=== PATIENT | male | born 1950 | race Hispanic/Latino ===

== ENCOUNTER 2016-12-08 19:17 | Inpatient (IN) | payer OTHER ==
[2016-12-08 20:24] LABS: BASO # 0.03 K/mm3 (0.0-2.0); BASO % 0.4 % (0.0-3.0); EOS # 0.1 (0.0-0.7); EOS % 1.3 % (1.5-5.0); GRAN # 5.33 (1.4-6.5); GRAN % 70.7 % (50.0-68.0); HEMATOCRIT 44.7 % (42.0-52.0); LYMPH # 1.5 (1.2-3.4); LYMPH % 19.7 % (22.0-35.0); MEAN CELL VOLUME 86.6 fl (80.0-105.0); MEAN CORPUSCULAR HGB CONC 35.8 g/dl (31.0-37.0); MEAN PLATELET VOLUME 11.1 fl (7.0-11.0); MONO # 0.6 (0.1-0.6); MONO % 7.9 % (1.0-6.0); RED CELL DISTRIBUTION WIDTH 13.5 % (11.5-14.5); WHITE BLOOD COUNT 7.6 10^3/ul (4.5-11.0)
--- NOTE | 2016-12-08 20:32 | ED PDOC ---
Arrival/HPI - General Chief Complaint: Weakness/Neurological Deficit Time Seen by Provider: 12/08/16 19:29 Historian: Patient EM Caveat: Other (Poor historian ) - History of Present Illness Narrative History of Present Illness (Text): 12/08/16 20:37 A 66 year old male, whose past medical history includes DVT of lower extremity, atrial fibrillation, dyspnea, surgical history includes open heart surgery 6 years ago, presents to the emergency department for generalized weakness. The patient also complains of cramps bilaterally in hands and not eating for 3 days. He denies any headaches, fever, chest pain, abdominal pain, or any other complaints at this time. HPI limited due to poor historian. Time/Duration: < week (x2 days) Symptom Onset: Other Symptom Course: Unchanged Activities at Onset: Light Context: Home Past Medical History - Provider Review Nursing Documentation Reviewed: Yes - Tetanus Immunization Tetanus Immunization: Unknown - Cardiac Hx Cardiac Disorders: Yes Hx Cardiac Arrhythmia: Yes (Atrial fibrillation) Hx Congestive Heart Failure: Yes Hx Hypertension: Yes Hx Peripheral Edema: Yes Hx Peripheral Vascular Disease: Yes - Pulmonary Hx Respiratory Disorders: Yes (Pneumonitis) - Neurological Hx Neurological Disorder: Yes Hx Transient Ischemic Attacks (TIA): Yes - HEENT Hx HEENT Disorder: No - Renal Hx Renal Disorder: No - Endocrine/Metabolic Hx Diabetes Mellitus Type 2: Yes - Hematological/Oncological Hx Hepatitis C: Yes - Integumentary Hx Dermatological Disorder: No - Musculoskeletal/Rheumatological Hx Falls: Yes Hx Unsteady Gait: Yes - Gastrointestinal Hx Gastrointestinal Disorders: No - Genitourinary/Gynecological Hx Genitourinary Disorders: No - Psychiatric Hx Anxiety: Yes Hx Depression: Yes Hx Substance Use: Yes (MARIJUANA USE) - Surgical History Hx Cardiac Catheterization: Yes Hx Open Heart Surgery: Yes (CABG) - Suicidal Assessment Feels Threatened In Home Enviroment: No Family/Social History - Physician Review Nursing Documentation Reviewed: Yes Family/Social History: Unknown Family HX Smoking Status: Former Smoker Hx Alcohol Use: No Hx Substance Use: Yes (MARIJUANA USE) Substance used: MARIJUANA Hx Substance Use Treatment: No Allergies/Home Meds Allergies/Adverse Reactions: Allergies acetaminophen [From Percocet] Allergy (Verified 12/08/16 19:46) RASH oxycodone [From Percocet] Allergy (Verified 12/08/16 19:46) RASH warfarin [From Coumadin] Allergy (Verified 12/09/16 12:24) RASH Home Medications: Home Meds Medication Instructions Recorded Confirmed Unobtainable 12/08/16 12/08/16 Review of Systems - Physician Review All systems were reviewed & negative as marked: Yes - Review of Systems Systems not reviewed;Unavailable: Acuity of Condition Constitutional: absent: Fevers Cardiovascular: absent: Chest Pain Gastrointestinal: absent: Abdominal Pain Neurological: absent: Headache Physical Exam Vital Signs Temp Pulse Resp BP Pulse Ox 12/09/16 01:17 68 18 156/72 H 99 12/08/16 23:17 72 20 166/82 H 100 12/08/16 21:17 75 16 169/67 H 99 12/08/16 19:30 97.9 F 101 H 18 171/91 H 98 Temperature: Afebrile Blood Pressure: Hypertensive Pulse: Regular Respiratory Rate: Normal Appearance: Positive for: Well-Appearing, Non-Toxic, Comfortable Pain Distress: None Mental Status: Positive for: Alert and Oriented X 3 - Systems Exam Head: Present: Atraumatic, Normocephalic Pupils: Present: PERRL Extroacular Muscles: Present: EOMI Conjunctiva: Present: Normal Mouth: Present: Moist Mucous Membranes Neck: Present: Normal Range of Motion Respiratory/Chest: Present: Clear to Auscultation, Good Air Exchange. No: Respiratory Distress, Accessory Muscle Use Cardiovascular: Present: Regular Rate and Rhythm, Normal S1, S2. No: Murmurs Abdomen: Present: Normal Bowel Sounds. No: Tenderness, Distention, Peritoneal Signs Back: Present: Normal Inspection Upper Extremity: Present: Normal Inspection. No: Cyanosis, Edema Lower Extremity: Present: Normal Inspection. No: Edema Neurological: Present: GCS=15, CN II-XII Intact, Speech Normal Skin: Present: Warm, Dry, Normal Color. No: Rashes Psychiatric: Present: Alert, Oriented x 3, Normal Insight, Normal Concentration Medical Decision Making ED Course and Treatment: 12/08/16 20:38 Impression: A 66 year old male with generalized weakness. Plan: -- EKG -- Head CT -- Labs -- Chest X-ray -- Urinalysis -- Reassess and disposition Prior Visits: Notes and results from previous visits were reviewed. The patient was last seen in the emergency department on 02/01/14 for chest pain. The patient was hospitalized. Progress Notes: Reviewed EKG, atrial flutter at 98 bpm[address] Non-specific ST/T wave changes. 12/08/16 21:27 Reviewed radiology, Chest X-ray shows no acute processes. CT Head shows: Brain: [id number] atrophy. No intracranial hemorrhage. No mass. Mild encephalomalacia within LEFT frontal region. Few scattered foci of decreased attenuation within periventricular/subcortical white matter. No definite edema. Ventricles: No hydrocephalus. Bones/joints: No acute fracture. Soft tissues: Unremarkable. Vasculature: Atherosclerotic disease of intracranial arteries. Sinuses: No acute sinusitis. Mastoid air cells: No mastoid effusion. Orbits: Unremarkable as visualized. IMPRESSION: 1. Nonspecific white matter changes. Acute infarction may be CT occult within first 24 hours. If a focal deficit persists, consider followup CT or MRI for further evaluation. 2. Incidental/non-acute findings are described above 12/08/16 22:[address] Gardner, covering for Dr. Herring, who is aware and agrees with plan. president celebrity acquistion notified. Pt will go to remote telemetry observation for hyperglycemia under Dr. Herring's service. - Lab Interpretations Microbiology Results: Microbiology Results 12/08/16 20:40 Blood-Venous Blood Culture - Preliminary NO GROWTH AFTER 48 HOURS 12/08/16 17:32 Blood-Venous Blood Culture - Preliminary NO GROWTH AFTER 48 HOURS 12/09/16 13:00 Nose MRSA Culture (Admit) - Final MRSA NOT DETECTED Lab Results: 12/09/16 10:00 12/09/16 10:00 Lab Results 12/09/16 12:53: Ammonia < 9 L 12/09/16 10:00: Sodium 139, Potassium 3.4 L, Chloride 99, Carbon Dioxide 18 L, Anion Gap 25 H, BUN 11, Creatinine 1.0, Est GFR ( Amer) > 60, Est GFR ( Non-Af Amer) > 60, Random Glucose 460 H*, Calcium 9.2, Total Bilirubin 1.0, AST 29, ALT 15, Alkaline Phosphatase 111, Total Protein 6.5, Albumin 3.8, Globulin 2.7, Albumin/Globulin Ratio 1.4 12/09/16 10:00: WBC 9.0, RBC 4.90, Hgb 15.2, Hct 43.5, MCV 88.8, MCH 31.0, MCHC 34.9, RDW 13.9, Plt Count 191, MPV 11.9 H, Gran % 82.3 H, Lymph % (Auto) 11.2 L , Merrick % (Auto) 5.6, Eos % (Auto) 0.7 L, Baso % (Auto) 0.2, Gran # 7.43 H, Lymph # 1.0 L, Merrick # 0.5, Eos # 0.1, Baso # 0.02 12/09/16 09:02: POC Glucose (mg/dL) 483 H* 12/09/16 08:10: PT 11.4, INR 1.06, APTT 22.3 L, D-Dimer, Quantitative 1.30 H 12/09/16 08:10: Free T4 2.06, TSH 3rd Generation 2.61 12/09/16 07:20: POC Glucose (mg/dL) 495 H* 12/09/16 07:10: Total Creatine Kinase 49, Troponin I 0.04, Triglycerides 219 H, Cholesterol 161, LDL Cholesterol Direct 104, HDL Cholesterol 30, Prolactin 19.3 H 12/09/16 07:05: Hemoglobin A1c 12.7 H 12/09/16 05:17: POC Glucose (mg/dL) 380 H 12/09/16 03:30: Urine Opiates Screen Negative, Urine Methadone Screen Negative, Ur Barbiturates Screen Negative, Ur Phencyclidine Scrn Negative, Ur Amphetamines Screen Negative, U Benzodiazepines Scrn Positive H, U Oth Cocaine Metabols Negative, U Cannabinoids Screen Positive H 12/09/16 03:30: Urine Color Yellow, Urine Appearance Clear, Urine pH 6.5, Ur Specific [place] 1.010, Urine Protein 30 H, Urine Glucose (UA) >=1000, Urine Ketones Negative, Urine Blood Trace-lysed H, Urine Nitrate Negative, Urine Bilirubin Negative, Urine Urobilinogen 1.0 H, Ur Leukocyte Esterase Negative, Urine RBC 0 - 2, Urine WBC 0 - 2, Ur Epithelial Cells 0 - 2 12/09/16 00:50: Troponin I 0.04 D 12/09/16 00:44: POC Glucose (mg/dL) 398 H 12/08/16 17:32: Salicylates < 1 L 12/08/16 17:32: TSH 3rd Generation 3.23, Alcohol, Quantitative < 10 12/08/16 17:32: Sodium 136, Potassium 3.4 L, Chloride 96 L, Carbon Dioxide 26, Anion Gap 17, BUN 10, Creatinine 1.0, Est GFR ( Amer) > 60, Est GFR (Non- Af Amer) > 60, Random Glucose 495 H* D, Calcium 9.6, Phosphorus 2.9, Magnesium 1.8, Total Bilirubin 1.2, AST 25, ALT 25, Alkaline Phosphatase 133, Lactate Dehydrogenase 480, Total Creatine Kinase 50, Troponin I 0.03 D, Total Protein 7.0, Albumin 4.1, Globulin 2.9, Albumin/Globulin Ratio 1.4 12/08/16 17:32: PT 11.2, INR 1.04, APTT 22.4 L 12/08/16 17:32: WBC 7.6 D, RBC 5.16, Hgb 16.0, Hct 44.7, MCV 86.6, MCH 31.0, MCHC 35.8, RDW 13.5, Plt Count 189, MPV 11.1 H, Gran % 70.7 H, Lymph % (Auto) 19.7 L, Merrick % (Auto) 7.9 H, Eos % (Auto) 1.3 L, Baso % (Auto) 0.4, Gran # 5.33 , Lymph # 1.5, Merrick # 0.6, Eos # 0.1, Baso # 0.03 I have reviewed the lab results: Yes - RAD Interpretation Radiology Orders: 12/08/16 19:46 HEAD W/O CONTRAST [CT] Stat 12/08/16 19:47 CHEST PORTABLE [RAD] Stat 12/09/16 05:33 HEAD W/O (CODE STROKE) [CT] Stat 12/09/16 07:25 DUPLEX LOWER EXTRM VEIN BILAT [US] Urgent 12/09/16 13:31 ABDOMEN COMPLETE [US] Stat 12/10/16 05:00 BRAIN WITHOUT CONTRAST [MRI] Stat 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 Hand: ED Physician, Radiologist - EKG Interpretation Interpreted by ED Physician: Yes Type: 12 lead EKG - Medication Orders Current Medication Orders: Aspirin (Aspirin Chewable) 81 mg PO DAILY [facility] Last Admin: 12/10/16 09:42 Dose: 81 mg Atorvastatin Calcium (Lipitor) 40 mg PO DIN CM Last Admin: 12/10/16 17:08 Dose: 40 mg Gabapentin (Neurontin) 300 mg PO TID CM PRN Reason: Protocol Last Admin: 12/10/16 17:09 Dose: 300 mg Re-Assess: Reassess Psych Meds Document 12/10/16 18:09 [id number] (Rec: 12/10/16 18:21 [id number] [facility] [id number] Reassess Psych Med Effective Levetiracetam (Keppra 500mg Ivpb) 500 mg in 100 mls @ 460 mls/hr IV Q12 [facility] Last Admin: 12/10/16 21:35 Dose: 460 mls/hr Insulin Detemir (Levemir) 20 unit SC Q12 CM Last Admin: 12/10/16 22:30 Dose: 20 unit Insulin Human Regular (Humulin R High) 0 units SC ACHS CM PRN Reason: Protocol Last Admin: 12/10/16 22:30 Dose: Not Given Non-Admin Reason: Blood Sugar Parameter Levetiracetam (Keppra) 500 mg PO BID [facility] Last Admin: 12/09/16 11:37 Dose: Not Given Non-Admin Reason: NPO Comments: residents made aware of failed swallow screen. awaiting new orders Lorazepam (Ativan) 2 mg IVP Q2 PRN; Protocol PRN Reason: Seizure activity Last Admin: 12/10/16 21:00 Dose: 2 mg Re-Assess: Reassess Psych Meds Document 12/10/16 21:30 PD (Rec: 12/10/16 23:29 PD [id number]) Reassess Psych Med Effective Metoprolol Tartrate (Lopressor) 5 mg IVP Q6H PRN PRN Reason: Systolic Blood Pressure Last Admin: 12/09/16 16:57 Dose: 5 mg Metoprolol Tartrate (Lopressor) 25 mg PO BID [facility] Last Admin: 12/10/16 17:08 Dose: 25 mg Pantoprazole Sodium (Protonix Ec Tab) 40 mg PO 0600 [facility] Last Admin: 12/11/16 05:23 Dose: 40 mg Rivaroxaban (Xarelto) 15 mg PO DAILY [facility] PRN Reason: Protocol Last Admin: 12/09/16 11:37 Dose: Not Given Non-Admin Reason: NPO Thiamine HCl (Vitamin B1 Inj) 100 mg IM DAILY [facility] Last Admin: 12/10/16 09:43 Dose: 100 mg Discontinued Medications Enoxaparin Sodium (Lovenox) 100 mg SC Q12H [facility] PRN Reason: Protocol Last Admin: 12/11/16 05:32 Dose: 100 mg Levetiracetam 1,000 mg/ Sodium (Chloride) 110 mls @ 440 mls/hr IV ONCE ONE Stop: 12/09/16 08:10 Last Admin: 12/09/16 08:16 Dose: 440 mls/hr Insulin Human Regular 100 (units/ Sodium Chloride) 100 mls @ 1 mls/hr IV .Q24H PRN; Protocol; 1 UNITS/HR PRN Reason: TITRATE PER MD ORDER Stop: 12/10/16 10:00 Last Titration: 12/10/16 07:16 Dose: 1.5 units/hr, 1.5 mls/hr Potassium Chloride (Potassium Chloride 20 Meq/100 Ml) 20 meq in 100 mls @ 50 mls/hr IVPB Q2H CM Stop: 12/09/16 14:29 Last Admin: 12/09/16 15:21 Dose: 50 mls/hr Sodium Chloride (Sodium Chloride 0.9%) 2,000 mls @ 999 mls/hr IV .Q2H1M STA Stop: 12/09/16 12:29 Last Admin: 12/09/16 10:39 Dose: 999 mls/hr Potassium Chloride (Potassium Chloride 20 Meq/100 Ml) 20 meq in 100 mls @ 50 mls/hr IVPB Q2H CM Stop: 12/10/16 09:14 Last Admin: 12/10/16 08:28 Dose: 50 mls/hr Insulin Human Regular (Humulin R) 6 units SC STAT STA Stop: 12/08/16 22:01 Last Admin: 12/08/16 22:10 Dose: 6 units Labetalol HCl (Trandate) 10 mg IV Q6 [facility] Last Admin: 12/10/16 00:00 Dose: Not Given Non-Admin Reason: BP Parameters Not Met Labetalol HCl (Trandate) 10 mg IV ONCE ONE Stop: 12/09/16 18:24 Last Admin: 12/09/16 18:36 Dose: 10 mg Lorazepam (Ativan) Confirm Administered Dose 2 mg .ROUTE .STK-MED ONE Stop: 12/09/16 05:30 Last Admin: 12/09/16 07:00 Dose: Lorazepam (Ativan) 2 mg IVP ONCE ONE PRN Reason: Protocol Stop: 12/09/16 05:34 Last Admin: 12/09/16 06:59 Dose: 2 mg Lorazepam (Ativan) 2 mg IVP Q6H PRN; Protocol PRN Reason: Seizure activity Last Admin: 12/09/16 08:06 Dose: 2 mg Re-Assess: Reassess Psych Meds Document 12/09/16 10:00 JF (Rec: 12/09/16 15:55 [facility] [id number]) Reassess Psych Med Effective Lorazepam (Ativan) Confirm Administered Dose 2 mg .ROUTE .STK-MED ONE Stop: 12/09/16 07:15 Metoprolol Tartrate (Lopressor) 25 mg PO BID CM Last Admin: 12/09/16 17:07 Dose: Not Given Non-Admin Reason: NPO Pantoprazole Sodium (Protonix Inj) 40 mg IVP DAILY [facility] Last Admin: 12/10/16 09:43 Dose: 40 mg Potassium Chloride (K-Dur 20 Meq Er Tab) 40 meq PO STAT STA Stop: 12/08/16 23:26 Last Admin: 12/08/16 23:31 Dose: 40 meq - Scribe Statement The provider has reviewed the documentation as recorded by the Abdi Montez Provider Scribe Attestation: All medical record entries made by the Peteribvalentino were at my direction and personally dictated by me. I have reviewed the chart and agree that the record accurately reflects my personal performance of the history, physical exam, medical decision making, and the department course for this patient. I have also personally directed, reviewed, and agree with the discharge instructions and disposition. Disposition/Present on Arrival - Present on Arrival Any Indicators Present on Arrival: No History of DVT/PE: Yes History of Uncontrolled Diabetes: No Urinary Catheter: No History of Decub. Ulcer: No History Surgical Site Infection Following: None - Disposition Have Diagnosis and Disposition been Completed?: Yes Diagnosis: Dehydration, Hyperglycemia Disposition: HOSPITALIZED Disposition Time: 23:00 Condition: FAIR
[2016-12-08 20:37] LABS: ALB/GLOB RATIO 1.4 (1.1-1.8); ALKALINE PHOSPHATASE 133 U/L (38-133); ALT/SGPT 25 U/L (7-56); AST/SGOT 25 U/L (15-59); BILIRUBIN,TOTAL 1.2 mg/dL (0.2-1.3); BLOOD UREA NITROGEN 10 mg/dL (7-21); CALCIUM 9.6 mg/dL (8.4-10.5); CARBON DIOXIDE 26 mmol/L (21-33); CHLORIDE 96 mmol/L (98-107); GFR AFRICAN-AMERICAN > 60; MAGNESIUM 1.8 mg/dL (1.7-2.2); PHOSPHOROUS 2.9 mg/dL (2.5-4.5); POTASSIUM 3.4 mmol/L (3.6-5.0); SODIUM 136 mmol/L (132-148)
[2016-12-08 20:43] LABS: INR 1.04 (0.93-1.08); PARTIAL THROMBOPLASTIN TIME 22.4 Seconds (23.7-30.8)
[2016-12-08 20:47] LABS: TROPONIN I 0.03 ng/mL
[2016-12-08 20:49] LABS: ALCOHOL SERUM < 10 mg/dL (0-10)
[2016-12-08 20:50] LABS: GLUCOSE,RANDOM 495 mg/dL (70-110)
[2016-12-08 21:07] LABS: THYROID STIMULATING HORMONE 3.23 mIU/mL (0.46-4.68)
--- NOTE | 2016-12-08 21:26 | CT ---
EXAM: CT Head Without Intravenous Contrast CLINICAL HISTORY: 66 years old, male; Signs and symptoms; Altered mental status/memory loss; Additional info: AMS TECHNIQUE: Axial computed tomography images of the head/brain without intravenous contrast. All CT scans at this facility use one or more dose reduction techniques, viz.: automated exposure control; ma/kV adjustment per patient size (including targeted exams where dose is matched to indication; i.e. head); or iterative reconstruction technique. COMPARISON: No relevant prior studies available. FINDINGS: Brain: [id number] atrophy. No intracranial hemorrhage. No mass. Mild encephalomalacia within LEFT frontal region. Few scattered foci of decreased attenuation within periventricular/subcortical white matter. No definite edema. Ventricles: No hydrocephalus. Bones/joints: No acute fracture. Soft tissues: Unremarkable. Vasculature: Atherosclerotic disease of intracranial arteries. Sinuses: No acute sinusitis. Mastoid air cells: No mastoid effusion. Orbits: Unremarkable as visualized. IMPRESSION: 1. Nonspecific white matter changes. Acute infarction may be CT occult within first 24 hours. If a focal deficit persists, consider followup CT or MRI for further evaluation. 2. Incidental/non-acute findings are described above.
[2016-12-08] MEDS ORDERED: Insulin Regular 1 UNITS/0.01 ML ML SC STA (22:00)
[2016-12-08] MEDS ORDERED: Potassium Chloride 20 mEq ER Tab PO STA (23:25)
--- NOTE | 2016-12-09 02:03 | CP.PCM.HP ---
History of Present Illness - History of Present Illness History of Present Illness: CC: Weakness HPI: Patient is a 66 year old male with pmh sig for CAD, CABG in 2010, Afib, right illofemoral vein DVT, CHF, and DM2 who complains of weakness and bilateral upper extremity hand cramping, tremor and numbness sensations. Patient is noted to be poor historian and with sporadic recall of past medical history and current condition. Patient reports for the past three days he has not felt himself. He reports feeling fatigued and with generalized weakness. He reports minimal nutritional intake and limited clear fluids. He does report drinking mostly 2 Liter bottles of Coca-Cola as his primary mode of hydration. Patient reports he has episodes of cramping, twitching that last 1-3 minutes and periodically happen through out the day without pattern. 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 Associated symptoms for patient include shortness of breath with walking. Patient reports for past few months he experiences shortness of breath after walking half a block. He denies headache, fever, chills, chest pain, abdominal pain or change in bowel habits. PMH: Afib, CHF, hx of DVT PSH: CABG in 2010 FMH: Non-contributory SH: Tobacco: former smoker, ETOH: Denies, ID: THC, denies IVDA ALL: Acetaminophen and oxycodone Meds: See JUN PMD: [facility] Present on Admission - Present on Admission Any Indicators Present on Admission: Yes History of DVT/PE: Yes History of Uncontrolled Diabetes: No Urinary Catheter: No Decubitus Ulcer Present: No Review of Systems - Constitutional Constitutional: Headache. absent: Chills, Fever - EENT Eyes: absent: Blurred Vision, Change in Vision, Diplopia Ears: absent: Decreased Hearing, Ear Pain Nose/Mouth/Throat: absent: Epistaxis, Nasal Discharge, Sore Throat - Cardiovascular Cardiovascular: Dyspnea on Exertion (with walking up to 1/2 block). absent: Chest Pain, Chest Pain at Rest, Leg Edema, Orthopnea, Paroxysmal Nocturnal Dyspnea, Rapid Heart Rate - Respiratory Respiratory: absent: Cough, Dyspnea, Wheezing - Gastrointestinal Gastrointestinal: absent: Abdominal Pain, Bloating, Change in Bowel Habits - Genitourinary Genitourinary: absent: Difficulty Urinating, Dysuria, Hematuria - Integumentary Integumentary: absent: Pruritus, Rash, Swelling - Neurological Neurological: Weakness (generalized). absent: Abnormal Gait, Convulsions, Dizziness, Frequent Falls, Sensory Deficit Additional comments: periodic cramping/twitching with hands bilateral as well as facial muscles - Psychiatric Psychiatric: absent: Anxiety, Depression, Suicidal Ideation - Hematologic/Lymphatic Hematologic: Easy Bruising (secondary to blood thinners) Past Patient History - Tetanus Immunizations Tetanus Immunization: Unknown - Past Medical History & Family History Past Medical History?: Yes - Past Social History Smoking Status: Former Smoker Alcohol: None Drugs: Cannabis (hx of) - CARDIAC Hx Cardiac Disorders: Yes Hx Cardia Arrhythmia: Yes (Atrial fibrillation) Hx Congestive Heart Failure: Yes Hx Hypertension: Yes Hx Peripheral Edema: Yes Hx Peripheral Vascular Disease: Yes - PULMONARY Hx Respiratory Disorders: Yes (Pneumonitis) - NEUROLOGICAL Hx Neurological Disorder: Yes Hx Transient Ischemic Attacks (TIA): Yes - HEENT Hx HEENT Problems: No - RENAL Hx Chronic Kidney Disease: No - ENDOCRINE/METABOLIC Hx Diabetes Mellitus Type 2: Yes - HEMATOLOGICAL/ONCOLOGICAL Hx Hepatitis C: Yes - INTEGUMENTARY Hx Dermatological Problems: No - MUSCULOSKELETAL/RHEUMATOLOGICAL Hx Falls: Yes Hx Unsteady Gait: Yes - GASTROINTESTINAL Hx Gastrointestinal Disorders: No - GENITOURINARY/GYNECOLOGICAL Hx Genitourinary Disorders: No - PSYCHIATRIC Hx Anxiety: Yes Hx Depression: Yes Hx Substance Use: Yes (MARIJUANA USE) - SURGICAL HISTORY Hx Cardiac Catheterization: Yes Hx Open Heart Surgery: Yes (CABG) Meds Allergies/Adverse Reactions: Allergies Allergy/AdvReac Type Severity Reaction Status Date / Time acetaminophen [From Percocet] Allergy RASH Verified 12/08/16 19:46 oxycodone [From Percocet] Allergy RASH Verified 12/08/16 19:46 Physical Exam - Constitutional Appears: Well - Head Exam Head Exam: ATRAUMATIC, NORMAL INSPECTION, NORMOCEPHALIC - Eye Exam Eye Exam: EOMI, PERRL Pupil Exam: NORMAL ACCOMODATION, PERRL - ENT Exam ENT Exam: Mucous Membranes Dry, Normal Exam - Neck Exam Neck exam: Positive for: Full Rom. Negative for: Tenderness - Respiratory Exam Respiratory Exam: Clear to Auscultation Bilateral, NORMAL BREATHING PATTERN - Cardiovascular Exam Cardiovascular Exam: Irregular Rhythm, +S1, +S2 - GI/Abdominal Exam GI & Abdominal Exam: Distended, Normal Bowel Sounds, Soft - Extremities Exam Extremities exam: Positive for: normal inspection, pedal pulses present. Negative for: calf tenderness - Back Exam Back exam: NORMAL INSPECTION, paraspinal tenderness - Neurological Exam Neurological exam: Alert, CN II-XII Intact, Normal Gait, Oriented x3, Reflexes Normal - Psychiatric Exam Psychiatric exam: Normal Affect, Normal Mood - Skin Skin Exam: Dry, Intact Additional comments: statis dermatitis anterior shins bilateral, surgical scar noted left anterior benitez of lower extremity Results - Vital Signs Recent Vital Signs: Last Vital Signs Temp 97.9 F 12/08/16 19:30 Pulse 101 H 12/08/16 19:30 Resp 18 12/08/16 19:30 BP 171/91 H 12/08/16 19:30 Pulse Ox 98 12/08/16 19:30 - Labs Result Diagrams: 12/08/16 17:32 12/08/16 17:32 Labs: Laboratory Results - last 24 hr 12/09/16 12/09/16 00:44 00:50 POC Glucose (mg/dL) 398 H Troponin I 0.04 D Assessment & Plan - Assessment and Plan (Free Text) Assessment: 66 year old male with pmh sig for CAD, CABG in 2010, Afib, hx of DVT, and DM who presents to ED complaining of 3 day history of weakness and bilateral hand and face tremor/twitching episodes. Patient is noted to be euvolemic with minimal hypokalemia and elevated bg of 400 plus. Patient is admitted for observation. Plan: 1. Generalized weakness - Generalized weakness for past 3 days, afebrile on admission - K 3.4, bg 441, other electrolytes normal, replace potassium, continue to monitor - TSH normal - Urine drug screen - Sputum clx, blood clx, UA, clx - Neurovascularly intact, Head CT showing nonspecific white matter changes, acute infarction may be CT occult within first 24 hours. If a focal deficit persists consider follow up CT or MRI for further evaluation - Neuro checks Q4H 2. hx of Atrial fibrillation - EKG in ED showing Atrial Flutter at 98 bpm, non-specific ST/T wave changes - rate control with Lopressor - Heparin and ASA - Continue to monitor 3. hx of CAD - Lipid panel - Trending troponins - Statin - heart healthy diet 4. DM2 - HgA1c - ACHS - ISS-high 5. GI/DVT ppx - Protonix - Heparin SC - Date & Time Date: 12/09/16 Time: 02:28
[2016-12-09 03:57] LABS: PH,URINE 6.5 (4.7-8.0); URINE BILIRUBIN NEGATIVE (NEGATIVE); URINE BLOOD TRACE-LYSED (NEGATIVE); URINE GLUCOSE (UA) >=1000 mg/dL (NEGATIVE); URINE KETONE NEGATIVE (NEGATIVE); URINE LEUKOCYTE ESTERASE NEGATIVE Leu/uL (NEGATIVE); URINE PROTEIN 30 mg/dL (<30 mg/dL)
[2016-12-09 04:03] LABS: URINE APPEARANCE CLEAR (CLEAR); URINE COLOR YELLOW (YELLOW)
[2016-12-09 04:12] LABS: URINE EPITHELIAL CELLS 0 - 2 /hpf (0-5); URINE RBC 0 - 2 /hpf (0-2); URINE WBC 0 - 2 /hpf (0-6)
[2016-12-09] MEDS: Metoprolol 1 mg/ml Inj IVP PRN ×2 (05:30→16:57)
--- NOTE | 2016-12-09 05:50 | CP.PCM.PN ---
Subjective - Date & Time of Evaluation Date of Evaluation: 12/09/16 Time of Evaluation: 05:44 - Subjective Subjective: Rapid Response Note FLAT HAMMERER called for seizure like activity witnessed by nurse at 5:15am. FLAT HAMMERER responded immediately. As per nurse, patient was having generalized convulsions. Patients vitals noted to be BP 208/130, P: 92, R: 22, 02: 99 Gluc : 160. He was noted to be in a.flutter, rate controlled which he was on admission. At 5:30am, patient was noted to be holding up his L upper extremity with L eye slightly closed with both eyes blinking witnessed by FLAT HAMMERER team. Patient was talking coherently throughout activity. No tongue biting was noted. 2mg of Ativan was given. Objective - Vital Signs/Intake and Output Vital Signs (last 24 hours): Temp Pulse Resp BP Pulse Ox 97.9 F 68 18 156/72 H 99 12/08/16 19:30 12/09/16 01:17 12/09/16 01:17 12/09/16 01:17 12/09/16 01:17 - Medications Medications: Current Medications Aspirin (Aspirin Chewable) 81 mg PO DAILY [facility] Atorvastatin Calcium (Lipitor) 40 mg PO DIN [facility] Heparin Sodium (Porcine) (Heparin) 5,000 units SC Q12 [facility] PRN Reason: Protocol Insulin Human Regular (Humulin R High) 0 units SC ACHS [facility] PRN Reason: Protocol Lorazepam (Ativan) 2 mg IVP ONCE ONE PRN Reason: Protocol Stop: 12/09/16 05:34 Metoprolol Tartrate (Lopressor) 5 mg IVP Q6H PRN PRN Reason: Systolic Blood Pressure Pantoprazole Sodium (Protonix Inj) 40 mg IVP DAILY [facility] - Labs Labs: PT 11.2 Seconds (9.9-11.8) 12/08/16 17:32 INR 1.04 (0.93-1.08) 12/08/16 17:32 APTT 22.4 Seconds (23.7-30.8) L 12/08/16 17:32 - Constitutional Appears: No Acute Distress - Head Exam Head Exam: ATRAUMATIC, NORMAL INSPECTION, NORMOCEPHALIC - Eye Exam Eye Exam: Normal appearance, PERRL Pupil Exam: NORMAL ACCOMODATION, PERRL - ENT Exam ENT Exam: Mucous Membranes Moist - Neck Exam Neck Exam: Full ROM - Respiratory Exam Respiratory Exam: Clear to Ausculation Bilateral, NORMAL BREATHING PATTERN. absent: Rales, Rhonchi, Wheezes - Cardiovascular Exam Cardiovascular Exam: Irregular Rhythm, +S1, +S2. absent: Gallop, Rubs, Murmur - GI/Abdominal Exam GI & Abdominal Exam: Soft, Normal Bowel Sounds. absent: Rigid, Tenderness, Mass , Rebound - Extremities Exam Extremities Exam: Normal Inspection. absent: Calf Tenderness, Pedal Edema - Neurological Exam Neurological Exam: Alert, Awake, CN II-XII Intact, Oriented x3 Neuro motor strength exam: Left Upper Extremity: 4, Right Upper Extremity: 5, Left Lower Extremity: 5, Right Lower Extremity: 5 - Psychiatric Exam Psychiatric exam: Normal Affect, Normal Mood - Skin Skin Exam: Dry, Intact, Normal Color, Warm Assessment and Plan - Assessment and Plan (Free Text) Assessment: This is a 66Y M with PMH HTN, a.fib, CAD, DM admitted for L arm pain x 3 days. FLAT HAMMERER called for seizure like activity. Of note, head CT in ED was negative for acute findings. Utox positive for benzo and marijuana. Plan: - Repeat head CT - Consult Neuro - EKG showed atrial flutter with HR@95 - Lopressor given - CK ordered - seizure precaution/aspiration precaution
--- NOTE | 2016-12-09 07:46 | RAD ---
HISTORY: Altered mental status COMPARISON: 02/01/2014. FINDINGS: LUNGS: There is mild pulmonary venous congestion. No lobar consolidation. PLEURA: No significant pleural effusion identified, no pneumothorax apparent. CARDIOVASCULAR: The heart is normal in size. Status post CABG. OSSEOUS STRUCTURES: No significant abnormalities. VISUALIZED UPPER ABDOMEN: Normal. OTHER FINDINGS: None. IMPRESSION: No active pulmonary disease.
[2016-12-09] MEDS ORDERED: levETIRAcetam 1,000 MG in Sodium Chloride 0.9% 100 ML IV ONE (07:56)
[2016-12-09 08:04] LABS: TROPONIN I 0.04 ng/mL
--- NOTE | 2016-12-09 08:08 | CT ---
PROCEDURE: CT HEAD WITHOUT CONTRAST. HISTORY: seizure COMPARISON: 12/08/2016. TECHNIQUE: Axial computed tomography images were obtained through the head/brain without intravenous contrast. Radiation dose: Total exam DLP = 802.95 mGy-cm. This CT exam was performed using one or more of the following dose reduction techniques: Automated exposure control, adjustment of the mA and/or kV according to patient size, and/or use of iterative reconstruction technique. FINDINGS: HEMORRHAGE: No intracranial hemorrhage. BRAIN: There is focal cystic encephalomalacia in the left frontal lobe. There is no mass, mass effect or abnormal extra-axial fluid collection. There are mild chronic microangiopathic changes. VENTRICLES: There is moderate age-related global parenchymal volume loss and proportionate enlargement of the ventricles and cortical sulci. CALVARIUM: The skull base and calvarium are normal. PARANASAL SINUSES: Predominantly clear. MASTOID AIR CELLS: Predominantly clear. OTHER FINDINGS: None. IMPRESSION: 1. No acute intracranial abnormality. If there is a persistent focal neurologic deficit and an ongoing clinical concern for acute infarction, an MRI of the brain without intravenous contrast would be a more sensitive modality for evaluation of hyperacute/acute ischemic infarction. 2. Cystic encephalomalacia in the left frontal lobe, sequela of remote MCA territory infarction. 3. Mild chronic microangiopathic changes and moderate age-related global parenchymal volume loss. Important findings were discussed with Dr. Cox on 12/09/2016 at 8:05 a.m.
[2016-12-09] MEDS: Insulin Reg-HIGH-Coverage SC SCH ×3 (08:19→17:07)
[2016-12-09 08:26] LABS: INR 1.06 (0.93-1.08); PARTIAL THROMBOPLASTIN TIME 22.3 Seconds (23.7-30.8)
[2016-12-09 08:28] LABS: D DIMER 1.3 mg/L FEU (0-0.50)
--- NOTE | 2016-12-09 08:30 | CP.PCM.PN ---
Subjective - Date & Time of Evaluation Date of Evaluation: 12/09/16 Time of Evaluation: 07:34 - Subjective Subjective: RAPID RESPONSE NOTE/CODE STROKE Rapid response was called at 7:34am for seizure like activity witnessed by artificial insemination technician, PHOTOGRAPH RETOUCHER responded immediately. Patient was found laying flat on CT table. Per CT staff, patient had a generalized seizure that lasted 3 minutes. This was followed by a 1 minute seizure. Patient vitals noted to be BP: 149/104, HR 147- > 118 RR: 20 Sp02: 97%. Patient appears drowsy but answers questions appropriately. Patient had received total of 6mg of Ativan since admission. No tongue biting was noted. STAT EKG was ordered. Patient was noted to have left sided weakness. CODE STROKE was called at 7:50am. PCP was notified. Objective - Vital Signs/Intake and Output Vital Signs (last 24 hours): Temp Pulse Resp BP Pulse Ox 97.9 F 169 H 18 204/130 H 99 12/08/16 19:30 12/09/16 05:30 12/09/16 01:17 12/09/16 05:30 12/09/16 01:17 Intake and Output: 12/09/16 12/09/16 06:59 18:59 Intake Total 360 Output Total 0 Balance 360 - Medications Medications: Current Medications Aspirin (Aspirin Chewable) 81 mg PO DAILY [facility] Atorvastatin Calcium (Lipitor) 40 mg PO DIN [facility] Gabapentin (Neurontin) 300 mg PO TID [facility] PRN Reason: Protocol Heparin Sodium (Porcine) (Heparin) 5,000 units SC Q12 [facility] PRN Reason: Protocol Insulin Human Regular (Humulin R High) 0 units SC ACHS [facility] PRN Reason: Protocol Last Admin: 12/09/16 08:19 Dose: 15 units Levetiracetam (Keppra) 500 mg PO BID [facility] Lorazepam (Ativan) 2 mg IVP Q6H PRN; Protocol PRN Reason: Seizure activity Metoprolol Tartrate (Lopressor) 5 mg IVP Q6H PRN PRN Reason: Systolic Blood Pressure Last Admin: 12/09/16 05:30 Dose: 5 mg Metoprolol Tartrate (Lopressor) 25 mg PO BID [facility] Pantoprazole Sodium (Protonix Inj) 40 mg IVP DAILY [facility] Rivaroxaban (Xarelto) 15 mg PO DAILY [facility] PRN Reason: Protocol Thiamine HCl (Vitamin B1 Inj) 100 mg IM DAILY [facility] - Labs Labs: PT 11.2 Seconds (9.9-11.8) 12/08/16 17:32 INR 1.04 (0.93-1.08) 12/08/16 17:32 APTT 22.4 Seconds (23.7-30.8) L 12/08/16 17:32 - Constitutional Appears: No Acute Distress - Head Exam Head Exam: ATRAUMATIC, NORMAL INSPECTION - Eye Exam Eye Exam: EOMI, Normal appearance Pupil Exam: NORMAL ACCOMODATION - ENT Exam ENT Exam: Mucous Membranes Moist - Neck Exam Neck Exam: Full ROM - Respiratory Exam Respiratory Exam: Clear to Ausculation Bilateral. absent: Rales, Rhonchi, Wheezes - Cardiovascular Exam Cardiovascular Exam: Tachycardia, +S1, +S2 - GI/Abdominal Exam GI & Abdominal Exam: Soft, Normal Bowel Sounds. absent: Guarding, Rigid, Tenderness, Rebound - Extremities Exam Extremities Exam: absent: Calf Tenderness, Full ROM, Pedal Edema - Back Exam Back Exam: NORMAL INSPECTION - Neurological Exam Neurological Exam: Awake (Drowsy, easily arousable) Neuro motor strength exam: Left Upper Extremity: 0, Right Upper Extremity: 4, Left Lower Extremity: 0, Right Lower Extremity: 4 - Skin Skin Exam: Dry, Normal Color, Warm Assessment and Plan - Assessment and Plan (Free Text) Assessment: 66 yo male with past medical history of CAD, CABG in 2010, Afib, hx of DVT, and DM who presents to ED complaining of 3 day history of weakness and bilateral hand and face tremor/twitching episodes. Patient is noted to be euvolemic with minimal hypokalemia and elevated bg of 400 plus. Rapid response called for seizure activity at CAT scan. 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 STAT Labs ordered: CBC, CMP, Prolactin, TSH, Lipid panel, CPK 2. MRI brain ordered, was not done immediately as MRI checklist could not be verified, Neurology aware 3. Case discussed with Dr Love, recommends giving loading dose of Keppra 1000mg STAT, followed by 500mg BID 4. Neuro checks Q2H, aspiration precautions, seizure precautions, fall precautions, HOB elevated 45 degrees, swallow eval 5. ICU consulted and evaluated the patient, will be transferred to Critical care unit for closer monitoring and more frequent neuro checks 6. Plan discussed with attending Yaneli Negro DO, PGY-1 NIHSS Scale ([place]) Time Performed: 07:40 - How Severe is the Stoke Baseline Level of Consciousness: 1=Drowsy LOC to Questions: 1=One correct LOC to commands: 1=Obeys one correctly Best Gaze: 1=Partial gaze palsy Visual: 0=No visual loss Facial: 1=Minor asymmetry Motor Arm - Left: 4=No movement Motor Arm - Right: 0=No drift Motor Leg - Left: 4=No movement Motor Leg - Right: 0=No drift Limb Ataxia: 0=Absent Sensory: 0=Normal Best Language: 0=No aphasia Dysarthia: 1=Mild to moderate slurring Extinction & Inattention (Neglect): 0=Normal, no object Score: 14 Risk Level: Mod Stroke Risk
[2016-12-09 08:52] LABS: FREE T4 2.06 ng/dL (0.78-2.19)
[2016-12-09 09:05] LABS: THYROID STIMULATING HORMONE 2.61 mIU/mL (0.46-4.68)
[2016-12-09] MEDS ORDERED: levETIRAcetam 500 mg/5ml UD cups PO SCH (10:00)
[2016-12-09 10:10] LABS: BASO # 0.02 K/mm3 (0.0-2.0); BASO % 0.2 % (0.0-3.0); EOS # 0.1 (0.0-0.7); EOS % 0.7 % (1.5-5.0); GRAN # 7.43 (1.4-6.5); GRAN % 82.3 % (50.0-68.0); HEMATOCRIT 43.5 % (42.0-52.0); LYMPH % 11.2 % (22.0-35.0); MEAN CELL VOLUME 88.8 fl (80.0-105.0); MEAN CORPUSCULAR HGB CONC 34.9 g/dl (31.0-37.0); MEAN PLATELET VOLUME 11.9 fl (7.0-11.0); MONO # 0.5 (0.1-0.6); MONO % 5.6 % (1.0-6.0); RED CELL DISTRIBUTION WIDTH 13.9 % (11.5-14.5)
--- NOTE | 2016-12-09 10:11 | CARD ---
APPROVED REPORT EKG Measurement Heart [id number] <Conclusion> Atrial flutter with variable AV block ST & T wave abnormality, consider inferior ischemia ST & T wave abnormality, consider anterolateral ischemia Abnormal ECG
[2016-12-09 10:12] LABS: ALB/GLOB RATIO 1.4 (1.1-1.8); ALKALINE PHOSPHATASE 111 U/L (38-133); ALT/SGPT 15 U/L (7-56); AST/SGOT 29 U/L (15-59); BLOOD UREA NITROGEN 11 mg/dL (7-21); CALCIUM 9.2 mg/dL (8.4-10.5); CARBON DIOXIDE 18 mmol/L (21-33); CHLORIDE 99 mmol/L (98-107); GFR AFRICAN-AMERICAN > 60; POTASSIUM 3.4 mmol/L (3.6-5.0); SODIUM 139 mmol/L (132-148); TOTAL PROTEIN 6.5 g/dL (5.8-8.3)
[2016-12-09 10:14] LABS: GLUCOSE,RANDOM 460 mg/dL (70-110)
[2016-12-09] MEDS ORDERED: Insulin Regular 100 UNITS in Sodium Chloride 0.9% 99 ML IV PRN (10:29)
[2016-12-09] MEDS ORDERED: Sodium Chloride 0.9% 2,000 ML IV STA (10:29)
[2016-12-09 10:47] VITALS: BMI 25.8
--- NOTE | 2016-12-09 11:04 | CP.PCM.CON ---
History of Present Illness - History of Present Illness History of Present Illness: Patient is 66yo male with PMhx of CAD, s/p CABG, Afib, DVT on Xarelto, CHF, DM, ?compliance with meds, who was admitted for weakness and b/l upper extremity tremor, numbness associated with weakness, fatigue. Reported minimal PO intake. This morning, patient had rapid response called while in CAT scan, for witnessed tonic clonic activity, which ceased on its own after 1-2 minutes. Post event patient was confused, with urinary incontinence. Pt had CT head which did not demonstrate acute intracranial pathology. Pt currently awake, alert, speaking in full sentences, denies any major complaints. PMH: Afib, CHF, hx of DVT PSH: CABG in 2010 FMH: Non-contributory SH: Tobacco: former smoker, ETOH: Denies, ID: [id number], denies IVDA ALL: Acetaminophen and oxycodone Meds: See EMR Review of Systems - Review of Systems Review of Systems: as per hpi Past Patient History - Tetanus Immunizations Tetanus Immunization: Unknown - Past Medical History & Family History Past Medical History?: Yes - Past Social History Smoking Status: Former Smoker Alcohol: None Drugs: Cannabis (hx of) - CARDIAC Hx Cardiac Disorders: Yes Hx Cardia Arrhythmia: Yes (Atrial fibrillation) Hx Congestive Heart Failure: Yes Hx Hypertension: Yes Hx Peripheral Edema: Yes Hx Peripheral Vascular Disease: Yes - PULMONARY Hx Respiratory Disorders: Yes (Pneumonitis) - NEUROLOGICAL Hx Neurological Disorder: Yes Hx Transient Ischemic Attacks (TIA): Yes - HEENT Hx HEENT Problems: No - RENAL Hx Chronic Kidney Disease: No - ENDOCRINE/METABOLIC Hx Diabetes Mellitus Type 2: Yes - HEMATOLOGICAL/ONCOLOGICAL Hx Hepatitis C: Yes - INTEGUMENTARY Hx Dermatological Problems: No - MUSCULOSKELETAL/RHEUMATOLOGICAL Hx Falls: Yes Hx Unsteady Gait: Yes - GASTROINTESTINAL Hx Gastrointestinal Disorders: No - GENITOURINARY/GYNECOLOGICAL Hx Genitourinary Disorders: No - PSYCHIATRIC Hx Anxiety: Yes Hx Depression: Yes Hx Substance Use: Yes (MARIJUANA USE) - SURGICAL HISTORY Hx Cardiac Catheterization: Yes Hx Open Heart Surgery: Yes (CABG) Meds Allergies/Adverse Reactions: Allergies Allergy/AdvReac Type Severity Reaction Status Date / Time acetaminophen [From Percocet] Allergy RASH Verified 12/08/16 19:46 oxycodone [From Percocet] Allergy RASH Verified 12/08/16 19:46 - Medications Medications: Current Medications Aspirin (Aspirin Chewable) 81 mg PO DAILY [facility] Atorvastatin Calcium (Lipitor) 40 mg PO DIN CM Gabapentin (Neurontin) 300 mg PO TID CM PRN Reason: Protocol Insulin Human Regular 100 (units/ Sodium Chloride) 100 mls @ 1 mls/hr IV .Q24H PRN; Protocol; 1 UNITS/HR PRN Reason: TITRATE PER MD ORDER Potassium Chloride (Potassium Chloride 20 Meq/100 Ml) 20 meq in 100 mls @ 50 mls/hr IVPB Q2H CM Stop: 12/09/16 14:29 Sodium Chloride (Sodium Chloride 0.9%) 2,000 mls @ 999 mls/hr IV .Q2H1M STA Stop: 12/09/16 12:29 Insulin Human Regular (Humulin R High) 0 units SC ACHS [facility] PRN Reason: Protocol Last Admin: 12/09/16 08:19 Dose: 15 units Levetiracetam (Keppra) 500 mg PO BID [facility] Lorazepam (Ativan) 2 mg IVP Q6H PRN; Protocol PRN Reason: Seizure activity Last Admin: 12/09/16 08:06 Dose: 2 mg Metoprolol Tartrate (Lopressor) 5 mg IVP Q6H PRN PRN Reason: Systolic Blood Pressure Last Admin: 12/09/16 05:30 Dose: 5 mg Metoprolol Tartrate (Lopressor) 25 mg PO BID [facility] Pantoprazole Sodium (Protonix Inj) 40 mg IVP DAILY [facility] Rivaroxaban (Xarelto) 15 mg PO DAILY [facility] PRN Reason: Protocol Thiamine HCl (Vitamin B1 Inj) 100 mg IM DAILY [facility] Physical Exam - Constitutional Appears: Well, Non-toxic, No Acute Distress - Head Exam Head Exam: ATRAUMATIC, NORMAL INSPECTION - Eye Exam Eye Exam: EOMI, PERRL - ENT Exam ENT Exam: Mucous Membranes Dry - Neck Exam Neck exam: Positive for: Full Rom - Respiratory Exam Respiratory Exam: Clear to Auscultation Bilateral, NORMAL BREATHING PATTERN - Cardiovascular Exam Cardiovascular Exam: REGULAR RHYTHM, +S1, +S2 - GI/Abdominal Exam GI & Abdominal Exam: Normal Bowel Sounds, Soft - Extremities Exam Extremities exam: Positive for: normal inspection - Neurological Exam Additional comments: AAOx2, NAD, RUE 5/5, RLE 5/5, LUE 2/5, LLE 3/5 Results - Vital Signs Recent Vital Signs: Last Vital Signs Temp 97.8 F 12/09/16 04:15 Pulse 75 12/09/16 10:15 Resp 22 12/09/16 10:15 BP 136/85 12/09/16 10:15 Pulse Ox 99 12/09/16 10:15 - Labs Result Diagrams: 12/09/16 10:00 12/09/16 10:00 Labs: Laboratory Results - last 24 hr 12/09/16 12/09/16 12/09/16 00:44 00:50 03:30 WBC RBC Hgb Hct MCV MCH MCHC RDW Plt Count MPV Gran % Lymph % (Auto) [place] % (Auto) Eos % (Auto) Baso % (Auto) Gran # Lymph # [place] # Eos # Baso # PT INR APTT D-Dimer, Quantitative Sodium Potassium Chloride Carbon Dioxide Anion Gap BUN Creatinine Est GFR ( Amer) Est GFR (Non-Af Amer) POC Glucose (mg/dL) 398 H Random Glucose Calcium Total Bilirubin AST ALT Alkaline Phosphatase Total Creatine Kinase Troponin I 0.04 D Total Protein Albumin Globulin Albumin/Globulin Ratio Triglycerides Cholesterol LDL Cholesterol Direct HDL Cholesterol Free T4 TSH 3rd Generation Urine Color Yellow Urine Appearance Clear Urine pH 6.5 Ur Specific [place] 1.010 Urine Protein 30 H Urine Glucose (UA) >=1000 Urine Ketones Negative Urine Blood Trace-lysed H Urine Nitrate Negative Urine Bilirubin Negative Urine Urobilinogen 1.0 H Ur Leukocyte Esterase Negative Urine RBC 0 - 2 Urine WBC 0 - 2 Ur Epithelial Cells 0 - 2 Urine Opiates Screen Urine Methadone Screen Ur Barbiturates Screen Ur Phencyclidine Scrn Ur Amphetamines Screen U Benzodiazepines Scrn U Oth Cocaine Metabols U Cannabinoids Screen 12/09/16 12/09/16 12/09/16 03:30 05:17 07:10 WBC RBC Hgb Hct MCV MCH MCHC RDW Plt Count MPV Gran % Lymph % (Auto) [place] % (Auto) Eos % (Auto) Baso % (Auto) Gran # Lymph # [place] # Eos # Baso # PT INR APTT D-Dimer, Quantitative Sodium Potassium Chloride Carbon Dioxide Anion Gap BUN Creatinine Est GFR ( Amer) Est GFR (Non-Af Amer) POC Glucose (mg/dL) 380 H Random Glucose Calcium Total Bilirubin AST ALT Alkaline Phosphatase Total Creatine Kinase 49 Troponin I 0.04 Total Protein Albumin Globulin Albumin/Globulin Ratio Triglycerides 219 H Cholesterol 161 LDL Cholesterol Direct 104 HDL Cholesterol 30 Free T4 TSH 3rd Generation Urine Color Urine Appearance Urine pH Ur Specific [place] Urine Protein Urine Glucose (UA) Urine Ketones Urine Blood Urine Nitrate Urine Bilirubin Urine Urobilinogen Ur Leukocyte Esterase Urine RBC Urine WBC Ur Epithelial Cells Urine Opiates Screen Negative Urine Methadone Screen Negative Ur Barbiturates Screen Negative Ur Phencyclidine Scrn Negative Ur Amphetamines Screen Negative U Benzodiazepines Scrn Positive H U Oth Cocaine Metabols Negative U Cannabinoids Screen Positive H 12/09/16 12/09/16 12/09/16 07:20 08:10 08:10 WBC RBC Hgb Hct MCV MCH MCHC RDW Plt Count MPV Gran % Lymph % (Auto) [place] % (Auto) Eos % (Auto) Baso % (Auto) Gran # Lymph # [place] # Eos # Baso # PT 11.4 INR 1.06 APTT 22.3 L D-Dimer, Quantitative 1.30 H Sodium Potassium Chloride Carbon Dioxide Anion Gap BUN Creatinine Est GFR ( Amer) Est GFR (Non-Af Amer) POC Glucose (mg/dL) 495 H* Random Glucose Calcium Total Bilirubin AST ALT Alkaline Phosphatase Total Creatine Kinase Troponin I Total Protein Albumin Globulin Albumin/Globulin Ratio Triglycerides Cholesterol LDL Cholesterol Direct HDL Cholesterol Free T4 2.06 TSH 3rd Generation 2.61 Urine Color Urine Appearance Urine pH Ur Specific [place] Urine Protein Urine Glucose (UA) Urine Ketones Urine Blood Urine Nitrate Urine Bilirubin Urine Urobilinogen Ur Leukocyte Esterase Urine RBC Urine WBC Ur Epithelial Cells Urine Opiates Screen Urine Methadone Screen Ur Barbiturates Screen Ur Phencyclidine Scrn Ur Amphetamines Screen U Benzodiazepines Scrn U Oth Cocaine Metabols U Cannabinoids Screen 12/09/16 12/09/16 12/09/16 09:02 10:00 10:00 WBC 9.0 RBC 4.90 Hgb 15.2 Hct 43.5 MCV 88.8 MCH 31.0 MCHC 34.9 RDW 13.9 Plt Count 191 MPV 11.9 H Gran % 82.3 H Lymph % (Auto) 11.2 L [place] % (Auto) 5.6 Eos % (Auto) 0.7 L Baso % (Auto) 0.2 Gran # 7.43 H Lymph # 1.0 L [place] # 0.5 Eos # 0.1 Baso # 0.02 PT INR APTT D-Dimer, Quantitative Sodium 139 Potassium 3.4 L Chloride 99 Carbon Dioxide 18 L Anion Gap 25 H BUN 11 Creatinine 1.0 Est GFR ( Amer) > 60 Est GFR (Non-Af Amer) > 60 POC Glucose (mg/dL) 483 H* Random Glucose 460 H* Calcium 9.2 Total Bilirubin 1.0 AST 29 ALT 15 Alkaline Phosphatase 111 Total Creatine Kinase Troponin I Total Protein 6.5 Albumin 3.8 Globulin 2.7 Albumin/Globulin Ratio 1.4 Triglycerides Cholesterol LDL Cholesterol Direct HDL Cholesterol Free T4 TSH 3rd Generation Urine Color Urine Appearance Urine pH Ur Specific [place] Urine Protein Urine Glucose (UA) Urine Ketones Urine Blood Urine Nitrate Urine Bilirubin Urine Urobilinogen Ur Leukocyte Esterase Urine RBC Urine WBC Ur Epithelial Cells Urine Opiates Screen Urine Methadone Screen Ur Barbiturates Screen Ur Phencyclidine Scrn Ur Amphetamines Screen U Benzodiazepines Scrn U Oth Cocaine Metabols U Cannabinoids Screen - Imaging and Cardiology CT scan - head Status: Image reviewed by me, Report reviewed by me Assessment & Plan - Assessment and Plan (Free Text) Assessment: 66yo male a/w seizure like activity ?Seizure r/o CVA DM HTN CAD Afib DVT - currently afebrile, HD stable, comfortable, protecting airway, AAOx2 - CT head reviewed, not acute intra-cranial pathology - Labs with worsening AG acidosis, unclear, ?2/2 lactic acidosis (from seizure) , dehydration, hyperglycemia, although UA ketones neg Recommend: - IVF bolus 2 L - Insulin drip, monirot FS q1hr - Obtain VEEG - Neurology consult - MRI/MRA - monitor electrolytes, keep K>4, Mg>2 - cont with BB, ASA - Xarelto - repeat BMP in afternoon - panculture - CXR - GI ppx critical care time 40minutes
--- NOTE | 2016-12-09 12:40 | CP.PCM.CON ---
<Brock Wade - Last Filed: 12/09/16 12:41> History of Present Illness - History of Present Illness History of Present Illness: Neurology Consult Note for Dr. Love Reason for Consult: Seizures 66 y/o M with PMH of CAD, CABG in 2010, Afib, right illofemoral vein DVT, CHF, and DM2 presents with b/l upper extremity numbness sensations. Patient was very drowsy after being sedated several times for seizures. Information provided is from prior medical records and staff. Patient presented to the hospital and after feeling poorly with new onset of systems over the past 3 days. Patient had been drinking a lot of soda as his only form of hydration over the last several days. Pt had episodes lasting 1-2 minutes of cramping and twitching in his hands. Patient had 2 rapid responses called for seizure like activity. It was noted patient was able to speak coherently throughout episodes. ROS unobtainable due to patient being sedated after seizure activity. PMH: Afib, CHF, hx of DVT PSH: CABG in 2010 FMH: Non-contributory SH: Former tobacco use, denies alcohol or illicit drug use ALL: Acetaminophen, oxycodone, warfarin Meds: Review, as per MAR Review of Systems - Review of Systems Review of Systems: Unobtainable due to being sedated Past Patient History - Tetanus Immunizations Tetanus Immunization: Unknown - Past Medical History & Family History Past Medical History?: Yes - Past Social History Smoking Status: Former Smoker Alcohol: None Drugs: Cannabis (hx of) - CARDIAC Hx Cardiac Disorders: Yes Hx Cardia Arrhythmia: Yes (Atrial fibrillation) Hx Congestive Heart Failure: Yes Hx Hypertension: Yes Hx Peripheral Edema: Yes Hx Peripheral Vascular Disease: Yes - PULMONARY Hx Respiratory Disorders: Yes (Pneumonitis) - NEUROLOGICAL Hx Neurological Disorder: Yes Hx Transient Ischemic Attacks (TIA): Yes - HEENT Hx HEENT Problems: No - RENAL Hx Chronic Kidney Disease: No - ENDOCRINE/METABOLIC Hx Diabetes Mellitus Type 2: Yes - HEMATOLOGICAL/ONCOLOGICAL Hx Hepatitis C: Yes - INTEGUMENTARY Hx Dermatological Problems: No - MUSCULOSKELETAL/RHEUMATOLOGICAL Hx Falls: Yes Hx Unsteady Gait: Yes - GASTROINTESTINAL Hx Gastrointestinal Disorders: No - GENITOURINARY/GYNECOLOGICAL Hx Genitourinary Disorders: No - PSYCHIATRIC Hx Anxiety: Yes Hx Depression: Yes Hx Substance Use: Yes (MARIJUANA USE) - SURGICAL HISTORY Hx Cardiac Catheterization: Yes Hx Open Heart Surgery: Yes (CABG) Meds Allergies/Adverse Reactions: Allergies Allergy/AdvReac Type Severity Reaction Status Date / Time acetaminophen [From Percocet] Allergy RASH Verified 12/08/16 19:46 oxycodone [From Percocet] Allergy RASH Verified 12/08/16 19:46 warfarin [From Coumadin] Allergy RASH Verified 12/09/16 12:24 - Medications Medications: Current Medications Aspirin (Aspirin Chewable) 81 mg PO DAILY [facility] Last Admin: 12/09/16 11:00 Dose: Not Given Atorvastatin Calcium (Lipitor) 40 mg PO DIN [facility] Gabapentin (Neurontin) 300 mg PO TID [facility] PRN Reason: Protocol Insulin Human Regular 100 (units/ Sodium Chloride) 100 mls @ 1 mls/hr IV .Q24H PRN; Protocol; 1 UNITS/HR PRN Reason: TITRATE PER MD ORDER Last Titration: 12/09/16 11:25 Dose: 4 units/hr, 4 mls/hr Potassium Chloride (Potassium Chloride 20 Meq/100 Ml) 20 meq in 100 mls @ 50 mls/hr IVPB Q2H [facility] Stop: 12/09/16 14:29 Last Admin: 12/09/16 11:40 Dose: 50 mls/hr Insulin Human Regular (Humulin R High) 0 units SC ACHS CM PRN Reason: Protocol Last Admin: 12/09/16 08:19 Dose: 15 units Levetiracetam (Keppra) 500 mg PO BID [facility] Last Admin: 12/09/16 11:37 Dose: Not Given Lorazepam (Ativan) 2 mg IVP Q6H PRN; Protocol PRN Reason: Seizure activity Last Admin: 12/09/16 08:06 Dose: 2 mg Metoprolol Tartrate (Lopressor) 5 mg IVP Q6H PRN PRN Reason: Systolic Blood Pressure Last Admin: 12/09/16 05:30 Dose: 5 mg Metoprolol Tartrate (Lopressor) 25 mg PO BID [facility] Pantoprazole Sodium (Protonix Inj) 40 mg IVP DAILY [facility] Last Admin: 12/09/16 11:40 Dose: 40 mg Rivaroxaban (Xarelto) 15 mg PO DAILY [facility] PRN Reason: Protocol Thiamine HCl (Vitamin B1 Inj) 100 mg IM DAILY [facility] Physical Exam - Constitutional Appears: No Acute Distress Additional comments: Drowsy - Head Exam Head Exam: ATRAUMATIC, NORMAL INSPECTION, NORMOCEPHALIC - Eye Exam Eye Exam: Normal appearance - ENT Exam ENT Exam: Mucous Membranes Moist - Neck Exam Neck exam: Positive for: Normal Inspection. Negative for: Lymphadenopathy - Respiratory Exam Respiratory Exam: Clear to Auscultation Bilateral, NORMAL BREATHING PATTERN. absent: Rales, Rhonchi, Wheezes - Cardiovascular Exam Cardiovascular Exam: RRR, +S1, +S2 - GI/Abdominal Exam GI & Abdominal Exam: Normal Bowel Sounds, Soft. absent: Tenderness - Extremities Exam Extremities exam: Positive for: normal inspection. Negative for: calf tenderness, pedal edema - Neurological Exam Neurological exam: CN II-XII Intact Additional comments: Drowsy, follow simple commands No facial asymmetry Motor and sensation intact Normal tone - Psychiatric Exam Psychiatric exam: Normal Affect, Normal Mood - Skin Skin Exam: Intact, Normal Color, Warm Results - Vital Signs Recent Vital Signs: Last Vital Signs Temp 98 F 12/09/16 12:00 Pulse 75 12/09/16 12:10 Resp 7 L 12/09/16 12:10 BP 153/83 H 12/09/16 12:00 Pulse Ox 99 12/09/16 12:10 - Labs Result Diagrams: 12/09/16 10:00 12/09/16 10:00 Labs: Laboratory Results - last 24 hr 12/09/16 12/09/16 12/09/16 00:44 00:50 03:30 WBC RBC Hgb Hct MCV MCH MCHC RDW Plt Count MPV Gran % Lymph % (Auto) [place] % (Auto) Eos % (Auto) Baso % (Auto) Gran # Lymph # [place] # Eos # Baso # PT INR APTT D-Dimer, Quantitative Sodium Potassium Chloride Carbon Dioxide Anion Gap BUN Creatinine Est GFR ( Amer) Est GFR (Non-Af Amer) POC Glucose (mg/dL) 398 H Random Glucose Hemoglobin A1c Calcium Total Bilirubin AST ALT Alkaline Phosphatase Total Creatine Kinase Troponin I 0.04 D Total Protein Albumin Globulin Albumin/Globulin Ratio Triglycerides Cholesterol LDL Cholesterol Direct HDL Cholesterol Free T4 TSH 3rd Generation Prolactin Urine Color Yellow Urine Appearance Clear Urine pH 6.5 Ur Specific [place] 1.010 Urine Protein 30 H Urine Glucose (UA) >=1000 Urine Ketones Negative Urine Blood Trace-lysed H Urine Nitrate Negative Urine Bilirubin Negative Urine Urobilinogen 1.0 H Ur Leukocyte Esterase Negative Urine RBC 0 - 2 Urine WBC 0 - 2 Ur Epithelial Cells 0 - 2 Urine Opiates Screen Urine Methadone Screen Ur Barbiturates Screen Ur Phencyclidine Scrn Ur Amphetamines Screen U Benzodiazepines Scrn U Oth Cocaine Metabols U Cannabinoids Screen 12/09/16 12/09/16 12/09/16 03:30 05:17 07:05 WBC RBC Hgb Hct MCV MCH MCHC RDW Plt Count MPV Gran % Lymph % (Auto) [place] % (Auto) Eos % (Auto) Baso % (Auto) Gran # Lymph # [place] # Eos # Baso # PT INR APTT D-Dimer, Quantitative Sodium Potassium Chloride Carbon Dioxide Anion Gap BUN Creatinine Est GFR ( Amer) Est GFR (Non-Af Amer) POC Glucose (mg/dL) 380 H Random Glucose Hemoglobin A1c 12.7 H Calcium Total Bilirubin AST ALT Alkaline Phosphatase Total Creatine Kinase Troponin I Total Protein Albumin Globulin Albumin/Globulin Ratio Triglycerides Cholesterol LDL Cholesterol Direct HDL Cholesterol Free T4 TSH 3rd Generation Prolactin Urine Color Urine Appearance Urine pH Ur Specific [place] Urine Protein Urine Glucose (UA) Urine Ketones Urine Blood Urine Nitrate Urine Bilirubin Urine Urobilinogen Ur Leukocyte Esterase Urine RBC Urine WBC Ur Epithelial Cells Urine Opiates Screen Negative Urine Methadone Screen Negative Ur Barbiturates Screen Negative Ur Phencyclidine Scrn Negative Ur Amphetamines Screen Negative U Benzodiazepines Scrn Positive H U Oth Cocaine Metabols Negative U Cannabinoids Screen Positive H 12/09/16 12/09/16 12/09/16 07:10 07:20 08:10 WBC RBC Hgb Hct MCV MCH MCHC RDW Plt Count MPV Gran % Lymph % (Auto) [place] % (Auto) Eos % (Auto) Baso % (Auto) Gran # Lymph # [place] # Eos # Baso # PT INR APTT D-Dimer, Quantitative Sodium Potassium Chloride Carbon Dioxide Anion Gap BUN Creatinine Est GFR ( Amer) Est GFR (Non-Af Amer) POC Glucose (mg/dL) 495 H* Random Glucose Hemoglobin A1c Calcium Total Bilirubin AST ALT Alkaline Phosphatase Total Creatine Kinase 49 Troponin I 0.04 Total Protein Albumin Globulin Albumin/Globulin Ratio Triglycerides 219 H Cholesterol 161 LDL Cholesterol Direct 104 HDL Cholesterol 30 Free T4 2.06 TSH 3rd Generation 2.61 Prolactin 19.3 H Urine Color Urine Appearance Urine pH Ur Specific [place] Urine Protein Urine Glucose (UA) Urine Ketones Urine Blood Urine Nitrate Urine Bilirubin Urine Urobilinogen Ur Leukocyte Esterase Urine RBC Urine WBC Ur Epithelial Cells Urine Opiates Screen Urine Methadone Screen Ur Barbiturates Screen Ur Phencyclidine Scrn Ur Amphetamines Screen U Benzodiazepines Scrn U Oth Cocaine Metabols U Cannabinoids Screen 12/09/16 12/09/16 12/09/16 08:10 09:02 10:00 WBC 9.0 RBC 4.90 Hgb 15.2 Hct 43.5 MCV 88.8 MCH 31.0 MCHC 34.9 RDW 13.9 Plt Count 191 MPV 11.9 H Gran % 82.3 H Lymph % (Auto) 11.2 L [place] % (Auto) 5.6 Eos % (Auto) 0.7 L Baso % (Auto) 0.2 Gran # 7.43 H Lymph # 1.0 L [place] # 0.5 Eos # 0.1 Baso # 0.02 PT 11.4 INR 1.06 APTT 22.3 L D-Dimer, Quantitative 1.30 H Sodium Potassium Chloride Carbon Dioxide Anion Gap BUN Creatinine Est GFR ( Amer) Est GFR (Non-Af Amer) POC Glucose (mg/dL) 483 H* Random Glucose Hemoglobin A1c Calcium Total Bilirubin AST ALT Alkaline Phosphatase Total Creatine Kinase Troponin I Total Protein Albumin Globulin Albumin/Globulin Ratio Triglycerides Cholesterol LDL Cholesterol Direct HDL Cholesterol Free T4 TSH 3rd Generation Prolactin Urine Color Urine Appearance Urine pH Ur Specific [place] Urine Protein Urine Glucose (UA) Urine Ketones Urine Blood Urine Nitrate Urine Bilirubin Urine Urobilinogen Ur Leukocyte Esterase Urine RBC Urine WBC Ur Epithelial Cells Urine Opiates Screen Urine Methadone Screen Ur Barbiturates Screen Ur Phencyclidine Scrn Ur Amphetamines Screen U Benzodiazepines Scrn U Oth Cocaine Metabols U Cannabinoids Screen 12/09/16 10:00 WBC RBC Hgb Hct MCV MCH MCHC RDW Plt Count MPV Gran % Lymph % (Auto) [place] % (Auto) Eos % (Auto) Baso % (Auto) Gran # Lymph # [place] # Eos # Baso # PT INR APTT D-Dimer, Quantitative Sodium 139 Potassium 3.4 L Chloride 99 Carbon Dioxide 18 L Anion Gap 25 H BUN 11 Creatinine 1.0 Est GFR ( Amer) > 60 Est GFR (Non-Af Amer) > 60 POC Glucose (mg/dL) Random Glucose 460 H* Hemoglobin A1c Calcium 9.2 Total Bilirubin 1.0 AST 29 ALT 15 Alkaline Phosphatase 111 Total Creatine Kinase Troponin I Total Protein 6.5 Albumin 3.8 Globulin 2.7 Albumin/Globulin Ratio 1.4 Triglycerides Cholesterol LDL Cholesterol Direct HDL Cholesterol Free T4 TSH 3rd Generation Prolactin Urine Color Urine Appearance Urine pH Ur Specific [place] Urine Protein Urine Glucose (UA) Urine Ketones Urine Blood Urine Nitrate Urine Bilirubin Urine Urobilinogen Ur Leukocyte Esterase Urine RBC Urine WBC Ur Epithelial Cells Urine Opiates Screen Urine Methadone Screen Ur Barbiturates Screen Ur Phencyclidine Scrn Ur Amphetamines Screen U Benzodiazepines Scrn U Oth Cocaine Metabols U Cannabinoids Screen Assessment & Plan - Assessment and Plan (Free Text) Plan: 66 y/o M with PMH of CAD, CABG in 2010, Afib, right illofemoral vein DVT, CHF, and DM2 presents with possible seizure after rapid response called on patient. Head CT showed frontal encephalomalacia which can contribute to seizures. Patient will have Brain MRI and EEG performed. Will also recommend an echocardiogram at this time. Will continue to monitor patient. Plan: Brain MRI EEG Keppra 500 mg BID SBP 130-140 Avoid sedative medications Sheri, PGY-2 <Chapin Love - Last Filed: 12/09/16 13:04> Meds - Medications Medications: Current Medications Aspirin (Aspirin Chewable) 81 mg PO DAILY [facility] Last Admin: 12/09/16 11:00 Dose: Not Given Atorvastatin Calcium (Lipitor) 40 mg PO DIN [facility] Gabapentin (Neurontin) 300 mg PO TID [facility] PRN Reason: Protocol Insulin Human Regular 100 (units/ Sodium Chloride) 100 mls @ 1 mls/hr IV .Q24H PRN; Protocol; 1 UNITS/HR PRN Reason: TITRATE PER MD ORDER Last Titration: 12/09/16 11:25 Dose: 4 units/hr, 4 mls/hr Potassium Chloride (Potassium Chloride 20 Meq/100 Ml) 20 meq in 100 mls @ 50 mls/hr IVPB Q2H [facility] Stop: 12/09/16 14:29 Last Admin: 12/09/16 11:40 Dose: 50 mls/hr Insulin Human Regular (Humulin R High) 0 units SC ACHS [facility] PRN Reason: Protocol Last Admin: 12/09/16 08:19 Dose: 15 units Levetiracetam (Keppra) 500 mg PO BID [facility] Last Admin: 12/09/16 11:37 Dose: Not Given Lorazepam (Ativan) 2 mg IVP Q6H PRN; Protocol PRN Reason: Seizure activity Last Admin: 12/09/16 08:06 Dose: 2 mg Metoprolol Tartrate (Lopressor) 5 mg IVP Q6H PRN PRN Reason: Systolic Blood Pressure Last Admin: 12/09/16 05:30 Dose: 5 mg Metoprolol Tartrate (Lopressor) 25 mg PO BID [facility] Pantoprazole Sodium (Protonix Inj) 40 mg IVP DAILY [facility] Last Admin: 12/09/16 11:40 Dose: 40 mg Rivaroxaban (Xarelto) 15 mg PO DAILY [facility] PRN Reason: Protocol Thiamine HCl (Vitamin B1 Inj) 100 mg IM DAILY [facility] Results - Vital Signs Recent Vital Signs: Last Vital Signs Temp 98 F 12/09/16 12:00 Pulse 75 12/09/16 12:10 Resp 7 L 12/09/16 12:10 BP 153/83 H 12/09/16 12:00 Pulse Ox 99 12/09/16 12:10 - Labs Result Diagrams: 12/09/16 10:00 12/09/16 10:00 Labs: Laboratory Results - last 24 hr 12/09/16 12/09/16 12/09/16 00:44 00:50 03:30 WBC RBC Hgb Hct MCV MCH MCHC RDW Plt Count MPV Gran % Lymph % (Auto) [place] % (Auto) Eos % (Auto) Baso % (Auto) Gran # Lymph # [place] # Eos # Baso # PT INR APTT D-Dimer, Quantitative Sodium Potassium Chloride Carbon Dioxide Anion Gap BUN Creatinine Est GFR ( Amer) Est GFR (Non-Af Amer) POC Glucose (mg/dL) 398 H Random Glucose Hemoglobin A1c Calcium Total Bilirubin AST ALT Alkaline Phosphatase Total Creatine Kinase Troponin I 0.04 D Total Protein Albumin Globulin Albumin/Globulin Ratio Triglycerides Cholesterol LDL Cholesterol Direct HDL Cholesterol Free T4 TSH 3rd Generation Prolactin Urine Color Yellow Urine Appearance Clear Urine pH 6.5 Ur Specific [place] 1.010 Urine Protein 30 H Urine Glucose (UA) >=1000 Urine Ketones Negative Urine Blood Trace-lysed H Urine Nitrate Negative Urine Bilirubin Negative Urine Urobilinogen 1.0 H Ur Leukocyte Esterase Negative Urine RBC 0 - 2 Urine WBC 0 - 2 Ur Epithelial Cells 0 - 2 Urine Opiates Screen Urine Methadone Screen Ur Barbiturates Screen Ur Phencyclidine Scrn Ur Amphetamines Screen U Benzodiazepines Scrn U Oth Cocaine Metabols U Cannabinoids Screen 12/09/16 12/09/16 12/09/16 03:30 05:17 07:05 WBC RBC Hgb Hct MCV MCH MCHC RDW Plt Count MPV Gran % Lymph % (Auto) [place] % (Auto) Eos % (Auto) Baso % (Auto) Gran # Lymph # [place] # Eos # Baso # PT INR APTT D-Dimer, Quantitative Sodium Potassium Chloride Carbon Dioxide Anion Gap BUN Creatinine Est GFR ( Amer) Est GFR (Non-Af Amer) POC Glucose (mg/dL) 380 H Random Glucose Hemoglobin A1c 12.7 H Calcium Total Bilirubin AST ALT Alkaline Phosphatase Total Creatine Kinase Troponin I Total Protein Albumin Globulin Albumin/Globulin Ratio Triglycerides Cholesterol LDL Cholesterol Direct HDL Cholesterol Free T4 TSH 3rd Generation Prolactin Urine Color Urine Appearance Urine pH Ur Specific [place] Urine Protein Urine Glucose (UA) Urine Ketones Urine Blood Urine Nitrate Urine Bilirubin Urine Urobilinogen Ur Leukocyte Esterase Urine RBC Urine WBC Ur Epithelial Cells Urine Opiates Screen Negative Urine Methadone Screen Negative Ur Barbiturates Screen Negative Ur Phencyclidine Scrn Negative Ur Amphetamines Screen Negative U Benzodiazepines Scrn Positive H U Oth Cocaine Metabols Negative U Cannabinoids Screen Positive H 12/09/16 12/09/16 12/09/16 07:10 07:20 08:10 WBC RBC Hgb Hct MCV MCH MCHC RDW Plt Count MPV Gran % Lymph % (Auto) [place] % (Auto) Eos % (Auto) Baso % (Auto) Gran # Lymph # [place] # Eos # Baso # PT INR APTT D-Dimer, Quantitative Sodium Potassium Chloride Carbon Dioxide Anion Gap BUN Creatinine Est GFR ( Amer) Est GFR (Non-Af Amer) POC Glucose (mg/dL) 495 H* Random Glucose Hemoglobin A1c Calcium Total Bilirubin AST ALT Alkaline Phosphatase Total Creatine Kinase 49 Troponin I 0.04 Total Protein Albumin Globulin Albumin/Globulin Ratio Triglycerides 219 H Cholesterol 161 LDL Cholesterol Direct 104 HDL Cholesterol 30 Free T4 2.06 TSH 3rd Generation 2.61 Prolactin 19.3 H Urine Color Urine Appearance Urine pH Ur Specific [place] Urine Protein Urine Glucose (UA) Urine Ketones Urine Blood Urine Nitrate Urine Bilirubin Urine Urobilinogen Ur Leukocyte Esterase Urine RBC Urine WBC Ur Epithelial Cells Urine Opiates Screen Urine Methadone Screen Ur Barbiturates Screen Ur Phencyclidine Scrn Ur Amphetamines Screen U Benzodiazepines Scrn U Oth Cocaine Metabols U Cannabinoids Screen 12/09/16 12/09/16 12/09/16 08:10 09:02 10:00 WBC 9.0 RBC 4.90 Hgb 15.2 Hct 43.5 MCV 88.8 MCH 31.0 MCHC 34.9 RDW 13.9 Plt Count 191 MPV 11.9 H Gran % 82.3 H Lymph % (Auto) 11.2 L [place] % (Auto) 5.6 Eos % (Auto) 0.7 L Baso % (Auto) 0.2 Gran # 7.43 H Lymph # 1.0 L [place] # 0.5 Eos # 0.1 Baso # 0.02 PT 11.4 INR 1.06 APTT 22.3 L D-Dimer, Quantitative 1.30 H Sodium Potassium Chloride Carbon Dioxide Anion Gap BUN Creatinine Est GFR ( Amer) Est GFR (Non-Af Amer) POC Glucose (mg/dL) 483 H* Random Glucose Hemoglobin A1c Calcium Total Bilirubin AST ALT Alkaline Phosphatase Total Creatine Kinase Troponin I Total Protein Albumin Globulin Albumin/Globulin Ratio Triglycerides Cholesterol LDL Cholesterol Direct HDL Cholesterol Free T4 TSH 3rd Generation Prolactin Urine Color Urine Appearance Urine pH Ur Specific [place] Urine Protein Urine Glucose (UA) Urine Ketones Urine Blood Urine Nitrate Urine Bilirubin Urine Urobilinogen Ur Leukocyte Esterase Urine RBC Urine WBC Ur Epithelial Cells Urine Opiates Screen Urine Methadone Screen Ur Barbiturates Screen Ur Phencyclidine Scrn Ur Amphetamines Screen U Benzodiazepines Scrn U Oth Cocaine Metabols U Cannabinoids Screen 12/09/16 10:00 WBC RBC Hgb Hct MCV MCH MCHC RDW Plt Count MPV Gran % Lymph % (Auto) [place] % (Auto) Eos % (Auto) Baso % (Auto) Gran # Lymph # [place] # Eos # Baso # PT INR APTT D-Dimer, Quantitative Sodium 139 Potassium 3.4 L Chloride 99 Carbon Dioxide 18 L Anion Gap 25 H BUN 11 Creatinine 1.0 Est GFR ( Amer) > 60 Est GFR (Non-Af Amer) > 60 POC Glucose (mg/dL) Random Glucose 460 H* Hemoglobin A1c Calcium 9.2 Total Bilirubin 1.0 AST 29 ALT 15 Alkaline Phosphatase 111 Total Creatine Kinase Troponin I Total Protein 6.5 Albumin 3.8 Globulin 2.7 Albumin/Globulin Ratio 1.4 Triglycerides Cholesterol LDL Cholesterol Direct HDL Cholesterol Free T4 TSH 3rd Generation Prolactin Urine Color Urine Appearance Urine pH Ur Specific [place] Urine Protein Urine Glucose (UA) Urine Ketones Urine Blood Urine Nitrate Urine Bilirubin Urine Urobilinogen Ur Leukocyte Esterase Urine RBC Urine WBC Ur Epithelial Cells Urine Opiates Screen Urine Methadone Screen Ur Barbiturates Screen Ur Phencyclidine Scrn Ur Amphetamines Screen U Benzodiazepines Scrn U Oth Cocaine Metabols U Cannabinoids Screen Assessment & Plan - Assessment and Plan (Free Text) Plan: SEIZURE LIKE ACTIVITY SECONDARY FROM UNDERLYING LEFT FRONTAL CYSTIC ENCEPHALOMALCIA PROVOKED BY HYPERGYCLEMIA LOWERING THE SEIZURE THRESHOLD. -RECOMMEND: KEPPRA 500MG PO BID FOR SZ PROPHYLAXIS, KEEP BLOOD SUGARS BTW 140- 180 AND AVOID HYPERGLYCEMIC ACCELERATIONS. -MRI BRAIN TO ASSESS FOR ANY ACUTE INTRACRANIAL PATHOLOGY. EEG TO ASSES BRAIN WAVE ACTIVITY, THANK YOU. ED [facility]ATTS. NEUROLOGY.
[2016-12-09] MEDS: levETIRAcetam 500mg IVPB 500 MG/100 ML BAG IV SCH ×2 (15:00→21:44)
--- NOTE | 2016-12-09 15:11 | CARD ---
APPROVED REPORT EXAM: Two-dimensional and M-mode echocardiogram with Doppler and color Doppler. INDICATION Atrial Fibrillation 2D DIMENSIONS Left Atrium (2D)4.9 (1.6-4.0cm)IVSd1.2 (0.7-1.1cm) LVDd5.6 (3.9-5.9cm)PWd1.1 (0.7-1.1cm) LVDs4.7 (2.5-4.0cm)FS (%) 15.1 % LVEF (%)31.6 (>50%) M-Mode DIMENSIONS Aortic Root3.70 (2.2-3.7cm)Aortic Cusp Exc.1.80 (1.5-2.0cm) Aortic Valve AoV Peak Lflzwcsx002.0cm/Donovan Peak GR.11mmHg Mitral Valve E/A ratio0.0 TDI E/Lateral E'0.0E/Medial E'0.0 Pulmonary Valve PV Peak Yrsuongm54.1cm/sPV Peak Grad.2mmHg Tricuspid Valve TR Peak [id number] [id number] Peak Gr.34mmHg [id number] LEFT VENTRICLE The left ventricle is normal size. There is borderline concentric left ventricular hypertrophy. The systolic function is severely impaired. Paradoxic septum No left ventricle thrombus noted on this study. RIGHT VENTRICLE The right ventricle is normal size. There is normal right ventricular wall thickness. Systolic function is moderately reduced. ATRIA The left atrium is moderately dilated. The right atrium is moderately dilated. AORTIC VALVE The aortic valve is severely sclerotic. MITRAL VALVE The mitral valve is mildly thickened. Mitral regurgitation is moderate. TRICUSPID VALVE There is mild pulmonary hypertension. GREAT VESSELS The aortic root displays moderate sclerocalcific changes of the aortic root. The IVC was not visualized. PERICARDIAL EFFUSION There is a trace circumferential pericardial effusion. <Conclusion> The left ventricle is normal size. There is borderline concentric left ventricular hypertrophy. The systolic function is severely impaired. Paradoxic septum No left ventricle thrombus noted on this study. Mitral regurgitation is moderate. There is mild pulmonary hypertension.
--- NOTE | 2016-12-09 15:36 | CARD ---
APPROVED REPORT EKG Measurement Heart [id number] [id number] <Conclusion> Atrial flutter with 2:[address] & T wave abnormality, consider inferolateral ischemia Abnormal ECG
[2016-12-09] MEDS: Thiamine 100 mg/ml Inj IM SCH (15:40)
--- NOTE | 2016-12-09 18:01 | US ---
HISTORY: Hx of Hepatitis COMPARISON: None available. TECHNIQUE: Sonographic evaluation of the abdomen. FINDINGS: Examination markedly limited due to patient motion. LIVER: Measures 14.9 x 12.5 x 16.1 cm. Echogenic liver may be seen in setting of hepatic parenchymal disease or fatty infiltration. No focal hepatic mass identified. The main portal vein appears patent with normal directional flow. No intrahepatic bile duct dilatation. GALLBLADDER: No gallstones. No gallbladder wall thickening. Negative sonographic Ramirez's sign as assessed by the milling operator. COMMON BILE DUCT: Measures 3 mm. PANCREAS: Not well visualized. RIGHT KIDNEY: Measures 11.8 x 6.0 x 6.2cm. No obstructing calculus or hydronephrosis identified. 2.3 x 2.3 x 2.2 cm upper pole renal cyst. 2.2 x 2.3 x 2.1 cm midpole renal cyst. LEFT KIDNEY: Measures 13.0 x 7.3 x 5.4 cm. No obstructing calculus or hydronephrosis identified. 3.5 x 3.0 x 3.4 cm mid to lower pole left renal cyst. SPLEEN: Measures approximately 13.0 cm. AORTA: Limited views appear unremarkable. IVC: Not visualized. OTHER FINDINGS: None. IMPRESSION: Examination limited by patient motion. Echogenic liver may be seen in setting of hepatic parenchymal disease or fatty infiltration. Bilateral renal cysts. Borderline splenomegaly.
[2016-12-09] MEDS ORDERED: Labetalol 5 mg/ml Inj 20ML IV ONE (18:23)
[2016-12-09] MEDS: Enoxaparin 100 mg Syringe SC SCH (18:24)
[2016-12-09 19:09] LABS: BLOOD UREA NITROGEN 14 mg/dL (7-21); CALCIUM 9.1 mg/dL (8.4-10.5); CARBON DIOXIDE 23 mmol/L (21-33); CHLORIDE 107 mmol/L (95-110); GFR AFRICAN-AMERICAN > 60; GLUCOSE,RANDOM 250 mg/dL (70-110); POTASSIUM 3.7 mmol/L (3.6-5.0); SODIUM 142 mmol/L (132-148)
--- NOTE | 2016-12-09 20:48 | US ---
HISTORY: Leg pain and swelling. Evaluate for DVT PHYSICIAN(S): Ruddy Webb MD. TECHNIQUE: Duplex sonography and color-flow Doppler with graded compression were used to evaluate the deep venous systems of both lower extremities. FINDINGS: The visualized deep venous systems of both lower extremities are sonographically normal and compressible. Normal wave forms and augmentation are seen. There is no sonographic evidence for deep venous thrombosis in the visualized segments of both lower extremities. IMPRESSION: No sonographic evidence for deep venous thrombosis in the visualized segments of both lower extremities.
[2016-12-09 22:49] LABS: BLOOD UREA NITROGEN 14 mg/dL (7-21); CARBON DIOXIDE 24 mmol/L (21-33); GFR AFRICAN-AMERICAN > 60; GLUCOSE,RANDOM 201 mg/dL (70-110)
[2016-12-09 22:50] LABS: CHLORIDE 106 mmol/L (98-107); POTASSIUM 3.8 mmol/L (3.6-5.0); SODIUM 142 mmol/L (132-148)
[2016-12-10] MEDS ORDERED: Labetalol 5 mg/ml Inj 20ML IV SCH
--- NOTE | 2016-12-10 00:06 | CON ---
DATE: 12/09/2016 CARDIOLOGY CONSULTATION HISTORY: The patient is a 66-year-old male who presents with weakness. He was found to have multiple seizures including the last one during diagnostic testing in radiology. The patient's past medical history is documented to have atrial fibrillation in the past. He had marked bleeding on Coumadin and has been unable to take any anticoagulants. In addition, the patient suffers from diabetes which has been out of control. In addition, the patient has had reported a history of cardiac surgery in the past, likely coronary bypass surgery. His catheterization done in 2013, reveals a dilated cardiomyopathy in the past. Currently, the patient is lethargic, either been postictal versus benzodiazepine therapy for his seizures. PHYSICAL EXAMINATION: GENERAL: The patient is lethargic, unable to give a good history. VITAL SIGNS: Blood pressure is 153/83, heart rate in the 70s, atrial fibrillation. NECK: Negative JVD. LUNGS: Without rales. HEART: S1, S2. EXTREMITIES: Without edema. EKG shows atrial fibrillation with nonspecific ST-T changes. LABORATORY: The hemoglobin is 15.2. Chemistries: Glucose is 460 with a troponin of 0.04. IMPRESSION: 1. Seizures. 2. Dilated cardiomyopathy. 3. Chronic atrial fibrillation. 4. Coronary artery disease. 5. Diabetes mellitus. 6. Questionable history of cerebrovascular accident. 7. History of coronary bypass surgery. PLAN: Given these findings, the patient is currently on anti seizure medications. We will obtain an echocardiogram to evaluate his LV function. Ruddy Escoto MD
[2016-12-10 02:21] LABS: BLOOD UREA NITROGEN 14 mg/dL (7-21); CALCIUM 9.2 mg/dL (8.4-10.5); CARBON DIOXIDE 25 mmol/L (21-33); CHLORIDE 108 mmol/L (98-107); GFR AFRICAN-AMERICAN > 60; GLUCOSE,RANDOM 161 mg/dL (70-110); POTASSIUM 3.3 mmol/L (3.6-5.0); SODIUM 143 mmol/L (132-148)
[2016-12-10 06:40] LABS: ALB/GLOB RATIO 1.2 (1.1-1.8); ALKALINE PHOSPHATASE 108 U/L (38-133); ALT/SGPT 21 U/L (7-56); AST/SGOT 30 U/L (15-59); BILIRUBIN,TOTAL 0.9 mg/dL (0.2-1.3); BLOOD UREA NITROGEN 14 mg/dL (7-21); CALCIUM 9.2 mg/dL (8.4-10.5); CARBON DIOXIDE 25 mmol/L (21-33); CHLORIDE 108 mmol/L (95-110); GFR AFRICAN-AMERICAN > 60; GLUCOSE,RANDOM 157 mg/dL (70-110); MAGNESIUM 2.1 mg/dL (1.7-2.2); PHOSPHOROUS 3.5 mg/dL (2.5-4.5); POTASSIUM 3.1 mmol/L (3.6-5.0); SODIUM 143 mmol/L (132-148); TOTAL PROTEIN 6.4 g/dL (5.8-8.3)
[2016-12-10 06:48] LABS: INR 1.03 (0.93-1.08)
[2016-12-10 06:50] LABS: BASO # 0.01 K/mm3 (0.0-2.0); BASO % 0.1 % (0.0-3.0); EOS # 0.2 (0.0-0.7); EOS % 2.2 % (1.5-5.0); GRAN # 5.54 (1.4-6.5); GRAN % 71.9 % (50.0-68.0); LYMPH # 1.4 (1.2-3.4); LYMPH % 18.1 % (22.0-35.0); MEAN CELL VOLUME 88.5 fl (80.0-105.0); MEAN CORPUSCULAR HEMOGLOBIN 30.7 pg (25.0-35.0); MEAN CORPUSCULAR HGB CONC 34.7 g/dl (31.0-37.0); MEAN PLATELET VOLUME 11.1 fl (7.0-11.0); MONO # 0.6 (0.1-0.6); MONO % 7.7 % (1.0-6.0); RED CELL DISTRIBUTION WIDTH 14.1 % (11.5-14.5); WHITE BLOOD COUNT 7.7 10^3/ul (4.5-11.0)
[2016-12-10] MEDS: Insulin Reg-HIGH-Coverage SC SCH ×4 (07:37→22:30)
[2016-12-10] MEDS: levETIRAcetam 500mg IVPB 500 MG/100 ML BAG IV SCH ×2 (09:42→21:35)
[2016-12-10] MEDS: Thiamine 100 mg/ml Inj IM SCH (09:43)
[2016-12-10] MEDS: Insulin Detemir 100 units/ml Vial (Levemir) SC SCH ×2 (09:55→22:30)
--- NOTE | 2016-12-10 14:03 | PN ---
DATE: 12/10/2016 ADDENDUM The echocardiogram reveals an ejection fraction of 31% with mild pulmonary hypertension. Given the echo findings, history of coronary disease and atrial fibrillation, the patient should be anticoagulated once his seizure activity is understood and well-controlled. Ruddy Escoto MD
--- NOTE | 2016-12-10 15:41 | EEG ---
DATE: 12/10/2016 CONDITION OF THE RECORDING: Drowsy EEG. DIAGNOSIS: Evaluation for seizures. MEDICATIONS: Reviewed by nurse per reconciliation sheet. INTERPRETATION: This is a 16-channel international recording. The background activity was composed of 6 to 7 cycles per second. There was a small amount of beta activity 16 to 20 cycles per second seen in this recording. There was increased amount of theta activity 5 to 7 cycles per second seen in this tracing. There was sweat artifact and EMG artifact through the recording. Drowsiness was characterized by mixed beta and theta activities and sleep was characterized by vertex transient, sleep spindle, bilateral slowing. Photic stimulation showed no change in the tracing. No paroxysmal activity and no evidence of recording. CONCLUSION: This is an abnormal EEG due to presence of mild diffuse slowing consistent with mild bilateral cerebral dysfunction. No evidence of any epileptiform activity. Please clinically correlate. Chapin Love MD
--- NOTE | 2016-12-10 16:00 | CP.PCM.PN ---
<TJ FOSTER - Last Filed: 12/10/16 15:56> Subjective - Date & Time of Evaluation Date of Evaluation: 12/10/16 Time of Evaluation: 07:30 - Subjective Subjective: Tj Foster DO PGY1 - ICU Progress Note Patient seen and examined at bedside. Nurse reports one seizure, lasting 3 seconds, last night at 8PM. Patient was - this AM - still on an insulin drip with Q1 accuchecks for hyperglycemia. He is awake, alert, and oriented x3, he denies confusion, CASTRO, dizziness, CP, SOB, cough, wheeze, abdominal pain, fever, chills, N/V/D/C. Objective - Vital Signs/Intake and Output Vital Signs (last 24 hours): Temp Pulse Resp BP Pulse Ox 98.2 F 76 17 147/90 100 12/10/16 12:00 12/10/16 13:00 12/10/16 13:00 12/10/16 13:00 12/10/16 13:00 Intake and Output: 12/10/16 12/10/16 06:59 18:59 Intake Total 140 10 Output Total 200 Balance -60 10 - Medications Medications: Current Medications Aspirin (Aspirin Chewable) 81 mg PO DAILY [facility] Last Admin: 12/10/16 09:42 Dose: 81 mg Atorvastatin Calcium (Lipitor) 40 mg PO DIN [facility] Last Admin: 12/09/16 17:07 Dose: Not Given Enoxaparin Sodium (Lovenox) 100 mg SC Q12H [facility] PRN Reason: Protocol Last Admin: 12/09/16 18:24 Dose: 100 mg Gabapentin (Neurontin) 300 mg PO TID CM PRN Reason: Protocol Last Admin: 12/10/16 13:40 Dose: Not Given Levetiracetam (Keppra 500mg Ivpb) 500 mg in 100 mls @ 460 mls/hr IV Q12 [facility] Last Admin: 12/10/16 09:42 Dose: 460 mls/hr Insulin Detemir (Levemir) 20 unit SC Q12 [facility] Last Admin: 12/10/16 09:55 Dose: 20 unit Insulin Human Regular (Humulin R High) 0 units SC ACHS CM PRN Reason: Protocol Last Admin: 12/10/16 11:36 Dose: Not Given Levetiracetam (Keppra) 500 mg PO BID [facility] Last Admin: 12/09/16 11:37 Dose: Not Given Lorazepam (Ativan) 2 mg IVP Q2 PRN; Protocol PRN Reason: Seizure activity Metoprolol Tartrate (Lopressor) 5 mg IVP Q6H PRN PRN Reason: Systolic Blood Pressure Last Admin: 12/09/16 16:57 Dose: 5 mg Metoprolol Tartrate (Lopressor) 25 mg PO BID [facility] Last Admin: 12/10/16 09:42 Dose: 25 mg Pantoprazole Sodium (Protonix Ec Tab) 40 mg PO 0600 [facility] Rivaroxaban (Xarelto) 15 mg PO DAILY [facility] PRN Reason: Protocol Last Admin: 12/09/16 11:37 Dose: Not Given Thiamine HCl (Vitamin B1 Inj) 100 mg IM DAILY [facility] Last Admin: 12/10/16 09:43 Dose: 100 mg - Labs Labs: 12/10/16 06:00 12/10/16 06:00 PT 11.1 Seconds (9.9-11.8) 12/10/16 06:00 INR 1.03 (0.93-1.08) 12/10/16 06:00 APTT 22.3 Seconds (23.7-30.8) L 12/09/16 08:10 - Constitutional Appears: Non-toxic, No Acute Distress - Head Exam Head Exam: ATRAUMATIC, NORMOCEPHALIC - Eye Exam Eye Exam: EOMI Additional comments: History of blindness in left eye - ENT Exam ENT Exam: Mucous Membranes Moist - Neck Exam Neck Exam: Normal Inspection. absent: Lymphadenopathy, Thyromegaly - Respiratory Exam Respiratory Exam: Clear to Ausculation Bilateral. absent: Rales, Rhonchi - Cardiovascular Exam Cardiovascular Exam: RRR, +S1, +S2 - GI/Abdominal Exam GI & Abdominal Exam: Soft. 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 - Psychiatric Exam Psychiatric exam: Normal Affect, Normal Mood - Skin Skin Exam: Dry, Intact Assessment and Plan - Assessment and Plan (Free Text) Assessment: 66yo M with seizure-like activity 2/2 history of left front cystic encephalomalacia in the setting of hyperglycemia and uncontrolled HTN. No seizures overnight, will likely transfer if no seizure activity throughout the day. Plan: Neuro: - Several witnessed seizures, lasting 3 seconds to 2 minutes, breaking spontaneously, last seizure was yesterday night at 8 PM - On keppra 500mg BID, has had multiple breakthrough seizures - PRN ativan for breakthrough seizures - Head CT shows no acute changes - EEG completed yesterday, read as significant for diffuse slowing, with no epileptiform activity - Neuro (Kate) consulted, all recs appreciated - Maintain blood sugar 140-180 and SBP 130-150 - MRI brain ordered, but questionable shrapnel in leg, will obtain XR of leg prior to MRI CV: - Hemodynamically stable, RRR, no tachy or bradycardia - H/o CAD s/p CABG, Afib, DVT, HTN - On ASA, Lipitor, Lovenox - On Lopressor BID and PRN to keep SBP 130-150 Pulm: - Lungs CTA B/L - Maintain O2 sat>90% GI: - Passed swallow eval last night, tolerating PO - Start heart healthy, carb consistent diet - Pepcid for Ppx Endo: - History of DM, with dehydration and AG acidosis in the setting of hyperglycemia, though no ketonuria - Anion gap is closed today, and glucose has remained <250 overnight. Will stop insulin drip and start basal insulin with SSI coverage, accucheck ACHS. - Acidosis may be lactic acidosis from seizures - Maintain euglycemia Renal: - Monitor and replete lytes as needed - Maintain euvolemia Hem/Onc: - H/H stable - Continue to monitor ID: - Afebrile, no leukocytosis - BCx show no growth after 24 hrs - Continue to monitor Ppx: Pepcid for GI and Lovenox for DVT Patient seen, discussed, and reviewed with attending <Pat Cyr MD H - Last Filed: 12/10/16 17:17> Objective - Vital Signs/Intake and Output Vital Signs (last 24 hours): Temp Pulse Resp BP Pulse Ox 98.2 F 77 22 160/110 H 94 L 12/10/16 12:00 12/10/16 17:08 12/10/16 16:00 12/10/16 17:08 12/10/16 16:00 Intake and Output: 12/10/16 12/10/16 06:59 18:59 Intake Total 140 10 Output Total 200 Balance -60 10 - Medications Medications: Current Medications Aspirin (Aspirin Chewable) 81 mg PO DAILY [facility] Last Admin: 12/10/16 09:42 Dose: 81 mg Atorvastatin Calcium (Lipitor) 40 mg PO DIN [facility] Last Admin: 12/10/16 17:08 Dose: 40 mg Enoxaparin Sodium (Lovenox) 100 mg SC Q12H [facility] PRN Reason: Protocol Last Admin: 12/10/16 17:08 Dose: 100 mg Gabapentin (Neurontin) 300 mg PO TID [facility] PRN Reason: Protocol Last Admin: 12/10/16 17:09 Dose: 300 mg Levetiracetam (Keppra 500mg Ivpb) 500 mg in 100 mls @ 460 mls/hr IV Q12 [facility] Last Admin: 12/10/16 09:42 Dose: 460 mls/hr Insulin Detemir (Levemir) 20 unit SC Q12 [facility] Last Admin: 12/10/16 09:55 Dose: 20 unit Insulin Human Regular (Humulin R High) 0 units SC ACHS [facility] PRN Reason: Protocol Last Admin: 12/10/16 17:08 Dose: 4 units Levetiracetam (Keppra) 500 mg PO BID [facility] Last Admin: 12/09/16 11:37 Dose: Not Given Lorazepam (Ativan) 2 mg IVP Q2 PRN; Protocol PRN Reason: Seizure activity Metoprolol Tartrate (Lopressor) 5 mg IVP Q6H PRN PRN Reason: Systolic Blood Pressure Last Admin: 12/09/16 16:57 Dose: 5 mg Metoprolol Tartrate (Lopressor) 25 mg PO BID [facility] Last Admin: 12/10/16 17:08 Dose: 25 mg Pantoprazole Sodium (Protonix Ec Tab) 40 mg PO 0600 [facility] Rivaroxaban (Xarelto) 15 mg PO DAILY [facility] PRN Reason: Protocol Last Admin: 12/09/16 11:37 Dose: Not Given Thiamine HCl (Vitamin B1 Inj) 100 mg IM DAILY [facility] Last Admin: 12/10/16 09:43 Dose: 100 mg - Labs Labs: 12/10/16 06:00 12/10/16 06:00 PT 11.1 Seconds (9.9-11.8) 12/10/16 06:00 INR 1.03 (0.93-1.08) 12/10/16 06:00 APTT 22.3 Seconds (23.7-30.8) L 12/09/16 08:10 Attending/Attestation - Attestation I have personally seen and examined this patient.: Yes I have fully participated in the care of the patient.: Yes I have reviewed all pertinent clinical information, including history, physical exam and plan: Yes Notes (Text): 12/10/16 17:15 66 y/o M w/ multiple generalized seizures. 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 Loaded and continued on Keppra and MRi pending. EEg shows slowing. No signs of Status. Neurology following. No signs of infection or other causes. dvt P cc time 45 min
[2016-12-10] MEDS: Enoxaparin 100 mg Syringe SC SCH (17:08)
--- NOTE | 2016-12-10 19:35 | CARD ---
APPROVED REPORT EKG Measurement Heart [id number] IL P226 [id number] <Conclusion> Atrial flutter with variable AV block Marked ST abnormality, possible inferior subendocardial injury Abnormal ECG
--- NOTE | 2016-12-10 21:38 | CP.PCM.PN ---
Subjective - Date & Time of Evaluation Date of Evaluation: 12/10/16 Time of Evaluation: 07:20 - Subjective Subjective: Pt s/e bedside. Patient is laying comfortably in bed, he is more alert and oriented than yesterday. Patient is not slurring speech. He remembers the events from yesterday and is able to give a better history. Patient states that he has never seized before and denies any history of alcohol abuse. He does state that he has had stress at home due to his daughter and son giving him trouble. Patient further states that he has not taken his xanax for 3 - 4 days. Pt denies any palpitations, chest pain, sob. He further denies f/ch/n/v/d. He denies muscle aches or any urinary complaints. No further complaints at this time. Objective - Vital Signs/Intake and Output Vital Signs (last 24 hours): Temp Pulse Resp BP Pulse Ox 98.2 F 84 20 163/106 H 99 12/10/16 18:00 12/10/16 18:00 12/10/16 18:00 12/10/16 18:00 12/10/16 18:00 Intake and Output: 12/10/16 12/11/16 18:59 06:59 Intake Total 1038 Output Total 400 Balance 638 - Medications Medications: Current Medications Aspirin (Aspirin Chewable) 81 mg PO DAILY [facility] Last Admin: 12/10/16 09:42 Dose: 81 mg Atorvastatin Calcium (Lipitor) 40 mg PO DIN [facility] Last Admin: 12/10/16 17:08 Dose: 40 mg Enoxaparin Sodium (Lovenox) 100 mg SC Q12H [facility] PRN Reason: Protocol Last Admin: 12/10/16 17:08 Dose: 100 mg Gabapentin (Neurontin) 300 mg PO TID [facility] PRN Reason: Protocol Last Admin: 12/10/16 17:09 Dose: 300 mg Levetiracetam (Keppra 500mg Ivpb) 500 mg in 100 mls @ 460 mls/hr IV Q12 [facility] Last Admin: 12/10/16 09:42 Dose: 460 mls/hr Insulin Detemir (Levemir) 20 unit SC Q12 [facility] Last Admin: 12/10/16 09:55 Dose: 20 unit Insulin Human Regular (Humulin R High) 0 units SC ACHS CM PRN Reason: Protocol Last Admin: 12/10/16 17:08 Dose: 4 units Levetiracetam (Keppra) 500 mg PO BID [facility] Last Admin: 12/09/16 11:37 Dose: Not Given Lorazepam (Ativan) 2 mg IVP Q2 PRN; Protocol PRN Reason: Seizure activity Last Admin: 12/10/16 21:00 Dose: 2 mg Metoprolol Tartrate (Lopressor) 5 mg IVP Q6H PRN PRN Reason: Systolic Blood Pressure Last Admin: 12/09/16 16:57 Dose: 5 mg Metoprolol Tartrate (Lopressor) 25 mg PO BID [facility] Last Admin: 12/10/16 17:08 Dose: 25 mg Pantoprazole Sodium (Protonix Ec Tab) 40 mg PO 0600 [facility] Rivaroxaban (Xarelto) 15 mg PO DAILY [facility] PRN Reason: Protocol Last Admin: 12/09/16 11:37 Dose: Not Given Thiamine HCl (Vitamin B1 Inj) 100 mg IM DAILY [facility] Last Admin: 12/10/16 09:43 Dose: 100 mg - Labs Labs: 12/10/16 06:00 12/10/16 06:00 PT 11.1 Seconds (9.9-11.8) 12/10/16 06:00 INR 1.03 (0.93-1.08) 12/10/16 06:00 APTT 22.3 Seconds (23.7-30.8) L 12/09/16 08:10 - Additional Findings Additional findings: VS as below Constitutional: a&o x 4, nad Head and Neck: neck supple, no jvd, trachea midline, carotid midline, no cervical/head mass Eyes: rosenda, nonicteric sclera, eom intact ENT: auditory acuity grossly intact, throat not congested, no nasal deformity Cardio: Arrhythmia; regular rate, no m/r/g, no carotid bruit, nml s1, s2 Pulm: no accessory muscle use, equal nml breath sounds bilaterally, ctab Abd: s/nt/nd, nbs x 4 q, no palpable masses Derm: no rashes, no ulcers, no lesions Extr: no edema, no cyanosis, no calf tenderness, no lesions, no varicosities Neuro: cn II-XII grossly intact, ue and le 5/5 muscle strength bilaterally, no los ue, le bilaterally and core Assessment and Plan - Assessment and Plan (Free Text) Assessment: 66 year old male with pmh sig for CAD, CABG in 2010, Afib, hx of DVT, and DM who presents to ED complaining of 3 day history of weakness and bilateral hand and face tremor/twitching episodes. Patient is noted to be euvolemic with minimal hypokalemia and elevated bg of 400 plus. When patient brought up to the floor, a rapid response was called on him 2/2 seizure activity. Patient was stabilized and is currently in the ICU. Plan: 1. Seizure activity - Patient had at least 3 witnessed seizures - Neuro c/s: neuroencephalomalacia in addition to hyperglycemia could contribute to seizure activity. - Patient also had benzos on his UDS, which he abruptly stopped taking - this could contribute to seizure activity - Ativan 2 q4 - Patient in ICU 2. Generalized weakness - Generalized weakness for past 3 days, afebrile on admission - K 3.4, bg 441, other electrolytes normal, replace potassium, continue to monitor - TSH normal - Urine drug screen: positive for benzos - Sputum clx, blood clx, UA, clx - Neurovascularly intact, Head CT showing nonspecific white matter changes, acute infarction may be CT occult within first 24 hours. If a focal deficit persists consider follow up CT or MRI for further evaluation - Neuro checks Q4H 3. Hx of Atrial fibrillation - EKG in ED showing Atrial Flutter at 98 bpm, non-specific ST/T wave changes - rate control with Lopressor - Heparin and ASA - Continue to monitor 4. Hx of CAD - Lipid panel - Trending troponins - Statin - heart healthy diet 5. DM2 - HgA1c - ACHS - ISS-high 6. GI/DVT ppx - Protonix - Heparin SC
--- NOTE | 2016-12-10 21:45 | RAD ---
EXAM: XR Left Femur, 2 Views CLINICAL HISTORY: The patient age is 66 years old and is male; Screening exam; R/O shrapnel; Additional info: R/O [facility] exam id and description: Rad [id number] femur 1 view bilat TECHNIQUE: Frontal and lateral views of the left femur. COMPARISON: No relevant prior studies available. FINDINGS: Bones/joints: There is no acute fracture or dislocation of the left femur. Calcification is visualized within the lateral compartment of the knee, consistent with chondrocalcinosis. Osteopenia. There is narrowing of the medial compartment of the knee, consistent with degenerative change/arthropathy. Soft tissues: No radiopaqueforeign body is identified. A few kim are identified medial to the left knee. Vasculature: Atherosclerotic calcification is visualized. IMPRESSION: 1. There is no acute fracture or dislocation of the left femur. 2. No radiopaque foreign body is identified. 3. Calcification is visualized within the lateral compartment of the knee, consistent with chondrocalcinosis. 4. There is narrowing of the medial compartment of the knee, consistent with degenerative change/arthropathy. EXAM: XR Right Femur, 2 Views EXAM DATE/TIME: 12/10/2016 3:24 PM CLINICAL HISTORY: The patient age is 66 years old and is male; Screening exam; R/O shrapnel; Additional info: R/O [facility] exam id and description: Rad [id number] femur 1 view bilat TECHNIQUE: Frontal and lateral views of the right femur. COMPARISON: No relevant prior studies available. FINDINGS: Bones/joints: There is no acute fracture or dislocation of the right femur. Calcification is visualized within the medial and lateral compartments of the knee, consistent with chondrocalcinosis. Osteopenia. Soft tissues: No radiopaqueforeign body is identified. Vasculature: Atherosclerotic calcification is visualized. IMPRESSION: 1. There is no acute fracture or dislocation of the right femur. 2. No radiopaque foreign body is identified. 3. Calcification is visualized within the medial and lateral compartments of the knee, consistent with chondrocalcinosis.
--- NOTE | 2016-12-10 21:50 | PN ---
DATE: 12/10/2016 SUBJECTIVE: There have been no seizure activities since last night. PHYSICAL EXAMINATION: VITAL SIGNS: Blood pressure is 170/100, heart rate is 100. NECK: Negative JVD. LUNGS: Without rales. HEART: S1, S2. EXTREMITIES: Without edema. LABORATORY DATA: The glucose is 157. IMPRESSION: 1. Seizure disorder. 2. Dilated cardiomyopathy. 3. Chronic atrial fibrillation. 4. Diabetes mellitus. 5. History of coronary bypass surgery. PLAN: Given these findings, still awaiting echocardiogram, which should be done today. Ruddy Escoto MD
--- NOTE | 2016-12-10 21:53 | RAD ---
EXAM: XR Left Tibia and Fibula, 2 Views CLINICAL HISTORY: The patient age is 66 years old and is male; Screening exam; R/O shrapnel; Additional info: R/O [facility] exam id and description: Rad tibfib tibia fibula bi TECHNIQUE: Frontal and lateral views of the left tibia and fibula. COMPARISON: No relevant prior studies available. FINDINGS: Bones/joints: There is limited evaluation of the medial and lateral malleoli. Otherwise, there is no acute fracture or dislocation of the left tibia or fibula. Osteopenia. A calcaneal spur is identified. Chondrocalcinosis of the knee is visualized. Soft tissues: Multiple kim are identified within the soft tissues of the medial left lower extremity. Otherwise, no radiopaque foreign body is visualized. Vasculature: Atherosclerotic calcification is visualized. IMPRESSION: 1. Multiple kim are identified within the soft tissues of the medial left lower extremity. Otherwise, no radiopaque foreign body is visualized. 2. There is limited evaluation of the medial and lateral malleoli. Otherwise, there is no acute fracture or dislocation of the left tibia or fibula. 3. Additional findings described above. EXAM: XR Right Tibia and Fibula, 2 Views EXAM DATE/TIME: 12/10/2016 3:24 PM CLINICAL HISTORY: The patient age is 66 years old and is male; Screening exam; R/O shrapnel; Additional info: R/O [facility] exam id and description: Rad tibfib tibia fibula bi TECHNIQUE: Frontal and lateral views of the right tibia and fibula. COMPARISON: No relevant prior studies available. FINDINGS: Bones/joints: Degenerative spurring is identified within the lateral compartment of the knee. Chondrocalcinosis is seen bilaterally. There is no acute fracture or dislocation of the right tibia or fibula. Osteopenia. A calcaneal spur is identified. Soft tissues: No radiopaque foreign body. Other findings: There is calcification in the region of the heel pad. IMPRESSION: 1. Degenerative spurring is identified within the lateral compartment of the knee. Chondrocalcinosis is seen bilaterally. 2. There is no acute fracture or dislocation of the right tibia or fibula. 3. No radiopaque foreign body.
--- NOTE | 2016-12-11 00:05 | MRI ---
EXAM: MR Head Without Intravenous Contrast EXAM DATE/TIME: 12/10/2016 5:00 AM CLINICAL HISTORY: The patient age is 66 years old and is male; Signs and symptoms; Other: Seizure; Additional info: Code stroke Facility exam id and description: Mri br s brain without contrast TECHNIQUE: Magnetic resonance images of the head/brain without intravenous contrast in multiple planes. COMPARISON: CT - HEAD W/O (CODE STROKE) 12/09/2016 7:47:51 AM FINDINGS: Brain: There are a few bands of restricted diffusion within the right posterior frontal lobe, with an additional small focus of restricted diffusion in the left posterior frontal white matter. These findings are consistent with acute infarcts. There is magnetic susceptibility in the region of the right frontal lobe infarct, consistent with a component of hemorrhage. T2 hyperintense encephalomalacia with a surrounding zone of FLAIR hyperintense gliosis is visualized within the left frontal lobe, consistent with an old infarct. A small area of gliosis is also seen within the right parietal cortex. There are scattered additional foci of high FLAIR signal intensity within the cerebral white matter and carlos. There is no mass effect or restricted diffusion associated with these foci. In a patient this age, this likely represents chronic small vessel ischemic disease. There is prominence of the ventricles and sulci, compatible with atrophy. Ventricles: See above. Bones/joints: No acute abnormality. Sinuses: Unremarkable as visualized. No acute sinusitis. Mastoid air cells: Mild mucosal thickening is visualized within the left mastoid air cells. Orbits: No acute abnormality, as visualized. Other findings: The left hippocampus is slightly smaller than the right side. The hippocampi are normal in signal intensity, without definitive mesial temporal sclerosis. IMPRESSION: 1. There are a few bands of restricted diffusion within the right posterior frontal lobe, with an additional small focus of restricted diffusion in the left posterior frontal white matter. These findings are consistent with acute infarcts. 2. There is magnetic susceptibility in the region of the right frontal lobe infarct, consistent with a component of hemorrhage. A repeat head CT is recommended. 3. Encephalomalacia with a surrounding zone of gliosis is visualized within the left frontal lobe, consistent with an old infarct. A small area of gliosis is also seen within the right parietal cortex. 4. There are scattered additional foci of high FLAIR signal intensity within the cerebral white matter and carlos. In a patient this age, this likely represents chronic small vessel ischemic disease. 5. Atrophy. 6. Incidental/non-acute findings are described above.
[2016-12-11] MEDS: Pantoprazole 40 mg EC Tab PO SCH (05:23)
[2016-12-11] MEDS: Enoxaparin 100 mg Syringe SC SCH (05:32)
[2016-12-11 06:28] LABS: INR 1.03 (0.93-1.08)
[2016-12-11 06:41] LABS: ALB/GLOB RATIO 1.3 (1.1-1.8); ALKALINE PHOSPHATASE 109 U/L (38-133); ALT/SGPT 26 U/L (7-56); AST/SGOT 21 U/L (15-59); BILIRUBIN,TOTAL 1.2 mg/dL (0.2-1.3); BLOOD UREA NITROGEN 16 mg/dL (7-21); CARBON DIOXIDE 24 mmol/L (21-33); CHLORIDE 105 mmol/L (98-107); GFR AFRICAN-AMERICAN > 60; GLUCOSE,RANDOM 187 mg/dL (70-110); POTASSIUM 3.7 mmol/L (3.6-5.0); SODIUM 140 mmol/L (132-148); TOTAL PROTEIN 6.3 g/dL (5.8-8.3)
[2016-12-11 06:44] LABS: BASO # 0.01 K/mm3 (0.0-2.0); BASO % 0.2 % (0.0-3.0); EOS # 0.2 (0.0-0.7); EOS % 2.6 % (1.5-5.0); GRAN # 4.65 (1.4-6.5); GRAN % 69.9 % (50.0-68.0); HEMATOCRIT 44.7 % (42.0-52.0); LYMPH # 1.3 (1.2-3.4); LYMPH % 19.9 % (22.0-35.0); MEAN CELL VOLUME 88.9 fl (80.0-105.0); MEAN CORPUSCULAR HEMOGLOBIN 30.4 pg (25.0-35.0); MEAN CORPUSCULAR HGB CONC 34.2 g/dl (31.0-37.0); MEAN PLATELET VOLUME 11.4 fl (7.0-11.0); MONO # 0.5 (0.1-0.6); MONO % 7.4 % (1.0-6.0); RED CELL DISTRIBUTION WIDTH 14.4 % (11.5-14.5); WHITE BLOOD COUNT 6.6 10^3/ul (4.5-11.0)
[2016-12-11] MEDS: Insulin Reg-HIGH-Coverage SC SCH ×4 (09:45→21:55)
[2016-12-11] MEDS: levETIRAcetam 500mg IVPB 500 MG/100 ML BAG IV SCH ×2 (09:46→21:56)
[2016-12-11] MEDS: Insulin Detemir 100 units/ml Vial (Levemir) SC SCH ×2 (09:47→21:57)
[2016-12-11] MEDS: Thiamine 100 mg/ml Inj IM SCH (09:51)
[2016-12-11] MEDS ORDERED: Enoxaparin 100 mg Syringe SC SCH (10:15)
--- NOTE | 2016-12-11 10:25 | CP.PCM.PN ---
<Brock Wade - Last Filed: 12/11/16 10:26> Subjective - Date & Time of Evaluation Date of Evaluation: 12/11/16 Time of Evaluation: 10:23 - Subjective Subjective: Neurology Progress Note for Dr. Love Pt seen and examined at bedside. Pt doing well overnight with no acute findings. Pt with no complaints at this time. Denies CP, SOB, syncope, lightheadedness. Objective - Vital Signs/Intake and Output Vital Signs (last 24 hours): Temp Pulse Resp BP Pulse Ox 98.3 F 78 17 163/77 H 100 12/11/16 04:00 12/11/16 09:47 12/11/16 08:00 12/11/16 09:47 12/11/16 08:00 Intake and Output: 12/11/16 12/11/16 06:59 18:59 Intake Total 580 240 Output Total 0 600 Balance 580 -360 - Medications Medications: Current Medications Aspirin (Aspirin Chewable) 81 mg PO DAILY [facility] Last Admin: 12/11/16 09:45 Dose: Not Given Atorvastatin Calcium (Lipitor) 40 mg PO DIN [facility] Last Admin: 12/10/16 17:08 Dose: 40 mg Enoxaparin Sodium (Lovenox) 100 mg SC Q12H CM PRN Reason: Protocol Gabapentin (Neurontin) 300 mg PO TID CM PRN Reason: Protocol Last Admin: 12/11/16 09:50 Dose: 300 mg Levetiracetam (Keppra 500mg Ivpb) 500 mg in 100 mls @ 460 mls/hr IV Q12 [facility] Last Admin: 12/11/16 09:46 Dose: 460 mls/hr Insulin Detemir (Levemir) 20 unit SC Q12 CM Last Admin: 12/11/16 09:47 Dose: 20 unit Insulin Human Regular (Humulin R High) 0 units SC ACHS CM PRN Reason: Protocol Last Admin: 12/11/16 09:45 Dose: 1 units Levetiracetam (Keppra) 500 mg PO BID [facility] Last Admin: 12/09/16 11:37 Dose: Not Given Lorazepam (Ativan) 2 mg IVP Q2 PRN; Protocol PRN Reason: Seizure activity Last Admin: 12/10/16 21:00 Dose: 2 mg Metoprolol Tartrate (Lopressor) 5 mg IVP Q6H PRN PRN Reason: Systolic Blood Pressure Last Admin: 12/09/16 16:57 Dose: 5 mg Metoprolol Tartrate (Lopressor) 25 mg PO BID [facility] Last Admin: 12/11/16 09:47 Dose: 25 mg Pantoprazole Sodium (Protonix Ec Tab) 40 mg PO 0600 [facility] Last Admin: 12/11/16 05:23 Dose: 40 mg Rivaroxaban (Xarelto) 15 mg PO DAILY [facility] PRN Reason: Protocol Last Admin: 12/09/16 11:37 Dose: Not Given Thiamine HCl (Vitamin B1 Inj) 100 mg IM DAILY [facility] Last Admin: 12/11/16 09:51 Dose: 100 mg - Labs Labs: 12/11/16 05:30 12/11/16 06:00 PT 11.1 Seconds (9.9-11.8) 12/11/16 05:00 INR 1.03 (0.93-1.08) 12/11/16 05:00 APTT 22.3 Seconds (23.7-30.8) L 12/09/16 08:10 - Constitutional Appears: Non-toxic, No Acute Distress - Head Exam Head Exam: NORMAL INSPECTION, NORMOCEPHALIC - Eye Exam Eye Exam: EOMI - ENT Exam ENT Exam: Mucous Membranes Moist - Respiratory Exam Respiratory Exam: Clear to Ausculation Bilateral, NORMAL BREATHING PATTERN. absent: Rales, Rhonchi, Wheezes - Cardiovascular Exam Cardiovascular Exam: RRR, +S1, +S2 - GI/Abdominal Exam GI & Abdominal Exam: Soft, Normal Bowel Sounds. absent: Tenderness - Extremities Exam Extremities Exam: Normal Inspection. absent: Calf Tenderness, Pedal Edema - Neurological Exam Neurological Exam: Alert, Awake, Oriented x3 Neuro motor strength exam: Left Upper Extremity: 5, Right Upper Extremity: 5, Left Lower Extremity: 5, Right Lower Extremity: 5 Additional comments: No pronator drift No motor or sensory deficits - Psychiatric Exam Psychiatric exam: Normal Affect, Normal Mood - Skin Skin Exam: Intact, Normal Color, Warm Assessment and Plan - Assessment and Plan (Free Text) Plan: 66 y/o M with PMH of CAD, CABG in 2010, Afib, right illofemoral vein DVT, CHF, and DM2 presents with seizure like activity from underlying left frontal cystic encephalomalacia provoked by hyperglycemia and possible emboli secondary to atherosclerotic disease and uncontrolled diabetes. Patient had Brain MRI which showed left posterior frontal white matter acute infarcts, along with right frontal lobe infarct, consistent with hemorrhage. After discussing with radiologist, it was determined that hemorrhage was previous hemosiderin deposit and was not acute in nature. Patient may be continued on Lovenox and ASA at this time. Will reorder Head CT in 2 days. EEG showed b/l cerebral dysfunction with no epileptic activity. Pt is neurologically stable, will continue to monitor. Plan: Continue ASA and Lovenox MRA Neck Reorder Head CT in 2 days Continue Keppra 500 mg BID SBP 130-140 Avoid sedative medications Sheri, PGY-2 <Chapin Love - Last Filed: 12/11/16 11:28> Objective - Vital Signs/Intake and Output Vital Signs (last 24 hours): Temp Pulse Resp BP Pulse Ox 98.3 F 78 17 163/77 H 100 12/11/16 04:00 12/11/16 09:47 12/11/16 08:00 12/11/16 09:47 12/11/16 08:00 Intake and Output: 12/11/16 12/11/16 06:59 18:59 Intake Total 580 240 Output Total 0 600 Balance 580 -360 - Medications Medications: Current Medications Aspirin (Aspirin Chewable) 81 mg PO DAILY [facility] Last Admin: 12/11/16 09:45 Dose: Not Given Atorvastatin Calcium (Lipitor) 40 mg PO DIN [facility] Last Admin: 12/10/16 17:08 Dose: 40 mg Enoxaparin Sodium (Lovenox) 100 mg SC Q12H CM PRN Reason: Protocol Last Admin: 12/11/16 10:51 Dose: 100 mg Gabapentin (Neurontin) 300 mg PO TID CM PRN Reason: Protocol Last Admin: 12/11/16 09:50 Dose: 300 mg Levetiracetam (Keppra 500mg Ivpb) 500 mg in 100 mls @ 460 mls/hr IV Q12 [facility] Last Admin: 12/11/16 09:46 Dose: 460 mls/hr Insulin Detemir (Levemir) 20 unit SC Q12 [facility] Last Admin: 12/11/16 09:47 Dose: 20 unit Insulin Human Regular (Humulin R High) 0 units SC ACHS CM PRN Reason: Protocol Last Admin: 12/11/16 09:45 Dose: 1 units Levetiracetam (Keppra) 500 mg PO BID [facility] Last Admin: 12/09/16 11:37 Dose: Not Given Lorazepam (Ativan) 2 mg IVP Q2 PRN; Protocol PRN Reason: Seizure activity Last Admin: 12/10/16 21:00 Dose: 2 mg Metoprolol Tartrate (Lopressor) 5 mg IVP Q6H PRN PRN Reason: Systolic Blood Pressure Last Admin: 12/09/16 16:57 Dose: 5 mg Metoprolol Tartrate (Lopressor) 25 mg PO BID [facility] Last Admin: 12/11/16 09:47 Dose: 25 mg Pantoprazole Sodium (Protonix Ec Tab) 40 mg PO 0600 [facility] Last Admin: 12/11/16 05:23 Dose: 40 mg Rivaroxaban (Xarelto) 15 mg PO DAILY CM PRN Reason: Protocol Last Admin: 12/09/16 11:37 Dose: Not Given Thiamine HCl (Vitamin B1 Inj) 100 mg IM DAILY [facility] Last Admin: 12/11/16 09:51 Dose: 100 mg - Labs Labs: 12/11/16 05:30 12/11/16 06:00 PT 11.1 Seconds (9.9-11.8) 12/11/16 05:00 INR 1.03 (0.93-1.08) 12/11/16 05:00 APTT 22.3 Seconds (23.7-30.8) L 12/09/16 08:10 Attending/Attestation - Attestation I have personally seen and examined this patient.: Yes I have fully participated in the care of the patient.: Yes I have reviewed all pertinent clinical information, including history, physical exam and plan: Yes
--- NOTE | 2016-12-11 12:33 | CT ---
PROCEDURE: CT HEAD WITHOUT CONTRAST. HISTORY: MRI findings of right frontal lobe infarct COMPARISON: 12/09/2016 TECHNIQUE: Axial computed tomography images were obtained through the head/brain without intravenous contrast. Radiation dose: Total exam DLP = 758 mGy-cm. This CT exam was performed using one or more of the following dose reduction techniques: Automated exposure control, adjustment of the mA and/or kV according to patient size, and/or use of iterative reconstruction technique. FINDINGS: HEMORRHAGE: No intracranial hemorrhage. BRAIN: No mass effect or edema. There is encephalomalacia in the anterior left frontal lobe. This is unchanged. No acute findings. VENTRICLES: Unremarkable. No hydrocephalus. CALVARIUM: Unremarkable. PARANASAL SINUSES: Unremarkable as visualized. No significant inflammatory changes. MASTOID AIR CELLS: Unremarkable as visualized. No inflammatory changes. OTHER FINDINGS: None. IMPRESSION: No acute findings. No change
[2016-12-11] MEDS ORDERED: Gadodiamide 287 MG/ML VIAL (20ML) IV ONE (12:58)
--- NOTE | 2016-12-11 13:30 | CP.PCM.PN ---
Subjective - Date & Time of Evaluation Date of Evaluation: 12/11/16 Time of Evaluation: 07:00 - Subjective Subjective: Pt s/e bedside. Patient's mentation continues to improve, and last seizure activity was at 8 PM on the . Patient states that he feels better and that he does not feel any muscle aches from the seizures. He further states that he remembers most of what occurred the past two days. He feels stronger than he did before, as he came in for generalized weakness. Denies f/ch/n/v/d/cp/sob. No further complaints. Objective - Vital Signs/Intake and Output Vital Signs (last 24 hours): Temp Pulse Resp BP Pulse Ox 98.3 F 78 17 163/77 H 100 12/11/16 04:00 12/11/16 09:47 12/11/16 08:00 12/11/16 09:47 12/11/16 08:00 Intake and Output: 12/11/16 12/11/16 06:59 18:59 Intake Total 580 240 Output Total 0 600 Balance 580 -360 - Medications Medications: Current Medications Aspirin (Aspirin Chewable) 81 mg PO DAILY [facility] Last Admin: 12/11/16 09:45 Dose: Not Given Atorvastatin Calcium (Lipitor) 40 mg PO DIN [facility] Last Admin: 12/10/16 17:08 Dose: 40 mg Enoxaparin Sodium (Lovenox) 100 mg SC Q12H CM PRN Reason: Protocol Last Admin: 12/11/16 10:51 Dose: 100 mg Gabapentin (Neurontin) 300 mg PO TID CM PRN Reason: Protocol Last Admin: 12/11/16 09:50 Dose: 300 mg Levetiracetam (Keppra 500mg Ivpb) 500 mg in 100 mls @ 460 mls/hr IV Q12 [facility] Last Admin: 12/11/16 09:46 Dose: 460 mls/hr Insulin Detemir (Levemir) 20 unit SC Q12 [facility] Last Admin: 12/11/16 09:47 Dose: 20 unit Insulin Human Regular (Humulin R High) 0 units SC ACHS CM PRN Reason: Protocol Last Admin: 12/11/16 11:43 Dose: 4 units Levetiracetam (Keppra) 500 mg PO BID [facility] Last Admin: 12/09/16 11:37 Dose: Not Given Lorazepam (Ativan) 2 mg IVP Q2 PRN; Protocol PRN Reason: Seizure activity Last Admin: 12/10/16 21:00 Dose: 2 mg Metoprolol Tartrate (Lopressor) 5 mg IVP Q6H PRN PRN Reason: Systolic Blood Pressure Last Admin: 12/09/16 16:57 Dose: 5 mg Metoprolol Tartrate (Lopressor) 25 mg PO BID [facility] Last Admin: 12/11/16 09:47 Dose: 25 mg Pantoprazole Sodium (Protonix Ec Tab) 40 mg PO 0600 [facility] Last Admin: 12/11/16 05:23 Dose: 40 mg Rivaroxaban (Xarelto) 15 mg PO DAILY CM PRN Reason: Protocol Last Admin: 12/09/16 11:37 Dose: Not Given Thiamine HCl (Vitamin B1 Inj) 100 mg IM DAILY [facility] Last Admin: 12/11/16 09:51 Dose: 100 mg - Labs Labs: 12/11/16 05:30 12/11/16 06:00 PT 11.1 Seconds (9.9-11.8) 12/11/16 05:00 INR 1.03 (0.93-1.08) 12/11/16 05:00 APTT 22.3 Seconds (23.7-30.8) L 12/09/16 08:10 - Additional Findings Additional findings: VS as below Constitutional: a&o x 4, nad Head and Neck: neck supple, no jvd, trachea midline, carotid midline, no cervical/head mass Eyes: rosenda, nonicteric sclera, eom intact ENT: auditory acuity grossly intact, throat not congested, no nasal deformity Cardio: Arrhythmia; regular rate, no m/r/g, no carotid bruit, nml s1, s2 Pulm: no accessory muscle use, equal nml breath sounds bilaterally, ctab Abd: s/nt/nd, nbs x 4 q, no palpable masses Derm: no rashes, no ulcers, no lesions Extr: no edema, no cyanosis, no calf tenderness, no lesions, no varicosities Neuro: cn II-XII grossly intact, ue and le 5/5 muscle strength bilaterally, no los ue, le bilaterally and core Assessment and Plan - Assessment and Plan (Free Text) Assessment: 66 year old male with pmh sig for CAD, CABG in 2010, Afib, hx of DVT, and DM who presents to ED complaining of 3 day history of weakness and bilateral hand and face tremor/twitching episodes. Patient is noted to be euvolemic with minimal hypokalemia and elevated bg of 400 plus. When patient brought up to the floor, a rapid response was called on him 2/2 seizure activity. Patient was stabilized and transferred to ICU. Now patient in telemetry. Plan: 1. Seizure activity - Patient had at least 3 witnessed seizures - Neuro c/s: neuroencephalomalacia in addition to hyperglycemia could contribute to seizure activity. Continue ASA and Lovenox MRA Neck Reorder Head CT in 2 days Continue Keppra 500 mg BID SBP 130-140 Avoid sedative medications - MRI showed possible acute infarct. No focal neurologic deficits appreciated - Patient also had benzos on his UDS, which he abruptly stopped taking - this could contribute to seizure activity - Ativan 2 q4 - Patient in ICU 2. Generalized weakness - Generalized weakness for past 3 days, afebrile on admission - K 3.4, bg 441, other electrolytes normal, replace potassium, continue to monitor - TSH normal - Urine drug screen: positive for benzos - Sputum clx, blood clx, UA, clx - Neurovascularly intact, Head CT showing nonspecific white matter changes, acute infarction may be CT occult within first 24 hours. If a focal deficit persists consider follow up CT or MRI for further evaluation - Neuro checks Q4H 3. Hx of Atrial fibrillation - EKG in ED showing Atrial Flutter at 98 bpm, non-specific ST/T wave changes - rate control with Lopressor - Heparin and ASA - Continue to monitor 4. Hx of CAD - Lipid panel - Trending troponins - Statin - heart healthy diet 5. DM2 - HgA1c - ACHS - ISS-high 6. GI/DVT ppx - Protonix - Heparin SC
--- NOTE | 2016-12-11 14:58 | MRI ---
PROCEDURE: MR Angiography of the neck with and without contrast HISTORY: Possible stroke COMPARISON: None available. TECHNIQUE: Contrast enhanced and [id number] angiography of the neck was performed. Rotating 3D maximum intensity projection images of the cervical carotid and vertebral arteries were generated. 20 cc of Omniscan FINDINGS: RIGHT CAROTID ARTERIES: Common Carotid Artery: Normal. Carotid Bifurcation: Normal. Internal Carotid Artery:Normal. External Carotid Artery (proximal branches): Normal. LEFT CAROTID ARTERIES: Common Carotid Artery: Normal. Carotid Bifurcation: Normal. Internal Carotid Artery:Normal. External Carotid Artery (proximal branches): Normal. VERTEBRAL ARTERIES: Right Vertebral Artery: Normal. Left Vertebral Artery: Normal. OTHER FINDINGS: None. IMPRESSION: No significant stenosis
[2016-12-12] MEDS: Pantoprazole 40 mg EC Tab PO SCH (05:51)
[2016-12-12] MEDS: Enoxaparin 100 mg Syringe SC SCH ×2 (05:54→17:20)
[2016-12-12 06:06] LABS: BASO # 0.01 K/mm3 (0.0-2.0); BASO % 0.2 % (0.0-3.0); EOS # 0.1 (0.0-0.7); EOS % 2.1 % (1.5-5.0); GRAN # 4.12 (1.4-6.5); GRAN % 67.4 % (50.0-68.0); LYMPH # 1.3 (1.2-3.4); LYMPH % 21.1 % (22.0-35.0); MEAN CELL VOLUME 88.2 fl (80.0-105.0); MEAN CORPUSCULAR HEMOGLOBIN 30.3 pg (25.0-35.0); MEAN CORPUSCULAR HGB CONC 34.3 g/dl (31.0-37.0); MEAN PLATELET VOLUME 10.8 fl (7.0-11.0); MONO # 0.6 (0.1-0.6); MONO % 9.2 % (1.0-6.0); WHITE BLOOD COUNT 6.1 10^3/ul (4.5-11.0)
[2016-12-12 06:17] LABS: INR 1.04 (0.93-1.08)
[2016-12-12 06:35] LABS: ALB/GLOB RATIO 1.2 (1.1-1.8); ALKALINE PHOSPHATASE 96 U/L (38-133); ALT/SGPT 24 U/L (7-56); AST/SGOT 18 U/L (15-59); BILIRUBIN,TOTAL 1.2 mg/dL (0.2-1.3); BLOOD UREA NITROGEN 16 mg/dL (7-21); CARBON DIOXIDE 28 mmol/L (21-33); CHLORIDE 101 mmol/L (98-107); GFR AFRICAN-AMERICAN > 60; GLUCOSE,RANDOM 184 mg/dL (70-110); MAGNESIUM 1.8 mg/dL (1.7-2.2); PHOSPHOROUS 3.2 mg/dL (2.5-4.5); POTASSIUM 3.5 mmol/L (3.6-5.0); SODIUM 138 mmol/L (132-148); TOTAL PROTEIN 6.1 g/dL (5.8-8.3)
[2016-12-12] MEDS: Thiamine 100 mg/ml Inj IM SCH (09:54)
[2016-12-12] MEDS: Insulin Reg-HIGH-Coverage SC SCH ×5 (09:55→21:15)
[2016-12-12] MEDS: Insulin Detemir 100 units/ml Vial (Levemir) SC SCH ×2 (09:55→21:21)
[2016-12-12] MEDS: Potassium Chloride 20 mEq ER Tab PO SCH ×2 (10:53→17:20)
[2016-12-12] MEDS: levETIRAcetam 500 mg/5ml UD cups PO SCH ×2 (10:53→17:20)
--- NOTE | 2016-12-12 13:05 | CP.PCM.PN ---
<Brock Wade - Last Filed: 12/12/16 13:05> Subjective - Date & Time of Evaluation Date of Evaluation: 12/12/16 Time of Evaluation: 13:02 - Subjective Subjective: Progress Note for Dr. Love Pt seen and examined at bedside. No acute events overnight. Pt did admit to occasional dizziness overnight. Patient states he is improving slowly. Denies CP , SOB, N/V/D, syncope, weakness. Objective - Vital Signs/Intake and Output Vital Signs (last 24 hours): Temp Pulse Resp BP Pulse Ox 98 F 99 H 20 139/103 H 98 12/12/16 08:13 12/12/16 08:13 12/12/16 08:13 12/12/16 09:46 12/12/16 08:13 Intake and Output: 12/12/16 12/12/16 06:59 18:59 Intake Total 1020 Output Total 1150 Balance -130 - Medications Medications: Current Medications Aspirin (Aspirin Chewable) 81 mg PO DAILY [facility] Last Admin: 12/12/16 09:46 Dose: 81 mg Atorvastatin Calcium (Lipitor) 40 mg PO DIN [facility] Last Admin: 12/11/16 17:29 Dose: 40 mg Enoxaparin Sodium (Lovenox) 100 mg SC 0600,1800 [facility] PRN Reason: Protocol Last Admin: 12/12/16 05:54 Dose: 100 mg Gabapentin (Neurontin) 300 mg PO TID CM PRN Reason: Protocol Last Admin: 12/12/16 09:46 Dose: 300 mg Insulin Detemir (Levemir) 20 unit SC Q12 [facility] Last Admin: 12/12/16 09:55 Dose: 20 unit Insulin Human Regular (Humulin R High) 0 units SC ACHS [facility] PRN Reason: Protocol Last Admin: 12/12/16 09:55 Dose: 2 units Levetiracetam (Keppra) 500 mg PO BID [facility] Last Admin: 12/12/16 10:53 Dose: 500 mg Lorazepam (Ativan) 2 mg IVP Q2 PRN; Protocol PRN Reason: Seizure activity Last Admin: 12/10/16 21:00 Dose: 2 mg Metoprolol Tartrate (Lopressor) 5 mg IVP Q6H PRN PRN Reason: Systolic Blood Pressure Last Admin: 12/09/16 16:57 Dose: 5 mg Metoprolol Tartrate (Lopressor) 25 mg PO BID [facility] Last Admin: 12/12/16 09:46 Dose: 25 mg Pantoprazole Sodium (Protonix Ec Tab) 40 mg PO 0600 [facility] Last Admin: 12/12/16 05:51 Dose: 40 mg Potassium Chloride (K-Dur 20 Meq Er Tab) 20 meq PO BID [facility] Last Admin: 12/12/16 10:53 Dose: 20 meq Rivaroxaban (Xarelto) 15 mg PO DAILY [facility] PRN Reason: Protocol Last Admin: 12/09/16 11:37 Dose: Not Given Thiamine HCl (Vitamin B1 Inj) 100 mg IM DAILY [facility] Last Admin: 12/12/16 09:54 Dose: 100 mg - Labs Labs: 12/12/16 05:20 12/12/16 05:20 PT 11.2 Seconds (9.9-11.8) 12/12/16 05:20 INR 1.04 (0.93-1.08) 12/12/16 05:20 APTT 22.3 Seconds (23.7-30.8) L 12/09/16 08:10 - Constitutional Appears: Non-toxic, No Acute Distress - Head Exam Head Exam: ATRAUMATIC, NORMAL INSPECTION, NORMOCEPHALIC - Respiratory Exam Respiratory Exam: Clear to Ausculation Bilateral, NORMAL BREATHING PATTERN. absent: Rales, Rhonchi, Wheezes - Cardiovascular Exam Cardiovascular Exam: RRR, +S1, +S2 - GI/Abdominal Exam GI & Abdominal Exam: Soft, Normal Bowel Sounds. absent: Tenderness - Extremities Exam Extremities Exam: Normal Inspection. absent: Calf Tenderness, Pedal Edema - Neurological Exam Neurological Exam: Alert, Awake, CN II-XII Intact, Oriented x3 Neuro motor strength exam: Left Upper Extremity: 5, Right Upper Extremity: 5, Left Lower Extremity: 5, Right Lower Extremity: 5 - Psychiatric Exam Psychiatric exam: Normal Affect, Normal Mood - Skin Skin Exam: Intact, Normal Color, Warm Assessment and Plan - Assessment and Plan (Free Text) Plan: 66 y/o M with PMH of CAD, CABG in 2010, Afib, right illofemoral vein DVT, CHF, and DM2 presents with seizure from underlying left frontal cystic encephalomalacia provoked by hyperglycemia and possible emboli secondary to atherosclerotic disease and uncontrolled diabetes. Brain MRI not consistent with hemorrhage after discussion with radiologist. Patient may be continued on Lovenox and ASA at this time. EEG negative for seizure activitiy. Head CT tomorrow, if negative will sign off. Pt is neurologically stable, will continue to monitor. Plan: Continue ASA and Lovenox Head CT tomorrow Maintain euglycemia Continue Keppra 500 mg BID SBP 130-140 Avoid sedative medications Sheri, PGY-2 <Chaipn Love - Last Filed: 12/12/16 14:09> Objective - Vital Signs/Intake and Output Vital Signs (last 24 hours): Temp Pulse Resp BP Pulse Ox 98 F 99 H 20 139/103 H 98 12/12/16 08:13 12/12/16 08:13 12/12/16 08:13 12/12/16 09:46 12/12/16 08:13 Intake and Output: 12/12/16 12/12/16 06:59 18:59 Intake Total 1020 Output Total 1150 Balance -130 - Medications Medications: Current Medications Aspirin (Aspirin Chewable) 81 mg PO DAILY [facility] Last Admin: 12/12/16 09:46 Dose: 81 mg Atorvastatin Calcium (Lipitor) 40 mg PO DIN [facility] Last Admin: 12/11/16 17:29 Dose: 40 mg Enoxaparin Sodium (Lovenox) 100 mg SC 0600,1800 [facility] PRN Reason: Protocol Last Admin: 12/12/16 05:54 Dose: 100 mg Gabapentin (Neurontin) 300 mg PO TID CM PRN Reason: Protocol Last Admin: 12/12/16 13:49 Dose: 300 mg Insulin Detemir (Levemir) 20 unit SC Q12 [facility] Last Admin: 12/12/16 09:55 Dose: 20 unit Insulin Human Regular (Humulin R High) 0 units SC ACHS CM PRN Reason: Protocol Last Admin: 12/12/16 12:09 Dose: 4 units Levetiracetam (Keppra) 500 mg PO BID [facility] Last Admin: 12/12/16 10:53 Dose: 500 mg Lorazepam (Ativan) 2 mg IVP Q2 PRN; Protocol PRN Reason: Seizure activity Last Admin: 12/10/16 21:00 Dose: 2 mg Metoprolol Tartrate (Lopressor) 5 mg IVP Q6H PRN PRN Reason: Systolic Blood Pressure Last Admin: 12/09/16 16:57 Dose: 5 mg Metoprolol Tartrate (Lopressor) 25 mg PO BID [facility] Last Admin: 12/12/16 09:46 Dose: 25 mg Pantoprazole Sodium (Protonix Ec Tab) 40 mg PO 0600 [facility] Last Admin: 12/12/16 05:51 Dose: 40 mg Potassium Chloride (K-Dur 20 Meq Er Tab) 20 meq PO BID [facility] Last Admin: 12/12/16 10:53 Dose: 20 meq Rivaroxaban (Xarelto) 15 mg PO DAILY [facility] PRN Reason: Protocol Last Admin: 12/09/16 11:37 Dose: Not Given Thiamine HCl (Vitamin B1 Inj) 100 mg IM DAILY [facility] Last Admin: 12/12/16 09:54 Dose: 100 mg - Labs Labs: 12/12/16 05:20 12/12/16 05:20 PT 11.2 Seconds (9.9-11.8) 12/12/16 05:20 INR 1.04 (0.93-1.08) 12/12/16 05:20 APTT 22.3 Seconds (23.7-30.8) L 12/09/16 08:10 Attending/Attestation - Attestation I have personally seen and examined this patient.: Yes I have fully participated in the care of the patient.: Yes I have reviewed all pertinent clinical information, including history, physical exam and plan: Yes
[2016-12-12] MEDS ORDERED: Labetalol 5 mg/ml Inj 20ML IVP ONE (20:08)
[2016-12-12 20:30] LABS: BASO # 0.01 K/mm3 (0.0-2.0); BASO % 0.1 % (0.0-3.0); EOS # 0.1 (0.0-0.7); EOS % 1.5 % (1.5-5.0); GRAN # 4.95 (1.4-6.5); GRAN % 68.6 % (50.0-68.0); HEMATOCRIT 42.3 % (42.0-52.0); LYMPH # 1.6 (1.2-3.4); LYMPH % 21.4 % (22.0-35.0); MEAN CELL VOLUME 87.8 fl (80.0-105.0); MEAN CORPUSCULAR HEMOGLOBIN 30.3 pg (25.0-35.0); MEAN CORPUSCULAR HGB CONC 34.5 g/dl (31.0-37.0); MEAN PLATELET VOLUME 11.3 fl (7.0-11.0); MONO # 0.6 (0.1-0.6); MONO % 8.4 % (1.0-6.0); RED CELL DISTRIBUTION WIDTH 13.8 % (11.5-14.5); WHITE BLOOD COUNT 7.2 10^3/ul (4.5-11.0)
--- NOTE | 2016-12-12 20:33 | PCM.RRTMUL ---
<Ankur Owens - Last Filed: 12/13/16 04:54> BATCH FREEZER Nurse Assessment - Situation Date: 12/12/16 BATCH FREEZER Responder Arrival Time:: 20:50 Location:: 3rd Floor Room Number:: [id number] BATCH FREEZER Called By: RN - IV IV Inserted during BATCH FREEZER?: No - Respiratory Oxygen Delivery Method:: Nasal Cannula Received Nebulizer Treatments:: No Was the Patient Ventilated with Bag/Mask 100% O2?: No Was the Patient Intubated?: No Was the Patient Placed on a Ventilator?: No - Ventilator Settings FIO2 (% Oxygen):: 97 - Diagnostic Test Ordered EKG:: Yes (Aflutter, LAD, T wave inversions in lateral leads V4-V6) Chest X-Ray:: No - Stat Labs Ordered BATCH FREEZER Stat Labs Ordered:: CBC, TROPONIN BATCH FREEZER Other Labs Ordered:: Procalcitonin, Mg, Phos, CMP - Vital Signs Temperature: 98.2 F Pulse Rate: 56 Respiratory Rate: 18 Blood Pressure: 190/120 - Finger Stick Blood Glucose Finger Stick Blood Glucose: 321 - Margi Coma Scale Coma Scale Eye Opening:: Spontaneous Coma Scale Motor:: Obeys Commands Movement Coma Scale Verbal:: Oriented Coma Scale Total:: 15 I.Reason for BATCH FREEZER - A) Acute Change in Patient: Subjective: Rapid Response called by nurse on 3rd floor who witnessed patient having seizure activity while laying in bed. Report from eye witness indicates patient had a partial seziure with tetany and flexion lasting one minute. Arrived at bedside immediately following patient seizure. Patient noted to not have post- ictal state, alert & oriented x3. Able to follow commands. Patient BP was elevated with systolic BP +190 and diastolic BP +100 with HR in 60s. Patient was given 2 mg of Ativan and hydralazine IVP. Patient bg was noted to be elevated at 321. Following labs were ordered: CBC, CMP, Procal, Mg, Phos, Troponin. An EKG was done showing Aflutter with minimal T wave inversions in lateral leads. Dr. Chowdhury and Dr. Christie were present and at bedside. Neurology was contacted with no response at time of documentation. - A) Initial Vital Signs: Temperature: 98.2 F Pulse Rate: 56 Respiratory Rate: 18 Oxygen Saturation: 99 (RA) Finger Stick Blood Glucose: 321 - B) Neurological Status (Select all that apply): Alert, Responsive, Oriented, Verbal, Follows Commands - C) Respiratory Oxygen Delivery Method: Room Air - Constitutional Appears: Well, No Acute Distress - Head Head Exam: ATRAUMATIC, NORMAL INSPECTION, NORMOCEPHALIC - Eyes Eye Exam: EOMI, PERRL - Respiratory Exam Respiratory Exam: Decreased Breath Sounds, Clear to Ausculation Bilateral, NORMAL BREATHING PATTERN - Cardiovascular Exam Cardiovascular Exam: Bradycardia, +S1, +S2 - GI/Abdominal Exam GI & Abdominal Exam: Soft, Normal Bowel Sounds. absent: Tenderness - Neurological Exam Neurological Exam: Alert, Awake, CN II-XII Intact, Oriented x3 - Extremities Exam Extremities Exam: Full ROM, Normal Capillary Refill, Normal Inspection Plan - A. End of BATCH FREEZER Vital Signs: Blood Pressure: 150/95 Pulse Rate: 56 Respiratory Rate: 18 Temperature: 98.5 F O2 Sat by Pulse Oximetry: 98 (2L NC) - B. Assessment of Findings&Treatment Plan - EKG - Labs - Monitor VS - Consult neurology <ChristieMiguel [email or web address] - Last Filed: 12/13/16 05:46> Attending/Attestation - Attestation I have personally seen and examined this patient.: Yes I have fully participated in the care of the patient.: Yes I have reviewed all pertinent clinical information, including history, physical exam and plan: Yes Notes (Text): 12/13/16 05:38 Agree with medical records manager. EKG --->Atrial flutter with variable rate, ST T changes present, inferior lateral ischemia present.
[2016-12-12 20:46] LABS: ALB/GLOB RATIO 1.3 (1.1-1.8); ALKALINE PHOSPHATASE 104 U/L (38-133); ALT/SGPT 23 U/L (7-56); AST/SGOT 23 U/L (15-59); BLOOD UREA NITROGEN 19 mg/dL (7-21); CALCIUM 9.3 mg/dL (8.4-10.5); CARBON DIOXIDE 22 mmol/L (21-33); CHLORIDE 100 mmol/L (98-107); GFR AFRICAN-AMERICAN > 60; MAGNESIUM 1.8 mg/dL (1.7-2.2); PHOSPHOROUS 3.1 mg/dL (2.5-4.5); POTASSIUM 4.5 mmol/L (3.6-5.0); SODIUM 135 mmol/L (132-148); TOTAL PROTEIN 6.6 g/dL (5.8-8.3)
[2016-12-12 20:55] LABS: GLUCOSE,RANDOM 314 mg/dL (70-110)
[2016-12-12 20:56] LABS: TROPONIN I 0.02 ng/mL
--- NOTE | 2016-12-12 22:01 | CP.PCM.PN ---
Subjective - Date & Time of Evaluation Date of Evaluation: 12/12/16 Time of Evaluation: 09:00 - Subjective Subjective: Pt s/e bedside. Patient's mentation continues to improve, and last seizure activity was at 8 PM on the . Patient states that he feels better and that he does not feel any muscle aches from the seizures. He further states that he remembers most of what occurred the past three days. He feels stronger than he did before, as he came in for generalized weakness. Spoke to Rodo Karyn from his [place] hospital to determine where to place the patient for rehab. She states that he should be covered by both Medicare and [place] benefits. Denies f/ch/n/v/d/ cp/sob. No further complaints. Objective - Vital Signs/Intake and Output Vital Signs (last 24 hours): Temp Pulse Resp BP Pulse Ox 98.4 F 54 L 18 170/117 H 99 12/12/16 16:01 12/12/16 20:24 12/12/16 16:01 12/12/16 20:24 12/12/16 16:01 - Medications Medications: Current Medications Aspirin (Aspirin Chewable) 81 mg PO DAILY [facility] Last Admin: 12/12/16 09:46 Dose: 81 mg Atorvastatin Calcium (Lipitor) 40 mg PO DIN [facility] Last Admin: 12/12/16 17:20 Dose: 40 mg Enoxaparin Sodium (Lovenox) 100 mg SC 0600,1800 [facility] PRN Reason: Protocol Last Admin: 12/12/16 17:20 Dose: 100 mg Gabapentin (Neurontin) 300 mg PO TID CM PRN Reason: Protocol Last Admin: 12/12/16 17:20 Dose: 300 mg Insulin Detemir (Levemir) 20 unit SC Q12 [facility] Last Admin: 12/12/16 21:21 Dose: 20 unit Insulin Human Regular (Humulin R High) 0 units SC ACHS CM PRN Reason: Protocol Last Admin: 12/12/16 21:15 Dose: 10 units Levetiracetam (Keppra) 500 mg PO BID [facility] Last Admin: 12/12/16 17:20 Dose: 500 mg Lorazepam (Ativan) 2 mg IVP Q2 PRN; Protocol PRN Reason: Seizure activity Last Admin: 12/12/16 20:21 Dose: 2 mg Metoprolol Tartrate (Lopressor) 5 mg IVP Q6H PRN PRN Reason: Systolic Blood Pressure Last Admin: 12/09/16 16:57 Dose: 5 mg Metoprolol Tartrate (Lopressor) 25 mg PO BID [facility] Last Admin: 12/12/16 17:20 Dose: 25 mg Pantoprazole Sodium (Protonix Ec Tab) 40 mg PO 0600 [facility] Last Admin: 12/12/16 05:51 Dose: 40 mg Potassium Chloride (K-Dur 20 Meq Er Tab) 20 meq PO BID [facility] Last Admin: 12/12/16 17:20 Dose: 20 meq Rivaroxaban (Xarelto) 15 mg PO DAILY [facility] PRN Reason: Protocol Last Admin: 12/09/16 11:37 Dose: Not Given Thiamine HCl (Vitamin B1 Inj) 100 mg IM DAILY [facility] Last Admin: 12/12/16 09:54 Dose: 100 mg - Labs Labs: 12/12/16 20:22 12/12/16 20:22 PT 11.2 Seconds (9.9-11.8) 12/12/16 05:20 INR 1.04 (0.93-1.08) 12/12/16 05:20 APTT 22.3 Seconds (23.7-30.8) L 12/09/16 08:10 - Additional Findings Additional findings: VS as below Constitutional: a&o x 4, nad Head and Neck: neck supple, no jvd, trachea midline, carotid midline, no cervical/head mass Eyes: rosenda, nonicteric sclera, eom intact ENT: auditory acuity grossly intact, throat not congested, no nasal deformity Cardio: Arrhythmia; regular rate, no m/r/g, no carotid bruit, nml s1, s2 Pulm: no accessory muscle use, equal nml breath sounds bilaterally, ctab Abd: s/nt/nd, nbs x 4 q, no palpable masses Derm: no rashes, no ulcers, no lesions Extr: no edema, no cyanosis, no calf tenderness, no lesions, no varicosities Neuro: cn II-XII grossly intact, ue and le 5/5 muscle strength bilaterally, no los ue, le bilaterally and core Assessment and Plan - Assessment and Plan (Free Text) Assessment: 66 year old male with pmh sig for CAD, CABG in 2010, Afib, hx of DVT, and DM who presents to ED complaining of 3 day history of weakness and bilateral hand and face tremor/twitching episodes. Patient is noted to be euvolemic with minimal hypokalemia and elevated bg of 400 plus. When patient brought up to the floor, a rapid response was called on him 2/2 seizure activity. Patient was stabilized and transferred to ICU. Now patient in telemetry. Plan: 1. Seizure activity - Patient had at least 3 witnessed seizures - Neuro c/s: neuroencephalomalacia in addition to hyperglycemia could contribute to seizure activity. Brain MRI: not consistent with hemorrhage after discussion with radiologist. MRA Neck: no significant disease EEG: No seizure activity 12/12/[address] tomorrow, 12/13/16 Continue ASA and Lovenox Continue Keppra 500 mg BID Maintain Euglycemia SBP 130-140 Avoid sedative medications If CT Head negative tomorrow, neurology will sign off - MRI 12/10 showed possible acute infarct. No focal neurologic deficits appreciated - Patient also had benzos on his UDS, which he abruptly stopped taking - this could contribute to seizure activity - Ativan 2 q4 - Patient no longer in ICU 2. Generalized weakness - Resolved - Generalized weakness for past 3 days, afebrile on admission - K 3.4, bg 441, other electrolytes normal, replace potassium, continue to monitor - TSH normal - Urine drug screen: positive for benzos - Sputum clx, blood clx, UA, clx: All negative 3. Hx of Atrial fibrillation - EKG in ED showing Atrial Flutter at 98 bpm, non-specific ST/T wave changes - Rate control with Lopressor - Heparin and ASA - Continue to monitor 4. Hx of CAD - Lipid panel - Trending troponins: negative - Statin - Heart healthy diet 5. DM2 - HgA1c - ACHS - ISS-high 6. GI/DVT ppx - Protonix - Heparin SC Dispo: Spoke with nurse from [facility] today. PT/OT Eval pending. Will speak with social work tomorrow, 12/13/[address] patient in [facility] Case dw attending, Dr. Herring
[2016-12-13] MEDS: Pantoprazole 40 mg EC Tab PO SCH (05:28)
[2016-12-13] MEDS: Enoxaparin 100 mg Syringe SC SCH ×2 (05:29→17:30)
[2016-12-13 06:03] LABS: BASO # 0.01 K/mm3 (0.0-2.0); BASO % 0.1 % (0.0-3.0); EOS # 0.1 (0.0-0.7); EOS % 1.5 % (1.5-5.0); GRAN # 4.87 (1.4-6.5); GRAN % 70.6 % (50.0-68.0); LYMPH # 1.2 (1.2-3.4); LYMPH % 17.9 % (22.0-35.0); MEAN CELL VOLUME 88.2 fl (80.0-105.0); MEAN CORPUSCULAR HEMOGLOBIN 30.4 pg (25.0-35.0); MEAN CORPUSCULAR HGB CONC 34.4 g/dl (31.0-37.0); MONO # 0.7 (0.1-0.6); MONO % 9.9 % (1.0-6.0); WHITE BLOOD COUNT 6.9 10^3/ul (4.5-11.0)
[2016-12-13 06:13] LABS: ALB/GLOB RATIO 1.2 (1.1-1.8); ALKALINE PHOSPHATASE 101 U/L (38-133); ALT/SGPT 24 U/L (7-56); AST/SGOT 27 U/L (15-59); BILIRUBIN,TOTAL 1.3 mg/dL (0.2-1.3); BLOOD UREA NITROGEN 16 mg/dL (7-21); CALCIUM 9.6 mg/dL (8.4-10.5); CARBON DIOXIDE 31 mmol/L (21-33); CHLORIDE 101 mmol/L (95-110); GFR AFRICAN-AMERICAN > 60; GLUCOSE,RANDOM 89 mg/dL (70-110); SODIUM 141 mmol/L (132-148)
[2016-12-13] MEDS: Insulin Reg-HIGH-Coverage SC SCH ×4 (08:15→21:30)
[2016-12-13] MEDS: levETIRAcetam 500 mg/5ml UD cups PO SCH ×2 (10:12→17:30)
[2016-12-13] MEDS: Thiamine 100 mg/ml Inj IM SCH (10:12)
[2016-12-13] MEDS: Insulin Detemir 100 units/ml Vial (Levemir) SC SCH ×2 (10:13→21:30)
--- NOTE | 2016-12-13 12:38 | CP.PCM.PN ---
<Brock Wade - Last Filed: 12/13/16 12:35> Subjective - Date & Time of Evaluation Date of Evaluation: 12/13/16 Time of Evaluation: 12:35 - Subjective Subjective: Neurology Progress Note Pt seen and examined at bedside. 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 Patient had elevated BP at 190/100 and glucose of 321. Today, patient feels well but does complain of weakness and fatigue. Denies CP, SOB, N/V/D, syncope, numbness, and tingling. Objective - Vital Signs/Intake and Output Vital Signs (last 24 hours): Temp Pulse Resp BP Pulse Ox 98.7 F 83 21 140/85 98 12/13/16 07:45 12/13/16 07:45 12/13/16 07:45 12/13/16 07:45 12/13/16 07:45 Intake and Output: 12/13/16 12/13/16 06:59 18:59 Intake Total 540 360 Output Total 750 Balance -210 360 - Medications Medications: Current Medications Alprazolam (Xanax) 0.5 mg PO DAILY CM PRN Reason: Protocol Alprazolam (Xanax) 0.5 mg PO HS PRN; Protocol PRN Reason: Anxiety Aspirin (Aspirin Chewable) 81 mg PO DAILY [facility] Last Admin: 12/13/16 10:11 Dose: 81 mg Atorvastatin Calcium (Lipitor) 40 mg PO DIN [facility] Last Admin: 12/12/16 17:20 Dose: 40 mg Enoxaparin Sodium (Lovenox) 100 mg SC 0600,1800 CM PRN Reason: Protocol Last Admin: 12/13/16 05:29 Dose: 100 mg Gabapentin (Neurontin) 300 mg PO TID CM PRN Reason: Protocol Last Admin: 12/13/16 10:12 Dose: 300 mg Insulin Detemir (Levemir) 20 unit SC Q12 [facility] Last Admin: 12/13/16 10:13 Dose: 20 unit Insulin Human Regular (Humulin R High) 0 units SC ACHS CM PRN Reason: Protocol Last Admin: 12/13/16 08:15 Dose: Not Given Levetiracetam (Keppra) 500 mg PO BID [facility] Last Admin: 12/13/16 10:12 Dose: 500 mg Lorazepam (Ativan) 2 mg IVP Q2 PRN; Protocol PRN Reason: Seizure activity Last Admin: 12/12/16 20:21 Dose: 2 mg Metoprolol Tartrate (Lopressor) 5 mg IVP Q6H PRN PRN Reason: Systolic Blood Pressure Last Admin: 12/09/16 16:57 Dose: 5 mg Metoprolol Tartrate (Lopressor) 25 mg PO BID [facility] Last Admin: 12/13/16 10:11 Dose: 25 mg Pantoprazole Sodium (Protonix Ec Tab) 40 mg PO 0600 [facility] Last Admin: 12/13/16 05:28 Dose: 40 mg Rivaroxaban (Xarelto) 15 mg PO DAILY [facility] PRN Reason: Protocol Last Admin: 12/09/16 11:37 Dose: Not Given Thiamine HCl (Vitamin B1 Inj) 100 mg IM DAILY [facility] Last Admin: 12/13/16 10:12 Dose: 100 mg - Labs Labs: 12/13/16 05:30 12/13/16 05:30 PT 11.2 Seconds (9.9-11.8) 12/12/16 05:20 INR 1.04 (0.93-1.08) 12/12/16 05:20 APTT 22.3 Seconds (23.7-30.8) L 12/09/16 08:10 - Constitutional Appears: Non-toxic, No Acute Distress - Head Exam Head Exam: ATRAUMATIC, NORMAL INSPECTION, NORMOCEPHALIC - Eye Exam Eye Exam: EOMI - Respiratory Exam Respiratory Exam: Clear to Ausculation Bilateral, NORMAL BREATHING PATTERN - Cardiovascular Exam Cardiovascular Exam: RRR, +S1, +S2 - GI/Abdominal Exam GI & Abdominal Exam: Soft, Normal Bowel Sounds. absent: Tenderness - Extremities Exam Extremities Exam: Normal Inspection - Neurological Exam Neurological Exam: Alert, Awake, CN II-XII Intact, Oriented x3 Neuro motor strength exam: Left Upper Extremity: 5, Right Upper Extremity: 5, Left Lower Extremity: 5, Right Lower Extremity: 5 Additional comments: No motor or sensory deficit No pronator drift No dysmetria Toes downgoing - Psychiatric Exam Psychiatric exam: Normal Affect, Normal Mood - Skin Skin Exam: Intact, Normal Color, Warm Assessment and Plan - Assessment and Plan (Free Text) Plan: 66 y/o M with PMH of CAD, CABG in 2010, Afib, right illofemoral vein DVT, CHF, and DM2 presents with seizure from underlying left frontal cystic encephalomalacia provoked by hyperglycemia and possible emboli secondary to atherosclerotic disease and uncontrolled diabetes. Seizure yesterday likely contributed from significantly elevated BP and glucose levels. Repeat Head CT today. Pt is neurologically stable, will continue to monitor. Plan: Continue ASA and Lovenox Head CT Maintain euglycemia Continue Keppra 500 mg BID SBP 130-140 Avoid sedative medications Bhsusanin, PGY-2 <Chapin Love - Last Filed: 12/17/16 11:05> Objective - Vital Signs/Intake and Output Vital Signs (last 24 hours): Temp Pulse Resp BP Pulse Ox 98.7 F 50 L 20 150/99 H 98 12/17/16 08:10 12/17/16 09:56 12/17/16 08:10 12/17/16 09:56 12/17/16 08:10 Intake and Output: 12/17/16 12/17/16 06:59 18:59 Intake Total 120 Output Total 550 Balance -430 - Medications Medications: Current Medications Acetaminophen (Tylenol 325mg Tab) 650 mg PO Q4 PRN PRN Reason: Pain, moderate (4-7) Alprazolam (Xanax) 0.5 mg PO DAILY CM PRN Reason: Protocol Last Admin: 12/17/16 09:55 Dose: 0.5 mg Alprazolam (Xanax) 0.5 mg PO HS PRN; Protocol PRN Reason: Anxiety Last Admin: 12/16/16 22:12 Dose: 0.5 mg Aspirin (Aspirin Chewable) 81 mg PO DAILY [facility] Last Admin: 12/17/16 09:55 Dose: 81 mg Atorvastatin Calcium (Lipitor) 40 mg PO DIN [facility] Last Admin: 12/16/16 17:43 Dose: 40 mg Enoxaparin Sodium (Lovenox) 100 mg SC 0600,1800 CM PRN Reason: Protocol Last Admin: 12/17/16 05:35 Dose: 100 mg Gabapentin (Neurontin) 300 mg PO TID CM PRN Reason: Protocol Last Admin: 12/17/16 09:55 Dose: 300 mg Insulin Detemir (Levemir) 20 unit SC Q12 [facility] Last Admin: 12/16/16 22:13 Dose: 20 unit Insulin Human Regular (Humulin R High) 0 units SC ACHS [facility] PRN Reason: Protocol Last Admin: 12/16/16 23:32 Dose: Not Given Levetiracetam (Keppra) 500 mg PO BID [facility] Last Admin: 12/17/16 09:55 Dose: 500 mg Lorazepam (Ativan) 2 mg IVP Q2 PRN; Protocol PRN Reason: Seizure activity Last Admin: 12/12/16 20:21 Dose: 2 mg Metoprolol Tartrate (Lopressor) 5 mg IVP Q6H PRN PRN Reason: Systolic Blood Pressure Last Admin: 12/09/16 16:57 Dose: 5 mg Metoprolol Tartrate (Lopressor) 25 mg PO BID [facility] Last Admin: 12/17/16 09:56 Dose: 25 mg Pantoprazole Sodium (Protonix Ec Tab) 40 mg PO 0600 [facility] Last Admin: 12/17/16 05:36 Dose: 40 mg Rivaroxaban (Xarelto) 15 mg PO DAILY CM PRN Reason: Protocol Last Admin: 12/09/16 11:37 Dose: Not Given Thiamine HCl (Vitamin B1 Inj) 100 mg IM DAILY [facility] Last Admin: 12/17/16 09:55 Dose: 100 mg - Labs Labs: 12/17/16 07:00 12/17/16 07:00 PT 11.2 Seconds (9.9-11.8) 12/12/16 05:20 INR 1.04 (0.93-1.08) 12/12/16 05:20 APTT 22.3 Seconds (23.7-30.8) L 12/09/16 08:10 Attending/Attestation - Attestation I have personally seen and examined this patient.: Yes I have fully participated in the care of the patient.: Yes I have reviewed all pertinent clinical information, including history, physical exam and plan: Yes
[2016-12-13 14:34] LABS: PH,URINE 6.5 (4.7-8.0); URINE BILIRUBIN NEGATIVE (NEGATIVE); URINE BLOOD NEGATIVE (NEGATIVE); URINE GLUCOSE (UA) NEGATIVE (NEGATIVE); URINE KETONE NEGATIVE (NEGATIVE); URINE LEUKOCYTE ESTERASE NEGATIVE Leu/uL (NEGATIVE); URINE PROTEIN 30 mg/dL (<30 mg/dL)
[2016-12-13 14:35] LABS: URINE APPEARANCE SL CLOUDY (CLEAR); URINE COLOR YELLOW (YELLOW)
[2016-12-13 14:36] LABS: URINE RBC NEGATIVE /hpf (0-2); URINE WBC 0 - 2 /hpf (0-6)
--- NOTE | 2016-12-13 15:40 | CARD ---
APPROVED REPORT EKG Measurement Heart [id number] IN P215 [id number] <Conclusion> Atrial flutter with variable AV block ST & T wave abnormality, consider inferolateral ischemia Abnormal ECG
--- NOTE | 2016-12-13 21:56 | CP.PCM.PN ---
Subjective - Date & Time of Evaluation Date of Evaluation: 12/13/16 Time of Evaluation: 07:55 - Subjective Subjective: Pt s/e bedside. Rapid response was called yesterday at 8P for another seizure. Patient had elevated BP at 190/100 and glucose of 321. Today, he states he is having body aches from the seizure yesterday and is terrified of having another one. He states he has not gotten his xanax since at the hospital. He denies f/ch/n/v/d/sob/cp. Denies any further complaints. Objective - Vital Signs/Intake and Output Vital Signs (last 24 hours): Temp Pulse Resp BP Pulse Ox 98.2 F 72 18 111/78 98 12/13/16 16:16 12/13/16 18:00 12/13/16 16:16 12/13/16 17:29 12/13/16 16:16 Intake and Output: 12/13/16 12/14/16 18:59 06:59 Intake Total 360 780 Output Total 650 Balance 360 130 - Medications Medications: Current Medications Alprazolam (Xanax) 0.5 mg PO DAILY CM PRN Reason: Protocol Last Admin: 12/13/16 14:18 Dose: 0.5 mg Alprazolam (Xanax) 0.5 mg PO HS PRN; Protocol PRN Reason: Anxiety Last Admin: 12/13/16 21:29 Dose: 0.5 mg Aspirin (Aspirin Chewable) 81 mg PO DAILY [facility] Last Admin: 12/13/16 10:11 Dose: 81 mg Atorvastatin Calcium (Lipitor) 40 mg PO DIN [facility] Last Admin: 12/13/16 17:30 Dose: 40 mg Enoxaparin Sodium (Lovenox) 100 mg SC 0600,1800 CM PRN Reason: Protocol Last Admin: 12/13/16 17:30 Dose: 100 mg Gabapentin (Neurontin) 300 mg PO TID CM PRN Reason: Protocol Last Admin: 12/13/16 18:57 Dose: 300 mg Insulin Detemir (Levemir) 20 unit SC Q12 CM Last Admin: 12/13/16 21:30 Dose: 20 unit Insulin Human Regular (Humulin R High) 0 units SC ACHS CM PRN Reason: Protocol Last Admin: 12/13/16 21:30 Dose: 2 units Levetiracetam (Keppra) 500 mg PO BID [facility] Last Admin: 12/13/16 17:30 Dose: 500 mg Lorazepam (Ativan) 2 mg IVP Q2 PRN; Protocol PRN Reason: Seizure activity Last Admin: 12/12/16 20:21 Dose: 2 mg Metoprolol Tartrate (Lopressor) 5 mg IVP Q6H PRN PRN Reason: Systolic Blood Pressure Last Admin: 12/09/16 16:57 Dose: 5 mg Metoprolol Tartrate (Lopressor) 25 mg PO BID [facility] Last Admin: 12/13/16 17:29 Dose: 25 mg Pantoprazole Sodium (Protonix Ec Tab) 40 mg PO 0600 [facility] Last Admin: 12/13/16 05:28 Dose: 40 mg Rivaroxaban (Xarelto) 15 mg PO DAILY [facility] PRN Reason: Protocol Last Admin: 12/09/16 11:37 Dose: Not Given Thiamine HCl (Vitamin B1 Inj) 100 mg IM DAILY [facility] Last Admin: 12/13/16 10:12 Dose: 100 mg - Labs Labs: 12/13/16 05:30 12/13/16 05:30 PT 11.2 Seconds (9.9-11.8) 12/12/16 05:20 INR 1.04 (0.93-1.08) 12/12/16 05:20 APTT 22.3 Seconds (23.7-30.8) L 12/09/16 08:10 - Additional Findings Additional findings: VS as below Constitutional: a&o x 4, nad Head and Neck: neck supple, no jvd, trachea midline, carotid midline, no cervical/head mass Eyes: rosenda, nonicteric sclera, eom intact ENT: auditory acuity grossly intact, throat not congested, no nasal deformity Cardio: Arrhythmia; regular rate, no m/r/g, no carotid bruit, nml s1, s2 Pulm: no accessory muscle use, equal nml breath sounds bilaterally, ctab Abd: s/nt/nd, nbs x 4 q, no palpable masses Derm: no rashes, no ulcers, no lesions Extr: no edema, no cyanosis, no calf tenderness, no lesions, no varicosities Neuro: cn II-XII grossly intact, ue and le 5/5 muscle strength bilaterally, no los ue, le bilaterally and core Assessment and Plan - Assessment and Plan (Free Text) Assessment: 66 year old male with pmh sig for CAD, CABG in 2010, Afib, hx of DVT, and DM who presents to ED complaining of 3 day history of weakness and bilateral hand and face tremor/twitching episodes. Patient is noted to be euvolemic with minimal hypokalemia and elevated bg of 400 plus. When patient brought up to the floor, a rapid response was called on him 2/2 seizure activity. Patient was stabilized and transferred to ICU. Now patient in telemetry. Plan: 1. Seizure activity - Patient had at least 3 witnessed seizures - Neuro c/s: neuroencephalomalacia in addition to hyperglycemia could contribute to seizure activity. Brain MRI: not consistent with hemorrhage after discussion with radiologist. MRA Neck: no significant disease EEG: No seizure activity 12/12/[address] tomorrow, 12/13/16 Continue ASA and Lovenox Continue Keppra 500 mg BID Maintain Euglycemia SBP 130-140 Avoid sedative medications If CT Head negative, neurology will sign off Avoid sedative medications - MRI 12/10 showed possible acute infarct. No focal neurologic deficits appreciated - Patient also had benzos on his UDS, which he abruptly stopped taking - this could contribute to seizure activity Patient did not receive any benzos inpatient since Friday, and seized again last night. Restarted his home Xanax, this should prevent future seizures Advised patient on the importance of not abruptly stopping his home benzos - Ativan 2 q4 - Patient no longer in ICU 2. Generalized weakness - Resolved - Generalized weakness for past 3 days, afebrile on admission - K 3.4, bg 441, other electrolytes normal, replace potassium, continue to monitor - TSH normal - Urine drug screen: positive for benzos - Sputum clx, blood clx, UA, clx: All negative 3. Hx of Atrial fibrillation - EKG in ED showing Atrial Flutter at 98 bpm, non-specific ST/T wave changes - Rate control with Lopressor - Heparin and ASA - Continue to monitor 4. Hx of CAD - Lipid panel - Trending troponins: negative - Statin - Heart healthy diet 5. DM2 - HgA1c - ACHS - ISS-high 6. GI/DVT ppx - Protonix - Heparin SC Dispo: Spoke with nurse from [facility] today. PT/OT Eval pending. Will speak with social work tomorrow, 12/13/[address] patient in [facility] Case dw attending, Dr. Herring
[2016-12-14] MEDS: Enoxaparin 100 mg Syringe SC SCH ×2 (06:14→17:28)
[2016-12-14] MEDS: Pantoprazole 40 mg EC Tab PO SCH (06:14)
[2016-12-14 08:17] LABS: BASO # 0.03 K/mm3 (0.0-2.0); BASO % 0.5 % (0.0-3.0); EOS # 0.2 (0.0-0.7); EOS % 3.3 % (1.5-5.0); GRAN # 4.28 (1.4-6.5); GRAN % 66.4 % (50.0-68.0); HEMATOCRIT 43.6 % (42.0-52.0); LYMPH # 1.3 (1.2-3.4); LYMPH % 19.6 % (22.0-35.0); MEAN CELL VOLUME 88.6 fl (80.0-105.0); MEAN CORPUSCULAR HEMOGLOBIN 30.5 pg (25.0-35.0); MEAN CORPUSCULAR HGB CONC 34.4 g/dl (31.0-37.0); MEAN PLATELET VOLUME 11.5 fl (7.0-11.0); MONO # 0.7 (0.1-0.6); MONO % 10.2 % (1.0-6.0); RED CELL DISTRIBUTION WIDTH 13.9 % (11.5-14.5); WHITE BLOOD COUNT 6.4 10^3/ul (4.5-11.0)
[2016-12-14] MEDS: Insulin Reg-HIGH-Coverage SC SCH ×4 (08:25→22:00)
[2016-12-14 08:31] LABS: ALB/GLOB RATIO 1.3 (1.1-1.8); ALKALINE PHOSPHATASE 102 U/L (38-133); ALT/SGPT 37 U/L (7-56); AST/SGOT 40 U/L (15-59); BILIRUBIN,TOTAL 1.2 mg/dL (0.2-1.3); BLOOD UREA NITROGEN 22 mg/dL (7-21); CALCIUM 9.3 mg/dL (8.4-10.5); CARBON DIOXIDE 26 mmol/L (21-33); CHLORIDE 101 mmol/L (98-107); GFR AFRICAN-AMERICAN > 60; GLUCOSE,RANDOM 163 mg/dL (70-110); POTASSIUM 3.8 mmol/L (3.6-5.0); SODIUM 137 mmol/L (132-148); TOTAL PROTEIN 6.3 g/dL (5.8-8.3)
[2016-12-14] MEDS: Insulin Detemir 100 units/ml Vial (Levemir) SC SCH ×2 (09:30→22:03)
[2016-12-14] MEDS: Thiamine 100 mg/ml Inj IM SCH (09:31)
[2016-12-14] MEDS: levETIRAcetam 500 mg/5ml UD cups PO SCH ×2 (09:38→17:29)
--- NOTE | 2016-12-14 17:07 | CP.PCM.PN ---
Subjective - Date & Time of Evaluation Date of Evaluation: 12/14/16 Time of Evaluation: 07:35 - Subjective Subjective: Pt s/e bedside. His pain has subsided, but is still present. Per nursing, he has not been up and out of bed since his last seizure on . Pt advised to stay on his xanax without interruption. Pt denies f/ch/n/v/d/sob/cp Objective - Vital Signs/Intake and Output Vital Signs (last 24 hours): Temp Pulse Resp BP Pulse Ox 98 F 82 20 148/104 H 96 12/14/16 08:40 12/14/16 09:30 12/14/16 08:40 12/14/16 09:30 12/14/16 08:40 Intake and Output: 12/14/16 12/14/16 06:59 18:59 Intake Total 780 360 Output Total 650 Balance 130 360 - Medications Medications: Current Medications Alprazolam (Xanax) 0.5 mg PO DAILY CM PRN Reason: Protocol Last Admin: 12/14/16 09:38 Dose: 0.5 mg Alprazolam (Xanax) 0.5 mg PO HS PRN; Protocol PRN Reason: Anxiety Last Admin: 12/13/16 21:29 Dose: 0.5 mg Aspirin (Aspirin Chewable) 81 mg PO DAILY [facility] Last Admin: 12/14/16 09:28 Dose: 81 mg Atorvastatin Calcium (Lipitor) 40 mg PO DIN [facility] Last Admin: 12/13/16 17:30 Dose: 40 mg Enoxaparin Sodium (Lovenox) 100 mg SC 0600,1800 CM PRN Reason: Protocol Last Admin: 12/14/16 06:14 Dose: 100 mg Gabapentin (Neurontin) 300 mg PO TID CM PRN Reason: Protocol Last Admin: 12/14/16 13:01 Dose: 300 mg Insulin Detemir (Levemir) 20 unit SC Q12 [facility] Last Admin: 12/14/16 09:30 Dose: 20 unit Insulin Human Regular (Humulin R High) 0 units SC ACHS CM PRN Reason: Protocol Last Admin: 12/14/16 12:57 Dose: 6 units Levetiracetam (Keppra) 500 mg PO BID [facility] Last Admin: 12/14/16 09:38 Dose: 500 mg Lorazepam (Ativan) 2 mg IVP Q2 PRN; Protocol PRN Reason: Seizure activity Last Admin: 12/12/16 20:21 Dose: 2 mg Metoprolol Tartrate (Lopressor) 5 mg IVP Q6H PRN PRN Reason: Systolic Blood Pressure Last Admin: 12/09/16 16:57 Dose: 5 mg Metoprolol Tartrate (Lopressor) 25 mg PO BID [facility] Last Admin: 12/14/16 09:30 Dose: 25 mg Pantoprazole Sodium (Protonix Ec Tab) 40 mg PO 0600 [facility] Last Admin: 12/14/16 06:14 Dose: 40 mg Rivaroxaban (Xarelto) 15 mg PO DAILY [facility] PRN Reason: Protocol Last Admin: 12/09/16 11:37 Dose: Not Given Thiamine HCl (Vitamin B1 Inj) 100 mg IM DAILY [facility] Last Admin: 12/14/16 09:31 Dose: 100 mg - Labs Labs: 12/14/16 08:00 12/14/16 08:00 PT 11.2 Seconds (9.9-11.8) 12/12/16 05:20 INR 1.04 (0.93-1.08) 12/12/16 05:20 APTT 22.3 Seconds (23.7-30.8) L 12/09/16 08:10 - Additional Findings Additional findings: VS as below Constitutional: a&o x 4, nad Head and Neck: neck supple, no jvd, trachea midline, carotid midline, no cervical/head mass Eyes: rosenda, nonicteric sclera, eom intact ENT: auditory acuity grossly intact, throat not congested, no nasal deformity Cardio: Arrhythmia; regular rate, no m/r/g, no carotid bruit, nml s1, s2 Pulm: no accessory muscle use, equal nml breath sounds bilaterally, ctab Abd: s/nt/nd, nbs x 4 q, no palpable masses Derm: no rashes, no ulcers, no lesions Extr: no edema, no cyanosis, no calf tenderness, no lesions, no varicosities Neuro: cn II-XII grossly intact, ue and le 5/5 muscle strength bilaterally, no los ue, le bilaterally and core Assessment and Plan - Assessment and Plan (Free Text) Assessment: 66 year old male with pmh sig for CAD, CABG in 2010, Afib, hx of DVT, and DM who presents to ED complaining of 3 day history of weakness and bilateral hand and face tremor/twitching episodes. Patient is noted to be euvolemic with minimal hypokalemia and elevated bg of 400 plus. When patient brought up to the floor, a rapid response was called on him 2/2 seizure activity. Patient was stabilized and transferred to ICU. Now patient in telemetry. Plan: 1. Seizure activity - Patient had at least 3 witnessed seizures - Neuro c/s: neuroencephalomalacia in addition to hyperglycemia could contribute to seizure activity. Brain MRI: not consistent with hemorrhage after discussion with radiologist. MRA Neck: no significant disease EEG: No seizure activity 12/12/[address] Head: Negative Continue ASA and Lovenox Continue Keppra 500 mg BID Maintain Euglycemia SBP 130-140 Avoid sedative medications Avoid sedative medications - MRI 12/10 showed possible acute infarct. No focal neurologic deficits appreciated - Patient also had benzos on his UDS, which he abruptly stopped taking - this could contribute to seizure activity Patient did not receive any benzos inpatient since Friday, and seized again last night. Restarted his home Xanax, this should prevent future seizures Advised patient on the importance of not abruptly stopping his home benzos - Ativan 2 q4 - Patient no longer in ICU 2. Generalized weakness - Resolved - Generalized weakness for past 3 days, afebrile on admission - K 3.4, bg 441, other electrolytes normal, replace potassium, continue to monitor - TSH normal - Urine drug screen: positive for benzos - Sputum clx, blood clx, UA, clx: All negative 3. Hx of Atrial fibrillation - EKG in ED showing Atrial Flutter at 98 bpm, non-specific ST/T wave changes - Rate control with Lopressor - Heparin and ASA - Continue to monitor 4. Hx of CAD - Lipid panel - Trending troponins: negative - Statin - Heart healthy diet 5. DM2 - HgA1c - ACHS - ISS-high 6. GI/DVT ppx - Protonix - Heparin SC Dispo: Spoke with nurse from [facility] 12/14/16 PT/OT Eval pending. TCU eval pending Case dw attending, Dr. Herring
[2016-12-15] MEDS: Enoxaparin 100 mg Syringe SC SCH (05:34)
[2016-12-15] MEDS: Pantoprazole 40 mg EC Tab PO SCH (05:34)
[2016-12-15] MEDS: Insulin Reg-HIGH-Coverage SC SCH ×4 (09:51→22:00)
[2016-12-15] MEDS: levETIRAcetam 500 mg/5ml UD cups PO SCH ×2 (10:35→17:34)
[2016-12-15] MEDS: Thiamine 100 mg/ml Inj IM SCH (10:36)
[2016-12-15] MEDS: Insulin Detemir 100 units/ml Vial (Levemir) SC SCH ×2 (10:36→21:54)
[2016-12-15 11:13] LABS: ALB/GLOB RATIO 1.3 (1.1-1.8); ALKALINE PHOSPHATASE 105 U/L (38-133); ALT/SGPT 35 U/L (7-56); AST/SGOT 51 U/L (15-59); BILIRUBIN,TOTAL 1.1 mg/dL (0.2-1.3); BLOOD UREA NITROGEN 22 mg/dL (7-21); CALCIUM 9.3 mg/dL (8.4-10.5); CARBON DIOXIDE 28 mmol/L (21-33); CHLORIDE 98 mmol/L (98-107); GFR AFRICAN-AMERICAN > 60; GLUCOSE,RANDOM 286 mg/dL (70-110); MAGNESIUM 1.9 mg/dL (1.7-2.2); POTASSIUM 4.7 mmol/L (3.6-5.0); SODIUM 135 mmol/L (132-148); TOTAL PROTEIN 6.3 g/dL (5.8-8.3)
[2016-12-15 11:41] LABS: BASO # 0.02 K/mm3 (0.0-2.0); BASO % 0.3 % (0.0-3.0); EOS # 0.2 (0.0-0.7); EOS % 2.8 % (1.5-5.0); GRAN # 4.3 (1.4-6.5); HEMATOCRIT 42.4 % (42.0-52.0); LYMPH # 1.3 (1.2-3.4); LYMPH % 20.1 % (22.0-35.0); MEAN CELL VOLUME 89.6 fl (80.0-105.0); MEAN CORPUSCULAR HEMOGLOBIN 30.4 pg (25.0-35.0); MEAN PLATELET VOLUME 11.7 fl (7.0-11.0); MONO # 0.6 (0.1-0.6); MONO % 9.8 % (1.0-6.0); RED CELL DISTRIBUTION WIDTH 13.9 % (11.5-14.5); WHITE BLOOD COUNT 6.4 10^3/ul (4.5-11.0)
--- NOTE | 2016-12-15 14:37 | CP.PCM.PN ---
Subjective - Date & Time of Evaluation Date of Evaluation: 12/15/16 Time of Evaluation: 07:20 - Subjective Subjective: Pt s/e/b. Pt denies any seizure activity since 12/12. Pt states that he is feeling better and is not having any muscle aches. Pt denies f/ch/n/v/d/sob/ cp. No further complaints Objective - Vital Signs/Intake and Output Vital Signs (last 24 hours): Temp Pulse Resp BP Pulse Ox 97.7 F 70 18 130/72 96 12/15/16 07:24 12/15/16 10:35 12/15/16 07:24 12/15/16 10:35 12/15/16 07:24 Intake and Output: 12/15/16 12/15/16 06:59 18:59 Intake Total 875 Balance 875 - Medications Medications: Current Medications Alprazolam (Xanax) 0.5 mg PO DAILY CM PRN Reason: Protocol Last Admin: 12/15/16 10:35 Dose: 0.5 mg Alprazolam (Xanax) 0.5 mg PO HS PRN; Protocol PRN Reason: Anxiety Last Admin: 12/14/16 22:03 Dose: 0.5 mg Aspirin (Aspirin Chewable) 81 mg PO DAILY [facility] Last Admin: 12/15/16 10:34 Dose: 81 mg Atorvastatin Calcium (Lipitor) 40 mg PO DIN [facility] Last Admin: 12/14/16 17:28 Dose: 40 mg Enoxaparin Sodium (Lovenox) 100 mg SC 0600,1800 CM PRN Reason: Protocol Last Admin: 12/15/16 05:34 Dose: 100 mg Gabapentin (Neurontin) 300 mg PO TID CM PRN Reason: Protocol Last Admin: 12/15/16 10:34 Dose: 300 mg Insulin Detemir (Levemir) 20 unit SC Q12 [facility] Last Admin: 12/15/16 10:36 Dose: 20 unit Insulin Human Regular (Humulin R High) 0 units SC ACHS CM PRN Reason: Protocol Last Admin: 12/15/16 12:11 Dose: 7 units Levetiracetam (Keppra) 500 mg PO BID [facility] Last Admin: 12/15/16 10:35 Dose: 500 mg Lorazepam (Ativan) 2 mg IVP Q2 PRN; Protocol PRN Reason: Seizure activity Last Admin: 12/12/16 20:21 Dose: 2 mg Metoprolol Tartrate (Lopressor) 5 mg IVP Q6H PRN PRN Reason: Systolic Blood Pressure Last Admin: 12/09/16 16:57 Dose: 5 mg Metoprolol Tartrate (Lopressor) 25 mg PO BID [facility] Last Admin: 12/15/16 10:35 Dose: 25 mg Pantoprazole Sodium (Protonix Ec Tab) 40 mg PO 0600 [facility] Last Admin: 12/15/16 05:34 Dose: 40 mg Rivaroxaban (Xarelto) 15 mg PO DAILY [facility] PRN Reason: Protocol Last Admin: 12/09/16 11:37 Dose: Not Given Thiamine HCl (Vitamin B1 Inj) 100 mg IM DAILY [facility] Last Admin: 12/15/16 10:36 Dose: 100 mg - Labs Labs: 12/15/16 11:20 12/15/16 10:45 PT 11.2 Seconds (9.9-11.8) 12/12/16 05:20 INR 1.04 (0.93-1.08) 12/12/16 05:20 APTT 22.3 Seconds (23.7-30.8) L 12/09/16 08:10 - Additional Findings Additional findings: VS as below Constitutional: a&o x 4, nad Head and Neck: neck supple, no jvd, trachea midline, carotid midline, no cervical/head mass Eyes: rosenda, nonicteric sclera, eom intact ENT: auditory acuity grossly intact, throat not congested, no nasal deformity Cardio: Arrhythmia; regular rate, no m/r/g, no carotid bruit, nml s1, s2 Pulm: no accessory muscle use, equal nml breath sounds bilaterally, ctab Abd: s/nt/nd, nbs x 4 q, no palpable masses Derm: no rashes, no ulcers, no lesions Extr: no edema, no cyanosis, no calf tenderness, no lesions, no varicosities Neuro: cn II-XII grossly intact, ue and le 5/5 muscle strength bilaterally, no los ue, le bilaterally and core Assessment and Plan - Assessment and Plan (Free Text) Assessment: 66 year old male with pmh sig for CAD, CABG in 2010, Afib, hx of DVT, and DM who presents to ED complaining of 3 day history of weakness and bilateral hand and face tremor/twitching episodes. Patient is noted to be euvolemic with minimal hypokalemia and elevated bg of 400 plus. When patient brought up to the floor, a rapid response was called on him 2/2 seizure activity. Patient was stabilized and transferred to ICU. Now patient in telemetry. Plan: 1. Seizure activity - Patient had at least 3 witnessed seizures - Neuro c/s: neuroencephalomalacia in addition to hyperglycemia could contribute to seizure activity. Brain MRI: not consistent with hemorrhage after discussion with radiologist. MRA Neck: no significant disease EEG: No seizure activity 12/12/[address] Head: Negative Continue ASA and Lovenox Continue Keppra 500 mg BID Maintain Euglycemia SBP 130-140 Avoid sedative medications Avoid sedative medications - MRI 12/10 showed possible acute infarct. No focal neurologic deficits appreciated - Patient also had benzos on his UDS, which he abruptly stopped taking - this could contribute to seizure activity Patient did not receive any benzos inpatient since Friday, and seized again last night. Restarted his home Xanax, this should prevent future seizures Advised patient on the importance of not abruptly stopping his home benzos - Ativan 2 q4 - Patient no longer in ICU 2. Generalized weakness - Resolved - Generalized weakness for past 3 days, afebrile on admission - K 3.4, bg 441, other electrolytes normal, replace potassium, continue to monitor - TSH normal - Urine drug screen: positive for benzos - Sputum clx, blood clx, UA, clx: All negative 3. Hx of Atrial fibrillation - EKG in ED showing Atrial Flutter at 98 bpm, non-specific ST/T wave changes - Rate control with Lopressor - Heparin and ASA - Continue to monitor 4. Hx of CAD - Lipid panel - Trending troponins: negative - Statin - Heart healthy diet 5. DM2 - HgA1c - ACHS - ISS-high 6. GI/DVT ppx - Protonix - Heparin SC Dispo: Spoke with nurse from [facility] 12/14/16 PT/OT Eval pending. TCU eval pending. If accepted into TCU, august d/c to TCU Tomorrow. Case dw attending, Dr. Dailey
[2016-12-16] MEDS: Enoxaparin 100 mg Syringe SC SCH ×2 (05:14→17:44)
[2016-12-16] MEDS: Pantoprazole 40 mg EC Tab PO SCH (05:14)
[2016-12-16 06:14] LABS: BASO # 0.01 K/mm3 (0.0-2.0); BASO % 0.2 % (0.0-3.0); EOS # 0.1 (0.0-0.7); GRAN # 4.51 (1.4-6.5); GRAN % 69.2 % (50.0-68.0); LYMPH # 1.2 (1.2-3.4); LYMPH % 18.9 % (22.0-35.0); MEAN CELL VOLUME 88.1 fl (80.0-105.0); MEAN CORPUSCULAR HEMOGLOBIN 30.5 pg (25.0-35.0); MEAN CORPUSCULAR HGB CONC 34.7 g/dl (31.0-37.0); MEAN PLATELET VOLUME 11.4 fl (7.0-11.0); MONO # 0.6 (0.1-0.6); MONO % 9.7 % (1.0-6.0); RED CELL DISTRIBUTION WIDTH 13.8 % (11.5-14.5); WHITE BLOOD COUNT 6.5 10^3/ul (4.5-11.0)
[2016-12-16 06:47] LABS: ALB/GLOB RATIO 1.1 (1.1-1.8); ALKALINE PHOSPHATASE 108 U/L (38-133); ALT/SGPT 35 U/L (7-56); AST/SGOT 40 U/L (15-59); BILIRUBIN,TOTAL 1.2 mg/dL (0.2-1.3); BLOOD UREA NITROGEN 21 mg/dL (7-21); CALCIUM 9.6 mg/dL (8.4-10.5); CARBON DIOXIDE 27 mmol/L (21-33); CHLORIDE 100 mmol/L (95-110); GFR AFRICAN-AMERICAN > 60; GLUCOSE,RANDOM 190 mg/dL (70-110); POTASSIUM 4.3 mmol/L (3.6-5.0); SODIUM 137 mmol/L (132-148); TOTAL PROTEIN 6.7 g/dL (5.8-8.3)
[2016-12-16] MEDS: Insulin Reg-HIGH-Coverage SC SCH ×4 (08:07→23:32)
[2016-12-16] MEDS: levETIRAcetam 500 mg/5ml UD cups PO SCH ×2 (09:54→17:43)
[2016-12-16] MEDS: Thiamine 100 mg/ml Inj IM SCH (09:54)
[2016-12-16] MEDS: Insulin Detemir 100 units/ml Vial (Levemir) SC SCH ×2 (09:56→22:13)
--- NOTE | 2016-12-16 10:39 | CP.PCM.PN ---
Subjective - Date & Time of Evaluation Date of Evaluation: 12/16/16 Time of Evaluation: 09:30 - Subjective Subjective: Patient seen and examined at bedside. No acute overnight events. Patient denies any seizure like activity. C/o chronic gait dysfunction. Denies f/c/cp/sob/ abdominal pain/n/v/diarrhea/constipation. Objective - Vital Signs/Intake and Output Vital Signs (last 24 hours): Temp Pulse Resp BP Pulse Ox 98.6 F 70 20 136/90 97 12/16/16 07:53 12/16/16 09:55 12/16/16 07:53 12/16/16 09:55 12/16/16 07:53 Intake and Output: 12/16/16 12/16/16 06:59 18:59 Intake Total 480 Output Total 550 Balance -550 480 - Medications Medications: Current Medications Alprazolam (Xanax) 0.5 mg PO DAILY [facility] PRN Reason: Protocol Last Admin: 12/16/16 09:54 Dose: 0.5 mg Alprazolam (Xanax) 0.5 mg PO HS PRN; Protocol PRN Reason: Anxiety Last Admin: 12/15/16 21:55 Dose: 0.5 mg Aspirin (Aspirin Chewable) 81 mg PO DAILY [facility] Last Admin: 12/16/16 09:55 Dose: 81 mg Atorvastatin Calcium (Lipitor) 40 mg PO DIN [facility] Last Admin: 12/15/16 17:34 Dose: 40 mg Enoxaparin Sodium (Lovenox) 100 mg SC 0600,1800 CM PRN Reason: Protocol Last Admin: 12/16/16 05:14 Dose: 100 mg Gabapentin (Neurontin) 300 mg PO TID CM PRN Reason: Protocol Last Admin: 12/16/16 09:54 Dose: 300 mg Insulin Detemir (Levemir) 20 unit SC Q12 [facility] Last Admin: 12/16/16 09:56 Dose: 20 unit Insulin Human Regular (Humulin R High) 0 units SC ACHS CM PRN Reason: Protocol Last Admin: 12/16/16 08:07 Dose: 2 units Levetiracetam (Keppra) 500 mg PO BID [facility] Last Admin: 12/16/16 09:54 Dose: 500 mg Lorazepam (Ativan) 2 mg IVP Q2 PRN; Protocol PRN Reason: Seizure activity Last Admin: 12/12/16 20:21 Dose: 2 mg Metoprolol Tartrate (Lopressor) 5 mg IVP Q6H PRN PRN Reason: Systolic Blood Pressure Last Admin: 12/09/16 16:57 Dose: 5 mg Metoprolol Tartrate (Lopressor) 25 mg PO BID [facility] Last Admin: 12/16/16 09:55 Dose: 25 mg Pantoprazole Sodium (Protonix Ec Tab) 40 mg PO 0600 [facility] Last Admin: 12/16/16 05:14 Dose: 40 mg Rivaroxaban (Xarelto) 15 mg PO DAILY [facility] PRN Reason: Protocol Last Admin: 12/09/16 11:37 Dose: Not Given Thiamine HCl (Vitamin B1 Inj) 100 mg IM DAILY [facility] Last Admin: 12/16/16 09:54 Dose: 100 mg - Labs Labs: 12/16/16 05:20 12/16/16 05:20 PT 11.2 Seconds (9.9-11.8) 12/12/16 05:20 INR 1.04 (0.93-1.08) 12/12/16 05:20 APTT 22.3 Seconds (23.7-30.8) L 12/09/16 08:10 - Additional Findings Additional findings: Constitutional: a&o x 4, nad Head and Neck: neck supple, no jvd, trachea midline, carotid midline, no cervical/head mass Eyes: rosenda, nonicteric sclera, eom intact ENT: auditory acuity grossly intact, throat not congested, no nasal deformity Cardio: Arrhythmia; regular rate, no m/r/g, no carotid bruit, nml s1, s2 Pulm: no accessory muscle use, equal nml breath sounds bilaterally, ctab Abd: s/nt/nd, nbs x 4 q, no palpable masses Derm: venous dermatitis right lower extermity, scar noted on left LE 2/2 from graft surgery, no ulcers, no lesions Extr: no edema, no cyanosis, no calf tenderness, no lesions, no varicosities Neuro: cn II-XII grossly intact, ue and le 5/5 muscle strength bilaterally, no los ue, le bilaterally and core Assessment and Plan - Assessment and Plan (Free Text) Assessment: 66 year old male with pmh sig for CAD, CABG in 2010, Afib, hx of DVT on xarelto , and DM who was admitted to the hospital for evaluation and treatment of weakness and bilateral hand and face tremor/twitching episodes. A rapid response was called on him 2/2 seizure activity. Patient was stabilized and transferred to ICU. Now patient in telemetry. Plan: Stroke - Neuro c/s: neuroencephalomalacia in addition to hyperglycemia could contribute to seizure activity. - Brain MRI: not consistent with hemorrhage after discussion with radiologist ; MRI 12/10 showed possible acute infarct right frontal lobe No focal neurologic deficits appreciated - PT and OT, OOB encouraged - Patient on aspirin and lipitor - Patient is on pureed diet for dysphagia as per swallow evaluation Seizure - Patient had at least 3 witnessed seizures - MRA Neck: no significant disease - EEG: No seizure activity 12/12/16 - Repeated CT Head: Negative - Continue ASA and Lovenox therapeutic dose - Continue Keppra 500 mg BID - Maintain Euglycemia - SBP 130-140 - Avoid sedative medications - Patient also had benzos on his UDS, which he abruptly stopped taking - this could contribute to seizure activity - Advised patient on the importance of not abruptly stopping his home benzos - Ativan 2 q4 prn Gait dysfunction; History of frequent falls; Deconditioned - PT evaluation and treatment - assess the need for wheelchair Reported History of Symptoms of LE Claudication - will perform ANNIE Hx of Atrial fibrillation - Rate control with Lopressor - Therapeutic Lovenox and ASA Hx of CAD - Statin - Heart healthy diet DM2, details- uncontrolled HgBA1c 12.7 - ACHS - ISS-high - diabetic education GI/DVT ppx - Protonix - lovenox Hx of Anxiety - Xanax prn Discharge Planning - follow up social science teacher - TCU eval pending. If accepted into TCU, august d/c to TCU Tomorrow - d/c varum - continue xanax
[2016-12-17] MEDS: Enoxaparin 100 mg Syringe SC SCH ×2 (05:35→18:23)
[2016-12-17] MEDS: Pantoprazole 40 mg EC Tab PO SCH (05:36)
[2016-12-17 07:35] VITALS: RESP 20
[2016-12-17 07:41] LABS: BASO # 0.02 K/mm3 (0.0-2.0); BASO % 0.3 % (0.0-3.0); EOS # 0.2 (0.0-0.7); EOS % 2.3 % (1.5-5.0); GRAN # 4.89 (1.4-6.5); GRAN % 65.1 % (50.0-68.0); LYMPH # 1.7 (1.2-3.4); LYMPH % 22.2 % (22.0-35.0); MEAN CELL VOLUME 89.1 fl (80.0-105.0); MEAN CORPUSCULAR HEMOGLOBIN 30.4 pg (25.0-35.0); MEAN CORPUSCULAR HGB CONC 34.1 g/dl (31.0-37.0); MEAN PLATELET VOLUME 11.5 fl (7.0-11.0); MONO # 0.8 (0.1-0.6); MONO % 10.1 % (1.0-6.0); RED CELL DISTRIBUTION WIDTH 13.8 % (11.5-14.5); WHITE BLOOD COUNT 7.5 10^3/ul (4.5-11.0)
[2016-12-17 07:53] LABS: ALB/GLOB RATIO 1.1 (1.1-1.8); ALKALINE PHOSPHATASE 112 U/L (38-133); ALT/SGPT 35 U/L (7-56); AST/SGOT 42 U/L (15-59); BLOOD UREA NITROGEN 22 mg/dL (7-21); CALCIUM 9.5 mg/dL (8.4-10.5); CARBON DIOXIDE 31 mmol/L (21-33); CHLORIDE 98 mmol/L (95-110); GFR AFRICAN-AMERICAN > 60; GLUCOSE,RANDOM 130 mg/dL (70-110); POTASSIUM 4.3 mmol/L (3.6-5.0); SODIUM 139 mmol/L (132-148); TOTAL PROTEIN 6.8 g/dL (5.8-8.3)
[2016-12-17] MEDS: Insulin Reg-HIGH-Coverage SC SCH ×4 (08:04→22:00)
[2016-12-17] MEDS: Thiamine 100 mg/ml Inj IM SCH (09:55)
[2016-12-17] MEDS: levETIRAcetam 500 mg/5ml UD cups PO SCH ×2 (09:55→18:24)
[2016-12-17] MEDS: Insulin Detemir 100 units/ml Vial (Levemir) SC SCH ×2 (09:55→21:59)
--- NOTE | 2016-12-17 10:59 | CP.PCM.PN ---
Subjective - Date & Time of Evaluation Date of Evaluation: 12/17/16 Time of Evaluation: 07:15 - Subjective Subjective: Patient seen and examined at bedside. No acute overnight events. Patient denies any seizure like activity. States that he is experiencing mild intermittent right lower extremity discomfort which is chronic in nature associated with his chronic gait dysfunction. Denies f/c/cp/sob/abdominal pain/n/v/diarrhea/ constipation. Objective - Vital Signs/Intake and Output Vital Signs (last 24 hours): Temp Pulse Resp BP Pulse Ox 98.7 F 50 L 20 150/99 H 98 12/17/16 08:10 12/17/16 09:56 12/17/16 08:10 12/17/16 09:56 12/17/16 08:10 Intake and Output: 12/17/16 12/17/16 06:59 18:59 Intake Total 120 Output Total 550 Balance -430 - Medications Medications: Current Medications Alprazolam (Xanax) 0.5 mg PO DAILY CM PRN Reason: Protocol Last Admin: 12/17/16 09:55 Dose: 0.5 mg Alprazolam (Xanax) 0.5 mg PO HS PRN; Protocol PRN Reason: Anxiety Last Admin: 12/16/16 22:12 Dose: 0.5 mg Aspirin (Aspirin Chewable) 81 mg PO DAILY [facility] Last Admin: 12/17/16 09:55 Dose: 81 mg Atorvastatin Calcium (Lipitor) 40 mg PO DIN [facility] Last Admin: 12/16/16 17:43 Dose: 40 mg Enoxaparin Sodium (Lovenox) 100 mg SC 0600,1800 CM PRN Reason: Protocol Last Admin: 12/17/16 05:35 Dose: 100 mg Gabapentin (Neurontin) 300 mg PO TID CM PRN Reason: Protocol Last Admin: 12/17/16 09:55 Dose: 300 mg Insulin Detemir (Levemir) 20 unit SC Q12 [facility] Last Admin: 12/16/16 22:13 Dose: 20 unit Insulin Human Regular (Humulin R High) 0 units SC ACHS CM PRN Reason: Protocol Last Admin: 12/16/16 23:32 Dose: Not Given Levetiracetam (Keppra) 500 mg PO BID [facility] Last Admin: 12/17/16 09:55 Dose: 500 mg Lorazepam (Ativan) 2 mg IVP Q2 PRN; Protocol PRN Reason: Seizure activity Last Admin: 12/12/16 20:21 Dose: 2 mg Metoprolol Tartrate (Lopressor) 5 mg IVP Q6H PRN PRN Reason: Systolic Blood Pressure Last Admin: 12/09/16 16:57 Dose: 5 mg Metoprolol Tartrate (Lopressor) 25 mg PO BID [facility] Last Admin: 12/17/16 09:56 Dose: 25 mg Pantoprazole Sodium (Protonix Ec Tab) 40 mg PO 0600 [facility] Last Admin: 12/17/16 05:36 Dose: 40 mg Rivaroxaban (Xarelto) 15 mg PO DAILY [facility] PRN Reason: Protocol Last Admin: 12/09/16 11:37 Dose: Not Given Thiamine HCl (Vitamin B1 Inj) 100 mg IM DAILY [facility] Last Admin: 12/17/16 09:55 Dose: 100 mg - Labs Labs: 12/17/16 07:00 12/17/16 07:00 PT 11.2 Seconds (9.9-11.8) 12/12/16 05:20 INR 1.04 (0.93-1.08) 12/12/16 05:20 APTT 22.3 Seconds (23.7-30.8) L 12/09/16 08:10 - Additional Findings Additional findings: Constitutional: a&o x 4, nad Head and Neck: neck supple, no jvd, trachea midline, carotid midline, no cervical/head mass Eyes: rosenda, nonicteric sclera, eom intact ENT: auditory acuity grossly intact, throat not congested, no nasal deformity Cardio: Arrhythmia; regular rate, no m/r/g, no carotid bruit, nml s1, s2 Pulm: no accessory muscle use, equal nml breath sounds bilaterally, ctab Abd: s/nt/nd, nbs x 4 q, no palpable masses Derm: venous dermatitis right lower extermity, scar noted on left LE 2/2 from graft surgery, no ulcers, no lesions Extr: no edema, no cyanosis, no calf tenderness, no lesions, no varicosities Neuro: cn II-XII grossly intact, ue and le 5/5 muscle strength bilaterally, no los ue, le bilaterally and core Assessment and Plan - Assessment and Plan (Free Text) Assessment: 66 year old male with pmh sig for CAD, CABG in 2010, Afib, hx of DVT on xarelto , and DM who was admitted to the hospital for evaluation and treatment of weakness and bilateral hand and face tremor/twitching episodes. A rapid response was called on him 2/2 seizure activity. Patient was stabilized and transferred to ICU. Now patient in telemetry. Stroke - Neuro c/s: neuroencephalomalacia in addition to hyperglycemia could contribute to seizure activity. - Brain MRI: not consistent with hemorrhage after discussion with radiologist ; MRI 12/10 showed possible acute infarct right frontal lobe No focal neurologic deficits appreciated - PT and OT, OOB encouraged - Patient on aspirin and lipitor - Patient is on pureed diet for dysphagia as per swallow evaluation Seizure - Patient had at least 3 witnessed seizures - MRA Neck: no significant disease - EEG: No seizure activity 12/12/16 - Repeated CT Head: Negative - Continue ASA and Lovenox therapeutic dose - Continue Keppra 500 mg BID - Maintain Euglycemia - SBP 130-140 - Avoid sedative medications - Patient also had benzos on his UDS, which he abruptly stopped taking - this could contribute to seizure activity - Advised patient on the importance of not abruptly stopping his home benzos - Ativan 2 q4 prn Gait dysfunction; History of frequent falls; Deconditioned - PT evaluation and treatment pending - assess the need for wheelchair Reported History of Symptoms of LE Claudication - will perform ANNIE - Tylenol PRN Hx of Atrial fibrillation - Rate control with Lopressor - Therapeutic Lovenox and ASA Hx of CAD - Statin - Heart healthy diet DM2, details- uncontrolled HgBA1c 12.7 - ACHS - ISS-high - diabetic education GI/DVT ppx - Protonix - lovenox Hx of Anxiety - Xanax prn Discharge Planning - follow up socially responsible investment adviser regarding placement into outpatient rehab center - Patient may be accepted into TCU - continue xanax patient case seen, discussed with, and approved by Dr. Herring.
[2016-12-18] MEDS: Enoxaparin 100 mg Syringe SC SCH ×2 (05:33→17:42)
[2016-12-18] MEDS: Pantoprazole 40 mg EC Tab PO SCH (05:34)
[2016-12-18 06:52] LABS: BASO # 0.01 K/mm3 (0.0-2.0); BASO % 0.1 % (0.0-3.0); EOS # 0.2 (0.0-0.7); EOS % 2.2 % (1.5-5.0); GRAN # 4.57 (1.4-6.5); GRAN % 68.2 % (50.0-68.0); HEMATOCRIT 41.8 % (42.0-52.0); LYMPH # 1.4 (1.2-3.4); LYMPH % 20.9 % (22.0-35.0); MEAN CELL VOLUME 88.7 fl (80.0-105.0); MEAN CORPUSCULAR HEMOGLOBIN 30.4 pg (25.0-35.0); MEAN CORPUSCULAR HGB CONC 34.2 g/dl (31.0-37.0); MEAN PLATELET VOLUME 11.5 fl (7.0-11.0); MONO # 0.6 (0.1-0.6); MONO % 8.6 % (1.0-6.0); RED CELL DISTRIBUTION WIDTH 13.8 % (11.5-14.5); WHITE BLOOD COUNT 6.7 10^3/ul (4.5-11.0)
[2016-12-18 07:30] LABS: ALB/GLOB RATIO 1.3 (1.1-1.8); ALKALINE PHOSPHATASE 107 U/L (38-133); ALT/SGPT 41 U/L (7-56); AST/SGOT 31 U/L (15-59); BILIRUBIN,TOTAL 0.9 mg/dL (0.2-1.3); BLOOD UREA NITROGEN 24 mg/dL (7-21); CARBON DIOXIDE 27 mmol/L (21-33); CHLORIDE 102 mmol/L (98-107); GFR AFRICAN-AMERICAN > 60; GLUCOSE,RANDOM 177 mg/dL (70-110); POTASSIUM 4.3 mmol/L (3.6-5.0); SODIUM 137 mmol/L (132-148); TOTAL PROTEIN 6.3 g/dL (5.8-8.3)
[2016-12-18] MEDS: Insulin Reg-HIGH-Coverage SC SCH ×3 (08:44→17:39)
[2016-12-18] MEDS: levETIRAcetam 500 mg/5ml UD cups PO SCH ×2 (09:14→17:41)
[2016-12-18] MEDS: Thiamine 100 mg/ml Inj IM SCH (09:15)
[2016-12-18] MEDS: Insulin Detemir 100 units/ml Vial (Levemir) SC SCH (09:15)
--- NOTE | 2016-12-18 09:19 | CP.PCM.PN ---
Subjective - Date & Time of Evaluation Date of Evaluation: 12/18/16 - Subjective Subjective: Patient seen and examined at bedside. No acute overnight events. Patient denies any seizure like activity. States that he is experiencing mild intermittent right lower extremity discomfort which is chronic in nature associated with his chronic gait dysfunction. Denies f/c/cp/sob/abdominal pain/n/v/diarrhea/ constipation. Objective - Vital Signs/Intake and Output Vital Signs (last 24 hours): Temp Pulse Resp BP Pulse Ox 98.3 F 55 L 20 127/87 98 12/18/16 06:00 12/18/16 06:00 12/18/16 06:00 12/18/16 06:00 12/18/16 06:00 Intake and Output: 12/18/16 12/18/16 06:59 18:59 Intake Total 300 Output Total 950 Balance -650 - Medications Medications: Current Medications Acetaminophen (Tylenol 325mg Tab) 650 mg PO Q4 PRN PRN Reason: Pain, moderate (4-7) Last Admin: 12/17/16 11:25 Dose: 650 mg Alprazolam (Xanax) 0.5 mg PO DAILY CM PRN Reason: Protocol Last Admin: 12/17/16 09:55 Dose: 0.5 mg Alprazolam (Xanax) 0.5 mg PO HS PRN; Protocol PRN Reason: Anxiety Last Admin: 12/17/16 22:03 Dose: 0.5 mg Aspirin (Aspirin Chewable) 81 mg PO DAILY [facility] Last Admin: 12/17/16 09:55 Dose: 81 mg Atorvastatin Calcium (Lipitor) 40 mg PO DIN [facility] Last Admin: 12/17/16 18:25 Dose: 40 mg Enoxaparin Sodium (Lovenox) 100 mg SC 0600,1800 CM PRN Reason: Protocol Last Admin: 12/18/16 05:33 Dose: 100 mg Gabapentin (Neurontin) 300 mg PO TID CM PRN Reason: Protocol Last Admin: 12/17/16 18:25 Dose: 300 mg Insulin Detemir (Levemir) 20 unit SC Q12 [facility] Last Admin: 12/17/16 21:59 Dose: 20 unit Insulin Human Regular (Humulin R High) 0 units SC ACHS CM PRN Reason: Protocol Last Admin: 12/18/16 08:44 Dose: 2 units Levetiracetam (Keppra) 500 mg PO BID [facility] Last Admin: 12/17/16 18:24 Dose: 500 mg Lorazepam (Ativan) 2 mg IVP Q2 PRN; Protocol PRN Reason: Seizure activity Last Admin: 12/12/16 20:21 Dose: 2 mg Metoprolol Tartrate (Lopressor) 5 mg IVP Q6H PRN PRN Reason: Systolic Blood Pressure Last Admin: 12/09/16 16:57 Dose: 5 mg Metoprolol Tartrate (Lopressor) 25 mg PO BID [facility] Last Admin: 12/17/16 18:25 Dose: 25 mg Pantoprazole Sodium (Protonix Ec Tab) 40 mg PO 0600 [facility] Last Admin: 12/18/16 05:34 Dose: 40 mg Rivaroxaban (Xarelto) 15 mg PO DAILY [facility] PRN Reason: Protocol Last Admin: 12/09/16 11:37 Dose: Not Given Thiamine HCl (Vitamin B1 Inj) 100 mg IM DAILY [facility] Last Admin: 12/17/16 09:55 Dose: 100 mg - Labs Labs: 12/18/16 06:00 12/18/16 06:00 PT 11.2 Seconds (9.9-11.8) 12/12/16 05:20 INR 1.04 (0.93-1.08) 12/12/16 05:20 APTT 22.3 Seconds (23.7-30.8) L 12/09/16 08:10 - Additional Findings Additional findings: Constitutional: a&o x 4, nad Head and Neck: neck supple, no jvd, trachea midline, carotid midline, no cervical/head mass Eyes: rosenda, nonicteric sclera, eom intact ENT: auditory acuity grossly intact, throat not congested, no nasal deformity Cardio: Arrhythmia; regular rate, no m/r/g, no carotid bruit, nml s1, s2 Pulm: no accessory muscle use, equal nml breath sounds bilaterally, ctab Abd: s/nt/nd, nbs x 4 q, no palpable masses Derm: venous dermatitis right lower extermity, scar noted on left LE 2/2 from graft surgery, no ulcers, no lesions Extr: no edema, no cyanosis, no calf tenderness, no lesions, no varicosities Neuro: cn II-XII grossly intact, ue and le 5/5 muscle strength bilaterally, no los ue, le bilaterally and core Assessment and Plan - Assessment and Plan (Free Text) Assessment: 6 year old male with pmh sig for CAD, CABG in 2010, Afib, hx of DVT on xarelto, and DM who was admitted to the hospital for evaluation and treatment of weakness and bilateral hand and face tremor/twitching episodes. A rapid response was called on him 2/2 seizure activity. Patient was stabilized and transferred to ICU. Now patient in telemetry. Stroke - Neuro c/s: neuroencephalomalacia in addition to hyperglycemia could contribute to seizure activity. - Brain MRI: not consistent with hemorrhage after discussion with radiologist ; MRI 12/10 showed possible acute infarct right frontal lobe No focal neurologic deficits appreciated - PT and OT, OOB encouraged - Patient on aspirin and lipitor - Patient is on pureed diet for dysphagia as per swallow evaluation Seizure - Patient had at least 3 witnessed seizures - MRA Neck: no significant disease - EEG: No seizure activity 12/12/16 - Repeated CT Head: Negative - Continue ASA and Lovenox therapeutic dose - Continue Keppra 500 mg BID - Maintain Euglycemia - SBP 130-140 - Avoid sedative medications - Patient also had benzos on his UDS, which he abruptly stopped taking - this could contribute to seizure activity - Advised patient on the importance of not abruptly stopping his home benzos - Ativan 2 q4 prn Gait dysfunction; History of frequent falls; Deconditioned - PT evaluation and treatment pending - assess the need for wheelchair Reported History of Symptoms of LE Claudication - will perform ANNIE - Tylenol PRN Hx of Atrial fibrillation - Rate control with Lopressor - Therapeutic Lovenox and ASA Hx of CAD - Statin - Heart healthy diet DM2, details- uncontrolled HgBA1c 12.7 - ACHS - ISS-high - diabetic education GI/DVT ppx - Protonix - lovenox Hx of Anxiety - Xanax prn Discharge Planning - follow up social services technician regarding placement into outpatient rehab center - Patient may be accepted into TCU - continue xanax patient case discussed with and approved by Dr. Dailey.
--- NOTE | 2016-12-18 14:54 | CP.PCM.DIS ---
Provider - Provider Date of Admission: 12/09/16 15:39 Attending physician: Francesco Herring MD Primary care physician: NO PRIMARY CARE PROVIDER Time Spent in preparation of Discharge (in minutes): 30 Hospital Course - Lab Results Lab Results: Most Recent Lab Values WBC 6.7 10^3/ul (4.5-11.0) 12/18/16 06:00 RBC 4.71 10^6/uL (3.5-6.1) 12/18/16 06:00 Hgb 14.3 g/dL (14.0-18.0) 12/18/16 06:00 Hct 41.8 % (42.0-52.0) L 12/18/16 06:00 MCV 88.7 fl (80.0-105.0) 12/18/16 06:00 MCH 30.4 pg (25.0-35.0) 12/18/16 06:00 MCHC 34.2 g/dl (31.0-37.0) 12/18/16 06:00 RDW 13.8 % (11.5-14.5) 12/18/16 06:00 Plt Count 160 10^3/uL (120.0-450.0) 12/18/16 06:00 MPV 11.5 fl (7.0-11.0) H 12/18/16 06:00 Gran % 68.2 % (50.0-68.0) H 12/18/16 06:00 Lymph % (Auto) 20.9 % (22.0-35.0) L 12/18/16 06:00 Hartley % (Auto) 8.6 % (1.0-6.0) H 12/18/16 06:00 Eos % (Auto) 2.2 % (1.5-5.0) 12/18/16 06:00 Baso % (Auto) 0.1 % (0.0-3.0) 12/18/16 06:00 Gran # 4.57 (1.4-6.5) 12/18/16 06:00 Lymph # 1.4 (1.2-3.4) 12/18/16 06:00 Hartley # 0.6 (0.1-0.6) 12/18/16 06:00 Eos # 0.2 (0.0-0.7) 12/18/16 06:00 Baso # 0.01 K/mm3 (0.0-2.0) 12/18/16 06:00 Corrected WBC (Man) Cancelled 12/10/16 06:00 Neutrophils % (Manual) Cancelled 12/10/16 06:00 Band Neutrophils % Cancelled 12/10/16 06:00 Lymphocytes % (Manual) Cancelled 12/10/16 06:00 Atypical Lymphs % Cancelled 12/10/16 06:00 Monocytes % (Manual) Cancelled 12/10/16 06:00 Eosinophils % (Manual) Cancelled 12/10/16 06:00 Basophils % (Manual) Cancelled 12/10/16 06:00 Metamyelocytes % Cancelled 12/10/16 06:00 Myelocytes % Cancelled 12/10/16 06:00 Promyelocytes % Cancelled 12/10/16 06:00 Nucleated RBC % Cancelled 12/10/16 06:00 Hypersegmented Polys Cancelled 12/10/16 06:00 Immature Lymphocytes Cancelled 12/10/16 06:00 Blast Cells Cancelled 12/10/16 06:00 Smudge Cells Cancelled 12/10/16 06:00 Toxic Granulation Cancelled 12/10/16 06:00 Dohle Bodies Cancelled 12/10/16 06:00 Jorge Rods Cancelled 12/10/16 06:00 Platelet Evaluation Cancelled 12/10/16 06:00 Plt Clumps, EDTA Cancelled 12/10/16 06:00 Large Platelets Cancelled 12/10/16 06:00 Giant Platelets Cancelled 12/10/16 06:00 Polychromasia Cancelled 12/10/16 06:00 Hypochromasia Cancelled 12/10/16 06:00 Hyperchromasia Cancelled 12/10/16 06:00 Poikilocytosis (manual Cancelled 12/10/16 06:00 Basophilic Stippling Cancelled 12/10/16 06:00 Anisocytosis (manual) Cancelled 12/10/16 06:00 Microcytosis (manual) Cancelled 12/10/16 06:00 Macrocytosis (manual) Cancelled 12/10/16 06:00 Spherocytes Cancelled 12/10/16 06:00 Sickle Cells Cancelled 12/10/16 06:00 Target Cells Cancelled 12/10/16 06:00 Tear Drop Cells Cancelled 12/10/16 06:00 Ovalocytes Cancelled 12/10/16 06:00 Stomatocytes Cancelled 12/10/16 06:00 Helmet Cells Cancelled 12/10/16 06:00 Cotati Rings Cancelled 12/10/16 06:00 [place] Cells Cancelled 12/10/16 06:00 Acanthocytes (Spur) Cancelled 12/10/16 06:00 Rouleaux Cancelled 12/10/16 06:00 Schistocytes Cancelled 12/10/16 06:00 PT 11.2 Seconds (9.9-11.8) 12/12/16 05:20 INR 1.04 (0.93-1.08) 12/12/16 05:20 APTT 22.3 Seconds (23.7-30.8) L 12/09/16 08:10 D-Dimer, Quantitative 1.30 mg/L FEU (0-0.50) H 12/09/16 08:10 Sodium 137 mmol/L (132-148) 12/18/16 06:00 Potassium 4.3 mmol/L (3.6-5.0) 12/18/16 06:00 Chloride 102 mmol/L (98-107) 12/18/16 06:00 Carbon Dioxide 27 mmol/L (21-33) 12/18/16 06:00 Anion Gap 12 (10-20) 12/18/16 06:00 BUN 24 mg/dL (7-21) H 12/18/16 06:00 Creatinine 1.2 mg/dL (0.5-1.4) 12/18/16 06:00 Est GFR ( Amer) > 60 12/18/16 06:00 Est GFR (Non-Af Amer) > 60 12/18/16 06:00 POC Glucose (mg/dL) 314 mg/dL (65-110) H 12/18/16 11:09 Random Glucose 177 mg/dL (70-110) H 12/18/16 06:00 Hemoglobin A1c 12.7 % (4.2-6.5) H 12/09/16 07:05 Calcium 9.0 mg/dL (8.4-10.5) 12/18/16 06:00 Phosphorus 4.0 mg/dL (2.5-4.5) 12/15/16 10:45 Magnesium 1.9 mg/dL (1.7-2.2) 12/15/16 10:45 Total Bilirubin 0.9 mg/dL (0.2-1.3) 12/18/16 06:00 AST 31 U/L (15-59) 12/18/16 06:00 ALT 41 U/L (7-56) 12/18/16 06:00 Alkaline Phosphatase 107 U/L (38-133) 12/18/16 06:00 Ammonia < 9 umol/L (9-33) L 12/09/16 12:53 Lactate Dehydrogenase 480 U/L (333-699) 12/08/16 17:32 Total Creatine Kinase 37 U/L (35-230) 12/13/16 05:30 Troponin I 0.02 ng/mL D 12/12/16 20:22 Total Protein 6.3 g/dL (5.8-8.3) 12/18/16 06:00 Albumin 3.5 g/dL (3.0-4.8) 12/18/16 06:00 Globulin 2.8 gm/dL 12/18/16 06:00 Albumin/Globulin Ratio 1.3 (1.1-1.8) 12/18/16 06:00 Triglycerides 219 mg/dL (35-160) H 12/09/16 07:10 Cholesterol 161 mg/dL (130-200) 12/09/16 07:10 LDL Cholesterol Direct 104 mg/dL (0-129) 12/09/16 07:10 HDL Cholesterol 30 mg/dL (29-60) 12/09/16 07:10 Free T4 2.06 ng/dL (0.78-2.19) 12/09/16 08:10 TSH 3rd Generation 2.61 mIU/mL (0.46-4.68) 12/09/16 08:10 Prolactin 14.6 ng/mL (3.7-17.9) 12/12/16 20:22 Urine Color Yellow (YELLOW) 12/13/16 14:20 Urine Appearance Sl cloudy (CLEAR) 12/13/16 14:20 Urine pH 6.5 (4.7-8.0) 12/13/16 14:20 Ur Specific [place] 1.010 (1.005-1.035) 12/13/16 14:20 Urine Protein 30 mg/dL (<30 mg/dL) H 12/13/16 14:20 Urine Glucose (UA) Negative mg/dL (NEGATIVE) 12/13/16 14:20 Urine Ketones Negative mg/dL (NEGATIVE) 12/13/16 14:20 Urine Blood Negative (NEGATIVE) 12/13/16 14:20 Urine Nitrate Negative (NEGATIVE) 12/13/16 14:20 Urine Bilirubin Negative (NEGATIVE) 12/13/16 14:20 Urine Urobilinogen 1.0 E.U./dL (<1 E.U./dL) H 12/13/16 14:20 Ur Leukocyte Esterase Negative Wanda/uL (NEGATIVE) 12/13/16 14:20 Urine RBC Negative /hpf (0-2) 12/13/16 14:20 Urine WBC 0 - 2 /hpf (0-6) 12/13/16 14:20 Ur Epithelial Cells 0 - 2 /hpf (0-5) 12/09/16 03:30 Salicylates < 1 mg/dL (2.0-20.0) L 12/08/16 17:32 Urine Opiates Screen Negative (NEGATIVE) 12/09/16 03:30 Urine Methadone Screen Negative (NEGATIVE) 12/09/16 03:30 Ur Barbiturates Screen Negative (NEGATIVE) 12/09/16 03:30 Ur Phencyclidine Scrn Negative (NEGATIVE) 12/09/16 03:30 Ur Amphetamines Screen Negative (NEGATIVE) 12/09/16 03:30 U Benzodiazepines Scrn Positive (NEGATIVE) H 12/09/16 03:30 U Oth Cocaine Metabols Negative (NEGATIVE) 12/09/16 03:30 U Cannabinoids Screen Positive (NEGATIVE) H 12/09/16 03:30 Alcohol, Quantitative < 10 mg/dL (0-10) 12/08/16 17:32 - Hospital Course Hospital Course: Patient is a 66 year old male with pmh sig for CAD, CABG in 2010, Afib, hx of DVT on xarelto, and DM who was admitted to the hospital on 12/09/16 for evaluation and treatment of weakness and bilateral hand and face tremor/ twitching episodes. A rapid response was called on him 2/2 seizure activity. Patient was stabilized and transferred to ICU. Patient was treated in the ICU and was deemed stable to return to telemetry. With the use of physical examinations, lab work, imaging, and consulting specialty physicians including Dr. Escoto cardiology, Dr. Antoine critical care, and Dr. Love the patient was diagnosed and treated for stroke, seizures, atrial fibrillation, LE claudication, atrial fibrillation, DM2, and CAD. Patient is stable to discharge to home. Patient instructed to take medications as prescribed and follow up in PMD, Dr. Escoto, and Dr. Love outpatient. Patient advised to return to ED for evaluation of fever, chills, dizziness, headache, chest pain, SOB, abdominal pain, N/V, diarrhea, constipation, and urinary symptoms. Patient understands and agrees with discharge plan. Assessment and Plan Stroke - stable at this time - Neuro c/s: neuroencephalomalacia in addition to hyperglycemia could contribute to seizure activity. - Brain MRI: not consistent with hemorrhage after discussion with radiologist ; MRI 12/10 showed possible acute infarct right frontal lobe No focal neurologic deficits appreciated - c/w aspirin and lipitor - c/w pureed diet for dysphagia as per swallow evaluation Seizure - advised not to drive - stable at this time - Patient had at least 3 witnessed seizures - MRA Neck: no significant disease - EEG: No seizure activity 12/12/16 - Repeated CT Head: Negative - Continue ASA and xarelto - Continue Keppra 500 mg BID - Advised patient on the importance of not abruptly stopping his home benzos Gait dysfunction; History of frequent falls; Deconditioned - use 4 point walker to ambulation - rx placed in patient chart Reported History of Symptoms of LE Claudication - use 4 point walker to ambulation - rx placed in patient chart - patient states [facility] Hx of Atrial fibrillation - Rate control with Lopressor - continue anticoagulation Hx of CAD - Statin - Heart healthy diet DM2, details- uncontrolled HgBA1c 12.7 - c/w levemir bid and metformin Hx of Anxiety - c/w Xanax patient case discussed with and approved by Dr. Dailey. Discharge Exam - Head Exam Head Exam: ATRAUMATIC, NORMAL INSPECTION, NORMOCEPHALIC - Additional Findings Additional findings: Constitutional: a&o x 4, nad Head and Neck: neck supple, no jvd, trachea midline, carotid midline, no cervical/head mass Eyes: rosenda, nonicteric sclera, eom intact ENT: auditory acuity grossly intact, throat not congested, no nasal deformity Cardio: Arrhythmia; regular rate, no m/r/g, no carotid bruit, nml s1, s2 Pulm: no accessory muscle use, equal nml breath sounds bilaterally, ctab Abd: s/nt/nd, nbs x 4 q, no palpable masses Derm: venous dermatitis right lower extermity, scar noted on left LE 2/2 from graft surgery, no ulcers, no lesions Extr: no edema, no cyanosis, no calf tenderness, no lesions, no varicosities Neuro: cn II-XII grossly intact, ue and le 5/5 muscle strength bilaterally, no los ue, le bilaterally and core Discharge Plan - Discharge Medications Prescriptions: Alprazolam [Xanax] 0.5 mg PO DAILY #30 tab Aspirin [Aspirin Chewable] 81 mg PO DAILY #30 Atorvastatin [Lipitor] 40 mg PO DIN #30 tab Gabapentin [Neurontin] 300 mg PO TID #90 cap Insulin Detemir [Levemir] 20 unit SC Q12 #1200 unit levETIRAcetam [Keppra] 500 mg PO BID #60 syr metFORMIN [glucOPHAGE] 500 mg PO BID #60 tab Metoprolol Tartrate [Lopressor] 25 mg PO BID #60 tab Pantoprazole [Protonix EC Tab] 40 mg PO 0600 #30 ect Rivaroxaban [Xarelto] 15 mg PO DAILY #30 tab Thiamine [Vitamin B1 Tab] 100 mg PO DAILY #30 tab - Follow Up Plan Condition: [facility] Disposition: HOME/ ROUTINE Additional Instructions: Discharge instructions Follow up with primary care doctor in [facility] within this week Follow up with Dr. Escoto, supervisor education, in 1-2 weeks Follow up with Dr. Love, neurologist, in 1-2 weeks exercise fall precaution and education re: diabetes and insulin administration Do not skip medicine, it can cause seizure to relapse Patient does not drive and denies having personal driver license New Meds -------- Discontinue valium xarelto xANAX, Aspirin, lipitor Thiamine, metformin gabapentin Levemir 20u bid with needle and syringe metformin 500 bid keppra 500 bid lopressor protonix thiamine Prescription given for needles/syringe for insulin, 4 point cane Diagnosis Stroke Seizure Gait dysfunction; History of frequent falls; Deconditioning LE Claudication Hx of Atrial fibrillation Hx of CAD DM2, A1c 12.7 Hx of Anxiety [facility] Gareth Mendosa [Other] PCP,NO [Primary Care Provider] -
[2016-12-18 16:29] VITALS: BP 139/91; PULSE 67; TEMP 97.6; O2SAT 95
== END 2016-12-18 18:44 | disposition home or self-care (01) | DRG 65 ==
LOC: ED 19:17 → INTOOBSV 23:32 → OBSVTOIN 23:32 → ERH 23:32 → 2RNO 12-09 03:57 → CCU 12-09 09:43 → OBSVTOIN 12-09 15:39 → CCU 12-09 17:20 → 3RNO 12-11 10:08
PROVIDERS: ADMIT Internal Medicine; ATTEND Internal Medicine
DX: I63.9 Cerebral infarction, unspecified (principal); I42.0 Dilated cardiomyopathy; I50.9 Heart failure, unspecified; I11.0 Hypertensive heart disease with heart failure; I48.2 Chronic atrial fibrillation; I27.2 Other secondary pulmonary hypertension; G93.89 Other specified disorders of brain; E11.65 Type 2 diabetes mellitus with hyperglycemia; R29.714 NIHSS score 14; G40.909 Epilepsy, unspecified, not intractable, without status epilepticus; I25.10 Atherosclerotic heart disease of native coronary artery without angina pectoris; R25.3 Fasciculation; F41.9 Anxiety disorder, unspecified; I73.9 Peripheral vascular disease, unspecified; R25.1 Tremor, unspecified; R29.6 Repeated falls; Z91.81 History of falling; Z79.01 Long term (current) use of anticoagulants; Z86.718 Personal history of other venous thrombosis and embolism; Z95.1 Presence of aortocoronary bypass graft; Z87.891 Personal history of nicotine dependence

== ENCOUNTER 2016-12-29 08:18 | Observation (INO) | payer OTHER, SELFPAY ==
[2016-12-29 09:16] LABS: BASO # 0.02 K/mm3 (0.0-2.0); BASO % 0.2 % (0.0-3.0); EOS # 0.3 (0.0-0.7); EOS % 3.9 % (1.5-5.0); GRAN # 6.07 (1.4-6.5); GRAN % 71.6 % (50.0-68.0); HEMATOCRIT 41.5 % (42.0-52.0); LYMPH # 1.4 (1.2-3.4); LYMPH % 16.6 % (22.0-35.0); MEAN CELL VOLUME 90.8 fl (80.0-105.0); MEAN CORPUSCULAR HEMOGLOBIN 30.9 pg (25.0-35.0); MEAN PLATELET VOLUME 10.9 fl (7.0-11.0); MONO # 0.7 (0.1-0.6); MONO % 7.7 % (1.0-6.0); RED CELL DISTRIBUTION WIDTH 13.9 % (11.5-14.5); WHITE BLOOD COUNT 8.5 10^3/ul (4.5-11.0)
--- NOTE | 2016-12-29 09:21 | CT ---
PROCEDURE: CT HEAD WITHOUT CONTRAST. HISTORY: Code Stroke COMPARISON: None available. TECHNIQUE: Axial computed tomography images were obtained through the head/brain without intravenous contrast. Radiation dose: Total exam DLP = 774 mGy-cm. This CT exam was performed using one or more of the following dose reduction techniques: Automated exposure control, adjustment of the mA and/or kV according to patient size, and/or use of iterative reconstruction technique. FINDINGS: HEMORRHAGE: No intracranial hemorrhage. BRAIN: No mass effect or edema. There is an area of chronic encephalomalacia in the left frontal white matter. There are no acute findings. Dr. Serrato was called at 9:17 a.m. VENTRICLES: Unremarkable. No hydrocephalus. CALVARIUM: Unremarkable. PARANASAL SINUSES: Unremarkable as visualized. No significant inflammatory changes. MASTOID AIR CELLS: Unremarkable as visualized. No inflammatory changes. OTHER FINDINGS: None. IMPRESSION: No acute findings
[2016-12-29 09:26] LABS: ALB/GLOB RATIO 1.3 (1.1-1.8); ALKALINE PHOSPHATASE 112 U/L (38-126); ALT/SGPT 27 U/L (7-56); AST/SGOT 20 U/L (17-59); BILIRUBIN,TOTAL 0.7 mg/dL (0.2-1.3); BLOOD UREA NITROGEN 19 mg/dL (7-21); CALCIUM 9.4 mg/dL (8.4-10.5); CARBON DIOXIDE 28 mmol/L (21-33); CHLORIDE 102 mmol/L (98-107); CHOLESTEROL 140 mg/dL (130-200); GFR AFRICAN-AMERICAN > 60; GLUCOSE,RANDOM 212 mg/dL (70-110); MAGNESIUM 1.9 mg/dL (1.7-2.2); POTASSIUM 3.6 mmol/L (3.6-5.0); SODIUM 142 mmol/L (132-148); TOTAL PROTEIN 7.2 g/dL (5.8-8.3)
[2016-12-29 09:36] LABS: TROPONIN I 0.04 ng/mL
--- NOTE | 2016-12-29 10:23 | RAD ---
HISTORY: weakness COMPARISON: No prior. FINDINGS: LUNGS: No active pulmonary disease. PLEURA: No significant pleural effusion identified, no pneumothorax apparent. CARDIOVASCULAR: Mild vascular congestion OSSEOUS STRUCTURES: Sternal wires VISUALIZED UPPER ABDOMEN: Normal. OTHER FINDINGS: None. IMPRESSION: No active disease.
--- NOTE | 2016-12-29 10:36 | ED PDOC ---
Arrival/HPI - General Historian: Patient EM Caveat: Acuity of Condition - History of Present Illness Time/Duration: Prior to Arrival Symptom Onset: Gradual Symptom Course: Worsening Activities at Onset: Rest Context: Home <Cong Serrato - Last Filed: 12/29/16 18:03> <Livan Engle - Last Filed: 12/29/16 19:09> - General Chief Complaint: Weakness/Neurological Deficit Time Seen by Provider: 12/29/16 08:19 - History of Present Illness Narrative History of Present Illness (Text): Patient is a 66 year old male past medical history significant for CAD, CABG 2010, Afib on xarelto, hx of DVT , DM II who presents with complaints of right handed weakness which started last night around midnight. Patient states this is very similar to the feeling he has before he has seizures. 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 He states that he also has dizziness which has been present since he last was admitted to [facility] [place]. Patient has a baseline weakness in his lower extremities for which uses a cane to help ambulate. To note, patient states since his last hospital admission he has not needed to use the cane and feels stronger; but has fallen two times in the past two weeks. Patient denies urinary incontinence, hallucinations, vision changes, focal weakness, speech changes, chest pain, shortness of breath, n/v/d. PMD: [facility], has a new PMD has not had appt yet PSH: CABG FMH: Alzheimer's disease Allergies: acetaminophen, oxycodone 12/29/16 10:50 (Cong Serrato) Past Medical History - Provider Review Nursing Documentation Reviewed: Yes - Cardiac Hx Cardiac Disorders: Yes Hx Hypertension: Yes - Pulmonary Hx Respiratory Disorders: No - Neurological Hx Neurological Disorder: Yes Hx Seizures: Yes - HEENT Hx HEENT Disorder: No - Renal Hx Renal Disorder: No - Endocrine/Metabolic Hx Endocrine Disorders: Yes Hx Diabetes Mellitus Type 2: Yes - Hematological/Oncological Hx Blood Disorders: No - Integumentary Hx Dermatological Disorder: No - Musculoskeletal/Rheumatological Hx Musculoskeletal Disorders: No - Gastrointestinal Hx Gastrointestinal Disorders: No - Genitourinary/Gynecological Hx Genitourinary Disorders: No - Psychiatric Hx Psychophysiologic Disorder: No Hx Substance Use: No - Surgical History Hx Open Heart Surgery: Yes <Serrato,Cong - Last Filed: 12/29/16 18:03> Family/Social History - Physician Review Nursing Documentation Reviewed: Yes Family/Social History: Other (Alzheimer's Disease- Mother) Smoking Status: Never Smoked Hx Alcohol Use: No Hx Substance Use: No <RojelioCong - Last Filed: 12/29/16 18:03> - Physician Review Nursing Documentation Reviewed: Yes <Livan Engle - Last Filed: 12/29/16 19:09> Allergies/Home Meds <SerratoCong - Last Filed: 12/29/16 18:03> <Livan Engle - Last Filed: 12/29/16 19:09> Allergies/Adverse Reactions: Allergies acetaminophen [From Percocet] Allergy (Verified 12/29/16 08:29) .hallucinations oxycodone [From Percocet] Allergy (Verified 12/29/16 08:29) .hallucinations Home Medications: Home Meds Medication Instructions Recorded Confirmed Alprazolam [Xanax Xr] 0.5 mg DAILY 12/29/16 12/29/16 Aspirin [Aspirin Chewable] 1 tab DAILY 12/29/16 12/29/16 Atorvastatin [Lipitor] 40 mg DAILY 12/29/16 12/29/16 Gabapentin [Neurontin] 300 mg TID 12/29/16 12/29/16 Insulin Detemir [Levemir] 20 units Q12 12/29/16 12/29/16 Levetiracetam [Keppra] 500 mg PO Q12 12/29/16 12/29/16 Metoprolol Tartrate [Lopressor] 1 tab DAILY 12/29/16 12/29/16 Pantoprazole Sodium [Protonix] 1 tab DAILY 12/29/16 12/29/16 Rivaroxaban [Xarelto] 1 tab DAILY 12/29/16 12/29/16 Thiamine [Vitamin B1 Tab] 1 tab DAILY 12/29/16 12/29/16 metFORMIN [glucOPHAGE] 1 tab BID 12/29/16 12/29/16 Review of Systems - Physician Review All systems were reviewed & negative as marked: Yes - Review of Systems Systems not reviewed;Unavailable: Acuity of Condition Constitutional: absent: Fatigue, Fevers Respiratory: absent: SOB, Cough Cardiovascular: absent: Chest Pain, Palpitations Gastrointestinal: absent: Abdominal Pain, Nausea, Vomiting Skin: absent: Rash, Pruritis Neurological: Dizziness (dizziness since last admission), Focal Weakness ( baseline weakness in B/L calves). absent: Headache, Gait Changes (states that he normally has issues ambulating but as of late has improved; however has fallen twice since he was last discharged) Psychiatric: Normal <Cong Serrato - Last Filed: 12/29/16 18:03> Physical Exam - Physical Exam Physical Exam Limitations: Altered Mental Status Vital Signs Reviewed: Yes Temperature: Afebrile Blood Pressure: Normal Pulse: Regular Respiratory Rate: Normal Appearance: Positive for: Comfortable Pain Distress: None Mental Status: Positive for: Alert and Oriented X 3. 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 No: Respiratory Distress Cardiovascular: Present: Regular Rate and Rhythm, Murmurs, Normal S1, S2 Abdomen: No: Tenderness, Distention, Normal Bowel Sounds Upper Extremity: Present: Other (Right hand- weakness and ulnar deviation; possibly due to arthritic changes) Lower Extremity: Present: Other (right LE- venous stasis, left LE- scar from GRAFT) Neurological: Present: CN II-XII Intact (finger to nose exam positive, maybe partially due to partial vision loss in right eye which complicates this exam), Speech Normal Skin: Present: Warm Psychiatric: Present: Alert, Oriented x 3. No: Agitated, Delusional <Cong Serrato - Last Filed: 12/29/16 18:03> Medical Decision Making Re-evaluation Time: 11:00 (Patient was re-evaluated constantly while in ED, each time patient began gaining more strength in right hand. Patient was able to hold a bottle which he was not capable of upon being admitted to the ED.) - Lab Interpretations I have reviewed the lab results: Yes - EKG Interpretation Interpreted by ED Physician: Yes Type: 12 lead EKG <Cong Serrato - Last Filed: 12/29/16 18:03> - Lab Interpretations I have reviewed the lab results: Yes - EKG Interpretation Interpreted by ED Physician: Yes Type: 12 lead EKG <Livan Engle - Last Filed: 12/29/16 19:09> ED Course and Treatment: Assessment 66 year old male presenting with weakness in right hand Neurological deficit vs. CVA vs. Seizure Plan - CT head reveals old left frontal lobe infarct - CXR shows no active disease - EKG, CBC, CMP - HgA1C - UA - Discussed with Dr. Dailey regarding admit to service for further evaluation and monitoring - Dr. Love consulted regarding case as he is familiar with the patient 12/29/16 11:10 (Cong Serrato) 12/29/16 13:44 66 year old male present complaining of right handed weakness which began last night. In agreement with resident note which contains more details about the patient. Patient was seen and evaluated with resident. Came up with plan and treatment together. Case discussed with Dr. Dailey who will admit to his service. Case discussed with Dr. Love who agrees with Seizures vs CVA. Agreed no aspirin due to already being on Xarelto and h/o GI bleed with aspirin. (Livan Engle) - Lab Interpretations Lab Results: 12/29/16 09:00 12/29/16 09:00 Lab Results 12/29/16 09:00: Sodium 142, Potassium 3.6, Chloride 102, Carbon Dioxide 28, Anion Gap 16, BUN 19, Creatinine 1.1, Est GFR ( Amer) > 60, Est GFR (Non- Af Amer) > 60, Random Glucose 212 H, Calcium 9.4, Phosphorus 4.0, Magnesium 1.9 , Total Bilirubin 0.7, AST 20, ALT 27, Alkaline Phosphatase 112, Troponin I 0.04 , Total Protein 7.2, Albumin 4.1, Globulin 3.1, Albumin/Globulin Ratio 1.3, Triglycerides 144, Cholesterol 140, LDL Cholesterol Direct 75, HDL Cholesterol 36 12/29/16 09:00: APTT 26.6 12/29/16 09:00: WBC 8.5, RBC 4.57, Hgb 14.1, Hct 41.5 L, MCV 90.8, MCH 30.9, MCHC 34.0, RDW 13.9, Plt Count 230, MPV 10.9, Gran % 71.6 H, Lymph % (Auto) 16.6 L, [place] % (Auto) 7.7 H, Eos % (Auto) 3.9, Baso % (Auto) 0.2, Gran # 6.07, Lymph # 1.4, [place] # 0.7 H, Eos # 0.3, Baso # 0.02 - RAD Interpretation Radiology Orders: 12/29/16 08:58 HEAD W/O (CODE STROKE) [CT] Stat CHEST PORTABLE [RAD] Stat - Medication Orders Current Medication Orders: Alprazolam (Xanax) 0.5 mg PO BID PRN; Protocol PRN Reason: Anxiety Aspirin (Aspirin Chewable) 81 mg PO DAILY [facility] Last Admin: 12/29/16 15:06 Dose: 81 mg Atorvastatin Calcium (Lipitor) 40 mg PO DAILY [facility] Last Admin: 12/29/16 15:06 Dose: 40 mg Gabapentin (Neurontin) 300 mg PO TID CM PRN Reason: Protocol Last Admin: 12/29/16 18:08 Dose: 300 mg Re-Assess: Reassess Psych Meds Document 12/29/16 19:07 DEL (Rec: 12/29/16 19:07 DEL [id number]) Reassess Psych Med Effective Insulin Detemir (Levemir) 20 unit SC Q12 [facility] Insulin Human Regular (Humulin R Low) 0 units SC ACHS [facility] PRN Reason: Protocol Last Admin: 12/29/16 18:09 Dose: 3 units Levetiracetam (Keppra) 500 mg PO Q12 CM Lorazepam (Ativan) 1 mg IVP Q6H PRN; Protocol PRN Reason: Anxiety Metoprolol Tartrate (Lopressor) 25 mg PO BID [facility] Last Admin: 12/29/16 18:09 Dose: 25 mg Pantoprazole Sodium (Protonix Ec Tab) 40 mg PO ACB CM Rivaroxaban (Xarelto) 15 mg PO DIN [facility] PRN Reason: Protocol Last Admin: 12/29/16 18:04 Dose: Thiamine HCl (Vitamin B1 Tab) 100 mg PO DAILY [facility] Discontinued Medications Levetiracetam 1,000 mg/ Sodium (Chloride) 110 mls @ 440 mls/hr IV ONCE ONE Stop: 12/29/16 11:40 Last Admin: 12/29/16 12:03 Dose: 440 mls/hr Rivaroxaban (Xarelto) 15 mg PO DIN CM PRN Reason: Protocol Rivaroxaban (Xarelto) 15 mg PO DAILY CM PRN Reason: Protocol Last Admin: 12/29/16 19:07 Dose: rTPA Inclusion/Exclusion - Refusal of Treatment Patient Refused Treatment: No - Inclusion Criteria for Altepase Patient is 18 years or Older: Yes The Clinical Diagnosis of Ischemic Stroke That is Causing a Potentially Disabling Neurological Deficit: No Time of Onset is Well Established to be Less Than 270 Minute Before Treatment Would Begin: No Risk/Benefit Discussed With Patient/Family Member Present: No <Cong Serrato - Last Filed: 12/29/16 18:03> - Refusal of Treatment Patient Refused Treatment: No - Inclusion Criteria for Altepase Patient is 18 years or Older: Yes The Clinical Diagnosis of Ischemic Stroke That is Causing a Potentially Disabling Neurological Deficit: No Time of Onset is Well Established to be Less Than 270 Minute Before Treatment Would Begin: No Risk/Benefit Discussed With Patient/Family Member Present: No <Livan Engle - Last Filed: 12/29/16 19:09> NIHSS Scale (Gray) Time Performed: 08:20 - How Severe is the Stoke Post tPA Level of Consciousness: 0=Alert LOC to Questions: 0=Both comments correct LOC to commands: 0=Obeys both correctly Visual: 0=No visual loss Facial: 0=Normal Motor Arm - Left: 0=No drift Motor Arm - Right: 0=No drift Motor Leg - Left: 0=No drift Motor Leg - Right: 0=No drift Limb Ataxia: 1=Present Upper or Lower Sensory: 0=Normal Best Language: 0=No aphasia Dysarthia: 0=Normal articulation Extinction & Inattention (Neglect): 0=Normal, no object <Cong Serrato - Last Filed: 12/29/16 18:03> - How Severe is the Stoke Post tPA Level of Consciousness: 0=Alert LOC to Questions: 0=Both comments correct LOC to commands: 0=Obeys both correctly Visual: 0=No visual loss Facial: 0=Normal Motor Arm - Left: 0=No drift Motor Arm - Right: 0=No drift Motor Leg - Left: 0=No drift Motor Leg - Right: 0=No drift Limb Ataxia: 1=Present Upper or Lower Sensory: 0=Normal Best Language: 0=No aphasia Dysarthia: 0=Normal articulation Extinction & Inattention (Neglect): 0=Normal, no object <Livan Engle - Last Filed: 12/29/16 19:09> <Cong Serrato - Last Filed: 12/29/16 18:03> - Scribe Statement The provider has reviewed the documentation as recorded by the Scribe <Livan Engle - Last Filed: 12/29/16 19:09> - Scribe Statement Ilya Motley All medical record entries made by the Scribe were at my direction and personally dictated by me. I have reviewed the chart and agree that the record accurately reflects my personal performance of the history, physical exam, medical decision making, and the department course for this patient. I have also personally directed, reviewed, and agree with the discharge instructions and disposition. (Livan Engle) Disposition/Present on Arrival - Present on Arrival Any Indicators Present on Arrival: No History of DVT/PE: Yes History of Uncontrolled Diabetes: No Urinary Catheter: No History of Decub. Ulcer: No History Surgical Site Infection Following: None - Disposition Have Diagnosis and Disposition been Completed?: No Disposition Time: 12:45 Patient Plan: Admission, Telemetry <Cong Serrato - Last Filed: 12/29/16 18:03> <Livan Engle - Last Filed: 12/29/16 19:09> - Disposition Diagnosis: Seizure, CVA (cerebral vascular accident) Disposition: HOSPITALIZED Patient Problems: Current Active Problems Problem Status Onset CVA (cerebral vascular accident) Acute Seizure Acute Condition: SERIOUS
[2016-12-29] MEDS ORDERED: levETIRAcetam 1,000 MG in Sodium Chloride 0.9% 100 ML IV ONE (11:26)
--- NOTE | 2016-12-29 14:42 | CP.PCM.HP ---
History of Present Illness - History of Present Illness History of Present Illness: Please note that patient has two different charts, with former MR# [id number] CC:bilateral upper extremities weakness, I think I had seizures last night. Patient is a 66 y/o male with PMH significant for CAD s/p CABG, visual problems ( hemianopsia?), atrial fibrillation ( on xarelto), h/o DVTs, IDDM2, peripheral neuropathy, gait instability ( uses a cane), recent echo with Lvef of 31%, recently discharged from [facility] ( 12/18/16), when he presented with bilateral upper extremities weakness and tremors and was diagnosed with frontal lobe infarct and seizures. Patient at the time was found to have atrial fibrillation, and uncontrolled diabetes. Patient was evaluated by cardiology, and neurology. Patient was discharged home to follow up with both specialists, and was started on insulin for his diabetes, and told to continue with xarelto and take keppra. Patient states since discharge he has not followed up with specialist yet, [facility]. Furthermore, since discharge he fell twice, not sure if it was his seizures, but states he didn't have his cane with him at the time. Patient states he has been complaints with his medications. Up until last night, when felt left upper extremities weakness, might have had a seizures, but doesn't remember the specifics, then few minutes later he noticed his right hand was weak and with the wrist deviating inward, to the point that when he tried to crab a cup it fell. Patient states since then his right hand has been feeling weaker and is deviated. Patient didn't take any aspirin at home today. Patient has not taking his dose of xarelto today either. Patient reports he has chronic visual deficit, but denies acute changes, denies headache, admits to dizziness when he stands up from a sitting position. Patient denies palpitations, chest pain, shortness of breath. Denies fever or chills, denies abdominal pain, n/v/d. Denies dysurea or hematuria. States he does have histories of bladder incontinent post ictaly, but denies any currently. PMH: CAD s/p CABG, visual problems ( hemianopsia?), atrial fibrillation ( on xarelto), h/o DVTs, IDDM2, peripheral neuropathy PSH: CABG in 2010 FMH: CAD and htn in the family. SH: former smoker tobacco, quit over 2 decades ago, denies etoh and illicit drug use. Lives alone, walks with a cane, gets his [facility]. ALL: Acetaminophen and oxycodone Meds: See EMAR for complete list. Present on Admission - Present on Admission Any Indicators Present on Admission: No History of DVT/PE: Yes History of Uncontrolled Diabetes: Yes Urinary Catheter: No Decubitus Ulcer Present: No Review of Systems - Review of Systems All systems: reviewed and no additional remarkable complaints except Review of Systems: As per HPI. Past Patient History - Infectious Disease Hx of Infectious Diseases: None - Tetanus Immunizations Tetanus Immunization: Unknown - Past Medical History & Family History Past Medical History?: Yes Past Family History: Reviewed and not pertinent - Past Social History Smoking Status: Former Smoker Alcohol: None Drugs: Denies Home Situation {Lives}: Alone - CARDIAC Hx Cardiac Disorders: Yes Hx Hypertension: Yes - PULMONARY Hx Respiratory Disorders: No - NEUROLOGICAL Hx Neurological Disorder: Yes Hx Seizures: Yes - HEENT Hx HEENT Problems: No - RENAL Hx Chronic Kidney Disease: No - ENDOCRINE/METABOLIC Hx Endocrine Disorders: Yes Hx Diabetes Mellitus Type 2: Yes - HEMATOLOGICAL/ONCOLOGICAL Hx Blood Disorders: No - INTEGUMENTARY Hx Dermatological Problems: No - MUSCULOSKELETAL/RHEUMATOLOGICAL Hx Musculoskeletal Disorders: No - GASTROINTESTINAL Hx Gastrointestinal Disorders: No - GENITOURINARY/GYNECOLOGICAL Hx Genitourinary Disorders: No - PSYCHIATRIC Hx Psychophysiologic Disorder: No Hx Substance Use: No - SURGICAL HISTORY Hx Open Heart Surgery: Yes Meds Allergies/Adverse Reactions: Allergies Allergy/AdvReac Type Severity Reaction Status Date / Time acetaminophen [From Percocet] Allergy .hallucinat Verified 12/29/16 08:29 ions oxycodone [From Percocet] Allergy .hallucinat Verified 12/29/16 08:29 ions Physical Exam - Constitutional Appears: Older Than Stated Age, Chronically Ill - Head Exam Head Exam: ATRAUMATIC, NORMAL INSPECTION, NORMOCEPHALIC - Eye Exam Eye Exam: EOMI, Normal appearance, PERRL. absent: Conjunctival injection, Nystagmus, Scleral icterus Pupil Exam: NORMAL ACCOMODATION, PERRL - ENT Exam ENT Exam: Mucous Membranes Moist, Normal Exam - Neck Exam Neck exam: Positive for: Full Rom, Normal Inspection. Negative for: Lymphadenopathy, Meningismus, Tenderness, Thyromegaly - Respiratory Exam Respiratory Exam: Clear to Auscultation Bilateral, NORMAL BREATHING PATTERN. absent: Decreased Breath Sounds, Rales, Rhonchi, Wheezes, Respiratory Distress, Stridor - Cardiovascular Exam Cardiovascular Exam: Irregular Rhythm, +S1, +S2. absent: Bradycardia, Tachycardia, Gallop, JVD, Rubs, Systolic Murmur - GI/Abdominal Exam GI & Abdominal Exam: Normal Bowel Sounds, Soft. absent: Distended, Firm, Guarding, Rigid, Tenderness - Extremities Exam Extremities exam: Positive for: normal inspection. Negative for: pedal edema, tenderness - Back Exam Back exam: NORMAL INSPECTION. absent: paraspinal tenderness - Neurological Exam Neurological exam: Alert, CN II-XII Intact, Oriented x3, Reflexes Normal Additional comments: Mild muscle rigidity on bilateral upper extremities with extension. No resting or intention tremors. Sensation intact in b/l upper and lower extremities. +2 reflexes throughout Negative babinski Speech is normal, no tongue fasciculation, no tongue bite, no tongue atrophy. no facial asymmetry. + pronator drift on the right, 4/5 motor strength with flexion and extension on the right. 5/5 motor strength on the left with flexion and extension. + ulnar deviation on the right. + Dysmetria on the right. - Psychiatric Exam Psychiatric exam: Normal Affect, Normal Mood - Skin Skin Exam: Abrasion (on the lower extremities. ), Dry, Intact, Normal Color, Warm Results - Vital Signs Recent Vital Signs: Last Vital Signs Temp 97.5 F L 12/29/16 08:33 Pulse 84 12/29/16 12:00 Resp 18 12/29/16 12:00 BP 140/89 12/29/16 12:00 Pulse Ox 98 12/29/16 12:00 - Labs Result Diagrams: 12/29/16 09:00 12/29/16 09:00 - EKG Data EKG Interpreted by: Myself (afib) Assessment & Plan - Assessment and Plan (Free Text) Assessment: Patient is a 66 y/o male with PMH significant for CAD s/p CABG, visual problems ( hemianopsia?), atrial fibrillation ( on xarelto), h/o DVTs, IDDM2, peripheral neuropathy, recently discharged from [facility] ( 12/18/16), presented with right upper extremities weakness and right ulnar deviation. 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 - versus trauma likely due to recent seizures - Will consider hand x-ray if the ulnar deviation persists - CT head with chronic frontal encephalomalacia - Neurology consulted for possible cva recurrence. - Will give aspirin. - spoke to Dr Love, will resume xarelto - Reviewed old MRI report from 12/10, patient had acute frontal infarct, encephalomalacia and left frontal atrophy. - Will obtain repeat brain MRI to evaluate for stroke recurrence. 2) Dizziness- vertigo versus ataxia from cva versus autonomic versus cardiac versus post ictal from seizures. - negative jonathan hallpike - will obtain orthostatic vital signs - Patient is not anemic - seizure treatment as below. - cardiac work up as stated below 3) Seizure disorders - s/p keppra load in the ED - will continue with keprra 500 mg bid - will obtain keppra level - will start ativan 1 mg q6 prn for seizure breakthrough. - Seizure and fall precaution - Neurology consulted 4) Indeterminate troponin - No chest pain - will continue to trend - will continue asa. - compared recent ekg with prior 12/12/16, no significant changes, no ST wave elevated, + non specific st/t wave changes. - will repeat ekg in the morning - Patient had recent echo with LVEF of 31%. - will consult cardiology 5) CAD s/p CABG - will continue with Lopressor, and Lipitor. 6) Atrial fibrillation - rate is currently controlled - will continue Lopressor and xarelto 7) DVTs -stable, continue xarelto. 8) IDDM2 - will continue with basal insulin - levemir 20 mg sc bid, ISS, moderate carb controlled diet, and fingerstick achs. - will hold metformin 9) Peripheral neuropathy - Will continue with gabapentin 10) Anxiety- will continue xanax 0.5 mg bid prn 11) DVT prophylaxis- on xarelto. 12) GI prophylaxis - on protonix 13) Gait instability- PT eval Patient seen, examined, and will discuss the case with Dr Dailey. - Date & Time Date: 12/29/16 Time: 04:45
--- NOTE | 2016-12-29 18:03 | CARD ---
APPROVED REPORT EKG Measurement Heart [id number] <Conclusion> Atrial fibrillation Cannot rule out Anterior infarct, age undetermined ST & T wave abnormality, consider lateral ischemia or digitalis effect Abnormal ECG
[2016-12-29 18:08] VITALS: RESP 20
[2016-12-29] MEDS: Insulin Reg-LOW-Coverage SC SCH ×2 (18:09→22:30)
[2016-12-29 18:55] LABS: TROPONIN I 0.03 ng/mL
[2016-12-29] MEDS ORDERED: Alum-Mag Hydrox-Simethicone Susp (30 mL) PO ONE (20:38)
[2016-12-29] MEDS: Insulin Detemir 100 units/ml Vial (Levemir) SC SCH (22:10)
[2016-12-30 01:42] LABS: TROPONIN I 0.03 ng/mL
--- NOTE | 2016-12-30 02:32 | CON ---
DATE: HISTORY OF PRESENT ILLNESS: This is a 66-year-old male with the past medical history of CABG, coronary artery disease, visual problem, atrial fibrillation, on Xarelto; insulin-dependent diabetes mellitus, peripheral neuropathy and gait instability, came to the hospital with right upper extremity weakness. He was recently had a frontal lobe infarct and seizure and was found to have atrial fibrillation and uncontrolled diabetes. The patient was started on Keppra and Xarelto and now complaining of right hand weakness. PAST MEDICAL HISTORY: Coronary artery disease, CABG, visual problem and atrial fibrillation. PAST SURGICAL HISTORY: CABG. SOCIAL HISTORY: Ex-smoker and lives alone. ALLERGIES: TO OXYCODONE AND ACETAMINOPHEN. REVIEW OF SYSTEMS: A 10-point review of systems was negative except right hand weakness weak hand ambulatory services representative. PHYSICAL EXAMINATION: VITAL SIGNS: Blood pressure 140/89. HEENT: Normocephalic, atraumatic. NECK: Supple. NEUROLOGIC: Alert, awake and oriented x3. No aphasia. Cranial nerve II to XII were tested. Pupils reactive. EOM intact. Visual field full. No facial asymmetry. Tongue midline. Motor examination: Weakness of the right hand ambulatory services representative, spontaneous movement of all the other extremities noted. Deep tendon reflexes is 1+. Both plantars are downgoing. Sensory appears intact. Cerebellar and gait, deferred. LABORATORY DATA: WBC 8.5, hemoglobin 14.1, hematocrit 41.5 and platelet 230. Sodium 142, potassium 3.6, chloride 102, CO2 is 28, glucose 212, BUN 19 and creatinine 1.1. IMPRESSION: History of seizure, dizziness, possibly right radial nerve palsy, peripheral neuropathy secondary to diabetes. Workup in progress. We will follow up. Darren Love MD
[2016-12-30 06:33] VITALS: O2SAT 97
[2016-12-30 06:56] LABS: BASO # 0.02 K/mm3 (0.0-2.0); BASO % 0.3 % (0.0-3.0); EOS # 0.3 (0.0-0.7); EOS % 4.2 % (1.5-5.0); GRAN # 5.18 (1.4-6.5); GRAN % 68.8 % (50.0-68.0); HEMATOCRIT 37.9 % (42.0-52.0); LYMPH # 1.4 (1.2-3.4); LYMPH % 18.7 % (22.0-35.0); MEAN CELL VOLUME 89.2 fl (80.0-105.0); MEAN CORPUSCULAR HEMOGLOBIN 30.1 pg (25.0-35.0); MEAN CORPUSCULAR HGB CONC 33.8 g/dl (31.0-37.0); MEAN PLATELET VOLUME 10.5 fl (7.0-11.0); MONO # 0.6 (0.1-0.6); RED CELL DISTRIBUTION WIDTH 13.8 % (11.5-14.5); WHITE BLOOD COUNT 7.5 10^3/ul (4.5-11.0)
[2016-12-30 07:24] LABS: BLOOD UREA NITROGEN 17 mg/dL (7-21); CALCIUM 8.8 mg/dL (8.4-10.5); CARBON DIOXIDE 27 mmol/L (21-33); CHLORIDE 104 mmol/L (98-107); GFR AFRICAN-AMERICAN > 60; GLUCOSE,RANDOM 114 mg/dL (70-110); POTASSIUM 3.3 mmol/L (3.6-5.0); SODIUM 139 mmol/L (132-148)
[2016-12-30] MEDS ORDERED: Pantoprazole 40 mg EC Tab PO SCH (07:30)
[2016-12-30] MEDS ORDERED: Potassium Chloride 20 mEq ER Tab PO ONE (07:40)
[2016-12-30] MEDS: Insulin Reg-LOW-Coverage SC SCH ×2 (07:53→12:41)
--- NOTE | 2016-12-30 09:28 | MRI ---
PROCEDURE: Magnetic Resonance Angiography Brain HISTORY: cva COMPARISON: None available. TECHNIQUE: 3D time of flight MR angiography of the intracranial arteries was performed. Rotating maximum intensity projection images were generated. FINDINGS: INTERNAL CEREBRAL ARTERIES: Unremarkable. The skull base, petrous, cavernous and supraclinoid segments are bilaterally widely patient. ANTERIOR CEREBRAL ARTERIES: Unremarkable. A1 and A2 segments are widely patent. Smaller distal branches unremarkable, as visualized. MIDDLE CEREBRAL ARTERIES: Unremarkable. M1 and M2 segments are widely patent. Perisylvian branches grossly symmetric. POSTERIOR CIRCULATION: Basilar Artery: Unremarkable. Distal Vertebral Arteries: Unremarkable. Posterior Cerebral Arteries: Unremarkable. Posterior Inferior Cerebellar Arteries: Unremarkable. ANEURYSM/ VASCULAR MALFORMATIONS: None. OTHER FINDINGS: The report concurs with the preliminary [facility] report IMPRESSION: Unremarkable MR angiography of the brain.
--- NOTE | 2016-12-30 09:35 | MRI ---
PROCEDURE: MRI BRAIN WITHOUT CONTRAST HISTORY: CVA COMPARISON: None. TECHNIQUE: Multiplanar, multisequence MR images of the brain were obtained without intravenous contrast enhancement. FINDINGS: HEMORRHAGE: None DWI: No evidence of an acute or early subacute infarction. BRAIN PARENCHYMA: No mass effect or edema. There is an old hemorrhagic cortical infarct in the right frontal lobe. There is cystic and non cystic encephalomalacia in the left frontal lobe. No acute infarct VENTRICLES: Unremarkable. No hydrocephalus. CRANIUM: Unremarkable. ORBITS: Grossly unremarkable. PARANASAL SINUSES/MASTOIDS: Clear VASCULAR SYSTEM: Skull base flow voids intact. OTHER FINDINGS: The report concurs with the preliminary [facility] report IMPRESSION: No acute intracranial findings.
[2016-12-30] MEDS ORDERED: ALPRAZOLAM 0.5 MG PO SCH (10:00)
--- NOTE | 2016-12-30 11:16 | CARD ---
APPROVED REPORT EKG Measurement Heart [id number] <Conclusion> Atrial fibrillation T wave abnormality, consider anterolateral ischemia or digitalis effect Abnormal ECG
[2016-12-30 11:49] VITALS: BP 171/87; PULSE 54; TEMP 97.9
[2016-12-30] MEDS: Insulin Detemir 100 units/ml Vial (Levemir) SC SCH (12:41)
--- NOTE | 2016-12-30 13:17 | CP.PCM.DIS ---
Provider - Provider Date of Admission: 12/29/16 10:31 Attending physician: Francesco Herring MD Primary care physician: NO PRIMARY CARE PROVIDER Consults: Neurology- Dr. Love Time Spent in preparation of Discharge (in minutes): 30 Diagnosis - Discharge Diagnosis (1) CVA (cerebral vascular accident) Status: Acute Priority: Medium (2) Seizure Status: Acute Priority: Medium Hospital Course - Lab Results Lab Results: Most Recent Lab Values WBC 7.5 10^3/ul (4.5-11.0) 12/30/16 06:30 RBC 4.25 10^6/uL (3.5-6.1) 12/30/16 06:30 Hgb 12.8 g/dL (14.0-18.0) L 12/30/16 06:30 Hct 37.9 % (42.0-52.0) L 12/30/16 06:30 MCV 89.2 fl (80.0-105.0) 12/30/16 06:30 MCH 30.1 pg (25.0-35.0) 12/30/16 06:30 MCHC 33.8 g/dl (31.0-37.0) 12/30/16 06:30 RDW 13.8 % (11.5-14.5) 12/30/16 06:30 Plt Count 195 10^3/uL (120.0-450.0) 12/30/16 06:30 MPV 10.5 fl (7.0-11.0) 12/30/16 06:30 Gran % 68.8 % (50.0-68.0) H 12/30/16 06:30 Lymph % (Auto) 18.7 % (22.0-35.0) L 12/30/16 06:30 [place] % (Auto) 8.0 % (1.0-6.0) H 12/30/16 06:30 Eos % (Auto) 4.2 % (1.5-5.0) 12/30/16 06:30 Baso % (Auto) 0.3 % (0.0-3.0) 12/30/16 06:30 Gran # 5.18 (1.4-6.5) 12/30/16 06:30 Lymph # 1.4 (1.2-3.4) 12/30/16 06:30 [place] # 0.6 (0.1-0.6) 12/30/16 06:30 Eos # 0.3 (0.0-0.7) 12/30/16 06:30 Baso # 0.02 K/mm3 (0.0-2.0) 12/30/16 06:30 APTT 26.6 Seconds (23.7-30.8) 12/29/16 09:00 Sodium 139 mmol/L (132-148) 12/30/16 06:30 Potassium 3.3 mmol/L (3.6-5.0) L 12/30/16 06:30 Chloride 104 mmol/L (98-107) 12/30/16 06:30 Carbon Dioxide 27 mmol/L (21-33) 12/30/16 06:30 Anion Gap 11 (10-20) 12/30/16 06:30 BUN 17 mg/dL (7-21) 12/30/16 06:30 Creatinine 0.9 mg/dL (0.5-1.4) 12/30/16 06:30 Est GFR ( Amer) > 60 12/30/16 06:30 Est GFR (Non-Af Amer) > 60 12/30/16 06:30 POC Glucose (mg/dL) 305 mg/dL (65-110) H 12/30/16 11:52 Random Glucose 114 mg/dL (70-110) H 12/30/16 06:30 Hemoglobin A1c 11.4 % (4.2-6.5) H 12/29/16 09:00 Calcium 8.8 mg/dL (8.4-10.5) 12/30/16 06:30 Phosphorus 4.0 mg/dL (2.5-4.5) 12/29/16 09:00 Magnesium 1.9 mg/dL (1.7-2.2) 12/29/16 09:00 Total Bilirubin 0.7 mg/dL (0.2-1.3) 12/29/16 09:00 AST 20 U/L (17-59) 12/29/16 09:00 ALT 27 U/L (7-56) 12/29/16 09:00 Alkaline Phosphatase 112 U/L (38-126) 12/29/16 09:00 Lactate Dehydrogenase 438 U/L (333-699) 12/30/16 01:05 Total Creatine Kinase 34 U/L (35-230) L 12/30/16 01:05 Troponin I 0.03 ng/mL 12/30/16 01:05 Total Protein 7.2 g/dL (5.8-8.3) 12/29/16 09:00 Albumin 4.1 g/dL (3.0-4.8) 12/29/16 09:00 Globulin 3.1 gm/dL 12/29/16 09:00 Albumin/Globulin Ratio 1.3 (1.1-1.8) 12/29/16 09:00 Triglycerides 144 mg/dL (35-160) 12/29/16 09:00 Cholesterol 140 mg/dL (130-200) 12/29/16 09:00 LDL Cholesterol Direct 75 mg/dL (0-129) 12/29/16 09:00 HDL Cholesterol 36 mg/dL (29-60) 12/29/16 09:00 TSH 3rd Generation 1.21 mIU/mL (0.46-4.68) 12/29/16 18:00 - Hospital Course Hospital Course: Patient is a 66 y/o male with PMH significant for CAD s/p CABG, visual problems, atrial fibrillation, h/o DVTs, IDDM2, peripheral neuropathy, recently discharged from [facility] ( 12/18/16), who was admitted for evaluatio and treatment of right upper extremity weakness and right ulnar deviation. With the use of physical examinations, lab work, and imaging the patient was deemed not to have an acute stroke. Neurology was consulted and the patient is clear for discharge from their perspective. During the hospital stay the patient underwent an MRI of the brain which showed no acute intracranial findings and MRA of the head with no acute findings. Patient understands and appreciate discharge plan. Patient instructed to follow up with PMD and neurologist in 1 week. Patient told to take medications as prescribed. Patient informed to come back to ED for evaluation of fever, chills, dizziness, chest pain, SOB, abdominal pain, nausea, vomiting, diarrhea, constipation, and urinary symptoms. Discharge Exam - Head Exam Head Exam: ATRAUMATIC, NORMAL INSPECTION, NORMOCEPHALIC - Additional Findings Additional findings: - Constitutional Appears: NAD - Head Exam Head Exam: ATRAUMATIC, NORMAL INSPECTION, NORMOCEPHALIC - Eye Exam Eye Exam: EOMI, Normal appearance, PERRL. absent: Conjunctival injection, Nystagmus, Scleral icterus Pupil Exam: NORMAL ACCOMODATION, PERRL - ENT Exam ENT Exam: Mucous Membranes Moist, Normal Exam - Neck Exam Neck exam: Positive for: Full Rom, Normal Inspection. Negative for: Lymphadenopathy, Meningismus, Tenderness, Thyromegaly - Respiratory Exam Respiratory Exam: Clear to Auscultation Bilateral, NORMAL BREATHING PATTERN. absent: Decreased Breath Sounds, Rales, Rhonchi, Wheezes, Respiratory Distress, Stridor - Cardiovascular Exam Cardiovascular Exam: Irregular Rhythm, +S1, +S2. absent: Bradycardia, Tachycardia, Gallop, JVD, Rubs, Systolic Murmur - GI/Abdominal Exam GI & Abdominal Exam: Normal Bowel Sounds, Soft. absent: Distended, Firm, Guarding, Rigid, Tenderness - Extremities Exam Extremities exam: Positive for: normal inspection. Negative for: pedal edema, tenderness - Back Exam Back exam: NORMAL INSPECTION. absent: paraspinal tenderness - Neurological Exam Neurological exam: Alert, CN II-XII Intact, Oriented x3, Reflexes Normal Additional comments: CN II- XII intact bilaterally Sensation intact in b/l upper and lower extremities. +2 reflexes throughout Negative babinski Speech is normal, no tongue fasciculation, no tongue bite, no tongue atrophy. no facial asymmetry. 4/5 motor strength with flexion and extension on the right. 5/5 motor strength on the left with flexion and extension. - Psychiatric Exam Psychiatric exam: Normal Affect, Normal Mood - Skin Skin Exam: venous dermatitis lower extremities, Dry, Intact, Warm Discharge Plan - Follow Up Plan Condition: SERIOUS Disposition: HOME/ ROUTINE Additional Instructions: Please establish yourself with a Neurologist and follow up as an outpatient to obtain EMG/NCV testing for your R hand weakness/paresthesia. Continue your home Xarelto for anticoagulation and your home Keppra for seizure prophylaxis. Referrals: PCP,NO [Primary Care Provider] - Follow up with primary
[2016-12-30 13:47] LABS: BLOOD UREA NITROGEN 20 mg/dL (7-21); CALCIUM 9.1 mg/dL (8.4-10.5); CARBON DIOXIDE 28 mmol/L (21-33); CHLORIDE 102 mmol/L (98-107); GFR AFRICAN-AMERICAN > 60; GLUCOSE,RANDOM 272 mg/dL (70-110); POTASSIUM 4.5 mmol/L (3.6-5.0); SODIUM 137 mmol/L (132-148)
--- NOTE | 2016-12-30 21:39 | CP.PCM.PN ---
<Phillip Ledesma - Last Filed: 12/30/16 21:36> Subjective - Date & Time of Evaluation Date of Evaluation: 12/30/16 Time of Evaluation: 10:00 - Subjective Subjective: Neurology Progress Note for Dr. Love Service Patient seen and examined at bedside. No acute events reported overnight. Patient mildly anxious regarding general medical condition and concerns that he had more seizures prior to presentation. Acutely worried that symptoms in hand that caused inability to hold his soda bottle will recur; seems acutely worried that similar symptoms will debilitate him and prevent him from doing ADLs/ IADLs. Denies shortness of breath, chest pain, new paresthesias, focal weakness , fevers/chills, nausea/emesis, diarrhea/constipation, or dysuria/hematuria. Reports some persistence of R-hand paresthesia that was present on admission, but reports improvement of this symptom, and resolution of the ulnar deviation co-presenting with it on admission. Objective - Vital Signs/Intake and Output Vital Signs (last 24 hours): Temp Pulse Resp BP Pulse Ox 97.9 F 54 L 20 171/87 H 97 12/30/16 11:48 12/30/16 14:00 12/30/16 11:48 12/30/16 11:48 12/30/16 06:00 - Labs Labs: 12/30/16 06:30 12/30/16 13:34 APTT 26.6 Seconds (23.7-30.8) 12/29/16 09:00 - Constitutional Appears: Non-toxic, No Acute Distress, Agitated (agiated/anvious regarding general medical condition), Chronically Ill - Head Exam Head Exam: ATRAUMATIC, NORMAL INSPECTION, NORMOCEPHALIC - Eye Exam Eye Exam: EOMI, Normal appearance. absent: Conjunctival injection - ENT Exam ENT Exam: Mucous Membranes Moist. absent: Mucous Membranes Dry - Neck Exam Neck Exam: Full ROM, Normal Inspection - Respiratory Exam Respiratory Exam: Decreased Breath Sounds (mildly decreased breath sounds in all condon), Clear to Ausculation Bilateral, NORMAL BREATHING PATTERN. absent: Accessory Muscle Use, Chest Wall Tenderness, Prolonged Expiratory Phase, Rales, Rhonchi, Wheezes, Respiratory Distress - Cardiovascular Exam Cardiovascular Exam: Irregular Rhythm, +S1, +S2. absent: Bradycardia, Tachycardia, REGULAR RHYTHM, JVD, RRR, +S4 - GI/Abdominal Exam GI & Abdominal Exam: Soft, Normal Bowel Sounds. absent: Distended, Firm, Guarding, Rigid, Tenderness, Diminished Bowel Sounds, Hyperactive Bowel Sounds, Hypoactive Bowel Sounds - Extremities Exam Extremities Exam: Calf Tenderness (mild bilateral calf tenderness, immediately adjacent to ankles, no swelling or erythema at tender sites bilaterally), Normal Capillary Refill. absent: Joint Swelling, Pedal Edema, Tenderness - Back Exam Back Exam: absent: CVA tenderness (L), CVA tenderness (R) - Neurological Exam Additional comments: Awake and alert, moving all extremities spontaneously, following all commands appropriately R hand ulnar deviation resolved, full ROM and gross sensation intact Gross motor and sensation intact and equal bilaterally Bilateral UE 3+/5 motor strength, bilateral LE 4/5 motor strength, bilateral veterinary attendant strength 4/5 - Skin Skin Exam: Dry, Intact, Normal Color, Warm Assessment and Plan - Assessment and Plan (Free Text) Assessment: This is a 66 yo M with PMH of CAD s/p CABG, Afib, h/o DVT, 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 Not acutely seizing currently, and his bilateral UE weakness and RUE parestheia have largely resolved. His weakness and parethesias are likely 2/2 diabetic neuropathy in the setting of poorly controlled diabetes (A1c on 12/29/16 was 11.4 ), and possible component of deconditioning. In reviewing most recent MRI and MRA, no acute bleeding identified, so patient is cleared to be restarted on his home Xarelto (given hx of Afib and prior stroke), and will be continued on his home Keppra 500mg PO BID for seizure ppx. He will need to follow up with a neurologist as an outpatient to obtain EMG/NCV studies to further assess his RUE ulnar deviation and paresthesias. Plan: 1) Restart home Xarelto 2) Continue Keppra 500mg PO BID for seizure ppx 3) PT/OT 4) Follow up with outpatient neurology for EMG/NCV Patient reviewed and discussed with attending, Dr. Love. <Chapin Love - Last Filed: 12/31/16 00:27> Objective - Vital Signs/Intake and Output Vital Signs (last 24 hours): Temp Pulse Resp BP Pulse Ox 97.9 F 54 L 20 171/87 H 97 12/30/16 11:48 12/30/16 14:00 12/30/16 11:48 12/30/16 11:48 12/30/16 06:00 - Labs Labs: 12/30/16 06:30 12/30/16 13:34 APTT 26.6 Seconds (23.7-30.8) 12/29/16 09:00 Attending/Attestation - Attestation I have personally seen and examined this patient.: Yes I have fully participated in the care of the patient.: Yes I have reviewed all pertinent clinical information, including history, physical exam and plan: Yes
--- NOTE | 2016-12-31 03:06 | CON ---
DATE OF CONSULTATION: 12/30/2016 HISTORY OF PRESENT ILLNESS: The patient presented with questionable weakness or seizure in the right upper extremity. PAST MEDICAL HISTORY: The patient's past medical history is notable for seizures in the past. In addition, he suffers from hypertension, hyperlipidemia, as well as diabetes mellitus. The patient has documented an ischemic dilated cardiomyopathy with a history of coronary artery bypass in the past. SOCIAL HISTORY: Negative. Denies smoking. REVIEW OF SYSTEMS: A 14-point review of systems was reviewed in detail. No angina. No shortness of breath. No edema in lower extremities. No cardiac symptomatology. PHYSICAL EXAMINATION: VITAL SIGNS: Blood pressure 130/80, the heart rates in the 50s, in atrial fibrillation. NECK: Negative JVD. LUNGS: Without rales. HEART: S1 and S2. EXTREMITIES: Without edema. EKG shows atrial fibrillation with nonspecific ST-T changes. LABORATORY DATA: Hemoglobin is 12.8. Chemistries; troponin is negative x1, glucose is 272. IMPRESSION 1. Stable angina. 2. Coronary artery disease. 3. History of coronary artery bypass surgery. 4. Ischemic dilated cardiomyopathy. 5. Diabetes mellitus. 6. Hypertension. 7. Hypercholesterolemia. 8. History of atrial fibrillation. 9. History of seizures. Given these findings, the patient's cardiac status is stable at this time. His heart rhythm is well-controlled. Ruddy Escoto MD
== END 2016-12-30 16:43 | disposition home or self-care (01) ==
LOC: ED 08:18 → ERH 10:31 → MERGE 10:31 → INTOOBSV 10:31 → ERH 11:15 → 2RSO 12:53
PROVIDERS: ADMIT Internal Medicine; ATTEND Internal Medicine
DX: R53.1 Weakness (principal); R42 Dizziness and giddiness; Z86.73 Personal history of transient ischemic attack (TIA), and cerebral infarction without residual deficits; I25.118 Atherosclerotic heart disease of native coronary artery with other forms of angina pectoris; I48.91 Unspecified atrial fibrillation; E11.42 Type 2 diabetes mellitus with diabetic polyneuropathy; R56.9 Unspecified convulsions; I25.5 Ischemic cardiomyopathy; I42.0 Dilated cardiomyopathy; R26.9 Unspecified abnormalities of gait and mobility; R25.1 Tremor, unspecified; E11.65 Type 2 diabetes mellitus with hyperglycemia; F41.9 Anxiety disorder, unspecified; I10 Essential (primary) hypertension; E78.5 Hyperlipidemia, unspecified; E78.00 Pure hypercholesterolemia, unspecified; Z79.4 Long term (current) use of insulin; Z79.01 Long term (current) use of anticoagulants; Z95.1 Presence of aortocoronary bypass graft; Z86.718 Personal history of other venous thrombosis and embolism; Z79.82 Long term (current) use of aspirin; Z87.891 Personal history of nicotine dependence; Z82.49 Family history of ischemic heart disease and other diseases of the circulatory system
CPT/HCPCS: 36415; 70450; 70544; 70551; 71010; 80048; 80053; 80061; 80299; 82550; 82948; 83036; 83615; 83735; 84100; 84443; 84484; 85025; 85730; 93005; 97116; 97162; 99285; G0378; G8978; G8979; G8980; J1953

== ENCOUNTER 2017-03-22 14:56 | Emergency (ER) | payer OTHER ==
[2017-03-22 14:57] VITALS: BMI 25.8
[2017-03-22 15:36] VITALS: TEMP 98.1; O2SAT 99
[2017-03-22 16:14] LABS: BASO # 0.02 K/mm3 (0.0-2.0); BASO % 0.2 % (0.0-3.0); EOS # 0.1 (0.0-0.7); EOS % 0.6 % (1.5-5.0); GRAN # 8.51 (1.4-6.5); GRAN % 80.8 % (50.0-68.0); HEMATOCRIT 45.5 % (42.0-52.0); LYMPH # 1.3 (1.2-3.4); LYMPH % 12.4 % (22.0-35.0); MEAN CORPUSCULAR HEMOGLOBIN 28.8 pg (25.0-35.0); MEAN CORPUSCULAR HGB CONC 32.3 g/dl (31.0-37.0); MEAN PLATELET VOLUME 11.6 fl (7.0-11.0); MONO # 0.6 (0.1-0.6); RED CELL DISTRIBUTION WIDTH 13.5 % (11.5-14.5); WHITE BLOOD COUNT 10.5 10^3/ul (4.5-11.0)
[2017-03-22 16:18] LABS: ALB/GLOB RATIO 1.3 (1.1-1.8); ALKALINE PHOSPHATASE 125 U/L (38-126); ALT/SGPT 27 U/L (7-56); AST/SGOT 26 U/L (17-59); BILIRUBIN,TOTAL 1.6 mg/dL (0.2-1.3); BLOOD UREA NITROGEN 21 mg/dL (7-21); CALCIUM 10.3 mg/dL (8.4-10.5); CARBON DIOXIDE 26 mmol/L (21-33); CHLORIDE 99 mmol/L (98-107); GFR AFRICAN-AMERICAN > 60; GLUCOSE,RANDOM 172 mg/dL (70-110); LIPASE 79 U/L (23-300); MAGNESIUM 1.9 mg/dL (1.7-2.2); POTASSIUM 4.2 mmol/L (3.6-5.0); SODIUM 141 mmol/L (132-148)
[2017-03-22 16:28] LABS: INR 1.3 (0.93-1.08); PARTIAL THROMBOPLASTIN TIME 32.6 Seconds (25.1-36.5)
--- NOTE | 2017-03-22 16:32 | RAD ---
HISTORY: chest pain COMPARISON: Chest x-ray performed 12/29/16 TECHNIQUE: Chest, one view. FINDINGS: LUNGS: Biapical pleural thickening No focal consolidation. Please note that chest x-ray has limited sensitivity for the detection of pulmonary masses. PLEURA: No significant pleural effusion identified. No definite pneumothorax . CARDIOVASCULAR: Median sternotomy wires. Cardiomegaly. Marked aortic ectasia. OSSEOUS STRUCTURES: No acute osseous abnormality identified. VISUALIZED UPPER ABDOMEN: Unremarkable. OTHER FINDINGS: None. IMPRESSION: Biapical pleural thickening. No focal consolidation, significant pleural effusion, or definite pneumothorax identified. Median sternotomy wires. Cardiomegaly. Marked aortic ectasia.
--- NOTE | 2017-03-22 16:33 | ED PDOC ---
Arrival/HPI - General Historian: Patient <Jose Guadalupe Wiseman A - Last Filed: 03/23/17 01:32> <Lesley Farley - Last Filed: 03/25/17 11:38> - General Chief Complaint: Shortness Of Breath Time Seen by Provider: 03/22/17 15:18 - History of Present Illness Narrative History of Present Illness (Text): 03/22/17 16:25 66yo male with PMhx of Afib, seizure, DVT, Diabetes who present with complaint of SOB since this morning. He is also complaining of burning epigastric pain, which is typical of his GERD. Notes that he takes Protonix at home, but didn't take it today. He reports mild left sternal chest pain. Denies nausea, vomiting , diarrhea, abdominal pain, LE edema, calf pain, recent travel, diaphoresis, dizziness, focal weakness. Notes that [facility] ( Jose Guadalupe Wiseman A) Past Medical History - Provider Review Nursing Documentation Reviewed: Yes - Infectious Disease Hx of Infectious Diseases: None - Tetanus Immunization Tetanus Immunization: Unknown - Cardiac Other/Comment: triple bypass 2 yrs ago, vein stripping right leg 40 yrs ago - Pulmonary Hx Respiratory Disorders: Yes (Pneumonitis) - Neurological Hx Neurological Disorder: Yes Hx Seizures: Yes - HEENT Hx HEENT Disorder: No - Renal Hx Renal Disorder: No - Endocrine/Metabolic Hx Diabetes Mellitus Type 2: Yes - Hematological/Oncological Hx Blood Disorders: Yes - Integumentary Hx Dermatological Disorder: No - Musculoskeletal/Rheumatological Hx Musculoskeletal Disorders: Yes - Gastrointestinal Hx Gastrointestinal Disorders: No - Genitourinary/Gynecological Hx Genitourinary Disorders: No - Psychiatric Hx Psychophysiologic Disorder: Yes Hx Substance Use: Yes (MARIJUANA USE) - Surgical History Hx Open Heart Surgery: Yes (CABG) - Suicidal Assessment Feels Threatened In Home Enviroment: No <Jose Guadalupe Wiseman A - Last Filed: 03/23/17 01:32> Family/Social History - Physician Review Nursing Documentation Reviewed: Yes Family/Social History: Unknown Family HX Smoking Status: Former Smoker Hx Alcohol Use: No Hx Substance Use: Yes (MARIJUANA USE) Substance used: MARIJUANA Hx Substance Use Treatment: No <Jose Guadalupe Wiseman A - Last Filed: 03/23/17 01:32> Allergies/Home Meds <Jose Guadalupe Wiseman A - Last Filed: 03/23/17 01:32> <Lesley Farley - Last Filed: 03/25/17 11:38> Allergies/Adverse Reactions: Allergies acetaminophen [From Percocet] Allergy (Verified 03/22/17 15:18) .hallucinations oxycodone [From Percocet] Allergy (Verified 03/22/17 15:18) RASH warfarin [From Coumadin] Allergy (Verified 03/22/17 15:18) RASH Home Medications: Home Meds Medication Instructions Recorded Confirmed Levetiracetam [Keppra] 500 mg PO Q12 12/29/16 03/22/17 Review of Systems - Physician Review All systems were reviewed & negative as marked: Yes - Review of Systems Constitutional: Normal Eyes: Normal ENT: Normal Respiratory: SOB. absent: Cough Cardiovascular: absent: Chest Pain Gastrointestinal: Normal Genitourinary Male: Normal Musculoskeletal: Normal Skin: Normal Neurological: Normal Endocrine: Normal Hemo/Lymphatic: Normal Psychiatric: Normal <DiruJose Guadalupe A - Last Filed: 03/23/17 01:32> Physical Exam Vital Signs Reviewed: Yes Temperature: Afebrile Blood Pressure: Hypertensive Pulse: Tachycardic Respiratory Rate: Normal Appearance: Positive for: Well-Appearing, Non-Toxic, Comfortable Pain Distress: None Mental Status: Positive for: Alert and Oriented X 3 - Systems Exam Head: Present: Atraumatic, Normocephalic Pupils: Present: PERRL Extroacular Muscles: Present: EOMI Conjunctiva: Present: Normal Mouth: Present: Moist Mucous Membranes Neck: Present: Normal Range of Motion Respiratory/Chest: Present: Clear to Auscultation, Good Air Exchange. No: Respiratory Distress, Accessory Muscle Use Cardiovascular: Present: Regular Rate and Rhythm, Normal S1, S2. No: Murmurs Abdomen: Present: Normal Bowel Sounds. No: Tenderness, Distention, Peritoneal Signs Back: Present: Normal Inspection Upper Extremity: Present: Normal Inspection. No: Cyanosis, Edema Lower Extremity: Present: Normal Inspection. No: Edema Neurological: Present: GCS=15, CN II-XII Intact, Speech Normal Skin: Present: Warm, Dry, Normal Color. No: Rashes Psychiatric: Present: Alert, Oriented x 3, Normal Insight, Normal Concentration <DiruJose Guadalupe A - Last Filed: 03/23/17 01:32> Vital Signs Temp Pulse Resp BP Pulse Ox 03/22/17 21:23 85 16 145/76 99 03/22/17 20:00 16 03/22/17 18:43 100 H 160/84 H 03/22/17 15:35 98.1 F 108 H 18 177/104 H 99 Medical Decision Making <Jose Guadalupe Wiseman - Last Filed: 03/23/17 01:32> <Lesley Farley - Last Filed: 03/25/17 11:38> ED Course and Treatment: 03/23/17 01:32 PT presented for stated history. He was tachy on presentation, but improved significantly while in ED. Lab was nonspecific EKG Afib with RVR @116bpm. Pt have established history of Afib. He is on loppressor at home. His HR improved in ED and stable. D dimer was elevated and Chest CT was ordered CT angio was negative for PE. On re evaluation pt notes that he feels fine. He as ambulatory and talking in full sentence without distress. His Lung was CTA b/l. All result was DW the pt. He sees a Doctor and channeler outsole at [place] and was advised to f/u with his Doctors. Advised TRT ED for any new or worsening symptoms. (Jose Guadalupe Wiseman A) - Lab Interpretations Lab Results: 03/22/17 15:45 03/22/17 15:45 Lab Results 03/22/17 18:35: Urine Opiates Screen Negative, Urine Methadone Screen Negative, Ur Barbiturates Screen Negative, Ur Phencyclidine Scrn Negative, Ur Amphetamines Screen Negative, U Benzodiazepines Scrn Negative, U Oth Cocaine Metabols Negative, U Cannabinoids Screen Positive H 03/22/17 18:35: Urine Color Yellow, Urine Appearance Clear, Urine pH 6.0, Ur Specific [place] >= 1.030, Urine Protein >=300 H, Urine Glucose (UA) Negative, Urine Ketones Negative, Urine Blood Trace-intact H, Urine Nitrate Negative, Urine Bilirubin Negative, Urine Urobilinogen 1.0 H, Ur Leukocyte Esterase Negative, Urine RBC 0 - 2, Urine WBC 1 - 3, Ur Epithelial Cells 0 - 2, Amorphous Sediment Few, Urine Bacteria Mod, Hyaline Casts 0 - 2, Fine Granular Casts 0 - 2 03/22/17 15:45: Digoxin < 0.4 L 03/22/17 15:45: PT 14.2 H, INR 1.30 H, APTT 32.6, D-Dimer, Quantitative 329 H 03/22/17 15:45: Sodium 141, Potassium 4.2, Chloride 99, Carbon Dioxide 26, Anion Gap 20, BUN 21, Creatinine 1.1, Est GFR ( Amer) > 60, Est GFR (Non- Af Amer) > 60, Random Glucose 172 H, Calcium 10.3, Magnesium 1.9, Total Bilirubin 1.6 H, AST 26, ALT 27, Alkaline Phosphatase 125, Lactate Dehydrogenase 433, Total Creatine Kinase 53, Troponin I 0.03, NT-Pro-B Natriuret Pep 3790 H, Total Protein 8.0, Albumin 4.5, Globulin 3.5, Albumin/ Globulin Ratio 1.3, Lipase 79 03/22/17 15:45: WBC 10.5 D, RBC 5.11, Hgb 14.7, Hct 45.5, MCV 89.0, MCH 28.8, MCHC 32.3, RDW 13.5, Plt Count 235, MPV 11.6 H, Gran % 80.8 H, Lymph % (Auto) 12.4 L, [place] % (Auto) 6.0, Eos % (Auto) 0.6 L, Baso % (Auto) 0.2, Gran # 8.51 H , Lymph # 1.3, [place] # 0.6, Eos # 0.1, Baso # 0.02 - RAD Interpretation Radiology Orders: 03/22/17 15:30 CHEST PORTABLE [RAD] Stat 03/22/17 16:35 ANGIO CHEST PE PROTOCOL [CT] Stat - Medication Orders Current Medication Orders: Discontinued Medications Ondansetron HCl (Zofran Inj) 4 mg IVP STAT STA Stop: 03/22/17 16:33 Last Admin: 03/22/17 18:37 Dose: Pantoprazole Sodium (Protonix Inj) 40 mg IVP STAT STA Stop: 03/22/17 15:34 Last Admin: 03/22/17 15:54 Dose: 40 mg IVP Administration Document 03/22/17 15:54 GMI (Rec: 03/22/17 15:55 GMI [id number]) Charges for Administration # of IVP Administrations 1 - PA / ADMINISTRATIVE SERVICES MANAGER / Resident Statement MD/ has reviewed & agrees with the documentation as recorded. <Lesley Farley - Last Filed: 03/25/17 11:38> Disposition/Present on Arrival - Present on Arrival Any Indicators Present on Arrival: No History of DVT/PE: Yes History of Uncontrolled Diabetes: No Urinary Catheter: No History of Decub. Ulcer: No History Surgical Site Infection Following: None - Disposition Have Diagnosis and Disposition been Completed?: Yes Disposition Time: 20:55 Patient Plan: Discharge <Jose Guadalupe Wiseman - Last Filed: 03/23/17 01:32> <Lesley Farley - Last Filed: 03/25/17 11:38> - Disposition Diagnosis: Dyspnea, Atrial fibrillation with rapid ventricular response Disposition: HOME/ ROUTINE Condition: STABLE Discharge Instructions (ExitCare): Dyspnea (ED) Additional Instructions: Follow up with your doctor Return to Ed for any new or worsening symptoms Referrals: PCP,NO [Primary Care Provider] - Follow up with primary Forms: [employer] ([place])
[2017-03-22 16:36] LABS: TROPONIN I 0.03 ng/mL
[2017-03-22 19:03] LABS: URINE BILIRUBIN NEGATIVE (NEGATIVE); URINE BLOOD TRACE-INTACT (NEGATIVE); URINE GLUCOSE (UA) NEGATIVE (NEGATIVE); URINE KETONE NEGATIVE (NEGATIVE); URINE LEUKOCYTE ESTERASE NEGATIVE Leu/uL (NEGATIVE); URINE PROTEIN >=300 mg/dL (<30 mg/dL)
[2017-03-22 19:08] LABS: URINE APPEARANCE CLEAR (CLEAR); URINE COLOR YELLOW (YELLOW)
[2017-03-22 19:20] LABS: URINE EPITHELIAL CELLS 0 - 2 /hpf (0-5)
[2017-03-22 19:22] LABS: URINE AMORPHOUS SEDIMENT FEW; URINE BACTERIA MOD (NEG); URINE RBC 0 - 2 /hpf (0-2)
--- NOTE | 2017-03-22 20:35 | CT ---
EXAM: CT Angiography Chest With Intravenous Contrast CLINICAL HISTORY: 66 years old, male; Signs and symptoms; Shortness of breath; Additional info: SOB TECHNIQUE: Axial computed tomographic angiography images of the chest with intravenous contrast using pulmonary embolism protocol. All CT scans at this facility use one or more dose reduction techniques, viz.: automated exposure control; ma/kV adjustment per patient size (including targeted exams where dose is matched to indication; i.e. head); or iterative reconstruction technique. MIP reconstructed images were created and reviewed. Coronal and sagittal reformatted images were created and reviewed. CONTRAST: 120 mL of [id number] administered intravenously. COMPARISON: No relevant prior studies available. FINDINGS: Pulmonary arteries: No pulmonary embolism. Aorta: No thoracic aortic aneurysm. No dissection Lungs: No mass. No consolidation. Centrilobular emphysema. An 8mm nodule is identified within the right lower lobe (series 4, image 93). A 9 mm nodule is also present within the right lower lobe (series 4, image 106). Pleural spaces: No significant effusion. No pneumothorax. Heart: No cardiomegaly. No significant pericardial effusion. No evidence of right heart dysfunction. Bones: No acute fracture. Sternal wires are present. Lymph nodes: No pathologically enlarged lymph nodes. IMPRESSION: No pulmonary embolism. Centrilobular emphysema. An 8 and 9 mm nodule are present within the right lower lobe. ACR White Paper guidelines (Antoniohon, et al. Radiology 2017; 284(1):228-43) suggest the following. For low-risk patients recommend follow-up chest CT at 3-6 months. If unchanged consider an additional follow-up CT at 18-24 months. For high-risk patients initial follow-up chest CT at 3-6 months and if unchanged, 18-24 months.
[2017-03-22 21:24] VITALS: BP 145/76; PULSE 85; RESP 16
--- NOTE | 2017-03-23 16:11 | CARD ---
APPROVED REPORT EKG Measurement Heart [id number] <Conclusion> Atrial fibrillation with rapid ventricular response with premature ventricular or aberrantly conducted complexes ST & T wave abnormality, consider lateral ischemia or digitalis effect Abnormal ECG
== END 2017-03-22 21:24 | disposition home or self-care (01) ==
LOC: ED 14:56
DX: I49.01 Ventricular fibrillation (principal); E11.9 Type 2 diabetes mellitus without complications; Z95.1 Presence of aortocoronary bypass graft; Z86.718 Personal history of other venous thrombosis and embolism; Z87.891 Personal history of nicotine dependence
CPT/HCPCS: 71010; 71275; 80053; 80162; 80324; 80345; 80346; 80349; 80353; 80358; 80361; 81001; 82550; 83615; 83690; 83735; 83880; 83992; 84484; 85025; 85378; 85610; 85730; 93005; 96374; 99284; C9113; J2405; Q9967

== ENCOUNTER 2017-08-04 09:47 | Inpatient (IN) | payer OTHER ==
[2017-08-04 09:53] VITALS: BMI 27.0
--- NOTE | 2017-08-04 10:01 | ED PDOC ---
Arrival/HPI - General Time Seen by Provider: 08/04/17 09:59 Historian: Patient - History of Present Illness Narrative History of Present Illness (Text): 08/04/17 10:00 67 yo male with PMhx of Afib, Hep C, seizure, DVT, Diabetes who present with complaint of twin-umbilical abdominal pain for a month. Patient stated pain is intermittent, however, pain has been progressively worsen. Patient denies nausea, vomiting, shortness of breath chest pain, urinary symptoms, dizziness, CASTRO, diplopia, dysarthria, or abnormal gait. Patient noted generalized weakness. Time/Duration: Other (see hpi) Context: Home Past Medical History - Provider Review Nursing Documentation Reviewed: Yes - Infectious Disease Hx of Infectious Diseases: None - Tetanus Immunization Tetanus Immunization: Unknown - Cardiac Other/Comment: triple bypass 2 yrs ago, vein stripping right leg 40 yrs ago - Pulmonary Hx Respiratory Disorders: Yes (Pneumonitis) - Neurological Hx Neurological Disorder: Yes Hx Seizures: Yes - HEENT Hx HEENT Disorder: No - Renal Hx Renal Disorder: No - Endocrine/Metabolic Hx Diabetes Mellitus Type 2: Yes - Hematological/Oncological Hx Blood Disorders: Yes - Integumentary Hx Dermatological Disorder: No - Musculoskeletal/Rheumatological Hx Musculoskeletal Disorders: Yes - Gastrointestinal Hx Gastrointestinal Disorders: No - Genitourinary/Gynecological Hx Genitourinary Disorders: No - Psychiatric Hx Psychophysiologic Disorder: Yes Hx Substance Use: Yes (MARIJUANA USE) - Surgical History Hx Open Heart Surgery: Yes (CABG) - Suicidal Assessment Feels Threatened In Home Enviroment: No Family/Social History - Physician Review Nursing Documentation Reviewed: Yes Family/Social History: Other (noncontributory) Smoking Status: Former Smoker Hx Alcohol Use: No Hx Substance Use: Yes (MARIJUANA USE) Substance used: MARIJUANA Hx Substance Use Treatment: No Allergies/Home Meds Allergies/Adverse Reactions: Allergies acetaminophen [From Percocet] Allergy (Verified 03/22/17 15:18) .hallucinations oxycodone [From Percocet] Allergy (Verified 03/22/17 15:18) RASH warfarin [From Coumadin] Allergy (Verified 03/22/17 15:18) RASH Home Medications: Home Meds Medication Instructions Recorded Confirmed Levetiracetam [Keppra] 500 mg PO Q12 12/29/16 03/22/17 Review of Systems - Review of Systems Constitutional: Normal. absent: Fatigue, Weight Change, Fevers Eyes: Normal ENT: Normal Respiratory: Normal. absent: SOB, Cough Cardiovascular: Normal. absent: Chest Pain, Palpitations Gastrointestinal: Abdominal Pain. absent: Nausea, Vomiting Genitourinary Male: Normal Musculoskeletal: Normal Skin: Normal. absent: Rash Neurological: Normal. absent: Headache, Dizziness Endocrine: Normal Hemo/Lymphatic: Normal Psychiatric: Normal Physical Exam Vital Signs Temp Pulse Resp BP Pulse Ox 08/04/17 11:52 89 17 134/88 98 08/04/17 10:03 97.9 F 107 H 18 147/96 H 96 Temperature: Afebrile Blood Pressure: Normal Pulse: Regular Respiratory Rate: Normal Appearance: Positive for: Well-Appearing, Non-Toxic, Comfortable Pain Distress: None Mental Status: Positive for: Alert and Oriented X 3 - Systems Exam Head: Present: Atraumatic, Normocephalic Pupils: Present: PERRL Extroacular Muscles: Present: EOMI Conjunctiva: Present: Normal Mouth: Present: Moist Mucous Membranes Pharnyx: Present: Normal Neck: Present: Normal Range of Motion Respiratory/Chest: Present: Clear to Auscultation, Good Air Exchange, Other ( mid sternum scar). No: Respiratory Distress, Accessory Muscle Use, Wheezes, Decreased Breath Sounds, Retracting Cardiovascular: Present: Regular Rate and Rhythm, Normal S1, S2. No: Murmurs Abdomen: Present: Hernias ((+) tiwn-umbilical hernia, non tender). No: Tenderness, Distention, Peritoneal Signs, Rebound, Guarding Back: Present: Normal Inspection. No: CVA Tenderness Upper Extremity: Present: Normal Inspection, Normal ROM. No: Cyanosis, Edema Lower Extremity: Present: Normal Inspection, Normal ROM. No: Edema Neurological: Present: GCS=15, CN II-XII Intact, Speech Normal Skin: Present: Warm, Dry, Normal Color. No: Rashes Psychiatric: Present: Alert, Oriented x 3, Normal Insight, Normal Concentration Medical Decision Making ED Course and Treatment: 08/04/17 13:[address] Avalos Regarding patient symptoms, and ct findings. He recommended to have patient admitted under hospitalist. 08/04/17 14:[address] Tim Hospitalist regarding patient complaining of abdominal pain, and reviewed labs and CT scan result. Patient conitines with abdominal pain. I recommended observation Re-evaluation Time: 13:20 Reassessment Condition: Re-examined, Improving,but remains with symptoms - Lab Interpretations Lab Results: 08/04/17 10:10 08/04/17 10:10 Lab Results 08/04/17 12:40: Urine Color Yellow, Urine Appearance Sl cloudy, Urine pH 6.0, Ur Specific [place] 1.025, Urine Protein 30 H, Urine Glucose (UA) Negative, Urine Ketones Negative, Urine Blood Negative, Urine Nitrate Negative, Urine Bilirubin Negative, Urine Urobilinogen 0.2, Ur Leukocyte Esterase Negative, Urine RBC Negative, Urine WBC Negative, Urine Other Mucus 08/04/17 10:50: pO2 27 L, VBG pH 7.36, VBG pCO2 54.0, VBG HCO3 30.5 H, VBG Total CO2 32.2 H, VBG O2 Sat (Calc) 53.6, VBG Base Excess 3.7 H, VBG Potassium 3.1 L, Glucose 165 H, Lactate 1.2, FiO2 21.0, Sodium 140.0, Chloride 105.0, Venous Blood Potassium 3.1 L 08/04/17 10:10: Sodium 142, Potassium 3.6, Chloride 103, Carbon Dioxide 27, Anion Gap 16, BUN 16, Creatinine 0.9, Est GFR ( Amer) > 60, Est GFR (Non- Af Amer) > 60, Random Glucose 173 H, Calcium 9.0, Total Bilirubin 0.4, AST 18, ALT 17, Alkaline Phosphatase 140 H, Lactate Dehydrogenase 410, Total Creatine Kinase 23 L, Troponin I 0.04 D, Total Protein 6.4, Albumin 3.4, Globulin 3.0, Albumin/Globulin Ratio 1.1, Amylase 57, Lipase 75 08/04/17 10:10: PT 15.3 H, INR 1.32 H, APTT 34.8 08/04/17 10:10: WBC 8.0 D, RBC 4.30, Hgb 12.0 L D, Hct 37.4 L, MCV 87.0, MCH 27.9, MCHC 32.1, RDW 14.0, Plt Count 232, MPV 10.0, Gran % 84.1 H, Lymph % (Auto ) 9.0 L, [place]th[place]omew % (Auto) 5.7, Eos % (Auto) 1.0 L, Baso % (Auto) 0.2, Gran # 6.75 H , Lymph # (Auto) 0.7 L, Bartholomew # (Auto) 0.5, Eos # (Auto) 0.1, Baso # (Auto) 0.02 I have reviewed the lab results: Yes Interpretation: Abnormal lab values - RAD Interpretation Narrative RAD Interpretations (Text): 08/04/17 12:51 PROCEDURE: CT Abdomen and Pelvis with contrast HISTORY: Periumbilical pain. COMPARISON: 03/22/2017 CT thorax. TECHNIQUE: Contrast dose: 100 cc Omnipaque 350 Radiation dose: Total exam DLP = 937.66 mGy-cm. This CT exam was performed using one or more of the following dose reduction techniques: Automated exposure control, adjustment of the mA and/or kV according to patient size, and/or use of iterative reconstruction technique. FINDINGS: LOWER THORAX: Subcentimeter pulmonary nodule lateral segment right lower lobe. This was seen on the prior study and is without interval change Minimal dependent atelectasis. LIVER: Hepatic metastatic disease. Bulky tumor identified in the left lobe extending to the katelyn hepatis region. Additional smaller pulmonary masses identified in the right hepatic lobe. GALLBLADDER AND BILE DUCTS: Unremarkable. PANCREAS: Necrotic pancreatic head mass invading the hepatic artery, sparing the splenic artery. The mass is necrotic and infiltrative measuring approximately 3.9 x 4.4 cm. Regional lymphadenopathy identified and there is tumor extending to the katelyn hepatis region displacing the main portal vein. SPLEEN: Unremarkable. ADRENALS: Unremarkable. No mass. KIDNEYS AND URETERS: Unremarkable. No hydronephrosis. No solid mass. Incidental finding(s): Simple cyst upper pole right kidney 2.4 cm. VASCULATURE: Unremarkable. No aortic aneurysm. BOWEL: Unremarkable. No obstruction. No gross mural thickening. APPENDIX: Normal appendix. PERITONEUM: Large volume abdominal and pelvic ascites identified. LYMPH NODES: Retroperitoneal -peripancreatic lymphadenopathy identified. Lymphadenopathy is inseparable from the pancreatic mass and there is tumor burden in the katelyn hepatis region. Smaller periaortic lymph nodes are identified preponderance of which however are less than 1 cm. BLADDER: Unremarkable. REPRODUCTIVE: Unremarkable. BONES: No acute fracture. OTHER FINDINGS: None. IMPRESSION: 1. Necrotic mass in the head of the pancreas with a diffuse and infiltrative component to adjacent lymph node chains extending to the katelyn hepatis. 2. Hepatic metastatic disease. 3. Intra-abdominal and pelvic ascites presumed to be malignant. Communication of results: I discussed findings directly with the physician web marketing assistant involved in the care and management the patient at 12:41. 08/04/17 13:20 CXR: NAD Radiology Orders: 08/04/17 10:20 CHEST PORTABLE [RAD] Stat 08/04/17 10:21 ABD & PELVIS IV CONTRAST ONLY [CT] Stat - EKG Interpretation Interpreted by ED Physician: Yes (A-Fib @ [address] changes) Type: 12 lead EKG Comparison: No previous EKG avail. - Medication Orders Current Medication Orders: Discontinued Medications Famotidine (Pepcid) 20 mg IVP STAT STA Stop: 08/04/17 10:21 Last Admin: 08/04/17 10:41 Dose: 20 mg IVP Administration Document 08/04/17 10:41 [facility] (Rec: 08/04/17 10:41 [facility] [id number]) Charges for Administration # of IVP Administrations 1 Morphine Sulfate (Morphine) 4 mg IVP STAT STA Stop: 08/04/17 12:58 Last Admin: 08/04/17 13:16 Dose: 4 mg MAR Pain Assessment Document 08/04/17 13:16 [facility] (Rec: 08/04/17 13:17 [facility] [id number]) Pain Reassessment Is this a pain reassessment? Yes Sleep Is patient sleeping during reassessment? No Presence of Pain Presence of Pain Yes Pain Scale Used Pain Scale Used Numeric Location Pain Location Body Site Abdomen Description Intensity of Pain at present 8 IVP Administration Document 08/04/17 13:16 [facility] (Rec: 08/04/17 13:17 [facility] [id number]) Charges for Administration # of IVP Administrations 1 Ondansetron HCl (Zofran Inj) 4 mg IVP STAT STA Stop: 08/04/17 12:58 Last Admin: 08/04/17 13:16 Dose: 4 mg IVP Administration Document 08/04/17 13:16 [facility] (Rec: 08/04/17 13:16 [facility] [id number]) Charges for Administration # of IVP Administrations 1 Disposition/Present on Arrival - Present on Arrival Any Indicators Present on Arrival: No History of DVT/PE: Yes History of Uncontrolled Diabetes: No Urinary Catheter: No History Surgical Site Infection Following: None - Disposition Have Diagnosis and Disposition been Completed?: Yes Diagnosis: Intractable abdominal pain, Metastases to the liver, Pancreatic mass, Ascites Disposition: HOSPITALIZED Disposition Time: 13:22 Patient Plan: Admission Patient Problems: Current Active Problems Problem Status Onset Intractable abdominal pain Acute Metastases to the liver Acute Pancreatic mass Acute Ascites Acute Condition: STABLE
[2017-08-04 10:41] LABS: BASO # 0.02 K/mm3 (0.0-2.0); BASO % 0.2 % (0.0-3.0); EOS # 0.1 (0.0-0.7); GRAN # 6.75 (1.4-6.5); GRAN % 84.1 % (50.0-68.0); LYMPH # 0.7 (1.2-3.4); MEAN CORPUSCULAR HEMOGLOBIN 27.9 pg (25.0-35.0); MEAN CORPUSCULAR HGB CONC 32.1 g/dl (31.0-37.0); MONO # 0.5 (0.1-0.6); MONO % 5.7 % (1.0-6.0); RBC 4.3 10^6/uL (3.5-6.1)
[2017-08-04 10:51] LABS: ALB/GLOB RATIO 1.1 (1.1-1.8); ALBUMIN 3.4 g/dL (3.0-4.8); ALT/SGPT 17 U/L (7-56); AMYLASE 57 U/L (35-125); AST/SGOT 18 U/L (17-59); BLOOD UREA NITROGEN 16 mg/dL (7-21); GFR AFRICAN-AMERICAN > 60; GFR NON-AFRICAN AMERICAN > 60; LIPASE 75 U/L (23-300)
[2017-08-04 11:01] LABS: VENOUS BLOOD GAS BASE EXCESS 3.7 mmol/L (0.0-2.0); VENOUS BLOOD GAS PO2 27 mm/Hg (30-55); VENOUS BLOOD PH 7.36 (7.32-7.43)
[2017-08-04 11:02] LABS: INR 1.32 (0.93-1.08); PARTIAL THROMBOPLASTIN TIME 34.8 Seconds (25.1-36.5); PROTHROMBIN TIME 15.3 SECONDS (9.4-12.5); TROPONIN I 0.04 ng/mL
[2017-08-04] MEDS ORDERED: Iohexol 350 MG/100 ML VIAL ONE (11:07)
--- NOTE | 2017-08-04 11:08 | RAD ---
HISTORY: Abdominal pain COMPARISON: 03/22/2017. FINDINGS: LUNGS: The lungs are well inflated and clear. PLEURA: No significant pleural effusion identified, no pneumothorax apparent. CARDIOVASCULAR: The heart is normal in size. Status post CABG. OSSEOUS STRUCTURES: No significant abnormalities. VISUALIZED UPPER ABDOMEN: Normal. OTHER FINDINGS: None. IMPRESSION: No active pulmonary disease.
--- NOTE | 2017-08-04 12:50 | CT ---
PROCEDURE: CT Abdomen and Pelvis with contrast HISTORY: Periumbilical pain. COMPARISON: 03/22/2017 CT thorax. TECHNIQUE: Contrast dose: 100 cc Omnipaque 350 Radiation dose: Total exam DLP = 937.66 mGy-cm. This CT exam was performed using one or more of the following dose reduction techniques: Automated exposure control, adjustment of the mA and/or kV according to patient size, and/or use of iterative reconstruction technique. FINDINGS: LOWER THORAX: Subcentimeter pulmonary nodule lateral segment right lower lobe. This was seen on the prior study and is without interval change Minimal dependent atelectasis. LIVER: Hepatic metastatic disease. Bulky tumor identified in the left lobe extending to the katelyn hepatis region. Additional smaller pulmonary masses identified in the right hepatic lobe. GALLBLADDER AND BILE DUCTS: Unremarkable. PANCREAS: Necrotic pancreatic head mass invading the hepatic artery, sparing the splenic artery. The mass is necrotic and infiltrative measuring approximately 3.9 x 4.4 cm. Regional lymphadenopathy identified and there is tumor extending to the katelyn hepatis region displacing the main portal vein. SPLEEN: Unremarkable. ADRENALS: Unremarkable. No mass. KIDNEYS AND URETERS: Unremarkable. No hydronephrosis. No solid mass. Incidental finding(s): Simple cyst upper pole right kidney 2.4 cm. VASCULATURE: Unremarkable. No aortic aneurysm. BOWEL: Unremarkable. No obstruction. No gross mural thickening. APPENDIX: Normal appendix. PERITONEUM: Large volume abdominal and pelvic ascites identified. LYMPH NODES: Retroperitoneal -peripancreatic lymphadenopathy identified. Lymphadenopathy is inseparable from the pancreatic mass and there is tumor burden in the katelyn hepatis region. Smaller periaortic lymph nodes are identified preponderance of which however are less than 1 cm. BLADDER: Unremarkable. REPRODUCTIVE: Unremarkable. BONES: No acute fracture. OTHER FINDINGS: None. IMPRESSION: 1. Necrotic mass in the head of the pancreas with a diffuse and infiltrative component to adjacent lymph node chains extending to the katelyn hepatis. 2. Hepatic metastatic disease. 3. Intra-abdominal and pelvic ascites presumed to be malignant. Communication of results: I discussed findings directly with the physician general office assistant involved in the care and management the patient at 12:41.
[2017-08-04 12:56] LABS: URINE BILIRUBIN NEGATIVE (NEGATIVE); URINE BLOOD NEGATIVE (NEGATIVE); URINE GLUCOSE (UA) NEGATIVE (NEGATIVE); URINE LEUKOCYTE ESTERASE NEGATIVE Leu/uL (NEGATIVE); URINE PROTEIN 30 mg/dL (<30 mg/dL); URINE UROBILINOGEN 0.2 E.U./dL (<1 E.U./dL)
[2017-08-04] MEDS ORDERED: Morphine 4 mg/ml ISec IVP STA (12:57)
[2017-08-04 12:58] LABS: URINE APPEARANCE SL CLOUDY (CLEAR); URINE COLOR YELLOW (YELLOW)
[2017-08-04 13:03] LABS: URINE RBC NEGATIVE /hpf (0-2); URINE WBC NEGATIVE /hpf (0-6)
--- NOTE | 2017-08-04 14:20 | CP.PCM.HP ---
<Phong Simon - Last Filed: 08/04/17 15:02> History of Present Illness - History of Present Illness History of Present Illness: Subjective: CC: Abdominal Pain HPI: Patient is a 67 year old male with PMhx of Afib, Hep C, seizure, DVT, Diabetes who presents to the ED for evaluation and treatment of twin-umbilical abdominal pain which began several months ago without a specific provoking event. Patient stated pain remains localized near the periumbilical region, is burning/ intermittent in nature, and has been progressively worsened since onset. Associated with N/V, the last episode occurring 1 week ago which was nonbilious and nonbloody in nature. Denies exacerbating and remitting factors. Denies fever , chills, chest pain, SOB at rest, diarrhea, constipation, and urinary symptoms. PMH: CAD s/p CABG, visual problems, atrial fibrillation ( on xarelto), h/o DVTs , IDDM2, peripheral neuropathy PSH: CABG in 2010 FMH: CAD and htn in the family. SH: former smoker tobacco, quit over 2 decades ago, denies etoh, occasional marijuana use, Lives alone, walks with a cane, gets his medical care at the [facility]. ALL: Acetaminophen and oxycodone Meds: See EMAR for complete list Primary care physician: [facility] Physical Examination: - Constitutional Appears: NAD - Head Exam Head Exam: ATRAUMATIC, NORMAL INSPECTION, NORMOCEPHALIC - Eye Exam Eye Exam: EOMI, Normal appearance, PERRL - ENT Exam ENT Exam: Mucous Membranes Moist, Normal Exam - Neck Exam Neck exam: Positive for: Normal Inspection - Respiratory Exam Respiratory Exam: NORMAL BREATHING PATTERN, CTA bilaterally - Cardiovascular Exam Cardiovascular Exam: REGULAR RHYTHM - GI/Abdominal Exam GI & Abdominal Exam: Normal Bowel Sounds, Soft, Mildy tender to touch, fluid wave noted - Extremities Exam Extremities exam: Positive for: normal inspection - Back Exam Back exam: NORMAL INSPECTION - Neurological Exam Neurological exam: Alert, CN II-XII Intact, Normal Gait, Oriented x3, Reflexes Normal - Psychiatric Exam Psychiatric exam: Normal Affect, Normal Mood Assessment and Plan: Patient is a 67 year old male with PMHx of Afib, Hep C, seizure, DVT, Diabetes who was admitted for evaluation and treatment for ED for evaluation and treatment of twin-umbilical abdominal pain. Abdominal Pain - CT of abdomen/pelvis: 1. Necrotic mass in the head of the pancreas with a diffuse and infiltrative component to adjacent lymph node chains extending to the katelyn hepatis. 2. Hepatic metastatic disease. 3. Intra-abdominal and pelvic ascites presumed to be malignant. - Hematology/oncology consulted- appreciate recommendations - GI consulted- appreciate recommendations - IV consulted for biopsy- appreciate recommendations Hx of Seizure disorders - will continue with keppra 500 mg bid - will obtain keppra level - Seizure and fall precaution Hx of CAD s/p CABG - continue with Lopressor - continue with Lipitor Hx of Atrial fibrillation - EKG- atrial fibrillation with RVR- rate control with lopessor - continue Lopressor and xarelto - PT-INR trend Hx of IDDM2 - ACHS - hold home insulin - moderate carb controlled diet - will hold metformin Hx of Peripheral neuropathy -continue with gabapentin Hx of Anxiety - continue xanax 0.5 mg bid prn Gait instability - PT eval- appreciate input Prophylaxis - DVT prophylaxis- hold xarelto, SCDS in patient - GI prophylaxis - on protonix Patient case discussed with, and plan approved by attending physician, Dr. Tim. Present on Admission - Present on Admission Any Indicators Present on Admission: No Past Patient History - Infectious Disease Hx of Infectious Diseases: None - Tetanus Immunizations Tetanus Immunization: Unknown - Past Medical History & Family History Past Medical History?: Yes - Past Social History Smoking Status: Former Smoker - CARDIAC Other/Comment: triple bypass 2 yrs ago, vein stripping right leg 40 yrs ago - PULMONARY Hx Respiratory Disorders: Yes (Pneumonitis) - NEUROLOGICAL Hx Neurological Disorder: Yes Hx Seizures: Yes - HEENT Hx HEENT Problems: No - RENAL Hx Chronic Kidney Disease: No - ENDOCRINE/METABOLIC Hx Diabetes Mellitus Type 2: Yes - HEMATOLOGICAL/ONCOLOGICAL Hx Blood Disorders: Yes - INTEGUMENTARY Hx Dermatological Problems: No - MUSCULOSKELETAL/RHEUMATOLOGICAL Hx Musculoskeletal Disorders: Yes - GASTROINTESTINAL Hx Gastrointestinal Disorders: No - GENITOURINARY/GYNECOLOGICAL Hx Genitourinary Disorders: No - PSYCHIATRIC Hx Psychophysiologic Disorder: Yes Hx Substance Use: Yes (MARIJUANA USE) - SURGICAL HISTORY Hx Open Heart Surgery: Yes (CABG) - ANESTHESIA Hx Anesthesia: Yes Hx Anesthesia Reactions: No Hx Malignant Hyperthermia: No Meds Allergies/Adverse Reactions: Allergies Allergy/AdvReac Type Severity Reaction Status Date / Time acetaminophen [From Percocet] Allergy .hallucinat Verified 03/22/17 15:18 ions oxycodone [From Percocet] Allergy RASH Verified 03/22/17 15:18 warfarin [From Coumadin] Allergy RASH Verified 03/22/17 15:18 Results - Vital Signs Recent Vital Signs: Last Vital Signs Temp 97.9 F 08/04/17 10:03 Pulse 89 08/04/17 11:52 Resp 17 08/04/17 11:52 BP 134/88 08/04/17 11:52 Pulse Ox 98 08/04/17 11:52 - Labs Result Diagrams: 08/04/17 10:10 08/04/17 10:10 Labs: Laboratory Results - last 24 hr 08/04/17 08/04/17 08/04/17 10:10 10:10 10:10 WBC 8.0 D RBC 4.30 Hgb 12.0 L D Hct 37.4 L MCV 87.0 MCH 27.9 MCHC 32.1 RDW 14.0 Plt Count 232 MPV 10.0 Gran % 84.1 H Lymph % (Auto) 9.0 L Ray % (Auto) 5.7 Eos % (Auto) 1.0 L Baso % (Auto) 0.2 Gran # 6.75 H Lymph # (Auto) 0.7 L Ray # (Auto) 0.5 Eos # (Auto) 0.1 Baso # (Auto) 0.02 PT 15.3 H INR 1.32 H APTT 34.8 pO2 VBG pH VBG pCO2 VBG HCO3 VBG Total CO2 VBG O2 Sat (Calc) VBG Base Excess VBG Potassium Glucose Lactate FiO2 Sodium 142 Potassium 3.6 Chloride 103 Carbon Dioxide 27 Anion Gap 16 BUN 16 Creatinine 0.9 Est GFR ( Amer) > 60 Est GFR (Non-Af Amer) > 60 Random Glucose 173 H Calcium 9.0 Total Bilirubin 0.4 AST 18 ALT 17 Alkaline Phosphatase 140 H Lactate Dehydrogenase 410 Total Creatine Kinase 23 L Troponin I 0.04 D Total Protein 6.4 Albumin 3.4 Globulin 3.0 Albumin/Globulin Ratio 1.1 Amylase 57 Lipase 75 Venous Blood Potassium Urine Color Urine Appearance Urine pH Ur Specific [place] Urine Protein Urine Glucose (UA) Urine Ketones Urine Blood Urine Nitrate Urine Bilirubin Urine Urobilinogen Ur Leukocyte Esterase Urine RBC Urine WBC Urine Other 08/04/17 08/04/17 10:50 12:40 WBC RBC Hgb Hct MCV MCH MCHC RDW Plt Count MPV Gran % Lymph % (Auto) Ray % (Auto) Eos % (Auto) Baso % (Auto) Gran # Lymph # (Auto) Ray # (Auto) Eos # (Auto) Baso # (Auto) PT INR APTT pO2 27 L VBG pH 7.36 VBG pCO2 54.0 VBG HCO3 30.5 H VBG Total CO2 32.2 H VBG O2 Sat (Calc) 53.6 VBG Base Excess 3.7 H VBG Potassium 3.1 L Glucose 165 H Lactate 1.2 FiO2 21.0 Sodium 140.0 Potassium Chloride 105.0 Carbon Dioxide Anion Gap BUN Creatinine Est GFR ( Amer) Est GFR (Non-Af Amer) Random Glucose Calcium Total Bilirubin AST ALT Alkaline Phosphatase Lactate Dehydrogenase Total Creatine Kinase Troponin I Total Protein Albumin Globulin Albumin/Globulin Ratio Amylase Lipase Venous Blood Potassium 3.1 L Urine Color Yellow Urine Appearance Sl cloudy Urine pH 6.0 Ur Specific [place] 1.025 Urine Protein 30 H Urine Glucose (UA) Negative Urine Ketones Negative Urine Blood Negative Urine Nitrate Negative Urine Bilirubin Negative Urine Urobilinogen 0.2 Ur Leukocyte Esterase Negative Urine RBC Negative Urine WBC Negative Urine Other Mucus <Germain Tim - Last Filed: 08/05/17 14:45> Results - Vital Signs Recent Vital Signs: Last Vital Signs Temp 98.1 F 08/05/17 08:14 Pulse 65 08/05/17 08:14 Resp 20 08/05/17 08:14 BP 141/94 H 08/05/17 08:14 Pulse Ox 96 08/05/17 08:14 - Labs Result Diagrams: 08/05/17 05:30 08/05/17 05:30 Labs: Laboratory Results - last 24 hr 08/04/17 08/04/17 08/04/17 16:31 16:31 21:16 WBC RBC Hgb Hct MCV MCH MCHC RDW Plt Count MPV Gran % Lymph % (Auto) Ray % (Auto) Eos % (Auto) Baso % (Auto) Gran # Lymph # (Auto) Ray # (Auto) Eos # (Auto) Baso # (Auto) PT INR Sodium Potassium Chloride Carbon Dioxide Anion Gap BUN Creatinine Est GFR ( Amer) Est GFR (Non-Af Amer) POC Glucose (mg/dL) 179 H Random Glucose Hemoglobin A1c 8.5 H D Calcium Magnesium Total Bilirubin AST ALT Alkaline Phosphatase Total Protein Albumin Globulin Albumin/Globulin Ratio Hepatitis A IgM Ab Negative Hep Bs Antigen Negative Hep B Core IgM Ab Negative Hepatitis C Antibody Reactive 08/05/17 08/05/17 08/05/17 05:30 05:30 05:30 WBC 6.9 RBC 3.91 Hgb 10.6 L Hct 34.0 L MCV 87.0 MCH 27.1 MCHC 31.2 RDW 14.3 Plt Count 220 MPV 10.1 Gran % 80.4 H Lymph % (Auto) 9.2 L Ray % (Auto) 9.1 H Eos % (Auto) 1.0 L Baso % (Auto) 0.3 Gran # 5.51 Lymph # (Auto) 0.6 L Ray # (Auto) 0.6 Eos # (Auto) 0.1 Baso # (Auto) 0.02 PT 14.1 H INR 1.22 H Sodium 137 Potassium 3.5 L Chloride 102 Carbon Dioxide 27 Anion Gap 12 BUN 15 Creatinine 0.9 Est GFR ( Amer) > 60 Est GFR (Non-Af Amer) > 60 POC Glucose (mg/dL) Random Glucose 182 H Hemoglobin A1c Calcium 8.5 Magnesium Total Bilirubin 0.5 AST 17 ALT 20 Alkaline Phosphatase 123 Total Protein 5.5 L Albumin 2.8 L Globulin 2.7 Albumin/Globulin Ratio 1.0 L Hepatitis A IgM Ab Hep Bs Antigen Hep B Core IgM Ab Hepatitis C Antibody 08/05/17 08/05/17 08/05/17 05:30 07:07 11:10 WBC RBC Hgb Hct MCV MCH MCHC RDW Plt Count MPV Gran % Lymph % (Auto) Ray % (Auto) Eos % (Auto) Baso % (Auto) Gran # Lymph # (Auto) Ray # (Auto) Eos # (Auto) Baso # (Auto) PT INR Sodium Potassium Chloride Carbon Dioxide Anion Gap BUN Creatinine Est GFR ( Amer) Est GFR (Non-Af Amer) POC Glucose (mg/dL) 177 H 171 H Random Glucose Hemoglobin A1c Calcium Magnesium 1.9 Total Bilirubin AST ALT Alkaline Phosphatase Total Protein Albumin Globulin Albumin/Globulin Ratio Hepatitis A IgM Ab Hep Bs Antigen Hep B Core IgM Ab Hepatitis C Antibody Attending/Attestation - Attestation I have personally seen and examined this patient.: Yes I have fully participated in the care of the patient.: Yes I have reviewed all pertinent clinical information: Yes Notes (Text): 08/05/17 14:42 attending note; Patient seen and examined with resident. Patient is a 67 year old male with PMhx of Afib, Hep C, seizure, Diabetes who presents to the ED for evaluation and treatment of twin-umbilical abdominal pain which began several months ago without a specific provoking event. CT abdomen and pelvic showed necrotic pancreatic mass and liver metastases and ascites. Abdominal pain; started on IV morphine. GI evaluation requested. Case discussed with IR for possible biopsy tomorrow. A. fib; rate controlled. Continue metoprolol. Xarelto on hold. possible diagnosis of malignancy discussed with patient in detail. Patient follows up with [facility] clinic. We will get old records. upon discharge the [facility] [place].
[2017-08-04] MEDS ORDERED: Metoprolol 1 mg/ml Inj IVP PRN (15:07)
[2017-08-04] MEDS: Insulin Lispro (humaLOG) MEDIUM Coverage SC SCH ×2 (17:56→21:21)
--- NOTE | 2017-08-04 20:27 | CARD ---
APPROVED REPORT EKG Measurement Heart [id number] <Conclusion> Atrial fibrillation with rapid ventricular response Possible Anterior infarct, age undetermined ST & T wave abnormality, consider lateral ischemia or digitalis effect Abnormal ECG
[2017-08-04 20:42] LABS: HEPATITIS B SURFACE AG Negative (NEGATIVE)
[2017-08-04 20:47] LABS: HEPATITIS A IGM NEGATIVE (NEGATIVE)
[2017-08-04 20:48] LABS: HEPATITIS B CORE AB NEGATIVE (NEGATIVE)
[2017-08-04 22:22] LABS: HEPATITIS C ANTIBODY REACTIVE (NEGATIVE)
[2017-08-04] MEDS: Morphine 4 mg/ml ISec IVP PRN (22:24)
[2017-08-05] MEDS: Pantoprazole 40 mg EC Tab PO SCH (06:07)
[2017-08-05 06:31] LABS: BASO # 0.02 K/mm3 (0.0-2.0); BASO % 0.3 % (0.0-3.0); EOS # 0.1 (0.0-0.7); GRAN # 5.51 (1.4-6.5); GRAN % 80.4 % (50.0-68.0); HEMOGLOBIN 10.6 g/dL (14.0-18.0); LYMPH # 0.6 (1.2-3.4); LYMPH % 9.2 % (22.0-35.0); MEAN CORPUSCULAR HEMOGLOBIN 27.1 pg (25.0-35.0); MEAN CORPUSCULAR HGB CONC 31.2 g/dl (31.0-37.0); MEAN PLATELET VOLUME 10.1 fl (7.0-11.0); MONO # 0.6 (0.1-0.6); MONO % 9.1 % (1.0-6.0); RBC 3.91 10^6/uL (3.5-6.1); RED CELL DISTRIBUTION WIDTH 14.3 % (11.5-14.5); WHITE BLOOD COUNT 6.9 10^3/ul (4.5-11.0)
[2017-08-05 06:41] LABS: ALBUMIN 2.8 g/dL (3.0-4.8); ALT/SGPT 20 U/L (7-56); AST/SGOT 17 U/L (17-59); BLOOD UREA NITROGEN 15 mg/dL (7-21); CALCIUM 8.5 mg/dL (8.4-10.5); GFR AFRICAN-AMERICAN > 60; GFR NON-AFRICAN AMERICAN > 60
[2017-08-05 06:49] LABS: INR 1.22 (0.93-1.08); PROTHROMBIN TIME 14.1 SECONDS (9.4-12.5)
[2017-08-05] MEDS ORDERED: Potassium Chloride 40 mEq/30 ml LIQ UD PO ONE (07:24)
[2017-08-05] MEDS: Insulin Lispro (humaLOG) MEDIUM Coverage SC SCH ×4 (08:09→21:38)
--- NOTE | 2017-08-05 09:18 | CP.PCM.PN ---
<Phong Simon - Last Filed: 08/05/17 10:07> Subjective - Date & Time of Evaluation Date of Evaluation: 08/05/17 Time of Evaluation: 07:20 - Subjective Subjective: Subjective: Patient seen and examined. No acute events no overnight. Spoke with patient's healthcare corporate account director with patients permission. Thoroughly addressed all questions. Offers no new complaints at this time. Denies fever, chills, chest pain, shortness of breath, abdominal pain, nausea, vomiting, diarrhea, constipation, and urinary symptoms. Physical Examination: - Constitutional Appears: NAD - Head Exam Head Exam: ATRAUMATIC, NORMAL INSPECTION, NORMOCEPHALIC - Eye Exam Eye Exam: EOMI, Normal appearance, PERRL - ENT Exam ENT Exam: Mucous Membranes Moist, Normal Exam - Neck Exam Neck exam: Positive for: Normal Inspection - Respiratory Exam Respiratory Exam: NORMAL BREATHING PATTERN, CTA bilaterally - Cardiovascular Exam Cardiovascular Exam: REGULAR RHYTHM - GI/Abdominal Exam GI & Abdominal Exam: Normal Bowel Sounds, Soft, Mildy tender to touch, fluid wave noted - Extremities Exam Extremities exam: Positive for: normal inspection - Back Exam Back exam: NORMAL INSPECTION - Neurological Exam Neurological exam: Alert, CN II-XII Intact, Normal Gait, Oriented x3, Reflexes Normal - Psychiatric Exam Psychiatric exam: Normal Affect, Normal Moo Assessment and Plan: Patient is a 67 year old male with PMHx of Afib, Hep C, seizure, DVT, Diabetes who was admitted for evaluation and treatment for ED for evaluation and treatment of twin-umbilical abdominal pain. Abdominal Pain - CT of abdomen/pelvis: 1. Necrotic mass in the head of the pancreas with a diffuse and infiltrative component to adjacent lymph node chains extending to the katelyn hepatis. 2. Hepatic metastatic disease. 3. Intra-abdominal and pelvic ascites presumed to be malignant. - Hematology/oncology consulted- appreciate recommendations - GI consulted- appreciate recommendations - IR consulted for biopsy- appreciate recommendations-- scheduled for biopsy on 08/05/17 Hx of Seizure disorders - will continue with keppra 500 mg bid - will obtain keppra level- pending - Seizure and fall precaution Hx of CAD s/p CABG - continue with Lopressor - continue with Lipitor Hx of Atrial fibrillation - EKG- atrial fibrillation with RVR- rate control with lopessor - continue Lopressor - hold xarelto and aspirin due to procedure today - PT-INR trend Hx of IDDM2 - ACHS - hold home insulin - moderate carb controlled diet - will hold metformin Hx of Peripheral neuropathy -continue with gabapentin Hx of Anxiety - continue xanax 0.5 mg bid prn Gait instability - PT eval- appreciate input Prophylaxis - DVT prophylaxis- hold xarelto, SCDs in patient - GI prophylaxis - on protonix Patient case discussed with, and plan approved by attending physician, Dr. Tim. Objective - Vital Signs/Intake and Output Vital Signs (last 24 hours): Temp Pulse Resp BP Pulse Ox 98.1 F 65 20 141/94 H 96 08/05/17 08:14 08/05/17 08:14 08/05/17 08:14 08/05/17 08:14 08/05/17 08:14 Intake and Output: 08/05/17 08/05/17 06:59 18:59 Intake Total 480 Output Total 400 Balance 80 - Medications Medications: Current Medications Alprazolam (Xanax) 0.5 mg PO DAILY [facility] PRN Reason: Protocol Atorvastatin Calcium (Lipitor) 40 mg PO DIN [facility] Last Admin: 08/04/17 17:56 Dose: 40 mg Gabapentin (Neurontin) 300 mg PO TID CM PRN Reason: Protocol Last Admin: 08/04/17 17:56 Dose: 300 mg Insulin Human Lispro (Humalog Med) 0 units SC ACHS [facility] PRN Reason: Protocol Last Admin: 08/05/17 08:09 Dose: Not Given Levetiracetam (Keppra) 500 mg PO Q12 [facility] Last Admin: 08/04/17 22:24 Dose: 500 mg Metoprolol Tartrate (Lopressor) 5 mg IVP ONCE PRN PRN Reason: heart rate > 115 bpm Metoprolol Tartrate (Lopressor) 25 mg PO BID [facility] Last Admin: 08/04/17 17:23 Dose: 25 mg Morphine Sulfate (Morphine) 4 mg IVP Q4H PRN PRN Reason: Pain, severe (8-10) Last Admin: 08/04/17 22:24 Dose: 4 mg Pantoprazole Sodium (Protonix Ec Tab) 40 mg PO 0600 [facility] Last Admin: 08/05/17 06:07 Dose: Not Given Potassium Chloride (K-Dur 20 Meq Er Tab) 40 meq PO ONCE ONE Stop: 08/05/17 10:01 Thiamine HCl (Vitamin B1 Tab) 100 mg PO DAILY [facility] - Labs Labs: 08/05/17 05:30 08/05/17 05:30 PT 14.1 SECONDS (9.4-12.5) H 08/05/17 05:30 INR 1.22 (0.93-1.08) H 08/05/17 05:30 APTT 34.8 Seconds (25.1-36.5) 08/04/17 10:10 <Germain Tim - Last Filed: 08/05/17 14:48> Objective - Vital Signs/Intake and Output Vital Signs (last 24 hours): Temp Pulse Resp BP Pulse Ox 98.1 F 65 20 141/94 H 96 08/05/17 08:14 08/05/17 08:14 08/05/17 08:14 08/05/17 08:14 08/05/17 08:14 Intake and Output: 08/05/17 08/05/17 06:59 18:59 Intake Total 480 480 Output Total 400 325 Balance 80 155 - Medications Medications: Current Medications Alprazolam (Xanax) 0.5 mg PO DAILY [facility] PRN Reason: Protocol Last Admin: 08/05/17 09:28 Dose: 0.5 mg Atorvastatin Calcium (Lipitor) 40 mg PO DIN [facility] Last Admin: 08/04/17 17:56 Dose: 40 mg Gabapentin (Neurontin) 300 mg PO TID [facility] PRN Reason: Protocol Last Admin: 08/05/17 13:34 Dose: 300 mg Insulin Human Lispro (Humalog Med) 0 units SC ACHS [facility] PRN Reason: Protocol Last Admin: 08/05/17 12:00 Dose: Not Given Levetiracetam (Keppra) 500 mg PO Q12 [facility] Last Admin: 08/05/17 09:25 Dose: 500 mg Metoprolol Tartrate (Lopressor) 5 mg IVP ONCE PRN PRN Reason: heart rate > 115 bpm Metoprolol Tartrate (Lopressor) 25 mg PO BID [facility] Last Admin: 08/05/17 09:28 Dose: 25 mg Morphine Sulfate (Morphine) 4 mg IVP Q4H PRN PRN Reason: Pain, severe (8-10) Last Admin: 08/04/17 22:24 Dose: 4 mg Pantoprazole Sodium (Protonix Ec Tab) 40 mg PO 0600 [facility] Last Admin: 08/05/17 06:07 Dose: Not Given Thiamine HCl (Vitamin B1 Tab) 100 mg PO DAILY [facility] Last Admin: 08/05/17 09:28 Dose: 100 mg - Labs Labs: 08/05/17 05:30 08/05/17 05:30 PT 14.1 SECONDS (9.4-12.5) H 08/05/17 05:30 INR 1.22 (0.93-1.08) H 08/05/17 05:30 APTT 34.8 Seconds (25.1-36.5) 08/04/17 10:10 Attending/Attestation - Attestation I have personally seen and examined this patient.: Yes I have fully participated in the care of the patient.: Yes I have reviewed all pertinent clinical information, including history, physical exam and plan: Yes Notes (Text): 08/05/17 14:46 attending note; Patient seen and examined with resident. Patient is a 67 year old male with PMhx of Afib, Hep C, diabetes, seizure, Diabetes who presents to the ED for evaluation and treatment of twin-umbilical abdominal pain. CT abdomen and pelvic showed necrotic pancreatic mass and liver metastases and ascites. Abdominal pain; started on IV morphine. GI evaluation appreciated. Case discussed with IR for possible biopsy today. A. fib; rate controlled. Continue metoprolol. Xarelto on hold. diabetes; continue regular insulin sliding scale. Case discussed with [facility] investigator at [facility]. We will get old records. upon discharge the patient will follow-up with [facility] clinic at [place].
[2017-08-05] MEDS ORDERED: Potassium Chloride 20 mEq ER Tab PO ONE (10:00)
--- NOTE | 2017-08-05 10:28 | CP.PCM.CON ---
<Jennifer Simon - Last Filed: 08/05/17 12:22> History of Present Illness - History of Present Illness History of Present Illness: PGY4 GI Initial Consult Hector Camacho is a 67 year old male with PMhx of Afib, Hep C, seizure, DVT, Diabetes who presents to the ED for evaluation and treatment of twin-umbilical abdominal pain. He states that his pain began several months ago without a specific provoking event. He described it has as intermittent and chronic. He also had intermittent nausea and vomiting. His last episode occurred 1 week ago which was nonobvious and nobody in nature. Denies exacerbating and remitting factors. He states that he has lost 70lbs in the last 6-7 months. he denies any previous episode of jaundice or scleral icterus. He does have a hx of smoking, but denies any previous colonoscopy or endoscopy. A CT and revealed a necrotic pancreatic head mass with liver mets and nodes in [place]. Pt admits have chronic constipation. He has a BM every 2-3 days. denies ant BRBPR, melena, hematemsis or coffee-ground emesis PMH: CAD s/p CABG, visual problems, atrial fibrillation ( on xarelto), h/o DVTs , IDDM2, peripheral neuropathy PSH: CABG in 2010 FMH: Reviewed; Denies any hx of GI related malignancy; + CAD and htn in the family. SH: former smoker tobacco, quit over 2 decades ago, denies etoh, occasional marijuana use, Lives alone, walks with a cane, [facility] Endo hx: Denies any previous EGD and colonoscopy ROS: 12 point ROS conducted, neg other than above Past Patient History - Infectious Disease Hx of Infectious Diseases: None - Tetanus Immunizations Tetanus Immunization: Unknown - Past Medical History & Family History Past Medical History?: Yes - Past Social History Smoking Status: Current Some Days Smoker - CARDIAC Hx Cardiac Disorders: Yes (rhinoplasty) Hx Angina: No Hx Cardia Arrhythmia: Yes (afib) Hx Circulatory Problems: Yes (DVT right leg) Hx Congestive Heart Failure: Yes Hx Heart Murmur: No Hx Heart Transplant: No Hx Hypercholesterolemia: Yes Hx Hypertension: Yes Hx Internal Defibrillator: No Hx Mitral Valve Prolapse: No Hx Pacemaker: No Hx Peripheral Edema: No Hx Peripheral Vascular Disease: Yes Other/Comment: triple bypass 2 yrs ago, vein stripping right leg 40 yrs ago - PULMONARY Hx Respiratory Disorders: Yes (Pneumonitis) Hx Asthma: No Hx Bronchitis: No Hx Chronic Obstructive Pulmonary Disease (COPD): No Hx Emphysema: No Hx Pneumonia: No Hx Respiratory Aspiration: No Hx Respiratory Tract Infection: No Hx Sleep Apnea: No Hx Tuberculosis: No - NEUROLOGICAL Hx Neurological Disorder: Yes Hx Alzheimer's Disease: No HX Cerebrovascular Accident: No Hx Dementia: No Hx Dizziness: No Hx Meningitis: No Hx Migraine: No Hx Parkinson's Disease: No Hx Seizures: Yes (2017) Hx Transient Ischemic Attacks (TIA): No - HEENT Hx HEENT Problems: Yes Hx Blind: Yes (left eye legally blind) Hx Cataracts: No Hx Deafness: No Hx Difficulty Chewing: Yes (needs dentures. no upper teeth) Hx Epistaxis: No Hx Glaucoma: No Hx Macular Degeneration: No - RENAL Hx Chronic Kidney Disease: No Hx Dialysis: No Hx Kidney Stones: No Hx Neurogenic Bladder: No Hx Pyelonephritis: No Hx Renal (Kidney) Cancer: No Hx Renal Failure: No - ENDOCRINE/METABOLIC Hx Endocrine Disorders: Yes Hx Adrenal Cancer: No Hx Diabetes Insipidus: No Hx Diabetes Mellitus Type 1: No Hx Diabetes Mellitus Type 2: Yes Hx Hyperthyroidism: No Hx Hypothyroidism: No Hx Systemic Lupus Erythematosus: No - HEMATOLOGICAL/ONCOLOGICAL Hx Blood Disorders: Yes Hx AIDS: No Hx Anemia: No Hx Cancer: No Hx Chemotherapy: No Hx Cirrhosis: No Hx Hemophilia: No Hx Hepatitis A: No Hx Hepatitis B: No Hx Hepatitis C: Yes Hx Human Immunodeficiency Virus (HIV): No Hx Metastesis: No Hx Shingles: No Hx Sickle Cell Disease: No Hx Unexplained Bleeding: No - INTEGUMENTARY Hx Dermatological Problems: No Hx Basil Cell: No Hx Eczema: No Hx Melanoma: No Hx Psoriasis: No Hx Squamous Cell: No - MUSCULOSKELETAL/RHEUMATOLOGICAL Hx Falls: Yes - GASTROINTESTINAL Hx Gastrointestinal Disorders: Yes (hiatal hernia) Hx Colostomy: No Hx Crohn's Disease: No Hx Diverticulitis: No Hx Gall Bladder Disease: No Hx Gastroesophageal Reflux: Yes Hx Ileostomy: No Hx Liver Failure: No Hx Pancreatitis: No HX Swallowing Problems: No Hx Ulcer: No - GENITOURINARY/GYNECOLOGICAL Hx Genitourinary Disorders: No Hx Hematuria: No Hx Incontinence: No Hx Prostate Problems: No Hx Sexually Transmitted Disorders: No Hx Urinary Tract Infection: No - PSYCHIATRIC Hx Substance Use: Yes (marijuana) - SURGICAL HISTORY Hx Surgeries: Yes (kayode stripping right leg) Hx Amputation: No Hx Appendectomy: No Hx Cardiac Catheterization: Yes Hx Cholecystectomy: No Hx Coronary Stent: Yes Hx Gastric Bypass Surgery: No Hx Hysterectomy: No Hx Joint Replacement: No Hx Kidney Transplant: No Hx Liver Transplant: No Hx Mastectomy: No Hx Musculoskeletal Surgery: (rhinoplasty) Hx Open Heart Surgery: Yes (CABG) Hx Orthopedic Surgery: No Hx Splenectomy: No Hx Valve Replacement: No - ANESTHESIA Hx Anesthesia: Yes Hx Anesthesia Reactions: No Hx Malignant Hyperthermia: No Meds Allergies/Adverse Reactions: Allergies Allergy/AdvReac Type Severity Reaction Status Date / Time acetaminophen [From Percocet] Allergy .hallucinat Verified 03/22/17 15:18 ions oxycodone [From Percocet] Allergy RASH Verified 03/22/17 15:18 warfarin [From Coumadin] Allergy RASH Verified 03/22/17 15:18 - Medications Medications: Current Medications Alprazolam (Xanax) 0.5 mg PO DAILY [facility] PRN Reason: Protocol Last Admin: 08/05/17 09:28 Dose: 0.5 mg Atorvastatin Calcium (Lipitor) 40 mg PO DIN [facility] Last Admin: 08/04/17 17:56 Dose: 40 mg Gabapentin (Neurontin) 300 mg PO TID [facility] PRN Reason: Protocol Last Admin: 08/05/17 09:28 Dose: 300 mg Insulin Human Lispro (Humalog Med) 0 units SC ACHS [facility] PRN Reason: Protocol Last Admin: 08/05/17 08:09 Dose: Not Given Levetiracetam (Keppra) 500 mg PO Q12 [facility] Last Admin: 08/05/17 09:25 Dose: 500 mg Metoprolol Tartrate (Lopressor) 5 mg IVP ONCE PRN PRN Reason: heart rate > 115 bpm Metoprolol Tartrate (Lopressor) 25 mg PO BID [facility] Last Admin: 08/05/17 09:28 Dose: 25 mg Morphine Sulfate (Morphine) 4 mg IVP Q4H PRN PRN Reason: Pain, severe (8-10) Last Admin: 08/04/17 22:24 Dose: 4 mg Pantoprazole Sodium (Protonix Ec Tab) 40 mg PO 0600 [facility] Last Admin: 08/05/17 06:07 Dose: Not Given Thiamine HCl (Vitamin B1 Tab) 100 mg PO DAILY [facility] Last Admin: 08/05/17 09:28 Dose: 100 mg Physical Exam - Constitutional Appears: Well, No Acute Distress - Head Exam Head Exam: ATRAUMATIC, NORMOCEPHALIC - Eye Exam Eye Exam: EOMI, Normal appearance, PERRL. absent: Nystagmus, Scleral icterus - ENT Exam ENT Exam: Mucous Membranes Moist, Normal Exam - Neck Exam Neck exam: Positive for: Normal Inspection - Respiratory Exam Respiratory Exam: Clear to Auscultation Bilateral, NORMAL BREATHING PATTERN. absent: Prolonged Expiratory Phase, Rales, Rhonchi, Wheezes, Respiratory Distress - Cardiovascular Exam Cardiovascular Exam: REGULAR RHYTHM, +S1, +S2 - GI/Abdominal Exam GI & Abdominal Exam: Normal Bowel Sounds, Soft. absent: Diminished Bowel Sounds , Distended, Firm, Guarding, Organomegaly, Pulsatile Mass, Rebound, Rigid - Extremities Exam Extremities exam: Negative for: joint swelling, pedal edema - Neurological Exam Neurological exam: Alert, Oriented x3 - Psychiatric Exam Psychiatric exam: Normal Affect, Normal Mood - Skin Skin Exam: Normal Color, Warm Results - Vital Signs Recent Vital Signs: Last Vital Signs Temp 98.1 F 08/05/17 08:14 Pulse 65 08/05/17 08:14 Resp 20 08/05/17 08:14 BP 141/94 H 08/05/17 08:14 Pulse Ox 96 08/05/17 08:14 - Labs Result Diagrams: 08/05/17 05:30 08/05/17 05:30 Labs: Laboratory Results - last 24 hr 08/04/17 08/04/17 08/04/17 16:31 16:31 21:16 WBC RBC Hgb Hct MCV MCH MCHC RDW Plt Count MPV Gran % Lymph % (Auto) Toole % (Auto) Eos % (Auto) Baso % (Auto) Gran # Lymph # (Auto) Toole # (Auto) Eos # (Auto) Baso # (Auto) PT INR Sodium Potassium Chloride Carbon Dioxide Anion Gap BUN Creatinine Est GFR ( Amer) Est GFR (Non-Af Amer) POC Glucose (mg/dL) 179 H Random Glucose Hemoglobin A1c 8.5 H D Calcium Magnesium Total Bilirubin AST ALT Alkaline Phosphatase Total Protein Albumin Globulin Albumin/Globulin Ratio Hepatitis A IgM Ab Negative Hep Bs Antigen Negative Hep B Core IgM Ab Negative Hepatitis C Antibody Reactive 08/05/17 08/05/17 08/05/17 05:30 05:30 05:30 WBC 6.9 RBC 3.91 Hgb 10.6 L Hct 34.0 L MCV 87.0 MCH 27.1 MCHC 31.2 RDW 14.3 Plt Count 220 MPV 10.1 Gran % 80.4 H Lymph % (Auto) 9.2 L Toole % (Auto) 9.1 H Eos % (Auto) 1.0 L Baso % (Auto) 0.3 Gran # 5.51 Lymph # (Auto) 0.6 L Toole # (Auto) 0.6 Eos # (Auto) 0.1 Baso # (Auto) 0.02 PT 14.1 H INR 1.22 H Sodium 137 Potassium 3.5 L Chloride 102 Carbon Dioxide 27 Anion Gap 12 BUN 15 Creatinine 0.9 Est GFR ( Amer) > 60 Est GFR (Non-Af Amer) > 60 POC Glucose (mg/dL) Random Glucose 182 H Hemoglobin A1c Calcium 8.5 Magnesium Total Bilirubin 0.5 AST 17 ALT 20 Alkaline Phosphatase 123 Total Protein 5.5 L Albumin 2.8 L Globulin 2.7 Albumin/Globulin Ratio 1.0 L Hepatitis A IgM Ab Hep Bs Antigen Hep B Core IgM Ab Hepatitis C Antibody 08/05/17 08/05/17 05:30 07:07 WBC RBC Hgb Hct MCV MCH MCHC RDW Plt Count MPV Gran % Lymph % (Auto) Toole % (Auto) Eos % (Auto) Baso % (Auto) Gran # Lymph # (Auto) Toole # (Auto) Eos # (Auto) Baso # (Auto) PT INR Sodium Potassium Chloride Carbon Dioxide Anion Gap BUN Creatinine Est GFR ( Amer) Est GFR (Non-Af Amer) POC Glucose (mg/dL) 177 H Random Glucose Hemoglobin A1c Calcium Magnesium 1.9 Total Bilirubin AST ALT Alkaline Phosphatase Total Protein Albumin Globulin Albumin/Globulin Ratio Hepatitis A IgM Ab Hep Bs Antigen Hep B Core IgM Ab Hepatitis C Antibody Assessment & Plan - Assessment and Plan (Free Text) Assessment: Hector Camacho is a 67 year old male with PMHx of Afib, Hep C, seizure, DVT, Diabetes who was admitted for evaluation and treatment for ED for evaluation and treatment of twin-umbilical abdominal pain. Pt found to have a necrotic pancreatic head mall will liver lesions Pancreatic mass, likely malignant Liver lesions, Likely mets Lymphenopathy Weightloss Plan: -agree with Ir guided biospy of liver mets -with invasion into hepatic artery, likely T4 -hem/onc consulted -prognosis and further tx based on biospy results -no GI intervention planned at this time -if pt is proceeding with possible treatment in the future will eventually need outp colonoscopy and EGD -diet as tolerated D/W Dr. Beck <Jose Luis Beck - Last Filed: 08/05/17 12:30> Meds - Medications Medications: Current Medications Alprazolam (Xanax) 0.5 mg PO DAILY [facility] PRN Reason: Protocol Last Admin: 08/05/17 09:28 Dose: 0.5 mg Atorvastatin Calcium (Lipitor) 40 mg PO DIN [facility] Last Admin: 08/04/17 17:56 Dose: 40 mg Gabapentin (Neurontin) 300 mg PO TID [facility] PRN Reason: Protocol Last Admin: 08/05/17 09:28 Dose: 300 mg Insulin Human Lispro (Humalog Med) 0 units SC ACHS [facility] PRN Reason: Protocol Last Admin: 08/05/17 08:09 Dose: Not Given Levetiracetam (Keppra) 500 mg PO Q12 [facility] Last Admin: 08/05/17 09:25 Dose: 500 mg Metoprolol Tartrate (Lopressor) 5 mg IVP ONCE PRN PRN Reason: heart rate > 115 bpm Metoprolol Tartrate (Lopressor) 25 mg PO BID [facility] Last Admin: 08/05/17 09:28 Dose: 25 mg Morphine Sulfate (Morphine) 4 mg IVP Q4H PRN PRN Reason: Pain, severe (8-10) Last Admin: 08/04/17 22:24 Dose: 4 mg Pantoprazole Sodium (Protonix Ec Tab) 40 mg PO 0600 [facility] Last Admin: 08/05/17 06:07 Dose: Not Given Thiamine HCl (Vitamin B1 Tab) 100 mg PO DAILY [facility] Last Admin: 08/05/17 09:28 Dose: 100 mg Results - Vital Signs Recent Vital Signs: Last Vital Signs Temp 98.1 F 08/05/17 08:14 Pulse 65 08/05/17 08:14 Resp 20 08/05/17 08:14 BP 141/94 H 08/05/17 08:14 Pulse Ox 96 08/05/17 08:14 - Labs Result Diagrams: 08/05/17 05:30 08/05/17 05:30 Labs: Laboratory Results - last 24 hr 08/04/17 08/04/17 08/04/17 16:31 16:31 21:16 WBC RBC Hgb Hct MCV MCH MCHC RDW Plt Count MPV Gran % Lymph % (Auto) Toole % (Auto) Eos % (Auto) Baso % (Auto) Gran # Lymph # (Auto) Toole # (Auto) Eos # (Auto) Baso # (Auto) PT INR Sodium Potassium Chloride Carbon Dioxide Anion Gap BUN Creatinine Est GFR ( Amer) Est GFR (Non-Af Amer) POC Glucose (mg/dL) 179 H Random Glucose Hemoglobin A1c 8.5 H D Calcium Magnesium Total Bilirubin AST ALT Alkaline Phosphatase Total Protein Albumin Globulin Albumin/Globulin Ratio Hepatitis A IgM Ab Negative Hep Bs Antigen Negative Hep B Core IgM Ab Negative Hepatitis C Antibody Reactive 08/05/17 08/05/17 08/05/17 05:30 05:30 05:30 WBC 6.9 RBC 3.91 Hgb 10.6 L Hct 34.0 L MCV 87.0 MCH 27.1 MCHC 31.2 RDW 14.3 Plt Count 220 MPV 10.1 Gran % 80.4 H Lymph % (Auto) 9.2 L Toole % (Auto) 9.1 H Eos % (Auto) 1.0 L Baso % (Auto) 0.3 Gran # 5.51 Lymph # (Auto) 0.6 L Toole # (Auto) 0.6 Eos # (Auto) 0.1 Baso # (Auto) 0.02 PT 14.1 H INR 1.22 H Sodium 137 Potassium 3.5 L Chloride 102 Carbon Dioxide 27 Anion Gap 12 BUN 15 Creatinine 0.9 Est GFR ( Amer) > 60 Est GFR (Non-Af Amer) > 60 POC Glucose (mg/dL) Random Glucose 182 H Hemoglobin A1c Calcium 8.5 Magnesium Total Bilirubin 0.5 AST 17 ALT 20 Alkaline Phosphatase 123 Total Protein 5.5 L Albumin 2.8 L Globulin 2.7 Albumin/Globulin Ratio 1.0 L Hepatitis A IgM Ab Hep Bs Antigen Hep B Core IgM Ab Hepatitis C Antibody 08/05/17 08/05/17 08/05/17 05:30 07:07 11:10 WBC RBC Hgb Hct MCV MCH MCHC RDW Plt Count MPV Gran % Lymph % (Auto) Toole % (Auto) Eos % (Auto) Baso % (Auto) Gran # Lymph # (Auto) Toole # (Auto) Eos # (Auto) Baso # (Auto) PT INR Sodium Potassium Chloride Carbon Dioxide Anion Gap BUN Creatinine Est GFR ( Amer) Est GFR (Non-Af Amer) POC Glucose (mg/dL) 177 H 171 H Random Glucose Hemoglobin A1c Calcium Magnesium 1.9 Total Bilirubin AST ALT Alkaline Phosphatase Total Protein Albumin Globulin Albumin/Globulin Ratio Hepatitis A IgM Ab Hep Bs Antigen Hep B Core IgM Ab Hepatitis C Antibody Attending/Attestation - Attestation I have personally seen and examined this patient.: Yes I have fully participated in the care of the patient.: Yes I have reviewed all pertinent clinical information: Yes Notes (Text): 08/05/17 12:28 67 year old male with h/o Afib on xarelto, Hep C, presents with abdominal pain, found to have pancreatic head mass invading the hepatic artery, liver mass, pulmonary nodules, and ascites. Clinically, this appears to be advanced pancreatic cancer. Hepatic artery invasion would indicate T4 disease, liver and pulmonary lesions would be suggestive of metastases as well. Would recommend IR guided biospy of liver lesion. Would recommend paracentesis. Recommend oncology consult. Supportive care.
[2017-08-05] MEDS: Morphine 4 mg/ml ISec IVP PRN (18:47)
[2017-08-06] MEDS: Morphine 4 mg/ml ISec IVP PRN ×3 (00:52→16:40)
[2017-08-06] MEDS: Pantoprazole 40 mg EC Tab PO SCH (06:04)
[2017-08-06 07:03] LABS: BASO # 0.01 K/mm3 (0.0-2.0); BASO % 0.1 % (0.0-3.0); EOS # 0.1 (0.0-0.7); EOS % 0.7 % (1.5-5.0); GRAN # 6.97 (1.4-6.5); GRAN % 82.4 % (50.0-68.0); LYMPH # 0.9 (1.2-3.4); MEAN CELL VOLUME 86.3 fl (80.0-105.0); MEAN CORPUSCULAR HEMOGLOBIN 26.9 pg (25.0-35.0); MEAN CORPUSCULAR HGB CONC 31.2 g/dl (31.0-37.0); MEAN PLATELET VOLUME 9.8 fl (7.0-11.0); MONO # 0.6 (0.1-0.6); MONO % 6.8 % (1.0-6.0); RBC 4.09 10^6/uL (3.5-6.1); RED CELL DISTRIBUTION WIDTH 14.1 % (11.5-14.5); WHITE BLOOD COUNT 8.5 10^3/ul (4.5-11.0)
[2017-08-06 07:20] LABS: ALB/GLOB RATIO 1.1 (1.1-1.8); ALBUMIN 2.9 g/dL (3.0-4.8); ALT/SGPT 22 U/L (7-56); AST/SGOT 15 U/L (17-59); BLOOD UREA NITROGEN 18 mg/dL (7-21); CALCIUM 8.6 mg/dL (8.4-10.5); GFR AFRICAN-AMERICAN > 60; GFR NON-AFRICAN AMERICAN > 60
--- NOTE | 2017-08-06 09:05 | CP.PCM.PN ---
<Phong Simon - Last Filed: 08/06/17 12:05> Subjective - Date & Time of Evaluation Date of Evaluation: 08/06/17 Time of Evaluation: 08:00 - Subjective Subjective: Subjective: Patient seen and examined. No acute events no overnight. Admits to constipation and nausea without emesis. Denies fever, chills, chest pain, shortness of breath, abdominal pain, vomiting, diarrhea, constipation, and urinary symptoms. Physical Examination: - Constitutional Appears: NAD - Head Exam Head Exam: ATRAUMATIC, NORMAL INSPECTION, NORMOCEPHALIC - Eye Exam Eye Exam: EOMI, Normal appearance, PERRL - ENT Exam ENT Exam: Mucous Membranes Moist, Normal Exam - Neck Exam Neck exam: Positive for: Normal Inspection - Respiratory Exam Respiratory Exam: NORMAL BREATHING PATTERN, CTA bilaterally - Cardiovascular Exam Cardiovascular Exam: REGULAR RHYTHM - GI/Abdominal Exam GI & Abdominal Exam: Normal Bowel Sounds, Soft, Mildy tender to touch, fluid wave noted - Extremities Exam Extremities exam: Positive for: normal inspection - Back Exam Back exam: NORMAL INSPECTION - Neurological Exam Neurological exam: Alert, CN II-XII Intact, Normal Gait, Oriented x3, Reflexes Normal - Psychiatric Exam Psychiatric exam: Normal Affect, Normal Moo Assessment and Plan: Patient is a 67 year old male with PMHx of Afib, Hep C, seizure, DVT, Diabetes who was admitted for evaluation and treatment for ED for evaluation and treatment of twin-umbilical abdominal pain. Abdominal Pain - CT of abdomen/pelvis: 1. Necrotic mass in the head of the pancreas with a diffuse and infiltrative component to adjacent lymph node chains extending to the katelyn hepatis. 2. Hepatic metastatic disease. 3. Intra-abdominal and pelvic ascites presumed to be malignant. - Hematology/oncology consulted- appreciate recommendations - GI consulted- appreciate recommendations- agree with Ir guided biospy of liver mets, if pt is proceeding with possible treatment in the future will eventually need outp colonoscopy and EGD - IR consulted for biopsy- appreciate recommendations-- scheduled for biopsy on 08/06/17 Constipation - miralax and docusate Nausea - zofran 4mg IV q6 prn, QTc 449 Hx of Seizure disorders - will continue with keppra 500 mg bid - will obtain keppra level- pending - Seizure and fall precaution Hx of CAD s/p CABG - continue with Lopressor - continue with Lipitor Hx of Atrial fibrillation - EKG- atrial fibrillation with RVR- rate control with lopessor - continue Lopressor - hold xarelto and aspirin due to procedure today - PT-INR trend Hx of IDDM2 - ACHS - hold home insulin - moderate carb controlled diet - will hold metformin Hx of Peripheral neuropathy -continue with gabapentin Hx of Anxiety - continue xanax 0.5 mg bid prn Gait instability - PT eval- appreciate input Prophylaxis - DVT prophylaxis- hold xarelto, SCDs in patient - GI prophylaxis - on protonix Patient case discussed with, and plan approved by attending physician, Dr. Tim. Objective - Vital Signs/Intake and Output Vital Signs (last 24 hours): Temp Pulse Resp BP Pulse Ox 98 F 55 L 19 126/67 94 L 08/06/17 07:57 08/06/17 07:57 08/06/17 07:57 08/06/17 07:57 08/06/17 07:57 Intake and Output: 08/06/17 08/06/17 06:59 18:59 Intake Total 780 Output Total 450 Balance 330 - Medications Medications: Current Medications Alprazolam (Xanax) 0.5 mg PO DAILY [facility] PRN Reason: Protocol Last Admin: 08/05/17 09:28 Dose: 0.5 mg Atorvastatin Calcium (Lipitor) 40 mg PO DIN [facility] Last Admin: 08/05/17 18:44 Dose: 40 mg Gabapentin (Neurontin) 300 mg PO TID [facility] PRN Reason: Protocol Last Admin: 08/05/17 18:44 Dose: 300 mg Insulin Human Lispro (Humalog Med) 0 units SC ACHS [facility] PRN Reason: Protocol Last Admin: 08/05/17 21:38 Dose: Not Given Levetiracetam (Keppra) 500 mg PO Q12 [facility] Last Admin: 08/05/17 21:38 Dose: 500 mg Metoprolol Tartrate (Lopressor) 5 mg IVP ONCE PRN PRN Reason: heart rate > 115 bpm Metoprolol Tartrate (Lopressor) 25 mg PO BID [facility] Last Admin: 08/05/17 18:44 Dose: 25 mg Morphine Sulfate (Morphine) 4 mg IVP Q4H PRN PRN Reason: Pain, severe (8-10) Last Admin: 08/06/17 00:52 Dose: 4 mg Pantoprazole Sodium (Protonix Ec Tab) 40 mg PO 0600 [facility] Last Admin: 08/06/17 06:04 Dose: 40 mg Thiamine HCl (Vitamin B1 Tab) 100 mg PO DAILY [facility] Last Admin: 08/05/17 09:28 Dose: 100 mg - Labs Labs: 08/06/17 06:40 08/06/17 06:40 PT 14.1 SECONDS (9.4-12.5) H 08/05/17 05:30 INR 1.22 (0.93-1.08) H 08/05/17 05:30 APTT 34.8 Seconds (25.1-36.5) 08/04/17 10:10 <Germain Tim - Last Filed: 08/06/17 16:04> Objective - Vital Signs/Intake and Output Vital Signs (last 24 hours): Temp Pulse Resp BP Pulse Ox 98 F 55 L 19 126/67 94 L 08/06/17 07:57 08/06/17 09:09 08/06/17 07:57 08/06/17 07:57 08/06/17 07:57 Intake and Output: 08/06/17 08/06/17 06:59 18:59 Intake Total 240 Output Total 150 Balance 90 - Medications Medications: Current Medications Alprazolam (Xanax) 0.5 mg PO DAILY [facility] PRN Reason: Protocol Last Admin: 08/06/17 09:10 Dose: 0.5 mg Atorvastatin Calcium (Lipitor) 40 mg PO DIN [facility] Last Admin: 08/05/17 18:44 Dose: 40 mg Docusate Sodium (Colace Liquid) 100 mg PO TID PRN PRN Reason: Constipation Gabapentin (Neurontin) 300 mg PO TID [facility] PRN Reason: Protocol Last Admin: 08/06/17 14:40 Dose: 300 mg Insulin Human Lispro (Humalog High) 0 units SC ACHS [facility] PRN Reason: Protocol Levetiracetam (Keppra) 500 mg PO Q12 [facility] Last Admin: 08/06/17 09:09 Dose: 500 mg Metoprolol Tartrate (Lopressor) 5 mg IVP ONCE PRN PRN Reason: heart rate > 115 bpm Metoprolol Tartrate (Lopressor) 25 mg PO BID [facility] Last Admin: 08/06/17 09:09 Dose: Not Given Morphine Sulfate (Morphine) 4 mg IVP Q4H PRN PRN Reason: Pain, severe (8-10) Last Admin: 08/06/17 09:38 Dose: 4 mg Ondansetron HCl (Zofran Inj) 4 mg IVP Q6H PRN PRN Reason: Nausea/Vomiting Pantoprazole Sodium (Protonix Ec Tab) 40 mg PO 0600 [facility] Last Admin: 08/06/17 06:04 Dose: 40 mg Polyethylene Glycol (Miralax) 17 gm PO BID PRN PRN Reason: Constipation Thiamine HCl (Vitamin B1 Tab) 100 mg PO DAILY [facility] Last Admin: 08/06/17 09:10 Dose: 100 mg - Labs Labs: PT 14.1 SECONDS (9.4-12.5) H 08/05/17 05:30 INR 1.22 (0.93-1.08) H 08/05/17 05:30 APTT 34.8 Seconds (25.1-36.5) 08/04/17 10:10 Attending/Attestation - Attestation I have personally seen and examined this patient.: Yes I have fully participated in the care of the patient.: Yes I have reviewed all pertinent clinical information, including history, physical exam and plan: Yes Notes (Text): 08/06/17 16:02 attending note; Patient seen and examined with resident. Patient is a 67 year old male with PMhx of Afib, Hep C, diabetes, seizure, Diabetes who presents to the ED for evaluation and treatment of twin-umbilical abdominal pain. CT abdomen and pelvic showed necrotic pancreatic mass and liver metastases and ascites. Abdominal pain; started on IV morphine. GI evaluation appreciated. Case discussed with IR for possible biopsy today. GI and oncology evaluation appreciated. A. fib; rate controlled. Continue metoprolol. Xarelto on hold. restart in am. diabetes; continue regular insulin sliding scale. PT evaluation requested. Case discussed with transplant case manager for discharge planning. Possible discharge tomorrow if clinically stable. upon discharge the patient will follow-up with [facility] at [place].
[2017-08-06] MEDS: Insulin Lispro (humaLOG) MEDIUM Coverage SC SCH ×2 (09:07→13:12)
--- NOTE | 2017-08-06 11:13 | CP.PCM.CON ---
History of Present Illness - History of Present Illness History of Present Illness: patient seen ...will dictate note Past Patient History - Infectious Disease Hx of Infectious Diseases: None - Tetanus Immunizations Tetanus Immunization: Unknown - Past Medical History & Family History Past Medical History?: Yes - Past Social History Smoking Status: Current Some Days Smoker - CARDIAC Hx Cardiac Disorders: Yes (rhinoplasty) Hx Congestive Heart Failure: Yes Hx Hypercholesterolemia: Yes Hx Hypertension: Yes - PULMONARY Hx Chronic Obstructive Pulmonary Disease (COPD): No - NEUROLOGICAL HX Cerebrovascular Accident: No - HEENT Hx HEENT Problems: Yes Hx Blind: Yes (left eye legally blind) Hx Cataracts: No Hx Deafness: No Hx Difficulty Chewing: Yes (needs dentures. no upper teeth) Hx Epistaxis: No Hx Glaucoma: No Hx Macular Degeneration: No - RENAL Hx Renal Failure: No - ENDOCRINE/METABOLIC Hx Diabetes Mellitus Type 1: No Hx Diabetes Mellitus Type 2: Yes Hx Hypothyroidism: No - HEMATOLOGICAL/ONCOLOGICAL Hx Blood Disorders: Yes Hx AIDS: No Hx Anemia: No Hx Cancer: No Hx Chemotherapy: No Hx Cirrhosis: No Hx Hemophilia: No Hx Hepatitis A: No Hx Hepatitis B: No Hx Hepatitis C: Yes Hx Human Immunodeficiency Virus (HIV): No Hx Metastesis: No Hx Shingles: No Hx Sickle Cell Disease: No Hx Unexplained Bleeding: No - INTEGUMENTARY Hx Dermatological Problems: No Hx Basil Cell: No Hx Eczema: No Hx Melanoma: No Hx Psoriasis: No Hx Squamous Cell: No - MUSCULOSKELETAL/RHEUMATOLOGICAL Hx Falls: Yes - GASTROINTESTINAL Hx Gastrointestinal Disorders: Yes (hiatal hernia) Hx Colostomy: No Hx Crohn's Disease: No Hx Diverticulitis: No Hx Gall Bladder Disease: No Hx Gastroesophageal Reflux: Yes Hx Ileostomy: No Hx Liver Failure: No Hx Pancreatitis: No HX Swallowing Problems: No Hx Ulcer: No - GENITOURINARY/GYNECOLOGICAL Hx Genitourinary Disorders: No Hx Hematuria: No Hx Incontinence: No Hx Prostate Problems: No Hx Sexually Transmitted Disorders: No Hx Urinary Tract Infection: No - PSYCHIATRIC Hx Substance Use: Yes (marijuana) - SURGICAL HISTORY Hx Surgeries: Yes (kayode stripping right leg) Hx Amputation: No Hx Appendectomy: No Hx Cardiac Catheterization: Yes Hx Cholecystectomy: No Hx Coronary Stent: Yes Hx Gastric Bypass Surgery: No Hx Hysterectomy: No Hx Joint Replacement: No Hx Kidney Transplant: No Hx Liver Transplant: No Hx Mastectomy: No Hx Musculoskeletal Surgery: (rhinoplasty) Hx Open Heart Surgery: Yes (CABG) Hx Orthopedic Surgery: No Hx Splenectomy: No Hx Valve Replacement: No - ANESTHESIA Hx Anesthesia: Yes Hx Anesthesia Reactions: No Hx Malignant Hyperthermia: No Meds Allergies/Adverse Reactions: Allergies Allergy/AdvReac Type Severity Reaction Status Date / Time acetaminophen [From Percocet] Allergy .hallucinat Verified 03/22/17 15:18 ions oxycodone [From Percocet] Allergy RASH Verified 03/22/17 15:18 warfarin [From Coumadin] Allergy RASH Verified 03/22/17 15:18 - Medications Medications: Current Medications Alprazolam (Xanax) 0.5 mg PO DAILY [facility] PRN Reason: Protocol Last Admin: 08/06/17 09:10 Dose: 0.5 mg Atorvastatin Calcium (Lipitor) 40 mg PO DIN [facility] Last Admin: 08/05/17 18:44 Dose: 40 mg Docusate Sodium (Colace Liquid) 100 mg PO TID PRN PRN Reason: Constipation Gabapentin (Neurontin) 300 mg PO TID [facility] PRN Reason: Protocol Last Admin: 08/06/17 09:09 Dose: 300 mg Insulin Human Lispro (Humalog Med) 0 units SC ACHS [facility] PRN Reason: Protocol Last Admin: 08/06/17 09:07 Dose: 3 units Levetiracetam (Keppra) 500 mg PO Q12 [facility] Last Admin: 08/06/17 09:09 Dose: 500 mg Metoprolol Tartrate (Lopressor) 5 mg IVP ONCE PRN PRN Reason: heart rate > 115 bpm Metoprolol Tartrate (Lopressor) 25 mg PO BID [facility] Last Admin: 08/06/17 09:09 Dose: Not Given Morphine Sulfate (Morphine) 4 mg IVP Q4H PRN PRN Reason: Pain, severe (8-10) Last Admin: 08/06/17 09:38 Dose: 4 mg Ondansetron HCl (Zofran Inj) 4 mg IVP Q6H PRN PRN Reason: Nausea/Vomiting Pantoprazole Sodium (Protonix Ec Tab) 40 mg PO 0600 [facility] Last Admin: 08/06/17 06:04 Dose: 40 mg Polyethylene Glycol (Miralax) 17 gm PO BID PRN PRN Reason: Constipation Thiamine HCl (Vitamin B1 Tab) 100 mg PO DAILY [facility] Last Admin: 08/06/17 09:10 Dose: 100 mg Results - Vital Signs Recent Vital Signs: Last Vital Signs Temp 98 F 08/06/17 07:57 Pulse 55 L 08/06/17 09:09 Resp 19 08/06/17 07:57 BP 126/67 08/06/17 07:57 Pulse Ox 94 L 08/06/17 07:57 - Labs Result Diagrams: 08/06/17 06:40 08/06/17 06:40 Labs: Laboratory Results - last 24 hr 08/05/17 08/05/17 08/05/17 11:10 16:13 21:08 WBC RBC Hgb Hct MCV MCH MCHC RDW Plt Count MPV Gran % Lymph % (Auto) [place] % (Auto) Eos % (Auto) Baso % (Auto) Gran # Lymph # (Auto) [place] # (Auto) Eos # (Auto) Baso # (Auto) Sodium Potassium Chloride Carbon Dioxide Anion Gap BUN Creatinine Est GFR ( Amer) Est GFR (Non-Af Amer) POC Glucose (mg/dL) 171 H 214 H 248 H Random Glucose Calcium Total Bilirubin AST ALT Alkaline Phosphatase Total Protein Albumin Globulin Albumin/Globulin Ratio 08/06/17 08/06/17 08/06/17 06:40 06:40 07:06 WBC 8.5 D RBC 4.09 Hgb 11.0 L Hct 35.3 L MCV 86.3 MCH 26.9 MCHC 31.2 RDW 14.1 Plt Count 236 MPV 9.8 Gran % 82.4 H Lymph % (Auto) 10.0 L [place] % (Auto) 6.8 H Eos % (Auto) 0.7 L Baso % (Auto) 0.1 Gran # 6.97 H Lymph # (Auto) 0.9 L [place] # (Auto) 0.6 Eos # (Auto) 0.1 Baso # (Auto) 0.01 Sodium 138 Potassium 4.4 Chloride 102 Carbon Dioxide 27 Anion Gap 13 BUN 18 Creatinine 0.9 Est GFR ( Amer) > 60 Est GFR (Non-Af Amer) > 60 POC Glucose (mg/dL) 205 H Random Glucose 244 H Calcium 8.6 Total Bilirubin 0.5 AST 15 L ALT 22 Alkaline Phosphatase 118 Total Protein 5.6 L Albumin 2.9 L Globulin 2.7 Albumin/Globulin Ratio 1.1
--- NOTE | 2017-08-06 11:17 | CP.PCM.PN ---
<Jennifer Simon - Last Filed: 08/06/17 11:18> Subjective - Date & Time of Evaluation Date of Evaluation: 08/06/17 Time of Evaluation: 07:50 - Subjective Subjective: PGY4 GI Follow-up Pt seen and examined Denies any abd pain Tolerating diet NPO for liver biospy today ROS: 12 point ROS conducted, neg other than above Objective - Vital Signs/Intake and Output Vital Signs (last 24 hours): Temp Pulse Resp BP Pulse Ox 98 F 55 L 19 126/67 94 L 08/06/17 07:57 08/06/17 09:09 08/06/17 07:57 08/06/17 07:57 08/06/17 07:57 Intake and Output: 08/06/17 08/06/17 06:59 18:59 Intake Total 780 Output Total 450 Balance 330 - Medications Medications: Current Medications Alprazolam (Xanax) 0.5 mg PO DAILY [facility] PRN Reason: Protocol Last Admin: 08/06/17 09:10 Dose: 0.5 mg Atorvastatin Calcium (Lipitor) 40 mg PO DIN [facility] Last Admin: 08/05/17 18:44 Dose: 40 mg Gabapentin (Neurontin) 300 mg PO TID [facility] PRN Reason: Protocol Last Admin: 08/06/17 09:09 Dose: 300 mg Insulin Human Lispro (Humalog Med) 0 units SC ACHS [facility] PRN Reason: Protocol Last Admin: 08/06/17 09:07 Dose: 3 units Levetiracetam (Keppra) 500 mg PO Q12 [facility] Last Admin: 08/06/17 09:09 Dose: 500 mg Metoprolol Tartrate (Lopressor) 5 mg IVP ONCE PRN PRN Reason: heart rate > 115 bpm Metoprolol Tartrate (Lopressor) 25 mg PO BID [facility] Last Admin: 08/06/17 09:09 Dose: Not Given Morphine Sulfate (Morphine) 4 mg IVP Q4H PRN PRN Reason: Pain, severe (8-10) Last Admin: 08/06/17 09:38 Dose: 4 mg Pantoprazole Sodium (Protonix Ec Tab) 40 mg PO 0600 [facility] Last Admin: 08/06/17 06:04 Dose: 40 mg Thiamine HCl (Vitamin B1 Tab) 100 mg PO DAILY [facility] Last Admin: 08/06/17 09:10 Dose: 100 mg - Labs Labs: 08/06/17 06:40 08/06/17 06:40 PT 14.1 SECONDS (9.4-12.5) H 08/05/17 05:30 INR 1.22 (0.93-1.08) H 08/05/17 05:30 APTT 34.8 Seconds (25.1-36.5) 08/04/17 10:10 - Constitutional Appears: Well, No Acute Distress - Head Exam Head Exam: ATRAUMATIC, NORMOCEPHALIC - Eye Exam Eye Exam: Normal appearance - ENT Exam ENT Exam: Mucous Membranes Moist, Normal Exam - Neck Exam Neck Exam: Normal Inspection - Respiratory Exam Respiratory Exam: Clear to Ausculation Bilateral, NORMAL BREATHING PATTERN. absent: Rales, Rhonchi, Respiratory Distress - Cardiovascular Exam Cardiovascular Exam: REGULAR RHYTHM, +S1, +S2 - GI/Abdominal Exam GI & Abdominal Exam: Soft, Normal Bowel Sounds. absent: Guarding, Rigid, Tenderness, Organomegaly - Extremities Exam Extremities Exam: absent: Joint Swelling, Pedal Edema - Neurological Exam Neurological Exam: Alert, Awake, Oriented x3 - Psychiatric Exam Psychiatric exam: Normal Affect, Normal Mood - Skin Skin Exam: Dry, Intact, Normal Color, Warm Assessment and Plan - Assessment and Plan (Free Text) Assessment: Hector Camacho is a 67 year old male with PMHx of Afib, Hep C, seizure, DVT, Diabetes who was admitted for evaluation and treatment for ED for evaluation and treatment of twin-umbilical abdominal pain. Pt found to have a necrotic pancreatic head mall will liver lesions Pancreatic mass, likely malignant Liver lesions, Likely mets Enlarged lymph Nodes Weightloss Plan: -agree with Ir guided biospy of liver mets -with invasion into hepatic artery, likely T4 -hem/onc consulted -prognosis and further tx based on biospy results -no GI intervention planned at this time -if pt is proceeding with possible treatment in the future will eventually need outp colonoscopy and EGD -diet as tolerated D/W Dr. Banks <Regis Banks - Last Filed: 08/06/17 12:06> Objective - Vital Signs/Intake and Output Vital Signs (last 24 hours): Temp Pulse Resp BP Pulse Ox 98 F 55 L 19 126/67 94 L 08/06/17 07:57 08/06/17 09:09 08/06/17 07:57 08/06/17 07:57 08/06/17 07:57 Intake and Output: 08/06/17 08/06/17 06:59 18:59 Intake Total 780 Output Total 450 Balance 330 - Medications Medications: Current Medications Alprazolam (Xanax) 0.5 mg PO DAILY [facility] PRN Reason: Protocol Last Admin: 08/06/17 09:10 Dose: 0.5 mg Atorvastatin Calcium (Lipitor) 40 mg PO DIN [facility] Last Admin: 08/05/17 18:44 Dose: 40 mg Docusate Sodium (Colace Liquid) 100 mg PO TID PRN PRN Reason: Constipation Gabapentin (Neurontin) 300 mg PO TID [facility] PRN Reason: Protocol Last Admin: 08/06/17 09:09 Dose: 300 mg Insulin Human Lispro (Humalog Med) 0 units SC ACHS [facility] PRN Reason: Protocol Last Admin: 08/06/17 09:07 Dose: 3 units Levetiracetam (Keppra) 500 mg PO Q12 [facility] Last Admin: 08/06/17 09:09 Dose: 500 mg Metoprolol Tartrate (Lopressor) 5 mg IVP ONCE PRN PRN Reason: heart rate > 115 bpm Metoprolol Tartrate (Lopressor) 25 mg PO BID [facility] Last Admin: 08/06/17 09:09 Dose: Not Given Morphine Sulfate (Morphine) 4 mg IVP Q4H PRN PRN Reason: Pain, severe (8-10) Last Admin: 08/06/17 09:38 Dose: 4 mg Ondansetron HCl (Zofran Inj) 4 mg IVP Q6H PRN PRN Reason: Nausea/Vomiting Pantoprazole Sodium (Protonix Ec Tab) 40 mg PO 0600 [facility] Last Admin: 08/06/17 06:04 Dose: 40 mg Polyethylene Glycol (Miralax) 17 gm PO BID PRN PRN Reason: Constipation Thiamine HCl (Vitamin B1 Tab) 100 mg PO DAILY [facility] Last Admin: 08/06/17 09:10 Dose: 100 mg - Labs Labs: 08/06/17 06:40 08/06/17 06:40 PT 14.1 SECONDS (9.4-12.5) H 08/05/17 05:30 INR 1.22 (0.93-1.08) H 08/05/17 05:30 APTT 34.8 Seconds (25.1-36.5) 08/04/17 10:10 Attending/Attestation - Attestation I have personally seen and examined this patient.: Yes I have fully participated in the care of the patient.: Yes I have reviewed all pertinent clinical information, including history, physical exam and plan: Yes Notes (Text): 08/06/17 12:03 I have seen and examined patient with GI fellow. No acute events overnight, he is seen resting in bed comfortably. He denies abdominal pain, nausea, vomiting , fever/chills. Tolerating PO diet without difficulty. Review of vitals from today are normal. Atrial fibrillation on xarelto HTN HCV DM DVT Abdominal pain, weight loss - clinical scenario suggestive of advanced metastatic pancreatic cancer - Diet as tolerated - Patient to be scheduled for IR guided liver biopsy and paracentesis, follow up results - Follow up oncology recommendations - Patient would benefit from elective outpatient colonoscopy pending further staging workup - No further planned inpatient GI interventions, will sign off case. Please reconsult as necessary, thank you.
[2017-08-06] MEDS ORDERED: Insulin Lispro (humaLOG) MEDIUM Coverage SC SCH (16:30)
[2017-08-06] MEDS ORDERED: Lidocaine 1% Inj (20ml) ONE (16:57)
[2017-08-06] MEDS ORDERED: Midazolam 2 MG/2 ML VIAL ONE (16:57)
[2017-08-06] MEDS: Insulin Lispro (HUMAlog) HIGH Coverage SC SCH ×2 (17:47→21:12)
[2017-08-06] MEDS ORDERED: Sodium Chloride 0.45% 1,000 ML IV SCH (18:00)
[2017-08-06] MEDS ORDERED: Metoprolol 1 mg/ml Inj IVP ONE (18:21)
--- NOTE | 2017-08-06 19:19 | CT ---
PROCEDURE: CT guided liver biopsy. HISTORY: Hepatic mass. Evaluate for malignancy. PHYSICIAN(S): Ruddy Webb MD. TECHNIQUE: The relative risks and indications of the procedure were explained to the patient and consent obtained. The patient was placed supine on the CT scanner and preliminary images through the liver obtained. Conscious sedation and monitoring were provided throughout the procedure by a nurse. There is an infiltrative mass replacing the majority of the left lobe. Volume loss and apparent dilated ducts are present. There are at extrahepatic lymph nodes in the katelyn and peripancreatic area. A small amount of ascites is present. The differential would include hepatoma or cholangiocarcinoma A subxyphoid approach was selected and the area prepped and draped in the usual sterile fashion. 1% Xylocaine was used to anesthetize the skin and soft tissues. A 17-gauge guiding needle was advanced into the lateral segment of the left lobe of the liver. Its position was confirmed with CT. Using coaxial technique, multiple core biopsies were obtained. The postprocedure images show no evidence of significant hemorrhage. IMPRESSION: 1. CT-guided liver biopsy as described above.
[2017-08-07] MEDS: Morphine 4 mg/ml ISec IVP PRN ×4 (02:05→21:46)
[2017-08-07] MEDS: Pantoprazole 40 mg EC Tab PO SCH (05:40)
[2017-08-07 06:32] LABS: BASO # 0.01 K/mm3 (0.0-2.0); BASO % 0.1 % (0.0-3.0); EOS % 0.5 % (1.5-5.0); GRAN # 6.52 (1.4-6.5); HEMOGLOBIN 11.2 g/dL (14.0-18.0); LYMPH # 0.8 (1.2-3.4); LYMPH % 9.7 % (22.0-35.0); MEAN CELL VOLUME 87.5 fl (80.0-105.0); MEAN CORPUSCULAR HEMOGLOBIN 27.5 pg (25.0-35.0); MEAN CORPUSCULAR HGB CONC 31.4 g/dl (31.0-37.0); MEAN PLATELET VOLUME 10.1 fl (7.0-11.0); MONO # 0.6 (0.1-0.6); MONO % 7.7 % (1.0-6.0); RBC 4.08 10^6/uL (3.5-6.1); RED CELL DISTRIBUTION WIDTH 14.2 % (11.5-14.5)
[2017-08-07 07:35] LABS: ALBUMIN 2.8 g/dL (3.0-4.8); ALT/SGPT 16 U/L (7-56); AST/SGOT 17 U/L (17-59); BLOOD UREA NITROGEN 18 mg/dL (7-21); CALCIUM 8.6 mg/dL (8.4-10.5); GFR AFRICAN-AMERICAN > 60; GFR NON-AFRICAN AMERICAN > 60
[2017-08-07] MEDS: Insulin Lispro (HUMAlog) HIGH Coverage SC SCH ×4 (08:20→21:42)
--- NOTE | 2017-08-07 10:10 | CP.PCM.DIS ---
Provider - Provider Date of Admission: 08/06/17 14:21 Attending physician: Germain Tim MD Time Spent in preparation of Discharge (in minutes): 45 Diagnosis - Discharge Diagnosis (1) Ascites Status: Acute (2) Intractable abdominal pain Status: Acute (3) Metastases to the liver Status: Acute (4) Pancreatic mass Status: Acute Hospital Course - Lab Results Lab Results: Most Recent Lab Values WBC 8.0 10^3/ul (4.5-11.0) 08/07/17 05:30 RBC 4.08 10^6/uL (3.5-6.1) 08/07/17 05:30 Hgb 11.2 g/dL (14.0-18.0) L 08/07/17 05:30 Hct 35.7 % (42.0-52.0) L 08/07/17 05:30 MCV 87.5 fl (80.0-105.0) 08/07/17 05:30 MCH 27.5 pg (25.0-35.0) 08/07/17 05:30 MCHC 31.4 g/dl (31.0-37.0) 08/07/17 05:30 RDW 14.2 % (11.5-14.5) 08/07/17 05:30 Plt Count 255 10^3/uL (120.0-450.0) 08/07/17 05:30 MPV 10.1 fl (7.0-11.0) 08/07/17 05:30 Gran % 82.0 % (50.0-68.0) H 08/07/17 05:30 Lymph % (Auto) 9.7 % (22.0-35.0) L 08/07/17 05:30 [place] % (Auto) 7.7 % (1.0-6.0) H 08/07/17 05:30 Eos % (Auto) 0.5 % (1.5-5.0) L 08/07/17 05:30 Baso % (Auto) 0.1 % (0.0-3.0) 08/07/17 05:30 Gran # 6.52 (1.4-6.5) H 08/07/17 05:30 Lymph # (Auto) 0.8 (1.2-3.4) L 08/07/17 05:30 [place] # (Auto) 0.6 (0.1-0.6) 08/07/17 05:30 Eos # (Auto) 0.0 (0.0-0.7) 08/07/17 05:30 Baso # (Auto) 0.01 K/mm3 (0.0-2.0) 08/07/17 05:30 PT 14.1 SECONDS (9.4-12.5) H 08/05/17 05:30 INR 1.22 (0.93-1.08) H 08/05/17 05:30 APTT 34.8 Seconds (25.1-36.5) 08/04/17 10:10 pO2 27 mm/Hg (30-55) L 08/04/17 10:50 VBG pH 7.36 (7.32-7.43) 08/04/17 10:50 VBG pCO2 54.0 (40-60) 08/04/17 10:50 VBG HCO3 30.5 mmol/l (21-28) H 08/04/17 10:50 VBG Total CO2 32.2 mmol.L (22-28) H 08/04/17 10:50 VBG O2 Sat (Calc) 53.6 % (40-65) 08/04/17 10:50 VBG Base Excess 3.7 mmol/L (0.0-2.0) H 08/04/17 10:50 VBG Potassium 3.1 mmol/L (3.6-5.2) L 08/04/17 10:50 Sodium 140.0 mmol/L (132-148) 08/04/17 10:50 Chloride 105.0 mmol/L (98-107) 08/04/17 10:50 Glucose 165 mg/dl (75-110) H 08/04/17 10:50 Lactate 1.2 mmol/L (0.7-2.1) 08/04/17 10:50 FiO2 21.0 % 08/04/17 10:50 Sodium 140 mmol/L (132-148) 08/07/17 05:30 Potassium 4.6 mmol/L (3.6-5.0) 08/07/17 05:30 Chloride 101 mmol/L (98-107) 08/07/17 05:30 Carbon Dioxide 27 mmol/L (21-33) 08/07/17 05:30 Anion Gap 16 (10-20) 08/07/17 05:30 BUN 18 mg/dL (7-21) 08/07/17 05:30 Creatinine 0.9 mg/dl (0.8-1.5) 08/07/17 05:30 Est GFR ( Amer) > 60 08/07/17 05:30 Est GFR (Non-Af Amer) > 60 08/07/17 05:30 POC Glucose (mg/dL) 216 mg/dL (65-110) H 08/07/17 07:22 Random Glucose 241 mg/dL (70-110) H 08/07/17 05:30 Hemoglobin A1c 8.5 % (4.2-6.5) H D 08/04/17 16:31 Calcium 8.6 mg/dL (8.4-10.5) 08/07/17 05:30 Magnesium 1.9 mg/dL (1.7-2.2) 08/05/17 05:30 Total Bilirubin 0.5 mg/dL (0.2-1.3) 08/07/17 05:30 AST 17 U/L (17-59) 08/07/17 05:30 ALT 16 U/L (7-56) 08/07/17 05:30 Alkaline Phosphatase 115 U/L (38-126) 08/07/17 05:30 Lactate Dehydrogenase 410 U/L (333-699) 08/04/17 10:10 Total Creatine Kinase 23 U/L (35-230) L 08/04/17 10:10 Troponin I 0.04 ng/mL D 08/04/17 10:10 Total Protein 5.7 g/dL (5.8-8.3) L 08/07/17 05:30 Albumin 2.8 g/dL (3.0-4.8) L 08/07/17 05:30 Globulin 2.9 gm/dL 08/07/17 05:30 Albumin/Globulin Ratio 1.0 (1.1-1.8) L 08/07/17 05:30 Amylase 57 U/L (35-125) 08/04/17 10:10 Lipase 75 U/L (23-300) 08/04/17 10:10 Venous Blood Potassium 3.1 mmol/L (3.6-5.2) L 08/04/17 10:50 Urine Color Yellow (YELLOW) 08/04/17 12:40 Urine Appearance Sl cloudy (CLEAR) 08/04/17 12:40 Urine pH 6.0 (4.7-8.0) 08/04/17 12:40 Ur Specific [place] 1.025 (1.005-1.035) 08/04/17 12:40 Urine Protein 30 mg/dL (<30 mg/dL) H 08/04/17 12:40 Urine Glucose (UA) Negative mg/dL (NEGATIVE) 08/04/17 12:40 Urine Ketones Negative mg/dL (NEGATIVE) 08/04/17 12:40 Urine Blood Negative (NEGATIVE) 08/04/17 12:40 Urine Nitrate Negative (NEGATIVE) 08/04/17 12:40 Urine Bilirubin Negative (NEGATIVE) 08/04/17 12:40 Urine Urobilinogen 0.2 E.U./dL (<1 E.U./dL) 08/04/17 12:40 Ur Leukocyte Esterase Negative Wanda/uL (NEGATIVE) 08/04/17 12:40 Urine RBC Negative /hpf (0-2) 08/04/17 12:40 Urine WBC Negative /hpf (0-6) 08/04/17 12:40 Urine Other Mucus 08/04/17 12:40 Hepatitis A IgM Ab Negative (NEGATIVE) 08/04/17 16:31 Hep Bs Antigen Negative (NEGATIVE) 08/04/17 16:31 Hep B Core IgM Ab Negative (NEGATIVE) 08/04/17 16:31 Hepatitis C Antibody Reactive (NEGATIVE) 08/04/17 16:31 - Hospital Course Hospital Course: Patient is a 67 year old male with PMHx of Afib, Hep C, seizure, DVT, Diabetes who was admitted for evaluation and treatment for ED for evaluation and treatment of twin-umbilical abdominal pain. With the use of physical examinations, lab work, and imaging the patient was diagnosed with and treated for abdominal pain secondary to metastatic disease. During their hospital stay the patient was seen by gastroenterology (Dr. Banks), hematology/oncology (Dr. Bess), and interventional radiology (Dr. Webb) and their recommendations were both appreciated and utilized in the care for this patient. GI agreed with Ir guided biospy of liver mets. Dr. Webb performed a biopsy of the liver mets without any complications. During their hospital stay the patient underwent a CT of abdomen/pelvis which were reviewed, appreciated, and utilized in the management of the patients clinical course. CT of abdomen/pelvis revealed a necrotic mass in the head of the pancreas with a diffuse and infiltrative component to adjacent lymph node chains extending to the katelyn hepatis, hepatic metastatic disease, intra-abdominal and pelvic ascites which was presumed to be malignant. Currently awaiting pathology report. Patient informed that he will be notified when report is available. Patient was treated with antihypertensive medications, antiepileptic medications, and restarted on his anticoagulation drugs. At this time the patient is medically stable for discharge. Patient understands and appreciates discharge plan. Patient instructed to follow up with primary care physicians and referrals within three to five days from discharge. Furthermore, the patient is instructed to take medications as prescribed and to return to emergency room for evaluation of intractable headache, fever, chills, dizziness, chest pain, shortness of breath, abdominal pain, nausea, vomiting, diarrhea, constipation, and urinary symptoms. This is a brief summary of the patients hospital course. Please see patient chart for full details. Discharge Exam - Head Exam Head Exam: ATRAUMATIC, NORMOCEPHALIC - Additional Findings Additional findings: - Constitutional Appears: Well, No Acute Distress - Head Exam Head Exam: ATRAUMATIC, NORMOCEPHALIC - Eye Exam Eye Exam: Normal appearance - ENT Exam ENT Exam: Mucous Membranes Moist, Normal Exam - Neck Exam Neck Exam: Normal Inspection - Respiratory Exam Respiratory Exam: Clear to Ausculation Bilateral, NORMAL BREATHING PATTERN. absent: Rales, Rhonchi, Respiratory Distress - Cardiovascular Exam Cardiovascular Exam: +S1, +S2 - GI/Abdominal Exam GI & Abdominal Exam: Soft, Normal Bowel Sounds. absent: Guarding, Rigid, Tenderness, Organomegaly - Extremities Exam Extremities Exam: no clubbing, no cynaosis, no edema; absent: Joint Swelling, Pedal Edema - Neurological Exam Neurological Exam: Alert, Awake, Oriented x3 - Psychiatric Exam Psychiatric exam: Normal Affect, Normal Mood - Skin Skin Exam: Dry, Intact, Normal Color, Warm Discharge Plan - Follow Up Plan Condition: STABLE Disposition: HOME/ ROUTINE Patient education suggested?: Yes Additional Instructions: Patient Instructions: Take medications as prescribed. Follow up with PMD and referrals within three to five days from discharge. Return to the emergency room for evaluation of intractable headache, fever, chills, dizziness, chest pain, shortness of breath, abdominal pain, nausea, vomiting, diarrhea, constipation, and urinary symptoms.
--- NOTE | 2017-08-07 12:19 | CP.PCM.PN ---
<Phong Simon - Last Filed: 08/07/17 12:07> Subjective - Date & Time of Evaluation Date of Evaluation: 08/07/17 Time of Evaluation: 09:20 - Subjective Subjective: Subjective: Patient seen and examined. No acute events no overnight. Denies complications since procedure on 08/06/2017. Offers no new complaints at this time. Denies fever, chills, chest pain, shortness of breath, abdominal pain, vomiting, diarrhea, constipation, and urinary symptoms. Physical Examination: - Constitutional Appears: NAD - Head Exam Head Exam: ATRAUMATIC, NORMAL INSPECTION, NORMOCEPHALIC - Eye Exam Eye Exam: EOMI, Normal appearance, PERRL - ENT Exam ENT Exam: Mucous Membranes Moist, Normal Exam - Neck Exam Neck exam: Positive for: Normal Inspection - Respiratory Exam Respiratory Exam: NORMAL BREATHING PATTERN, CTA bilaterally - Cardiovascular Exam Cardiovascular Exam: REGULAR RHYTHM - GI/Abdominal Exam GI & Abdominal Exam: bandage is clean dry and intact - Extremities Exam Extremities exam: Positive for: normal inspection - Neurological Exam Neurological exam: Alert, CN II-XII Intact, Normal Gait, Oriented x3, Reflexes Normal - Psychiatric Exam Psychiatric exam: Normal Affect, Normal Mood Assessment and Plan: Patient is a 67 year old male with PMHx of Afib, Hep C, seizure, DVT, Diabetes who was admitted for evaluation and treatment for ED for evaluation and treatment of twin-umbilical abdominal pain. Abdominal Pain - CT of abdomen/pelvis: 1. Necrotic mass in the head of the pancreas with a diffuse and infiltrative component to adjacent lymph node chains extending to the katelyn hepatis. 2. Hepatic metastatic disease. 3. Intra-abdominal and pelvic ascites presumed to be malignant. - Hematology/oncology consulted- appreciate recommendations - GI consulted- appreciate recommendations- agree with Ir guided biospy of liver mets, if pt is proceeding with possible treatment in the future will eventually need outp colonoscopy and EGD - IR consulted for biopsy- appreciate recommendations-- biopsy performed on 08/06- awaiting pathology report Constipation - miralax and docusate Nausea - zofran 4mg IV q6 prn, QTc 449 Hx of Seizure disorders - will continue with keppra 500 mg bid - will obtain keppra level- pending - Seizure and fall precaution Hx of CAD s/p CABG - continue with Lopressor - continue with Lipitor Hx of Atrial fibrillation - EKG- atrial fibrillation with RVR- rate control with lopessor - continue Lopressor - c/w xarelto and aspirin - PT-INR trend Hx of IDDM2 - ACHS - hold home insulin - moderate carb controlled diet - will hold metformin Hx of Peripheral neuropathy -continue with gabapentin Hx of Anxiety - continue xanax 0.5 mg bid prn Gait instability - PT eval- appreciate input- recommends subacute rehabilitation Prophylaxis - DVT prophylaxis-c/w xarelto and SCDs in patient - GI prophylaxis - on protonix Patient case discussed with, and plan approved by attending physician, Dr. Tim. Objective - Vital Signs/Intake and Output Vital Signs (last 24 hours): Temp Pulse Resp BP Pulse Ox 98.6 F 40 L 18 132/99 H 97 08/07/17 08:17 08/07/17 09:49 08/07/17 08:17 08/07/17 08:17 08/07/17 08:17 Intake and Output: 08/07/17 08/07/17 06:59 18:59 Intake Total 1320 120 Output Total 350 Balance 970 120 - Medications Medications: Current Medications Alprazolam (Xanax) 0.5 mg PO DAILY [facility] PRN Reason: Protocol Last Admin: 08/07/17 09:48 Dose: 0.5 mg Aspirin (Ecotrin) 81 mg PO DAILY [facility] Atorvastatin Calcium (Lipitor) 40 mg PO DIN [facility] Last Admin: 08/06/17 17:48 Dose: Not Given Docusate Sodium (Colace Liquid) 100 mg PO TID PRN PRN Reason: Constipation Gabapentin (Neurontin) 300 mg PO TID [facility] PRN Reason: Protocol Last Admin: 08/07/17 09:49 Dose: 300 mg Insulin Human Lispro (Humalog High) 0 units SC ACHS [facility] PRN Reason: Protocol Last Admin: 08/07/17 11:38 Dose: 4 units Levetiracetam (Keppra) 500 mg PO Q12 [facility] Last Admin: 08/07/17 09:49 Dose: 500 mg Metoprolol Tartrate (Lopressor) 5 mg IVP ONCE PRN PRN Reason: heart rate > 115 bpm Metoprolol Tartrate (Lopressor) 25 mg PO BID [facility] Last Admin: 08/07/17 09:49 Dose: Not Given Morphine Sulfate (Morphine) 4 mg IVP Q4H PRN PRN Reason: Pain, severe (8-10) Last Admin: 08/07/17 08:21 Dose: 4 mg Ondansetron HCl (Zofran Inj) 4 mg IVP Q6H PRN PRN Reason: Nausea/Vomiting Last Admin: 08/07/17 02:12 Dose: 4 mg Pantoprazole Sodium (Protonix Ec Tab) 40 mg PO 0600 [facility] Last Admin: 08/07/17 05:40 Dose: 40 mg Polyethylene Glycol (Miralax) 17 gm PO BID PRN PRN Reason: Constipation Rivaroxaban (Xarelto) 15 mg PO DAILY [facility] PRN Reason: Protocol Thiamine HCl (Vitamin B1 Tab) 100 mg PO DAILY [facility] Last Admin: 08/07/17 09:49 Dose: 100 mg - Labs Labs: 08/07/17 05:30 08/07/17 05:30 PT 14.1 SECONDS (9.4-12.5) H 08/05/17 05:30 INR 1.22 (0.93-1.08) H 08/05/17 05:30 APTT 34.8 Seconds (25.1-36.5) 08/04/17 10:10 Assessment and Plan (1) Ascites Status: Acute (2) Intractable abdominal pain Status: Acute (3) Metastases to the liver Status: Acute (4) Pancreatic mass Status: Acute <Germain Tim - Last Filed: 08/07/17 15:18> Objective - Vital Signs/Intake and Output Vital Signs (last 24 hours): Temp Pulse Resp BP Pulse Ox 98.6 F 40 L 18 132/99 H 97 08/07/17 08:17 08/07/17 09:49 08/07/17 08:17 08/07/17 08:17 08/07/17 08:17 Intake and Output: 08/07/17 08/07/17 06:59 18:59 Intake Total 1320 600 Output Total 350 200 Balance 970 400 - Medications Medications: Current Medications Alprazolam (Xanax) 0.5 mg PO DAILY [facility] PRN Reason: Protocol Last Admin: 08/07/17 09:48 Dose: 0.5 mg Aspirin (Ecotrin) 81 mg PO DAILY [facility] Last Admin: 08/07/17 12:20 Dose: Not Given Atorvastatin Calcium (Lipitor) 40 mg PO DIN [facility] Last Admin: 08/06/17 17:48 Dose: Not Given Docusate Sodium (Colace Liquid) 100 mg PO TID PRN PRN Reason: Constipation Gabapentin (Neurontin) 300 mg PO TID [facility] PRN Reason: Protocol Last Admin: 08/07/17 14:13 Dose: 300 mg Insulin Human Lispro (Humalog High) 0 units SC ACHS [facility] PRN Reason: Protocol Last Admin: 08/07/17 11:38 Dose: 4 units Levetiracetam (Keppra) 500 mg PO Q12 [facility] Last Admin: 08/07/17 09:49 Dose: 500 mg Metoprolol Tartrate (Lopressor) 5 mg IVP ONCE PRN PRN Reason: heart rate > 115 bpm Metoprolol Tartrate (Lopressor) 25 mg PO BID [facility] Last Admin: 08/07/17 09:49 Dose: Not Given Morphine Sulfate (Morphine) 4 mg IVP Q4H PRN PRN Reason: Pain, severe (8-10) Last Admin: 08/07/17 14:49 Dose: 4 mg Ondansetron HCl (Zofran Inj) 4 mg IVP Q6H PRN PRN Reason: Nausea/Vomiting Last Admin: 08/07/17 02:12 Dose: 4 mg Pantoprazole Sodium (Protonix Ec Tab) 40 mg PO 0600 [facility] Last Admin: 08/07/17 05:40 Dose: 40 mg Polyethylene Glycol (Miralax) 17 gm PO BID PRN PRN Reason: Constipation Rivaroxaban (Xarelto) 15 mg PO DAILY [facility] PRN Reason: Protocol Last Admin: 08/07/17 12:27 Dose: 15 mg Thiamine HCl (Vitamin B1 Tab) 100 mg PO DAILY [facility] Last Admin: 08/07/17 09:49 Dose: 100 mg - Labs Labs: 08/07/17 05:30 08/07/17 05:30 PT 14.1 SECONDS (9.4-12.5) H 08/05/17 05:30 INR 1.22 (0.93-1.08) H 08/05/17 05:30 APTT 34.8 Seconds (25.1-36.5) 08/04/17 10:10 Attending/Attestation - Attestation I have personally seen and examined this patient.: Yes I have fully participated in the care of the patient.: Yes I have reviewed all pertinent clinical information, including history, physical exam and plan: Yes Notes (Text): 08/07/17 15:10 attending note; Patient seen and examined with resident. Patient is a 67 year old male with PMhx of Afib, Hep C, diabetes, seizure, Diabetes who presents to the ED for evaluation and treatment of twin-umbilical abdominal pain. CT abdomen and pelvic showed necrotic pancreatic mass and liver metastases and ascites. Abdominal pain; started on IV morphine. GI evaluation appreciated. Status post liver biopsy yesterday. GI and oncology evaluation appreciated. A. fib; rate controlled. Continue metoprolol. Continue aspirin and xeralto. diabetes; continue regular insulin sliding scale. PT evaluation appreciated. Subacute rehabilitation recommended. Case discussed with rn field case manager for discharge planning. upon discharge the [facility] [place].
[2017-08-08] MEDS: Pantoprazole 40 mg EC Tab PO SCH (05:25)
[2017-08-08] MEDS: Morphine 4 mg/ml ISec IVP PRN ×3 (06:18→15:41)
[2017-08-08 06:26] LABS: BASO # 0.01 K/mm3 (0.0-2.0); BASO % 0.1 % (0.0-3.0); EOS # 0.1 (0.0-0.7); EOS % 0.8 % (1.5-5.0); GRAN # 6.72 (1.4-6.5); LYMPH # 0.6 (1.2-3.4); MONO # 0.7 (0.1-0.6); MONO % 8.1 % (1.0-6.0); RBC 4.08 10^6/uL (3.5-6.1); RED CELL DISTRIBUTION WIDTH 14.1 % (11.5-14.5)
[2017-08-08 07:05] LABS: ALB/GLOB RATIO 1.1 (1.1-1.8); ALBUMIN 2.9 g/dL (3.0-4.8); ALT/SGPT 23 U/L (7-56); AST/SGOT 16 U/L (17-59); BLOOD UREA NITROGEN 18 mg/dL (7-21); CALCIUM 8.6 mg/dL (8.4-10.5); GFR AFRICAN-AMERICAN > 60; GFR NON-AFRICAN AMERICAN > 60
[2017-08-08] MEDS: Insulin Lispro (HUMAlog) HIGH Coverage SC SCH ×4 (08:39→21:17)
[2017-08-08] MEDS: POLYETHYLENE GLYCOL 3350 17 GM/Dose PACKET PO PRN (11:15)
--- NOTE | 2017-08-08 12:54 | CP.PCM.PN ---
<Phong Simon - Last Filed: 08/08/17 12:50> Subjective - Date & Time of Evaluation Date of Evaluation: 08/08/17 Time of Evaluation: 11:30 - Subjective Subjective: Subjective: Patient seen and examined. No acute events no overnight. Denies complications since procedure on 08/06/2017. States that feels constipated and has not experienced a bowel movement in 3 days. Tolerating diet. Denies fever, chills, chest pain, shortness of breath, abdominal pain, vomiting, diarrhea, and urinary symptoms. Physical Examination: - Constitutional Appears: NAD - Head Exam Head Exam: ATRAUMATIC, NORMAL INSPECTION, NORMOCEPHALIC - Eye Exam Eye Exam: EOMI, Normal appearance, PERRL - ENT Exam ENT Exam: Mucous Membranes Moist, Normal Exam - Neck Exam Neck exam: Positive for: Normal Inspection - Respiratory Exam Respiratory Exam: NORMAL BREATHING PATTERN, CTA bilaterally - Cardiovascular Exam Cardiovascular Exam: REGULAR RHYTHM - GI/Abdominal Exam GI & Abdominal Exam: bandage is clean dry and intact - Extremities Exam Extremities exam: Positive for: normal inspection - Neurological Exam Neurological exam: Alert, CN II-XII Intact, Normal Gait, Oriented x3, Reflexes Normal - Psychiatric Exam Psychiatric exam: Normal Affect, Normal Mood Assessment and Plan: Patient is a 67 year old male with PMHx of Afib, Hep C, seizure, DVT, Diabetes who was admitted for evaluation and treatment for ED for evaluation and treatment of twin-umbilical abdominal pain. Abdominal Pain - CT of abdomen/pelvis: 1. Necrotic mass in the head of the pancreas with a diffuse and infiltrative component to adjacent lymph node chains extending to the katelyn hepatis. 2. Hepatic metastatic disease. 3. Intra-abdominal and pelvic ascites presumed to be malignant. - Hematology/oncology consulted- appreciate recommendations - GI consulted- appreciate recommendations- agree with Ir guided biospy of liver mets, if pt is proceeding with possible treatment in the future will eventually need outp colonoscopy and EGD - IR consulted for biopsy- appreciate recommendations-- biopsy performed on 08/06- awaiting pathology report - CEA and CA 19-9 elevated Constipation - c/w miralax and docusate Nausea - zofran 4mg IV q6 prn, QTc 449 Hx of Seizure disorders - will continue with keppra 500 mg bid - will obtain keppra level- pending - Seizure and fall precaution Hx of CAD s/p CABG - continue with Lopressor - continue with Lipitor Hx of Atrial fibrillation - EKG- atrial fibrillation with RVR- rate control with lopessor - continue Lopressor - c/w xarelto and aspirin - PT-INR trend Hx of IDDM2 - ACHS - hold home insulin - moderate carb controlled diet - will hold metformin Hx of Peripheral neuropathy -continue with gabapentin Hx of Anxiety - continue xanax 0.5 mg bid prn Gait instability - PT eval- appreciate input- recommends subacute rehabilitation Prophylaxis - DVT prophylaxis-c/w xarelto and SCDs in patient - GI prophylaxis - on protonix Dispo: awaiting call back from [facility] office to establish transfer of care to their facilities Patient case discussed with, and plan approved by attending physician, Dr. Tim. Objective - Vital Signs/Intake and Output Vital Signs (last 24 hours): Temp Pulse Resp BP Pulse Ox 98.1 F 57 L 18 140/86 96 08/08/17 06:00 08/08/17 09:10 08/08/17 06:00 08/08/17 09:10 08/08/17 06:00 Intake and Output: 08/08/17 08/08/17 06:59 18:59 Intake Total 860 240 Output Total 300 Balance 560 240 - Medications Medications: Current Medications Alprazolam (Xanax) 0.5 mg PO DAILY [facility] PRN Reason: Protocol Last Admin: 08/08/17 09:09 Dose: 0.5 mg Aspirin (Ecotrin) 81 mg PO DAILY [facility] Last Admin: 08/08/17 09:10 Dose: Not Given Atorvastatin Calcium (Lipitor) 40 mg PO DIN [facility] Last Admin: 08/07/17 17:06 Dose: 40 mg Docusate Sodium (Colace Liquid) 100 mg PO TID PRN PRN Reason: Constipation Last Admin: 08/07/17 21:46 Dose: 100 mg Gabapentin (Neurontin) 300 mg PO TID [facility] PRN Reason: Protocol Last Admin: 08/08/17 09:10 Dose: 300 mg Insulin Human Lispro (Humalog High) 0 units SC ACHS [facility] PRN Reason: Protocol Last Admin: 08/08/17 12:38 Dose: 7 units Levetiracetam (Keppra) 500 mg PO Q12 [facility] Last Admin: 08/08/17 09:09 Dose: 500 mg Metoprolol Tartrate (Lopressor) 5 mg IVP ONCE PRN PRN Reason: heart rate > 115 bpm Metoprolol Tartrate (Lopressor) 25 mg PO BID [facility] Last Admin: 08/08/17 09:10 Dose: Not Given Morphine Sulfate (Morphine) 4 mg IVP Q4H PRN PRN Reason: Pain, severe (8-10) Last Admin: 08/08/17 11:15 Dose: 4 mg Ondansetron HCl (Zofran Inj) 4 mg IVP Q6H PRN PRN Reason: Nausea/Vomiting Last Admin: 08/07/17 02:12 Dose: 4 mg Pantoprazole Sodium (Protonix Ec Tab) 40 mg PO 0600 [facility] Last Admin: 08/08/17 05:25 Dose: 40 mg Polyethylene Glycol (Miralax) 17 gm PO BID PRN PRN Reason: Constipation Last Admin: 08/08/17 11:15 Dose: 17 gm Rivaroxaban (Xarelto) 15 mg PO DAILY [facility] PRN Reason: Protocol Last Admin: 08/08/17 09:09 Dose: 15 mg Thiamine HCl (Vitamin B1 Tab) 100 mg PO DAILY [facility] Last Admin: 08/08/17 09:09 Dose: 100 mg - Labs Labs: 08/08/17 05:30 08/08/17 05:30 PT 14.1 SECONDS (9.4-12.5) H 08/05/17 05:30 INR 1.22 (0.93-1.08) H 08/05/17 05:30 APTT 34.8 Seconds (25.1-36.5) 08/04/17 10:10 Assessment and Plan (1) Ascites Status: Acute (2) Intractable abdominal pain Status: Acute (3) Metastases to the liver Status: Acute (4) Pancreatic mass Status: Acute <Rangasamy,Ajantha - Last Filed: 08/08/17 17:34> Objective - Vital Signs/Intake and Output Vital Signs (last 24 hours): Temp Pulse Resp BP Pulse Ox 98.1 F 57 L 18 140/86 96 08/08/17 06:00 08/08/17 09:10 08/08/17 06:00 08/08/17 09:10 08/08/17 06:00 Intake and Output: 08/08/17 08/08/17 06:59 18:59 Intake Total 860 240 Output Total 300 Balance 560 240 - Medications Medications: Current Medications Alprazolam (Xanax) 0.5 mg PO DAILY [facility] PRN Reason: Protocol Last Admin: 08/08/17 09:09 Dose: 0.5 mg Aspirin (Ecotrin) 81 mg PO DAILY [facility] Last Admin: 08/08/17 09:10 Dose: Not Given Atorvastatin Calcium (Lipitor) 40 mg PO DIN [facility] Last Admin: 08/08/17 17:25 Dose: 40 mg Docusate Sodium (Colace Liquid) 100 mg PO TID PRN PRN Reason: Constipation Last Admin: 08/07/17 21:46 Dose: 100 mg Gabapentin (Neurontin) 300 mg PO TID [facility] PRN Reason: Protocol Last Admin: 08/08/17 17:25 Dose: 300 mg Insulin Human Lispro (Humalog High) 0 units SC ACHS [facility] PRN Reason: Protocol Last Admin: 08/08/17 17:25 Dose: 2 units Levetiracetam (Keppra) 500 mg PO Q12 [facility] Last Admin: 08/08/17 09:09 Dose: 500 mg Metoprolol Tartrate (Lopressor) 5 mg IVP ONCE PRN PRN Reason: heart rate > 115 bpm Metoprolol Tartrate (Lopressor) 25 mg PO BID [facility] Last Admin: 08/08/17 17:25 Dose: 25 mg Morphine Sulfate (Morphine) 4 mg IVP Q4H PRN PRN Reason: Pain, severe (8-10) Last Admin: 08/08/17 15:41 Dose: 4 mg Ondansetron HCl (Zofran Inj) 4 mg IVP Q6H PRN PRN Reason: Nausea/Vomiting Last Admin: 08/07/17 02:12 Dose: 4 mg Pantoprazole Sodium (Protonix Ec Tab) 40 mg PO 0600 [facility] Last Admin: 08/08/17 05:25 Dose: 40 mg Polyethylene Glycol (Miralax) 17 gm PO BID PRN PRN Reason: Constipation Last Admin: 08/08/17 11:15 Dose: 17 gm Rivaroxaban (Xarelto) 15 mg PO DAILY [facility] PRN Reason: Protocol Last Admin: 08/08/17 09:09 Dose: 15 mg Thiamine HCl (Vitamin B1 Tab) 100 mg PO DAILY [facility] Last Admin: 08/08/17 09:09 Dose: 100 mg - Labs Labs: 08/08/17 05:30 08/08/17 05:30 PT 14.1 SECONDS (9.4-12.5) H 08/05/17 05:30 INR 1.22 (0.93-1.08) H 08/05/17 05:30 APTT 34.8 Seconds (25.1-36.5) 08/04/17 10:10 Attending/Attestation - Attestation I have personally seen and examined this patient.: Yes I have fully participated in the care of the patient.: Yes I have reviewed all pertinent clinical information, including history, physical exam and plan: Yes Notes (Text): 08/08/17 17:31 attending note; Patient seen and examined with resident. Patient is a 67 year old male with PMhx of Afib, Hep C, diabetes, seizure, Diabetes who presents to the ED for evaluation and treatment of twin-umbilical abdominal pain. CT abdomen and pelvic showed necrotic pancreatic mass and liver metastases and ascites. Abdominal pain; on IV morphine. GI evaluation appreciated. Status post liver biopsy. awaiting pathology results. LFTs normal. CEA is mildly elevated. CA-19-9 is elevated. GI and oncology evaluation appreciated. A. fib; rate controlled. Continue metoprolol. Continue aspirin and xeralto. diabetes; continue regular insulin sliding scale. PT evaluation appreciated. Subacute rehabilitation recommended. case discussed with Dr. Villalba at [facility]. Recommended to call rehabilitation unit at [facility]. case will be reviewed on Friday. Possible transfer to [facility] on Friday. Case discussed with manager rn case for discharge planning. 08/08/17 17:32
[2017-08-09] MEDS: Pantoprazole 40 mg EC Tab PO SCH (05:18)
[2017-08-09] MEDS: Morphine 4 mg/ml ISec IVP PRN ×4 (05:47→20:36)
[2017-08-09 06:51] LABS: BASO # 0.02 K/mm3 (0.0-2.0); BASO % 0.2 % (0.0-3.0); EOS # 0.1 (0.0-0.7); EOS % 0.9 % (1.5-5.0); GRAN # 7.18 (1.4-6.5); LYMPH # 1.3 (1.2-3.4); MEAN CORPUSCULAR HEMOGLOBIN 27.2 pg (25.0-35.0); MEAN CORPUSCULAR HGB CONC 30.9 g/dl (31.0-37.0); MEAN PLATELET VOLUME 10.1 fl (7.0-11.0); MONO # 0.6 (0.1-0.6); MONO % 6.9 % (1.0-6.0); RBC 4.41 10^6/uL (3.5-6.1); RED CELL DISTRIBUTION WIDTH 14.2 % (11.5-14.5); WHITE BLOOD COUNT 9.2 10^3/ul (4.5-11.0)
[2017-08-09 07:20] LABS: ALB/GLOB RATIO 1.1 (1.1-1.8); ALBUMIN 3.2 g/dL (3.0-4.8); ALT/SGPT 17 U/L (7-56); AST/SGOT 22 U/L (17-59); BLOOD UREA NITROGEN 18 mg/dL (7-21); GFR AFRICAN-AMERICAN > 60; GFR NON-AFRICAN AMERICAN > 60
--- NOTE | 2017-08-09 07:35 | CP.PCM.PN ---
<Phong Simon - Last Filed: 08/09/17 12:04> Subjective - Date & Time of Evaluation Date of Evaluation: 08/09/17 Time of Evaluation: 09:30 - Subjective Subjective: Subjective: Patient seen and examined. HR elevated overnight with no associated symptoms ( no chest pain, no sob, no palpitations). Admits to experiencing bowel movement overnight. Tolerating diet. Admits to possibility of hurting himself pending results of pathology. Denies fever, chills, chest pain, shortness of breath, abdominal pain, vomiting, diarrhea, and urinary symptoms. Physical Examination: - Constitutional Appears: NAD - Head Exam Head Exam: ATRAUMATIC, NORMAL INSPECTION, NORMOCEPHALIC - Eye Exam Eye Exam: EOMI, Normal appearance, PERRL - ENT Exam ENT Exam: Mucous Membranes Moist, Normal Exam - Neck Exam Neck exam: Positive for: Normal Inspection - Respiratory Exam Respiratory Exam: NORMAL BREATHING PATTERN, CTA bilaterally - Cardiovascular Exam Cardiovascular Exam: +s1, +s2 - GI/Abdominal Exam GI & Abdominal Exam: bandage is clean dry and intact - Extremities Exam Extremities exam: Positive for: normal inspection - Neurological Exam Neurological exam: Alert, CN II-XII Intact, Normal Gait, Oriented x 3 Assessment and Plan: Patient is a 67 year old male with PMHx of Afib, Hep C, seizure, DVT, Diabetes who was admitted for evaluation and treatment for ED for evaluation and treatment of twin-umbilical abdominal pain. Tachycardia - patient transferred to telemetry - continue scheduled and prn Lopressor - c/w xarelto and aspirin Suicidal Ideation - patient states he was thinking of hurting himself pending results of path report - nurse, Yulia, informed to watch patient closely, told to place patient on 1: 1 - psychiatry consulted- appreciate considerations Abdominal Pain - CT of abdomen/pelvis: 1. Necrotic mass in the head of the pancreas with a diffuse and infiltrative component to adjacent lymph node chains extending to the katelyn hepatis. 2. Hepatic metastatic disease. 3. Intra-abdominal and pelvic ascites presumed to be malignant. - Hematology/oncology consulted- appreciate recommendations - GI consulted- appreciate recommendations- agree with Ir guided biospy of liver mets, if pt is proceeding with possible treatment in the future will eventually need outp colonoscopy and EGD - IR consulted for biopsy- appreciate recommendations-- biopsy performed on 08/06- awaiting pathology report - CEA and CA 19-9 elevated Constipation - c/w miralax and docusate Nausea - zofran 4mg IV q6 prn, QTc 449 Hyperglycemia; Hx of IDDM2 - blood glucoses reviewed, trended, and appreciated- elevated - started patient on home metformin - ACHS - hold home insulin - moderate carb controlled diet Hx of Seizure disorders - will continue with keppra 500 mg bid - will obtain keppra level- pending - Seizure and fall precaution Hx of CAD s/p CABG - continue with Lopressor - continue with Lipitor Hx of Atrial fibrillation - EKG- atrial fibrillation with RVR- rate control with lopessor - continue Lopressor - c/w xarelto and aspirin - PT-INR trend Hx of Peripheral neuropathy -continue with gabapentin Hx of Anxiety - continue xanax 0.5 mg bid prn Gait instability - PT eval- appreciate input- recommends subacute rehabilitation Prophylaxis - DVT prophylaxis-c/w xarelto and SCDs in patient - GI prophylaxis - on protonix Dispo: awaiting call back from [facility] office to establish transfer of care to their facilities Patient case discussed with, and plan approved by attending physician, Dr. Tim. Objective - Vital Signs/Intake and Output Vital Signs (last 24 hours): Temp Pulse Resp BP Pulse Ox 98.9 F 144 H 20 130/90 98 08/08/17 16:00 08/09/17 06:36 08/08/17 16:00 08/09/17 06:36 08/08/17 16:00 Intake and Output: 08/09/17 08/09/17 06:59 18:59 Intake Total 780 Balance 780 - Medications Medications: Current Medications Alprazolam (Xanax) 0.5 mg PO DAILY [facility] PRN Reason: Protocol Last Admin: 08/08/17 09:09 Dose: 0.5 mg Aspirin (Ecotrin) 81 mg PO DAILY [facility] Last Admin: 08/08/17 09:10 Dose: Not Given Atorvastatin Calcium (Lipitor) 40 mg PO DIN [facility] Last Admin: 08/08/17 17:25 Dose: 40 mg Docusate Sodium (Colace Liquid) 100 mg PO TID PRN PRN Reason: Constipation Last Admin: 08/07/17 21:46 Dose: 100 mg Gabapentin (Neurontin) 300 mg PO TID [facility] PRN Reason: Protocol Last Admin: 08/08/17 17:25 Dose: 300 mg Insulin Human Lispro (Humalog High) 0 units SC ACHS [facility] PRN Reason: Protocol Last Admin: 08/08/17 21:17 Dose: Not Given Levetiracetam (Keppra) 500 mg PO Q12 [facility] Last Admin: 08/08/17 21:14 Dose: 500 mg Metoprolol Tartrate (Lopressor) 5 mg IVP ONCE PRN PRN Reason: heart rate > 115 bpm Metoprolol Tartrate (Lopressor) 25 mg PO BID [facility] Last Admin: 08/09/17 06:36 Dose: 25 mg Morphine Sulfate (Morphine) 4 mg IVP Q4H PRN PRN Reason: Pain, severe (8-10) Last Admin: 08/09/17 05:47 Dose: 4 mg Ondansetron HCl (Zofran Inj) 4 mg IVP Q6H PRN PRN Reason: Nausea/Vomiting Last Admin: 08/07/17 02:12 Dose: 4 mg Pantoprazole Sodium (Protonix Ec Tab) 40 mg PO 0600 [facility] Last Admin: 08/09/17 05:18 Dose: 40 mg Polyethylene Glycol (Miralax) 17 gm PO BID PRN PRN Reason: Constipation Last Admin: 08/08/17 11:15 Dose: 17 gm Rivaroxaban (Xarelto) 15 mg PO DAILY [facility] PRN Reason: Protocol Last Admin: 08/08/17 09:09 Dose: 15 mg Thiamine HCl (Vitamin B1 Tab) 100 mg PO DAILY [facility] Last Admin: 08/08/17 09:09 Dose: 100 mg - Labs Labs: 08/09/17 06:00 08/09/17 06:00 PT 14.1 SECONDS (9.4-12.5) H 08/05/17 05:30 INR 1.22 (0.93-1.08) H 08/05/17 05:30 APTT 34.8 Seconds (25.1-36.5) 08/04/17 10:10 Assessment and Plan (1) Ascites Status: Acute (2) Intractable abdominal pain Status: Acute (3) Metastases to the liver Status: Acute (4) Pancreatic mass Status: Acute <Rangasamy,Ajantha - Last Filed: 08/09/17 15:44> Objective - Vital Signs/Intake and Output Vital Signs (last 24 hours): Temp Pulse Resp BP Pulse Ox 97.3 F L 140 H 20 132/85 97 08/09/17 07:37 08/09/17 13:33 08/09/17 07:37 08/09/17 13:33 08/09/17 13:21 Intake and Output: 08/09/17 08/09/17 06:59 18:59 Intake Total 780 480 Output Total 0 Balance 780 480 - Medications Medications: Current Medications Alprazolam (Xanax) 0.5 mg PO DAILY [facility] PRN Reason: Protocol Last Admin: 08/09/17 09:52 Dose: 0.5 mg Aspirin (Ecotrin) 81 mg PO DAILY [facility] Last Admin: 08/09/17 09:52 Dose: 81 mg Atorvastatin Calcium (Lipitor) 40 mg PO DIN [facility] Last Admin: 08/08/17 17:25 Dose: 40 mg Docusate Sodium (Colace Liquid) 100 mg PO TID PRN PRN Reason: Constipation Last Admin: 08/07/17 21:46 Dose: 100 mg Gabapentin (Neurontin) 300 mg PO TID [facility] PRN Reason: Protocol Last Admin: 08/09/17 13:07 Dose: 300 mg Insulin Human Lispro (Humalog High) 0 units SC ACHS [facility] PRN Reason: Protocol Last Admin: 08/09/17 11:05 Dose: Not Given Levetiracetam (Keppra) 500 mg PO Q12 [facility] Last Admin: 08/09/17 09:52 Dose: 500 mg Metformin HCl (Glucophage) 500 mg PO BID [facility] Last Admin: 08/09/17 09:51 Dose: 500 mg Metoprolol Tartrate (Lopressor) 25 mg PO BID [facility] Last Admin: 08/09/17 09:53 Dose: 25 mg Metoprolol Tartrate (Lopressor) 5 mg IVP Q6 PRN PRN Reason: heart rate > 120 bpm Morphine Sulfate (Morphine) 4 mg IVP Q4H PRN PRN Reason: Pain, severe (8-10) Last Admin: 08/09/17 09:47 Dose: 4 mg Ondansetron HCl (Zofran Inj) 4 mg IVP Q6H PRN PRN Reason: Nausea/Vomiting Last Admin: 08/07/17 02:12 Dose: 4 mg Pantoprazole Sodium (Protonix Ec Tab) 40 mg PO 0600 [facility] Last Admin: 08/09/17 05:18 Dose: 40 mg Polyethylene Glycol (Miralax) 17 gm PO BID PRN PRN Reason: Constipation Last Admin: 08/09/17 09:52 Dose: 17 gm Rivaroxaban (Xarelto) 15 mg PO DAILY [facility] PRN Reason: Protocol Last Admin: 08/09/17 09:51 Dose: 15 mg Thiamine HCl (Vitamin B1 Tab) 100 mg PO DAILY [facility] Last Admin: 08/09/17 09:52 Dose: 100 mg - Labs Labs: 08/09/17 06:00 08/09/17 06:00 PT 14.1 SECONDS (9.4-12.5) H 08/05/17 05:30 INR 1.22 (0.93-1.08) H 08/05/17 05:30 APTT 34.8 Seconds (25.1-36.5) 08/04/17 10:10 Attending/Attestation - Attestation I have personally seen and examined this patient.: Yes I have fully participated in the care of the patient.: Yes I have reviewed all pertinent clinical information, including history, physical exam and plan: Yes Notes (Text): 08/09/17 15:43 attending note; Patient seen and examined with resident. Patient is a 67 year old male with PMhx of Afib, Hep C, diabetes, seizure, Diabetes who presents to the ED for evaluation and treatment of twin-umbilical abdominal pain. CT abdomen and pelvic showed necrotic pancreatic mass and liver metastases and ascites. Abdominal pain; on IV morphine. GI evaluation appreciated. Status post liver biopsy. awaiting pathology results. CEA is mildly elevated. CA-19-9 is elevated. GI and oncology evaluation appreciated. A. fib; rate controlled. Continue metoprolol. Continue aspirin and xeralto. Episodes of tachycardia. Started on digoxin. Monitor telemetry. diabetes; continue regular insulin sliding scale. PT evaluation appreciated. Subacute rehabilitation recommended. case discussed with Dr. Villalba at [facility]. Recommended to call rehabilitation unit at [facility]. case will be reviewed on Friday. Possible transfer to [facility] next week. Case discussed with case hardener for discharge planning.
[2017-08-09] MEDS: Insulin Lispro (HUMAlog) HIGH Coverage SC SCH ×4 (08:37→21:48)
[2017-08-09] MEDS: POLYETHYLENE GLYCOL 3350 17 GM/Dose PACKET PO PRN (09:52)
[2017-08-09] MEDS ORDERED: Digoxin 125 mcg (0.125 mg) Tab PO ONE (13:12)
[2017-08-09] MEDS ORDERED: Metoprolol 1 mg/ml Inj IVP PRN (13:21)
[2017-08-09] MEDS: Metoprolol 1 mg/ml Inj IVP PRN (22:17)
[2017-08-10] MEDS: Morphine 4 mg/ml ISec IVP PRN (02:48)
[2017-08-10] MEDS: Pantoprazole 40 mg EC Tab PO SCH (05:24)
[2017-08-10 06:47] LABS: ALT/SGPT 18 U/L (7-56); AST/SGOT 19 U/L (17-59); BLOOD UREA NITROGEN 19 mg/dL (7-21); CALCIUM 8.7 mg/dL (8.4-10.5); GFR AFRICAN-AMERICAN > 60; GFR NON-AFRICAN AMERICAN > 60
[2017-08-10 07:03] LABS: BASO # 0.03 K/mm3 (0.0-2.0); BASO % 0.3 % (0.0-3.0); EOS # 0.1 (0.0-0.7); EOS % 0.8 % (1.5-5.0); GRAN # 6.97 (1.4-6.5); GRAN % 80.8 % (50.0-68.0); HEMOGLOBIN 11.6 g/dL (14.0-18.0); LYMPH # 0.8 (1.2-3.4); LYMPH % 9.1 % (22.0-35.0); MEAN CELL VOLUME 86.9 fl (80.0-105.0); MEAN CORPUSCULAR HEMOGLOBIN 27.6 pg (25.0-35.0); MEAN CORPUSCULAR HGB CONC 31.7 g/dl (31.0-37.0); MEAN PLATELET VOLUME 10.1 fl (7.0-11.0); MONO # 0.8 (0.1-0.6); RBC 4.21 10^6/uL (3.5-6.1); RED CELL DISTRIBUTION WIDTH 14.3 % (11.5-14.5); WHITE BLOOD COUNT 8.6 10^3/ul (4.5-11.0)
[2017-08-10] MEDS: Insulin Lispro (HUMAlog) HIGH Coverage SC SCH ×4 (08:09→21:30)
[2017-08-10] MEDS: Metoprolol 1 mg/ml Inj IVP PRN (08:12)
[2017-08-10] MEDS: POLYETHYLENE GLYCOL 3350 17 GM/Dose PACKET PO PRN (09:19)
[2017-08-10] MEDS: Morphine 15 mg Immediate Release Tab PO PRN ×2 (09:20→17:49)
[2017-08-10] MEDS ORDERED: Morphine 15 mg SR Tab PO SCH (10:00)
--- NOTE | 2017-08-10 11:29 | CP.PCM.PN ---
<Phong Simon - Last Filed: 08/10/17 11:23> Subjective - Date & Time of Evaluation Date of Evaluation: 08/10/17 Time of Evaluation: 10:15 - Subjective Subjective: Subjective: Patient seen and examined. HR elevated overnight 130s with no associated symptoms (no chest pain, no sob, no palpitations). Offers no new complaints at this time. Denies fever, chills, chest pain, shortness of breath, abdominal pain , vomiting, diarrhea, and urinary symptoms. Physical Examination: - Constitutional Appears: NAD - Head Exam Head Exam: ATRAUMATIC, NORMAL INSPECTION, NORMOCEPHALIC - Eye Exam Eye Exam: EOMI, Normal appearance, PERRL - ENT Exam ENT Exam: Mucous Membranes Moist, Normal Exam - Neck Exam Neck exam: Positive for: Normal Inspection - Respiratory Exam Respiratory Exam: NORMAL BREATHING PATTERN, CTA bilaterally - Cardiovascular Exam Cardiovascular Exam: +s1, +s2 - GI/Abdominal Exam GI & Abdominal Exam: no guarding, no rebound tenderness - Extremities Exam Extremities exam: Positive for: normal inspection - Neurological Exam Neurological exam: Alert, CN II-XII Intact, Normal Gait, Oriented x 3 Assessment and Plan: Patient is a 67 year old male with PMHx of Afib, Hep C, seizure, DVT, Diabetes who was admitted for evaluation and treatment for ED for evaluation and treatment of twin-umbilical abdominal pain. Tachycardia - patient transferred to telemetry - patients metoprolol increased to 50mg BID, started on digoxin - c/w xarelto and aspirin Suicidal Ideation - psychiatry consulted- appreciate considerations Abdominal Pain - CT of abdomen/pelvis: 1. Necrotic mass in the head of the pancreas with a diffuse and infiltrative component to adjacent lymph node chains extending to the katelyn hepatis. 2. Hepatic metastatic disease. 3. Intra-abdominal and pelvic ascites presumed to be malignant. - Hematology/oncology consulted- appreciate recommendations - GI consulted- appreciate recommendations- agree with Ir guided biospy of liver mets, if pt is proceeding with possible treatment in the future will eventually need outp colonoscopy and EGD - IR consulted for biopsy- appreciate recommendations-- biopsy performed on 08/06- awaiting pathology report - CEA and CA 19-9 elevated - IV morphine switched to PO IR morphine prn pain Constipation - c/w miralax and docusate Nausea - zofran 4mg IV q6 prn, QTc 449 Hyperglycemia; Hx of IDDM2 - blood glucoses reviewed, trended, and appreciated- elevated - c/w metformin - ACHS - hold home insulin - moderate carb controlled diet Hx of Seizure disorders - will continue with keppra 500 mg bid - Seizure and fall precaution Hx of CAD s/p CABG - continue with Lopressor - continue with Lipitor Hx of Atrial fibrillation - EKG- atrial fibrillation with RVR- rate control with lopessor - continue Lopressor - c/w xarelto and aspirin Hx of Peripheral neuropathy -continue with gabapentin Hx of Anxiety - continue xanax 0.5 mg bid prn Gait instability - PT eval- appreciate input- recommends subacute rehabilitation Prophylaxis - DVT prophylaxis-c/w xarelto and SCDs in patient - GI prophylaxis - on protonix Dispo: awaiting bed to become available at [facility] to establish transfer of care Patient case discussed with, and plan approved by attending physician, Dr. Tim. Objective - Vital Signs/Intake and Output Vital Signs (last 24 hours): Temp Pulse Resp BP Pulse Ox 97.7 F 101 H 18 135/81 94 L 08/10/17 08:00 08/10/17 09:21 08/10/17 08:00 08/10/17 09:21 08/10/17 08:00 - Medications Medications: Current Medications Alprazolam (Xanax) 0.5 mg PO DAILY [facility] PRN Reason: Protocol Last Admin: 08/10/17 09:19 Dose: 0.5 mg Aspirin (Ecotrin) 81 mg PO DAILY [facility] Last Admin: 08/10/17 09:19 Dose: 81 mg Atorvastatin Calcium (Lipitor) 40 mg PO DIN [facility] Last Admin: 08/09/17 16:27 Dose: 40 mg Digoxin (Digoxin) 0.125 mg PO 1400 [facility] Docusate Sodium (Colace Liquid) 100 mg PO TID PRN PRN Reason: Constipation Last Admin: 08/07/17 21:46 Dose: 100 mg Gabapentin (Neurontin) 300 mg PO TID [facility] PRN Reason: Protocol Last Admin: 08/10/17 09:20 Dose: 300 mg Insulin Human Lispro (Humalog High) 0 units SC ACHS [facility] PRN Reason: Protocol Last Admin: 08/10/17 08:09 Dose: 4 units Levetiracetam (Keppra) 500 mg PO Q12 [facility] Last Admin: 08/10/17 09:19 Dose: 500 mg Metformin HCl (Glucophage) 500 mg PO BID [facility] Last Admin: 08/10/17 09:19 Dose: 500 mg Metoprolol Tartrate (Lopressor) 5 mg IVP Q6 PRN PRN Reason: heart rate > 120 bpm Last Admin: 08/10/17 08:12 Dose: 5 mg Metoprolol Tartrate (Lopressor) 50 mg PO BID [facility] Last Admin: 08/10/17 09:29 Dose: Not Given Morphine Sulfate (Morphine Immediate Release Tab) 15 mg PO Q6H PRN PRN Reason: Pain, moderate (4-7) Last Admin: 08/10/17 09:20 Dose: 15 mg Ondansetron HCl (Zofran Inj) 4 mg IVP Q6H PRN PRN Reason: Nausea/Vomiting Last Admin: 08/07/17 02:12 Dose: 4 mg Pantoprazole Sodium (Protonix Ec Tab) 40 mg PO 0600 [facility] Last Admin: 08/10/17 05:24 Dose: 40 mg Polyethylene Glycol (Miralax) 17 gm PO BID PRN PRN Reason: Constipation Last Admin: 08/10/17 09:19 Dose: 17 gm Rivaroxaban (Xarelto) 15 mg PO DAILY [facility] PRN Reason: Protocol Last Admin: 08/10/17 09:20 Dose: 15 mg Thiamine HCl (Vitamin B1 Tab) 100 mg PO DAILY [facility] Last Admin: 08/10/17 09:21 Dose: 100 mg - Labs Labs: 08/10/17 05:30 08/10/17 05:30 PT 14.1 SECONDS (9.4-12.5) H 08/05/17 05:30 INR 1.22 (0.93-1.08) H 08/05/17 05:30 APTT 34.8 Seconds (25.1-36.5) 08/04/17 10:10 Assessment and Plan (1) Ascites Status: Acute (2) Intractable abdominal pain Status: Acute (3) Metastases to the liver Status: Acute (4) Pancreatic mass Status: Acute <Paul Tima - Last Filed: 08/10/17 13:42> Objective - Vital Signs/Intake and Output Vital Signs (last 24 hours): Temp Pulse Resp BP Pulse Ox 97.7 F 101 H 18 135/81 94 L 08/10/17 08:00 08/10/17 09:21 08/10/17 08:00 08/10/17 09:21 08/10/17 08:00 - Medications Medications: Current Medications Alprazolam (Xanax) 0.5 mg PO DAILY [facility] PRN Reason: Protocol Last Admin: 08/10/17 09:19 Dose: 0.5 mg Aspirin (Ecotrin) 81 mg PO DAILY [facility] Last Admin: 08/10/17 09:19 Dose: 81 mg Atorvastatin Calcium (Lipitor) 40 mg PO DIN [facility] Last Admin: 08/09/17 16:27 Dose: 40 mg Digoxin (Digoxin) 0.125 mg PO 1400 [facility] Last Admin: 08/10/17 13:05 Dose: 0.125 mg Docusate Sodium (Colace Liquid) 100 mg PO TID PRN PRN Reason: Constipation Last Admin: 08/10/17 11:38 Dose: 100 mg Gabapentin (Neurontin) 300 mg PO TID [facility] PRN Reason: Protocol Last Admin: 08/10/17 13:04 Dose: 300 mg Insulin Human Lispro (Humalog High) 0 units SC ACHS [facility] PRN Reason: Protocol Last Admin: 08/10/17 11:37 Dose: 4 units Levetiracetam (Keppra) 500 mg PO Q12 [facility] Last Admin: 08/10/17 09:19 Dose: 500 mg Metformin HCl (Glucophage) 500 mg PO BID [facility] Last Admin: 08/10/17 09:19 Dose: 500 mg Metoprolol Tartrate (Lopressor) 5 mg IVP Q6 PRN PRN Reason: heart rate > 120 bpm Last Admin: 08/10/17 08:12 Dose: 5 mg Metoprolol Tartrate (Lopressor) 50 mg PO BID [facility] Last Admin: 08/10/17 09:29 Dose: Not Given Morphine Sulfate (Morphine Immediate Release Tab) 15 mg PO Q6H PRN PRN Reason: Pain, moderate (4-7) Last Admin: 08/10/17 09:20 Dose: 15 mg Ondansetron HCl (Zofran Inj) 4 mg IVP Q6H PRN PRN Reason: Nausea/Vomiting Last Admin: 08/07/17 02:12 Dose: 4 mg Pantoprazole Sodium (Protonix Ec Tab) 40 mg PO 0600 [facility] Last Admin: 08/10/17 05:24 Dose: 40 mg Polyethylene Glycol (Miralax) 17 gm PO BID PRN PRN Reason: Constipation Last Admin: 08/10/17 09:19 Dose: 17 gm Rivaroxaban (Xarelto) 15 mg PO DAILY [facility] PRN Reason: Protocol Last Admin: 08/10/17 09:20 Dose: 15 mg Thiamine HCl (Vitamin B1 Tab) 100 mg PO DAILY [facility] Last Admin: 08/10/17 09:21 Dose: 100 mg - Labs Labs: 08/10/17 05:30 08/10/17 05:30 PT 14.1 SECONDS (9.4-12.5) H 08/05/17 05:30 INR 1.22 (0.93-1.08) H 08/05/17 05:30 APTT 34.8 Seconds (25.1-36.5) 08/04/17 10:10 Attending/Attestation - Attestation I have personally seen and examined this patient.: Yes I have fully participated in the care of the patient.: Yes I have reviewed all pertinent clinical information, including history, physical exam and plan: Yes Notes (Text): 08/10/17 13:41 attending note; Patient seen and examined with resident. Patient is a 67 year old male with PMhx of Afib, Hep C, diabetes, seizure, Diabetes who presents to the ED for evaluation and treatment of twin-umbilical abdominal pain. CT abdomen and pelvic showed necrotic pancreatic mass and liver metastases and ascites. Abdominal pain; on po morphine. GI evaluation appreciated. Status post liver biopsy. awaiting pathology results. CEA is mildly elevated. CA-19-9 is elevated. GI and oncology evaluation appreciated. A. fib; rate controlled. Continue metoprolol. Continue aspirin and xeralto. Episodes of tachycardia. Started on digoxin. metoprolol dosage increased. Monitor telemetry. diabetes; continue regular insulin sliding scale. PT evaluation appreciated. Subacute rehabilitation recommended. case discussed with Dr. Villalba at [facility]. Recommended to call rehabilitation unit at [facility]. case will be reviewed on Friday. Possible transfer to [facility] next week. Case discussed with high risk case manager for discharge planning.
[2017-08-10] MEDS: Digoxin 125 mcg (0.125 mg) Tab PO SCH (13:05)
--- NOTE | 2017-08-10 22:17 | CON ---
DATE: HISTORY OF PRESENT ILLNESS: The patient is a . A 67-year-old white male with history of depression and anxiety, no prior psychiatric admissions or suicide attempt. No current outpatient psychiatric treatment. He was admitted to the medical floor for evaluation of abdominal pain. Psychiatry was called because patient made one statement about possibility of hurting himself pending the results of pathology. Patient was tearful of being diagnosed of cancer. I reviewed patient's records, which indicated that he was not suicidal, that he was frustrated and upset about the situation, but he has lot to live for and he said something that was "very stupid and that I can mean." Patient reports that he does have a history of depression, but he is not really depressed at this time. He is hopeful about the future including his health. He does not want to be diagnosed with cancer, but he is. He would never harm himself because he enjoys and appreciate his three children and would never hurt in this way. 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 Patient reports anxiety here and there and he is getting Xanax for this, which has been beneficial. Patient reports that he was on the medical floor, he has been speaking well and his appetite has been "not great." He presented to be coherent and fairly reliable historian. He has not been problematic in the units. He denies hallucinations and does not appear to be responding to internal stimuli.. His responses are consistent and coherent and relevant to questioning. Insight and judgement are considered to be good. Vital signs and labs were reviewed by this provider. MEDICATIONS: Relevant psychiatric medications only include Xanax 0.5 mg p.o. daily. PSYCHIATRIC HISTORY: Patient reports prior psychiatric followup couple of years ago after patient had an open heart surgery. He is supposed to having flashbacks to the [place] war which he participated in. Patient reports that he has been treated currently with Xanax. However, does not recall he ever has been treated with and antidepressant. Patient received the Xanax from his primary care doctor. Patient denies any suicide attempt. Denies any current outpatient psychiatric treatment. SOCIAL HISTORY: The patient was born in [facility] and he was raised [place] because he was a chap. Patient has been ; however, he has been for 35 years after his 35-year-old at that time suddenly of a heat stroke. His children were [id number], less than2 years old and 4-1/2 years old at that time he had to get to raise by himself. Patient lives with his 40-year-old daughter Ashok and has good relationship with her as well as his sons Hector and Graeme. Patient reports that she helped him as he need help because he . She states she denies any drug or alcohol issues. 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 Patient then reports that he was in [place] war. IMPRESSION: Anxiety disorder by history, adjustment disorder with anxiety, rule out adjustment disorder with depression. RECOMMENDATIONS: Patient does not require one-to-one any longer. Patient has repeatedly and consistently indicated that he has no intention of harming himself and he made the statement out of frustration and anger because somebody in the ER told him that he was going to . Patient does not know who this individual was and that he was not sympathetic or professional and feels that this individual does not know anything about his history. Patient is scarred to . Does not want to . He does not plan on harming himself. He was diagnosed with cancer. He want to fight the cancer, if he does have it for the sake of his children and his future. At this time, the patient is psychiatrically cleared. He should continue with Xanax 0.5 mg daily. If patient should have negative diagnosis of cancer, I highly recommend that he is referred for his therapy as he might benefit from discussing his feelings and stresses with diagnosis. Please reconsult herein, if there are any acute changes in the patient's presentation. Paul Quarles MD
[2017-08-11] MEDS: Pantoprazole 40 mg EC Tab PO SCH (05:36)
[2017-08-11 06:55] LABS: BASO # 0.02 K/mm3 (0.0-2.0); BASO % 0.2 % (0.0-3.0); EOS # 0.1 (0.0-0.7); EOS % 0.7 % (1.5-5.0); GRAN # 7.7 (1.4-6.5); GRAN % 83.7 % (50.0-68.0); HEMOGLOBIN 11.3 g/dL (14.0-18.0); LYMPH # 0.7 (1.2-3.4); LYMPH % 8.1 % (22.0-35.0); MEAN CELL VOLUME 87.8 fl (80.0-105.0); MEAN CORPUSCULAR HGB CONC 30.8 g/dl (31.0-37.0); MEAN PLATELET VOLUME 10.5 fl (7.0-11.0); MONO # 0.7 (0.1-0.6); MONO % 7.3 % (1.0-6.0); RBC 4.18 10^6/uL (3.5-6.1); RED CELL DISTRIBUTION WIDTH 14.4 % (11.5-14.5); WHITE BLOOD COUNT 9.2 10^3/ul (4.5-11.0)
[2017-08-11 07:19] LABS: ALT/SGPT 19 U/L (7-56); AST/SGOT 21 U/L (17-59); BLOOD UREA NITROGEN 21 mg/dL (7-21); CALCIUM 8.7 mg/dL (8.4-10.5); GFR AFRICAN-AMERICAN > 60; GFR NON-AFRICAN AMERICAN > 60
[2017-08-11] MEDS: Metoprolol 1 mg/ml Inj IVP PRN ×3 (08:25→23:04)
[2017-08-11] MEDS: Insulin Lispro (HUMAlog) HIGH Coverage SC SCH ×4 (08:25→21:59)
[2017-08-11] MEDS: Morphine 15 mg Immediate Release Tab PO PRN ×3 (09:06→21:08)
[2017-08-11] MEDS: POLYETHYLENE GLYCOL 3350 17 GM/Dose PACKET PO PRN (09:07)
--- NOTE | 2017-08-11 13:08 | CP.PCM.PN ---
<Phong Simon - Last Filed: 08/11/17 12:59> Subjective - Date & Time of Evaluation Date of Evaluation: 08/11/17 Time of Evaluation: 09:15 - Subjective Subjective: Subjective: Patient seen and examined. Afib/Aflutter noted on monitor overnight. Intermittent elevated HR in 140s with no associated symptoms (no chest pain, no sob, no palpitations). Offers no new complaints at this time. Denies fever, chills, chest pain, shortness of breath, abdominal pain, vomiting, diarrhea, and urinary symptoms. Physical Examination: - Constitutional Appears: NAD - Head Exam Head Exam: ATRAUMATIC, NORMAL INSPECTION, NORMOCEPHALIC - Eye Exam Eye Exam: EOMI, Normal appearance, PERRL - ENT Exam ENT Exam: Mucous Membranes Moist, Normal Exam - Neck Exam Neck exam: Positive for: Normal Inspection - Respiratory Exam Respiratory Exam: NORMAL BREATHING PATTERN, CTA bilaterally - Cardiovascular Exam Cardiovascular Exam: +s1, +s2 - GI/Abdominal Exam GI & Abdominal Exam: no guarding, no rebound tenderness - Extremities Exam Extremities exam: Positive for: normal inspection - Neurological Exam Neurological exam: Alert, CN II-XII Intact, Normal Gait, Oriented x 3 Assessment and Plan: Patient is a 67 year old male with PMHx of Afib, Hep C, seizure, DVT, Diabetes who was admitted for evaluation and treatment for ED for evaluation and treatment of twin-umbilical abdominal pain. Tachycardia - c/w metoprolol increased to 50mg BID, c/w digoxin - c/w xarelto and aspirin Suicidal Ideation - psychiatry consulted- appreciate considerations, resolved- no need for 1:1, xanax ordered prn Abdominal Pain - CT of abdomen/pelvis: 1. Necrotic mass in the head of the pancreas with a diffuse and infiltrative component to adjacent lymph node chains extending to the katelyn hepatis. 2. Hepatic metastatic disease. 3. Intra-abdominal and pelvic ascites presumed to be malignant. - Hematology/oncology consulted- appreciate recommendations - GI consulted- appreciate recommendations- agree with Ir guided biospy of liver mets, if pt is proceeding with possible treatment in the future will eventually need outp colonoscopy and EGD - IR consulted for biopsy- appreciate recommendations-- biopsy performed on 08/06- awaiting pathology report - CEA and CA 19-9 elevated - IV morphine switched to PO IR morphine prn pain Constipation - c/w miralax and docusate Nausea - zofran 4mg IV q6 prn, QTc 449 Hyperglycemia; Hx of IDDM2 - blood glucoses reviewed, trended, and appreciated- elevated - c/w metformin - ACHS - hold home insulin - moderate carb controlled diet Hx of Seizure disorders - will continue with keppra 500 mg bid - Seizure and fall precaution Hx of CAD s/p CABG - continue with Lopressor - continue with Lipitor Hx of Atrial fibrillation - EKG- atrial fibrillation with RVR- rate control with lopessor - continue Lopressor PO taryn and IV prn - c/w xarelto and aspirin Hx of Peripheral neuropathy -continue with gabapentin Hx of Anxiety - continue xanax 0.5 mg bid prn Gait instability - PT eval- appreciate input- recommends subacute rehabilitation Prophylaxis - DVT prophylaxis-c/w xarelto and SCDs in patient - GI prophylaxis - on protonix Dispo: awaiting bed to become available at [facility] to establish transfer of care Patient case discussed with, and plan approved by attending physician, Dr. Tim. Objective - Vital Signs/Intake and Output Vital Signs (last 24 hours): Temp Pulse Resp BP Pulse Ox 97.4 F L 85 18 133/80 96 08/10/17 16:00 08/11/17 10:00 08/11/17 07:40 08/11/17 09:07 08/11/17 07:40 Intake and Output: 08/11/17 08/11/17 06:59 18:59 Intake Total 480 Balance 480 - Medications Medications: Current Medications Alprazolam (Xanax) 0.5 mg PO DAILY [facility] PRN Reason: Protocol Last Admin: 08/11/17 09:05 Dose: 0.5 mg Aspirin (Ecotrin) 81 mg PO DAILY [facility] Last Admin: 08/11/17 09:06 Dose: 81 mg Atorvastatin Calcium (Lipitor) 40 mg PO DIN [facility] Last Admin: 08/10/17 17:15 Dose: 40 mg Digoxin (Digoxin) 0.125 mg PO 1400 [facility] Last Admin: 08/10/17 13:05 Dose: 0.125 mg Docusate Sodium (Colace Liquid) 100 mg PO TID PRN PRN Reason: Constipation Last Admin: 08/11/17 09:07 Dose: 100 mg Gabapentin (Neurontin) 300 mg PO TID [facility] PRN Reason: Protocol Last Admin: 08/11/17 09:05 Dose: 300 mg Insulin Human Lispro (Humalog High) 0 units SC ACHS [facility] PRN Reason: Protocol Last Admin: 08/11/17 08:25 Dose: 2 units Levetiracetam (Keppra) 500 mg PO Q12 [facility] Last Admin: 08/11/17 09:05 Dose: 500 mg Metformin HCl (Glucophage) 500 mg PO BID [facility] Last Admin: 08/11/17 09:06 Dose: 500 mg Metoprolol Tartrate (Lopressor) 5 mg IVP Q6 PRN PRN Reason: heart rate > 120 bpm Last Admin: 08/11/17 08:25 Dose: 5 mg Metoprolol Tartrate (Lopressor) 50 mg PO BID [facility] Last Admin: 08/11/17 09:07 Dose: 50 mg Morphine Sulfate (Morphine Immediate Release Tab) 15 mg PO Q6H PRN PRN Reason: Pain, moderate (4-7) Last Admin: 08/11/17 09:06 Dose: 15 mg Ondansetron HCl (Zofran Inj) 4 mg IVP Q6H PRN PRN Reason: Nausea/Vomiting Last Admin: 08/10/17 21:12 Dose: 4 mg Pantoprazole Sodium (Protonix Ec Tab) 40 mg PO 0600 [facility] Last Admin: 08/11/17 05:36 Dose: 40 mg Polyethylene Glycol (Miralax) 17 gm PO BID PRN PRN Reason: Constipation Last Admin: 08/11/17 09:07 Dose: 17 gm Rivaroxaban (Xarelto) 15 mg PO DAILY [facility] PRN Reason: Protocol Last Admin: 08/11/17 09:06 Dose: 15 mg Thiamine HCl (Vitamin B1 Tab) 100 mg PO DAILY [facility] Last Admin: 08/11/17 09:06 Dose: 100 mg - Labs Labs: 08/11/17 05:45 08/11/17 05:45 PT 14.1 SECONDS (9.4-12.5) H 08/05/17 05:30 INR 1.22 (0.93-1.08) H 08/05/17 05:30 APTT 34.8 Seconds (25.1-36.5) 08/04/17 10:10 Assessment and Plan (1) Ascites Status: Acute (2) Intractable abdominal pain Status: Acute (3) Metastases to the liver Status: Acute (4) Pancreatic mass Status: Acute <Melinda Cyr B - Last Filed: 08/12/17 13:24> Objective - Vital Signs/Intake and Output Vital Signs (last 24 hours): Temp Pulse Resp BP Pulse Ox 97.4 F L 85 18 133/80 96 08/10/17 16:00 08/11/17 10:00 08/11/17 07:40 08/11/17 09:07 08/11/17 07:40 Intake and Output: 08/11/17 08/11/17 06:59 18:59 Intake Total 480 600 Balance 480 600 - Medications Medications: Current Medications Alprazolam (Xanax) 0.5 mg PO DAILY [facility] PRN Reason: Protocol Last Admin: 08/11/17 09:05 Dose: 0.5 mg Aspirin (Ecotrin) 81 mg PO DAILY [facility] Last Admin: 08/11/17 09:06 Dose: 81 mg Atorvastatin Calcium (Lipitor) 40 mg PO DIN [facility] Last Admin: 08/10/17 17:15 Dose: 40 mg Digoxin (Digoxin) 0.125 mg PO 1400 [facility] Last Admin: 08/11/17 13:20 Dose: 0.125 mg Docusate Sodium (Colace Liquid) 100 mg PO TID PRN PRN Reason: Constipation Last Admin: 08/11/17 09:07 Dose: 100 mg Gabapentin (Neurontin) 300 mg PO TID [facility] PRN Reason: Protocol Last Admin: 08/11/17 13:20 Dose: 300 mg Insulin Human Lispro (Humalog High) 0 units SC ACHS [facility] PRN Reason: Protocol Last Admin: 08/11/17 13:20 Dose: 4 units Levetiracetam (Keppra) 500 mg PO Q12 [facility] Last Admin: 08/11/17 09:05 Dose: 500 mg Metformin HCl (Glucophage) 500 mg PO BID [facility] Last Admin: 08/11/17 09:06 Dose: 500 mg Metoprolol Tartrate (Lopressor) 5 mg IVP Q6 PRN PRN Reason: heart rate > 120 bpm Last Admin: 08/11/17 08:25 Dose: 5 mg Metoprolol Tartrate (Lopressor) 50 mg PO BID [facility] Last Admin: 08/11/17 09:07 Dose: 50 mg Morphine Sulfate (Morphine Immediate Release Tab) 15 mg PO Q6H PRN PRN Reason: Pain, moderate (4-7) Last Admin: 08/11/17 15:20 Dose: 15 mg Ondansetron HCl (Zofran Inj) 4 mg IVP Q6H PRN PRN Reason: Nausea/Vomiting Last Admin: 08/10/17 21:12 Dose: 4 mg Pantoprazole Sodium (Protonix Ec Tab) 40 mg PO 0600 [facility] Last Admin: 08/11/17 05:36 Dose: 40 mg Polyethylene Glycol (Miralax) 17 gm PO BID PRN PRN Reason: Constipation Last Admin: 08/11/17 09:07 Dose: 17 gm Rivaroxaban (Xarelto) 15 mg PO DAILY [facility] PRN Reason: Protocol Last Admin: 08/11/17 09:06 Dose: 15 mg Thiamine HCl (Vitamin B1 Tab) 100 mg PO DAILY [facility] Last Admin: 08/11/17 09:06 Dose: 100 mg - Labs Labs: 08/11/17 05:45 08/11/17 05:45 PT 14.1 SECONDS (9.4-12.5) H 08/05/17 05:30 INR 1.22 (0.93-1.08) H 08/05/17 05:30 APTT 34.8 Seconds (25.1-36.5) 08/04/17 10:10 Attending/Attestation - Attestation I have personally seen and examined this patient.: Yes I have fully participated in the care of the patient.: Yes I have reviewed all pertinent clinical information, including history, physical exam and plan: Yes Notes (Text): I have seen and examined the patient with the resident. Agree with the above note with the following additions/ exceptions: Briefly this is 67 year old male with history of Afib, Hep C (known and untreated), diabetes, seizure, Diabetes who presents to the ED for evaluation and treatment of twin-umbilical abdominal pain. CT abdomen and pelvic showed necrotic pancreatic mass and liver metastases and ascites. Patient is s/p liver biopsy. Awaiting path results. CEA and CA 19-9 elevated. He is on morphine for abdominal pain. He also has rate controlled atrial fibrillation on aspirin, xeralto and metoprolol. GREG recommended by SIOBHAN garcia. Upon discharge patient will follow up with Dr Still. Dr Melinda Cyr
[2017-08-11] MEDS: Digoxin 125 mcg (0.125 mg) Tab PO SCH (13:20)
[2017-08-12] MEDS: Pantoprazole 40 mg EC Tab PO SCH (05:32)
[2017-08-12] MEDS: Metoprolol 1 mg/ml Inj IVP PRN (08:45)
[2017-08-12] MEDS: Insulin Lispro (HUMAlog) HIGH Coverage SC SCH ×4 (08:46→22:00)
[2017-08-12] MEDS: Morphine 15 mg Immediate Release Tab PO PRN (08:56)
--- NOTE | 2017-08-12 11:54 | CP.PCM.PN ---
<Phong Simon - Last Filed: 08/12/17 11:50> Subjective - Date & Time of Evaluation Date of Evaluation: 08/12/17 Time of Evaluation: 10:45 - Subjective Subjective: Subjective: Patient seen and examined. Afib/Aflutter with RVR noted. Intermittent elevated HR in 130s- 140s with no associated symptoms (no chest pain, no sob, no palpitations). Offers no new complaints at this time. Denies fever, chills, chest pain, shortness of breath, abdominal pain, vomiting, diarrhea, and urinary symptoms. Physical Examination: - Constitutional Appears: NAD - Head Exam Head Exam: ATRAUMATIC, NORMAL INSPECTION, NORMOCEPHALIC - Eye Exam Eye Exam: EOMI, Normal appearance, PERRL - ENT Exam ENT Exam: Mucous Membranes Moist, Normal Exam - Neck Exam Neck exam: Positive for: Normal Inspection - Respiratory Exam Respiratory Exam: NORMAL BREATHING PATTERN, CTA bilaterally - Cardiovascular Exam Cardiovascular Exam: +s1, +s2 - GI/Abdominal Exam GI & Abdominal Exam: no guarding, no rebound tenderness - Extremities Exam Extremities exam: Positive for: normal inspection - Neurological Exam Neurological exam: Alert, CN II-XII Intact, Normal Gait, Oriented x 3 Assessment and Plan: Patient is a 67 year old male with PMHx of Afib, Hep C, seizure, DVT, Diabetes who was admitted for evaluation and treatment for ED for evaluation and treatment of twin-umbilical abdominal pain. Tachycardia - c/w metoprolol 50mg BID, c/w digoxin - patient started on cardizem 30mg 1 tablet PO daily - c/w xarelto and aspirin Suicidal Ideation - psychiatry consulted- appreciate considerations, resolved- no need for 1:1, xanax ordered prn Abdominal Pain - CT of abdomen/pelvis: 1. Necrotic mass in the head of the pancreas with a diffuse and infiltrative component to adjacent lymph node chains extending to the katelyn hepatis. 2. Hepatic metastatic disease. 3. Intra-abdominal and pelvic ascites presumed to be malignant. - Hematology/oncology consulted- appreciate recommendations - GI consulted- appreciate recommendations- agree with Ir guided biospy of liver mets, if pt is proceeding with possible treatment in the future will eventually need outp colonoscopy and EGD - IR consulted for biopsy- appreciate recommendations-- biopsy performed on 08/06- awaiting pathology report - CEA and CA 19-9 elevated - IV morphine switched to PO IR morphine prn pain Constipation - c/w miralax and docusate Nausea - zofran 4mg IV q6 prn, QTc 449 Hyperglycemia; Hx of IDDM2 - blood glucoses reviewed, trended, and appreciated- elevated - c/w metformin - ACHS - hold home insulin - moderate carb controlled diet Hx of Seizure disorders - will continue with keppra 500 mg bid - Seizure and fall precaution Hx of CAD s/p CABG - continue with Lopressor - continue with Lipitor Hx of Atrial fibrillation - EKG- atrial fibrillation with RVR- rate control with lopessor - continue Lopressor PO taryn and IV prn - c/w xarelto and aspirin Hx of Peripheral neuropathy -continue with gabapentin Hx of Anxiety - continue xanax 0.5 mg bid prn Gait instability - PT eval- appreciate input- recommends subacute rehabilitation Prophylaxis - DVT prophylaxis-c/w xarelto and SCDs in patient - GI prophylaxis - on protonix Dispo: awaiting bed to become available at [facility] to establish transfer of care Patient case discussed with, and plan approved by attending physician, Dr. Cyr. Objective - Vital Signs/Intake and Output Vital Signs (last 24 hours): Temp Pulse Resp BP Pulse Ox 98 F 141 H 17 140/94 H 95 08/12/17 07:59 08/12/17 10:16 08/12/17 07:59 08/12/17 10:16 08/12/17 07:59 Intake and Output: 08/12/17 08/12/17 06:59 18:59 Intake Total 540 Output Total 0 Balance 540 - Medications Medications: Current Medications Alprazolam (Xanax) 0.5 mg PO DAILY [facility] PRN Reason: Protocol Last Admin: 08/12/17 10:15 Dose: 0.5 mg Aspirin (Ecotrin) 81 mg PO DAILY [facility] Last Admin: 08/12/17 10:15 Dose: 81 mg Atorvastatin Calcium (Lipitor) 40 mg PO DIN [facility] Last Admin: 08/11/17 17:21 Dose: 40 mg Digoxin (Digoxin) 0.125 mg PO 1400 [facility] Last Admin: 08/11/17 13:20 Dose: 0.125 mg Diltiazem HCl (Cardizem) 30 mg PO DAILY [facility] Docusate Sodium (Colace Liquid) 100 mg PO TID PRN PRN Reason: Constipation Last Admin: 08/11/17 09:07 Dose: 100 mg Gabapentin (Neurontin) 300 mg PO TID [facility] PRN Reason: Protocol Last Admin: 08/12/17 10:15 Dose: 300 mg Insulin Human Lispro (Humalog High) 0 units SC ACHS [facility] PRN Reason: Protocol Last Admin: 08/12/17 08:46 Dose: 4 units Levetiracetam (Keppra) 500 mg PO Q12 [facility] Last Admin: 08/12/17 10:15 Dose: 500 mg Metformin HCl (Glucophage) 500 mg PO BID [facility] Last Admin: 08/12/17 10:15 Dose: 500 mg Metoprolol Tartrate (Lopressor) 5 mg IVP Q6 PRN PRN Reason: heart rate > 120 bpm Last Admin: 08/12/17 08:45 Dose: 5 mg Metoprolol Tartrate (Lopressor) 50 mg PO BID [facility] Last Admin: 08/12/17 10:16 Dose: 50 mg Morphine Sulfate (Morphine Immediate Release Tab) 15 mg PO Q6H PRN PRN Reason: Pain, moderate (4-7) Last Admin: 08/12/17 08:56 Dose: 15 mg Ondansetron HCl (Zofran Inj) 4 mg IVP Q6H PRN PRN Reason: Nausea/Vomiting Last Admin: 08/12/17 10:22 Dose: 4 mg Pantoprazole Sodium (Protonix Ec Tab) 40 mg PO 0600 [facility] Last Admin: 08/12/17 05:32 Dose: 40 mg Polyethylene Glycol (Miralax) 17 gm PO BID PRN PRN Reason: Constipation Last Admin: 08/11/17 09:07 Dose: 17 gm Rivaroxaban (Xarelto) 15 mg PO DAILY [facility] PRN Reason: Protocol Last Admin: 08/12/17 10:16 Dose: 15 mg Thiamine HCl (Vitamin B1 Tab) 100 mg PO DAILY [facility] Last Admin: 08/12/17 10:16 Dose: 100 mg - Labs Labs: 08/11/17 05:45 08/11/17 05:45 PT 14.1 SECONDS (9.4-12.5) H 08/05/17 05:30 INR 1.22 (0.93-1.08) H 08/05/17 05:30 APTT 34.8 Seconds (25.1-36.5) 08/04/17 10:10 Assessment and Plan (1) Ascites Status: Acute (2) Intractable abdominal pain Status: Acute (3) Metastases to the liver Status: Acute (4) Pancreatic mass Status: Acute <Melinda Cyr - Last Filed: 08/12/17 14:15> Objective - Vital Signs/Intake and Output Vital Signs (last 24 hours): Temp Pulse Resp BP Pulse Ox 98 F 111 H 17 140/94 H 95 08/12/17 07:59 08/12/17 13:27 08/12/17 07:59 08/12/17 10:16 08/12/17 07:59 Intake and Output: 08/12/17 08/12/17 06:59 18:59 Intake Total 540 Output Total 0 Balance 540 - Medications Medications: Current Medications Alprazolam (Xanax) 0.5 mg PO DAILY [facility] PRN Reason: Protocol Last Admin: 08/12/17 10:15 Dose: 0.5 mg Aspirin (Ecotrin) 81 mg PO DAILY [facility] Last Admin: 08/12/17 10:15 Dose: 81 mg Atorvastatin Calcium (Lipitor) 40 mg PO DIN [facility] Last Admin: 08/11/17 17:21 Dose: 40 mg Digoxin (Digoxin) 0.125 mg PO 1400 [facility] Last Admin: 08/12/17 13:27 Dose: 0.125 mg Diltiazem HCl (Cardizem) 30 mg PO DAILY [facility] Last Admin: 08/12/17 13:27 Dose: 30 mg Docusate Sodium (Colace Liquid) 100 mg PO TID PRN PRN Reason: Constipation Last Admin: 08/11/17 09:07 Dose: 100 mg Gabapentin (Neurontin) 300 mg PO TID [facility] PRN Reason: Protocol Last Admin: 08/12/17 13:27 Dose: 300 mg Insulin Human Lispro (Humalog High) 0 units SC ACHS [facility] PRN Reason: Protocol Last Admin: 08/12/17 13:28 Dose: 4 units Levetiracetam (Keppra) 500 mg PO Q12 [facility] Last Admin: 08/12/17 10:15 Dose: 500 mg Metformin HCl (Glucophage) 500 mg PO BID [facility] Last Admin: 08/12/17 10:15 Dose: 500 mg Metoprolol Tartrate (Lopressor) 5 mg IVP Q6 PRN PRN Reason: heart rate > 120 bpm Last Admin: 08/12/17 08:45 Dose: 5 mg Metoprolol Tartrate (Lopressor) 50 mg PO BID [facility] Last Admin: 08/12/17 10:16 Dose: 50 mg Morphine Sulfate (Morphine Immediate Release Tab) 15 mg PO Q6H PRN PRN Reason: Pain, moderate (4-7) Last Admin: 08/12/17 08:56 Dose: 15 mg Ondansetron HCl (Zofran Inj) 4 mg IVP Q6H PRN PRN Reason: Nausea/Vomiting Last Admin: 08/12/17 10:22 Dose: 4 mg Pantoprazole Sodium (Protonix Ec Tab) 40 mg PO 0600 [facility] Last Admin: 08/12/17 05:32 Dose: 40 mg Polyethylene Glycol (Miralax) 17 gm PO BID PRN PRN Reason: Constipation Last Admin: 08/11/17 09:07 Dose: 17 gm Rivaroxaban (Xarelto) 15 mg PO DAILY [facility] PRN Reason: Protocol Last Admin: 08/12/17 10:16 Dose: 15 mg Thiamine HCl (Vitamin B1 Tab) 100 mg PO DAILY [facility] Last Admin: 08/12/17 10:16 Dose: 100 mg - Labs Labs: 08/12/17 12:10 08/12/17 12:10 PT 14.1 SECONDS (9.4-12.5) H 08/05/17 05:30 INR 1.22 (0.93-1.08) H 08/05/17 05:30 APTT 34.8 Seconds (25.1-36.5) 08/04/17 10:10 Attending/Attestation - Attestation I have personally seen and examined this patient.: Yes I have fully participated in the care of the patient.: Yes I have reviewed all pertinent clinical information, including history, physical exam and plan: Yes Notes (Text): I have seen and examined the patient with the resident. Agree with the above note with the following additions/ exceptions: Briefly this is 67 year old male with history of Afib, Hep C (known and untreated), diabetes, seizure, Diabetes who presents to the ED for evaluation and treatment of twin-umbilical abdominal pain. CT abdomen and pelvic showed necrotic pancreatic mass and liver metastases and ascites. Patient is s/p liver biopsy. Awaiting path results. Result is expected by tomorrow. CEA and CA 19-9 elevated. He is on morphine for abdominal pain. He also has rate controlled atrial fibrillation on aspirin, xeralto and metoprolol. Start cardizem for HR control. GREG recommended by PT radha. Upon discharge patient will follow up with Dr Still. Dr Melinda Cyr
[2017-08-12 12:19] LABS: BASO # 0.01 K/mm3 (0.0-2.0); BASO % 0.1 % (0.0-3.0); EOS # 0.1 (0.0-0.7); EOS % 0.5 % (1.5-5.0); GRAN # 8.37 (1.4-6.5); GRAN % 83.9 % (50.0-68.0); HEMOGLOBIN 11.7 g/dL (14.0-18.0); LYMPH # 0.9 (1.2-3.4); LYMPH % 8.6 % (22.0-35.0); MEAN CELL VOLUME 87.5 fl (80.0-105.0); MEAN CORPUSCULAR HEMOGLOBIN 27.1 pg (25.0-35.0); MEAN PLATELET VOLUME 10.2 fl (7.0-11.0); MONO # 0.7 (0.1-0.6); MONO % 6.9 % (1.0-6.0); RBC 4.32 10^6/uL (3.5-6.1); RED CELL DISTRIBUTION WIDTH 14.4 % (11.5-14.5)
[2017-08-12 12:24] LABS: ALB/GLOB RATIO 1.2 (1.1-1.8); ALBUMIN 3.2 g/dL (3.0-4.8); ALT/SGPT 17 U/L (7-56); AST/SGOT 19 U/L (17-59); BLOOD UREA NITROGEN 21 mg/dL (7-21); CALCIUM 8.9 mg/dL (8.4-10.5); GFR AFRICAN-AMERICAN > 60; GFR NON-AFRICAN AMERICAN > 60
[2017-08-12] MEDS: Digoxin 125 mcg (0.125 mg) Tab PO SCH (13:27)
[2017-08-13] MEDS: Pantoprazole 40 mg EC Tab PO SCH (05:53)
[2017-08-13 06:24] LABS: BASO # 0.02 K/mm3 (0.0-2.0); BASO % 0.2 % (0.0-3.0); EOS # 0.1 (0.0-0.7); EOS % 0.7 % (1.5-5.0); GRAN # 8.32 (1.4-6.5); GRAN % 80.7 % (50.0-68.0); HEMOGLOBIN 12.5 g/dL (14.0-18.0); LYMPH % 9.8 % (22.0-35.0); MEAN CELL VOLUME 88.5 fl (80.0-105.0); MEAN CORPUSCULAR HEMOGLOBIN 27.2 pg (25.0-35.0); MEAN CORPUSCULAR HGB CONC 30.8 g/dl (31.0-37.0); MEAN PLATELET VOLUME 10.6 fl (7.0-11.0); MONO # 0.9 (0.1-0.6); MONO % 8.6 % (1.0-6.0); RBC 4.59 10^6/uL (3.5-6.1); RED CELL DISTRIBUTION WIDTH 14.4 % (11.5-14.5); WHITE BLOOD COUNT 10.3 10^3/ul (4.5-11.0)
[2017-08-13 06:40] LABS: ALB/GLOB RATIO 1.1 (1.1-1.8); ALBUMIN 3.2 g/dL (3.0-4.8); ALT/SGPT 14 U/L (7-56); AST/SGOT 23 U/L (17-59); BLOOD UREA NITROGEN 23 mg/dL (7-21); GFR AFRICAN-AMERICAN > 60; GFR NON-AFRICAN AMERICAN > 60
[2017-08-13] MEDS: Insulin Lispro (HUMAlog) HIGH Coverage SC SCH ×4 (09:21→21:40)
--- NOTE | 2017-08-13 11:59 | CP.PCM.PN ---
<Phong Simon - Last Filed: 08/13/17 11:52> Subjective - Date & Time of Evaluation Date of Evaluation: 08/13/17 Time of Evaluation: 08:15 - Subjective Subjective: Subjective: Patient seen and examined. No acute events overnight. Admits to decreased appetite. Denies fever, chills, chest pain, shortness of breath, abdominal pain , vomiting, diarrhea, and urinary symptoms. Physical Examination: - Constitutional Appears: NAD - Head Exam Head Exam: ATRAUMATIC, NORMAL INSPECTION, NORMOCEPHALIC - Eye Exam Eye Exam: EOMI, Normal appearance, PERRL - ENT Exam ENT Exam: Mucous Membranes Moist, Normal Exam - Neck Exam Neck exam: Positive for: Normal Inspection - Respiratory Exam Respiratory Exam: NORMAL BREATHING PATTERN, CTA bilaterally - Cardiovascular Exam Cardiovascular Exam: +s1, +s2 - GI/Abdominal Exam GI & Abdominal Exam: no guarding, no rebound tenderness - Extremities Exam Extremities exam: Positive for: normal inspection - Neurological Exam Neurological exam: Alert, CN II-XII Intact, Normal Gait, Oriented x 3 Assessment and Plan: Patient is a 67 year old male with PMHx of Afib, Hep C, seizure, DVT, Diabetes who was admitted for evaluation and treatment for ED for evaluation and treatment of twin-umbilical abdominal pain. Tachycardia - c/w metoprolol 50mg BID, c/w digoxin - c/w cardizem 30mg 1 tablet PO daily - c/w xarelto and aspirin Suicidal Ideation - psychiatry consulted- appreciate considerations, resolved- no need for 1:1, xanax ordered prn Abdominal Pain - CT of abdomen/pelvis: 1. Necrotic mass in the head of the pancreas with a diffuse and infiltrative component to adjacent lymph node chains extending to the katelyn hepatis. 2. Hepatic metastatic disease. 3. Intra-abdominal and pelvic ascites presumed to be malignant. - Hematology/oncology consulted- appreciate recommendations - GI consulted- appreciate recommendations- agree with Ir guided biospy of liver mets, if pt is proceeding with possible treatment in the future will eventually need outp colonoscopy and EGD - IR consulted for biopsy- appreciate recommendations-- biopsy performed on 08/06- awaiting pathology report - CEA and CA 19-9 elevated - IV morphine switched to PO IR morphine prn pain Decreased Appetite - patient education provided on proper nutrient intake - glucerna ordered - encouraged increased PO intake Constipation - c/w miralax and docusate Nausea - zofran 4mg IV q6 prn, QTc 449 Hyperglycemia; Hx of IDDM2 - blood glucoses reviewed, trended, and appreciated- elevated - c/w metformin - ACHS - hold home insulin - moderate carb controlled diet Hx of Seizure disorders - will continue with keppra 500 mg bid - Seizure and fall precaution Hx of CAD s/p CABG - continue with Lopressor - continue with Lipitor Hx of Atrial fibrillation - EKG- atrial fibrillation with RVR- rate control with lopessor and cardizem - continue Lopressor PO taryn and IV prn - c/w xarelto and aspirin Hx of Peripheral neuropathy -continue with gabapentin Hx of Anxiety - continue xanax 0.5 mg bid prn Gait instability - PT eval- appreciate input- recommends subacute rehabilitation Prophylaxis - DVT prophylaxis-c/w xarelto and SCDs in patient - GI prophylaxis - on protonix Dispo: patient not eligable for [facility], only for LTC and hospice. Awaiting path report. Patient case discussed with, and plan approved by attending physician, Dr. Cyr. Objective - Vital Signs/Intake and Output Vital Signs (last 24 hours): Temp Pulse Resp BP Pulse Ox 98.3 F 103 H 20 128/87 98 08/13/17 06:00 08/13/17 09:21 08/13/17 06:00 08/13/17 09:21 08/13/17 06:00 Intake and Output: 08/13/17 08/13/17 06:59 18:59 Intake Total 120 Balance 120 - Medications Medications: Current Medications Alprazolam (Xanax) 0.5 mg PO DAILY [facility] PRN Reason: Protocol Last Admin: 08/13/17 09:22 Dose: 0.5 mg Aspirin (Ecotrin) 81 mg PO DAILY [facility] Last Admin: 08/13/17 09:22 Dose: 81 mg Atorvastatin Calcium (Lipitor) 40 mg PO DIN [facility] Last Admin: 08/12/17 18:06 Dose: 40 mg Digoxin (Digoxin) 0.125 mg PO 1400 [facility] Last Admin: 08/12/17 13:27 Dose: 0.125 mg Diltiazem HCl (Cardizem) 30 mg PO DAILY [facility] Last Admin: 08/13/17 09:21 Dose: 30 mg Docusate Sodium (Colace Liquid) 100 mg PO TID PRN PRN Reason: Constipation Last Admin: 08/11/17 09:07 Dose: 100 mg Gabapentin (Neurontin) 300 mg PO TID [facility] PRN Reason: Protocol Last Admin: 08/13/17 09:22 Dose: 300 mg Insulin Human Lispro (Humalog High) 0 units SC ACHS [facility] PRN Reason: Protocol Last Admin: 08/13/17 09:21 Dose: 4 units Levetiracetam (Keppra) 500 mg PO Q12 [facility] Last Admin: 08/13/17 09:21 Dose: 500 mg Metformin HCl (Glucophage) 500 mg PO BID [facility] Last Admin: 08/13/17 09:21 Dose: 500 mg Metoprolol Tartrate (Lopressor) 5 mg IVP Q6 PRN PRN Reason: heart rate > 120 bpm Last Admin: 08/12/17 08:45 Dose: 5 mg Metoprolol Tartrate (Lopressor) 50 mg PO BID [facility] Last Admin: 08/13/17 09:21 Dose: 50 mg Morphine Sulfate (Morphine Immediate Release Tab) 15 mg PO Q6H PRN PRN Reason: Pain, moderate (4-7) Last Admin: 08/12/17 08:56 Dose: 15 mg Ondansetron HCl (Zofran Inj) 4 mg IVP Q6H PRN PRN Reason: Nausea/Vomiting Last Admin: 08/12/17 10:22 Dose: 4 mg Pantoprazole Sodium (Protonix Ec Tab) 40 mg PO 0600 [facility] Last Admin: 08/13/17 05:53 Dose: 40 mg Polyethylene Glycol (Miralax) 17 gm PO BID PRN PRN Reason: Constipation Last Admin: 08/11/17 09:07 Dose: 17 gm Rivaroxaban (Xarelto) 15 mg PO DAILY [facility] PRN Reason: Protocol Last Admin: 08/13/17 09:21 Dose: 15 mg Thiamine HCl (Vitamin B1 Tab) 100 mg PO DAILY [facility] Last Admin: 08/13/17 09:21 Dose: 100 mg - Labs Labs: 08/13/17 06:00 08/13/17 06:00 PT 14.1 SECONDS (9.4-12.5) H 08/05/17 05:30 INR 1.22 (0.93-1.08) H 08/05/17 05:30 APTT 34.8 Seconds (25.1-36.5) 08/04/17 10:10 Assessment and Plan (1) Ascites Status: Acute (2) Intractable abdominal pain Status: Acute (3) Metastases to the liver Status: Acute (4) Pancreatic mass Status: Acute <KlarissaMelinda Morales - Last Filed: 08/13/17 14:39> Objective - Vital Signs/Intake and Output Vital Signs (last 24 hours): Temp Pulse Resp BP Pulse Ox 98.3 F 110 H 20 128/87 98 08/13/17 06:00 08/13/17 10:00 08/13/17 06:00 08/13/17 09:21 08/13/17 06:00 Intake and Output: 08/13/17 08/13/17 06:59 18:59 Intake Total 480 Output Total 350 Balance 130 - Medications Medications: Current Medications Alprazolam (Xanax) 0.5 mg PO DAILY [facility] PRN Reason: Protocol Last Admin: 08/13/17 09:22 Dose: 0.5 mg Aspirin (Ecotrin) 81 mg PO DAILY [facility] Last Admin: 08/13/17 09:22 Dose: 81 mg Atorvastatin Calcium (Lipitor) 40 mg PO DIN [facility] Last Admin: 08/12/17 18:06 Dose: 40 mg Digoxin (Digoxin) 0.125 mg PO 1400 [facility] Last Admin: 08/13/17 13:57 Dose: 0.125 mg Diltiazem HCl (Cardizem) 30 mg PO DAILY [facility] Last Admin: 08/13/17 09:21 Dose: 30 mg Docusate Sodium (Colace Liquid) 100 mg PO TID PRN PRN Reason: Constipation Last Admin: 08/11/17 09:07 Dose: 100 mg Gabapentin (Neurontin) 300 mg PO TID [facility] PRN Reason: Protocol Last Admin: 08/13/17 13:58 Dose: 300 mg Insulin Human Lispro (Humalog High) 0 units SC ACHS [facility] PRN Reason: Protocol Last Admin: 08/13/17 13:57 Dose: 7 units Levetiracetam (Keppra) 500 mg PO Q12 [facility] Last Admin: 08/13/17 09:21 Dose: 500 mg Metformin HCl (Glucophage) 500 mg PO BID [facility] Last Admin: 08/13/17 09:21 Dose: 500 mg Metoprolol Tartrate (Lopressor) 5 mg IVP Q6 PRN PRN Reason: heart rate > 120 bpm Last Admin: 08/12/17 08:45 Dose: 5 mg Metoprolol Tartrate (Lopressor) 50 mg PO BID [facility] Last Admin: 08/13/17 09:21 Dose: 50 mg Morphine Sulfate (Morphine Immediate Release Tab) 15 mg PO Q6H PRN PRN Reason: Pain, moderate (4-7) Last Admin: 08/12/17 08:56 Dose: 15 mg Ondansetron HCl (Zofran Inj) 4 mg IVP Q6H PRN PRN Reason: Nausea/Vomiting Last Admin: 08/12/17 10:22 Dose: 4 mg Pantoprazole Sodium (Protonix Ec Tab) 40 mg PO 0600 [facility] Last Admin: 08/13/17 05:53 Dose: 40 mg Polyethylene Glycol (Miralax) 17 gm PO BID PRN PRN Reason: Constipation Last Admin: 08/11/17 09:07 Dose: 17 gm Rivaroxaban (Xarelto) 15 mg PO DAILY [facility] PRN Reason: Protocol Last Admin: 08/13/17 09:21 Dose: 15 mg Thiamine HCl (Vitamin B1 Tab) 100 mg PO DAILY [facility] Last Admin: 08/13/17 09:21 Dose: 100 mg - Labs Labs: 08/13/17 06:00 08/13/17 06:00 PT 14.1 SECONDS (9.4-12.5) H 08/05/17 05:30 INR 1.22 (0.93-1.08) H 08/05/17 05:30 APTT 34.8 Seconds (25.1-36.5) 08/04/17 10:10 Attending/Attestation - Attestation I have personally seen and examined this patient.: Yes I have fully participated in the care of the patient.: Yes I have reviewed all pertinent clinical information, including history, physical exam and plan: Yes Notes (Text): I have seen and examined the patient with the resident. Agree with the above note with the following additions/ exceptions: Briefly this is 67 year old male with history of Afib, Hep C (known and untreated), diabetes, seizure, Diabetes who presents to the ED for evaluation and treatment of twin-umbilical abdominal pain. CT abdomen and pelvic showed necrotic pancreatic mass and liver metastases and ascites. Patient is s/p liver biopsy. Awaiting path results. CEA and CA 19-9 elevated. Taper morphine for abdominal pain. He also has atrial fibrillation on aspirin, xeralto, cardizem and metoprolol. GREG recommended by PT radha. Upon discharge patient will follow up with Dr Still. Dr Melinda Cyr
--- NOTE | 2017-08-13 12:26 | PN ---
DATE: SUBJECTIVE: Hector is a 67-year-old gentleman, who was admitted to the hospital with abdominal pain, nausea and vomiting. The patient was found to have pancreatic head mass, ascites, liver mass, pulmonary nodules and intraabdominal adenopathy. The pancreatic mass was close to the hepatic artery and there was a possible invasion into the hepatic artery. The biopsy of the liver mass is performed and the preliminary result is adenocarcinoma. The pathology is sent to integrated lab for further staining and differentiating between the cholangiocarcinoma and pancreatic adenocarcinoma. The final stain and pathology is pending. The patient is generally stable and is clinically improving. The patient has diagnosis of hepatitis C, seizure disorder, atrial fibrillation and has been taking anticoagulation with Xarelto. The patient is generally doing well and there is no significant change on the physical examination. 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 The final staining and pathology diagnosis are pending. Various treatment options are palliative chemotherapy with [place] base regimen or newer regimen with immunotherapy or supportive care only. Risks and benefits of each options were discussed in great detail with the patient. We can also do MSI testing, microsatellite instability testing on the tumor and if it is high, we may consider treatment with various immunotherapy like Keytruda. The patient will also need a venous access if he decides to go on the route of palliative chemotherapy. Discussed with the service. Arlyn Bess MD JESSICA
[2017-08-13] MEDS: Digoxin 125 mcg (0.125 mg) Tab PO SCH (13:57)
[2017-08-13 14:00] VITALS: PULSE 68
[2017-08-13] MEDS ORDERED: Morphine 15 mg Immediate Release Tab PO PRN ×2 (14:36→14:39)
[2017-08-13 18:00] VITALS: O2SAT 96
[2017-08-13] MEDS: Metoprolol 1 mg/ml Inj IVP PRN (23:16)
[2017-08-14] MEDS ORDERED: Metoprolol 1 mg/ml Inj IVP STA (03:54)
[2017-08-14] MEDS: Pantoprazole 40 mg EC Tab PO SCH (05:07)
[2017-08-14 06:30] LABS: BASO # 0.01 K/mm3 (0.0-2.0); BASO % 0.1 % (0.0-3.0); EOS # 0.1 (0.0-0.7); EOS % 0.6 % (1.5-5.0); GRAN # 7.69 (1.4-6.5); GRAN % 82.5 % (50.0-68.0); HEMOGLOBIN 11.8 g/dL (14.0-18.0); LYMPH # 0.8 (1.2-3.4); LYMPH % 8.1 % (22.0-35.0); MEAN CELL VOLUME 87.2 fl (80.0-105.0); MEAN CORPUSCULAR HEMOGLOBIN 27.4 pg (25.0-35.0); MEAN CORPUSCULAR HGB CONC 31.4 g/dl (31.0-37.0); MEAN PLATELET VOLUME 10.5 fl (7.0-11.0); MONO # 0.8 (0.1-0.6); MONO % 8.7 % (1.0-6.0); RBC 4.31 10^6/uL (3.5-6.1); RED CELL DISTRIBUTION WIDTH 14.4 % (11.5-14.5); WHITE BLOOD COUNT 9.3 10^3/ul (4.5-11.0)
[2017-08-14 07:26] LABS: ALB/GLOB RATIO 1.1 (1.1-1.8); ALBUMIN 3.3 g/dL (3.0-4.8); ALT/SGPT 14 U/L (7-56); AST/SGOT 21 U/L (17-59); BLOOD UREA NITROGEN 21 mg/dL (7-21); CALCIUM 8.9 mg/dL (8.4-10.5); GFR AFRICAN-AMERICAN > 60; GFR NON-AFRICAN AMERICAN > 60
[2017-08-14 07:27] VITALS: BP 135/91; RESP 19; TEMP 98.3
[2017-08-14] MEDS: Insulin Lispro (HUMAlog) HIGH Coverage SC SCH (08:58)
[2017-08-14] MEDS: Metoprolol 1 mg/ml Inj IVP PRN (08:58)
[2017-08-14 09:44] VITALS: PULSE 125
--- NOTE | 2017-08-14 11:20 | CP.PCM.DIS ---
<Phong Simon - Last Filed: 08/14/17 11:17> Provider - Provider Date of Admission: 08/06/17 14:21 Attending physician: Melinda Cyr MD Time Spent in preparation of Discharge (in minutes): 45 Diagnosis - Discharge Diagnosis (1) Ascites Status: Acute (2) Intractable abdominal pain Status: Acute (3) Metastases to the liver Status: Acute (4) Pancreatic mass Status: Acute Hospital Course - Lab Results Lab Results: Most Recent Lab Values WBC 9.3 10^3/ul (4.5-11.0) 08/14/17 05:30 RBC 4.31 10^6/uL (3.5-6.1) 08/14/17 05:30 Hgb 11.8 g/dL (14.0-18.0) L 08/14/17 05:30 Hct 37.6 % (42.0-52.0) L 08/14/17 05:30 MCV 87.2 fl (80.0-105.0) 08/14/17 05:30 MCH 27.4 pg (25.0-35.0) 08/14/17 05:30 MCHC 31.4 g/dl (31.0-37.0) 08/14/17 05:30 RDW 14.4 % (11.5-14.5) 08/14/17 05:30 Plt Count 333 10^3/uL (120.0-450.0) 08/14/17 05:30 MPV 10.5 fl (7.0-11.0) 08/14/17 05:30 Gran % 82.5 % (50.0-68.0) H 08/14/17 05:30 Lymph % (Auto) 8.1 % (22.0-35.0) L 08/14/17 05:30 [place] % (Auto) 8.7 % (1.0-6.0) H 08/14/17 05:30 Eos % (Auto) 0.6 % (1.5-5.0) L 08/14/17 05:30 Baso % (Auto) 0.1 % (0.0-3.0) 08/14/17 05:30 Gran # 7.69 (1.4-6.5) H 08/14/17 05:30 Lymph # (Auto) 0.8 (1.2-3.4) L 08/14/17 05:30 [place] # (Auto) 0.8 (0.1-0.6) H 08/14/17 05:30 Eos # (Auto) 0.1 (0.0-0.7) 08/14/17 05:30 Baso # (Auto) 0.01 K/mm3 (0.0-2.0) 08/14/17 05:30 PT 14.1 SECONDS (9.4-12.5) H 08/05/17 05:30 INR 1.22 (0.93-1.08) H 08/05/17 05:30 APTT 34.8 Seconds (25.1-36.5) 08/04/17 10:10 pO2 27 mm/Hg (30-55) L 08/04/17 10:50 VBG pH 7.36 (7.32-7.43) 08/04/17 10:50 VBG pCO2 54.0 (40-60) 08/04/17 10:50 VBG HCO3 30.5 mmol/l (21-28) H 08/04/17 10:50 VBG Total CO2 32.2 mmol.L (22-28) H 08/04/17 10:50 VBG O2 Sat (Calc) 53.6 % (40-65) 08/04/17 10:50 VBG Base Excess 3.7 mmol/L (0.0-2.0) H 08/04/17 10:50 VBG Potassium 3.1 mmol/L (3.6-5.2) L 08/04/17 10:50 Sodium 140.0 mmol/L (132-148) 08/04/17 10:50 Chloride 105.0 mmol/L (98-107) 08/04/17 10:50 Glucose 165 mg/dl (75-110) H 08/04/17 10:50 Lactate 1.2 mmol/L (0.7-2.1) 08/04/17 10:50 FiO2 21.0 % 08/04/17 10:50 Sodium 140 mmol/L (132-148) 08/14/17 05:30 Potassium 4.1 mmol/L (3.6-5.0) 08/14/17 05:30 Chloride 98 mmol/L (98-107) 08/14/17 05:30 Carbon Dioxide 26 mmol/L (21-33) 08/14/17 05:30 Anion Gap 19 (10-20) 08/14/17 05:30 BUN 21 mg/dL (7-21) 08/14/17 05:30 Creatinine 1.0 mg/dl (0.8-1.5) 08/14/17 05:30 Est GFR ( Amer) > 60 08/14/17 05:30 Est GFR (Non-Af Amer) > 60 08/14/17 05:30 POC Glucose (mg/dL) 245 mg/dL (65-110) H 08/14/17 07:45 Random Glucose 245 mg/dL (70-110) H 08/14/17 05:30 Hemoglobin A1c 8.5 % (4.2-6.5) H D 08/04/17 16:31 Calcium 8.9 mg/dL (8.4-10.5) 08/14/17 05:30 Magnesium 1.9 mg/dL (1.7-2.2) 08/05/17 05:30 Total Bilirubin 0.7 mg/dL (0.2-1.3) 08/14/17 05:30 AST 21 U/L (17-59) 08/14/17 05:30 ALT 14 U/L (7-56) 08/14/17 05:30 Alkaline Phosphatase 145 U/L (38-126) H 08/14/17 05:30 Lactate Dehydrogenase 410 U/L (333-699) 08/04/17 10:10 Total Creatine Kinase 23 U/L (35-230) L 08/04/17 10:10 Troponin I 0.04 ng/mL D 08/04/17 10:10 Total Protein 6.2 g/dL (5.8-8.3) 08/14/17 05:30 Albumin 3.3 g/dL (3.0-4.8) 08/14/17 05:30 Globulin 3.0 gm/dL 08/14/17 05:30 Albumin/Globulin Ratio 1.1 (1.1-1.8) 08/14/17 05:30 Amylase 57 U/L (35-125) 08/04/17 10:10 Lipase 75 U/L (23-300) 08/04/17 10:10 Alpha Fetoprotein 1.3 ng/mL (0.0-7.5) 08/08/17 05:30 Carcinoembryonic Ag 4.0 ng/mL (0.0-3.0) H 08/08/17 05:30 CA 19-9 Antigen 458 U/mL (0-37) H 08/08/17 05:30 Venous Blood Potassium 3.1 mmol/L (3.6-5.2) L 08/04/17 10:50 Urine Color Yellow (YELLOW) 08/04/17 12:40 Urine Appearance Sl cloudy (CLEAR) 08/04/17 12:40 Urine pH 6.0 (4.7-8.0) 08/04/17 12:40 Ur Specific [place] 1.025 (1.005-1.035) 08/04/17 12:40 Urine Protein 30 mg/dL (<30 mg/dL) H 08/04/17 12:40 Urine Glucose (UA) Negative mg/dL (NEGATIVE) 08/04/17 12:40 Urine Ketones Negative mg/dL (NEGATIVE) 08/04/17 12:40 Urine Blood Negative (NEGATIVE) 08/04/17 12:40 Urine Nitrate Negative (NEGATIVE) 08/04/17 12:40 Urine Bilirubin Negative (NEGATIVE) 08/04/17 12:40 Urine Urobilinogen 0.2 E.U./dL (<1 E.U./dL) 08/04/17 12:40 Ur Leukocyte Esterase Negative Wanda/uL (NEGATIVE) 08/04/17 12:40 Urine RBC Negative /hpf (0-2) 08/04/17 12:40 Urine WBC Negative /hpf (0-6) 08/04/17 12:40 Urine Other Mucus 08/04/17 12:40 Levetiracetam 19.8 mcg/mL 08/04/17 16:31 Hepatitis A IgM Ab Negative (NEGATIVE) 08/04/17 16:31 Hep Bs Antigen Negative (NEGATIVE) 08/04/17 16:31 Hep B Core IgM Ab Negative (NEGATIVE) 08/04/17 16:31 Hepatitis C Antibody Reactive (NEGATIVE) 08/04/17 16:31 HIV 1&2 Ag/Ab, 4th Gen Nonreactive (Nonreactive) 08/08/17 05:30 - Hospital Course Hospital Course: Patient is a 67 year old male with PMHx of Afib, Hep C, seizure, DVT, Diabetes who was admitted for evaluation and treatment for ED for evaluation and treatment of twin-umbilical abdominal pain. With the use of physical examinations, lab work, and imaging the patient was diagnosed with and treated for abdominal pain secondary to metastatic disease. During their hospital stay the patient was seen by gastroenterology (Dr. Banks), hematology/oncology (Dr. Bess), and interventional radiology (Dr. Webb) and their recommendations were both appreciated and utilized in the care for this patient. GI agreed with Ir guided biospy of liver mets. Dr. Webb performed a biopsy of the liver mets without any complications. During their hospital stay the patient underwent a CT of abdomen/pelvis which were reviewed, appreciated, and utilized in the management of the patients clinical course. CT of abdomen/pelvis revealed a necrotic mass in the head of the pancreas with a diffuse and infiltrative component to adjacent lymph node chains extending to the katelyn hepatis, hepatic metastatic disease, intra-abdominal and pelvic ascites which was presumed to be malignant. Currently awaiting pathology report. Patient informed that he will be notified when report is available. Patient was treated with antihypertensive medications, antiepileptic medications, and restarted on his anticoagulation drugs.Patient desired to leave against medical advice due to social issues. Patient was educated on the risks and benefits of leaving at this time without being medically cleared. Patient both understands and appreciates that leaving against medical advice can increase his risk of both morbidity and mortality. Furthermore, the patient is instructed to return to the emergency room for evaluation of intractable headache, fever, chills, dizziness, chest pain, shortness of breath, abdominal pain, nausea, vomiting, diarrhea, constipation, and urinary symptoms. This is a brief summary of the patients hospital course. Please see patient chart for full details. Discharge Exam - Head Exam Head Exam: ATRAUMATIC, NORMOCEPHALIC - Additional Findings Additional findings: - Eye Exam Eye Exam: Normal appearance - ENT Exam ENT Exam: Mucous Membranes Moist, Normal Exam - Neck Exam Neck Exam: Normal Inspection - Respiratory Exam Respiratory Exam: Clear to Ausculation Bilateral, NORMAL BREATHING PATTERN. absent: Rales, Rhonchi, Respiratory Distress - Cardiovascular Exam Cardiovascular Exam: +S1, +S2 - GI/Abdominal Exam GI & Abdominal Exam: Soft, Normal Bowel Sounds. absent: Guarding, Rigid, Tenderness, Organomegaly - Extremities Exam Extremities Exam: no clubbing, no cynaosis, no edema; absent: Joint Swelling, Pedal Edema - Neurological Exam Neurological Exam: Alert, Awake, Oriented x3 - Psychiatric Exam Psychiatric exam: Normal Affect, Normal Mood - Skin Skin Exam: Dry, Intact, Normal Color, Warm Discharge Plan - Discharge Medications Prescriptions: Digoxin 0.125 mg PO 1400 14 Days tab diltiaZEM [Cardizem] 30 mg PO DAILY 14 Days tab Metoprolol Tartrate [Lopressor] 50 mg PO BID 14 Days tab - Follow Up Plan Condition: GUARDED Disposition: AGAINST MEDICAL ADVICE Patient education suggested?: Yes Instructions: Acute Abdomen (Belly Pain), Adult (DC), Fluid in the Belly ( Ascites) (DC) Additional Instructions: Patient Instructions: Take medications as prescribed. Follow up with [facility] in [place] office and referrals within three to five days from discharge. Return to the emergency room for evaluation of intractable headache, fever, chills, dizziness, chest pain, shortness of breath, abdominal pain, nausea, vomiting, diarrhea, constipation, and urinary symptoms. Referrals: Arlyn Bess MD [Staff Provider] - <Melinda Cyr - Last Filed: 08/14/17 14:12> Provider - Provider Date of Admission: 08/06/17 14:21 Attending physician: Melinda Cyr MD Hospital Course - Lab Results Lab Results: Most Recent Lab Values WBC 9.3 10^3/ul (4.5-11.0) 08/14/17 05:30 RBC 4.31 10^6/uL (3.5-6.1) 08/14/17 05:30 Hgb 11.8 g/dL (14.0-18.0) L 08/14/17 05:30 Hct 37.6 % (42.0-52.0) L 08/14/17 05:30 MCV 87.2 fl (80.0-105.0) 08/14/17 05:30 MCH 27.4 pg (25.0-35.0) 08/14/17 05:30 MCHC 31.4 g/dl (31.0-37.0) 08/14/17 05:30 RDW 14.4 % (11.5-14.5) 08/14/17 05:30 Plt Count 333 10^3/uL (120.0-450.0) 08/14/17 05:30 MPV 10.5 fl (7.0-11.0) 08/14/17 05:30 Gran % 82.5 % (50.0-68.0) H 08/14/17 05:30 Lymph % (Auto) 8.1 % (22.0-35.0) L 08/14/17 05:30 [place] % (Auto) 8.7 % (1.0-6.0) H 08/14/17 05:30 Eos % (Auto) 0.6 % (1.5-5.0) L 08/14/17 05:30 Baso % (Auto) 0.1 % (0.0-3.0) 08/14/17 05:30 Gran # 7.69 (1.4-6.5) H 08/14/17 05:30 Lymph # (Auto) 0.8 (1.2-3.4) L 08/14/17 05:30 [place] # (Auto) 0.8 (0.1-0.6) H 08/14/17 05:30 Eos # (Auto) 0.1 (0.0-0.7) 08/14/17 05:30 Baso # (Auto) 0.01 K/mm3 (0.0-2.0) 08/14/17 05:30 PT 14.1 SECONDS (9.4-12.5) H 08/05/17 05:30 INR 1.22 (0.93-1.08) H 08/05/17 05:30 APTT 34.8 Seconds (25.1-36.5) 08/04/17 10:10 pO2 27 mm/Hg (30-55) L 08/04/17 10:50 VBG pH 7.36 (7.32-7.43) 08/04/17 10:50 VBG pCO2 54.0 (40-60) 08/04/17 10:50 VBG HCO3 30.5 mmol/l (21-28) H 08/04/17 10:50 VBG Total CO2 32.2 mmol.L (22-28) H 08/04/17 10:50 VBG O2 Sat (Calc) 53.6 % (40-65) 08/04/17 10:50 VBG Base Excess 3.7 mmol/L (0.0-2.0) H 08/04/17 10:50 VBG Potassium 3.1 mmol/L (3.6-5.2) L 08/04/17 10:50 Sodium 140.0 mmol/L (132-148) 08/04/17 10:50 Chloride 105.0 mmol/L (98-107) 08/04/17 10:50 Glucose 165 mg/dl (75-110) H 08/04/17 10:50 Lactate 1.2 mmol/L (0.7-2.1) 08/04/17 10:50 FiO2 21.0 % 08/04/17 10:50 Sodium 140 mmol/L (132-148) 08/14/17 05:30 Potassium 4.1 mmol/L (3.6-5.0) 08/14/17 05:30 Chloride 98 mmol/L (98-107) 08/14/17 05:30 Carbon Dioxide 26 mmol/L (21-33) 08/14/17 05:30 Anion Gap 19 (10-20) 08/14/17 05:30 BUN 21 mg/dL (7-21) 08/14/17 05:30 Creatinine 1.0 mg/dl (0.8-1.5) 08/14/17 05:30 Est GFR ( Amer) > 60 08/14/17 05:30 Est GFR (Non-Af Amer) > 60 08/14/17 05:30 POC Glucose (mg/dL) 245 mg/dL (65-110) H 08/14/17 07:45 Random Glucose 245 mg/dL (70-110) H 08/14/17 05:30 Hemoglobin A1c 8.5 % (4.2-6.5) H D 08/04/17 16:31 Calcium 8.9 mg/dL (8.4-10.5) 08/14/17 05:30 Magnesium 1.9 mg/dL (1.7-2.2) 08/05/17 05:30 Total Bilirubin 0.7 mg/dL (0.2-1.3) 08/14/17 05:30 AST 21 U/L (17-59) 08/14/17 05:30 ALT 14 U/L (7-56) 08/14/17 05:30 Alkaline Phosphatase 145 U/L (38-126) H 08/14/17 05:30 Lactate Dehydrogenase 410 U/L (333-699) 08/04/17 10:10 Total Creatine Kinase 23 U/L (35-230) L 08/04/17 10:10 Troponin I 0.04 ng/mL D 08/04/17 10:10 Total Protein 6.2 g/dL (5.8-8.3) 08/14/17 05:30 Albumin 3.3 g/dL (3.0-4.8) 08/14/17 05:30 Globulin 3.0 gm/dL 08/14/17 05:30 Albumin/Globulin Ratio 1.1 (1.1-1.8) 08/14/17 05:30 Amylase 57 U/L (35-125) 08/04/17 10:10 Lipase 75 U/L (23-300) 08/04/17 10:10 Alpha Fetoprotein 1.3 ng/mL (0.0-7.5) 08/08/17 05:30 Carcinoembryonic Ag 4.0 ng/mL (0.0-3.0) H 08/08/17 05:30 CA 19-9 Antigen 458 U/mL (0-37) H 08/08/17 05:30 Venous Blood Potassium 3.1 mmol/L (3.6-5.2) L 08/04/17 10:50 Urine Color Yellow (YELLOW) 08/04/17 12:40 Urine Appearance Sl cloudy (CLEAR) 08/04/17 12:40 Urine pH 6.0 (4.7-8.0) 08/04/17 12:40 Ur Specific [place] 1.025 (1.005-1.035) 08/04/17 12:40 Urine Protein 30 mg/dL (<30 mg/dL) H 08/04/17 12:40 Urine Glucose (UA) Negative mg/dL (NEGATIVE) 08/04/17 12:40 Urine Ketones Negative mg/dL (NEGATIVE) 08/04/17 12:40 Urine Blood Negative (NEGATIVE) 08/04/17 12:40 Urine Nitrate Negative (NEGATIVE) 08/04/17 12:40 Urine Bilirubin Negative (NEGATIVE) 08/04/17 12:40 Urine Urobilinogen 0.2 E.U./dL (<1 E.U./dL) 08/04/17 12:40 Ur Leukocyte Esterase Negative Wanda/uL (NEGATIVE) 08/04/17 12:40 Urine RBC Negative /hpf (0-2) 08/04/17 12:40 Urine WBC Negative /hpf (0-6) 08/04/17 12:40 Urine Other Mucus 08/04/17 12:40 Levetiracetam 19.8 mcg/mL 08/04/17 16:31 Hepatitis A IgM Ab Negative (NEGATIVE) 08/04/17 16:31 Hep Bs Antigen Negative (NEGATIVE) 08/04/17 16:31 Hep B Core IgM Ab Negative (NEGATIVE) 08/04/17 16:31 Hepatitis C Antibody Reactive (NEGATIVE) 08/04/17 16:31 HIV 1&2 Ag/Ab, 4th Gen Nonreactive (Nonreactive) 08/08/17 05:30 Attending/Attestation - Attestation I have personally seen and examined this patient.: Yes I have fully participated in the care of the patient.: Yes I have reviewed all pertinent clinical information, including history, physical exam and plan: Yes Notes (Text): Patient left AMA.
== END 2017-08-14 12:42 | disposition left against medical advice (07) | DRG 436 ==
LOC: ED 09:47 → ERH 14:10 → 3RNO 20:43 → OBSVTOIN 08-06 14:21
PROVIDERS: ADMIT Internal Medicine; ATTEND Hospitalist
PROC: 0FB23ZX Excision of Left Lobe Liver, Percutaneous Approach, Diagnostic (ICD-10-PCS; principal; 2017-08-06 17:30)
DX: C25.0 Malignant neoplasm of head of pancreas (principal); C78.7 Secondary malignant neoplasm of liver and intrahepatic bile duct; R45.851 Suicidal ideations; I48.92 Unspecified atrial flutter; R18.0 Malignant ascites; I48.91 Unspecified atrial fibrillation; B19.20 Unspecified viral hepatitis C without hepatic coma; E11.42 Type 2 diabetes mellitus with diabetic polyneuropathy; I25.10 Atherosclerotic heart disease of native coronary artery without angina pectoris; G89.3 Neoplasm related pain (acute) (chronic); R26.9 Unspecified abnormalities of gait and mobility; E78.00 Pure hypercholesterolemia, unspecified; F43.22 Adjustment disorder with anxiety; G40.909 Epilepsy, unspecified, not intractable, without status epilepticus; I10 Essential (primary) hypertension; R59.9 Enlarged lymph nodes, unspecified; E11.65 Type 2 diabetes mellitus with hyperglycemia; K21.9 Gastro-esophageal reflux disease without esophagitis; R00.0 Tachycardia, unspecified; Z79.01 Long term (current) use of anticoagulants; Z79.4 Long term (current) use of insulin; Z86.718 Personal history of other venous thrombosis and embolism; Z95.1 Presence of aortocoronary bypass graft; Z87.891 Personal history of nicotine dependence

== ENCOUNTER 2017-08-15 15:54 | Inpatient (IN) | payer OTHER ==
[2017-08-15 15:56] VITALS: BMI 27.0
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
[2017-08-15] MEDS ORDERED: Sodium Chloride 0.9% 1,000 ML IV SCH (16:45)
[2017-08-15 17:36] LABS: VENOUS BLOOD GAS BASE EXCESS 2.2 mmol/L (0.0-2.0); VENOUS BLOOD GAS PO2 50 mm/Hg (30-55); VENOUS BLOOD PH 7.39 (7.32-7.43)
[2017-08-15 17:43] LABS: BASO # 0.01 K/mm3 (0.0-2.0); BASO % 0.1 % (0.0-3.0); EOS % 0.1 % (1.5-5.0); GRAN # 7.35 (1.4-6.5); GRAN % 88.1 % (50.0-68.0); HEMOGLOBIN 11.6 g/dL (14.0-18.0); LYMPH # 0.4 (1.2-3.4); LYMPH % 4.7 % (22.0-35.0); MEAN CELL VOLUME 87.3 fl (80.0-105.0); MEAN CORPUSCULAR HEMOGLOBIN 27.3 pg (25.0-35.0); MEAN CORPUSCULAR HGB CONC 31.3 g/dl (31.0-37.0); MEAN PLATELET VOLUME 10.6 fl (7.0-11.0); MONO # 0.6 (0.1-0.6); PLATELET COUNT 317 10^3/uL (120.0-450.0); RBC 4.25 10^6/uL (3.5-6.1); RED CELL DISTRIBUTION WIDTH 14.4 % (11.5-14.5); WHITE BLOOD COUNT 8.3 10^3/ul (4.5-11.0)
[2017-08-15 17:47] LABS: BLOOD UREA NITROGEN 20 mg/dL (7-21); GFR AFRICAN-AMERICAN > 60; GFR NON-AFRICAN AMERICAN > 60
[2017-08-15 17:51] LABS: INR 1.21 (0.93-1.08); PARTIAL THROMBOPLASTIN TIME 32.4 Seconds (25.1-36.5); PROTHROMBIN TIME 13.9 SECONDS (9.4-12.5)
--- NOTE | 2017-08-15 17:58 | CT ---
PROCEDURE: CT HEAD WITHOUT CONTRAST. HISTORY: 67m weakness COMPARISON: Unenhanced head CT 12/29/2016. TECHNIQUE: Axial computed tomography images were obtained through the head/brain without intravenous contrast. Radiation dose: Total exam DLP = 1239.76 mGy-cm. This CT exam was performed using one or more of the following dose reduction techniques: Automated exposure control, adjustment of the mA and/or kV according to patient size, and/or use of iterative reconstruction technique. FINDINGS: HEMORRHAGE: No intracranial hemorrhage. 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 No interval mass effect is identified or suspicious extra-axial fluid collection in the midline brain and appears diffusely unremarkable nevertheless. Posterior fossa contents remain unremarkable including the brainstem. VENTRICLES: Unremarkable. No hydrocephalus. CALVARIUM: Unremarkable. PARANASAL SINUSES: Unremarkable as visualized. No significant inflammatory changes. MASTOID AIR CELLS: Unremarkable as visualized. No inflammatory changes. OTHER FINDINGS: None. IMPRESSION: Stable unenhanced head CT with no suspicious interval findings. Age-related neuro degenerative changes are reiterated as well as a chronic lobar infarction left frontal lobe. Follow-up CT or MRI are available as clinically warranted.
[2017-08-15 18:01] LABS: B-TYPE NATRIURETIC PEPTIDE 4010 pg/mL (0-450); TROPONIN I 0.04 ng/mL
[2017-08-15 18:02] LABS: ALB/GLOB RATIO 1.3 (1.1-1.8); ALBUMIN 3.4 g/dL (3.0-4.8); AST/SGOT 26 U/L (17-59)
[2017-08-15 18:03] LABS: ALT/SGPT 22 U/L (7-56)
--- NOTE | 2017-08-15 18:28 | RAD ---
HISTORY: 67yoM, generalized weakness COMPARISON: Portable chest 08/04/2017. FINDINGS: LUNGS: No active pulmonary disease. PLEURA: No significant pleural effusion identified, no pneumothorax apparent. CARDIOVASCULAR: Cardiac size is stable with no pulmonary vascular congestion evident at this time. Sternotomy wires and CABG related surgical clips again seen throughout the mediastinum. OSSEOUS STRUCTURES: No significant abnormalities. VISUALIZED UPPER ABDOMEN: Normal. OTHER FINDINGS: None. IMPRESSION: No interval acute cardiopulmonary disease appreciated. Post CABG changes reiterated.
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
[2017-08-15] MEDS ORDERED: Metoprolol 1 mg/ml Inj IVP PRN ×2 (19:11→21:52)
[2017-08-15 19:21] LABS: LYMPHOCYTE 7 % (22.0-35.0); MONOCYTE 12 % (1.0-6.0); NEUTROPHIL 81 % (50.0-70.0)
--- NOTE | 2017-08-15 19:39 | CARD ---
APPROVED REPORT EKG Measurement Heart [id number] <Conclusion> Atrial flutter with variable AV block with premature ventricular or aberrantly conducted complexes Marked ST abnormality, possible inferior subendocardial injury Abnormal ECG
[2017-08-15 19:42] LABS: ACETAMINOPHEN < 10.0 ug/ml (10.0-20.0); SALICYLATE < 1 mg/dL (2.0-20.0)
[2017-08-15] MEDS ORDERED: Pneumococcal 23-Valent Vaccine IM ONE (22:15)
[2017-08-15] MEDS: Insulin Lispro (HUMAlog) HIGH Coverage SC SCH (23:15)
[2017-08-15 23:28] LABS: TROPONIN I 0.04 ng/mL
[2017-08-16] MEDS: Pantoprazole 40 mg EC Tab PO SCH (06:10)
[2017-08-16] MEDS: Insulin Lispro (HUMAlog) HIGH Coverage SC SCH ×3 (08:27→17:05)
[2017-08-16 08:49] LABS: ALB/GLOB RATIO 1.1 (1.1-1.8); ALBUMIN 3.1 g/dL (3.0-4.8); ALT/SGPT 20 U/L (7-56); AST/SGOT 24 U/L (17-59); BLOOD UREA NITROGEN 18 mg/dL (7-21); CALCIUM 8.8 mg/dL (8.4-10.5); GFR AFRICAN-AMERICAN > 60; GFR NON-AFRICAN AMERICAN > 60
[2017-08-16 08:53] LABS: TROPONIN I 0.05 ng/mL
[2017-08-16 08:56] LABS: BASO # 0.01 K/mm3 (0.0-2.0); BASO % 0.1 % (0.0-3.0); EOS % 0.5 % (1.5-5.0); GRAN # 6.76 (1.4-6.5); GRAN % 84.2 % (50.0-68.0); HEMOGLOBIN 10.9 g/dL (14.0-18.0); LYMPH # 0.6 (1.2-3.4); LYMPH % 7.5 % (22.0-35.0); MEAN CELL VOLUME 87.5 fl (80.0-105.0); MEAN CORPUSCULAR HEMOGLOBIN 27.2 pg (25.0-35.0); MEAN CORPUSCULAR HGB CONC 31.1 g/dl (31.0-37.0); MEAN PLATELET VOLUME 10.9 fl (7.0-11.0); MONO # 0.6 (0.1-0.6); MONO % 7.7 % (1.0-6.0); RBC 4.01 10^6/uL (3.5-6.1); RED CELL DISTRIBUTION WIDTH 14.4 % (11.5-14.5)
[2017-08-16] MEDS: POLYETHYLENE GLYCOL 3350 17 GM/Dose PACKET PO SCH (09:14)
--- NOTE | 2017-08-16 11:41 | CP.PCM.PN ---
<Phong Simon - Last Filed: 08/16/17 11:34> Subjective - Date & Time of Evaluation Date of Evaluation: 08/16/17 Time of Evaluation: 08:50 - Subjective Subjective: Subjective: Patient seen and examined. States he was only able to sleep intermittently last night. Admits to decreased appetite and baseline abdominal discomfort. Denies fever, chills, chest pain, nausea, vomiting, diarrhea, and urinary symptoms. 12-point review of systems negative except as indicated in the HPI Physical Examination: - Constitutional Appears: NAD - Head Exam Head Exam: ATRAUMATIC, NORMAL INSPECTION, NORMOCEPHALIC - Eye Exam Eye Exam: EOMI, Normal appearance, PERRL - ENT Exam ENT Exam: Mucous Membranes Moist, Normal Exam - Neck Exam Neck exam: Positive for: Normal Inspection - Respiratory Exam Respiratory Exam: NORMAL BREATHING PATTERN, CTA bilaterally - Cardiovascular Exam Cardiovascular Exam: +s1, +s2 - GI/Abdominal Exam GI & Abdominal Exam: no guarding, no rebound tenderness - Extremities Exam Extremities exam: Positive for: normal inspection - Neurological Exam Neurological exam: Alert, CN II-XII Intact, Normal Gait, Oriented x 3 Assessment and Plan: Patient is a 67 year old male with PMHx of Afib, Hep C, seizure, DVT, Diabetes who was admitted for evaluation and treatment for ED for evaluation and treatment of generalized weakness and fall. Generalized Weakness, Fall - likely secondary to poor PO intake - head CT- Stable unenhanced head CT with no suspicious interval findings. Age- related neuro degenerative changes are reiterated as well as a chronic lobar infarction left frontal lobe - CXR- No interval acute cardiopulmonary disease appreciated - neuro checks q4 - high risk fall precautions Adenocarcinoma of the Upper GI/Pancreatobiliary Origin; Abdominal Pain: - CT of abdomen/pelvis from 08/04/17: 1. Necrotic mass in the head of the pancreas with a diffuse and infiltrative component to adjacent lymph node chains extending to the katelyn hepatis. 2. Hepatic metastatic disease. 3. Intra-abdominal and pelvic ascites presumed to be malignant. - Hematology/oncology consulted- appreciate recommendations - previous admission- GI consulted- if pt is proceeding with possible treatment in the future will eventually need outp colonoscopy and EGD - previous admission- IR consulted for biopsy- biopsy performed on 08/06/2017- pathology report indicates adenocarcinoma of the upper GI/pancreatobiliary origin - reconsult heme/onc- Dr. Crowe - pain control with morphine Atrial Flutter; Hx of Atrial fibrillation - EKG- atrial flutter with variable av block with premature ventricular or aberrantly conducted complexes HR 149, QTc 475 - continue Lopressor PO taryn and IV prn - c/w digoxin - as per cardiology cardizem increased to 30mg TID with a loading dose of 120mg starting on 08/17/17 - c/w xarelto and aspirin - cardiac enzymes q6 x 3 - BNP elevated- ~4000s - cardiology consulted- appreciate recommendations Decreased Appetite - patient education provided on proper nutrient intake - encouraged increased PO intake Hyperglycemia; Hx of IDDM2 - blood glucoses reviewed, trended, and appreciated- elevated - hold home metformin - ACHS - hold home insulin - moderate carb controlled diet Hx of Seizure disorders - will continue with keppra 500 mg bid - Seizure and fall precaution Hx of CAD s/p CABG - continue with Lopressor - continue with Lipitor Hx of Peripheral neuropathy -continue with gabapentin Hx of Anxiety - continue xanax 0.5 mg bid prn Gait instability - high risk fall precautions - PT eval- appreciate input- recommends subacute rehabilitation Constipation - c/w miralax and docusate Prophylaxis - DVT prophylaxis-c/w xarelto and SCDs in patient - GI prophylaxis - on protonix Patient seen, case discussed with, and plan approved by attending physician. Objective - Vital Signs/Intake and Output Vital Signs (last 24 hours): Temp Pulse Resp BP Pulse Ox 98.6 F 86 20 124/80 99 08/15/17 21:38 08/16/17 09:21 08/15/17 21:38 08/16/17 09:21 08/15/17 20:05 Intake and Output: 08/16/17 08/16/17 06:59 18:59 Intake Total 300 Output Total 200 Balance 100 - Medications Medications: Current Medications Acetaminophen (Tylenol 325mg Tab) 650 mg PO Q4 PRN PRN Reason: Pain, moderate (4-7) Alprazolam (Xanax) 0.5 mg PO DAILY TARYN PRN Reason: Protocol Last Admin: 08/16/17 09:15 Dose: 0.5 mg Aspirin (Ecotrin) 81 mg PO DAILY TARYN Last Admin: 08/16/17 09:15 Dose: 81 mg Atorvastatin Calcium (Lipitor) 40 mg PO DIN TARYN Digoxin (Digoxin) 0.125 mg PO 1400 [facility] Diltiazem HCl (Cardizem Cd) 120 mg PO DAILY [facility] Diltiazem HCl (Cardizem) 30 mg PO TID [facility] Stop: 08/16/17 23:59 Docusate Sodium (Colace) 100 mg PO DAILY [facility] Last Admin: 08/16/17 09:15 Dose: 100 mg Gabapentin (Neurontin) 300 mg PO TID [facility] PRN Reason: Protocol Last Admin: 08/16/17 09:15 Dose: 300 mg Sodium Chloride (Sodium Chloride 0.9%) 1,000 mls @ 100 mls/hr IV .Q10H [facility] Last Admin: 08/15/17 17:15 Dose: 100 mls/hr Insulin Human Lispro (Humalog High) 0 units SC ACHS [facility] PRN Reason: Protocol Last Admin: 08/16/17 08:27 Dose: 4 units Levetiracetam (Keppra) 500 mg PO Q12 [facility] Last Admin: 08/16/17 09:15 Dose: 500 mg Metoprolol Tartrate (Lopressor) 50 mg PO BID [facility] Last Admin: 08/16/17 09:21 Dose: 50 mg Metoprolol Tartrate (Lopressor) 5 mg IVP ONCE PRN PRN Reason: tachycardia HR > 115 bpm Metoprolol Tartrate (Lopressor) 5 mg IVP Q6H PRN PRN Reason: tachycardia > 120 Morphine Sulfate (Morphine Extended Release Tab) 15 mg PO Q12 [facility] Pantoprazole Sodium (Protonix Ec Tab) 40 mg PO 0600 [facility] Last Admin: 08/16/17 06:10 Dose: 40 mg Polyethylene Glycol (Miralax) 17 gm PO DAILY [facility] Last Admin: 08/16/17 09:14 Dose: 17 gm Rivaroxaban (Xarelto) 15 mg PO DAILY [facility] PRN Reason: Protocol Last Admin: 08/16/17 09:15 Dose: 15 mg Thiamine HCl (Vitamin B1 Tab) 100 mg PO DAILY [facility] Last Admin: 08/16/17 09:15 Dose: 100 mg - Labs Labs: 08/16/17 08:00 08/16/17 08:00 PT 13.9 SECONDS (9.4-12.5) H 08/15/17 17:22 INR 1.21 (0.93-1.08) H 08/15/17 17:22 APTT 32.4 Seconds (25.1-36.5) 08/15/17 17:22 <Germain Tim - Last Filed: 08/16/17 13:20> Objective - Vital Signs/Intake and Output Vital Signs (last 24 hours): Temp Pulse Resp BP Pulse Ox 98.6 F 103 H 20 124/80 99 08/15/17 21:38 08/16/17 10:00 08/15/17 21:38 08/16/17 09:21 08/15/17 20:05 Intake and Output: 08/16/17 08/16/17 06:59 18:59 Intake Total 300 Output Total 200 Balance 100 - Medications Medications: Current Medications Acetaminophen (Tylenol 325mg Tab) 650 mg PO Q4 PRN PRN Reason: Pain, moderate (4-7) Alprazolam (Xanax) 0.5 mg PO DAILY [facility] PRN Reason: Protocol Last Admin: 08/16/17 09:15 Dose: 0.5 mg Aspirin (Ecotrin) 81 mg PO DAILY [facility] Last Admin: 08/16/17 09:15 Dose: 81 mg Atorvastatin Calcium (Lipitor) 40 mg PO DIN [facility] Digoxin (Digoxin) 0.125 mg PO 1400 [facility] Diltiazem HCl (Cardizem Cd) 120 mg PO DAILY [facility] Diltiazem HCl (Cardizem) 30 mg PO TID [facility] Stop: 08/16/17 23:59 Docusate Sodium (Colace) 100 mg PO DAILY [facility] Last Admin: 08/16/17 09:15 Dose: 100 mg Gabapentin (Neurontin) 300 mg PO TID [facility] PRN Reason: Protocol Last Admin: 08/16/17 09:15 Dose: 300 mg Sodium Chloride (Sodium Chloride 0.9%) 1,000 mls @ 100 mls/hr IV .Q10H [facility] Last Admin: 08/15/17 17:15 Dose: 100 mls/hr Insulin Human Lispro (Humalog High) 0 units SC ACHS [facility] PRN Reason: Protocol Last Admin: 08/16/17 12:29 Dose: 2 units Levetiracetam (Keppra) 500 mg PO Q12 [facility] Last Admin: 08/16/17 09:15 Dose: 500 mg Metoprolol Tartrate (Lopressor) 50 mg PO BID [facility] Last Admin: 08/16/17 09:21 Dose: 50 mg Metoprolol Tartrate (Lopressor) 5 mg IVP Q6H PRN PRN Reason: tachycardia > 120 Morphine Sulfate (Morphine Extended Release Tab) 15 mg PO Q12 [facility] Last Admin: 08/16/17 12:28 Dose: 15 mg Pantoprazole Sodium (Protonix Ec Tab) 40 mg PO 0600 [facility] Last Admin: 08/16/17 06:10 Dose: 40 mg Polyethylene Glycol (Miralax) 17 gm PO DAILY [facility] Last Admin: 08/16/17 09:14 Dose: 17 gm Rivaroxaban (Xarelto) 15 mg PO DAILY [facility] PRN Reason: Protocol Last Admin: 08/16/17 09:15 Dose: 15 mg Thiamine HCl (Vitamin B1 Tab) 100 mg PO DAILY [facility] Last Admin: 08/16/17 09:15 Dose: 100 mg - Labs Labs: 08/16/17 08:00 08/16/17 08:00 PT 13.9 SECONDS (9.4-12.5) H 08/15/17 17:22 INR 1.21 (0.93-1.08) H 08/15/17 17:22 APTT 32.4 Seconds (25.1-36.5) 08/15/17 17:22 Attending/Attestation - Attestation I have personally seen and examined this patient.: Yes I have fully participated in the care of the patient.: Yes I have reviewed all pertinent clinical information, including history, physical exam and plan: Yes Notes (Text): 08/16/17 13:05 attending note; Patient seen and examined with resident. Patient was readmitted last night. He signed AGAINST MEDICAL ADVICE 2 days ago. Currently patient was admitted for unsteady gait and fall. CT head is negative. No obvious injury noted. Patient is currently alert and awake. Complaining of insomnia. Complaining of intermittent abdominal pain. Denies any nausea, vomiting. Tolerating diet. Patient is a 67 year old male with PMhx of Afib, Hep C, diabetes, seizure, Diabetes, recently diagnosed GI /hepatobiliary adenocarcinoma is admitted with fall . Fall precautions ordered. A. fib; heart rate is 110 this morning. Continue metoprolol and digoxin. Cardizem added by overlock elastic attacher. Monitor on remote telemetry. Continue aspirin and xeralto. Anxiety; patient is requesting xanax. Also patient is in denial about his possible diagnosis. We will get oncologist to talk to him. Psychiatric evaluation requested. diabetes; continue regular insulin sliding scale. PT evaluation requested. Case discussed with returned case inspector for discharge planning.
[2017-08-16] MEDS: Morphine 15 mg SR Tab PO SCH ×2 (12:28→22:57)
[2017-08-16] MEDS: Digoxin 125 mcg (0.125 mg) Tab PO SCH (13:35)
--- NOTE | 2017-08-16 22:23 | CON ---
DATE: 08/16/2017 SERVICE: Cardiology. REASON FOR CONSULTATION: Followup atrial flutter with rapid ventricular rate, history of coronary artery disease, history of CABG. BRIEF CLINICAL HISTORY: This is a 67-year-old with a past medical history significant for coronary artery disease, status post CABG 6 years ago in [facility], history of AFib, chronic history of hepatitis C, history of seizure, DVT, diabetes, history of pancreatic mass with hepatic metastasis, came in. He fell down. Denies any chest pain, shortness of breath or any palpitation, though complain of some shortness of breath on exertion. PAST MEDICAL HISTORY: Significant for chronic atrial fibrillation, on Xarelto; history of DVT; history of type 2 diabetes; history of peripheral neuropathy; history of necrotic mass in the head of the pancreas; hepatic metastasis; history of coronary artery disease; history of CABG done in [facility]. PAST SURGICAL HISTORY: Significant for coronary artery bypass surgery in 2010 in [facility]. FAMILY HISTORY: Not significant history of hypertension and coronary artery disease. SOCIAL HISTORY: Ex-smoker, quit 20 years ago. Denies any history of alcohol abuse. Walks with a cane. ALLERGIES: ACETAMINOPHEN AND OXYCODONE. CURRENT MEDICATIONS: Patient is at home, was taking metformin 500 p.o. b.i.d., Cardizem 30 mg p.o. three times a day, Xarelto 50 mg daily, metoprolol tartrate 50 mg twice a day, Keppra, insulin, Digoxin, atorvastatin, aspirin, Xanax. REVIEW OF SYSTEMS: As per HPI. PHYSICAL EXAMINATION: As follows: VITAL SIGNS: Temperature afebrile, heart rate 86, blood pressure 124/80. HEENT: PERRLA. Extraocular muscles intact. NECK: Supple. No carotid bruit, no thyromegaly. CHEST: Clear to auscultation. HEART: S1 and S2, regular. ABDOMEN: Soft. EXTREMITIES: Clubbing and cyanosis negative. BLOOD WORKUP: As follows. WBC 8, hemoglobin 10.9, hematocrit 35.1, platelet count 305. Chemistry shows sodium 139, potassium 4, chloride 90, carbon dioxide 27, anion gap of 19, BUN 18, creatinine 1. Troponin 0.05, normal. IMPRESSION: Atrial fibrillation with rapid ventricular rate, now rate well controlled; status post fall; history of coronary artery disease, coronary artery bypass graft; diabetes; hypertension; hyperlipidemia; history of pancreatic mass with metastasis to the liver. RECOMMENDATIONS: Continue beta julisa, continue Cardizem, monitor heart rate and blood pressure. We will change Cardizem to 30 mg every 8 and change to Cardizem 120 mg from tomorrow. Thank you Dr. Tim for providing us the opportunity in taking care of the patient, Hector Camacho. Patient is a , used to go to [facility], and had recently workup done there. We will follow with you. Lisa Kline MD
[2017-08-17] MEDS: Insulin Lispro (HUMAlog) HIGH Coverage SC SCH ×4 (01:05→16:43)
[2017-08-17] MEDS: Pantoprazole 40 mg EC Tab PO SCH (06:27)
[2017-08-17 08:13] LABS: BASO # 0.01 K/mm3 (0.0-2.0); BASO % 0.2 % (0.0-3.0); EOS % 0.6 % (1.5-5.0); GRAN # 5.43 (1.4-6.5); GRAN % 81.8 % (50.0-68.0); HEMOGLOBIN 10.6 g/dL (14.0-18.0); LYMPH # 0.5 (1.2-3.4); LYMPH % 7.7 % (22.0-35.0); MEAN CORPUSCULAR HEMOGLOBIN 26.6 pg (25.0-35.0); MEAN CORPUSCULAR HGB CONC 30.5 g/dl (31.0-37.0); MEAN PLATELET VOLUME 10.8 fl (7.0-11.0); MONO # 0.6 (0.1-0.6); MONO % 9.7 % (1.0-6.0); RBC 3.99 10^6/uL (3.5-6.1); RED CELL DISTRIBUTION WIDTH 14.3 % (11.5-14.5); WHITE BLOOD COUNT 6.6 10^3/ul (4.5-11.0)
--- NOTE | 2017-08-17 08:28 | CP.PCM.PN ---
Subjective - Date & Time of Evaluation Date of Evaluation: 08/17/17 Time of Evaluation: 07:00 - Subjective Subjective: Doing okay, denies shortness of breath and chest pain Reason for consult and follow up: cardiac evaluation, atrial flutter with rapid ventricular rate, coronary artery disease post CABG. Seen and examined by me and Dr. Kline Objective - Vital Signs/Intake and Output Vital Signs (last 24 hours): Temp Pulse Resp BP Pulse Ox 98.6 F 87 20 121/79 99 08/15/17 21:38 08/16/17 22:00 08/15/17 21:38 08/16/17 17:07 08/15/17 20:05 - Medications Medications: Current Medications Acetaminophen (Tylenol 325mg Tab) 650 mg PO Q4 PRN PRN Reason: Pain, moderate (4-7) Alprazolam (Xanax) 0.5 mg PO DAILY [facility] PRN Reason: Protocol Last Admin: 08/16/17 09:15 Dose: 0.5 mg Aspirin (Ecotrin) 81 mg PO DAILY [facility] Last Admin: 08/16/17 09:15 Dose: 81 mg Atorvastatin Calcium (Lipitor) 40 mg PO DIN [facility] Last Admin: 08/16/17 17:07 Dose: 40 mg Digoxin (Digoxin) 0.125 mg PO 1400 [facility] Last Admin: 08/16/17 13:35 Dose: 0.125 mg Diltiazem HCl (Cardizem Cd) 120 mg PO DAILY [facility] Docusate Sodium (Colace) 100 mg PO DAILY [facility] Last Admin: 08/16/17 09:15 Dose: 100 mg Gabapentin (Neurontin) 300 mg PO TID [facility] PRN Reason: Protocol Last Admin: 08/16/17 17:05 Dose: 300 mg Sodium Chloride (Sodium Chloride 0.9%) 1,000 mls @ 100 mls/hr IV .Q10H [facility] Last Admin: 08/15/17 17:15 Dose: 100 mls/hr Insulin Human Lispro (Humalog High) 0 units SC ACHS [facility] PRN Reason: Protocol Last Admin: 08/17/17 01:05 Dose: Not Given Levetiracetam (Keppra) 500 mg PO Q12 [facility] Last Admin: 08/16/17 22:57 Dose: 500 mg Metoprolol Tartrate (Lopressor) 50 mg PO BID [facility] Last Admin: 08/16/17 17:07 Dose: 50 mg Metoprolol Tartrate (Lopressor) 5 mg IVP Q6H PRN PRN Reason: tachycardia > 120 Morphine Sulfate (Morphine Extended Release Tab) 15 mg PO Q12 [facility] Last Admin: 08/16/17 22:57 Dose: 15 mg Pantoprazole Sodium (Protonix Ec Tab) 40 mg PO 0600 [facility] Last Admin: 08/17/17 06:27 Dose: 40 mg Polyethylene Glycol (Miralax) 17 gm PO DAILY [facility] Last Admin: 08/16/17 09:14 Dose: 17 gm Rivaroxaban (Xarelto) 15 mg PO DAILY [facility] PRN Reason: Protocol Last Admin: 08/16/17 09:15 Dose: 15 mg Thiamine HCl (Vitamin B1 Tab) 100 mg PO DAILY [facility] Last Admin: 08/16/17 09:15 Dose: 100 mg - Labs Labs: 08/17/17 07:30 08/16/17 08:00 PT 13.9 SECONDS (9.4-12.5) H 08/15/17 17:22 INR 1.21 (0.93-1.08) H 08/15/17 17:22 APTT 32.4 Seconds (25.1-36.5) 08/15/17 17:22 - Constitutional Appears: No Acute Distress - Head Exam Head Exam: NORMAL INSPECTION - Eye Exam Eye Exam: Normal appearance - ENT Exam ENT Exam: Mucous Membranes Moist - Respiratory Exam Respiratory Exam: Clear to Ausculation Bilateral, NORMAL BREATHING PATTERN - GI/Abdominal Exam GI & Abdominal Exam: Soft, Normal Bowel Sounds - Extremities Exam Extremities Exam: Normal Capillary Refill Additional comments: unstable gait - Neurological Exam Neurological Exam: Alert, Awake, Oriented x3 - Psychiatric Exam Psychiatric exam: Normal Affect, Normal Mood Assessment and Plan - Assessment and Plan (Free Text) Assessment: Came in to the ER due to fall.found by police and brought to [facility]. Denies chest pain or syncopal episode. He claimed that his leg gave way. History of Atrial fibrillation, coronary artery disease with CABG 2010 in [facility]. history of chronic hep C, DVT, pancreatic mass hepatic metastasis,peripheral neuropathy,ex- smoker, walks with cane. . Plan: Cardiac status stable Continue Digoxin 0.125mcg daily,ASA 81 mg daily,Lipitor 40 mg daily, Cardizem CD 120 mg daily,Lopressor 50 mg BID On IV hydration Continue current medications Continue current treatment Will treat conservatively medically, [facility] up Will follow up Plan and treatment discussed with Dr. Kline
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
[2017-08-17 08:37] LABS: LDL CHOLESTEROL 46 mg/dL (0-129)
[2017-08-17 08:44] LABS: ALBUMIN 2.7 g/dL (3.0-4.8); ALT/SGPT 18 U/L (7-56); AST/SGOT 17 U/L (17-59); BLOOD UREA NITROGEN 16 mg/dL (7-21); CALCIUM 8.1 mg/dL (8.4-10.5); GFR AFRICAN-AMERICAN > 60; GFR NON-AFRICAN AMERICAN > 60; HDL CHOLESTEROL 26 mg/dL (29-60)
[2017-08-17] MEDS ORDERED: diltiaZEM 120 mg/24 Hours CD Cap PO SCH (10:00)
[2017-08-17] MEDS: Insulin Detemir 100 units/ml Vial (Levemir) SC SCH ×2 (10:07→21:08)
[2017-08-17] MEDS: POLYETHYLENE GLYCOL 3350 17 GM/Dose PACKET PO SCH (10:07)
[2017-08-17] MEDS: Morphine 15 mg SR Tab PO SCH ×2 (10:08→21:09)
[2017-08-17] MEDS ORDERED: DiphenhydrAMINE 50 mg/ml Inj IVP STA (10:22)
--- NOTE | 2017-08-17 11:42 | CP.PCM.PCO ---
Addendum Addendum: Please refer to dictated note for patient's progress note and recommendations. Paxil was initiated for anxiety and possible underlying depression--though patient appears reluctant about discussing possible symptoms of depression. As requested, I reached out to answering service at [phone] and left a request for call back by Dr. Vogel at 11:34 am. I spoke with Dr. Vogel at length about patient's presentation and recommended treatment. Psychiatry will continue to follow patient to monitor his mood, functioning, medication tolerance and adjustment to terminal diagnosis. Per Dr. Simon, psychiatric consultation was requested for "anxiety, potential denial in regards pathology report" however findings of metastatic cancer were never discussed with patient at time of my consultation. For the future: providers should not request a psychiatric consult regarding a patient's reaction to dire findings that have NOT BEEN DISCUSSED WITH PATIENT.
--- NOTE | 2017-08-17 12:00 | CP.PCM.PN ---
<Phong Simon - Last Filed: 08/17/17 11:50> Subjective - Date & Time of Evaluation Date of Evaluation: 08/17/17 Time of Evaluation: 09:45 - Subjective Subjective: Subjective: Patient seen and examined. Admits to having conversation with developmental mathematics professor/ oncologist and receiving update on his pathology report/prognosis. Requests family be contacted. Denies fever, chills, chest pain, nausea, vomiting, diarrhea, and urinary symptoms. 12-point review of systems negative except as indicated in the HPI Physical Examination: - Constitutional Appears: NAD - Head Exam Head Exam: ATRAUMATIC, NORMAL INSPECTION, NORMOCEPHALIC - Eye Exam Eye Exam: EOMI, Normal appearance, PERRL - ENT Exam ENT Exam: Mucous Membranes Moist, Normal Exam - Neck Exam Neck exam: Positive for: Normal Inspection - Respiratory Exam Respiratory Exam: NORMAL BREATHING PATTERN, CTA bilaterally - Cardiovascular Exam Cardiovascular Exam: +s1, +s2 - GI/Abdominal Exam GI & Abdominal Exam: no guarding, no rebound tenderness - Extremities Exam Extremities exam: Positive for: normal inspection - Neurological Exam Neurological exam: Alert, CN II-XII Intact, Normal Gait, Oriented x 3 Assessment and Plan: Patient is a 67 year old male with PMHx of Afib, Hep C, seizure, DVT, Diabetes who was admitted for evaluation and treatment for ED for evaluation and treatment of generalized weakness and fall. Generalized Weakness, Fall - likely secondary to poor PO intake - head CT- Stable unenhanced head CT with no suspicious interval findings. Age- related neuro degenerative changes are reiterated as well as a chronic lobar infarction left frontal lobe - CXR- No interval acute cardiopulmonary disease appreciated - neuro checks q4 - high risk fall precautions Adenocarcinoma of the Upper GI/Pancreatobiliary Origin; Abdominal Pain: - CT of abdomen/pelvis from 08/04/17: 1. Necrotic mass in the head of the pancreas with a diffuse and infiltrative component to adjacent lymph node chains extending to the katelyn hepatis. 2. Hepatic metastatic disease. 3. Intra-abdominal and pelvic ascites presumed to be malignant. - Hematology/oncology consulted- appreciate recommendations - previous admission- GI consulted- if pt is proceeding with possible treatment in the future will eventually need outp colonoscopy and EGD - previous admission- IR consulted for biopsy- biopsy performed on 08/06/2017- pathology report indicates adenocarcinoma of the upper GI/pancreatobiliary origin - reconsult heme/onc- Dr. Crowe- appreciate recommendations- prognosis is grave , life expectancy is less than 3 months, single agent chemotherapy vs palliative care - pain control with morphine - reconsult pysch- reevaluate for exacerbation of anxiety disorder in relation to his oncologic disease Atrial Flutter; Hx of Atrial fibrillation - EKG- atrial flutter with variable av block with premature ventricular or aberrantly conducted complexes HR 149, QTc 475 - c/w digoxin - as per cardiology cardizem 120mg daily and lopressor 50mg BID - c/w xarelto and aspirin - cardiac enzymes q6 x 3 - BNP elevated- ~4000s - cardiology consulted- appreciate recommendations Decreased Appetite - patient education provided on proper nutrient intake - encouraged increased PO intake - IVF NS @ 70 Hyperglycemia; Hx of IDDM2 - blood glucoses reviewed, trended, and appreciated- elevated - hold home metformin - ACHS - levemir 15 units bid - moderate carb controlled diet Hx of Seizure disorders - will continue with keppra 500 mg bid - Seizure and fall precaution Hx of CAD s/p CABG - continue with Lopressor - continue with Lipitor Hx of Peripheral neuropathy -continue with gabapentin Hx of Anxiety - continue xanax 0.5 mg bid prn Gait instability - high risk fall precautions - PT eval- appreciate input Constipation - c/w miralax and docusate Prophylaxis - DVT prophylaxis-c/w xarelto and SCDs in patient - GI prophylaxis - on protonix Patient seen, case discussed with, and plan approved by attending physician. Objective - Vital Signs/Intake and Output Vital Signs (last 24 hours): Temp Pulse Resp BP Pulse Ox 97.8 F 80 18 155/98 H 95 08/17/17 06:00 08/17/17 10:09 08/17/17 06:00 08/17/17 10:09 08/17/17 06:00 - Medications Medications: Current Medications Acetaminophen (Tylenol 325mg Tab) 650 mg PO Q4 PRN PRN Reason: Pain, moderate (4-7) Alprazolam (Xanax) 0.5 mg PO DAILY CM PRN Reason: Protocol Last Admin: 08/17/17 10:06 Dose: 0.5 mg Aspirin (Ecotrin) 81 mg PO DAILY [facility] Last Admin: 08/17/17 10:08 Dose: 81 mg Atorvastatin Calcium (Lipitor) 40 mg PO DIN [facility] Last Admin: 08/16/17 17:07 Dose: 40 mg Digoxin (Digoxin) 0.125 mg PO 1400 [facility] Last Admin: 08/16/17 13:35 Dose: 0.125 mg Diltiazem HCl (Cardizem Cd) 120 mg PO DAILY [facility] Last Admin: 08/17/17 10:08 Dose: 120 mg Docusate Sodium (Colace) 100 mg PO DAILY [facility] Last Admin: 08/17/17 10:06 Dose: 100 mg Gabapentin (Neurontin) 300 mg PO TID [facility] PRN Reason: Protocol Last Admin: 08/17/17 10:08 Dose: 300 mg Sodium Chloride (Sodium Chloride 0.9%) 1,000 mls @ 100 mls/hr IV .Q10H [facility] Last Admin: 08/15/17 17:15 Dose: 100 mls/hr Insulin Detemir (Levemir) 15 unit SC Q12 [facility] Last Admin: 08/17/17 10:07 Dose: 15 unit Insulin Human Lispro (Humalog High) 0 units SC ACHS [facility] PRN Reason: Protocol Last Admin: 08/17/17 08:43 Dose: 4 units Levetiracetam (Keppra) 500 mg PO Q12 [facility] Last Admin: 08/17/17 10:08 Dose: 500 mg Metoprolol Tartrate (Lopressor) 50 mg PO BID [facility] Last Admin: 08/17/17 10:09 Dose: 50 mg Metoprolol Tartrate (Lopressor) 5 mg IVP Q6H PRN PRN Reason: tachycardia > 120 Morphine Sulfate (Morphine Extended Release Tab) 15 mg PO Q12 [facility] Last Admin: 08/17/17 10:08 Dose: 15 mg Pantoprazole Sodium (Protonix Ec Tab) 40 mg PO 0600 [facility] Last Admin: 08/17/17 06:27 Dose: 40 mg Paroxetine HCl (Paxil) 10 mg PO HS [facility] Polyethylene Glycol (Miralax) 17 gm PO DAILY [facility] Last Admin: 08/17/17 10:07 Dose: 17 gm Rivaroxaban (Xarelto) 15 mg PO DAILY [facility] PRN Reason: Protocol Last Admin: 08/17/17 10:08 Dose: 15 mg Thiamine HCl (Vitamin B1 Tab) 100 mg PO DAILY [facility] Last Admin: 08/17/17 10:08 Dose: 100 mg - Labs Labs: 08/17/17 07:30 08/17/17 07:30 PT 13.9 SECONDS (9.4-12.5) H 08/15/17 17:22 INR 1.21 (0.93-1.08) H 08/15/17 17:22 APTT 32.4 Seconds (25.1-36.5) 08/15/17 17:22 <Melinda Cyr - Last Filed: 08/17/17 13:30> Objective - Vital Signs/Intake and Output Vital Signs (last 24 hours): Temp Pulse Resp BP Pulse Ox 97.8 F 80 18 155/98 H 95 08/17/17 06:00 08/17/17 10:09 08/17/17 06:00 08/17/17 10:09 08/17/17 06:00 - Medications Medications: Current Medications Acetaminophen (Tylenol 325mg Tab) 650 mg PO Q4 PRN PRN Reason: Pain, moderate (4-7) Alprazolam (Xanax) 0.5 mg PO DAILY [facility] PRN Reason: Protocol Last Admin: 08/17/17 10:06 Dose: 0.5 mg Aspirin (Ecotrin) 81 mg PO DAILY [facility] Last Admin: 08/17/17 10:08 Dose: 81 mg Atorvastatin Calcium (Lipitor) 40 mg PO DIN [facility] Last Admin: 08/16/17 17:07 Dose: 40 mg Digoxin (Digoxin) 0.125 mg PO 1400 [facility] Last Admin: 08/16/17 13:35 Dose: 0.125 mg Diltiazem HCl (Cardizem Cd) 120 mg PO DAILY [facility] Last Admin: 08/17/17 10:08 Dose: 120 mg Docusate Sodium (Colace) 100 mg PO DAILY [facility] Last Admin: 08/17/17 10:06 Dose: 100 mg Gabapentin (Neurontin) 300 mg PO TID [facility] PRN Reason: Protocol Last Admin: 08/17/17 10:08 Dose: 300 mg Sodium Chloride (Sodium Chloride 0.9%) 1,000 mls @ 70 mls/hr IV .[id number] [facility] Last Admin: 08/17/17 12:22 Dose: 70 mls/hr Insulin Detemir (Levemir) 15 unit SC Q12 [facility] Last Admin: 08/17/17 10:07 Dose: 15 unit Insulin Human Lispro (Humalog High) 0 units SC ACHS [facility] PRN Reason: Protocol Last Admin: 08/17/17 12:23 Dose: 4 units Levetiracetam (Keppra) 500 mg PO Q12 [facility] Last Admin: 08/17/17 10:08 Dose: 500 mg Metoprolol Tartrate (Lopressor) 50 mg PO BID [facility] Last Admin: 08/17/17 10:09 Dose: 50 mg Metoprolol Tartrate (Lopressor) 5 mg IVP Q6H PRN PRN Reason: tachycardia > 120 Morphine Sulfate (Morphine Extended Release Tab) 15 mg PO Q12 [facility] Last Admin: 08/17/17 10:08 Dose: 15 mg Pantoprazole Sodium (Protonix Ec Tab) 40 mg PO 0600 [facility] Last Admin: 08/17/17 06:27 Dose: 40 mg Paroxetine HCl (Paxil) 10 mg PO HS [facility] Polyethylene Glycol (Miralax) 17 gm PO DAILY [facility] Last Admin: 08/17/17 10:07 Dose: 17 gm Rivaroxaban (Xarelto) 15 mg PO DAILY [facility] PRN Reason: Protocol Last Admin: 08/17/17 10:08 Dose: 15 mg Thiamine HCl (Vitamin B1 Tab) 100 mg PO DAILY [facility] Last Admin: 08/17/17 10:08 Dose: 100 mg - Labs Labs: 08/17/17 07:30 08/17/17 07:30 PT 13.9 SECONDS (9.4-12.5) H 08/15/17 17:22 INR 1.21 (0.93-1.08) H 08/15/17 17:22 APTT 32.4 Seconds (25.1-36.5) 08/15/17 17:22 Attending/Attestation - Attestation I have personally seen and examined this patient.: Yes I have fully participated in the care of the patient.: Yes I have reviewed all pertinent clinical information, including history, physical exam and plan: Yes Notes (Text): I have seen and examined at bedside. Agree with the above note dictated by the resident. This is 67 year old male with history of Atrial fibrillation, Hep C, DM-2, seizures, recently diagnosed GI /hepatobiliary adenocarcinoma who was admitted after a fall and complains of being feeling weak. He signed AMA last time. Patient complains of mild abdominal pain and has low appetite. Today Dr Vogel discussed the pathology findings with him and recommended to talk to the family. He also has atrial fibrillation. Medications were adjusted. Continue aspirin and xeralto. Awaiting psych consult. PT radha requested. Upon discharge patient will follow up with Dr Khan.
[2017-08-17] MEDS: Sodium Chloride 0.9% 1,000 ML IV SCH (12:22)
[2017-08-17] MEDS: Digoxin 125 mcg (0.125 mg) Tab PO SCH (13:53)
--- NOTE | 2017-08-17 16:02 | PN ---
DATE: 08/17/2017 This is progress note for Dr. Crowe. SUBJECTIVE: Hector Camacho is a 67-year-old male with metastatic pancreatic cancer, core needle biopsy proven on specimen from the left lobe of the liver. I reviewed the patient's CAT scan with Dr. Melinda Cyr today and indeed there was a large mass in the head of the pancreas and infiltration of the left lobe of the liver with ascites. The patient was informed of his diagnosis and prognosis as well as his therapeutic versus palliative options in great detail. He was calm and wanted to know how long he had to live. My response was that it was likely measurable in months and far less than 1 year. Options discussed with Palliative Care at home and was continued outpatient followup as possible once he has demonstrated progress with physical therapy. He did state that he has been eating 75% of his meals and there was evidence that he has eaten a good deal of his breakfast when I sat with him today. Mr. Camacho states that he is comfortable and not having abdominal pain. He moves his bowels regular. He has had no vomiting and there remains to be no evidence of jaundice. PHYSICAL EXAMINATION: VITAL SIGNS: Temperature 97.8, pulse 80, blood pressure 155/98 at 6 a.m. of this morning, respiratory rate 18, O2 saturation 95%. GENERAL: The patient here was comfortable, awake, alert, oriented x3 and appropriate. HEENT: Sclerae anicteric. Conjunctivae pink. LUNGS: Clear. ABDOMEN: Positive fluid waves, nontender. CARDIAC: Regular rhythm. EXTREMITIES: No cyanosis, clubbing or edema. LABORATORY DATA: White count 6.6, hemoglobin 10.6, platelets 266,000, granulocytes 81.8. Coagulation from 08/15/2017 reveals INR 1.21, PTT normal. Chemistries: Abnormalities today is low creatinine 0.7, glucose 248, calcium 8.1, total protein 5.3, albumin 2.7, albumin-globulin ratio 1. Cholesterol 89, which is low and HDL low at 26. IMPRESSION: Mr. Camacho has been informed of his diagnosis and prognosis and therapeutic options limited to palliative care versus single agent chemotherapy if his performance status once evaluated proves better than 50% on the Karnofsky scale. I did tell him that his disease was incurable and that an attempt at chemotherapy at any point would require a good deal of time and effort related to visits with Oncology and that I was not sure that he was physically capable. of a vigorous schedule. My understanding is his gait is unsafe and he is at risk for falls. Mr Camacho only wants to speak with his daughter and is pre-occupied with doing so and not expressing interest in discussing a plan right now regarding his care. He had a good deal of interest in speaking with a nurse who has outpatient followup with him from the [facility] in [place], and he would want all of his care coordinated with her. I did make arrangements for our insurance case manager to reach out to the [place] nurse through Angie, the patient's nurse on the floor today. Angie SHIPLEY has also consulted the pillowcase cutter on the patient's request .I did locate the pillowcase cutter on the floor, who spoke with the patient immediately after I left the room. The patient has requested that his daughter be notified as soon as possible. Both VIOLETTA Adams, and I called the two phone numbers that were provided to us by the patient and in addition he asked us to reach out to a friend. Only his friends responded to the phone call. Neither of us spoke with him, only the patient and not I am not certain of the substance of that conversation. The patient was calm but rather emphatic that we locate his daughter today so that he could inform her of his diagnosis. The patient has history of anxiety, but he did ask me if I thought he was afraid to . My own impression was no, and I did tell him so. He wanted me to know he wasnt afraid. There was no suicidal ideation manifested. I reconsulted his psychiatric team. They wanted to be reconsulted when the patient was informed of any malignant diagnosis because he demonstrated anxiety the possibility of it, and we have thus obliged them. At this time, we are waiting for his daughter to the return the call and we will continue to make an effort to reach her at the patient's home where patient claim [facility] stays. The patient was told that if his ascites became symptomatic, that a fairly simple procedure could alleviate symptoms by paracentesis and this was explained to him in detail. Also he was informed that spot radiation therapy could alleviate focal pain should it evolve in any number of places not limited to the abdomen and thatsingle agent chemotherapy for palliation only, has a role in stage 4 disease as explained to him also in great detail. The patient was informed that the Medical/Oncology will follow up with him, with Dr. Crowe and Dr. Naresh Simon's team, and I asked the patient's nurse Angie to contact me if there were any issues today concerning the patient and his psychological state given the information he was given today as discussed above. We await psychiatry input. Harika Vogel MD MTDD
[2017-08-18 06:54] LABS: BASO # 0.01 K/mm3 (0.0-2.0); BASO % 0.1 % (0.0-3.0); EOS # 0.1 (0.0-0.7); EOS % 0.8 % (1.5-5.0); GRAN # 6.27 (1.4-6.5); GRAN % 79.5 % (50.0-68.0); HEMOGLOBIN 11.8 g/dL (14.0-18.0); LYMPH # 0.7 (1.2-3.4); LYMPH % 8.9 % (22.0-35.0); MEAN CELL VOLUME 87.1 fl (80.0-105.0); MEAN CORPUSCULAR HEMOGLOBIN 27.3 pg (25.0-35.0); MEAN CORPUSCULAR HGB CONC 31.3 g/dl (31.0-37.0); MEAN PLATELET VOLUME 10.8 fl (7.0-11.0); MONO # 0.8 (0.1-0.6); MONO % 10.7 % (1.0-6.0); RBC 4.33 10^6/uL (3.5-6.1); RED CELL DISTRIBUTION WIDTH 14.5 % (11.5-14.5); WHITE BLOOD COUNT 7.9 10^3/ul (4.5-11.0)
[2017-08-18 07:12] LABS: ALBUMIN 2.8 g/dL (3.0-4.8); ALT/SGPT 20 U/L (7-56); AST/SGOT 24 U/L (17-59); BLOOD UREA NITROGEN 18 mg/dL (7-21); CALCIUM 8.5 mg/dL (8.4-10.5); GFR AFRICAN-AMERICAN > 60; GFR NON-AFRICAN AMERICAN > 60
[2017-08-18] MEDS: Insulin Lispro (HUMAlog) HIGH Coverage SC SCH ×5 (07:54→22:00)
[2017-08-18] MEDS: Pantoprazole 40 mg EC Tab PO SCH (07:55)
[2017-08-18] MEDS: Sodium Chloride 0.9% 1,000 ML IV SCH (07:56)
--- NOTE | 2017-08-18 08:15 | PN ---
DATE: 08/17/2017 Addendum to the initial progress note dictated by our nurse practitioner. REASON FOR ADDENDUM: The patient wanted to be followed up in [facility]. Currently, asymptomatic. No chest pain. No shortness of breath. Continue current treatment. Upon discharge, the patient will be followed up in [facility] and followup workup. So far, no evidence of acute PA. We will sign off and glad to follow up p.r.n. The patient has a history of chronic A flutter, on Xarelto and rate is well controlled. We will follow with you. Continue metoprolol 50 b.i.d. We will increase Cardizem. Cardizem we also added 120 mg p.o. daily if stable. Upon discharge, the patient will follow up at . Thank you, Dr. Chou for providing us the opportunity in taking care of the patient, Doug. Lisa Kline MD
--- NOTE | 2017-08-18 08:36 | CON ---
DATE: 08/17/2017 HISTORY OF PRESENT ILLNESS: Patient is a 67-year-old white male with a history of depression, anxiety, no psychiatric admissions or suicide attempts, no current outpatient psychiatric treatment, who was admitted to medical floor from 08/06/2017 to 08/14/2017 for evaluation of abdominal pain and Psychiatry was called at that time because patient made one statement about possibility of hurting himself, pending the results of pathology at that time. Patient left AMA from this hospitalization; however, turned yesterday due to complaints of weakness and recent fall. Psychiatry was called again to evaluate patient. Of note, specific consultation request was noted by Alfred, as anxiety and potential denial in regard to pathology report. However, it appears that the consultation was actually called as patient's pathology and imaging results returned with a terminal diagnosis. Dr. Vogel wants to ensure that patient would continue to remain psychiatrically stable once learning . This information was not conveyed to the Psychiatry, so I visited the patient at bedside. Patient remembers me from our prior interview during his prior admission. I reviewed the circumstances of my followup with him today including what was written as reason for the consultation which is potential denial regarding his diagnosis as well as anxiety. Patient was quite surprised at my visit and he was immediately concerned because apparently primary team did not inform patient by the time of my visit of the results of his pathology and terminal diagnosis. This provider could not give this information to the patient and had to discuss and left in a difficult situation of evading such questions because communication regarding the purpose of consultation was not clearly defined. Regardless patient reports that he is functioning fine. He is consistent with what he reported to me last month. He has anxiety. He uses Xanax 1 to 2 times a day for anxiety. He denies overusing this medication. He reports that it is beneficial, but does report some forgetfulness with this medication. He is willing to try another medication for anxiety as he does not want to be completely dependant on Xanax. Regarding potential depression, he is a little bit reluctant to discuss whether he has these symptoms; however, he is open to trying Paxil, which can treat both depression and anxiety. I reviewed the indications, therapeutic latency of dosing, possible side effect to the patient today and he is agreeable to trial with his medication. Patient is not suicidal. He does not want to . I spoke with Dr. Vogel today at length regarding patient's diagnosis and his reaction to receiving the news of his terminal illness this morning after my visit with him, and patient appears to handle the news quite reasonably except for his acute anxiety about reaching his daughter. Patient did not make any comments about or killing himself, and appears to be motivated to prolong the extent of his life as comfortably as possible, and as long as possible in this respect. Regardless, patient appears to be consistent based on my interview with him this morning as well as interview with Dr. Vogel a few hours later. He does not pose an acute threat to self or others at this time based on his presentation with me this morning, and his presentation with me during his prior hospitalization last week, and as well as his reaction and presentation with Dr. Vogel during their interview later this morning. His insight and judgement are considered to be fair. Vitals signs and lab record were reviewed by this provider. RELEVANT PSYCHIATRIC MEDICATIONS: Include Xanax 0.5 mg p.o. daily. PSYCHIATRIC HISTORY: As noted from my consultation with patient on 08/10/2017, patient reported only one prior psychiatric followup a couple of years ago after he had open heart surgery. Probably he was having flashbacks of [place] which he participated in. Patient reports that he is currently being treated with Xanax taken one to twice a day by primary care doctor in the [place]. He does not recall ever being treated with an antidepressant. He denies any suicidal attempts in his history. He denies any current outpatient psychiatric treatment. SOCIAL HISTORY: Patient was born in [facility] and raised all over the [facility] because he was a child. Patient has been ; however, he has been for 35 years after his 35-year-old that suddenly of acute stroke. His children were [id number], less than 3-year-old and 4-1/2-year-old at that time, and he had raised them by himself. Patient lives with his 40-year-old daughter Ashok and has good relationship with her as well as his son Sha Chan, though apparently per conversation with Dr. Vogel, patient is estranged from one of his son. Patient does report that his daughter does have drug issues. He denies having any current drug or alcohol issues. Patient used to work in [employer] to [employer] Worry about losing his social security has prevented him from pursuing other works. Patient also reports that he was in the [place] War. IMPRESSION: Adjustment disorder with depression and anxiety, rule out major depression, rule out generalized anxiety, rule out depression due to general medical condition, specifically pancreatic cancer. Posttraumatic stress disorder by history. RECOMMENDATIONS: Patient has repeatedly and consistently indicated he has no intention of harming himself during multiple interviews with this provider. He is open to starting Paxil 10 mg at bedtime to treat anxiety and possible underlying depression. Would continue Xanax at current dose until Paxil become therapeutic. Psychiatry will continue to follow up with patient, monitor his adjustment to his terminal diagnosis and toleration to initiation of Paxil for current anxiety and possible mood symptoms. Paul Quarles MD
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
[2017-08-18] MEDS: diltiaZEM 120 mg/24 Hours CD Cap PO SCH (11:25)
[2017-08-18] MEDS: Insulin Detemir 100 units/ml Vial (Levemir) SC SCH ×2 (11:29→21:58)
[2017-08-18] MEDS: Morphine 15 mg SR Tab PO SCH ×2 (11:31→22:00)
[2017-08-18] MEDS: POLYETHYLENE GLYCOL 3350 17 GM/Dose PACKET PO SCH (11:31)
--- NOTE | 2017-08-18 12:38 | CP.PCM.PN ---
<Phong Simon - Last Filed: 08/18/17 12:31> Subjective - Date & Time of Evaluation Date of Evaluation: 08/18/17 Time of Evaluation: 11:00 - Subjective Subjective: Subjective: Patient seen and examined. No acute overnight events. States that abdominal pain has improved since baseline. Requests family be contacted. Denies fever, chills, chest pain, nausea, vomiting, diarrhea, and urinary symptoms. 12-point review of systems negative except as indicated in the HPI Physical Examination: - Constitutional Appears: NAD - Head Exam Head Exam: ATRAUMATIC, NORMAL INSPECTION, NORMOCEPHALIC - Eye Exam Eye Exam: EOMI, Normal appearance, PERRL - ENT Exam ENT Exam: Mucous Membranes Moist, Normal Exam - Neck Exam Neck exam: Positive for: Normal Inspection - Respiratory Exam Respiratory Exam: NORMAL BREATHING PATTERN, CTA bilaterally - Cardiovascular Exam Cardiovascular Exam: +s1, +s2 - GI/Abdominal Exam GI & Abdominal Exam: no guarding, no rebound tenderness - Extremities Exam Extremities exam: Positive for: normal inspection - Neurological Exam Neurological exam: Alert, CN II-XII Intact, Normal Gait, Oriented x 3 Assessment and Plan: Patient is a 67 year old male with PMHx of Afib, Hep C, seizure, DVT, Diabetes who was admitted for evaluation and treatment for ED for evaluation and treatment of generalized weakness and fall. Generalized Weakness, Fall - likely secondary to poor PO intake - head CT- Stable unenhanced head CT with no suspicious interval findings. Age- related neuro degenerative changes are reiterated as well as a chronic lobar infarction left frontal lobe - CXR- No interval acute cardiopulmonary disease appreciated - neuro checks q4 - high risk fall precautions - Pt consulted- appreciate recommendations Adenocarcinoma of the Upper GI/Pancreatobiliary Origin; Abdominal Pain: - CT of abdomen/pelvis from 08/04/17: 1. Necrotic mass in the head of the pancreas with a diffuse and infiltrative component to adjacent lymph node chains extending to the katelyn hepatis. 2. Hepatic metastatic disease. 3. Intra-abdominal and pelvic ascites presumed to be malignant. - Hematology/oncology consulted- appreciate recommendations - previous admission- GI consulted- if pt is proceeding with possible treatment in the future will eventually need outp colonoscopy and EGD - previous admission- IR consulted for biopsy- biopsy performed on 08/06/2017- pathology report indicates adenocarcinoma of the upper GI/pancreatobiliary origin - reconsult heme/onc- Dr. Crowe- appreciate recommendations- prognosis is grave , life expectancy is less than 3 months, single agent chemotherapy vs palliative care - pain control with morphine - reconsult pysch- reevaluate for exacerbation of anxiety disorder in relation to his oncologic disease Atrial Flutter; Hx of Atrial fibrillation - EKG- atrial flutter with variable av block with premature ventricular or aberrantly conducted complexes HR 149, QTc 475 - c/w digoxin - as per cardiology cardizem 120mg daily and lopressor 50mg BID- holding parameters added - c/w xarelto and aspirin - cardiac enzymes q6 x 3 - BNP elevated- ~4000s - cardiology consulted- appreciate recommendations Decreased Appetite - patient education provided on proper nutrient intake - encouraged increased PO intake - IVF NS @ 70 Hyperglycemia; Hx of IDDM2 - blood glucoses reviewed, trended, and appreciated- elevated - hold home metformin - ACHS - levemir 15 units bid - moderate carb controlled diet Hx of Seizure disorders - will continue with keppra 500 mg bid - Seizure and fall precaution Hx of CAD s/p CABG - continue with Lopressor - continue with Lipitor Hx of Peripheral neuropathy -continue with gabapentin Hx of Anxiety - continue xanax 0.5 mg bid prn Gait instability - high risk fall precautions - PT eval- appreciate input Constipation - c/w miralax and docusate Prophylaxis - DVT prophylaxis-c/w xarelto and SCDs in patient - GI prophylaxis - on protonix Patient seen, case discussed with, and plan approved by attending physician. Objective - Vital Signs/Intake and Output Vital Signs (last 24 hours): Temp Pulse Resp BP Pulse Ox 97.8 F 71 18 158/119 H 95 08/17/17 06:00 08/18/17 11:30 08/17/17 06:00 08/18/17 11:30 08/17/17 06:00 Intake and Output: 08/18/17 08/18/17 06:59 18:59 Intake Total 720 Output Total 550 Balance 170 - Medications Medications: Current Medications Acetaminophen (Tylenol 325mg Tab) 650 mg PO Q4 PRN PRN Reason: Pain, moderate (4-7) Alprazolam (Xanax) 0.5 mg PO DAILY [facility] PRN Reason: Protocol Last Admin: 08/18/17 11:36 Dose: 0.5 mg Aspirin (Ecotrin) 81 mg PO DAILY [facility] Last Admin: 08/18/17 11:29 Dose: 81 mg Atorvastatin Calcium (Lipitor) 40 mg PO DIN [facility] Last Admin: 08/17/17 17:44 Dose: 40 mg Digoxin (Digoxin) 0.125 mg PO 1400 [facility] Last Admin: 08/17/17 13:53 Dose: 0.125 mg Diltiazem HCl (Cardizem Cd) 120 mg PO DAILY [facility] Last Admin: 08/18/17 11:25 Dose: 120 mg Docusate Sodium (Colace) 100 mg PO DAILY [facility] Last Admin: 08/18/17 11:28 Dose: 100 mg Gabapentin (Neurontin) 300 mg PO TID [facility] PRN Reason: Protocol Last Admin: 08/18/17 11:31 Dose: 300 mg Sodium Chloride (Sodium Chloride 0.9%) 1,000 mls @ 70 mls/hr IV .[id number] [facility] Last Admin: 08/18/17 07:56 Dose: Not Given Insulin Detemir (Levemir) 15 unit SC Q12 [facility] Last Admin: 08/18/17 11:29 Dose: 15 unit Insulin Human Lispro (Humalog High) 0 units SC ACHS [facility] PRN Reason: Protocol Last Admin: 08/18/17 08:04 Dose: 1 units Levetiracetam (Keppra) 500 mg PO Q12 [facility] Last Admin: 08/18/17 11:29 Dose: 500 mg Metoprolol Tartrate (Lopressor) 5 mg IVP Q6H PRN PRN Reason: tachycardia > 120 Last Admin: 08/18/17 11:30 Dose: 5 mg Metoprolol Tartrate (Lopressor) 50 mg PO BID [facility] Last Admin: 08/18/17 11:36 Dose: 50 mg Morphine Sulfate (Morphine Extended Release Tab) 15 mg PO Q12 [facility] Last Admin: 08/18/17 11:31 Dose: 15 mg Pantoprazole Sodium (Protonix Ec Tab) 40 mg PO 0600 [facility] Last Admin: 08/18/17 07:55 Dose: 40 mg Paroxetine HCl (Paxil) 10 mg PO HS [facility] Last Admin: 08/17/17 21:09 Dose: 10 mg Polyethylene Glycol (Miralax) 17 gm PO DAILY [facility] Last Admin: 08/18/17 11:31 Dose: 17 gm Rivaroxaban (Xarelto) 15 mg PO DAILY [facility] PRN Reason: Protocol Last Admin: 08/18/17 11:32 Dose: 15 mg Thiamine HCl (Vitamin B1 Tab) 100 mg PO DAILY [facility] Last Admin: 08/18/17 11:36 Dose: 100 mg - Labs Labs: 08/18/17 05:45 08/18/17 05:45 PT 13.9 SECONDS (9.4-12.5) H 08/15/17 17:22 INR 1.21 (0.93-1.08) H 08/15/17 17:22 APTT 32.4 Seconds (25.1-36.5) 08/15/17 17:22 <Germain Tim - Last Filed: 08/18/17 17:16> Objective - Vital Signs/Intake and Output Vital Signs (last 24 hours): Temp Pulse Resp BP Pulse Ox 97.8 F 85 18 123/81 97 08/18/17 16:49 08/18/17 16:49 08/18/17 16:49 08/18/17 16:49 08/18/17 16:49 Intake and Output: 08/18/17 08/18/17 06:59 18:59 Intake Total 720 Output Total 550 Balance 170 - Medications Medications: Current Medications Acetaminophen (Tylenol 325mg Tab) 650 mg PO Q4 PRN PRN Reason: Pain, moderate (4-7) Alprazolam (Xanax) 0.5 mg PO DAILY [facility] PRN Reason: Protocol Last Admin: 08/18/17 11:36 Dose: 0.5 mg Aspirin (Ecotrin) 81 mg PO DAILY [facility] Last Admin: 08/18/17 11:29 Dose: 81 mg Atorvastatin Calcium (Lipitor) 40 mg PO DIN [facility] Last Admin: 08/17/17 17:44 Dose: 40 mg Digoxin (Digoxin) 0.125 mg PO 1400 [facility] Last Admin: 08/18/17 15:42 Dose: 0.125 mg Diltiazem HCl (Cardizem Cd) 120 mg PO DAILY [facility] Last Admin: 08/18/17 11:25 Dose: 120 mg Docusate Sodium (Colace) 100 mg PO DAILY [facility] Last Admin: 08/18/17 11:28 Dose: 100 mg Gabapentin (Neurontin) 300 mg PO TID [facility] PRN Reason: Protocol Last Admin: 08/18/17 15:42 Dose: 300 mg Sodium Chloride (Sodium Chloride 0.9%) 1,000 mls @ 70 mls/hr IV .[id number] [facility] Last Admin: 08/18/17 07:56 Dose: Not Given Insulin Detemir (Levemir) 15 unit SC Q12 [facility] Last Admin: 08/18/17 11:29 Dose: 15 unit Insulin Human Lispro (Humalog High) 0 units SC ACHS [facility] PRN Reason: Protocol Last Admin: 08/18/17 08:04 Dose: 1 units Levetiracetam (Keppra) 500 mg PO Q12 [facility] Last Admin: 08/18/17 11:29 Dose: 500 mg Metoprolol Tartrate (Lopressor) 5 mg IVP Q6H PRN PRN Reason: tachycardia > 120 Last Admin: 08/18/17 11:30 Dose: 5 mg Metoprolol Tartrate (Lopressor) 50 mg PO BID [facility] Last Admin: 08/18/17 11:36 Dose: 50 mg Morphine Sulfate (Morphine Extended Release Tab) 15 mg PO Q12 [facility] Last Admin: 08/18/17 11:31 Dose: 15 mg Pantoprazole Sodium (Protonix Ec Tab) 40 mg PO 0600 [facility] Last Admin: 08/18/17 07:55 Dose: 40 mg Paroxetine HCl (Paxil) 10 mg PO HS [facility] Last Admin: 08/17/17 21:09 Dose: 10 mg Polyethylene Glycol (Miralax) 17 gm PO DAILY [facility] Last Admin: 08/18/17 11:31 Dose: 17 gm Rivaroxaban (Xarelto) 15 mg PO DAILY [facility] PRN Reason: Protocol Last Admin: 08/18/17 11:32 Dose: 15 mg Thiamine HCl (Vitamin B1 Tab) 100 mg PO DAILY [facility] Last Admin: 08/18/17 11:36 Dose: 100 mg - Labs Labs: 08/18/17 05:45 08/18/17 05:45 PT 13.9 SECONDS (9.4-12.5) H 08/15/17 17:22 INR 1.21 (0.93-1.08) H 08/15/17 17:22 APTT 32.4 Seconds (25.1-36.5) 08/15/17 17:22 Attending/Attestation - Attestation I have personally seen and examined this patient.: Yes I have fully participated in the care of the patient.: Yes I have reviewed all pertinent clinical information, including history, physical exam and plan: Yes Notes (Text): 08/18/17 17:09 attending note; Patient seen and examined with resident. Patient is a 67 year old male with PMhx of Afib, Hep C, diabetes, seizure, Diabetes, recently diagnosed GI /hepatobiliary adenocarcinoma is admitted with fall . CT head is negative.Fall precautions ordered. A. fib; heart rate is controlled. Continue metoprolol,Cardizem and digoxin. discontinue telemetry. Continue aspirin and xeralto. Recently diagnosed GI/hepatobiliary adenocarcinoma. Patient is aware of the diagnosis now and accepted. Oncology evaluation appreciated. patient is willing to go through palliative Therapy. Anxiety;patient is on Xanax. Psychiatric evaluation appreciated. started on Paxil. diabetes; continue regular insulin sliding scale. PT evaluation appreciated. upon discharge [facility].
[2017-08-18] MEDS: Digoxin 125 mcg (0.125 mg) Tab PO SCH (15:42)
--- NOTE | 2017-08-18 16:01 | CARD ---
APPROVED REPORT EXAM: Two-dimensional and M-mode echocardiogram with Doppler and color Doppler. INDICATION LV Function:SystolicDiastolic Chest Pain 2D DIMENSIONS Left Atrium (2D)4.5 (1.6-4.0cm)IVSd1.5 (0.7-1.1cm) LVDd5.6 (3.9-5.9cm)PWd1.4 (0.7-1.1cm) LVDs4.3 (2.5-4.0cm)FS (%) 23.1 % LVEF (%)45.7 (>50%) M-Mode DIMENSIONS Aortic Root3.80 (2.2-3.7cm)Aortic Cusp Exc.1.50 (1.5-2.0cm) Aortic Valve AoV Peak Bsnwyjpe207.0cm/sAoV VTI25.5cmAO Peak GR.18mmHg LVOT Peak Orcarfma65.0cm/sLVOT VTI9.48cmAO Mean GR.8mmHg Mitral Valve E/A ratio0.0 TDI E/Lateral E'0.0E/Medial E'0.0 Tricuspid Valve TR Peak [id number] [id number] Peak Gr.22mmHg [id number] LEFT VENTRICLE The left ventricle is normal size. There is moderate concentric left ventricular hypertrophy. The systolic function is mildly impaired.EF-45% There is mild to moderate hypokinesis in the mid-anterolateral wall. a fib No left ventricle thrombus noted on this study. There is no ventricular septal defect visualized. There is no left ventricular aneurysm. There is no mass noted in the left ventricle. RIGHT VENTRICLE The right ventricle is normal size. There is normal right ventricular wall thickness. The right ventricular systolic function is normal. ATRIA The left atrium is moderately dilated. The right atrium size is normal. The interatrial septum is intact with no evidence for an atrial septal defect. AORTIC VALVE The aortic valve is calcified and displays decreased opening. There is mild aortic regurgitation. There is mild valvular aortic stenosis. There is no aortic valvular vegetation. MITRAL VALVE The mitral valve is mildly thickened. Mitral regurgitation is moderate. There is no mitral valve stenosis. There is no evidence of mitral valve prolapse. TRICUSPID VALVE The tricuspid valve leaflets are thickened , but open well. There is mild tricuspid regurgitation.RVSP-32 mmof Hg. There is no tricuspid valve stenosis. There is no tricuspid valve prolapse or vegetation. PULMONIC VALVE The pulmonic valve is not well visualized. GREAT VESSELS The aortic root is normal in size. The ascending aorta is normal in size. The pulmonary artery is normal. The IVC is normal in size and collapses >50% with inspiration. PERICARDIAL EFFUSION There is moderate to large left pleural effusion. There is no pericardial effusion. <Conclusion> The left ventricle is normal size. There is moderate concentric left ventricular hypertrophy. The systolic function is mildly impaired.EF-45% There is mild aortic regurgitation. There is mild valvular aortic stenosis. Mitral regurgitation is moderate. There is mild tricuspid regurgitation.RVSP-32 mmof Hg. There is no pericardial effusion. No Vegetation or thrombus noted.
--- NOTE | 2017-08-18 19:31 | PN ---
DATE: 08/18/2017 SUBJECTIVE: In short, the patient is a 67-year-old male with reported history of pancreatic cancer with metastasis to the liver which was newly diagnosed this admission. While discussing the potential diagnosis, patient made a comment that he wanted to harm himself in case of cancer. Patient's biopsy report showed that the patient has pancreatic cancer that is why the psychiatric team was involved. Patient was seen and examined. Previous notes are reviewed. Discussed with Dr. Quarles as well as Dr. Tim. Biopsy confirmed patient has adenocarcinoma. Patient was seen and examined today. Patient seems to have basic understanding of his diagnosis. Patient said, "medical team told me that I have tumor in my stomach." Patient reported that he wants all treatment possible in order to get better. Patient reported that he wants to have the surgery; he wants to continue all of the offered treatment. Patient adamantly denied being depressed. Patient wants to feel better and prolong his life as much as possible. Patient denied feeling anxious, denied any psychotic symptoms. Patient denied ever being depressed. Patient denied suicidal attempts in the past. Patient denied any family involved in his life. MEDICATIONS: Reviewed. Patient is on Xanax 0.5 mg daily, aspirin 81 mg daily, Lipitor, digoxin, Cardizem, Colace, gabapentin 300 mg three times day, Levemir, Humalog, Keppra 500 mg twice a day, Lopressor, morphine, Protonix, Paxil 10 mg at the nighttime, MiraLax, sodium chloride, thiamine as well as rivaroxaban. LABORATORY DATA: Reviewed. Hemoglobin and hematocrit 11.8 and 37.7. Coagulation reviewed. Blood gas reviewed. Chemistry reviewed. Toxicology reviewed. MENTAL STATUS EXAMINATION: As this science writer described above, patient is alert and oriented, pleasant, cooperative, denied being depressed, intermittent eye contact. Speech was somewhat monotonic. Thought process, coherent and goal directed. Thought content, patient denied visual, auditory, or tactile hallucinations. Denied paranoid ideation. Patient does not present to be psychotic or depressed. Insight and judgment seems to be improving. Impulses are well controlled. Patient adamantly denied thoughts of harming himself or others. IMPRESSION: Rule out adjustment disorder with depressed and anxious mood. Rule out mood disorder due to general medical condition, but patient adamantly denied being depressed. PLAN Continue current management. Continue current medications. Patient is not psychotic. Did not verbalize any thoughts of harming himself, wants to get better, wants to feel better. This science writer will sign off. Should you have any questions give me a call back. Patient is not on any imminent danger to self or others. Should you have any questions, give me a call back. Case took more than 30 minutes of this science writer's time. Discussed with the medical team in detail. Chula De La Garza MD
--- NOTE | 2017-08-18 20:09 | CARD ---
APPROVED REPORT EKG Measurement Heart [id number] <Conclusion> Atrial fibrillation ST & T wave abnormality, consider anterolateral ischemia or digitalis effect Abnormal ECG
[2017-08-19] MEDS: Sodium Chloride 0.9% 1,000 ML IV SCH (03:11)
[2017-08-19] MEDS: Pantoprazole 40 mg EC Tab PO SCH (05:31)
[2017-08-19 06:48] LABS: BASO # 0.01 K/mm3 (0.0-2.0); BASO % 0.1 % (0.0-3.0); EOS # 0.1 (0.0-0.7); EOS % 1.4 % (1.5-5.0); GRAN # 6.6 (1.4-6.5); GRAN % 82.4 % (50.0-68.0); HEMOGLOBIN 12.4 g/dL (14.0-18.0); LYMPH # 0.6 (1.2-3.4); LYMPH % 7.7 % (22.0-35.0); MEAN CELL VOLUME 87.4 fl (80.0-105.0); MEAN CORPUSCULAR HGB CONC 30.8 g/dl (31.0-37.0); MEAN PLATELET VOLUME 11.4 fl (7.0-11.0); MONO # 0.7 (0.1-0.6); MONO % 8.4 % (1.0-6.0); RBC 4.6 10^6/uL (3.5-6.1); RED CELL DISTRIBUTION WIDTH 14.6 % (11.5-14.5)
[2017-08-19 07:37] LABS: ALT/SGPT 15 U/L (7-56); AST/SGOT 25 U/L (17-59); BLOOD UREA NITROGEN 19 mg/dL (7-21); CALCIUM 8.7 mg/dL (8.4-10.5); GFR AFRICAN-AMERICAN > 60; GFR NON-AFRICAN AMERICAN > 60
[2017-08-19] MEDS: Insulin Lispro (HUMAlog) HIGH Coverage SC SCH ×4 (07:44→22:09)
[2017-08-19] MEDS: POLYETHYLENE GLYCOL 3350 17 GM/Dose PACKET PO SCH (09:31)
[2017-08-19] MEDS: Insulin Detemir 100 units/ml Vial (Levemir) SC SCH ×2 (09:31→22:50)
[2017-08-19] MEDS: diltiaZEM 120 mg/24 Hours CD Cap PO SCH (09:31)
[2017-08-19] MEDS: Morphine 15 mg SR Tab PO SCH ×2 (09:32→22:08)
--- NOTE | 2017-08-19 09:56 | CP.PCM.PN ---
<Phong Simon - Last Filed: 08/19/17 09:38> Subjective - Date & Time of Evaluation Date of Evaluation: 08/19/17 Time of Evaluation: 07:15 - Subjective Subjective: Subjective: Patient seen and examined. No acute overnight events. Reconfirms desire to recieve treatment for recent cancer diagnosis. States that abdominal pain has improved since baseline. Denies fever, chills, chest pain, nausea, vomiting, diarrhea, and urinary symptoms. 12-point review of systems negative except as indicated in the HPI Physical Examination: - Constitutional Appears: NAD - Head Exam Head Exam: ATRAUMATIC, NORMAL INSPECTION, NORMOCEPHALIC - Eye Exam Eye Exam: EOMI, Normal appearance, PERRL - ENT Exam ENT Exam: Mucous Membranes Moist, Normal Exam - Neck Exam Neck exam: Positive for: Normal Inspection - Respiratory Exam Respiratory Exam: NORMAL BREATHING PATTERN, CTA bilaterally - Cardiovascular Exam Cardiovascular Exam: +s1, +s2 - GI/Abdominal Exam GI & Abdominal Exam: no guarding, no rebound tenderness - Extremities Exam Extremities exam: Positive for: normal inspection - Neurological Exam Neurological exam: Alert, CN II-XII Intact, Normal Gait, Oriented x 3 Assessment and Plan: Patient is a 67 year old male with PMHx of Afib, Hep C, seizure, DVT, Diabetes who was admitted for evaluation and treatment for ED for evaluation and treatment of generalized weakness and fall. Generalized Weakness, Fall - likely secondary to poor PO intake - head CT- Stable unenhanced head CT with no suspicious interval findings. Age- related neuro degenerative changes, chronic lobar infarction left frontal lobe - CXR- No interval acute cardiopulmonary disease appreciated - high risk fall precautions - Pt consulted- appreciate recommendations- home with services Adenocarcinoma of the Upper GI/Pancreatobiliary Origin; Abdominal Pain: - CT of abdomen/pelvis from 08/04/17: 1. Necrotic mass in the head of the pancreas with a diffuse and infiltrative component to adjacent lymph node chains extending to the katelyn hepatis. 2. Hepatic metastatic disease. 3. Intra-abdominal and pelvic ascites presumed to be malignant. - Hematology/oncology consulted- appreciate recommendations - previous admission- GI consulted- if pt is proceeding with possible treatment in the future will eventually need outp colonoscopy and EGD - previous admission- IR consulted for biopsy- biopsy performed on 08/06/2017- pathology report indicates adenocarcinoma of the upper GI/pancreatobiliary origin - reconsult heme/onc- Dr. Crowe- appreciate recommendations- prognosis is grave , life expectancy is less than 3 months, single agent chemotherapy vs palliative care - pain control with morphine - reconsult pysch- appreciate recommendations- rule out adjustment disorder, continue current management, not imminent danger to self or others Atrial Flutter; Hx of Atrial fibrillation - EKG- atrial flutter with variable av block with premature ventricular or aberrantly conducted complexes HR 149, QTc 475 - hold xarelto and aspirin as patient will tentatively have port cath placed in next 1-2 days - cardiology consulted- appreciate recommendations cardizem 120mg daily and lopressor 50mg BID- holding parameters added, c/w digoxin Decreased Appetite - patient education provided on proper nutrient intake - encouraged increased PO intake - dc IVF Hyperglycemia; Hx of IDDM2 - blood glucoses reviewed, trended, and appreciated- elevated - hold home metformin - ACHS - levemir 15 units bid - moderate carb controlled diet Hx of Seizure disorders - will continue with keppra 500 mg bid - Seizure and fall precaution Hx of CAD s/p CABG - continue with Lopressor - continue with Lipitor Hx of Peripheral neuropathy -continue with gabapentin Hx of Anxiety - continue xanax 0.5 mg bid prn Gait instability - high risk fall precautions - PT eval- appreciate input Constipation - c/w miralax and docusate Prophylaxis - DVT prophylaxis- SCDs in patient - GI prophylaxis - on protonix Patient seen, case discussed with, and plan approved by attending physician. Objective - Vital Signs/Intake and Output Vital Signs (last 24 hours): Temp Pulse Resp BP Pulse Ox 98.1 F 66 16 119/89 97 08/19/17 09:08 08/19/17 09:08 08/19/17 09:08 08/19/17 09:08 08/19/17 09:08 Intake and Output: 08/19/17 08/19/17 06:59 18:59 Intake Total 2340 Output Total 2100 Balance 240 - Medications Medications: Current Medications Acetaminophen (Tylenol 325mg Tab) 650 mg PO Q4 PRN PRN Reason: Pain, moderate (4-7) Alprazolam (Xanax) 0.5 mg PO DAILY CM PRN Reason: Protocol Last Admin: 08/18/17 11:36 Dose: 0.5 mg Aspirin (Ecotrin) 81 mg PO DAILY [facility] Last Admin: 08/18/17 11:29 Dose: 81 mg Atorvastatin Calcium (Lipitor) 40 mg PO DIN [facility] Last Admin: 08/18/17 19:33 Dose: 40 mg Digoxin (Digoxin) 0.125 mg PO 1400 [facility] Last Admin: 08/18/17 15:42 Dose: 0.125 mg Diltiazem HCl (Cardizem Cd) 120 mg PO DAILY [facility] Last Admin: 08/18/17 11:25 Dose: 120 mg Docusate Sodium (Colace) 100 mg PO DAILY [facility] Last Admin: 08/18/17 11:28 Dose: 100 mg Gabapentin (Neurontin) 300 mg PO TID [facility] PRN Reason: Protocol Last Admin: 08/18/17 19:33 Dose: 300 mg Sodium Chloride (Sodium Chloride 0.9%) 1,000 mls @ 70 mls/hr IV .[id number] [facility] Last Admin: 08/19/17 03:11 Dose: 70 mls/hr Insulin Detemir (Levemir) 15 unit SC Q12 [facility] Last Admin: 08/18/17 21:58 Dose: 15 unit Insulin Human Lispro (Humalog High) 0 units SC ACHS [facility] PRN Reason: Protocol Last Admin: 08/19/17 07:44 Dose: Not Given Levetiracetam (Keppra) 500 mg PO Q12 [facility] Last Admin: 08/18/17 21:58 Dose: 500 mg Metoprolol Tartrate (Lopressor) 5 mg IVP Q6H PRN PRN Reason: tachycardia > 120 Last Admin: 08/18/17 11:30 Dose: 5 mg Metoprolol Tartrate (Lopressor) 50 mg PO BID [facility] Last Admin: 08/18/17 19:33 Dose: Not Given Morphine Sulfate (Morphine Extended Release Tab) 15 mg PO Q12 [facility] Last Admin: 08/18/17 22:00 Dose: Not Given Pantoprazole Sodium (Protonix Ec Tab) 40 mg PO 0600 [facility] Last Admin: 08/19/17 05:31 Dose: 40 mg Paroxetine HCl (Paxil) 10 mg PO HS [facility] Last Admin: 08/18/17 21:58 Dose: 10 mg Polyethylene Glycol (Miralax) 17 gm PO DAILY [facility] Last Admin: 08/18/17 11:31 Dose: 17 gm Rivaroxaban (Xarelto) 15 mg PO DAILY [facility] PRN Reason: Protocol Last Admin: 08/18/17 11:32 Dose: 15 mg Thiamine HCl (Vitamin B1 Tab) 100 mg PO DAILY [facility] Last Admin: 08/18/17 11:36 Dose: 100 mg - Labs Labs: 08/19/17 06:00 08/19/17 06:00 PT 13.9 SECONDS (9.4-12.5) H 08/15/17 17:22 INR 1.21 (0.93-1.08) H 08/15/17 17:22 APTT 32.4 Seconds (25.1-36.5) 08/15/17 17:22 <Germain Tim - Last Filed: 08/19/17 15:17> Objective - Vital Signs/Intake and Output Vital Signs (last 24 hours): Temp Pulse Resp BP Pulse Ox 98.1 F 66 16 119/89 97 08/19/17 09:08 08/19/17 09:32 08/19/17 09:08 08/19/17 09:31 08/19/17 09:08 Intake and Output: 08/19/17 08/19/17 06:59 18:59 Intake Total 2340 Output Total 2100 Balance 240 - Medications Medications: Current Medications Acetaminophen (Tylenol 325mg Tab) 650 mg PO Q4 PRN PRN Reason: Pain, moderate (4-7) Alprazolam (Xanax) 0.5 mg PO DAILY [facility] PRN Reason: Protocol Last Admin: 08/19/17 09:32 Dose: 0.5 mg Aspirin (Ecotrin) 81 mg PO DAILY [facility] Last Admin: 08/18/17 11:29 Dose: 81 mg Atorvastatin Calcium (Lipitor) 40 mg PO DIN [facility] Last Admin: 08/18/17 19:33 Dose: 40 mg Digoxin (Digoxin) 0.125 mg PO 1400 [facility] Last Admin: 08/19/17 14:05 Dose: 0.125 mg Diltiazem HCl (Cardizem Cd) 120 mg PO DAILY [facility] Last Admin: 08/19/17 09:31 Dose: Not Given Docusate Sodium (Colace) 100 mg PO DAILY [facility] Last Admin: 08/19/17 09:32 Dose: 100 mg Gabapentin (Neurontin) 300 mg PO TID [facility] PRN Reason: Protocol Last Admin: 08/19/17 14:05 Dose: 300 mg Insulin Detemir (Levemir) 15 unit SC Q12 [facility] Last Admin: 08/19/17 09:31 Dose: 15 unit Insulin Human Lispro (Humalog High) 0 units SC ACHS [facility] PRN Reason: Protocol Last Admin: 08/19/17 11:39 Dose: Not Given Levetiracetam (Keppra) 500 mg PO Q12 [facility] Last Admin: 08/19/17 09:31 Dose: 500 mg Metoprolol Tartrate (Lopressor) 5 mg IVP Q6H PRN PRN Reason: tachycardia > 120 Last Admin: 08/18/17 11:30 Dose: 5 mg Metoprolol Tartrate (Lopressor) 50 mg PO BID [facility] Last Admin: 08/19/17 09:32 Dose: 50 mg Morphine Sulfate (Morphine Extended Release Tab) 15 mg PO Q12 [facility] Last Admin: 08/19/17 09:32 Dose: 15 mg Pantoprazole Sodium (Protonix Ec Tab) 40 mg PO 0600 [facility] Last Admin: 08/19/17 05:31 Dose: 40 mg Paroxetine HCl (Paxil) 10 mg PO HS [facility] Last Admin: 08/18/17 21:58 Dose: 10 mg Polyethylene Glycol (Miralax) 17 gm PO DAILY [facility] Last Admin: 08/19/17 09:31 Dose: 17 gm Thiamine HCl (Vitamin B1 Tab) 100 mg PO DAILY [facility] Last Admin: 08/19/17 09:31 Dose: 100 mg - Labs Labs: 08/19/17 06:00 08/19/17 06:00 PT 13.9 SECONDS (9.4-12.5) H 08/15/17 17:22 INR 1.21 (0.93-1.08) H 08/15/17 17:22 APTT 32.4 Seconds (25.1-36.5) 08/15/17 17:22 Attending/Attestation - Attestation I have personally seen and examined this patient.: Yes I have fully participated in the care of the patient.: Yes I have reviewed all pertinent clinical information, including history, physical exam and plan: Yes Notes (Text): 08/19/17 15:05 attending note; Patient seen and examined with resident. Patient is a 67 year old male with PMhx of Afib, Hep C, diabetes, seizure, Diabetes, recently diagnosed GI /hepatobiliary adenocarcinoma is admitted with fall . CT head is negative.Fall precautions ordered. A. fib; heart rate is controlled. Continue metoprolol,Cardizem and digoxin. Continue aspirin and hold xeralto for katelyn cath placement tomorrow. Recently diagnosed GI/hepatobiliary adenocarcinoma. Patient is aware of the diagnosis now and accepted. Oncology evaluation appreciated. patient is willing to go through palliative Therapy. case discussed with oncology in detail. agreed with Port-A-Cath placement. Anxiety;patient is on Xanax. Psychiatric evaluation appreciated. started on Paxil. diabetes; continue regular insulin sliding scale and Levemir. PT evaluation appreciated. upon discharge the patient will follow up with [facility].
[2017-08-19] MEDS: Digoxin 125 mcg (0.125 mg) Tab PO SCH (14:05)
[2017-08-20] MEDS: Pantoprazole 40 mg EC Tab PO SCH (05:27)
[2017-08-20 06:38] LABS: BASO # 0.01 K/mm3 (0.0-2.0); BASO % 0.1 % (0.0-3.0); EOS # 0.1 (0.0-0.7); EOS % 1.5 % (1.5-5.0); GRAN # 6.56 (1.4-6.5); GRAN % 81.3 % (50.0-68.0); HEMOGLOBIN 12.7 g/dL (14.0-18.0); LYMPH # 0.7 (1.2-3.4); LYMPH % 8.7 % (22.0-35.0); MEAN CELL VOLUME 87.3 fl (80.0-105.0); MEAN CORPUSCULAR HEMOGLOBIN 27.3 pg (25.0-35.0); MEAN CORPUSCULAR HGB CONC 31.3 g/dl (31.0-37.0); MONO # 0.7 (0.1-0.6); MONO % 8.4 % (1.0-6.0); RBC 4.65 10^6/uL (3.5-6.1); RED CELL DISTRIBUTION WIDTH 14.5 % (11.5-14.5); WHITE BLOOD COUNT 8.1 10^3/ul (4.5-11.0)
[2017-08-20 07:09] LABS: ALBUMIN 3.1 g/dL (3.0-4.8); ALT/SGPT 22 U/L (7-56); AST/SGOT 26 U/L (17-59); BLOOD UREA NITROGEN 19 mg/dL (7-21); CALCIUM 8.8 mg/dL (8.4-10.5); GFR AFRICAN-AMERICAN > 60; GFR NON-AFRICAN AMERICAN > 60
--- NOTE | 2017-08-20 09:24 | CP.PCM.PN ---
Subjective - Date & Time of Evaluation Date of Evaluation: 08/19/17 Time of Evaluation: 13:00 - Subjective Subjective: Alert, offers no complaints Objective - Vital Signs/Intake and Output Vital Signs (last 24 hours): Temp Pulse Resp BP Pulse Ox 97.9 F 65 20 148/76 99 08/20/17 08:24 08/20/17 08:24 08/20/17 08:24 08/20/17 08:24 08/20/17 08:24 Intake and Output: 08/20/17 08/20/17 06:59 18:59 Intake Total 660 Output Total 575 Balance 85 - Medications Medications: Current Medications Acetaminophen (Tylenol 325mg Tab) 650 mg PO Q4 PRN PRN Reason: Pain, moderate (4-7) Last Admin: 08/19/17 17:37 Dose: 650 mg Alprazolam (Xanax) 0.5 mg PO DAILY [facility] PRN Reason: Protocol Last Admin: 08/19/17 09:32 Dose: 0.5 mg Aspirin (Ecotrin) 81 mg PO DAILY [facility] Last Admin: 08/18/17 11:29 Dose: 81 mg Atorvastatin Calcium (Lipitor) 40 mg PO DIN [facility] Last Admin: 08/19/17 17:37 Dose: 40 mg Digoxin (Digoxin) 0.125 mg PO 1400 [facility] Last Admin: 08/19/17 14:05 Dose: 0.125 mg Diltiazem HCl (Cardizem Cd) 120 mg PO DAILY [facility] Last Admin: 08/19/17 09:31 Dose: Not Given Docusate Sodium (Colace) 100 mg PO DAILY [facility] Last Admin: 08/19/17 09:32 Dose: 100 mg Gabapentin (Neurontin) 300 mg PO TID [facility] PRN Reason: Protocol Last Admin: 08/19/17 17:37 Dose: 300 mg Insulin Detemir (Levemir) 15 unit SC Q12 [facility] Last Admin: 08/19/17 22:50 Dose: Not Given Insulin Human Lispro (Humalog High) 0 units SC ACHS [facility] PRN Reason: Protocol Last Admin: 08/19/17 22:09 Dose: Not Given Levetiracetam (Keppra) 500 mg PO Q12 [facility] Last Admin: 08/19/17 22:08 Dose: 500 mg Metoprolol Tartrate (Lopressor) 5 mg IVP Q6H PRN PRN Reason: tachycardia > 120 Last Admin: 08/18/17 11:30 Dose: 5 mg Metoprolol Tartrate (Lopressor) 50 mg PO BID [facility] Last Admin: 08/19/17 17:37 Dose: 50 mg Morphine Sulfate (Morphine Extended Release Tab) 15 mg PO Q12 [facility] Last Admin: 08/19/17 22:08 Dose: 15 mg Pantoprazole Sodium (Protonix Ec Tab) 40 mg PO 0600 [facility] Last Admin: 08/20/17 05:27 Dose: 40 mg Paroxetine HCl (Paxil) 10 mg PO HS [facility] Last Admin: 08/19/17 22:08 Dose: 10 mg Polyethylene Glycol (Miralax) 17 gm PO DAILY [facility] Last Admin: 08/19/17 09:31 Dose: 17 gm Thiamine HCl (Vitamin B1 Tab) 100 mg PO DAILY [facility] Last Admin: 08/19/17 09:31 Dose: 100 mg - Labs Labs: 08/20/17 06:15 08/20/17 06:15 PT 13.9 SECONDS (9.4-12.5) H 08/15/17 17:22 INR 1.21 (0.93-1.08) H 08/15/17 17:22 APTT 32.4 Seconds (25.1-36.5) 08/15/17 17:22 - Constitutional Appears: Chronically Ill - Head Exam Head Exam: NORMOCEPHALIC - Eye Exam Eye Exam: Normal appearance, PERRL - ENT Exam ENT Exam: Mucous Membranes Moist, Normal Oropharynx - Respiratory Exam Respiratory Exam: Clear to Ausculation Bilateral, NORMAL BREATHING PATTERN - Cardiovascular Exam Cardiovascular Exam: REGULAR RHYTHM, +S1, +S2 - GI/Abdominal Exam GI & Abdominal Exam: Distended, Soft, Normal Bowel Sounds - Extremities Exam Extremities Exam: Normal Capillary Refill, Normal Inspection - Neurological Exam Neurological Exam: Alert, Oriented x3 - Skin Skin Exam: Warm Assessment and Plan - Assessment and Plan (Free Text) Assessment: 67 year old male with history of pancreatic cancer,ascites who was admitted with weakness, ascites and gait instability Sue BUENROSTRO met with patient to discuss goals of care and nominating a health care proxy. The patient reaffirmed that he wishes to seek treatment of his cancer. The patient is considering returning to the [facility] for his medial care. The patient does not want his children to make medical or financial decisions. The patient insisted on nominating his catalytic case operator at the CT, Karyn Wilkerson. We explained that this was not permissible. We then spoke with Karyn via speaker phone. Karyn explained to the patient that she this was a conflict of interest and that she could not be his POA. It was dtermeiend that patients. Time spent with patient in goals of care and advance care planning, 30 minutes Plan: Goals of care and advance care planning
[2017-08-20] MEDS: diltiaZEM 120 mg/24 Hours CD Cap PO SCH (09:55)
[2017-08-20] MEDS: Insulin Lispro (HUMAlog) HIGH Coverage SC SCH ×3 (09:55→21:59)
[2017-08-20] MEDS: POLYETHYLENE GLYCOL 3350 17 GM/Dose PACKET PO SCH (09:56)
[2017-08-20] MEDS: Insulin Detemir 100 units/ml Vial (Levemir) SC SCH ×2 (09:56→21:58)
[2017-08-20] MEDS: Morphine 15 mg SR Tab PO SCH ×2 (09:58→21:58)
[2017-08-20] MEDS ORDERED: Lidocaine 2% Inj (20ml) ONE (12:27)
[2017-08-20] MEDS ORDERED: Iodixanol 320 MG/ML 100 ML BOTTLE IV ONE (12:29)
--- NOTE | 2017-08-20 13:02 | CP.PCM.PN ---
<Phong Simon - Last Filed: 08/20/17 12:55> Subjective - Date & Time of Evaluation Date of Evaluation: 08/20/17 Time of Evaluation: 11:45 - Subjective Subjective: Subjective: Patient seen and examined. No acute overnight events. States that abdominal pain has improved since baseline. Informed of potential chemotherapy treatment at [place]. Denies fever, chills, chest pain, nausea, vomiting, diarrhea, and urinary symptoms. 12-point review of systems negative except as indicated in the HPI Physical Examination: - Constitutional Appears: NAD - Head Exam Head Exam: ATRAUMATIC, NORMAL INSPECTION, NORMOCEPHALIC - Eye Exam Eye Exam: EOMI, Normal appearance, PERRL - ENT Exam ENT Exam: Mucous Membranes Moist, Normal Exam - Neck Exam Neck exam: Positive for: Normal Inspection - Respiratory Exam Respiratory Exam: NORMAL BREATHING PATTERN, CTA bilaterally - Cardiovascular Exam Cardiovascular Exam: +s1, +s2 - GI/Abdominal Exam GI & Abdominal Exam: no guarding, no rebound tenderness - Extremities Exam Extremities exam: Positive for: normal inspection - Neurological Exam Neurological exam: Alert, CN II-XII Intact, Normal Gait, Oriented x 3 Assessment and Plan: Patient is a 67 year old male with PMHx of Afib, Hep C, seizure, DVT, Diabetes who was admitted for evaluation and treatment for ED for evaluation and treatment of generalized weakness and fall. Generalized Weakness, Fall - likely secondary to poor PO intake - head CT- Stable unenhanced head CT with no suspicious interval findings. Age- related neuro degenerative changes, chronic lobar infarction left frontal lobe - CXR- No interval acute cardiopulmonary disease appreciated - high risk fall precautions - Pt consulted- appreciate recommendations- home with services Adenocarcinoma of the Upper GI/Pancreatobiliary Origin; Abdominal Pain: - CT of abdomen/pelvis from 08/04/17: 1. Necrotic mass in the head of the pancreas with a diffuse and infiltrative component to adjacent lymph node chains extending to the katelyn hepatis. 2. Hepatic metastatic disease. 3. Intra-abdominal and pelvic ascites presumed to be malignant. - Hematology/oncology consulted- appreciate recommendations - previous admission- GI consulted- if pt is proceeding with possible treatment in the future will eventually need outp colonoscopy and EGD - previous admission- IR consulted for biopsy- biopsy performed on 08/06/2017- pathology report indicates adenocarcinoma of the upper GI/pancreatobiliary origin - reconsult heme/onc- Dr. Crowe- appreciate recommendations- prognosis is grave , life expectancy is less than 3 months, single agent chemotherapy vs palliative care - pain control with morphine - reconsult pysch- appreciate recommendations- rule out adjustment disorder, continue current management, not imminent danger to self or others - IR consult- 08/20/17 port cath placement today Atrial Flutter; Hx of Atrial fibrillation - EKG- atrial flutter with variable av block with premature ventricular or aberrantly conducted complexes HR 149, QTc 475 - hold xarelto and aspirin as patient will tentatively have port cath placed in next 1-2 days - cardiology consulted- appreciate recommendations cardizem 120mg daily and lopressor 50mg BID- holding parameters added, c/w digoxin Decreased Appetite - patient education provided on proper nutrient intake - encouraged increased PO intake - dc IVF Hyperglycemia; Hx of IDDM2 - blood glucoses reviewed, trended, and appreciated- elevated - hold home metformin - ACHS - levemir 15 units bid - moderate carb controlled diet Hx of Seizure disorders - will continue with keppra 500 mg bid - Seizure and fall precaution Hx of CAD s/p CABG - continue with Lopressor - continue with Lipitor Hx of Peripheral neuropathy -continue with gabapentin Hx of Anxiety - continue xanax 0.5 mg bid prn Gait instability - high risk fall precautions - PT eval- appreciate input Constipation - c/w miralax and docusate Prophylaxis - DVT prophylaxis- SCDs in patient - GI prophylaxis - on protonix Patient seen, case discussed with, and plan approved by attending physician. Objective - Vital Signs/Intake and Output Vital Signs (last 24 hours): Temp Pulse Resp BP Pulse Ox 97.9 F 65 20 148/76 99 08/20/17 08:24 08/20/17 08:24 08/20/17 08:24 08/20/17 08:24 08/20/17 08:24 Intake and Output: 08/20/17 08/20/17 06:59 18:59 Intake Total 660 Output Total 575 Balance 85 - Medications Medications: Current Medications Acetaminophen (Tylenol 325mg Tab) 650 mg PO Q4 PRN PRN Reason: Pain, moderate (4-7) Last Admin: 08/19/17 17:37 Dose: 650 mg Alprazolam (Xanax) 0.5 mg PO DAILY CM PRN Reason: Protocol Last Admin: 08/20/17 09:59 Dose: 0.5 mg Aspirin (Ecotrin) 81 mg PO DAILY [facility] Last Admin: 08/20/17 09:55 Dose: 81 mg Atorvastatin Calcium (Lipitor) 40 mg PO DIN [facility] Last Admin: 08/19/17 17:37 Dose: 40 mg Digoxin (Digoxin) 0.125 mg PO 1400 [facility] Last Admin: 08/19/17 14:05 Dose: 0.125 mg Diltiazem HCl (Cardizem Cd) 120 mg PO DAILY [facility] Last Admin: 08/20/17 09:55 Dose: 120 mg Docusate Sodium (Colace) 100 mg PO DAILY [facility] Last Admin: 08/20/17 09:55 Dose: 100 mg Gabapentin (Neurontin) 300 mg PO TID [facility] PRN Reason: Protocol Last Admin: 08/20/17 09:59 Dose: 300 mg Insulin Detemir (Levemir) 15 unit SC Q12 [facility] Last Admin: 08/20/17 09:56 Dose: Not Given Insulin Human Lispro (Humalog High) 0 units SC ACHS [facility] PRN Reason: Protocol Last Admin: 08/20/17 09:55 Dose: Not Given Levetiracetam (Keppra) 500 mg PO Q12 [facility] Last Admin: 08/20/17 09:56 Dose: 500 mg Metoprolol Tartrate (Lopressor) 5 mg IVP Q6H PRN PRN Reason: tachycardia > 120 Last Admin: 08/18/17 11:30 Dose: 5 mg Metoprolol Tartrate (Lopressor) 50 mg PO BID [facility] Last Admin: 08/20/17 09:56 Dose: 50 mg Morphine Sulfate (Morphine Extended Release Tab) 15 mg PO Q12 [facility] Last Admin: 08/20/17 09:58 Dose: 15 mg Pantoprazole Sodium (Protonix Ec Tab) 40 mg PO 0600 [facility] Last Admin: 08/20/17 05:27 Dose: 40 mg Paroxetine HCl (Paxil) 10 mg PO HS [facility] Last Admin: 08/19/17 22:08 Dose: 10 mg Polyethylene Glycol (Miralax) 17 gm PO DAILY [facility] Last Admin: 08/20/17 09:56 Dose: 17 gm Thiamine HCl (Vitamin B1 Tab) 100 mg PO DAILY [facility] Last Admin: 08/20/17 09:59 Dose: 100 mg - Labs Labs: 08/20/17 06:15 08/20/17 06:15 PT 13.9 SECONDS (9.4-12.5) H 08/15/17 17:22 INR 1.21 (0.93-1.08) H 08/15/17 17:22 APTT 32.4 Seconds (25.1-36.5) 08/15/17 17:22 <Germain Tim - Last Filed: 08/20/17 16:43> Objective - Vital Signs/Intake and Output Vital Signs (last 24 hours): Temp Pulse Resp BP Pulse Ox 98 F 72 18 136/80 98 08/20/17 16:07 08/20/17 16:07 08/20/17 16:07 08/20/17 16:07 08/20/17 16:07 Intake and Output: 08/20/17 08/20/17 06:59 18:59 Intake Total 660 Output Total 575 Balance 85 - Medications Medications: Current Medications Acetaminophen (Tylenol 325mg Tab) 650 mg PO Q4 PRN PRN Reason: Pain, moderate (4-7) Last Admin: 08/19/17 17:37 Dose: 650 mg Alprazolam (Xanax) 0.5 mg PO DAILY [facility] PRN Reason: Protocol Last Admin: 08/20/17 09:59 Dose: 0.5 mg Aspirin (Ecotrin) 81 mg PO DAILY [facility] Last Admin: 08/20/17 09:55 Dose: 81 mg Atorvastatin Calcium (Lipitor) 40 mg PO DIN [facility] Last Admin: 08/19/17 17:37 Dose: 40 mg Digoxin (Digoxin) 0.125 mg PO 1400 [facility] Last Admin: 08/19/17 14:05 Dose: 0.125 mg Diltiazem HCl (Cardizem Cd) 120 mg PO DAILY [facility] Last Admin: 08/20/17 09:55 Dose: 120 mg Docusate Sodium (Colace) 100 mg PO DAILY [facility] Last Admin: 08/20/17 09:55 Dose: 100 mg Gabapentin (Neurontin) 300 mg PO TID [facility] PRN Reason: Protocol Last Admin: 08/20/17 09:59 Dose: 300 mg Sodium Chloride (Sodium Chloride 0.45%) 1,000 mls @ 80 mls/hr IV .[id number] [facility] Stop: 08/20/17 21:00 Insulin Detemir (Levemir) 15 unit SC Q12 [facility] Last Admin: 08/20/17 09:56 Dose: Not Given Insulin Human Lispro (Humalog High) 0 units SC ACHS [facility] PRN Reason: Protocol Last Admin: 08/20/17 09:55 Dose: Not Given Levetiracetam (Keppra) 500 mg PO Q12 [facility] Last Admin: 08/20/17 09:56 Dose: 500 mg Metoprolol Tartrate (Lopressor) 5 mg IVP Q6H PRN PRN Reason: tachycardia > 120 Last Admin: 08/18/17 11:30 Dose: 5 mg Metoprolol Tartrate (Lopressor) 50 mg PO BID [facility] Last Admin: 08/20/17 09:56 Dose: 50 mg Morphine Sulfate (Morphine Extended Release Tab) 15 mg PO Q12 [facility] Last Admin: 08/20/17 09:58 Dose: 15 mg Ondansetron HCl (Zofran Inj) 4 mg IVP Q6H PRN PRN Reason: Nausea/Vomiting Pantoprazole Sodium (Protonix Ec Tab) 40 mg PO 0600 [facility] Last Admin: 08/20/17 05:27 Dose: 40 mg Paroxetine HCl (Paxil) 10 mg PO HS [facility] Last Admin: 08/19/17 22:08 Dose: 10 mg Polyethylene Glycol (Miralax) 17 gm PO DAILY [facility] Last Admin: 08/20/17 09:56 Dose: 17 gm Thiamine HCl (Vitamin B1 Tab) 100 mg PO DAILY [facility] Last Admin: 08/20/17 09:59 Dose: 100 mg - Labs Labs: 08/20/17 06:15 08/20/17 06:15 PT 13.9 SECONDS (9.4-12.5) H 08/15/17 17:22 INR 1.21 (0.93-1.08) H 08/15/17 17:22 APTT 32.4 Seconds (25.1-36.5) 08/15/17 17:22 Attending/Attestation - Attestation I have personally seen and examined this patient.: Yes I have fully participated in the care of the patient.: Yes I have reviewed all pertinent clinical information, including history, physical exam and plan: Yes Notes (Text): 08/20/17 16:41 attending note; Patient seen and examined with resident. Patient is a 67 year old male with PMhx of Afib, Hep C, diabetes, seizure, Diabetes, recently diagnosed GI /hepatobiliary adenocarcinoma is admitted with fall . CT head is negative.Fall precautions ordered. A. fib; heart rate is controlled. Continue metoprolol,Cardizem and digoxin. Continue aspirin and hold xeralto for katelyn cath placement today. Recently diagnosed GI/hepatobiliary adenocarcinoma. Patient is aware of the diagnosis now and accepted. Oncology evaluation appreciated. patient is willing to go through palliative Therapy. case discussed with oncology in detail yesterday. Anxiety;patient is on Xanax. Psychiatric evaluation appreciated. started on Paxil. diabetes; continue regular insulin sliding scale and Levemir. PT evaluation appreciated. Possible discharge home after Port-A-Cath placement. Patient will continue palliative therapy with [place] that the services are available. Prognosis is poor. Patient is in the process of appointing power of deputy county attorney. Palliative care consult appreciated. upon discharge [facility].
[2017-08-20] MEDS ORDERED: Midazolam 2 MG/2 ML VIAL ONE ×2 (13:25→13:35)
[2017-08-20] MEDS ORDERED: Sodium Chloride 0.45% 1,000 ML IV SCH (14:45)
[2017-08-20 16:08] VITALS: RESP 18
[2017-08-20] MEDS: Digoxin 125 mcg (0.125 mg) Tab PO SCH (18:14)
--- NOTE | 2017-08-20 19:04 | VASCULAR ---
PROCEDURE: Ultrasound and fluoroscopic right internal jugular venous access port. CLINICAL HISTORY: Metastatic pancreatic carcinomaVenous port for chemotherapy. PHYSICIAN(S): Ruddy Webb M.D. TECHNIQUE: The relative risks and indications of the procedure were explained to the patient and consent obtained. The patient was placed supine on the arteriogram table and the right neck and chest prepped and draped in the usual sterile fashion. Conscious sedation monitoring was provided throughout the procedure by a nurse. Antibiotics were given prior to the procedure. Under direct ultrasound guidance, the right internal due vein was punctured with a micro-puncture set. A 0.035 angled Glidewire was advanced into the IVC. A 4 cm incision was made below the right clavicle and the pocket blunted dissected. A 8 [place] single-lumen catheter, 24 cm long, was advanced to the SVC/RA junction. The catheter was trimmed and attached to the port. The port aspirates and injects easily. The port was placed in the pocket and closed in 2 layers. The patient tolerated the procedure well. IMPRESSION: Ultrasound and fluoroscopically placed right internal jugular venous access port.
[2017-08-21] MEDS: Pantoprazole 40 mg EC Tab PO SCH (06:10)
[2017-08-21 06:27] LABS: BASO # 0.01 K/mm3 (0.0-2.0); BASO % 0.1 % (0.0-3.0); EOS # 0.1 (0.0-0.7); EOS % 1.3 % (1.5-5.0); GRAN # 6.53 (1.4-6.5); GRAN % 78.2 % (50.0-68.0); HEMOGLOBIN 11.8 g/dL (14.0-18.0); LYMPH # 0.8 (1.2-3.4); LYMPH % 9.9 % (22.0-35.0); MEAN CELL VOLUME 87.2 fl (80.0-105.0); MEAN CORPUSCULAR HEMOGLOBIN 26.9 pg (25.0-35.0); MEAN CORPUSCULAR HGB CONC 30.8 g/dl (31.0-37.0); MEAN PLATELET VOLUME 11.2 fl (7.0-11.0); MONO # 0.9 (0.1-0.6); MONO % 10.5 % (1.0-6.0); RBC 4.39 10^6/uL (3.5-6.1); RED CELL DISTRIBUTION WIDTH 14.6 % (11.5-14.5); WHITE BLOOD COUNT 8.4 10^3/ul (4.5-11.0)
[2017-08-21 06:52] LABS: ALBUMIN 2.9 g/dL (3.0-4.8); ALT/SGPT 20 U/L (7-56); AST/SGOT 25 U/L (17-59); BLOOD UREA NITROGEN 22 mg/dL (7-21); CALCIUM 8.5 mg/dL (8.4-10.5); GFR AFRICAN-AMERICAN > 60; GFR NON-AFRICAN AMERICAN > 60
[2017-08-21] MEDS: Insulin Lispro (HUMAlog) HIGH Coverage SC SCH ×2 (08:25→11:47)
[2017-08-21 08:38] VITALS: BP 123/84; PULSE 91; TEMP 98.3; O2SAT 94
[2017-08-21] MEDS: POLYETHYLENE GLYCOL 3350 17 GM/Dose PACKET PO SCH (09:46)
[2017-08-21] MEDS: Morphine 15 mg SR Tab PO SCH (09:47)
[2017-08-21] MEDS: Insulin Detemir 100 units/ml Vial (Levemir) SC SCH (09:48)
[2017-08-21] MEDS: diltiaZEM 120 mg/24 Hours CD Cap PO SCH (09:48)
--- NOTE | 2017-08-21 13:28 | CP.PCM.DIS ---
<Phong Simon - Last Filed: 08/21/17 13:35> Provider - Provider Date of Admission: 08/15/17 18:30 Attending physician: Germain Tim MD Primary care physician: NO PRIMARY CARE PROVIDER Time Spent in preparation of Discharge (in minutes): 45 Diagnosis - Discharge Diagnosis (1) Pancreatic mass Status: Chronic Priority: High (2) Metastases to the liver Status: Chronic Priority: High (3) Generalized weakness Status: Resolved Priority: Medium (4) History of seizure Status: Chronic Priority: Medium (5) Coronary artery disease Status: Chronic Priority: Medium (6) Atrial fibrillation Status: Chronic Priority: Medium (7) Ascites Status: Chronic Priority: Medium (8) Intractable abdominal pain Status: Resolved Priority: Medium (9) Fall Status: Resolved Priority: Medium Hospital Course - Lab Results Lab Results: Most Recent Lab Values WBC 8.4 10^3/ul (4.5-11.0) 08/21/17 05:30 RBC 4.39 10^6/uL (3.5-6.1) 08/21/17 05:30 Hgb 11.8 g/dL (14.0-18.0) L 08/21/17 05:30 Hct 38.3 % (42.0-52.0) L 08/21/17 05:30 MCV 87.2 fl (80.0-105.0) 08/21/17 05:30 MCH 26.9 pg (25.0-35.0) 08/21/17 05:30 MCHC 30.8 g/dl (31.0-37.0) L 08/21/17 05:30 RDW 14.6 % (11.5-14.5) H 08/21/17 05:30 Plt Count 286 10^3/uL (120.0-450.0) 08/21/17 05:30 MPV 11.2 fl (7.0-11.0) H 08/21/17 05:30 Gran % 78.2 % (50.0-68.0) H 08/21/17 05:30 Lymph % (Auto) 9.9 % (22.0-35.0) L 08/21/17 05:30 Bay % (Auto) 10.5 % (1.0-6.0) H 08/21/17 05:30 Eos % (Auto) 1.3 % (1.5-5.0) L 08/21/17 05:30 Baso % (Auto) 0.1 % (0.0-3.0) 08/21/17 05:30 Gran # 6.53 (1.4-6.5) H 08/21/17 05:30 Lymph # (Auto) 0.8 (1.2-3.4) L 08/21/17 05:30 Bay # (Auto) 0.9 (0.1-0.6) H 08/21/17 05:30 Eos # (Auto) 0.1 (0.0-0.7) 08/21/17 05:30 Baso # (Auto) 0.01 K/mm3 (0.0-2.0) 08/21/17 05:30 Neutrophils % (Manual) 81 % (50.0-70.0) H 08/15/17 17:22 Lymphocytes % (Manual) 7 % (22.0-35.0) L 08/15/17 17:22 Monocytes % (Manual) 12 % (1.0-6.0) H 08/15/17 17:22 PT 13.9 SECONDS (9.4-12.5) H 08/15/17 17:22 INR 1.21 (0.93-1.08) H 08/15/17 17:22 APTT 32.4 Seconds (25.1-36.5) 08/15/17 17:22 pO2 50 mm/Hg (30-55) 08/15/17 17:22 VBG pH 7.39 (7.32-7.43) 08/15/17 17:22 VBG pCO2 46.0 (40-60) 08/15/17 17:22 VBG HCO3 27.8 mmol/l (21-28) 08/15/17 17:22 VBG Total CO2 29.2 mmol.L (22-28) H 08/15/17 17:22 VBG O2 Sat (Calc) 88.1 % (40-65) H 08/15/17 17:22 VBG Base Excess 2.2 mmol/L (0.0-2.0) H 08/15/17 17:22 VBG Potassium 4.0 mmol/L (3.6-5.2) 08/15/17 17:22 Sodium 137.0 mmol/L (132-148) 08/15/17 17:22 Chloride 101.0 mmol/L (98-107) 08/15/17 17:22 Glucose 255 mg/dl (75-110) H 08/15/17 17:22 Lactate 1.4 mmol/L (0.7-2.1) 08/15/17 17:22 FiO2 21.0 % 08/15/17 17:22 Sodium 140 mmol/L (132-148) 08/21/17 05:30 Potassium 4.1 mmol/L (3.6-5.0) 08/21/17 05:30 Chloride 103 mmol/L (98-107) 08/21/17 05:30 Carbon Dioxide 26 mmol/L (21-33) 08/21/17 05:30 Anion Gap 16 (10-20) 08/21/17 05:30 BUN 22 mg/dL (7-21) H 08/21/17 05:30 Creatinine 1.1 mg/dl (0.8-1.5) 08/21/17 05:30 Est GFR ( Amer) > 60 08/21/17 05:30 Est GFR (Non-Af Amer) > 60 08/21/17 05:30 POC Glucose (mg/dL) 111 mg/dL (65-110) H 08/21/17 11:18 Random Glucose 127 mg/dL (70-110) H 08/21/17 05:30 Hemoglobin A1c 8.3 % (4.2-6.5) H 08/17/17 07:30 Calcium 8.5 mg/dL (8.4-10.5) 08/21/17 05:30 Phosphorus 3.1 mg/dL (2.5-4.5) 08/17/17 07:30 Magnesium 1.9 mg/dL (1.7-2.2) 08/17/17 07:30 Total Bilirubin 0.6 mg/dL (0.2-1.3) 08/21/17 05:30 AST 25 U/L (17-59) 08/21/17 05:30 ALT 20 U/L (7-56) 08/21/17 05:30 Alkaline Phosphatase 96 U/L (38-126) 08/21/17 05:30 Lactate Dehydrogenase 487 U/L (333-699) 08/16/17 08:00 Total Creatine Kinase 43 U/L (35-230) 08/16/17 08:00 Troponin I 0.05 ng/mL D 08/16/17 08:00 NT-Pro-B Natriuret Pep 4010 pg/mL (0-450) H 08/15/17 17:22 Total Protein 5.8 g/dL (5.8-8.3) 08/21/17 05:30 Albumin 2.9 g/dL (3.0-4.8) L 08/21/17 05:30 Globulin 2.9 gm/dL 08/21/17 05:30 Albumin/Globulin Ratio 1.0 (1.1-1.8) L 08/21/17 05:30 Triglycerides 118 mg/dL (35-160) 08/17/17 07:30 Cholesterol 89 mg/dL (130-200) L 08/17/17 07:30 LDL Cholesterol Direct 46 mg/dL (0-129) 08/17/17 07:30 HDL Cholesterol 26 mg/dL (29-60) L 08/17/17 07:30 TSH 3rd Generation 4.41 mIU/mL (0.46-4.68) 08/17/17 07:30 Venous Blood Potassium 4.0 mmol/L (3.6-5.2) 08/15/17 17:22 Salicylates < 1 mg/dL (2.0-20.0) L 08/15/17 17:22 Acetaminophen < 10.0 ug/ml (10.0-20.0) L 08/15/17 17:22 Alcohol, Quantitative < 10 mg/dL (0-10) 08/15/17 17:22 - Hospital Course Hospital Course: Patient is a 67 year old male with PMHx of Afib, Hep C, seizure, DVT, Diabetes who was admitted for evaluation and treatment for ED for evaluation and treatment for a mechanical fall. 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 During their hospital stay the patient was seen by cardiology (Dr. Kline), psychiatry ( Dr. Quarles) and interventional radiology (Dr. Webb) whose recommendations were both appreciated and utilized in the care for this patient. Cardiology started patient on cardizem 130mg PO daily for rate control. Psychiatry started patient on paxil 10mg PO daily. Interventional radiology placed a portacath for future chemotherapy administration. During their hospital stay the patient underwent a CT of head and CXR which were reviewed, appreciated, and utilized in the management of the patients clinical course. CT of head revealed no suspicious interval findings, age-related neuro degenerative changes, and chronic lobar infarction left frontal lobe. The chest xray revealed no interval acute cardiopulmonary disease. [facility]. Patient was treated with aspirin, statin, cardizem, digoxin, metoprolol , morphine sulfate, paxil, insulin, intravenous fluids amongst other empiric/ therapeutic medications. At this time the patient is medically stable for discharge. Patient understands and appreciates discharge plan. Patient instructed to follow up with primary care physicians and referrals within three to five days from discharge. Furthermore, the patient is instructed to take medications as prescribed and to return to emergency room for evaluation of intractable headache, fever, chills, dizziness, chest pain, shortness of breath , abdominal pain, nausea, vomiting, diarrhea, constipation, and urinary symptoms. This is a brief summary of the patients hospital course. Please see patient chart for full details. Discharge Exam - Additional Findings Additional findings: - Constitutional Appears: NAD - Head Exam Head Exam: ATRAUMATIC, NORMAL INSPECTION, NORMOCEPHALIC - Eye Exam Eye Exam: EOMI, Normal appearance, PERRL - ENT Exam ENT Exam: Mucous Membranes Moist, Normal Exam - Neck Exam Neck exam: Positive for: Normal Inspection - Respiratory Exam Respiratory Exam: NORMAL BREATHING PATTERN, CTA bilaterally - Cardiovascular Exam Cardiovascular Exam: +s1, +s2 - GI/Abdominal Exam GI & Abdominal Exam: no guarding, no rebound tenderness - Extremities Exam Extremities exam: Positive for: normal inspection - Neurological Exam Neurological exam: Alert, CN II-XII Intact, Normal Gait, Oriented x 3 Discharge Plan - Discharge Medications Prescriptions: diltiaZEM CD [Cardizem CD] 120 mg PO DAILY #14 cap PARoxetine [Paxil] 10 mg PO HS #10 tab - Follow Up Plan Condition: IMPROVED Disposition: HOME/ ROUTINE Patient education suggested?: Yes Instructions: Generalized Weakness (DC), Weakness (GEN) Additional Instructions: Patient Instructions: 1. Take medications as prescribed. Started on: diltiaZEM CD [Cardizem CD] 120 mg PO DAILY #14 cap PARoxetine [Paxil] 10 mg PO HS #10 tab 2. Follow up with PMD and referrals within three to five days from discharge. 3. Follow up at [facility] for chemotherapy administration. 4. Return to the emergency room for evaluation of intractable headache, fever, chills, dizziness, chest pain, shortness of breath, abdominal pain, nausea, vomiting, diarrhea, constipation, and urinary symptoms. Referrals: Lisa Kline MD [Staff Provider] - Zuleika Crowe MD [Staff Provider] - PCPFREDA [Primary Care Provider] - <Germain Tim - Last Filed: 08/21/17 16:12> Provider - Provider Date of Admission: 08/15/17 18:30 Attending physician: Germain Tim MD Primary care physician: FREDA PRIMARY CARE PROVIDER Hospital Course - Lab Results Lab Results: Most Recent Lab Values WBC 8.4 10^3/ul (4.5-11.0) 08/21/17 05:30 RBC 4.39 10^6/uL (3.5-6.1) 08/21/17 05:30 Hgb 11.8 g/dL (14.0-18.0) L 08/21/17 05:30 Hct 38.3 % (42.0-52.0) L 08/21/17 05:30 MCV 87.2 fl (80.0-105.0) 08/21/17 05:30 MCH 26.9 pg (25.0-35.0) 08/21/17 05:30 MCHC 30.8 g/dl (31.0-37.0) L 08/21/17 05:30 RDW 14.6 % (11.5-14.5) H 08/21/17 05:30 Plt Count 286 10^3/uL (120.0-450.0) 08/21/17 05:30 MPV 11.2 fl (7.0-11.0) H 08/21/17 05:30 Gran % 78.2 % (50.0-68.0) H 08/21/17 05:30 Lymph % (Auto) 9.9 % (22.0-35.0) L 08/21/17 05:30 Bay % (Auto) 10.5 % (1.0-6.0) H 08/21/17 05:30 Eos % (Auto) 1.3 % (1.5-5.0) L 08/21/17 05:30 Baso % (Auto) 0.1 % (0.0-3.0) 08/21/17 05:30 Gran # 6.53 (1.4-6.5) H 08/21/17 05:30 Lymph # (Auto) 0.8 (1.2-3.4) L 08/21/17 05:30 Bay # (Auto) 0.9 (0.1-0.6) H 08/21/17 05:30 Eos # (Auto) 0.1 (0.0-0.7) 08/21/17 05:30 Baso # (Auto) 0.01 K/mm3 (0.0-2.0) 08/21/17 05:30 Neutrophils % (Manual) 81 % (50.0-70.0) H 08/15/17 17:22 Lymphocytes % (Manual) 7 % (22.0-35.0) L 08/15/17 17:22 Monocytes % (Manual) 12 % (1.0-6.0) H 08/15/17 17:22 PT 13.9 SECONDS (9.4-12.5) H 08/15/17 17:22 INR 1.21 (0.93-1.08) H 08/15/17 17:22 APTT 32.4 Seconds (25.1-36.5) 08/15/17 17:22 pO2 50 mm/Hg (30-55) 08/15/17 17:22 VBG pH 7.39 (7.32-7.43) 08/15/17 17:22 VBG pCO2 46.0 (40-60) 08/15/17 17:22 VBG HCO3 27.8 mmol/l (21-28) 08/15/17 17:22 VBG Total CO2 29.2 mmol.L (22-28) H 08/15/17 17:22 VBG O2 Sat (Calc) 88.1 % (40-65) H 08/15/17 17:22 VBG Base Excess 2.2 mmol/L (0.0-2.0) H 08/15/17 17:22 VBG Potassium 4.0 mmol/L (3.6-5.2) 08/15/17 17:22 Sodium 137.0 mmol/L (132-148) 08/15/17 17:22 Chloride 101.0 mmol/L (98-107) 08/15/17 17:22 Glucose 255 mg/dl (75-110) H 08/15/17 17:22 Lactate 1.4 mmol/L (0.7-2.1) 08/15/17 17:22 FiO2 21.0 % 08/15/17 17:22 Sodium 140 mmol/L (132-148) 08/21/17 05:30 Potassium 4.1 mmol/L (3.6-5.0) 08/21/17 05:30 Chloride 103 mmol/L (98-107) 08/21/17 05:30 Carbon Dioxide 26 mmol/L (21-33) 08/21/17 05:30 Anion Gap 16 (10-20) 08/21/17 05:30 BUN 22 mg/dL (7-21) H 08/21/17 05:30 Creatinine 1.1 mg/dl (0.8-1.5) 08/21/17 05:30 Est GFR ( Amer) > 60 08/21/17 05:30 Est GFR (Non-Af Amer) > 60 08/21/17 05:30 POC Glucose (mg/dL) 111 mg/dL (65-110) H 08/21/17 11:18 Random Glucose 127 mg/dL (70-110) H 08/21/17 05:30 Hemoglobin A1c 8.3 % (4.2-6.5) H 08/17/17 07:30 Calcium 8.5 mg/dL (8.4-10.5) 08/21/17 05:30 Phosphorus 3.1 mg/dL (2.5-4.5) 08/17/17 07:30 Magnesium 1.9 mg/dL (1.7-2.2) 08/17/17 07:30 Total Bilirubin 0.6 mg/dL (0.2-1.3) 08/21/17 05:30 AST 25 U/L (17-59) 08/21/17 05:30 ALT 20 U/L (7-56) 08/21/17 05:30 Alkaline Phosphatase 96 U/L (38-126) 08/21/17 05:30 Lactate Dehydrogenase 487 U/L (333-699) 08/16/17 08:00 Total Creatine Kinase 43 U/L (35-230) 08/16/17 08:00 Troponin I 0.05 ng/mL D 08/16/17 08:00 NT-Pro-B Natriuret Pep 4010 pg/mL (0-450) H 08/15/17 17:22 Total Protein 5.8 g/dL (5.8-8.3) 08/21/17 05:30 Albumin 2.9 g/dL (3.0-4.8) L 08/21/17 05:30 Globulin 2.9 gm/dL 08/21/17 05:30 Albumin/Globulin Ratio 1.0 (1.1-1.8) L 08/21/17 05:30 Triglycerides 118 mg/dL (35-160) 08/17/17 07:30 Cholesterol 89 mg/dL (130-200) L 08/17/17 07:30 LDL Cholesterol Direct 46 mg/dL (0-129) 08/17/17 07:30 HDL Cholesterol 26 mg/dL (29-60) L 08/17/17 07:30 TSH 3rd Generation 4.41 mIU/mL (0.46-4.68) 08/17/17 07:30 Venous Blood Potassium 4.0 mmol/L (3.6-5.2) 08/15/17 17:22 Salicylates < 1 mg/dL (2.0-20.0) L 08/15/17 17:22 Acetaminophen < 10.0 ug/ml (10.0-20.0) L 08/15/17 17:22 Alcohol, Quantitative < 10 mg/dL (0-10) 08/15/17 17:22 Attending/Attestation - Attestation I have personally seen and examined this patient.: Yes I have fully participated in the care of the patient.: Yes I have reviewed all pertinent clinical information, including history, physical exam and plan: Yes Notes (Text): 08/21/17 16:07 attending note; Patient seen and examined with resident. Patient is a 67 year old male with PMhx of Afib, Hep C, diabetes, seizure, Diabetes, recently diagnosed GI /hepatobiliary adenocarcinoma is admitted with fall . CT head is negative.Fall precautions ordered. A. fib; heart rate is controlled. Continue metoprolol,Cardizem and digoxin. continue aspirin and xarelto. Recently diagnosed GI/hepatobiliary adenocarcinoma. Patient is aware of the diagnosis now and accepted. Oncology evaluation appreciated. patient is willing to go through palliative Therapy.s/p katelyn cath placement yesterday. Patient will follow-up with oncology clinic at [facility] for further treatment. case discussed with oncology in detail . Anxiety;patient is on Xanax. Psychiatric evaluation appreciated. started on Paxil. diabetes; continue regular insulin sliding scale and Levemir. PT evaluation appreciated. Prognosis is poor. Patient is in the process of appointing power of supervisor color making. Palliative care consult appreciated. upon discharge the patient will follow up with [facility] clinic.
--- NOTE | 2017-08-21 13:58 | CP.PCM.PN ---
Subjective - Date & Time of Evaluation Date of Evaluation: 08/21/17 Time of Evaluation: 09:00 - Subjective Subjective: alert, offers no complaints Objective - Vital Signs/Intake and Output Vital Signs (last 24 hours): Temp Pulse Resp BP Pulse Ox 98.3 F 91 H 18 123/84 94 L 08/21/17 08:38 08/21/17 08:38 08/21/17 08:38 08/21/17 08:38 08/21/17 08:38 Intake and Output: 08/21/17 08/21/17 06:59 18:59 Intake Total 600 Output Total 350 Balance 250 - Medications Medications: Current Medications Acetaminophen (Tylenol 325mg Tab) 650 mg PO Q4 PRN PRN Reason: Pain, moderate (4-7) Last Admin: 08/19/17 17:37 Dose: 650 mg Alprazolam (Xanax) 0.5 mg PO DAILY [facility] PRN Reason: Protocol Last Admin: 08/21/17 09:47 Dose: 0.5 mg Aspirin (Ecotrin) 81 mg PO DAILY [facility] Last Admin: 08/21/17 09:47 Dose: 81 mg Atorvastatin Calcium (Lipitor) 40 mg PO DIN [facility] Last Admin: 08/20/17 18:15 Dose: 40 mg Digoxin (Digoxin) 0.125 mg PO 1400 [facility] Last Admin: 08/20/17 18:14 Dose: Not Given Diltiazem HCl (Cardizem Cd) 120 mg PO DAILY [facility] Last Admin: 08/21/17 09:48 Dose: 120 mg Docusate Sodium (Colace) 100 mg PO DAILY [facility] Last Admin: 08/21/17 09:46 Dose: 100 mg Gabapentin (Neurontin) 300 mg PO TID [facility] PRN Reason: Protocol Last Admin: 08/21/17 09:46 Dose: 300 mg Insulin Detemir (Levemir) 15 unit SC Q12 [facility] Last Admin: 08/21/17 09:48 Dose: 15 unit Insulin Human Lispro (Humalog High) 0 units SC ACHS [facility] PRN Reason: Protocol Last Admin: 08/21/17 11:47 Dose: Not Given Levetiracetam (Keppra) 500 mg PO Q12 [facility] Last Admin: 08/21/17 09:47 Dose: 500 mg Metoprolol Tartrate (Lopressor) 5 mg IVP Q6H PRN PRN Reason: tachycardia > 120 Last Admin: 08/18/17 11:30 Dose: 5 mg Metoprolol Tartrate (Lopressor) 50 mg PO BID [facility] Last Admin: 08/21/17 09:47 Dose: 50 mg Morphine Sulfate (Morphine Extended Release Tab) 15 mg PO Q12 [facility] Last Admin: 08/21/17 09:47 Dose: 15 mg Ondansetron HCl (Zofran Inj) 4 mg IVP Q6H PRN PRN Reason: Nausea/Vomiting Pantoprazole Sodium (Protonix Ec Tab) 40 mg PO 0600 [facility] Last Admin: 08/21/17 06:10 Dose: 40 mg Paroxetine HCl (Paxil) 10 mg PO HS [facility] Last Admin: 08/20/17 21:58 Dose: 10 mg Polyethylene Glycol (Miralax) 17 gm PO DAILY [facility] Last Admin: 08/21/17 09:46 Dose: 17 gm Thiamine HCl (Vitamin B1 Tab) 100 mg PO DAILY [facility] Last Admin: 08/21/17 09:47 Dose: 100 mg - Labs Labs: 08/21/17 05:30 08/21/17 05:30 PT 13.9 SECONDS (9.4-12.5) H 08/15/17 17:22 INR 1.21 (0.93-1.08) H 08/15/17 17:22 APTT 32.4 Seconds (25.1-36.5) 08/15/17 17:22 - Constitutional Appears: Chronically Ill - Head Exam Head Exam: NORMAL INSPECTION - Eye Exam Eye Exam: Normal appearance, PERRL - ENT Exam ENT Exam: Mucous Membranes Moist - Neck Exam Neck Exam: Normal Inspection - Respiratory Exam Respiratory Exam: Decreased Breath Sounds, NORMAL BREATHING PATTERN - Cardiovascular Exam Cardiovascular Exam: REGULAR RHYTHM, +S1, +S2 - GI/Abdominal Exam GI & Abdominal Exam: Distended, Soft, Normal Bowel Sounds - Extremities Exam Extremities Exam: Normal Inspection - Back Exam Back Exam: NORMAL INSPECTION - Neurological Exam Neurological Exam: Alert, Oriented x3 - Skin Skin Exam: Dry, Pallor Assessment and Plan - Assessment and Plan (Free Text) Assessment: 67 year old male with history of pancreatic cancer and ascites who was admitted with weakness and suffered a fall w/o injury at home. The pait and I have had several discussions rearing advance care planning. The patient had inferred that he was going to speak with his friend Kaden about being a health care proxy. The patient states he was unable to reach Kaden in order to have this discussion with him. Encouraged him to do so. Gaols of care and advance care planning with patient, 20 minutes Plan: Goals of care and advance care planning
[2017-08-21] MEDS: Digoxin 125 mcg (0.125 mg) Tab PO SCH (15:04)
[2017-08-21 15:07] VITALS: PULSE 82
--- NOTE | 2017-08-22 00:16 | CP.PCM.HP ---
Past Patient History - Infectious Disease Hx of Infectious Diseases: None - Tetanus Immunizations Tetanus Immunization: Unknown - Past Medical History & Family History Past Medical History?: Yes - Past Social History Smoking Status: Former Smoker - CARDIAC Hx Cardiac Disorders: Yes (rhinoplasty) Hx Congestive Heart Failure: Yes Hx Hypertension: Yes - PULMONARY Hx Chronic Obstructive Pulmonary Disease (COPD): No - NEUROLOGICAL HX Cerebrovascular Accident: No - HEENT Hx HEENT Problems: Yes Hx Blind: Yes (left eye legally blind) Hx Cataracts: No Hx Deafness: No Hx Difficulty Chewing: Yes (needs dentures. no upper teeth) Hx Epistaxis: No Hx Glaucoma: No Hx Macular Degeneration: No - RENAL Hx Renal Failure: No - ENDOCRINE/METABOLIC Hx Diabetes Mellitus Type 2: Yes - HEMATOLOGICAL/ONCOLOGICAL Hx Blood Disorders: Yes Hx AIDS: No Hx Anemia: No Hx Cancer: No Hx Chemotherapy: No Hx Cirrhosis: No Hx Hemophilia: No Hx Hepatitis A: No Hx Hepatitis B: No Hx Hepatitis C: Yes Hx Metastesis: No Hx Shingles: No Hx Sickle Cell Disease: No Hx Unexplained Bleeding: No - INTEGUMENTARY Hx Dermatological Problems: No Hx Basil Cell: No Hx Eczema: No Hx Melanoma: No Hx Psoriasis: No Hx Squamous Cell: No - MUSCULOSKELETAL/RHEUMATOLOGICAL Hx Musculoskeletal Disorders: Yes Hx Falls: Yes Hx Unsteady Gait: Yes - GASTROINTESTINAL Hx Gastrointestinal Disorders: Yes (hiatal hernia) Hx Colostomy: No Hx Crohn's Disease: No Hx Diverticulitis: No Hx Gall Bladder Disease: No Hx Gastroesophageal Reflux: Yes Hx Ileostomy: No Hx Liver Failure: No Hx Pancreatitis: No HX Swallowing Problems: No - GENITOURINARY/GYNECOLOGICAL Hx Genitourinary Disorders: No Hx Hematuria: No Hx Incontinence: No Hx Prostate Problems: No Hx Sexually Transmitted Disorders: No Hx Urinary Tract Infection: No - PSYCHIATRIC Hx Substance Use: Yes - SURGICAL HISTORY Hx Amputation: No Hx Appendectomy: No Hx Cardiac Catheterization: Yes Hx Cholecystectomy: No Hx Coronary Stent: Yes Hx Gastric Bypass Surgery: No Hx Hysterectomy: No Hx Joint Replacement: No Hx Kidney Transplant: No Hx Liver Transplant: No Hx Mastectomy: No Hx Musculoskeletal Surgery: (rhinoplasty) Hx Open Heart Surgery: Yes (CABG) Hx Orthopedic Surgery: No Hx Splenectomy: No Hx Valve Replacement: No - ANESTHESIA Hx Anesthesia: Yes Hx Anesthesia Reactions: No Hx Malignant Hyperthermia: No Meds Home Medications: Home Medication List Medication Instructions Recorded Confirmed Type PARoxetine [Paxil] 10 mg PO HS #10 tab 08/21/17 Rx [id number] CD [Cardizem CD] 120 mg PO DAILY #14 cap 08/21/17 Rx Allergies/Adverse Reactions: Allergies Allergy/AdvReac Type Severity Reaction Status Date / Time acetaminophen [From Percocet] Allergy .hallucinat Verified 08/21/17 20:07 ions oxycodone [From Percocet] Allergy RASH Verified 08/21/17 20:07 warfarin [From Coumadin] Allergy RASH Verified 08/21/17 20:07 Results - Vital Signs Recent Vital Signs: Last Vital Signs Temp 98.3 F 08/21/17 08:38 Pulse 91 H 08/21/17 08:38 Resp 18 08/21/17 08:38 BP 123/84 08/21/17 08:38 Pulse Ox 94 L 08/21/17 08:38 - Labs Result Diagrams: 08/21/17 05:30 08/21/17 05:30 Labs: Laboratory Results - last 24 hr 08/21/17 08/21/17 08/21/17 05:30 05:30 07:48 WBC 8.4 RBC 4.39 Hgb 11.8 L Hct 38.3 L MCV 87.2 MCH 26.9 MCHC 30.8 L RDW 14.6 H Plt Count 286 MPV 11.2 H Gran % 78.2 H Lymph % (Auto) 9.9 L [place] % (Auto) 10.5 H Eos % (Auto) 1.3 L Baso % (Auto) 0.1 Gran # 6.53 H Lymph # (Auto) 0.8 L [place] # (Auto) 0.9 H Eos # (Auto) 0.1 Baso # (Auto) 0.01 Sodium 140 Potassium 4.1 Chloride 103 Carbon Dioxide 26 Anion Gap 16 BUN 22 H Creatinine 1.1 Est GFR ( Amer) > 60 Est GFR (Non-Af Amer) > 60 POC Glucose (mg/dL) 113 H Random Glucose 127 H Calcium 8.5 Total Bilirubin 0.6 AST 25 ALT 20 Alkaline Phosphatase 96 Total Protein 5.8 Albumin 2.9 L Globulin 2.9 Albumin/Globulin Ratio 1.0 L 08/21/17 11:18 WBC RBC Hgb Hct MCV MCH MCHC RDW Plt Count MPV Gran % Lymph % (Auto) [place] % (Auto) Eos % (Auto) Baso % (Auto) Gran # Lymph # (Auto) [place] # (Auto) Eos # (Auto) Baso # (Auto) Sodium Potassium Chloride Carbon Dioxide Anion Gap BUN Creatinine Est GFR ( Amer) Est GFR (Non-Af Amer) POC Glucose (mg/dL) 111 H Random Glucose Calcium Total Bilirubin AST ALT Alkaline Phosphatase Total Protein Albumin Globulin Albumin/Globulin Ratio
== END 2017-08-21 17:24 | disposition home or self-care (01) | DRG 436 ==
LOC: ED 15:54 → ERH 18:30 → 3RSO 20:14
PROVIDERS: ADMIT Internal Medicine; ATTEND Internal Medicine
PROC: 0JH63WZ Insertion of Totally Implantable Vascular Access Device into Chest Subcutaneous Tissue and Fascia, Percutaneous Approach (ICD-10-PCS; principal; 2017-08-20)
DX: C25.9 Malignant neoplasm of pancreas, unspecified (principal); C24.9 Malignant neoplasm of biliary tract, unspecified; C78.7 Secondary malignant neoplasm of liver and intrahepatic bile duct; I48.92 Unspecified atrial flutter; R18.8 Other ascites; I48.2 Chronic atrial fibrillation; I25.10 Atherosclerotic heart disease of native coronary artery without angina pectoris; E11.42 Type 2 diabetes mellitus with diabetic polyneuropathy; E11.65 Type 2 diabetes mellitus with hyperglycemia; K59.00 Constipation, unspecified; B18.2 Chronic viral hepatitis C; R53.1 Weakness; K21.9 Gastro-esophageal reflux disease without esophagitis; F43.23 Adjustment disorder with mixed anxiety and depressed mood; F43.10 Post-traumatic stress disorder, unspecified; E78.5 Hyperlipidemia, unspecified; G40.909 Epilepsy, unspecified, not intractable, without status epilepticus; F12.90 Cannabis use, unspecified, uncomplicated; I11.0 Hypertensive heart disease with heart failure; I50.9 Heart failure, unspecified; R29.6 Repeated falls; Z79.4 Long term (current) use of insulin; Z79.01 Long term (current) use of anticoagulants; Z86.718 Personal history of other venous thrombosis and embolism; Z95.1 Presence of aortocoronary bypass graft; Z91.81 History of falling

== ENCOUNTER 2017-08-21 19:49 | Inpatient (IN) | payer OTHER ==
[2017-08-21 20:02] VITALS: BMI 24.4
[2017-08-21] MEDS ORDERED: Sodium Chloride 0.9% 1,000 ML IV STA (20:21)
--- NOTE | 2017-08-21 20:25 | ED PDOC ---
Arrival/HPI - General Chief Complaint: Altered Mental Status Time Seen by Provider: 08/21/17 19:56 - History of Present Illness Narrative History of Present Illness (Text): 67 y/o M BIBEMS for general weakness. Patient was discharged from hospital today , was unable to get into his own home due to general weakness and brought back to hospital. Patient denies any pain. Otherwise unable to provide full history due to slow responses and weakness. According to chart review, patient presented to hospital with fall due to general weakness, was in Afib, had a port implanted for future chemotherapy for pancreatic cancer? with hepatic metastasis and also started on Paxil by psychiatry. Past Medical History - Infectious Disease Hx of Infectious Diseases: None - Tetanus Immunization Tetanus Immunization: Unknown - Cardiac Hx Cardiac Disorders: Yes (rhinoplasty) Hx Congestive Heart Failure: Yes Hx Hypertension: Yes - Pulmonary Hx Chronic Obstructive Pulmonary Disease (COPD): No - Neurological HX Cerebrovascular Accident: No - HEENT Hx HEENT Disorder: Yes Hx Blind: Yes (left eye legally blind) Hx Cataracts: No Hx Deafness: No Hx Difficulty Chewing: Yes (needs dentures. no upper teeth) Hx Epistaxis: No Hx Glaucoma: No Hx Macular Degeneration: No - Renal Hx Renal Failure: No - Endocrine/Metabolic Hx Diabetes Mellitus Type 2: Yes - Hematological/Oncological Hx Blood Disorders: Yes Hx AIDS: No Hx Anemia: No Hx Cancer: No Hx Chemotherapy: No Hx Cirrhosis: No Hx Hemophilia: No Hx Hepatitis A: No Hx Hepatitis B: No Hx Hepatitis C: Yes Hx Metastasis: No Hx Shingles: No Hx Sickle Cell Disease: No Hx Unexplained Bleeding: No - Integumentary Hx Dermatological Disorder: No Hx Basal Cell Carcinoma: No Hx Eczema: No Hx Melanoma: No Hx Psoriasis: No Hx Squamous Cell Carcinoma: No - Musculoskeletal/Rheumatological Hx Musculoskeletal Disorders: Yes Hx Falls: Yes Hx Unsteady Gait: Yes - Gastrointestinal Hx Gastrointestinal Disorders: Yes (hiatal hernia) Hx Colostomy: No Hx Crohn's Disease: No Hx Diverticulitis: No Hx Gall Bladder Disease: No Hx Gastroesophageal Reflux: Yes Hx Ileostomy: No Hx Liver Failure: No Hx Pancreatitis: No HX Swallowing Problems: No - Genitourinary/Gynecological Hx Genitourinary Disorders: No Hx Hematuria: No Hx Incontinence: No Hx Prostate Problems: No Hx Sexually Transmitted Diseases: No Hx Urinary Tract Infection: No - Psychiatric Hx Substance Use: Yes - Surgical History Hx Amputation: No Hx Appendectomy: No Hx Cardiac Catheterization: Yes Hx Cholecystectomy: No Hx Coronary Stent: Yes Hx Gastric Bypass Surgery: No Hx Hysterectomy: No Hx Joint Replacement: No Hx Kidney Transplant: No Hx Liver Transplant: No Hx Mastectomy: No Hx Musculoskeletal Surgery: (rhinoplasty) Hx Open Heart Surgery: Yes (CABG) Hx Orthopedic Surgery: No Hx Splenectomy: No Hx Valve Replacement: No - Anesthesia Hx Anesthesia: Yes Hx Anesthesia Reactions: No Hx Malignant Hyperthermia: No - Suicidal Assessment Feels Threatened In Home Enviroment: No Family/Social History Family/Social History: Unknown Family HX Smoking Status: Former Smoker Hx Alcohol Use: No (occa marijuana use.) Hx Substance Use: Yes Substance used: MARIJUANA Hx Substance Use Treatment: No Allergies/Home Meds Allergies/Adverse Reactions: Allergies acetaminophen [From Percocet] Allergy (Verified 08/21/17 20:07) .hallucinations oxycodone [From Percocet] Allergy (Verified 08/21/17 20:07) RASH warfarin [From Coumadin] Allergy (Verified 08/21/17 20:07) RASH Home Medications: Home Meds Medication Instructions Recorded Confirmed Levetiracetam [Keppra] 500 mg PO Q12 12/29/16 08/21/17 Review of Systems - Review of Systems Systems not reviewed;Unavailable: Altered Mental Status Physical Exam - Physical Exam Narrative Physical Exam (Text): Gen: NAD Head: NC/AT Eyes: PERRL ENT: Dry MM Neck: No midline tenderness Chest: R sided port CV: Irregular rate Resp: No accessory muscle use Abd: Soft, NT Extremities: No edema Skin: No jaundice Neuro: Awake, responds to questions with 1 word answers Vital Signs Temp Pulse Resp BP Pulse Ox 08/22/17 00:02 107 H 20 113/81 97 08/21/17 22:55 105 H 18 124/68 96 08/21/17 22:00 108 H 18 117/57 L 95 08/21/17 20:02 97.3 F L 89 16 107/54 L 95 Medical Decision Making ED Course and Treatment: Patient with likely continuing general weakness secondary to poor PO intake due to chronic disease. Will start on IVF, vital signs normal. Will also evaluate for electrolyte abnormalities, infection, intoxication, hyperammonemia. EKG Afib, 105 bpm, no ST elevations 08/21/17 22:08: No acute disease. Interval placement of port. Patient positive for opiates, cannabis, and benzos, likely contributing to mental status. Lactate 3.1 and spec gravity elevated. Dr. Fredrick Cyr accepts patient to hospitalist service. - Lab Interpretations Lab Results: 08/21/17 20:36 08/21/17 20:36 Lab Results 08/21/17 23:48: pO2 146 H, VBG pH 7.43, VBG pCO2 38.0 L, VBG HCO3 25.2, VBG Total CO2 26.4, VBG O2 Sat (Calc) 99.9 H, VBG Base Excess 1.0, VBG Potassium 4.0 , Sodium 137.0, Chloride 107.0, Glucose 91, Lactate 1.1, FiO2 21.0, Venous Blood Potassium 4.0 08/21/17 22:51: Urine Opiates Screen Positive H, Urine Methadone Screen Negative , Ur Barbiturates Screen Negative, Ur Phencyclidine Scrn Negative, Ur Amphetamines Screen Negative, U Benzodiazepines Scrn Positive, U Oth Cocaine Metabols Negative, U Cannabinoids Screen Positive H 08/21/17 22:51: Ammonia < 9 L 08/21/17 22:51: Urine Color Yellow, Urine Appearance Clear, Urine pH 5.5, Ur Specific Arthur >= 1.030, Urine Protein Trace H, Urine Glucose (UA) Negative, Urine Ketones Trace H, Urine Blood Trace-intact H, Urine Nitrate Negative, Urine Bilirubin Small H, Urine Urobilinogen 0.2, Ur Leukocyte Esterase Negative , Urine RBC 2 - 5, Urine WBC 0 - 2, Ur Epithelial Cells 0 - 2, Urine Bacteria Few 08/21/17 20:36: Alcohol, Quantitative < 10 08/21/17 20:36: Sodium 141, Chloride 101, Potassium 4.1, Carbon Dioxide 25, Anion Gap 19, BUN 25 H, Creatinine 1.4, Est GFR ( Amer) > 60, Est GFR ( Non-Af Amer) 51, Random Glucose 99, Calcium 9.0, Total Bilirubin 0.6, AST 27, ALT 23, Alkaline Phosphatase 111, Total Creatine Kinase 57, Troponin I 0.04, Total Protein 6.5, Albumin 3.4, Globulin 3.1, Albumin/Globulin Ratio 1.1, Lipase 92 08/21/17 20:36: pO2 27 L, VBG pH 7.32, VBG pCO2 53.0, VBG HCO3 27.3, VBG Total CO2 28.9 H, VBG O2 Sat (Calc) 55.8, VBG Base Excess 0.3, VBG Potassium 4.0, Sodium 138.0, Chloride 104.0, Glucose 100, Lactate 3.1 H, FiO2 21.0, Venous Blood Potassium 4.0 08/21/17 20:36: PT 13.0 H, INR 1.14 H, APTT 30.1 08/21/17 20:36: WBC 9.8, RBC 4.52, Hgb 12.3 L, Hct 39.4 L, MCV 87.2, MCH 27.2, MCHC 31.2, RDW 14.5, Plt Count 281, MPV 10.7, Gran % 86.4 H, Lymph % (Auto) 7.6 L, Bibb % (Auto) 5.6, Eos % (Auto) 0.4 L, Baso % (Auto) 0.0, Gran # 8.48 H, Lymph # (Auto) 0.8 L, Bibb # (Auto) 0.6, Eos # (Auto) 0.0, Baso # (Auto) 0.00 08/21/17 19:59: POC Glucose (mg/dL) 71 - RAD Interpretation Radiology Orders: 08/21/17 20:20 CHEST PORTABLE [RAD] Stat - Medication Orders Current Medication Orders: Discontinued Medications Sodium Chloride (Sodium Chloride 0.9%) 1,000 mls @ 999 mls/hr IV .Q1H1M STA Stop: 08/21/17 21:21 Last Admin: 08/21/17 20:29 Dose: 999 mls/hr eMAR Start Stop Document 08/21/17 20:29 DUSTIN (Rec: 08/21/17 20:29 DUSTIN [id number]) Intravenous Solution Start Date 08/21/17 Start Time 20:29 Disposition/Present on Arrival - Present on Arrival Any Indicators Present on Arrival: No History of DVT/PE: No History of Uncontrolled Diabetes: No Urinary Catheter: No History of Decub. Ulcer: No History Surgical Site Infection Following: None - Disposition Have Diagnosis and Disposition been Completed?: Yes Diagnosis: Lactic acidosis, Dehydration Disposition: HOSPITALIZED Disposition Time: 23:55 Patient Plan: Observation Condition: FAIR
[2017-08-21 20:53] LABS: VENOUS BLOOD GAS BASE EXCESS 0.3 mmol/L (0.0-2.0); VENOUS BLOOD GAS PO2 27 mm/Hg (30-55); VENOUS BLOOD PH 7.32 (7.32-7.43)
[2017-08-21 20:56] LABS: EOS % 0.4 % (1.5-5.0); GRAN # 8.48 (1.4-6.5); GRAN % 86.4 % (50.0-68.0); HEMOGLOBIN 12.3 g/dL (14.0-18.0); LYMPH # 0.8 (1.2-3.4); LYMPH % 7.6 % (22.0-35.0); MEAN CELL VOLUME 87.2 fl (80.0-105.0); MEAN CORPUSCULAR HEMOGLOBIN 27.2 pg (25.0-35.0); MEAN CORPUSCULAR HGB CONC 31.2 g/dl (31.0-37.0); MEAN PLATELET VOLUME 10.7 fl (7.0-11.0); MONO # 0.6 (0.1-0.6); MONO % 5.6 % (1.0-6.0); RBC 4.52 10^6/uL (3.5-6.1); RED CELL DISTRIBUTION WIDTH 14.5 % (11.5-14.5); WHITE BLOOD COUNT 9.8 10^3/ul (4.5-11.0)
[2017-08-21 21:00] LABS: ALB/GLOB RATIO 1.1 (1.1-1.8); ALBUMIN 3.4 g/dL (3.0-4.8); ALT/SGPT 23 U/L (7-56); AST/SGOT 27 U/L (17-59); BLOOD UREA NITROGEN 25 mg/dL (7-21); GFR AFRICAN-AMERICAN > 60; GFR NON-AFRICAN AMERICAN 51; LIPASE 92 U/L (23-300)
[2017-08-21 21:11] LABS: TROPONIN I 0.04 ng/mL
[2017-08-21 21:13] LABS: INR 1.14 (0.93-1.08); PARTIAL THROMBOPLASTIN TIME 30.1 Seconds (25.1-36.5)
[2017-08-21 22:55] LABS: PH,URINE 5.5 (4.7-8.0); URINE BILIRUBIN SMALL (NEGATIVE); URINE BLOOD TRACE-INTACT (NEGATIVE); URINE GLUCOSE (UA) NEGATIVE (NEGATIVE); URINE LEUKOCYTE ESTERASE NEGATIVE Leu/uL (NEGATIVE); URINE PROTEIN TRACE mg/dL (<30 mg/dL); URINE UROBILINOGEN 0.2 E.U./dL (<1 E.U./dL)
[2017-08-21 22:56] LABS: URINE APPEARANCE CLEAR (CLEAR); URINE COLOR YELLOW (YELLOW)
[2017-08-21 23:04] LABS: URINE BACTERIA FEW (NEG); URINE EPITHELIAL CELLS 0 - 2 /hpf (0-5); URINE WBC 0 - 2 /hpf (0-6)
[2017-08-21 23:28] LABS: BARBITURATES, UR NEGATIVE (NEGATIVE); BENZODIAZEPINES, UR POSITIVE (NEGATIVE); OPIATES, UR POSITIVE (NEGATIVE); PHENCYCLIDINE, UR NEGATIVE (NEGATIVE)
[2017-08-22 00:17] LABS: VENOUS BLOOD GAS PO2 146 mm/Hg (30-55); VENOUS BLOOD PH 7.43 (7.32-7.43)
--- NOTE | 2017-08-22 00:54 | CP.PCM.HP ---
"History of Present Illness - History of Present Illness History of Present Illness: Patient is a 67 year old male with PMHx of Afib, Hep C, seizure, DVT, Diabetes who was recently admitted on 08/15/17 for evaluation and treatment of mechanical fall. 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 Patient was discharged on the afternoon of 08/21/17 and returned the same evening with symptoms of generalized weakness. Per ED attending, patient was unable to go home due to the generalized weakness and returned to [facility]. At this time, patient is altered. He is oriented to place and self but not time. He is only able answer yes or no questions and denied a 12-point review of systems including fever, chills, chest pain, SOB, abdominal pain, nausea, vomiting, changes in bowel habits or urinary symptoms. ROS: As stated above. PMH: CAD s/p CABG, visual problems, atrial fibrillation (on xarelto), h/o DVTs, IDDM2, peripheral neuropathy, pancreatic CA with Mets. PSH: CABG in 2010 FMH: CAD and htn in the family. SH: former smoker tobacco, quit over 2 decades ago, denies etoh, occasional marijuana use, Lives alone, walks with a cane, [facility] ALL: Acetaminophen and oxycodone Meds: See EMAR for complete list [facility] Present on Admission - Present on Admission Any Indicators Present on Admission: No Review of Systems - Review of Systems All systems: reviewed and no additional remarkable complaints except (As per HPI ) Review of Systems: As per HPI Past Patient History - Infectious Disease Hx of Infectious Diseases: None - Tetanus Immunizations Tetanus Immunization: Unknown - Past Medical History & Family History Past Medical History?: Yes - Past Social History Smoking Status: Former Smoker - CARDIAC Hx Cardiac Disorders: Yes (rhinoplasty) Hx Congestive Heart Failure: Yes Hx Hypertension: Yes - PULMONARY Hx Chronic Obstructive Pulmonary Disease (COPD): No - NEUROLOGICAL HX Cerebrovascular Accident: No - HEENT Hx HEENT Problems: Yes Hx Blind: Yes (left eye legally blind) Hx Cataracts: No Hx Deafness: No Hx Difficulty Chewing: Yes (needs dentures. no upper teeth) Hx Epistaxis: No Hx Glaucoma: No Hx Macular Degeneration: No - RENAL Hx Renal Failure: No - ENDOCRINE/METABOLIC Hx Diabetes Mellitus Type 2: Yes - HEMATOLOGICAL/ONCOLOGICAL Hx Blood Disorders: Yes Hx AIDS: No Hx Anemia: No Hx Cancer: No Hx Chemotherapy: No Hx Cirrhosis: No Hx Hemophilia: No Hx Hepatitis A: No Hx Hepatitis B: No Hx Hepatitis C: Yes Hx Metastesis: No Hx Shingles: No Hx Sickle Cell Disease: No Hx Unexplained Bleeding: No - INTEGUMENTARY Hx Dermatological Problems: No Hx Basil Cell: No Hx Eczema: No Hx Melanoma: No Hx Psoriasis: No Hx Squamous Cell: No - MUSCULOSKELETAL/RHEUMATOLOGICAL Hx Musculoskeletal Disorders: Yes Hx Falls: Yes Hx Unsteady Gait: Yes - GASTROINTESTINAL Hx Gastrointestinal Disorders: Yes (hiatal hernia) Hx Colostomy: No Hx Crohn's Disease: No Hx Diverticulitis: No Hx Gall Bladder Disease: No Hx Gastroesophageal Reflux: Yes Hx Ileostomy: No Hx Liver Failure: No Hx Pancreatitis: No HX Swallowing Problems: No - GENITOURINARY/GYNECOLOGICAL Hx Genitourinary Disorders: No Hx Hematuria: No Hx Incontinence: No Hx Prostate Problems: No Hx Sexually Transmitted Disorders: No Hx Urinary Tract Infection: No - PSYCHIATRIC Hx Substance Use: Yes - SURGICAL HISTORY Hx Amputation: No Hx Appendectomy: No Hx Cardiac Catheterization: Yes Hx Cholecystectomy: No Hx Coronary Stent: Yes Hx Gastric Bypass Surgery: No Hx Hysterectomy: No Hx Joint Replacement: No Hx Kidney Transplant: No Hx Liver Transplant: No Hx Mastectomy: No Hx Musculoskeletal Surgery: (rhinoplasty) Hx Open Heart Surgery: Yes (CABG) Hx Orthopedic Surgery: No Hx Splenectomy: No Hx Valve Replacement: No - ANESTHESIA Hx Anesthesia: Yes Hx Anesthesia Reactions: No Hx Malignant Hyperthermia: No Meds Allergies/Adverse Reactions: Allergies Allergy/AdvReac Type Severity Reaction Status Date / Time acetaminophen [From Percocet] Allergy .hallucinat Verified 08/21/17 20:07 ions oxycodone [From Percocet] Allergy RASH Verified 08/21/17 20:07 warfarin [From Coumadin] Allergy RASH Verified 08/21/17 20:07 Physical Exam - Constitutional Appears: Toxic, No Acute Distress, Older Than Stated Age, Chronically Ill - Head Exam Head Exam: NORMOCEPHALIC - Eye Exam Eye Exam: Normal appearance. absent: Conjunctival injection, Scleral icterus - ENT Exam ENT Exam: Mucous Membranes Dry - Respiratory Exam Respiratory Exam: Decreased Breath Sounds (Right Lower Lung Base), Clear to Auscultation Bilateral. absent: Rales, Rhonchi, Wheezes, Respiratory Distress Additional comments: Nasal [place] - Cardiovascular Exam Cardiovascular Exam: Tachycardia, Irregular Rhythm. absent: JVD - GI/Abdominal Exam GI & Abdominal Exam: Distended, Hypoactive Bowel Sounds, Soft. absent: Firm, Guarding, Mass, Tenderness - Extremities Exam Extremities exam: Positive for: pedal edema (+1 Bilaterally). Negative for: tenderness Additional comments: Cool distal lower extremities b/l - Neurological Exam Neurological exam: Altered (Disoriented to time. ) - Psychiatric Exam Psychiatric exam: Flat Affect Additional comments: Severe Thought blocking. - Skin Skin Exam: Mottled (Right Lower Extremity ) Additional comments: Surgical Wound from port-a-cath site in Right chest wall. No drainage noted. Mild Erythema. Midline Chest Wall scar. Results - Vital Signs Recent Vital Signs: Last Vital Signs Temp 97.3 F L 08/21/17 20:02 Pulse 107 H 08/22/17 00:02 Resp 20 08/22/17 00:02 BP 113/81 08/22/17 00:02 Pulse Ox 97 08/22/17 00:02 - Labs Result Diagrams: 08/21/17 20:36 08/21/17 20:36 Assessment & Plan - Assessment and Plan (Free Text) Assessment: Patient is a 67 year old male with PMHx of Afib, Hep C, seizure, DVT, Diabetes who was readmitted for evaluation and treatment of generalized weakness Plan: Generalized Weakness - likely secondary to poor PO intake - head CT (08/15)- Stable unenhanced head CT with no suspicious interval findings. Age-related neuro degenerative changes, chronic lobar infarction left frontal lobe - CXR (08/15) - No interval acute cardiopulmonary disease appreciated - CXR (Adm) - Right lower lobe consolidation vs effusion. New from previous admission. Afebrile, No White Count. Elevated Lactate - high risk fall precautions - Physical Therapy Consulted - Blood/Urine Cultures - ABG - ProCal - Consider Empiric Antibiotics. Adenocarcinoma of the Upper GI/Pancreatobiliary Origin; Abdominal Pain: - CT of abdomen/pelvis from 08/04/17: 1. Necrotic mass in the head of the pancreas with a diffuse and infiltrative component to adjacent lymph node chains extending to the katelyn hepatis. 2. Hepatic metastatic disease. 3. Intra-abdominal and pelvic ascites presumed to be malignant. - Consider reconsulting Heme/Onc, Psych and GI. - previous admission- GI consulted- if pt is proceeding with possible treatment in the future will eventually need outp colonoscopy and EGD - previous admission- IR consulted for biopsy- biopsy performed on 08/06/2017- pathology report indicates adenocarcinoma of the upper GI/pancreatobiliary origin - previous admission heme/onc- Dr. Crowe- prognosis is grave, life expectancy is less than 3 months, single agent chemotherapy vs palliative care - pain control with morphine - portcath placement on 08/20 Atrial Flutter; Hx of Atrial fibrillation - EKG (Prev. Adm)- atrial flutter with variable av block with premature ventricular or aberrantly conducted complexes HR 149, QTc 475 - EKG (Current Adm) - A-fib with RVR. PENDING Official Read. - Cardizem 120mg daily | lopressor 50mg BID | Digoxin -.125mg 1400 Decreased Appetite -NPO -Swallow Eval then PO intake if passed. -Consider Appetite Stimulant Hx of IDDM2 - Hold Anti-diabetic Medications until patient is not NPO - ACHS - levemir 15 units bid (Held) - ISS Regular Hx of Seizure disorders - will continue with keppra 500 mg bid - Seizure and fall precaution Hx of CAD s/p CABG - continue with Lopressor - continue with Lipitor Hx of Peripheral neuropathy -continue with gabapentinUS Hx of Anxiety - continue xanax 0.5 mg bid prn Gait instability - high risk fall precautions - PT eval Prophylaxis - DVT prophylaxis- Xarelto - GI prophylaxis - on protonix Patient discussed with Attending, Dr. Reza Rush, PGY - 1"
[2017-08-22] MEDS ORDERED: Sodium Chloride 0.9% 1,000 ML IV SCH (01:30)
[2017-08-22 01:36] LABS: ARTERIAL BLOOD GAS HCO3 25.6 mmol/L (21-28); ARTERIAL BLOOD GAS HEMOGLOBIN 11.1 g/dL (11.7-17.4); ARTERIAL BLOOD GAS O2 CAPACITY 15.1 mL/dl (16-24); ARTERIAL BLOOD GAS O2 CONTENT 14.6 ML/dl (15-23); ARTERIAL BLOOD GAS O2 SAT 96.6 % (95-98); ARTERIAL BLOOD GAS PCO2 36 mm/Hg (35-45); ARTERIAL BLOOD GAS PH 7.46 (7.35-7.45); ARTERIAL BLOOD GAS TCO2 26.7 mmol.L (22-28)
[2017-08-22] MEDS ORDERED: Morphine 4 mg/ml ISec IVP PRN (01:44)
[2017-08-22] MEDS: Pantoprazole 40 mg EC Tab PO SCH (05:45)
[2017-08-22 06:57] LABS: BASO # 0.01 K/mm3 (0.0-2.0); BASO % 0.1 % (0.0-3.0); EOS # 0.1 (0.0-0.7); EOS % 0.8 % (1.5-5.0); GRAN # 5.89 (1.4-6.5); GRAN % 78.1 % (50.0-68.0); HEMOGLOBIN 11.2 g/dL (14.0-18.0); LYMPH # 0.8 (1.2-3.4); LYMPH % 9.9 % (22.0-35.0); MEAN CELL VOLUME 87.3 fl (80.0-105.0); MEAN CORPUSCULAR HEMOGLOBIN 26.9 pg (25.0-35.0); MEAN CORPUSCULAR HGB CONC 30.9 g/dl (31.0-37.0); MEAN PLATELET VOLUME 11.2 fl (7.0-11.0); MONO # 0.8 (0.1-0.6); MONO % 11.1 % (1.0-6.0); RBC 4.16 10^6/uL (3.5-6.1); RED CELL DISTRIBUTION WIDTH 14.5 % (11.5-14.5); WHITE BLOOD COUNT 7.6 10^3/ul (4.5-11.0)
--- NOTE | 2017-08-22 07:05 | RAD ---
HISTORY: general weakness COMPARISON: 08/15/2017 FINDINGS: LUNGS: New right lower lobe infiltrate. PLEURA: New right pleural effusion. CARDIOVASCULAR: Cardiomegaly/midline sternotomy changes are stable. Venous access catheter in satisfactory position. OSSEOUS STRUCTURES: No significant abnormalities. VISUALIZED UPPER ABDOMEN: Normal. OTHER FINDINGS: None. IMPRESSION: New right lower lobe infiltrate and right pleural effusion.
[2017-08-22 07:51] LABS: ALT/SGPT 18 U/L (7-56); AST/SGOT 28 U/L (17-59); BLOOD UREA NITROGEN 26 mg/dL (7-21); CALCIUM 8.9 mg/dL (8.4-10.5); GFR AFRICAN-AMERICAN > 60; GFR NON-AFRICAN AMERICAN 55
[2017-08-22] MEDS: Insulin Reg-MEDIUM-Coverage SC SCH ×4 (08:03→21:42)
--- NOTE | 2017-08-22 09:35 | CT ---
PROCEDURE: CT HEAD WITHOUT CONTRAST. HISTORY: lethargy COMPARISON: CT 08/15/2017 TECHNIQUE: Axial computed tomography images were obtained through the head/brain without intravenous contrast. Radiation dose: Total exam DLP = 890 mGy-cm. This CT exam was performed using one or more of the following dose reduction techniques: Automated exposure control, adjustment of the mA and/or kV according to patient size, and/or use of iterative reconstruction technique. FINDINGS: HEMORRHAGE: No intracranial hemorrhage. BRAIN: No mass effect or edema. There is a small area of encephalomalacia in the right frontal lobe. There is a larger area of encephalomalacia in the left anterior frontal lobe. There are no acute findings VENTRICLES: Unremarkable. No hydrocephalus. CALVARIUM: Unremarkable. PARANASAL SINUSES: Unremarkable as visualized. No significant inflammatory changes. MASTOID AIR CELLS: Unremarkable as visualized. No inflammatory changes. OTHER FINDINGS: None. IMPRESSION: No acute findings
[2017-08-22] MEDS: diltiaZEM 120 mg/24 Hours CD Cap PO SCH (10:02)
--- NOTE | 2017-08-22 11:20 | US ---
HISTORY: Dehydration, lactic acidosis COMPARISON: 12/05/2016 abdominal ultrasound. 08/04/[address] TECHNIQUE: Sonographic evaluation of the abdomen. FINDINGS: LIVER: Measures 19.4 cm. Hepatopedal blood flow. Fatty infiltration manifest ultrasonographically as increased echogenicity of the liver parenchyma. Tumor identified in the left hepatic lobe better visualized on prior CT scan. Small masses identified in both right and left hepatic lobes GALLBLADDER: Unremarkable. No gallstones. COMMON BILE DUCT: Measures 6.6 mm. No stones. No dilatation. PANCREAS: Unremarkable as visualized. No mass. No ductal dilatation. RIGHT KIDNEY: Measures 5.6 x 11.5cm. Normal echogenicity. No calculus, mass, or hydronephrosis. Upper pole cyst 2 x 1.9 cm LEFT KIDNEY: Measures 5.5 x 10.8cm. Normal echogenicity. No calculus, mass, or hydronephrosis. Midpole cysts 3.3 x 3.2 cm and 1.5 x 2 cm SPLEEN: Splenomegaly. Orthogonal measurements 7.1 x 6.2 x 14.7 AORTA: No aneurysmal dilatation. IVC: Unremarkable. OTHER FINDINGS: Intra-abdominal ascites incompletely visualized. IMPRESSION: Hepatic steatosis, hepatic metastatic disease. Findings identified with a greater degree of clarity on the recent CT scan. Splenomegaly. Intra-abdominal ascites.
[2017-08-22] MEDS: Digoxin 125 mcg (0.125 mg) Tab PO SCH (14:36)
--- NOTE | 2017-08-22 18:56 | CARD ---
APPROVED REPORT EKG Measurement Heart [id number] <Conclusion> Atrial fibrillation with rapid ventricular response ST & T wave abnormality, consider inferolateral ischemia or digitalis effect Abnormal ECG
[2017-08-23] MEDS: Pantoprazole 40 mg EC Tab PO SCH (05:38)
[2017-08-23 06:58] LABS: BASO # 0.02 K/mm3 (0.0-2.0); BASO % 0.2 % (0.0-3.0); EOS % 0.2 % (1.5-5.0); GRAN # 8.6 (1.4-6.5); GRAN % 82.4 % (50.0-68.0); HEMOGLOBIN 11.9 g/dL (14.0-18.0); LYMPH # 1.1 (1.2-3.4); LYMPH % 10.3 % (22.0-35.0); MEAN CELL VOLUME 88.9 fl (80.0-105.0); MEAN CORPUSCULAR HGB CONC 30.4 g/dl (31.0-37.0); MEAN PLATELET VOLUME 11.3 fl (7.0-11.0); MONO # 0.7 (0.1-0.6); MONO % 6.9 % (1.0-6.0); RBC 4.41 10^6/uL (3.5-6.1); RED CELL DISTRIBUTION WIDTH 14.5 % (11.5-14.5); WHITE BLOOD COUNT 10.4 10^3/ul (4.5-11.0)
[2017-08-23 07:02] LABS: ALB/GLOB RATIO 1.1 (1.1-1.8); ALBUMIN 3.5 g/dL (3.0-4.8); ALT/SGPT 14 U/L (7-56); AST/SGOT 35 U/L (17-59); BLOOD UREA NITROGEN 24 mg/dL (7-21); CALCIUM 9.3 mg/dL (8.4-10.5); GFR AFRICAN-AMERICAN > 60; GFR NON-AFRICAN AMERICAN > 60
[2017-08-23] MEDS: Insulin Reg-MEDIUM-Coverage SC SCH ×4 (08:41→22:00)
[2017-08-23] MEDS: diltiaZEM 120 mg/24 Hours CD Cap PO SCH (09:07)
--- NOTE | 2017-08-23 12:12 | CP.PCM.PN ---
"<Ankur Mccoy - Last Filed: 08/23/17 11:50> Subjective - Date & Time of Evaluation Date of Evaluation: 08/23/17 Time of Evaluation: 11:50 - Subjective Subjective: Medicine Progress Note Pt seen and examined at bedside. No acute overnight events. Pt's son at bedside wants father discharged tomorrow where he will take him to the NH for care. Pt denies CP, SOB, n/v/d, abdominal pain, fever, chills, CASTRO, or dizziness. Objective - Vital Signs/Intake and Output Vital Signs (last 24 hours): Temp Pulse Resp BP Pulse Ox 97.4 F L 105 H 20 122/71 94 L 08/23/17 08:35 08/23/17 09:08 08/23/17 08:35 08/23/17 09:08 08/23/17 08:35 Intake and Output: 08/23/17 08/23/17 06:59 18:59 Intake Total 240 360 Output Total 100 300 Balance 140 60 - Medications Medications: Current Medications Alprazolam (Xanax) 0.5 mg PO DAILY PRN; Protocol PRN Reason: Anxiety Last Admin: 08/22/17 14:36 Dose: 0.5 mg Aspirin (Ecotrin) 81 mg PO DAILY [facility] Atorvastatin Calcium (Lipitor) 40 mg PO DIN [facility] Last Admin: 08/22/17 17:11 Dose: 40 mg Digoxin (Digoxin) 0.125 mg PO 1400 [facility] Last Admin: 08/22/17 14:36 Dose: 0.125 mg Diltiazem HCl (Cardizem Cd) 120 mg PO DAILY [facility] Last Admin: 08/23/17 09:07 Dose: 120 mg Gabapentin (Neurontin) 300 mg PO TID [facility] PRN Reason: Protocol Last Admin: 08/23/17 09:07 Dose: 300 mg Insulin Detemir (Levemir) 20 unit SC Q12 [facility] Insulin Human Regular (Humulin R Med) 0 units SC ACHS [facility] PRN Reason: Protocol Last Admin: 08/23/17 08:41 Dose: 1 units Levetiracetam (Keppra) 500 mg PO Q12 [facility] Last Admin: 08/23/17 09:07 Dose: 500 mg Metoprolol Tartrate (Lopressor) 50 mg PO BID [facility] Last Admin: 08/23/17 09:08 Dose: 50 mg Pantoprazole Sodium (Protonix Ec Tab) 40 mg PO 0600 [facility] Last Admin: 08/23/17 05:38 Dose: 40 mg Paroxetine HCl (Paxil) 10 mg PO HS [facility] Last Admin: 08/22/17 21:18 Dose: 10 mg Rivaroxaban (Xarelto) 15 mg PO DAILY [facility] PRN Reason: Protocol Thiamine HCl (Vitamin B1 Tab) 100 mg PO DAILY [facility] Last Admin: 08/23/17 09:08 Dose: 100 mg - Labs Labs: 08/23/17 05:30 08/23/17 05:30 PT 13.0 SECONDS (9.4-12.5) H 08/21/17 20:36 INR 1.14 (0.93-1.08) H 08/21/17 20:36 APTT 30.1 Seconds (25.1-36.5) 08/21/17 20:36 - Constitutional Appears: No Acute Distress - Head Exam Head Exam: NORMAL INSPECTION - Eye Exam Eye Exam: Normal appearance - ENT Exam ENT Exam: Mucous Membranes Moist, Normal Exam - Neck Exam Neck Exam: Normal Inspection - Respiratory Exam Respiratory Exam: Clear to Ausculation Bilateral. absent: Rales, Rhonchi, Wheezes - Cardiovascular Exam Cardiovascular Exam: RRR, +S1, +S2. absent: Gallop, Rubs, Murmur - GI/Abdominal Exam GI & Abdominal Exam: Soft. absent: Distended, Guarding, Tenderness, Rebound - Extremities Exam Extremities Exam: Normal Inspection - Back Exam Back Exam: NORMAL INSPECTION - Neurological Exam Neurological Exam: Alert, Awake, CN II-XII Intact, Oriented x3 - Psychiatric Exam Psychiatric exam: Normal Affect, Normal Mood - Skin Skin Exam: Dry, Intact, Normal Color, Warm Assessment and Plan - Assessment and Plan (Free Text) Assessment: Patient is a 67 year old male with PMHx of Afib, Hep C, seizure, DVT, Diabetes who was readmitted for evaluation and treatment of generalized weakness Plan: Generalized Weakness - likely secondary to poor PO intake - head CT (08/15)- Stable unenhanced head CT with no suspicious interval findings. Age-related neuro degenerative changes, chronic lobar infarction left frontal lobe - CXR (08/15) - No interval acute cardiopulmonary disease appreciated - CXR (Adm) - Right lower lobe consolidation vs effusion. New from previous admission. Afebrile, No White Count. Elevated Lactate - high risk fall precautions - Physical Therapy Consulted - Blood/Urine Cultures - ABG - ProCal 0.60 Adenocarcinoma of the Upper GI/Pancreatobiliary Origin; Abdominal Pain: - CT of abdomen/pelvis from 08/04/17: 1. Necrotic mass in the head of the pancreas with a diffuse and infiltrative component to adjacent lymph node chains extending to the katelyn hepatis. 2. Hepatic metastatic disease. 3. Intra-abdominal and pelvic ascites presumed to be malignant. - Previous admission GI consulted- if pt is proceeding with possible treatment in the future will eventually need outp colonoscopy and EGD IR consulted for biopsy- biopsy performed on 08/06/2017- pathology report indicates adenocarcinoma of the upper GI/pancreatobiliary origin heme/onc- Dr. Crowe- prognosis is grave, life expectancy is less than 3 months, single agent chemotherapy vs palliative care - pain control with morphine - portcath placement on 08/20 Atrial Flutter; Hx of Atrial fibrillation - EKG showed atrial fibrillation with RVR, rate 105, ST and T wave abnormality - Cardizem 120mg daily | lopressor 50mg BID | Digoxin -.0125mg 1400 Hx of IDDM2 - ACHS - levemir 15 units bid (Held) - ISS Regular Hx of Seizure disorders - Continue with keppra 500 mg bid - Seizure and fall precaution Hx of CAD s/p CABG - continue with Lopressor - continue with Lipitor Hx of Peripheral neuropathy -continue with gabapentin Hx of Anxiety - continue xanax 0.5 mg bid prn Gait instability - high risk fall precautions - PT eval Prophylaxis - DVT prophylaxis- Xarelto - GI prophylaxis - on protonix Patient seen and discussed in detail with Dr. Tim. Luis Mccoy, PGY1 <Germain Tim - Last Filed: 08/23/17 15:36> Objective - Vital Signs/Intake and Output Vital Signs (last 24 hours): Temp Pulse Resp BP Pulse Ox 97.4 F L 105 H 20 122/71 94 L 08/23/17 08:35 08/23/17 09:08 08/23/17 08:35 08/23/17 09:08 08/23/17 08:35 Intake and Output: 08/23/17 08/23/17 06:59 18:59 Intake Total 240 360 Output Total 100 300 Balance 140 60 - Medications Medications: Current Medications Alprazolam (Xanax) 0.5 mg PO DAILY PRN; Protocol PRN Reason: Anxiety Last Admin: 08/22/17 14:36 Dose: 0.5 mg Aspirin (Ecotrin) 81 mg PO DAILY [facility] Atorvastatin Calcium (Lipitor) 40 mg PO DIN [facility] Last Admin: 08/22/17 17:11 Dose: 40 mg Digoxin (Digoxin) 0.125 mg PO 1400 [facility] Last Admin: 08/23/17 13:02 Dose: 0.125 mg Diltiazem HCl (Cardizem Cd) 120 mg PO DAILY [facility] Last Admin: 08/23/17 09:07 Dose: 120 mg Gabapentin (Neurontin) 300 mg PO TID [facility] PRN Reason: Protocol Last Admin: 08/23/17 13:01 Dose: 300 mg Insulin Detemir (Levemir) 20 unit SC Q12 [facility] Insulin Human Regular (Humulin R Med) 0 units SC ACHS [facility] PRN Reason: Protocol Last Admin: 08/23/17 12:28 Dose: 1 units Levetiracetam (Keppra) 500 mg PO Q12 [facility] Last Admin: 08/23/17 09:07 Dose: 500 mg Metoprolol Tartrate (Lopressor) 50 mg PO BID [facility] Last Admin: 08/23/17 09:08 Dose: 50 mg Morphine Sulfate (Morphine) 1 mg IVP Q4H PRN PRN Reason: Pain, severe (8-10) Pantoprazole Sodium (Protonix Ec Tab) 40 mg PO 0600 [facility] Last Admin: 08/23/17 05:38 Dose: 40 mg Paroxetine HCl (Paxil) 10 mg PO HS [facility] Last Admin: 08/22/17 21:18 Dose: 10 mg Rivaroxaban (Xarelto) 15 mg PO DAILY [facility] PRN Reason: Protocol Thiamine HCl (Vitamin B1 Tab) 100 mg PO DAILY [facility] Last Admin: 08/23/17 09:08 Dose: 100 mg - Labs Labs: 08/23/17 05:30 08/23/17 05:30 PT 13.0 SECONDS (9.4-12.5) H 08/21/17 20:36 INR 1.14 (0.93-1.08) H 08/21/17 20:36 APTT 30.1 Seconds (25.1-36.5) 08/21/17 20:36 Attending/Attestation - Attestation I have personally seen and examined this patient.: Yes I have fully participated in the care of the patient.: Yes I have reviewed all pertinent clinical information, including history, physical exam and plan: Yes Notes (Text): 08/23/17 15:26 attending note; Patient seen and examined with resident. Patient's son by the bedside. Patients friend Kaden by the bedside. Patient is a 67 year old male with PMhx of Afib, Hep C, diabetes, seizure, Diabetes, recently diagnosed GI /hepatobiliary adenocarcinoma is admitted with confusion. Patient was discharged home yesterday. Patient came back within few hours. Patient was confused at the time of admission. CT head is negative. Urine drug screen showed Opiates, benzos and marijuana. A. fib; heart rate is controlled. Continue metoprolol,Cardizem and digoxin. continue aspirin and xarelto. Recently diagnosed GI/hepatobiliary adenocarcinoma. Patient will follow-up with oncology clinic [facility] for further treatment. Anxiety;continue Xanax and Paxil. diabetes; continue regular insulin sliding scale and Levemir. PT evaluation appreciated. Home with services recommended. Poor social support. Possible unsafe situation at home. Prognosis is poor. case discussed with patient's son in detail. Son is making arrangements For his father to go to NH tomorrow."
[2017-08-23] MEDS: Digoxin 125 mcg (0.125 mg) Tab PO SCH (13:02)
[2017-08-24] MEDS: Pantoprazole 40 mg EC Tab PO SCH (06:05)
[2017-08-24 07:22] LABS: BASO # 0.01 K/mm3 (0.0-2.0); BASO % 0.1 % (0.0-3.0); EOS # 0.1 (0.0-0.7); EOS % 0.6 % (1.5-5.0); GRAN # 6.94 (1.4-6.5); GRAN % 81.1 % (50.0-68.0); HEMOGLOBIN 11.6 g/dL (14.0-18.0); LYMPH # 0.8 (1.2-3.4); LYMPH % 9.7 % (22.0-35.0); MEAN CORPUSCULAR HEMOGLOBIN 26.8 pg (25.0-35.0); MEAN CORPUSCULAR HGB CONC 30.4 g/dl (31.0-37.0); MEAN PLATELET VOLUME 11.1 fl (7.0-11.0); MONO # 0.7 (0.1-0.6); MONO % 8.5 % (1.0-6.0); RBC 4.33 10^6/uL (3.5-6.1); RED CELL DISTRIBUTION WIDTH 14.3 % (11.5-14.5); WHITE BLOOD COUNT 8.6 10^3/ul (4.5-11.0)
[2017-08-24 08:00] LABS: ALB/GLOB RATIO 1.1 (1.1-1.8); ALBUMIN 3.1 g/dL (3.0-4.8); ALT/SGPT 21 U/L (7-56); AST/SGOT 27 U/L (17-59); BLOOD UREA NITROGEN 23 mg/dL (7-21); CALCIUM 9.2 mg/dL (8.4-10.5); GFR AFRICAN-AMERICAN > 60; GFR NON-AFRICAN AMERICAN > 60
[2017-08-24] MEDS: diltiaZEM 120 mg/24 Hours CD Cap PO SCH (09:19)
[2017-08-24] MEDS: Insulin Reg-MEDIUM-Coverage SC SCH ×4 (09:20→21:22)
--- NOTE | 2017-08-24 11:53 | CP.PCM.PN ---
"<Ankur Mccoy - Last Filed: 08/24/17 11:49> Subjective - Date & Time of Evaluation Date of Evaluation: 08/24/17 Time of Evaluation: 11:51 - Subjective Subjective: Medicine Progress Note Pt seen and examined at bedside. No acute overnight events. Social situation was again explained to patient and son. Son states that he cannot care for his father and does not want him discharged today. Patient will stay overnight and situation will be discussed with telephonic case manager regarding [facility]. Pt denies CP, SOB, n/v/d, abdominal pain, fever, chills, CASTRO, or dizziness. Objective - Vital Signs/Intake and Output Vital Signs (last 24 hours): Temp Pulse Resp BP Pulse Ox 97 F L 76 19 138/78 93 L 08/24/17 08:24 08/24/17 09:19 08/24/17 08:24 08/24/17 09:19 08/24/17 08:24 - Medications Medications: Current Medications Alprazolam (Xanax) 0.5 mg PO DAILY PRN; Protocol PRN Reason: Anxiety Last Admin: 08/23/17 21:57 Dose: 0.5 mg Aspirin (Ecotrin) 81 mg PO DAILY [facility] Atorvastatin Calcium (Lipitor) 40 mg PO DIN [facility] Last Admin: 08/23/17 18:21 Dose: 40 mg Digoxin (Digoxin) 0.125 mg PO 1400 [facility] Last Admin: 08/23/17 13:02 Dose: 0.125 mg Diltiazem HCl (Cardizem Cd) 120 mg PO DAILY [facility] Last Admin: 08/24/17 09:19 Dose: 120 mg Gabapentin (Neurontin) 300 mg PO TID [facility] PRN Reason: Protocol Last Admin: 08/24/17 09:19 Dose: 300 mg Insulin Detemir (Levemir) 20 unit SC Q12 [facility] Insulin Human Regular (Humulin R Med) 0 units SC ACHS [facility] PRN Reason: Protocol Last Admin: 08/24/17 09:20 Dose: 1 units Levetiracetam (Keppra) 500 mg PO Q12 [facility] Last Admin: 08/24/17 09:19 Dose: 500 mg Metoprolol Tartrate (Lopressor) 50 mg PO BID [facility] Last Admin: 08/24/17 09:19 Dose: 50 mg Morphine Sulfate (Morphine) 1 mg IVP Q4H PRN PRN Reason: Pain, severe (8-10) Pantoprazole Sodium (Protonix Ec Tab) 40 mg PO 0600 [facility] Last Admin: 08/24/17 06:05 Dose: 40 mg Paroxetine HCl (Paxil) 10 mg PO HS [facility] Last Admin: 08/23/17 21:49 Dose: 10 mg Rivaroxaban (Xarelto) 15 mg PO DAILY [facility] PRN Reason: Protocol Last Admin: 08/24/17 09:19 Dose: 15 mg Thiamine HCl (Vitamin B1 Tab) 100 mg PO DAILY [facility] Last Admin: 08/24/17 09:19 Dose: 100 mg - Labs Labs: 08/24/17 06:30 08/24/17 06:30 PT 13.0 SECONDS (9.4-12.5) H 08/21/17 20:36 INR 1.14 (0.93-1.08) H 08/21/17 20:36 APTT 30.1 Seconds (25.1-36.5) 08/21/17 20:36 - Constitutional Appears: No Acute Distress, Chronically Ill - Head Exam Head Exam: NORMAL INSPECTION - Eye Exam Eye Exam: Normal appearance Pupil Exam: NORMAL ACCOMODATION - ENT Exam ENT Exam: Normal Exam - Neck Exam Neck Exam: Normal Inspection - Respiratory Exam Respiratory Exam: Clear to Ausculation Bilateral. absent: Chest Wall Tenderness , Rales, Rhonchi, Wheezes, Respiratory Distress - Cardiovascular Exam Cardiovascular Exam: RRR, +S1, +S2. absent: Gallop, Rubs, Murmur - GI/Abdominal Exam GI & Abdominal Exam: Soft. absent: Distended, Guarding, Tenderness, Rebound - Extremities Exam Extremities Exam: Normal Inspection - Back Exam Back Exam: NORMAL INSPECTION - Neurological Exam Neurological Exam: Alert, Awake, CN II-XII Intact, Oriented x3 - Psychiatric Exam Psychiatric exam: Normal Affect, Normal Mood - Skin Skin Exam: Dry, Intact, Normal Color, Warm Assessment and Plan - Assessment and Plan (Free Text) Assessment: Patient is a 67 year old male with PMHx of Afib, Hep C, seizure, DVT, Diabetes who was readmitted for evaluation and treatment of generalized weakness. Plan: Generalized Weakness - likely secondary to poor PO intake - head CT (08/15)- Stable unenhanced head CT with no suspicious interval findings. Age-related neuro degenerative changes, chronic lobar infarction left frontal lobe - CXR (08/15) - No interval acute cardiopulmonary disease appreciated - CXR (Adm) - Right lower lobe consolidation vs effusion. New from previous admission. Afebrile, No White Count. Elevated Lactate - high risk fall precautions - Physical Therapy Consulted - Blood/Urine Cultures - ABG - ProCal 0.60 Adenocarcinoma of the Upper GI/Pancreatobiliary Origin; Abdominal Pain: - CT of abdomen/pelvis from 08/04/17: 1. Necrotic mass in the head of the pancreas with a diffuse and infiltrative component to adjacent lymph node chains extending to the katelyn hepatis. 2. Hepatic metastatic disease. 3. Intra-abdominal and pelvic ascites presumed to be malignant. - Previous admission GI consulted- if pt is proceeding with possible treatment in the future will eventually need outp colonoscopy and EGD IR consulted for biopsy- biopsy performed on 08/06/2017- pathology report indicates adenocarcinoma of the upper GI/pancreatobiliary origin heme/onc- Dr. Crowe- prognosis is grave, life expectancy is less than 3 months, single agent chemotherapy vs palliative care - pain control with morphine - portcath placement on 08/20 Atrial Flutter; Hx of Atrial fibrillation - EKG showed atrial fibrillation with RVR, rate 105, ST and T wave abnormality - Cardizem 120mg daily | lopressor 50mg BID | Digoxin -.0125mg 1400 Hx of IDDM2 - ACHS - levemir 15 units bid (Held) - ISS Regular Hx of Seizure disorders - Continue with keppra 500 mg bid - Seizure and fall precaution Hx of CAD s/p CABG - continue with Lopressor - continue with Lipitor Hx of Peripheral neuropathy -continue with gabapentin Hx of Anxiety - continue xanax 0.5 mg bid prn Gait instability - high risk fall precautions - PT eval Prophylaxis - DVT prophylaxis- Xarelto - GI prophylaxis - on protonix Dispo: Awaiting case management recommendations for discharge options tomorrow as son is unwilling to take responsibility for care of the patient. Patient seen and discussed in detail with Dr. Tim. Luis Mccoy, PGY1 <Germain Tim - Last Filed: 08/24/17 12:25> Objective - Vital Signs/Intake and Output Vital Signs (last 24 hours): Temp Pulse Resp BP Pulse Ox 97 F L 76 19 138/78 93 L 08/24/17 08:24 08/24/17 09:19 08/24/17 08:24 08/24/17 09:19 08/24/17 08:24 - Medications Medications: Current Medications Alprazolam (Xanax) 0.5 mg PO DAILY PRN; Protocol PRN Reason: Anxiety Last Admin: 08/23/17 21:57 Dose: 0.5 mg Aspirin (Ecotrin) 81 mg PO DAILY [facility] Atorvastatin Calcium (Lipitor) 40 mg PO DIN [facility] Last Admin: 08/23/17 18:21 Dose: 40 mg Digoxin (Digoxin) 0.125 mg PO 1400 [facility] Last Admin: 08/23/17 13:02 Dose: 0.125 mg Diltiazem HCl (Cardizem Cd) 120 mg PO DAILY [facility] Last Admin: 08/24/17 09:19 Dose: 120 mg Gabapentin (Neurontin) 300 mg PO TID [facility] PRN Reason: Protocol Last Admin: 08/24/17 09:19 Dose: 300 mg Insulin Detemir (Levemir) 20 unit SC Q12 [facility] Insulin Human Regular (Humulin R Med) 0 units SC ACHS [facility] PRN Reason: Protocol Last Admin: 08/24/17 09:20 Dose: 1 units Levetiracetam (Keppra) 500 mg PO Q12 [facility] Last Admin: 08/24/17 09:19 Dose: 500 mg Metoprolol Tartrate (Lopressor) 50 mg PO BID [facility] Last Admin: 08/24/17 09:19 Dose: 50 mg Morphine Sulfate (Morphine) 1 mg IVP Q4H PRN PRN Reason: Pain, severe (8-10) Pantoprazole Sodium (Protonix Ec Tab) 40 mg PO 0600 [facility] Last Admin: 08/24/17 06:05 Dose: 40 mg Paroxetine HCl (Paxil) 10 mg PO HS [facility] Last Admin: 08/23/17 21:49 Dose: 10 mg Rivaroxaban (Xarelto) 15 mg PO DAILY [facility] PRN Reason: Protocol Last Admin: 08/24/17 09:19 Dose: 15 mg Thiamine HCl (Vitamin B1 Tab) 100 mg PO DAILY [facility] Last Admin: 08/24/17 09:19 Dose: 100 mg - Labs Labs: 08/24/17 06:30 08/24/17 06:30 PT 13.0 SECONDS (9.4-12.5) H 08/21/17 20:36 INR 1.14 (0.93-1.08) H 08/21/17 20:36 APTT 30.1 Seconds (25.1-36.5) 08/21/17 20:36 Attending/Attestation - Attestation I have personally seen and examined this patient.: Yes I have fully participated in the care of the patient.: Yes I have reviewed all pertinent clinical information, including history, physical exam and plan: Yes Notes (Text): 08/24/17 12:23 attending note; Patient seen and examined with resident. Patient's son by the bedside. Patient is a 67 year old male with PMhx of Afib, Hep C, diabetes, seizure, Diabetes, recently diagnosed GI /hepatobiliary adenocarcinoma is admitted with confusion. Patient was discharged home yesterday. Patient came back within few hours. Patient was confused at the time of admission. CT head is negative. Urine drug screen showed Opiates, benzos and marijuana. A. fib; heart rate is controlled. Continue metoprolol,Cardizem and digoxin. continue aspirin and xarelto. Recently diagnosed GI/hepatobiliary adenocarcinoma. Patient will follow-up with oncology clinic at [place] for further treatment. Anxiety;continue Xanax and Paxil. diabetes; continue regular insulin sliding scale and Levemir. PT evaluation appreciated. Home with services recommended. Poor social support. Prognosis is poor. case discussed with patient's son in detail. family is requesting for transfer to [place] hospital. Will discuss with adult protective caseworker/pony worker tomorrow. Patient was denied for inpatient medical admission by [facility] during last hospitalization. upon discharge the patient will follow-up with [facility] clinic."
[2017-08-24] MEDS: Digoxin 125 mcg (0.125 mg) Tab PO SCH (14:43)
[2017-08-24] MEDS: Morphine 4 mg/ml ISec IVP PRN (15:25)
[2017-08-25] MEDS: Morphine 4 mg/ml ISec IVP PRN ×2 (03:42→16:10)
[2017-08-25] MEDS: Pantoprazole 40 mg EC Tab PO SCH (05:44)
[2017-08-25 06:45] LABS: EOS % 0.4 % (1.5-5.0); GRAN # 5.65 (1.4-6.5); GRAN % 82.3 % (50.0-68.0); HEMOGLOBIN 11.5 g/dL (14.0-18.0); LYMPH # 0.6 (1.2-3.4); LYMPH % 8.7 % (22.0-35.0); MEAN CELL VOLUME 85.7 fl (80.0-105.0); MEAN CORPUSCULAR HEMOGLOBIN 26.9 pg (25.0-35.0); MEAN CORPUSCULAR HGB CONC 31.4 g/dl (31.0-37.0); MEAN PLATELET VOLUME 10.8 fl (7.0-11.0); MONO # 0.6 (0.1-0.6); MONO % 8.6 % (1.0-6.0); RBC 4.27 10^6/uL (3.5-6.1); RED CELL DISTRIBUTION WIDTH 14.5 % (11.5-14.5); WHITE BLOOD COUNT 6.9 10^3/ul (4.5-11.0)
[2017-08-25 06:53] LABS: ALBUMIN 2.7 g/dL (3.0-4.8); ALT/SGPT 19 U/L (7-56); AST/SGOT 25 U/L (17-59); BLOOD UREA NITROGEN 20 mg/dL (7-21); CALCIUM 8.6 mg/dL (8.4-10.5); GFR AFRICAN-AMERICAN > 60; GFR NON-AFRICAN AMERICAN > 60
[2017-08-25] MEDS: Insulin Reg-MEDIUM-Coverage SC SCH ×4 (08:42→23:52)
[2017-08-25] MEDS: diltiaZEM 120 mg/24 Hours CD Cap PO SCH (09:24)
--- NOTE | 2017-08-25 14:34 | CP.PCM.PN ---
"<Sorin Lr - Last Filed: 08/25/17 14:30> Subjective - Date & Time of Evaluation Date of Evaluation: 08/25/17 Time of Evaluation: 11:30 - Subjective Subjective: PGY1 Medicine Note for Dr. Chou Patient seen and examined at bedside this morning. No acute events overnight. This has become a social problem as patient's son stated over the weekend that he is no longer able to take care of his father. Social work is currently working on transferring patient to [facility] as this is where he follows up with for his medical care of his chronic conditions and his current pancreatic CA. Patient is very tired but states he is doing well otherwise. Denies fevers, chills, nausea, vomiting, diarrhea, chest pain, palpitations, shortness of breath, abdominal pain, headaches, lightheadedness or dizziness. Objective - Vital Signs/Intake and Output Vital Signs (last 24 hours): Temp Pulse Resp BP Pulse Ox 98 F 72 19 145/84 96 08/25/17 08:09 08/25/17 09:25 08/25/17 08:09 08/25/17 09:25 08/25/17 08:09 - Medications Medications: Current Medications Alprazolam (Xanax) 0.5 mg PO DAILY PRN; Protocol PRN Reason: Anxiety Last Admin: 08/24/17 19:07 Dose: 0.5 mg Aspirin (Ecotrin) 81 mg PO DAILY [facility] Atorvastatin Calcium (Lipitor) 40 mg PO DIN [facility] Last Admin: 08/24/17 19:02 Dose: 40 mg Digoxin (Digoxin) 0.125 mg PO 1400 [facility] Last Admin: 08/24/17 14:43 Dose: 0.125 mg Diltiazem HCl (Cardizem Cd) 120 mg PO DAILY [facility] Last Admin: 08/25/17 09:24 Dose: 120 mg Gabapentin (Neurontin) 300 mg PO TID [facility] PRN Reason: Protocol Last Admin: 08/25/17 09:24 Dose: 300 mg Insulin Detemir (Levemir) 20 unit SC Q12 [facility] Insulin Human Regular (Humulin R Med) 0 units SC ACHS [facility] PRN Reason: Protocol Last Admin: 08/25/17 12:50 Dose: 3 units Levetiracetam (Keppra) 500 mg PO Q12 [facility] Last Admin: 08/25/17 09:24 Dose: 500 mg Metoprolol Tartrate (Lopressor) 50 mg PO BID [facility] Last Admin: 08/25/17 09:25 Dose: 50 mg Morphine Sulfate (Morphine) 1 mg IVP Q4H PRN PRN Reason: Pain, severe (8-10) Last Admin: 08/25/17 03:42 Dose: 1 mg Pantoprazole Sodium (Protonix Ec Tab) 40 mg PO 0600 [facility] Last Admin: 08/25/17 05:44 Dose: 40 mg Paroxetine HCl (Paxil) 10 mg PO HS [facility] Last Admin: 08/24/17 21:38 Dose: 10 mg Rivaroxaban (Xarelto) 15 mg PO DAILY [facility] PRN Reason: Protocol Last Admin: 08/25/17 09:24 Dose: 15 mg Thiamine HCl (Vitamin B1 Tab) 100 mg PO DAILY [facility] Last Admin: 08/25/17 09:24 Dose: 100 mg - Labs Labs: PT 13.0 SECONDS (9.4-12.5) H 08/21/17 20:36 INR 1.14 (0.93-1.08) H 08/21/17 20:36 APTT 30.1 Seconds (25.1-36.5) 08/21/17 20:36 - Constitutional Appears: No Acute Distress, Chronically Ill - Head Exam Head Exam: ATRAUMATIC, NORMOCEPHALIC - Eye Exam Eye Exam: EOMI, Normal appearance - ENT Exam ENT Exam: Mucous Membranes Moist - Neck Exam Neck Exam: absent: Lymphadenopathy - Respiratory Exam Respiratory Exam: Clear to Ausculation Bilateral, NORMAL BREATHING PATTERN. absent: Chest Wall Tenderness, Rales, Rhonchi, Wheezes, Respiratory Distress - Cardiovascular Exam Cardiovascular Exam: REGULAR RHYTHM, +S1, +S2. absent: JVD - GI/Abdominal Exam GI & Abdominal Exam: Soft, Normal Bowel Sounds. absent: Distended, Firm, Guarding, Rigid, Tenderness - Extremities Exam Extremities Exam: absent: Calf Tenderness, Pedal Edema - Neurological Exam Neurological Exam: Alert, Awake, CN II-XII Intact, Oriented x3 - Psychiatric Exam Psychiatric exam: Normal Affect, Normal Mood - Skin Skin Exam: Dry, Warm Assessment and Plan - Assessment and Plan (Free Text) Assessment: Patient is a 67 year old male with PMHx of Afib, Hep C, seizure, DVT, Diabetes who was readmitted for evaluation and treatment of generalized weakness. Plan: Generalized Weakness - likely secondary to poor PO intake - head CT (08/15)- Stable unenhanced head CT with no suspicious interval findings. Age-related neuro degenerative changes, chronic lobar infarction left frontal lobe - CXR (08/15) - No interval acute cardiopulmonary disease appreciated - CXR (Adm) - Right lower lobe consolidation vs effusion. New from previous admission. Afebrile, No White Count. Elevated Lactate - high risk fall precautions - Physical Therapy Consulted - Blood/Urine Cultures - ABG - ProCal 0.60 Adenocarcinoma of the Upper GI/Pancreatobiliary Origin; Abdominal Pain: - CT of abdomen/pelvis from 08/04/17: 1. Necrotic mass in the head of the pancreas with a diffuse and infiltrative component to adjacent lymph node chains extending to the katelyn hepatis. 2. Hepatic metastatic disease. 3. Intra-abdominal and pelvic ascites presumed to be malignant. - Previous admission GI consulted- if pt is proceeding with possible treatment in the future will eventually need outp colonoscopy and EGD IR consulted for biopsy- biopsy performed on 08/06/2017- pathology report indicates adenocarcinoma of the upper GI/pancreatobiliary origin heme/onc- Dr. Crowe- prognosis is grave, life expectancy is less than 3 months, single agent chemotherapy vs palliative care - pain control with morphine - portcath placement on 08/20 Atrial Flutter; Hx of Atrial fibrillation - EKG showed atrial fibrillation with RVR, rate 105, ST and T wave abnormality - Cardizem 120mg daily | lopressor 50mg BID | Digoxin -.0125mg 1400 Hx of IDDM2 - ACHS - levemir 15 units bid (Held) - ISS Regular Hx of Seizure disorders - Continue with keppra 500 mg bid - Seizure and fall precaution Hx of CAD s/p CABG - Patient had an episode of left sided chest pain around 130p today noting the pain in his chest as a pressure. EKG ordered, showing new inverted and depressed T waves in leads V5-V6. Remainder of EKG is unchanged. Troponin ordered and patient placed on remote tele. - continue with Lopressor - continue with Lipitor Hx of Peripheral neuropathy -continue with gabapentin Hx of Anxiety - continue xanax 0.5 mg bid prn Gait instability - high risk fall precautions - PT eval Per PT note, Pt is poorly compliant with therapy, and it took alot of efford just to get him out of the bed. Able to walk 10 ft on his own, before he requested to go back to the bed, saying he's tired. Prophylaxis - DVT prophylaxis- Xarelto - GI prophylaxis - on protonix Dispo: Awaiting case management recommendations for discharge options, currently attempting to transfer patient to [facility] as patient's family is unable to care for him. Case discussed with Dr. José Antonio Hern PGY1 <Heather Chou - Last Filed: 08/25/17 15:23> Objective - Vital Signs/Intake and Output Vital Signs (last 24 hours): Temp Pulse Resp BP Pulse Ox 98 F 72 19 145/84 96 08/25/17 08:09 08/25/17 09:25 08/25/17 08:09 08/25/17 09:25 08/25/17 08:09 - Medications Medications: Current Medications Alprazolam (Xanax) 0.5 mg PO DAILY PRN; Protocol PRN Reason: Anxiety Last Admin: 08/24/17 19:07 Dose: 0.5 mg Aspirin (Ecotrin) 81 mg PO DAILY [facility] Atorvastatin Calcium (Lipitor) 40 mg PO DIN [facility] Last Admin: 08/24/17 19:02 Dose: 40 mg Digoxin (Digoxin) 0.125 mg PO 1400 [facility] Last Admin: 08/25/17 14:46 Dose: 0.125 mg Diltiazem HCl (Cardizem Cd) 120 mg PO DAILY [facility] Last Admin: 08/25/17 09:24 Dose: 120 mg Gabapentin (Neurontin) 300 mg PO TID [facility] PRN Reason: Protocol Last Admin: 08/25/17 14:46 Dose: 300 mg Insulin Detemir (Levemir) 20 unit SC Q12 [facility] Insulin Human Regular (Humulin R Med) 0 units SC ACHS [facility] PRN Reason: Protocol Last Admin: 08/25/17 12:50 Dose: 3 units Levetiracetam (Keppra) 500 mg PO Q12 [facility] Last Admin: 08/25/17 09:24 Dose: 500 mg Metoprolol Tartrate (Lopressor) 50 mg PO BID [facility] Last Admin: 08/25/17 09:25 Dose: 50 mg Morphine Sulfate (Morphine) 1 mg IVP Q4H PRN PRN Reason: Pain, severe (8-10) Last Admin: 08/25/17 03:42 Dose: 1 mg Pantoprazole Sodium (Protonix Ec Tab) 40 mg PO 0600 [facility] Last Admin: 08/25/17 05:44 Dose: 40 mg Paroxetine HCl (Paxil) 10 mg PO HS [facility] Last Admin: 08/24/17 21:38 Dose: 10 mg Rivaroxaban (Xarelto) 15 mg PO DAILY [facility] PRN Reason: Protocol Last Admin: 08/25/17 09:24 Dose: 15 mg Thiamine HCl (Vitamin B1 Tab) 100 mg PO DAILY [facility] Last Admin: 08/25/17 09:24 Dose: 100 mg - Labs Labs: PT 13.0 SECONDS (9.4-12.5) H 08/21/17 20:36 INR 1.14 (0.93-1.08) H 08/21/17 20:36 APTT 30.1 Seconds (25.1-36.5) 08/21/17 20:36 Attending/Attestation - Attestation I have personally seen and examined this patient.: Yes I have fully participated in the care of the patient.: Yes I have reviewed all pertinent clinical information, including history, physical exam and plan: Yes Notes (Text): 08/25/17 15:11 67 year old male with past medical history of CAD s/p CABG, Afib, hepatitis C, diabetes, seizure, and recently diagnosed GI / hepatobiliary adenocarcinoma who presented with weakness and confusion. CT head was negative. [facility] was positive for opiates, benzodiazepines and marijuana. PT evaluation was appreciated who recommended home with services. However patient's family are requesting transfer to [facility]. He has poor social support at home. Case was discussed with telephonic nurse case manager regarding d/c planning; referred to psychologist social to get in touch with [facility]. Patient will need outpatient oncology follow up. Today he is complaining of chest pain. EKG and serial cardiac enzymes are ordered. Cardiology evaluation is requested. He is on metoprolol, cardizem, digoxin and xarelto for afib. Continue with levemir and insulin ss for diabetes. He is on xanan and paxil for anxiety. Heather Chou MD Hospitalist."
[2017-08-25] MEDS: Digoxin 125 mcg (0.125 mg) Tab PO SCH (14:46)
--- NOTE | 2017-08-25 15:15 | CARD ---
APPROVED REPORT EKG Measurement Heart [id number] <Conclusion> Atrial fibrillation PRWP Septal infarct, age undetermined ST & T wave abnormality c/w ischemia
[2017-08-25 17:05] VITALS: RESP 18
[2017-08-25] MEDS: Insulin Detemir 100 units/ml Vial (Levemir) SC SCH (21:50)
[2017-08-25 22:32] LABS: TROPONIN I 0.02 ng/mL
[2017-08-26 03:28] LABS: BASO # 0.01 K/mm3 (0.0-2.0); BASO % 0.1 % (0.0-3.0); EOS # 0.1 (0.0-0.7); EOS % 1.2 % (1.5-5.0); GRAN # 5.55 (1.4-6.5); GRAN % 81.4 % (50.0-68.0); HEMOGLOBIN 11.7 g/dL (14.0-18.0); LYMPH # 0.7 (1.2-3.4); LYMPH % 9.5 % (22.0-35.0); MEAN CELL VOLUME 86.3 fl (80.0-105.0); MEAN CORPUSCULAR HEMOGLOBIN 27.1 pg (25.0-35.0); MEAN CORPUSCULAR HGB CONC 31.4 g/dl (31.0-37.0); MEAN PLATELET VOLUME 10.6 fl (7.0-11.0); MONO # 0.5 (0.1-0.6); MONO % 7.8 % (1.0-6.0); RBC 4.32 10^6/uL (3.5-6.1); RED CELL DISTRIBUTION WIDTH 14.3 % (11.5-14.5); WHITE BLOOD COUNT 6.8 10^3/ul (4.5-11.0)
[2017-08-26 03:35] LABS: ALBUMIN 2.9 g/dL (3.0-4.8); ALT/SGPT 18 U/L (7-56); AST/SGOT 28 U/L (17-59); BLOOD UREA NITROGEN 19 mg/dL (7-21); CALCIUM 8.9 mg/dL (8.4-10.5); GFR AFRICAN-AMERICAN > 60; GFR NON-AFRICAN AMERICAN > 60
[2017-08-26 03:45] LABS: TROPONIN I 0.02 ng/mL
[2017-08-26] MEDS: Pantoprazole 40 mg EC Tab PO SCH (05:31)
--- NOTE | 2017-08-26 06:13 | CON ---
DATE: 08/25/2017 REASON FOR CONSULTATION: Followup chest pain, cardiac evaluation, history of coronary artery disease, history of CABG in the past, history of chronic atrial fibrillation, on Xarelto. BRIEF CLINICAL HISTORY: This is a 67-year-old male , with history of chronic atrial fibrillation, history of coronary artery disease, status post CABG 9 years ago in [facility], history of DVT, history of atrial fibrillation, history of hepatitis C, history of seizure disorder, diabetes, who was discharged on 08/21/2017, readmitted on 08/21/2017 because the daughter states he has very weak, curled up and unable to walk, so brought here back to the hospital. This morning, patient complained abdominal pain with some radiation to chest. Denies any chest pain, but cardiac consult was called for cardiac evaluation. Patient denies any episode of chest pain. PAST MEDICAL HISTORY: Significant for coronary artery disease, status post CABG 9 years ago in [facility], history of difficulty atrial fibrillation, on Xarelto, history of DVT, history of insulin-dependent diabetes, peripheral neuropathy, history of pancreatic CA with metastasis and abdominal pain. PAST SURGICAL HISTORY: Significant for coronary artery bypass surgery somewhere in 2008 possibly, as per daughter, in [facility]. FAMILY HISTORY: Coronary artery disease. SOCIAL HISTORY: History of former smoker, tobacco, quit over 20 years ago. Denies any history of alcohol abuse. Occasionally uses marijuana. ALLERGIES: TO ACETAMINOPHEN AND CODEINE. CURRENT MEDICATIONS: Patient is on aspirin, Xanax, metformin, Cardizem, Xarelto, Paxil, Lopressor, Keppra, insulin, gabapentin, digoxin, atorvastatin. PREVIOUS CARDIAC WORKUP: As follows. Patient had echocardiography done on 08/18/2017 that showed left ventricular size is normal, ejection fraction is 45%, mild aortic regurgitation, mild valvular aortic stenosis, moderate mitral regurgitation, mild tricuspid regurgitation, RV systolic pressure is 32. No pericardial effusion. IMPRESSION: Atypical chest pain, history of pancreatic cancer with metastasis, history of coronary artery disease, coronary artery bypass graft, admitted with generalized weakness, history of chronic atrial fibrillation, on Xarelto, history of atrial flutter, bradycardia. heart rate was 20. RECOMMENDATIONS: Follow up serial CPK, troponins and likely we will cut down the metoprolol because patient is getting bradycardia. Digoxin level in the morning and closely monitor. We will follow with you. Adjustment of medication hospital. We will follow with you. Thank you for providing us the opportunity in taking care of the patient, Hector Camacho. Lisa Kline MD
[2017-08-26] MEDS ORDERED: Potassium Chloride 20 mEq ER Tab PO ONE (06:56)
--- NOTE | 2017-08-26 08:10 | CP.PCM.PN ---
Subjective - Date & Time of Evaluation Date of Evaluation: 08/26/17 Time of Evaluation: 06:50 - Subjective Subjective: Lying in bed sleeping but easily awaken, denies chest pain,denies shortness of breath Reason for consult and follow up: cardiac evaluation, chest pain,coronary artery disease post CABG 2010, Atrial fibrillation on Xarelto Seen and examined by me and Dr. Kline Objective - Vital Signs/Intake and Output Vital Signs (last 24 hours): Temp Pulse Resp BP Pulse Ox 98.2 F 55 L 18 114/75 96 08/25/17 17:04 08/26/17 02:00 08/25/17 17:04 08/25/17 17:04 08/25/17 17:04 Intake and Output: 08/26/17 08/26/17 06:59 18:59 Intake Total 1260 Output Total 400 Balance 860 - Medications Medications: Current Medications Alprazolam (Xanax) 0.5 mg PO DAILY PRN; Protocol PRN Reason: Anxiety Last Admin: 08/25/17 22:07 Dose: 0.5 mg Aspirin (Ecotrin) 81 mg PO DAILY [facility] Atorvastatin Calcium (Lipitor) 40 mg PO DIN [facility] Last Admin: 08/25/17 17:39 Dose: 40 mg Digoxin (Digoxin) 0.125 mg PO 1400 [facility] Last Admin: 08/25/17 14:46 Dose: 0.125 mg Diltiazem HCl (Cardizem Cd) 120 mg PO DAILY [facility] Last Admin: 08/25/17 09:24 Dose: 120 mg Gabapentin (Neurontin) 300 mg PO TID [facility] PRN Reason: Protocol Last Admin: 08/25/17 17:39 Dose: 300 mg Insulin Detemir (Levemir) 20 unit SC Q12 [facility] Last Admin: 08/25/17 21:50 Dose: 20 unit Insulin Human Regular (Humulin R Med) 0 units SC ACHS [facility] PRN Reason: Protocol Last Admin: 08/25/17 23:52 Dose: Not Given Levetiracetam (Keppra) 500 mg PO Q12 [facility] Last Admin: 08/25/17 21:51 Dose: 500 mg Metoprolol Tartrate (Lopressor) 25 mg PO BID [facility] Morphine Sulfate (Morphine) 1 mg IVP Q4H PRN PRN Reason: Pain, severe (8-10) Last Admin: 08/25/17 16:10 Dose: 1 mg Pantoprazole Sodium (Protonix Ec Tab) 40 mg PO 0600 [facility] Last Admin: 08/26/17 05:31 Dose: 40 mg Paroxetine HCl (Paxil) 10 mg PO HS [facility] Last Admin: 08/25/17 21:51 Dose: 10 mg Rivaroxaban (Xarelto) 15 mg PO DAILY [facility] PRN Reason: Protocol Last Admin: 08/25/17 09:24 Dose: 15 mg Thiamine HCl (Vitamin B1 Tab) 100 mg PO DAILY [facility] Last Admin: 08/25/17 09:24 Dose: 100 mg - Labs Labs: 08/26/17 03:05 08/26/17 03:05 PT 13.0 SECONDS (9.4-12.5) H 08/21/17 20:36 INR 1.14 (0.93-1.08) H 08/21/17 20:36 APTT 30.1 Seconds (25.1-36.5) 08/21/17 20:36 - Constitutional Appears: No Acute Distress - Eye Exam Pupil Exam: NORMAL ACCOMODATION - ENT Exam ENT Exam: Mucous Membranes Moist - Respiratory Exam Respiratory Exam: Decreased Breath Sounds, NORMAL BREATHING PATTERN - Cardiovascular Exam Cardiovascular Exam: +S1, +S2 - GI/Abdominal Exam GI & Abdominal Exam: Soft, Normal Bowel Sounds - Extremities Exam Extremities Exam: Normal Capillary Refill - Neurological Exam Neurological Exam: Alert, Awake - Psychiatric Exam Psychiatric exam: Normal Affect, Normal Mood - Skin Skin Exam: Intact, Normal Color, Warm Assessment and Plan - Assessment and Plan (Free Text) Assessment: A 67 year old male who came in to the ER due to altered mental status. Patient was [place] [facility] Prior admission was due to fall found by police and brought [place] [facility] He was diagnosed with generalized weakness secondary to poor PO intake likely secondary to GI/hepatobiliary adenocarcinoma. History of CAD s/p CABG 2010, visual problems, atrial fibrillation (on Xarelto), DVTs, IDDM type 2, peripheral neuropathy, pancreatic cancer with metastasis, former smoker tobacco, quit over 2 decades ago, denies etoh, occasional marijuana use, Lives alone, walks with a cane, [facility] Plan: Denies chest pain or shortness of breath Telemetry afib 55-70's/min Lopressor decreased to 25 mg BID On ASA 81 mg daily, Lipitor 40 mg daily, Cardixem CD 120 mg daily, Digoxin 0.125 mg daily,Lopressor 25 mg BID, Xarelto 15 mg daily Continue current medications Continue current treatment [facility] Fall precaution Will follow up Plan and treatment discussed with Dr. Eliud do
[2017-08-26] MEDS: Insulin Reg-MEDIUM-Coverage SC SCH ×5 (08:15→21:59)
[2017-08-26] MEDS: diltiaZEM 120 mg/24 Hours CD Cap PO SCH (09:50)
[2017-08-26] MEDS: Insulin Detemir 100 units/ml Vial (Levemir) SC SCH (09:51)
[2017-08-26] MEDS: Digoxin 125 mcg (0.125 mg) Tab PO SCH (14:13)
[2017-08-26] MEDS ORDERED: Iohexol 350 MG/100 ML VIAL ONE (15:28)
--- NOTE | 2017-08-26 15:28 | CP.PCM.PN ---
"<Sorin Lr - Last Filed: 08/26/17 15:15> Subjective - Date & Time of Evaluation Date of Evaluation: 08/26/17 Time of Evaluation: 14:15 - Subjective Subjective: PGY1 Medicine Note for Dr. Chou Patient seen and examined at bedside this morning. No acute events overnight. Social work has been attempting to set up transfer patient to [facility] as this is where he follows up with for his medical care of his pancreatic CA. He had no complaints this morning other than stating he did not feel well overall. This afternoon he was refusing to eat his lunch because of abdominal pain. The abdominal pain is located just superior to his umbilicus. He states he is nauseous but did not vomit. Patient states he still would like to leave and go to the [facility] in [place], [place]. Patient is requesting that his friend be made his POA. Denies fevers, chills, nausea, vomiting, diarrhea, chest pain, palpitations, shortness of breath, abdominal pain, headaches, lightheadedness or dizziness. Objective - Vital Signs/Intake and Output Vital Signs (last 24 hours): Temp Pulse Resp BP Pulse Ox 98.1 F 123 H 18 135/84 95 08/26/17 08:08 08/26/17 10:00 08/26/17 08:08 08/26/17 09:50 08/26/17 08:08 Intake and Output: 08/26/17 08/26/17 06:59 18:59 Intake Total 1260 Output Total 400 Balance 860 - Medications Medications: Current Medications Alprazolam (Xanax) 0.5 mg PO DAILY PRN; Protocol PRN Reason: Anxiety Last Admin: 08/25/17 22:07 Dose: 0.5 mg Aspirin (Ecotrin) 81 mg PO DAILY [facility] Last Admin: 08/26/17 09:50 Dose: 81 mg Atorvastatin Calcium (Lipitor) 40 mg PO DIN [facility] Last Admin: 08/25/17 17:39 Dose: 40 mg Digoxin (Digoxin) 0.125 mg PO 1400 [facility] Last Admin: 08/26/17 14:13 Dose: 0.125 mg Diltiazem HCl (Cardizem Cd) 120 mg PO DAILY [facility] Last Admin: 08/26/17 09:50 Dose: 120 mg Gabapentin (Neurontin) 300 mg PO TID [facility] PRN Reason: Protocol Last Admin: 08/26/17 14:13 Dose: 300 mg Insulin Detemir (Levemir) 20 unit SC Q12 [facility] Last Admin: 08/26/17 09:51 Dose: 20 unit Insulin Human Regular (Humulin R Med) 0 units SC ACHS [facility] PRN Reason: Protocol Last Admin: 08/26/17 12:12 Dose: Not Given Levetiracetam (Keppra) 500 mg PO Q12 [facility] Last Admin: 08/26/17 09:50 Dose: 500 mg Metoprolol Tartrate (Lopressor) 25 mg PO BID [facility] Last Admin: 08/26/17 09:50 Dose: 25 mg Morphine Sulfate (Morphine) 1 mg IVP Q4H PRN PRN Reason: Pain, severe (8-10) Last Admin: 08/25/17 16:10 Dose: 1 mg Pantoprazole Sodium (Protonix Ec Tab) 40 mg PO 0600 [facility] Last Admin: 08/26/17 05:31 Dose: 40 mg Paroxetine HCl (Paxil) 10 mg PO HS [facility] Last Admin: 08/25/17 21:51 Dose: 10 mg Rivaroxaban (Xarelto) 15 mg PO DAILY [facility] PRN Reason: Protocol Last Admin: 08/26/17 09:50 Dose: 15 mg Thiamine HCl (Vitamin B1 Tab) 100 mg PO DAILY [facility] Last Admin: 08/26/17 09:51 Dose: 100 mg - Labs Labs: 08/26/17 03:05 08/26/17 03:05 PT 13.0 SECONDS (9.4-12.5) H 08/21/17 20:36 INR 1.14 (0.93-1.08) H 08/21/17 20:36 APTT 30.1 Seconds (25.1-36.5) 08/21/17 20:36 - Constitutional Appears: Chronically Ill, Other (appears uncomfortable) - Head Exam Head Exam: ATRAUMATIC, NORMOCEPHALIC - Eye Exam Eye Exam: EOMI, Normal appearance, PERRL - ENT Exam ENT Exam: Mucous Membranes Moist - Neck Exam Neck Exam: absent: Lymphadenopathy - Respiratory Exam Respiratory Exam: Clear to Ausculation Bilateral, NORMAL BREATHING PATTERN. absent: Accessory Muscle Use, Rales, Rhonchi, Wheezes, Respiratory Distress - Cardiovascular Exam Cardiovascular Exam: REGULAR RHYTHM, +S1, +S2. absent: JVD, Murmur - GI/Abdominal Exam GI & Abdominal Exam: Distended, Soft, Tenderness (superior to umbilicus), Hernia (superior to umbilicus, non-reducible ), Normal Bowel Sounds - Rectal Exam Rectal Exam: NORMAL INSPECTION - Exam Exam: Circumcision, NORMAL INSPECTION External exam: NORMAL EXTERNAL EXAM Speculum exam: NORMAL SPECULUM EXAM Bimanual exam: NORMAL BIMANUAL EXAM - Extremities Exam Extremities Exam: absent: Calf Tenderness, Joint Swelling, Pedal Edema, Tenderness - Neurological Exam Neurological Exam: Alert, Awake, CN II-XII Intact, Oriented x3 - Skin Skin Exam: Dry, Warm Assessment and Plan - Assessment and Plan (Free Text) Assessment: Patient is a 67 year old male with PMHx of Afib, Hep C, seizure, DVT, Diabetes who was readmitted for evaluation and treatment of generalized weakness. Plan: Generalized Weakness - likely secondary to poor PO intake - head CT (08/15)- Stable unenhanced head CT with no suspicious interval findings. Age-related neuro degenerative changes, chronic lobar infarction left frontal lobe - CXR (08/15) - No interval acute cardiopulmonary disease appreciated - CXR (Adm) - Right lower lobe consolidation vs effusion. New from previous admission. Afebrile, No White Count. Elevated Lactate - high risk fall precautions - Physical Therapy Consulted - Blood/Urine Cultures - ABG - ProCal 0.60 Adenocarcinoma of the Upper GI/Pancreatobiliary Origin; Abdominal Pain: - CT of abdomen/pelvis from 08/04/17: 1. Necrotic mass in the head of the pancreas with a diffuse and infiltrative component to adjacent lymph node chains extending to the katelyn hepatis. 2. Hepatic metastatic disease. 3. Intra-abdominal and pelvic ascites presumed to be malignant. - Previous admission GI consulted- if pt is proceeding with possible treatment in the future will eventually need outp colonoscopy and EGD IR consulted for biopsy- biopsy performed on 08/06/2017- pathology report indicates adenocarcinoma of the upper GI/pancreatobiliary origin heme/onc- Dr. Crowe- prognosis is grave, life expectancy is less than 3 months, single agent chemotherapy vs palliative care - pain control with morphine - portcath placement on 08/20 - Patient is stating that he is experiencing new abdominal pain located superior to his umbilicus. A hard non-reducible mass was felt on exam. * Ordered new Abdominal CT w/ IV * f/u results * a mass was seen near umbilicus on 08/04/17 but was not mentioned. will repeat abdominal CT to compare scan with previous to seen if ascites has worsened or if patient has a new hernia. Depending on results, will plan for a therapeutic paracenthesis or surgical consult as needed. Atrial Flutter; Hx of Atrial fibrillation - EKG showed atrial fibrillation with RVR, rate 105, ST and T wave abnormality - Cardizem 120mg daily | lopressor 50mg BID | Digoxin -.0125mg 1400 Hx of IDDM2 - ACHS - levemir 15 units bid (Held) - ISS Regular Hx of Seizure disorders - Continue with keppra 500 mg bid - Seizure and fall precaution Hx of CAD s/p CABG - Patient had an episode of left sided chest pain around 130p today noting the pain in his chest as a pressure. EKG ordered, showing new inverted and depressed T waves in leads V5-V6. Remainder of EKG is unchanged. - Trop neg x 3 - continue with Lopressor - continue with Lipitor Hx of Peripheral neuropathy -continue with gabapentin Hx of Anxiety - continue xanax 0.5 mg bid prn Gait instability - high risk fall precautions - PT eval Per PT note, Pt is poorly compliant with therapy, and it took alot of efford just to get him out of the bed. Able to walk 10 ft on his own, before he requested to go back to the bed, saying he's tired. Prophylaxis - DVT prophylaxis- Xarelto - GI prophylaxis - on protonix Dispo: Social work has been attempting to set up transfer patient to [facility] in [place], [place], as this is where he follows up with for his medical care of his pancreatic CA but has not been able to establish transfer. Will re-eval abdominal pain with abdominal CT and plan for paracenthesis or surgical depending on findings. If abdominal pain resolves, patient may be discharged home with follow up at [place] [facility] for further treatment of abdominal pain. Patient is requesting his friend be made [place] is working with patient to make this happen. Case discussed with Dr. José Antonio Lr PGY1 <Heather Chou - Last Filed: 08/26/17 16:13> Objective - Vital Signs/Intake and Output Vital Signs (last 24 hours): Temp Pulse Resp BP Pulse Ox 98.1 F 123 H 18 135/84 95 08/26/17 08:08 08/26/17 10:00 08/26/17 08:08 08/26/17 09:50 08/26/17 08:08 Intake and Output: 08/26/17 08/26/17 06:59 18:59 Intake Total 1260 Output Total 400 Balance 860 - Medications Medications: Current Medications Alprazolam (Xanax) 0.5 mg PO DAILY PRN; Protocol PRN Reason: Anxiety Last Admin: 08/25/17 22:07 Dose: 0.5 mg Aspirin (Ecotrin) 81 mg PO DAILY [facility] Last Admin: 08/26/17 09:50 Dose: 81 mg Atorvastatin Calcium (Lipitor) 40 mg PO DIN [facility] Last Admin: 08/25/17 17:39 Dose: 40 mg Digoxin (Digoxin) 0.125 mg PO 1400 [facility] Last Admin: 08/26/17 14:13 Dose: 0.125 mg Diltiazem HCl (Cardizem Cd) 120 mg PO DAILY [facility] Last Admin: 08/26/17 09:50 Dose: 120 mg Gabapentin (Neurontin) 300 mg PO TID [facility] PRN Reason: Protocol Last Admin: 08/26/17 14:13 Dose: 300 mg Insulin Detemir (Levemir) 20 unit SC Q12 [facility] Last Admin: 08/26/17 09:51 Dose: 20 unit Insulin Human Regular (Humulin R Med) 0 units SC ACHS [facility] PRN Reason: Protocol Last Admin: 08/26/17 12:12 Dose: Not Given Levetiracetam (Keppra) 500 mg PO Q12 [facility] Last Admin: 08/26/17 09:50 Dose: 500 mg Metoprolol Tartrate (Lopressor) 25 mg PO BID [facility] Last Admin: 08/26/17 09:50 Dose: 25 mg Morphine Sulfate (Morphine) 1 mg IVP Q4H PRN PRN Reason: Pain, severe (8-10) Last Admin: 08/25/17 16:10 Dose: 1 mg Pantoprazole Sodium (Protonix Ec Tab) 40 mg PO 0600 [facility] Last Admin: 08/26/17 05:31 Dose: 40 mg Paroxetine HCl (Paxil) 10 mg PO HS [facility] Last Admin: 08/25/17 21:51 Dose: 10 mg Rivaroxaban (Xarelto) 15 mg PO DAILY [facility] PRN Reason: Protocol Last Admin: 08/26/17 09:50 Dose: 15 mg Thiamine HCl (Vitamin B1 Tab) 100 mg PO DAILY [facility] Last Admin: 08/26/17 09:51 Dose: 100 mg - Labs Labs: 08/26/17 03:05 08/26/17 03:05 PT 13.0 SECONDS (9.4-12.5) H 08/21/17 20:36 INR 1.14 (0.93-1.08) H 08/21/17 20:36 APTT 30.1 Seconds (25.1-36.5) 08/21/17 20:36 Attending/Attestation - Attestation I have personally seen and examined this patient.: Yes I have fully participated in the care of the patient.: Yes I have reviewed all pertinent clinical information, including history, physical exam and plan: Yes Notes (Text): 08/26/17 16:08 67 year old male with past medical history of CAD s/p CABG, Afib, hepatitis C, diabetes, seizure, and recently diagnosed GI / hepatobiliary adenocarcinoma who presented with weakness and confusion. CT head was negative. UTox was positive for opiates, benzodiazepines and marijuana. PT evaluation was appreciated who recommended home with services. However patient's family are requesting transfer to [place]. He has poor social support at home. Case was discussed with briefcase sewer regarding d/c planning. Patient will need outpatient oncology follow up. Yesterday he complained of chest pain which is resolved. Cardiology evaluation was appreciated. Serial cardiac enzymes were negative and ACS was ruled out. He is on metoprolol, cardizem, digoxin and xarelto for afib. Today he is complaining of abdominal pain and distention and poor appetite. Repeat CT abdomen/pelvis is ordered to evaluate for ascites or hernia. Continue with insulin ss for diabetes. Levemir on hold if he is not eating. He is on xanax and paxil for anxiety. Heather Chou MD Hospitalist."
--- NOTE | 2017-08-26 16:23 | CT ---
PROCEDURE: CT Abdomen and Pelvis with contrast HISTORY: possible strangulated umbilical hernia COMPARISON: 08/04/2017 CT abdomen and pelvis. TECHNIQUE: Contrast dose: 100 cc Omnipaque 350 Radiation dose: Total exam DLP = 1373.49 mGy-cm. This CT exam was performed using one or more of the following dose reduction techniques: Automated exposure control, adjustment of the mA and/or kV according to patient size, and/or use of iterative reconstruction technique. FINDINGS: LOWER THORAX: New large right pleural effusion, associated compressive atelectasis right lower lobe. New trace left pleural effusion. LIVER: Stable tumor burden and intrahepatic bile duct dilatation. GALLBLADDER AND BILE DUCTS: Unremarkable. PANCREAS: Stable pancreatic head mass. SPLEEN: Unremarkable. ADRENALS: Unremarkable. No mass. KIDNEYS AND URETERS: Unremarkable. No hydronephrosis. No solid mass. VASCULATURE: Unremarkable. No aortic aneurysm. BOWEL: Small periumbilical hernia unchanged compared to the prior study without evidence of proximal dilatation. APPENDIX: Normal appendix. PERITONEUM: Progressive intra-abdominal and pelvic ascites LYMPH NODES: Stable right upper quadrant and retroperitoneal lymphadenopathy. BLADDER: Unremarkable. REPRODUCTIVE: Unremarkable. BONES: No acute fracture. OTHER FINDINGS: None. IMPRESSION: 1. Solitary loop of nondilated small bowel periumbilical hernia. No evidence of proximal dilatation. 2. New large right pleural effusion. 3. Increase in volume of abdominal and pelvic ascites. 4. Stable tumor burden in the abdomen and retroperitoneum.
[2017-08-26 16:53] VITALS: BP 131/100; TEMP 97.6; O2SAT 98
[2017-08-27] MEDS: Pantoprazole 40 mg EC Tab PO SCH (06:33)
[2017-08-27 06:43] LABS: BASO # 0.01 K/mm3 (0.0-2.0); BASO % 0.1 % (0.0-3.0); EOS % 0.4 % (1.5-5.0); GRAN # 6.77 (1.4-6.5); GRAN % 85.8 % (50.0-68.0); LYMPH # 0.6 (1.2-3.4); LYMPH % 7.2 % (22.0-35.0); MEAN CORPUSCULAR HEMOGLOBIN 26.5 pg (25.0-35.0); MEAN CORPUSCULAR HGB CONC 30.8 g/dl (31.0-37.0); MEAN PLATELET VOLUME 10.2 fl (7.0-11.0); MONO # 0.5 (0.1-0.6); MONO % 6.5 % (1.0-6.0); RBC 4.15 10^6/uL (3.5-6.1); RED CELL DISTRIBUTION WIDTH 14.4 % (11.5-14.5); WHITE BLOOD COUNT 7.9 10^3/ul (4.5-11.0)
[2017-08-27 07:29] LABS: ALBUMIN 2.8 g/dL (3.0-4.8); ALT/SGPT 25 U/L (7-56); AST/SGOT 28 U/L (17-59); BLOOD UREA NITROGEN 17 mg/dL (7-21); CALCIUM 8.7 mg/dL (8.4-10.5); GFR AFRICAN-AMERICAN > 60; GFR NON-AFRICAN AMERICAN > 60
[2017-08-27] MEDS: Insulin Reg-MEDIUM-Coverage SC SCH ×2 (07:54→12:04)
--- NOTE | 2017-08-27 07:59 | CP.PCM.PN ---
Subjective - Date & Time of Evaluation Date of Evaluation: 08/27/17 Time of Evaluation: 06:55 - Subjective Subjective: Awake, Lying in bed,denies chest pain,denies ,shortness of breath Reason for consult and follow up: cardiac evaluation, chest pain,coronary artery disease post CABG 2010, Atrial fibrillation on Xarelto Seen and examined by me and Dr. Kline Objective - Vital Signs/Intake and Output Vital Signs (last 24 hours): Temp Pulse Resp BP Pulse Ox 97.6 F 83 18 131/100 H 98 08/26/17 16:52 08/27/17 06:00 08/26/17 16:52 08/26/17 17:39 08/26/17 16:52 Intake and Output: 08/27/17 08/27/17 06:59 18:59 Intake Total 1260 Output Total 900 Balance 360 - Medications Medications: Current Medications Alprazolam (Xanax) 0.5 mg PO DAILY PRN; Protocol PRN Reason: Anxiety Last Admin: 08/25/17 22:07 Dose: 0.5 mg Aspirin (Ecotrin) 81 mg PO DAILY [facility] Last Admin: 08/26/17 09:50 Dose: 81 mg Atorvastatin Calcium (Lipitor) 40 mg PO DIN [facility] Last Admin: 08/26/17 17:39 Dose: 40 mg Digoxin (Digoxin) 0.125 mg PO 1400 [facility] Last Admin: 08/26/17 14:13 Dose: 0.125 mg Diltiazem HCl (Cardizem Cd) 120 mg PO DAILY [facility] Last Admin: 08/26/17 09:50 Dose: 120 mg Gabapentin (Neurontin) 300 mg PO TID [facility] PRN Reason: Protocol Last Admin: 08/26/17 17:39 Dose: 300 mg Insulin Detemir (Levemir) 20 unit SC Q12 [facility] Last Admin: 08/26/17 09:51 Dose: 20 unit Insulin Human Regular (Humulin R Med) 0 units SC ACHS [facility] PRN Reason: Protocol Last Admin: 08/27/17 07:54 Dose: Not Given Levetiracetam (Keppra) 500 mg PO Q12 [facility] Last Admin: 08/26/17 21:59 Dose: 500 mg Metoprolol Tartrate (Lopressor) 25 mg PO BID [facility] Last Admin: 08/26/17 17:39 Dose: 25 mg Morphine Sulfate (Morphine) 1 mg IVP Q4H PRN PRN Reason: Pain, severe (8-10) Last Admin: 08/25/17 16:10 Dose: 1 mg Pantoprazole Sodium (Protonix Ec Tab) 40 mg PO 0600 [facility] Last Admin: 08/27/17 06:33 Dose: 40 mg Paroxetine HCl (Paxil) 10 mg PO HS [facility] Last Admin: 08/26/17 21:59 Dose: 10 mg Rivaroxaban (Xarelto) 15 mg PO DAILY [facility] PRN Reason: Protocol Last Admin: 08/26/17 09:50 Dose: 15 mg Thiamine HCl (Vitamin B1 Tab) 100 mg PO DAILY [facility] Last Admin: 08/26/17 09:51 Dose: 100 mg - Labs Labs: 08/27/17 06:30 08/27/17 06:30 PT 13.0 SECONDS (9.4-12.5) H 08/21/17 20:36 INR 1.14 (0.93-1.08) H 08/21/17 20:36 APTT 30.1 Seconds (25.1-36.5) 08/21/17 20:36 - Constitutional Appears: No Acute Distress - Head Exam Head Exam: NORMOCEPHALIC - ENT Exam ENT Exam: Mucous Membranes Moist - Respiratory Exam Respiratory Exam: Decreased Breath Sounds, NORMAL BREATHING PATTERN Additional comments: Nasal cannula 2-3 l/min - Cardiovascular Exam Additional comments: right subclavian katelyn cath - GI/Abdominal Exam GI & Abdominal Exam: Distended, Soft, Hypoactive Bowel Sounds Additional comments: vague pain,nauseas - Extremities Exam Extremities Exam: Normal Capillary Refill - Neurological Exam Neurological Exam: Alert, Awake, Oriented x3 - Psychiatric Exam Psychiatric exam: Normal Affect, Normal Mood - Skin Skin Exam: Intact, Normal Color, Warm Assessment and Plan - Assessment and Plan (Free Text) Assessment: A 67 year old male who came in to the ER due to altered mental status. [place] [facility] [place] was due to fall found by police and [place] [facility] [place] He was diagnosed with generalized weakness secondary to poor PO intake likely secondary to GI/hepatobiliary adenocarcinoma. History of CAD s/p CABG 2010, visual problems, atrial fibrillation (on Xarelto), DVTs, IDDM type 2, peripheral neuropathy, pancreatic cancer with metastasis, former smoker tobacco, quit over 2 decades ago, denies etoh, occasional marijuana use, Lives alone, walks with a cane, [facility] Plan: GI work up in progress GI on consult Refuse to eat due to nausea Stable cardiac status On ASA 81 mg daily, Lipitor 40 mg daily, Cardixem CD 120 mg daily, Digoxin 0.125 mg daily,Lopressor 25 mg BID, Xarelto 15 mg daily Continue current medications Continue current treatment Wanted to be transferred to [place] for medical follow up Social service/case management working on transfer to [place] Fall precaution Will follow up Plan and treatment discussed with Dr. Kline
[2017-08-27] MEDS: diltiaZEM 120 mg/24 Hours CD Cap PO SCH (09:44)
[2017-08-27] MEDS ORDERED: Potassium Chloride 20 mEq ER Tab PO ONE (09:49)
--- NOTE | 2017-08-27 11:02 | CP.PCM.PN ---
"Subjective - Date & Time of Evaluation Date of Evaluation: 08/27/17 Time of Evaluation: 07:02 - Subjective Subjective: PGY1 Medicine Note for Dr. Chou Patient seen and examined at bedside this morning. No acute events overnight night. Patient complained abdominal pain yesterday afternoon but states that it has resolved. He is a little upset this morning because he was unable to sleep due to his roommate making noises throughout the night. Other than being tired from not sleeping, he states he has no complaints at this time. Denies fevers, chills, nausea, vomiting, chest pain, shortness of breath, palpitations, abdominal pain, headaches, numbness, tingling, lightheadedness or dizziness. Objective - Vital Signs/Intake and Output Vital Signs (last 24 hours): Temp Pulse Resp BP Pulse Ox 97.6 F 83 18 131/100 H 98 08/26/17 16:52 08/27/17 06:00 08/26/17 16:52 08/26/17 17:39 08/26/17 16:52 Intake and Output: 08/27/17 08/27/17 06:59 18:59 Intake Total 1260 Output Total 900 Balance 360 - Medications Medications: Current Medications Alprazolam (Xanax) 0.5 mg PO DAILY PRN; Protocol PRN Reason: Anxiety Last Admin: 08/25/17 22:07 Dose: 0.5 mg Aspirin (Ecotrin) 81 mg PO DAILY [facility] Last Admin: 08/27/17 09:44 Dose: 81 mg Atorvastatin Calcium (Lipitor) 40 mg PO DIN [facility] Last Admin: 08/26/17 17:39 Dose: 40 mg Digoxin (Digoxin) 0.125 mg PO 1400 [facility] Last Admin: 08/26/17 14:13 Dose: 0.125 mg Diltiazem HCl (Cardizem Cd) 120 mg PO DAILY [facility] Last Admin: 08/27/17 09:44 Dose: 120 mg Gabapentin (Neurontin) 300 mg PO TID [facility] PRN Reason: Protocol Last Admin: 08/27/17 09:44 Dose: 300 mg Insulin Detemir (Levemir) 20 unit SC Q12 [facility] Last Admin: 08/26/17 09:51 Dose: 20 unit Insulin Human Regular (Humulin R Med) 0 units SC ACHS [facility] PRN Reason: Protocol Last Admin: 08/27/17 07:54 Dose: Not Given Levetiracetam (Keppra) 500 mg PO Q12 [facility] Last Admin: 08/27/17 09:44 Dose: 500 mg Metoprolol Tartrate (Lopressor) 25 mg PO BID [facility] Last Admin: 08/27/17 09:44 Dose: 25 mg Morphine Sulfate (Morphine) 1 mg IVP Q4H PRN PRN Reason: Pain, severe (8-10) Last Admin: 08/25/17 16:10 Dose: 1 mg Pantoprazole Sodium (Protonix Ec Tab) 40 mg PO 0600 [facility] Last Admin: 08/27/17 06:33 Dose: 40 mg Paroxetine HCl (Paxil) 10 mg PO HS [facility] Last Admin: 08/26/17 21:59 Dose: 10 mg Rivaroxaban (Xarelto) 15 mg PO DAILY [facility] PRN Reason: Protocol Last Admin: 08/26/17 09:50 Dose: 15 mg Thiamine HCl (Vitamin B1 Tab) 100 mg PO DAILY [facility] Last Admin: 08/27/17 09:44 Dose: 100 mg - Labs Labs: 08/27/17 06:30 08/27/17 06:30 PT 13.0 SECONDS (9.4-12.5) H 08/21/17 20:36 INR 1.14 (0.93-1.08) H 08/21/17 20:36 APTT 30.1 Seconds (25.1-36.5) 08/21/17 20:36 - Constitutional Appears: No Acute Distress, Chronically Ill - Head Exam Head Exam: ATRAUMATIC, NORMOCEPHALIC - Eye Exam Eye Exam: EOMI, Normal appearance, PERRL - ENT Exam ENT Exam: Mucous Membranes Moist - Neck Exam Neck Exam: absent: Lymphadenopathy - Respiratory Exam Respiratory Exam: Clear to Ausculation Bilateral, NORMAL BREATHING PATTERN. absent: Accessory Muscle Use, Rales, Rhonchi, Wheezes, Respiratory Distress Additional comments: patient refused to sit up or roll over to listen to back of lungs. - Cardiovascular Exam Cardiovascular Exam: Irregular Rhythm (afib on tele), +S1, +S2 - GI/Abdominal Exam GI & Abdominal Exam: Soft, Hernia (umbilical, non-reducible), Normal Bowel Sounds. absent: Distended, Firm, Guarding, Rigid, Tenderness - Extremities Exam Extremities Exam: Pedal Edema (1+ pitting). absent: Calf Tenderness - Neurological Exam Neurological Exam: Alert, Awake, Oriented x3 - Psychiatric Exam Psychiatric exam: Agitated (mad he was unable to sleep last night due to roommate) - Skin Skin Exam: Dry, Warm Assessment and Plan - Assessment and Plan (Free Text) Assessment: Patient is a 67 year old male with PMHx of Afib, Hep C, seizure, DVT, Diabetes who was readmitted for evaluation and treatment of generalized weakness. Plan: Generalized Weakness - likely secondary to poor PO intake - head CT (08/15)- Stable unenhanced head CT with no suspicious interval findings. Age-related neuro degenerative changes, chronic lobar infarction left frontal lobe - CXR (08/15) - No interval acute cardiopulmonary disease appreciated - CXR (Adm) - Right lower lobe consolidation vs effusion. New from previous admission. Afebrile, No White Count. Elevated Lactate - high risk fall precautions - Physical Therapy Consulted - Blood/Urine Cultures - ABG - ProCal 0.60 Adenocarcinoma of the Upper GI/Pancreatobiliary Origin; Abdominal Pain: - CT of abdomen/pelvis from 08/04/17: 1. Necrotic mass in the head of the pancreas with a diffuse and infiltrative component to adjacent lymph node chains extending to the katelyn hepatis. 2. Hepatic metastatic disease. 3. Intra-abdominal and pelvic ascites presumed to be malignant. - Repeat Abdominal CT w/ IV on 08/27/17: * 1. Solitary loop of nondilated small bowel periumbilical hernia. No evidence of proximal dilatation. 2. New large right pleural effusion. 3. Increase in volume of abdominal and pelvic ascites. 4. Stable tumor burden in the abdomen and retroperitoneum. * Consult IR, Dr. Ruddy Webb, for eval of Right sided pleural effusion and possible paracentesis. - Previous admission GI consulted- if pt is proceeding with possible treatment in the future will eventually need outp colonoscopy and EGD IR consulted for biopsy- biopsy performed on 08/06/2017- pathology report indicates adenocarcinoma of the upper GI/pancreatobiliary origin heme/onc- Dr. Crowe- prognosis is grave, life expectancy is less than 3 months, single agent chemotherapy vs palliative care - pain control with morphine - portcath placement on 08/20 Atrial Flutter; Hx of Atrial fibrillation - EKG showed atrial fibrillation with RVR, rate 105, ST and T wave abnormality - Cardizem 120mg daily | lopressor 50mg BID | Digoxin -.0125mg 1400 Hx of IDDM2 - ACHS - levemir 15 units bid (Held) - can restart once patient start to consistently eat agin - ISS Regular Hx of Seizure disorders - Continue with keppra 500 mg bid - Seizure and fall precaution Hx of CAD s/p CABG - Patient had an episode of left sided chest pain around 130p today noting the pain in his chest as a pressure. EKG ordered, showing new inverted and depressed T waves in leads V5-V6. Remainder of EKG is unchanged. - Trop neg x 3 - continue with Lopressor - continue with Lipitor Hx of Peripheral neuropathy -continue with gabapentin Hx of Anxiety - continue xanax 0.5 mg bid prn Gait instability - high risk fall precautions - PT eval Per PT note, Pt is poorly compliant with therapy, and it took alot of efford just to get him out of the bed. Able to walk 10 ft on his own, before he requested to go back to the bed, saying he's tired. Prophylaxis - DVT prophylaxis- Xarelto - GI prophylaxis - on protonix Dispo: Social work has been attempting to set up transfer patient to [facility] in [place], [place], as this is where he follows up with for his medical care of his pancreatic CA but has not been able to establish transfer. Case discussed with Dr. José Antonio Rowell Be PGY1"
--- NOTE | 2017-08-27 13:00 | CARD ---
APPROVED REPORT EKG Measurement Heart [id number] <Conclusion> Atrial fibrillation with premature ventricular or aberrantly conducted complexes STTW changes c/w ischemia
[2017-08-27] MEDS: Digoxin 125 mcg (0.125 mg) Tab PO SCH (13:29)
[2017-08-27 13:32] VITALS: PULSE 82
[2017-08-27 14:07] VITALS: PULSE 81
--- NOTE | 2017-08-27 14:41 | CP.PCM.CON ---
History of Present Illness - History of Present Illness History of Present Illness: Palliative consult requested by Dr Lita Chou Reason: Goals of care and advanced care planning 67 year old male with history of pancreatic cancer with liver metastasis, ascites who presented with weakness.Chest x ray showed RLL infiltrate with effusion. CT of head showed no acute findings. PMHx: pancreatic cancer, CAD s/p, atrial flutter, GERD, Hep C, HTN, , HLD, gait instability Social History: Former smoker, occasional alcohol and marijuana use. Single, lives alone. Family History: Non contributory. Advance Care Planning: The patient does not have an Advanced Directive Review of Systems : As per HPI, otherwise negative review of systems Past Patient History - Infectious Disease Hx of Infectious Diseases: None - Tetanus Immunizations Tetanus Immunization: Unknown - Past Medical History & Family History Past Medical History?: Yes - Past Social History Smoking Status: Former Smoker - CARDIAC Hx Cardiac Disorders: Yes Hx Congestive Heart Failure: Yes Hx Hypertension: Yes - PULMONARY Hx Chronic Obstructive Pulmonary Disease (COPD): No - NEUROLOGICAL HX Cerebrovascular Accident: No - HEENT Hx HEENT Problems: Yes Hx Blind: Yes (left eye legally blind) Hx Cataracts: No Hx Deafness: No Hx Difficulty Chewing: Yes (needs dentures. no upper teeth) Hx Epistaxis: No Hx Glaucoma: No Hx Macular Degeneration: No - RENAL Hx Renal Failure: No - ENDOCRINE/METABOLIC Hx Diabetes Mellitus Type 2: Yes - HEMATOLOGICAL/ONCOLOGICAL Hx Blood Disorders: Yes Hx AIDS: No Hx Anemia: No Hx Cancer: No Hx Chemotherapy: No Hx Cirrhosis: No Hx Hemophilia: No Hx Hepatitis A: No Hx Hepatitis B: No Hx Hepatitis C: Yes Hx Metastesis: No Hx Shingles: No Hx Sickle Cell Disease: No Hx Unexplained Bleeding: No - INTEGUMENTARY Hx Dermatological Problems: No Hx Basil Cell: No Hx Eczema: No Hx Melanoma: No Hx Psoriasis: No Hx Squamous Cell: No - MUSCULOSKELETAL/RHEUMATOLOGICAL Hx Musculoskeletal Disorders: Yes Hx Falls: Yes Hx Unsteady Gait: Yes - GASTROINTESTINAL Hx Gastroesophageal Reflux: Yes - GENITOURINARY/GYNECOLOGICAL Hx Genitourinary Disorders: No Hx Hematuria: No Hx Incontinence: No Hx Prostate Problems: No Hx Sexually Transmitted Disorders: No Hx Urinary Tract Infection: No - PSYCHIATRIC Hx Substance Use: Yes - SURGICAL HISTORY Hx Amputation: No Hx Appendectomy: No Hx Cardiac Catheterization: Yes Hx Cholecystectomy: No Hx Coronary Stent: Yes Hx Gastric Bypass Surgery: No Hx Hysterectomy: No Hx Joint Replacement: No Hx Kidney Transplant: No Hx Liver Transplant: No Hx Mastectomy: No Hx Musculoskeletal Surgery: (rhinoplasty) Hx Open Heart Surgery: Yes (CABG) Hx Orthopedic Surgery: No Hx Splenectomy: No Hx Valve Replacement: No - ANESTHESIA Hx Anesthesia: Yes Hx Anesthesia Reactions: No Hx Malignant Hyperthermia: No Meds Home Medications: Home Medication List Medication Instructions Recorded Confirmed Type Metoprolol Tartrate [Lopressor] 25 mg PO BID #60 tab 08/27/17 Rx Allergies/Adverse Reactions: Allergies Allergy/AdvReac Type Severity Reaction Status Date / Time acetaminophen [From Percocet] Allergy .hallucinat Verified 08/21/17 20:07 ions oxycodone [From Percocet] Allergy RASH Verified 08/21/17 20:07 warfarin [From Coumadin] Allergy RASH Verified 08/21/17 20:07 - Medications Medications: Current Medications Alprazolam (Xanax) 0.5 mg PO DAILY PRN; Protocol PRN Reason: Anxiety Last Admin: 08/25/17 22:07 Dose: 0.5 mg Aspirin (Ecotrin) 81 mg PO DAILY [facility] Last Admin: 08/27/17 09:44 Dose: 81 mg Atorvastatin Calcium (Lipitor) 40 mg PO DIN [facility] Last Admin: 08/26/17 17:39 Dose: 40 mg Digoxin (Digoxin) 0.125 mg PO 1400 [facility] Last Admin: 08/27/17 13:29 Dose: 0.125 mg Diltiazem HCl (Cardizem Cd) 120 mg PO DAILY [facility] Last Admin: 08/27/17 09:44 Dose: 120 mg Gabapentin (Neurontin) 300 mg PO TID [facility] PRN Reason: Protocol Last Admin: 08/27/17 13:29 Dose: 300 mg Insulin Detemir (Levemir) 20 unit SC Q12 [facility] Last Admin: 08/26/17 09:51 Dose: 20 unit Insulin Human Regular (Humulin R Med) 0 units SC [facility] PRN Reason: Protocol Last Admin: 08/27/17 12:04 Dose: Not Given Levetiracetam (Keppra) 500 mg PO Q12 [facility] Last Admin: 08/27/17 09:44 Dose: 500 mg Metoprolol Tartrate (Lopressor) 25 mg PO BID [facility] Last Admin: 08/27/17 09:44 Dose: 25 mg Morphine Sulfate (Morphine) 1 mg IVP Q4H PRN PRN Reason: Pain, severe (8-10) Last Admin: 08/25/17 16:10 Dose: 1 mg Pantoprazole Sodium (Protonix Ec Tab) 40 mg PO 0600 [facility] Last Admin: 08/27/17 06:33 Dose: 40 mg Paroxetine HCl (Paxil) 10 mg PO HS [facility] Last Admin: 08/26/17 21:59 Dose: 10 mg Rivaroxaban (Xarelto) 15 mg PO DAILY [facility] PRN Reason: Protocol Last Admin: 08/26/17 09:50 Dose: 15 mg Thiamine HCl (Vitamin B1 Tab) 100 mg PO DAILY [facility] Last Admin: 08/27/17 09:44 Dose: 100 mg Physical Exam - Constitutional Appears: Chronically Ill - Head Exam Head Exam: NORMAL INSPECTION - Eye Exam Eye Exam: Normal appearance, PERRL - ENT Exam ENT Exam: Mucous Membranes Moist - Neck Exam Neck exam: Positive for: Normal Inspection - Respiratory Exam Respiratory Exam: Decreased Breath Sounds, NORMAL BREATHING PATTERN - Cardiovascular Exam Cardiovascular Exam: Irregular Rhythm, +S1, +S2 - GI/Abdominal Exam GI & Abdominal Exam: Distended, Normal Bowel Sounds - Extremities Exam Additional comments: lower extremity edema L>R - Neurological Exam Neurological exam: Alert - Skin Skin Exam: Dry, Pallor - Additional Findings Additional findings: Palliative performance scale rating 40% Results - Vital Signs Recent Vital Signs: Last Vital Signs Temp 97.6 F 08/26/17 16:52 Pulse 81 08/27/17 14:00 Resp 18 08/26/17 16:52 BP 131/100 H 08/26/17 17:39 Pulse Ox 98 08/26/17 16:52 - Labs Result Diagrams: 08/27/17 06:30 08/27/17 06:30 Labs: Laboratory Results - last 24 hr 08/26/17 08/26/17 08/26/17 11:33 16:37 21:21 WBC RBC Hgb Hct MCV MCH MCHC RDW Plt Count MPV Gran % Lymph % (Auto) Thomas % (Auto) Eos % (Auto) Baso % (Auto) Gran # Lymph # (Auto) Thomas # (Auto) Eos # (Auto) Baso # (Auto) Sodium Potassium Chloride Carbon Dioxide Anion Gap BUN Creatinine Est GFR ( Amer) Est GFR (Non-Af Amer) POC Glucose (mg/dL) 118 H 85 73 Random Glucose Calcium Total Bilirubin AST ALT Alkaline Phosphatase Total Protein Albumin Globulin Albumin/Globulin Ratio 08/27/17 08/27/17 06:30 06:30 WBC 7.9 RBC 4.15 Hgb 11.0 L Hct 35.7 L MCV 86.0 MCH 26.5 MCHC 30.8 L RDW 14.4 Plt Count 185 MPV 10.2 Gran % 85.8 H Lymph % (Auto) 7.2 L Thomas % (Auto) 6.5 H Eos % (Auto) 0.4 L Baso % (Auto) 0.1 Gran # 6.77 H Lymph # (Auto) 0.6 L Thomas # (Auto) 0.5 Eos # (Auto) 0.0 Baso # (Auto) 0.01 Sodium 143 Potassium 3.8 Chloride 104 Carbon Dioxide 28 Anion Gap 15 BUN 17 Creatinine 0.8 Est GFR ( Amer) > 60 Est GFR (Non-Af Amer) > 60 POC Glucose (mg/dL) Random Glucose 101 Calcium 8.7 Total Bilirubin 0.6 AST 28 ALT 25 Alkaline Phosphatase 91 Total Protein 5.6 L Albumin 2.8 L Globulin 2.8 Albumin/Globulin Ratio 1.0 L Assessment & Plan - Assessment and Plan (Free Text) Assessment: 67 year old male with history of pancreatic cancer , liver metastasis, Hep C, ascites who was admitted with weakness, dehydration,ascites and right pleural effusion. The patient is alert, oriented.He denies shortness of breath, pain. He offers no complaints Patient's friend Kaden at bedside. Discussed goals of care. Kaden aware of patients medical condition. The patient states he wants to go home. He intends to follow up at [facility] for further treatment. The patient indicated that he wants Kaden to be his healthcare /financial POA. Kaden states he is willing to be POA. Patient wishes to remain full code status Plan: Goals of care Follow up [facility] clinic
--- NOTE | 2017-08-27 15:25 | CP.PCM.DIS ---
<Sorin Lr - Last Filed: 08/27/17 14:55> Provider - Provider Date of Admission: 08/25/17 08:47 Attending physician: Heather Chou MD Primary care physician: NO PRIMARY CARE PROVIDER Consults: Cardio - [place] Palliative Care - [place] Time Spent in preparation of Discharge (in minutes): 50 Hospital Course - Lab Results Lab Results: Most Recent Lab Values WBC 7.9 10^3/ul (4.5-11.0) 08/27/17 06:30 RBC 4.15 10^6/uL (3.5-6.1) 08/27/17 06:30 Hgb 11.0 g/dL (14.0-18.0) L 08/27/17 06:30 Hct 35.7 % (42.0-52.0) L 08/27/17 06:30 MCV 86.0 fl (80.0-105.0) 08/27/17 06:30 MCH 26.5 pg (25.0-35.0) 08/27/17 06:30 MCHC 30.8 g/dl (31.0-37.0) L 08/27/17 06:30 RDW 14.4 % (11.5-14.5) 08/27/17 06:30 Plt Count 185 10^3/uL (120.0-450.0) 08/27/17 06:30 MPV 10.2 fl (7.0-11.0) 08/27/17 06:30 Gran % 85.8 % (50.0-68.0) H 08/27/17 06:30 Lymph % (Auto) 7.2 % (22.0-35.0) L 08/27/17 06:30 Williams % (Auto) 6.5 % (1.0-6.0) H 08/27/17 06:30 Eos % (Auto) 0.4 % (1.5-5.0) L 08/27/17 06:30 Baso % (Auto) 0.1 % (0.0-3.0) 08/27/17 06:30 Gran # 6.77 (1.4-6.5) H 08/27/17 06:30 Lymph # (Auto) 0.6 (1.2-3.4) L 08/27/17 06:30 Williams # (Auto) 0.5 (0.1-0.6) 08/27/17 06:30 Eos # (Auto) 0.0 (0.0-0.7) 08/27/17 06:30 Baso # (Auto) 0.01 K/mm3 (0.0-2.0) 08/27/17 06:30 PT 13.0 SECONDS (9.4-12.5) H 08/21/17 20:36 INR 1.14 (0.93-1.08) H 08/21/17 20:36 APTT 30.1 Seconds (25.1-36.5) 08/21/17 20:36 pCO2 36 mm/Hg (35-45) 08/22/17 01:25 pO2 71.0 mm/Hg (80-100) L 08/22/17 01:25 HCO3 25.6 mmol/L (21-28) 08/22/17 01:25 ABG pH 7.46 (7.35-7.45) H 08/22/17 01:25 ABG Total CO2 26.7 mmol.L (22-28) 08/22/17 01:25 ABG O2 Saturation 96.6 % (95-98) 08/22/17 01:25 ABG O2 Content 14.6 ML/dl (15-23) L 08/22/17 01:25 ABG Base Excess 1.9 mmol/L (-2.0-3.0) 08/22/17 01:25 ABG Hemoglobin 11.1 g/dL (11.7-17.4) L 08/22/17 01:25 ABG Carboxyhemoglobin 2.0 % (0.5-1.5) H 08/22/17 01:25 POC ABG HHb (Measured) 3.3 % (0-5) 08/22/17 01:25 ABG Methemoglobin 1.1 % (0.0-3.0) 08/22/17 01:25 ABG O2 Capacity 15.1 mL/dl (16-24) L 08/22/17 01:25 VBG pH 7.43 (7.32-7.43) 08/21/17 23:48 VBG pCO2 38.0 (40-60) L 08/21/17 23:48 VBG HCO3 25.2 mmol/l (21-28) 08/21/17 23:48 VBG Total CO2 26.4 mmol.L (22-28) 08/21/17 23:48 VBG O2 Sat (Calc) 99.9 % (40-65) H 08/21/17 23:48 VBG Base Excess 1.0 mmol/L (0.0-2.0) 08/21/17 23:48 VBG Potassium 4.0 mmol/L (3.6-5.2) 08/21/17 23:48 Hgb O2 Saturation 93.5 % (95.0-98.0) L 08/22/17 01:25 Sodium 137.0 mmol/L (132-148) 08/21/17 23:48 Chloride 107.0 mmol/L (98-107) 08/21/17 23:48 Glucose 91 mg/dl (75-110) 08/21/17 23:48 Lactate 1.1 mmol/L (0.7-2.1) 08/21/17 23:48 FiO2 28.0 % 08/22/17 01:25 Sodium 143 mmol/L (132-148) 08/27/17 06:30 Potassium 3.8 mmol/L (3.6-5.0) 08/27/17 06:30 Chloride 104 mmol/L (98-107) 08/27/17 06:30 Carbon Dioxide 28 mmol/L (21-33) 08/27/17 06:30 Anion Gap 15 (10-20) 08/27/17 06:30 BUN 17 mg/dL (7-21) 08/27/17 06:30 Creatinine 0.8 mg/dl (0.8-1.5) 08/27/17 06:30 Est GFR ( Amer) > 60 08/27/17 06:30 Est GFR (Non-Af Amer) > 60 08/27/17 06:30 POC Glucose (mg/dL) 73 mg/dL (65-110) 08/26/17 21:21 Random Glucose 101 mg/dL (70-110) 08/27/17 06:30 Calcium 8.7 mg/dL (8.4-10.5) 08/27/17 06:30 Phosphorus 4.1 mg/dL (2.5-4.5) 08/21/17 20:36 Magnesium 2.1 mg/dL (1.7-2.2) 08/21/17 20:36 Total Bilirubin 0.6 mg/dL (0.2-1.3) 08/27/17 06:30 AST 28 U/L (17-59) 08/27/17 06:30 ALT 25 U/L (7-56) 08/27/17 06:30 Alkaline Phosphatase 91 U/L (38-126) 08/27/17 06:30 Ammonia < 9 umol/L (9-33) L 08/22/17 10:30 Total Creatine Kinase 26 U/L (35-230) L 08/26/17 03:05 Troponin I 0.02 ng/mL 08/26/17 03:05 Total Protein 5.6 g/dL (5.8-8.3) L 08/27/17 06:30 Albumin 2.8 g/dL (3.0-4.8) L 08/27/17 06:30 Globulin 2.8 gm/dL 08/27/17 06:30 Albumin/Globulin Ratio 1.0 (1.1-1.8) L 08/27/17 06:30 Lipase 92 U/L (23-300) 08/21/17 20:36 Procalcitonin 0.60 NG/ML (0.19-0.49) H 08/21/17 20:36 Venous Blood Potassium 4.0 mmol/L (3.6-5.2) 08/21/17 23:48 Urine Color Yellow (YELLOW) 08/21/17 22:51 Urine Appearance Clear (CLEAR) 08/21/17 22:51 Urine pH 5.5 (4.7-8.0) 08/21/17 22:51 Ur Specific Prospect >= 1.030 (1.005-1.035) 08/21/17 22:51 Urine Protein Trace mg/dL (<30 mg/dL) H 08/21/17 22:51 Urine Glucose (UA) Negative mg/dL (NEGATIVE) 08/21/17 22:51 Urine Ketones Trace mg/dL (NEGATIVE) H 08/21/17 22:51 Urine Blood Trace-intact (NEGATIVE) H 08/21/17 22:51 Urine Nitrate Negative (NEGATIVE) 08/21/17 22:51 Urine Bilirubin Small (NEGATIVE) H 08/21/17 22:51 Urine Urobilinogen 0.2 E.U./dL (<1 E.U./dL) 08/21/17 22:51 Ur Leukocyte Esterase Negative Wanda/uL (NEGATIVE) 08/21/17 22:51 Urine RBC 2 - 5 /hpf (0-2) 08/21/17 22:51 Urine WBC 0 - 2 /hpf (0-6) 08/21/17 22:51 Ur Epithelial Cells 0 - 2 /hpf (0-5) 08/21/17 22:51 Urine Bacteria Few (NEG) 08/21/17 22:51 Digoxin 0.7 ng/mL (0.8-2.0) L 08/26/17 03:05 Urine Opiates Screen Positive (NEGATIVE) H 08/21/17 22:51 Urine Methadone Screen Negative (NEGATIVE) 08/21/17 22:51 Ur Barbiturates Screen Negative (NEGATIVE) 08/21/17 22:51 Ur Phencyclidine Scrn Negative (NEGATIVE) 08/21/17 22:51 Ur Amphetamines Screen Negative (NEGATIVE) 08/21/17 22:51 U Benzodiazepines Scrn Positive (NEGATIVE) 08/21/17 22:51 U Oth Cocaine Metabols Negative (NEGATIVE) 08/21/17 22:51 U Cannabinoids Screen Positive (NEGATIVE) H 08/21/17 22:51 Alcohol, Quantitative < 10 mg/dL (0-10) 08/21/17 20:36 - Hospital Course Hospital Course: As per admission documentation Patient is a 67 year old male with PMHx of Afib, Hep C, seizure, DVT, Diabetes who was recently admitted on 08/15/17 for evaluation and treatment of mechanical fall. 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 Patient was discharged on the afternoon of 08/21/17 and returned the same evening with symptoms of generalized weakness. Per ED attending, patient was unable to go home due to the generalized weakness and returned to [facility]. At this time, patient is altered. He is oriented to place and self but not time. He is only able answer yes or no questions and denied a 12-point review of systems including fever, chills, chest pain, SOB, abdominal pain, nausea, vomiting, changes in bowel habits or urinary symptoms. Hospital Course Patient was admitted for dehydration, lactic acidosis and generalized weakness, all believed to be secondary to GI/hepatobiliary adenocarcinoma. During his hospital stay, patient was seen by Cardiology (Dr. Kline) and Palliative Care. Patient was seen by Dr. Kline because he had a complaint of chest pain on . ACS was ruled out by EKG which was unchanged compared to previous and negative trops x3. Chest pain resolved by morning of 08/26/17. Patient also experienced severe abdominal pain on 08/26/17. An abdominal/pelvis CT with IV contrast was taken. Abdominal/pelvis CT with IV contrast 08/26/17: 1. Solitary loop of nondilated small bowel periumbilical hernia. No evidence of proximal dilatation. 2. New large right pleural effusion. 3. Increase in volume of abdominal and pelvic ascites. 4. Stable tumor burden in the abdomen and retroperitoneum. By morning of 08/27/17, all of patient's symptoms had resolved. He no longer complained of abdominal pain, weakness and was not short of breath. He was informed of CT results which showed increased ascites and right sided pleural effusion. Patient's friend, Kaden, was at bedside for this discussion. Patient was also seen by Palliative Care and stated that he did not want to go on hospice and wanted to be discharged home. He was offered treatment here at [facility] with evaluation by IR for thoracentesis/paracentesis but patient refused and stated he wanted to be discharged home. He said he will follow up on these problems with his doctor's at the [facility] who also take care of his cancer. Patient's friend, Kaden, stated that he will personally drive the patient to the [facility]. The importance of follow up was stressed to the patient and that his case is very serious due to the extent of his cancer. He was instructed to go directly to the nearest emergency room if he began to suffer any new or worsen symptoms, including but not limited to chest pain, shortness of breath, abdominal pain, nausea and/or vomiting. Patient stated he understands. Discharge instructions Patient is to be discharged home per Dr. Chou. Please make sure to take in as much fluids and food by mouth as possible. [facility] being [facility]. He is to continue to take all of his home medications as previously prescribed EXCEPT Metoprolol. The patient's dose of Metoprolol was decreased in half to an adverse reaction of a heart beat becoming too slow. If patient experiences any new or worsening symptoms, please go directly to the nearest emergency room. STOP taking home Metoprolol 50mg PO BID START new prescription Metoprolol 25mg PO BID Thank you for allowing us to take part in your care. Take care and best of luck. This is just a brief summary of the patient's hospital events. Please see EMR for full detail. Physical Exam Appears: No Acute Distress, Chronically Ill Head Exam: ATRAUMATIC, NORMOCEPHALIC Eye Exam: EOMI, Normal appearance, PERRL ENT Exam: Mucous Membranes Moist Neck Exam: absent: Lymphadenopathy Respiratory Exam: Clear to Ausculation Bilateral, NORMAL BREATHING PATTERN. absent: Accessory Muscle Use, Rales, Rhonchi, Wheezes, Respiratory Distress Cardiovascular Exam: Irregular Rhythm (afib on tele), +S1, +S2 GI & Abdominal Exam: Soft, Hernia (umbilical, non-reducible), Normal Bowel Sounds. absent: Distended, Firm, Guarding, Rigid, Tenderness Extremities Exam: Pedal Edema (1+ pitting). absent: Calf Tenderness Neurological Exam: Alert, Awake, Oriented x3 Psychiatric exam: Normal Mood, Normal Affect Skin Exam: Dry, Warm Discharge Exam - Head Exam Head Exam: NORMAL INSPECTION Discharge Plan - Discharge Medications Prescriptions: Metoprolol Tartrate [Lopressor] 25 mg PO BID #60 tab - Follow Up Plan Condition: FAIR Disposition: HOME/ ROUTINE Instructions: Preventing Falls in the Older Adult, Dehydration, Adult (DC) Additional Instructions: Patient is to be discharged home per Dr. Chou. Please make sure to take in as much fluids and food by mouth as possible. Patient is to follow up with his primary care physician at the [place] [facility] within one week of being discharged. He is to continue to take all of his home medications as previously prescribed EXCEPT Metoprolol. The patient's dose of Metoprolol was decreased in half to an adverse reaction of a heart beat becoming too slow. If patient experiences any new or worsening symptoms, please go directly to the nearest emergency room. STOP taking home Metoprolol 50mg PO BID START new prescription Metoprolol 25mg PO BID Thank you for allowing us to take part in your care. Take care and best of luck. Referrals: PCP,NO [Primary Care Provider] - <Heather Chou - Last Filed: 08/28/17 07:55> Provider - Provider Date of Admission: 08/25/17 08:47 Attending physician: Heather Chou MD Primary care physician: NO PRIMARY CARE PROVIDER Hospital Course - Lab Results Lab Results: Most Recent Lab Values WBC 7.9 10^3/ul (4.5-11.0) 08/27/17 06:30 RBC 4.15 10^6/uL (3.5-6.1) 08/27/17 06:30 Hgb 11.0 g/dL (14.0-18.0) L 08/27/17 06:30 Hct 35.7 % (42.0-52.0) L 08/27/17 06:30 MCV 86.0 fl (80.0-105.0) 08/27/17 06:30 MCH 26.5 pg (25.0-35.0) 08/27/17 06:30 MCHC 30.8 g/dl (31.0-37.0) L 08/27/17 06:30 RDW 14.4 % (11.5-14.5) 08/27/17 06:30 Plt Count 185 10^3/uL (120.0-450.0) 08/27/17 06:30 MPV 10.2 fl (7.0-11.0) 08/27/17 06:30 Gran % 85.8 % (50.0-68.0) H 08/27/17 06:30 Lymph % (Auto) 7.2 % (22.0-35.0) L 08/27/17 06:30 Williams % (Auto) 6.5 % (1.0-6.0) H 08/27/17 06:30 Eos % (Auto) 0.4 % (1.5-5.0) L 08/27/17 06:30 Baso % (Auto) 0.1 % (0.0-3.0) 08/27/17 06:30 Gran # 6.77 (1.4-6.5) H 08/27/17 06:30 Lymph # (Auto) 0.6 (1.2-3.4) L 08/27/17 06:30 Williams # (Auto) 0.5 (0.1-0.6) 08/27/17 06:30 Eos # (Auto) 0.0 (0.0-0.7) 08/27/17 06:30 Baso # (Auto) 0.01 K/mm3 (0.0-2.0) 08/27/17 06:30 PT 13.0 SECONDS (9.4-12.5) H 08/21/17 20:36 INR 1.14 (0.93-1.08) H 08/21/17 20:36 APTT 30.1 Seconds (25.1-36.5) 08/21/17 20:36 pCO2 36 mm/Hg (35-45) 08/22/17 01:25 pO2 71.0 mm/Hg (80-100) L 08/22/17 01:25 HCO3 25.6 mmol/L (21-28) 08/22/17 01:25 ABG pH 7.46 (7.35-7.45) H 08/22/17 01:25 ABG Total CO2 26.7 mmol.L (22-28) 08/22/17 01:25 ABG O2 Saturation 96.6 % (95-98) 08/22/17 01:25 ABG O2 Content 14.6 ML/dl (15-23) L 08/22/17 01:25 ABG Base Excess 1.9 mmol/L (-2.0-3.0) 08/22/17 01:25 ABG Hemoglobin 11.1 g/dL (11.7-17.4) L 08/22/17 01:25 ABG Carboxyhemoglobin 2.0 % (0.5-1.5) H 08/22/17 01:25 POC ABG HHb (Measured) 3.3 % (0-5) 08/22/17 01:25 ABG Methemoglobin 1.1 % (0.0-3.0) 08/22/17 01:25 ABG O2 Capacity 15.1 mL/dl (16-24) L 08/22/17 01:25 VBG pH 7.43 (7.32-7.43) 08/21/17 23:48 VBG pCO2 38.0 (40-60) L 08/21/17 23:48 VBG HCO3 25.2 mmol/l (21-28) 08/21/17 23:48 VBG Total CO2 26.4 mmol.L (22-28) 08/21/17 23:48 VBG O2 Sat (Calc) 99.9 % (40-65) H 08/21/17 23:48 VBG Base Excess 1.0 mmol/L (0.0-2.0) 08/21/17 23:48 VBG Potassium 4.0 mmol/L (3.6-5.2) 08/21/17 23:48 Hgb O2 Saturation 93.5 % (95.0-98.0) L 08/22/17 01:25 Sodium 137.0 mmol/L (132-148) 08/21/17 23:48 Chloride 107.0 mmol/L (98-107) 08/21/17 23:48 Glucose 91 mg/dl (75-110) 08/21/17 23:48 Lactate 1.1 mmol/L (0.7-2.1) 08/21/17 23:48 FiO2 28.0 % 08/22/17 01:25 Sodium 143 mmol/L (132-148) 08/27/17 06:30 Potassium 3.8 mmol/L (3.6-5.0) 08/27/17 06:30 Chloride 104 mmol/L (98-107) 08/27/17 06:30 Carbon Dioxide 28 mmol/L (21-33) 08/27/17 06:30 Anion Gap 15 (10-20) 08/27/17 06:30 BUN 17 mg/dL (7-21) 08/27/17 06:30 Creatinine 0.8 mg/dl (0.8-1.5) 08/27/17 06:30 Est GFR ( Amer) > 60 08/27/17 06:30 Est GFR (Non-Af Amer) > 60 08/27/17 06:30 POC Glucose (mg/dL) 73 mg/dL (65-110) 08/26/17 21:21 Random Glucose 101 mg/dL (70-110) 08/27/17 06:30 Calcium 8.7 mg/dL (8.4-10.5) 08/27/17 06:30 Phosphorus 4.1 mg/dL (2.5-4.5) 08/21/17 20:36 Magnesium 2.1 mg/dL (1.7-2.2) 08/21/17 20:36 Total Bilirubin 0.6 mg/dL (0.2-1.3) 08/27/17 06:30 AST 28 U/L (17-59) 08/27/17 06:30 ALT 25 U/L (7-56) 08/27/17 06:30 Alkaline Phosphatase 91 U/L (38-126) 08/27/17 06:30 Ammonia < 9 umol/L (9-33) L 08/22/17 10:30 Total Creatine Kinase 26 U/L (35-230) L 08/26/17 03:05 Troponin I 0.02 ng/mL 08/26/17 03:05 Total Protein 5.6 g/dL (5.8-8.3) L 08/27/17 06:30 Albumin 2.8 g/dL (3.0-4.8) L 08/27/17 06:30 Globulin 2.8 gm/dL 08/27/17 06:30 Albumin/Globulin Ratio 1.0 (1.1-1.8) L 08/27/17 06:30 Lipase 92 U/L (23-300) 08/21/17 20:36 Procalcitonin 0.60 NG/ML (0.19-0.49) H 08/21/17 20:36 Venous Blood Potassium 4.0 mmol/L (3.6-5.2) 08/21/17 23:48 Urine Color Yellow (YELLOW) 08/21/17 22:51 Urine Appearance Clear (CLEAR) 08/21/17 22:51 Urine pH 5.5 (4.7-8.0) 08/21/17 22:51 Ur Specific Prospect >= 1.030 (1.005-1.035) 08/21/17 22:51 Urine Protein Trace mg/dL (<30 mg/dL) H 08/21/17 22:51 Urine Glucose (UA) Negative mg/dL (NEGATIVE) 08/21/17 22:51 Urine Ketones Trace mg/dL (NEGATIVE) H 08/21/17 22:51 Urine Blood Trace-intact (NEGATIVE) H 05/03/18 22:51 Urine Nitrate Negative (NEGATIVE) 08/21/17 22:51 Urine Bilirubin Small (NEGATIVE) H 08/21/17 22:51 Urine Urobilinogen 0.2 E.U./dL (<1 E.U./dL) 08/21/17 22:51 Ur Leukocyte Esterase Negative Wanda/uL (NEGATIVE) 08/21/17 22:51 Urine RBC 2 - 5 /hpf (0-2) 08/21/17 22:51 Urine WBC 0 - 2 /hpf (0-6) 08/21/17 22:51 Ur Epithelial Cells 0 - 2 /hpf (0-5) 08/21/17 22:51 Urine Bacteria Few (NEG) 08/21/17 22:51 Digoxin 0.7 ng/mL (0.8-2.0) L 08/26/17 03:05 Urine Opiates Screen Positive (NEGATIVE) H 08/21/17 22:51 Urine Methadone Screen Negative (NEGATIVE) 08/21/17 22:51 Ur Barbiturates Screen Negative (NEGATIVE) 08/21/17 22:51 Ur Phencyclidine Scrn Negative (NEGATIVE) 08/21/17 22:51 Ur Amphetamines Screen Negative (NEGATIVE) 08/21/17 22:51 U Benzodiazepines Scrn Positive (NEGATIVE) 08/21/17 22:51 U Oth Cocaine Metabols Negative (NEGATIVE) 08/21/17 22:51 U Cannabinoids Screen Positive (NEGATIVE) H 08/21/17 22:51 Alcohol, Quantitative < 10 mg/dL (0-10) 08/21/17 20:36 Attending/Attestation - Attestation I have personally seen and examined this patient.: Yes I have fully participated in the care of the patient.: Yes I have reviewed all pertinent clinical information, including history, physical exam and plan: Yes Notes (Text): 08/27/17 67 year old male with past medical history of CAD s/p CABG, Afib, hepatitis C, diabetes, seizure, and recently diagnosed GI / hepatobiliary adenocarcinoma who presented with weakness and confusion. CT head was negative. UTox was positive for opiates, benzodiazepines and marijuana. PT evaluation was appreciated who recommended home with services. Two days prior he complained of chest pain which has resolved. Serial cardiac enzymes were negative and ACS was ruled out. He is on metoprolol, cardizem, digoxin and xarelto for afib. He was seen by cardiology. Yesterday he complained of abdominal pain and distention and poor appetite. Repeat CT abd/pelvis showed ascites and right pleural effusion. Findings were discussed with the patient and his friend Kaden (ALBERTO) and offered IR evaluation for drainage. However patient refused stating his symptoms are better and he prefers to have his follow up at the [facility]. POA stated he will be able to transport patient. He denies any chest pain, abdominal pain or shortness of breath today. Patient is discharged home to follow up at the [facility]. Follow up with hematology / oncology. Counselled on risks of substance abuse. Heather Chou MD Hospitalist.
--- NOTE | 2017-08-27 15:29 | PN ---
DATE: 08/27/2017 Addendum to the initial progress note dictated by our nurse practitioner, Elicia Sanchez. REASON FOR ADDENDUM: The patient has no further episode of chest pain. NJ was ruled out. We will supplement potassium and we will sign off. I am glad to follow p.r.n. Continue current medication. Now, the patient is waiting for placement. CVS status is stable. Upon discharge, the patient will be followed up at [facility]. Discussed with the daughter. Lisa Kline MD
== END 2017-08-27 15:41 | disposition home or self-care (01) | DRG 436 ==
LOC: ED 19:49 → ERH 23:55 → 3RSO 08-22 01:44 → OBSVTOIN 08-25 08:47
PROVIDERS: ADMIT Internal Medicine; ATTEND Internal Medicine
DX: C24.9 Malignant neoplasm of biliary tract, unspecified (principal); E87.2 Acidosis; E86.0 Dehydration; C25.9 Malignant neoplasm of pancreas, unspecified; C78.7 Secondary malignant neoplasm of liver and intrahepatic bile duct; I48.92 Unspecified atrial flutter; R18.8 Other ascites; I25.10 Atherosclerotic heart disease of native coronary artery without angina pectoris; B19.20 Unspecified viral hepatitis C without hepatic coma; I48.2 Chronic atrial fibrillation; E11.42 Type 2 diabetes mellitus with diabetic polyneuropathy; G40.909 Epilepsy, unspecified, not intractable, without status epilepticus; F12.90 Cannabis use, unspecified, uncomplicated; K21.9 Gastro-esophageal reflux disease without esophagitis; I10 Essential (primary) hypertension; E78.5 Hyperlipidemia, unspecified; F41.9 Anxiety disorder, unspecified; Z79.01 Long term (current) use of anticoagulants; Z79.4 Long term (current) use of insulin; Z86.718 Personal history of other venous thrombosis and embolism; Z95.1 Presence of aortocoronary bypass graft; Z87.891 Personal history of nicotine dependence; Z95.5 Presence of coronary angioplasty implant and graft

== ENCOUNTER 2017-09-07 00:35 | Emergency (ER) | payer OTHER ==
[2017-09-07 00:36] VITALS: PULSE 82
[2017-09-07 00:42] VITALS: BMI 24.3
[2017-09-07 00:48] VITALS: RESP 18
[2017-09-07] MEDS ORDERED: Lidocaine 1% w Epi 1:100,000 Inj IJ STA (00:56)
[2017-09-07] MEDS ORDERED: TDAP Vaccine 0.5 mL Syr IM ONE (00:57)
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
[2017-09-07 02:12] VITALS: BP 110/78; PULSE 82; TEMP 98; O2SAT 98
== END 2017-09-07 02:11 | disposition home or self-care (01) ==
LOC: ED 00:35
DX: S81.812A Laceration without foreign body, left lower leg, initial encounter (principal); W01.0XXA Fall on same level from slipping, tripping and stumbling without subsequent striking against object, initial encounter; Y92.009 Unspecified place in unspecified non-institutional (private) residence as the place of occurrence of the external cause; Z23 Encounter for immunization

== ENCOUNTER 2017-09-07 02:40 | Inpatient (IN) | payer OTHER ==
[2017-09-07 02:40] VITALS: BMI 24.3
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
[2017-09-07] MEDS ORDERED: diltiaZEM IVPB 100mg in NS 100 ML IV PRN (03:08)
[2017-09-07 03:22] LABS: BASO # 0.01 K/mm3 (0.0-2.0); BASO % 0.1 % (0.0-3.0); EOS % 0.2 % (1.5-5.0); GRAN # 7.7 (1.4-6.5); GRAN % 88.2 % (50.0-68.0); HEMOGLOBIN 12.9 g/dL (14.0-18.0); LYMPH # 0.6 (1.2-3.4); LYMPH % 6.3 % (22.0-35.0); MEAN CELL VOLUME 86.5 fl (80.0-105.0); MEAN CORPUSCULAR HEMOGLOBIN 27.3 pg (25.0-35.0); MEAN CORPUSCULAR HGB CONC 31.5 g/dl (31.0-37.0); MONO # 0.5 (0.1-0.6); MONO % 5.2 % (1.0-6.0); RBC 4.73 10^6/uL (3.5-6.1); RED CELL DISTRIBUTION WIDTH 14.7 % (11.5-14.5); WHITE BLOOD COUNT 8.7 10^3/ul (4.5-11.0)
[2017-09-07 03:48] LABS: ALB/GLOB RATIO 1.1 (1.1-1.8); ALBUMIN 3.2 g/dL (3.0-4.8)
[2017-09-07] MEDS ORDERED: Sodium Chloride 0.9% 500 ML IV STA (04:39)
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
[2017-09-07] MEDS: Insulin Reg-MEDIUM-Coverage SC SCH ×5 (08:26→23:03)
--- NOTE | 2017-09-07 09:17 | RAD ---
HISTORY: Weakness COMPARISON: 08/21/2017 FINDINGS: LUNGS: Interval improvement in right lower lobe infiltrate. PLEURA: Substantial decrease in right pleural effusion. CARDIOVASCULAR: No radiographic findings to suggest acute or significant cardiovascular disease. Venous access catheter in stable, satisfactory position. OSSEOUS STRUCTURES: No significant abnormalities. VISUALIZED UPPER ABDOMEN: Normal. OTHER FINDINGS: None. IMPRESSION: Near complete resolution right lower lobe infiltrate/right pleural effusion. Left lung is clear.
[2017-09-07] MEDS: diltiaZEM 120 mg/24 Hours CD Cap PO SCH (09:25)
[2017-09-07] MEDS ORDERED: Morphine 2 mg/ml ISec IVP PRN (11:52)
--- NOTE | 2017-09-07 13:07 | CARD ---
APPROVED REPORT EKG Measurement Heart [id number] <Conclusion> Atrial fibrillation with rapid ventricular response ST & T wave abnormality, consider inferior ischemia or digitalis effect ST & T wave abnormality, consider anterolateral ischemia or digitalis effect Abnormal ECG
[2017-09-07] MEDS: Digoxin 125 mcg (0.125 mg) Tab PO SCH (14:08)
[2017-09-07 17:44] LABS: BARBITURATES, UR NEGATIVE (NEGATIVE); BENZODIAZEPINES, UR POSITIVE (NEGATIVE); OPIATES, UR POSITIVE (NEGATIVE); PHENCYCLIDINE, UR NEGATIVE (NEGATIVE)
[2017-09-07] MEDS ORDERED: Metoprolol 1 mg/ml Inj IVP ONE (22:20)
[2017-09-07] MEDS ORDERED: levETIRAcetam 500mg IVPB 500 MG/100 ML BAG IVPB STA (22:24)
[2017-09-07] MEDS: Morphine 30 mg SR Tab PO SCH (23:04)
[2017-09-08 06:34] LABS: BASO # 0.02 K/mm3 (0.0-2.0); BASO % 0.2 % (0.0-3.0); EOS # 0.1 (0.0-0.7); EOS % 0.9 % (1.5-5.0); GRAN # 6.69 (1.4-6.5); GRAN % 83.1 % (50.0-68.0); HEMOGLOBIN 12.2 g/dL (14.0-18.0); LYMPH # 0.7 (1.2-3.4); LYMPH % 8.8 % (22.0-35.0); MEAN CORPUSCULAR HEMOGLOBIN 26.8 pg (25.0-35.0); MEAN CORPUSCULAR HGB CONC 31.1 g/dl (31.0-37.0); MEAN PLATELET VOLUME 11.3 fl (7.0-11.0); MONO # 0.6 (0.1-0.6); RBC 4.56 10^6/uL (3.5-6.1); RED CELL DISTRIBUTION WIDTH 15.2 % (11.5-14.5); WHITE BLOOD COUNT 8.1 10^3/ul (4.5-11.0)
[2017-09-08 07:41] LABS: ALBUMIN 2.7 g/dL (3.0-4.8); CALCIUM 8.5 mg/dL (8.4-10.5)
[2017-09-08] MEDS: Insulin Reg-MEDIUM-Coverage SC SCH ×4 (07:46→22:09)
--- NOTE | 2017-09-08 08:10 | CP.PCM.PN ---
<Cam Valdez - Last Filed: 09/08/17 10:58> Subjective - Date & Time of Evaluation Date of Evaluation: 09/08/17 Time of Evaluation: 06:00 - Subjective Subjective: Patient seen and evaluated bedside. Overnight patient had non bloody vomiting and episode of elevated HR in 140s for which he was given IV lopressor. Patient drowsy this morning. Denies any chest pain, shortness of breath, nausea, fever, chills or any other complaints at this time. Objective - Vital Signs/Intake and Output Vital Signs (last 24 hours): Temp Pulse Resp BP Pulse Ox 98 F 114 H 19 108/74 97 09/08/17 05:55 09/08/17 05:55 09/08/17 05:55 09/08/17 05:55 09/08/17 05:55 Intake and Output: 09/08/17 09/08/17 06:59 18:59 Intake Total 0 Balance 0 - Medications Medications: Current Medications Alprazolam (Xanax) 0.5 mg PO BID PRN; Protocol PRN Reason: Anxiety Aspirin (Ecotrin) 81 mg PO DAILY [facility] Last Admin: 09/07/17 09:24 Dose: 81 mg Atorvastatin Calcium (Lipitor) 40 mg PO DIN [facility] Last Admin: 09/07/17 18:21 Dose: 40 mg Cephalexin Monohydrate (Keflex) 500 mg PO TID [facility] PRN Reason: Protocol Stop: 09/14/17 10:01 Last Admin: 09/07/17 19:16 Dose: 500 mg Digoxin (Digoxin) 0.125 mg PO 1400 [facility] Last Admin: 09/07/17 14:08 Dose: 0.125 mg Diltiazem HCl (Cardizem Cd) 120 mg PO DAILY [facility] Last Admin: 09/07/17 09:25 Dose: 120 mg Gabapentin (Neurontin) 300 mg PO TID [facility] PRN Reason: Protocol Last Admin: 09/07/17 19:16 Dose: 300 mg Sodium Chloride (Sodium Chloride 0.9%) 100 mls @ 80 mls/hr IV .Q1H15M [facility] Insulin Human Regular (Humulin R Med) 0 units SC ACHS [facility] PRN Reason: Protocol Last Admin: 09/08/17 07:46 Dose: 1 units Levetiracetam (Keppra) 500 mg PO Q12 [facility] Last Admin: 09/07/17 23:04 Dose: Not Given Metoprolol Tartrate (Lopressor) 25 mg PO BID [facility] Last Admin: 09/07/17 19:16 Dose: 25 mg Morphine Sulfate (Morphine Extended Release Tab) 30 mg PO Q12 [facility] Last Admin: 09/07/17 23:04 Dose: Not Given Morphine Sulfate (Morphine) 1 mg IVP Q4H PRN PRN Reason: breakthrough pain Paroxetine HCl (Paxil) 10 mg PO HS [facility] Last Admin: 09/07/17 23:05 Dose: Not Given Rivaroxaban (Xarelto) 15 mg PO DAILY [facility] PRN Reason: Protocol Last Admin: 09/07/17 10:00 Dose: 15 mg Thiamine HCl (Vitamin B1 Tab) 100 mg PO DAILY [facility] Last Admin: 09/07/17 09:24 Dose: 100 mg - Labs Labs: 09/08/17 06:00 09/08/17 06:00 - Constitutional Appears: Non-toxic, No Acute Distress - Head Exam Head Exam: NORMAL INSPECTION, NORMOCEPHALIC - Eye Exam Eye Exam: EOMI, Normal appearance - ENT Exam ENT Exam: Mucous Membranes Moist - Respiratory Exam Respiratory Exam: Clear to Ausculation Bilateral, NORMAL BREATHING PATTERN - Cardiovascular Exam Cardiovascular Exam: Tachycardia, Irregular Rhythm - GI/Abdominal Exam GI & Abdominal Exam: Soft. absent: Tenderness - Extremities Exam Extremities Exam: Pedal Edema - Neurological Exam Neurological Exam: Alert, Awake. absent: Oriented x3 Assessment and Plan - Assessment and Plan (Free Text) Assessment: 67 year old male with PMHx of Afib, Hep C, seizure, DVT, and hepatic carcinoma, Diabetes who was admitted for atrial fibrillation with rapid ventricular response. Plan: Atrial fibriallation with rapid ventricular response - EKG initially showed afib and tachycardia, irregular rhythm - PO cardizem - Continue home xarelto - continue home metroprolol - continue home digoxin - digoxin level pending - Kidney function showing dehydration which may have precipitated RVR, started on fluids - EKG shows no acute ischemic changed compared to baseline; troponins .04 twice - telemetry monitoring H/O Adenocarcinoma of the Upper GI/Pancreatobiliary Origin - Pain control - Patient does not have POLST or advanced directive - Requested palliative care consult, Allyssa Le, reyes recs - social work consulted for placement concerns Hx of IDDM2 - ACHS - ISS Regular - Carbohydrate consistent diet Hx of Seizure disorders - Continue with keppra 500 mg bid - Seizure and fall precaution Hx of CAD s/p CABG - continue with Lopressor - continue with Lipitor - Continue home ASA Hx of Peripheral neuropathy - continue with gabapentin Hx of Anxiety - continue xanax 0.5 mg daily prn DVT prophylaxis- Og <Heather Chou - Last Filed: 09/08/17 14:00> Objective - Vital Signs/Intake and Output Vital Signs (last 24 hours): Temp Pulse Resp BP Pulse Ox 97.5 F L 78 18 97/70 L 97 09/08/17 12:00 09/08/17 12:00 09/08/17 12:00 09/08/17 12:00 09/08/17 05:55 Intake and Output: 09/08/17 09/08/17 06:59 18:59 Intake Total 0 680 Balance 0 680 - Medications Medications: Current Medications Alprazolam (Xanax) 0.5 mg PO BID PRN; Protocol PRN Reason: Anxiety Aspirin (Ecotrin) 81 mg PO DAILY [facility] Last Admin: 09/08/17 10:21 Dose: 81 mg Atorvastatin Calcium (Lipitor) 40 mg PO DIN [facility] Last Admin: 09/07/17 18:21 Dose: 40 mg Cephalexin Monohydrate (Keflex) 500 mg PO TID [facility] PRN Reason: Protocol Stop: 09/14/17 10:01 Last Admin: 09/08/17 10:20 Dose: 500 mg Digoxin (Digoxin) 0.125 mg PO 1400 [facility] Last Admin: 09/07/17 14:08 Dose: 0.125 mg Diltiazem HCl (Cardizem Cd) 120 mg PO DAILY [facility] Last Admin: 09/08/17 10:21 Dose: 120 mg Gabapentin (Neurontin) 300 mg PO TID [facility] PRN Reason: Protocol Last Admin: 09/08/17 10:20 Dose: 300 mg Sodium Chloride (Sodium Chloride 0.9%) 1,000 mls @ 80 mls/hr IV .[id number] [facility] Last Admin: 09/08/17 08:46 Dose: 80 mls/hr Insulin Human Regular (Humulin R Med) 0 units SC ACHS [facility] PRN Reason: Protocol Last Admin: 09/08/17 11:51 Dose: 1 units Levetiracetam (Keppra) 500 mg PO Q12 [facility] Last Admin: 09/08/17 10:20 Dose: 500 mg Metoprolol Tartrate (Lopressor) 25 mg PO BID [facility] Last Admin: 09/08/17 10:21 Dose: 25 mg Morphine Sulfate (Morphine Extended Release Tab) 30 mg PO Q12 [facility] Last Admin: 09/08/17 10:21 Dose: Not Given Morphine Sulfate (Morphine) 1 mg IVP Q4H PRN PRN Reason: breakthrough pain Paroxetine HCl (Paxil) 10 mg PO HS [facility] Last Admin: 09/07/17 23:05 Dose: Not Given Rivaroxaban (Xarelto) 15 mg PO DAILY [facility] PRN Reason: Protocol Last Admin: 09/08/17 10:21 Dose: 15 mg Thiamine HCl (Vitamin B1 Tab) 100 mg PO DAILY [facility] Last Admin: 09/08/17 10:21 Dose: 100 mg - Labs Labs: 09/08/17 06:00 09/08/17 06:00 Attending/Attestation - Attestation I have personally seen and examined this patient.: Yes I have fully participated in the care of the patient.: Yes I have reviewed all pertinent clinical information, including history, physical exam and plan: Yes Notes (Text): 09/08/17 13:57 67 year old male with past medical history of afib, hepatitis C, and GI/ pancreatobiliary adenocarcinoma who is admitted for afib with rvr. He was started on cardizem drip now switched to po. He is on digoxin and metoprolol as well. He is on xarelto. Will start on IVF for FLOYD/dehydration. Palliative care consult was requested. Will follow up with recommendations. Heather Chou MD Hospitalist.
[2017-09-08] MEDS: Sodium Chloride 0.9% 1,000 ML IV SCH ×2 (08:46→22:08)
[2017-09-08] MEDS: Morphine 30 mg SR Tab PO SCH ×2 (10:21→22:03)
[2017-09-08] MEDS: diltiaZEM 120 mg/24 Hours CD Cap PO SCH (10:21)
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
[2017-09-08] MEDS: Digoxin 125 mcg (0.125 mg) Tab PO SCH (14:13)
[2017-09-09 06:23] LABS: BASO # 0.03 K/mm3 (0.0-2.0); BASO % 0.4 % (0.0-3.0); EOS # 0.2 (0.0-0.7); EOS % 2.3 % (1.5-5.0); GRAN # 5.72 (1.4-6.5); GRAN % 80.8 % (50.0-68.0); HEMOGLOBIN 11.8 g/dL (14.0-18.0); LYMPH # 0.6 (1.2-3.4); LYMPH % 8.2 % (22.0-35.0); MEAN CELL VOLUME 86.3 fl (80.0-105.0); MEAN CORPUSCULAR HEMOGLOBIN 26.9 pg (25.0-35.0); MEAN CORPUSCULAR HGB CONC 31.2 g/dl (31.0-37.0); MEAN PLATELET VOLUME 10.6 fl (7.0-11.0); MONO # 0.6 (0.1-0.6); MONO % 8.3 % (1.0-6.0); RBC 4.38 10^6/uL (3.5-6.1); RED CELL DISTRIBUTION WIDTH 15.1 % (11.5-14.5); WHITE BLOOD COUNT 7.1 10^3/ul (4.5-11.0)
[2017-09-09 07:22] LABS: ALBUMIN 2.6 g/dL (3.0-4.8)
[2017-09-09 07:57] LABS: CALCIUM 8.2 mg/dL (8.4-10.5)
[2017-09-09] MEDS: Insulin Reg-MEDIUM-Coverage SC SCH ×4 (08:24→21:16)
[2017-09-09] MEDS: diltiaZEM 120 mg/24 Hours CD Cap PO SCH (09:18)
[2017-09-09] MEDS: Morphine 30 mg SR Tab PO SCH ×2 (09:20→21:16)
[2017-09-09] MEDS: Sodium Chloride 0.9% 1,000 ML IV SCH ×2 (09:54→21:16)
--- NOTE | 2017-09-09 12:55 | CP.PCM.PN ---
<Sorin Lr - Last Filed: 09/09/17 12:42> Subjective - Date & Time of Evaluation Date of Evaluation: 09/09/17 Time of Evaluation: 07:35 - Subjective Subjective: PGY1 Medicine Note for Dr. Chou Patient seen and examined at bedside this morning. Patient is much more awake and alert this morning. His heart rate is currently 80-90 bpm on telemetry. Patient is currently waiting for his son, Graeme, to arrive. Patient states he would like to go home as soon as possible. He is tolerating his diet and his pain has been well controlled. Denies fevers, chills, nausea, vomiting, diarrhea , constipation, chest pain, shortness of breath, abdominal pain, headaches, numbness or tingling. Objective - Vital Signs/Intake and Output Vital Signs (last 24 hours): Temp Pulse Resp BP Pulse Ox 98.5 F 76 20 149/95 H 95 09/09/17 06:00 09/09/17 10:00 09/09/17 06:00 09/09/17 09:18 09/09/17 06:00 Intake and Output: 09/09/17 09/09/17 06:59 18:59 Intake Total 240 Balance 240 - Medications Medications: Current Medications Alprazolam (Xanax) 0.5 mg PO BID PRN; Protocol PRN Reason: Anxiety Last Admin: 09/09/17 12:17 Dose: 0.5 mg Aspirin (Ecotrin) 81 mg PO DAILY [facility] Last Admin: 09/09/17 09:19 Dose: 81 mg Atorvastatin Calcium (Lipitor) 40 mg PO DIN [facility] Last Admin: 09/08/17 16:47 Dose: 40 mg Cephalexin Monohydrate (Keflex) 500 mg PO TID [facility] PRN Reason: Protocol Stop: 09/14/17 10:01 Last Admin: 09/09/17 09:19 Dose: 500 mg Digoxin (Digoxin) 0.125 mg PO 1400 [facility] Last Admin: 09/08/17 14:13 Dose: 0.125 mg Diltiazem HCl (Cardizem Cd) 120 mg PO DAILY [facility] Last Admin: 09/09/17 09:18 Dose: 120 mg Gabapentin (Neurontin) 300 mg PO TID [facility] PRN Reason: Protocol Last Admin: 09/09/17 09:19 Dose: 300 mg Sodium Chloride (Sodium Chloride 0.9%) 1,000 mls @ 80 mls/hr IV .[id number] [facility] Last Admin: 09/09/17 09:54 Dose: Not Given Insulin Human Regular (Humulin R Med) 0 units SC ACHS [facility] PRN Reason: Protocol Last Admin: 09/09/17 12:12 Dose: 1 units Levetiracetam (Keppra) 500 mg PO Q12 [facility] Last Admin: 09/09/17 09:19 Dose: 500 mg Metoprolol Tartrate (Lopressor) 25 mg PO BID [facility] Last Admin: 09/09/17 09:18 Dose: 25 mg Morphine Sulfate (Morphine Extended Release Tab) 30 mg PO Q12 [facility] Last Admin: 09/09/17 09:20 Dose: 30 mg Morphine Sulfate (Morphine) 1 mg IVP Q4H PRN PRN Reason: breakthrough pain Ondansetron HCl (Zofran Inj) 4 mg IVP Q6H PRN PRN Reason: Nausea/Vomiting Paroxetine HCl (Paxil) 10 mg PO HS [facility] Last Admin: 09/08/17 22:02 Dose: 10 mg Rivaroxaban (Xarelto) 15 mg PO DAILY [facility] PRN Reason: Protocol Last Admin: 09/09/17 09:18 Dose: 15 mg Thiamine HCl (Vitamin B1 Tab) 100 mg PO DAILY [facility] Last Admin: 09/09/17 09:18 Dose: 100 mg - Labs Labs: 09/09/17 06:00 09/09/17 06:00 - Constitutional Appears: Non-toxic, No Acute Distress - Head Exam Head Exam: ATRAUMATIC, NORMOCEPHALIC - ENT Exam ENT Exam: Mucous Membranes Moist - Respiratory Exam Respiratory Exam: Clear to Ausculation Bilateral, Rales, NORMAL BREATHING PATTERN. absent: Accessory Muscle Use, Rhonchi, Wheezes, Respiratory Distress - Cardiovascular Exam Cardiovascular Exam: Irregular Rhythm, +S1, +S2 - GI/Abdominal Exam GI & Abdominal Exam: Soft, Normal Bowel Sounds. absent: Distended, Firm, Guarding, Rigid, Tenderness - Extremities Exam Extremities Exam: Pedal Edema. absent: Calf Tenderness - Neurological Exam Neurological Exam: Alert, Awake, Oriented x3 - Psychiatric Exam Psychiatric exam: Normal Affect, Normal Mood - Skin Skin Exam: Dry, Warm Assessment and Plan - Assessment and Plan (Free Text) Assessment: 67 year old male with PMHx of Afib, Hep C, seizure, DVT, and hepatic carcinoma, Diabetes who was admitted for atrial fibrillation with rapid ventricular response. Plan: Atrial fibriallation with rapid ventricular response - EKG initially showed afib and tachycardia, irregular rhythm - PO cardizem - Continue home xarelto - continue home metroprolol - continue home digoxin - digoxin level 0.7 (low) - Kidney function showing dehydration which may have precipitated RVR, started on fluids - EKG shows no acute ischemic changed compared to baseline; troponins .04 twice - telemetry monitoring H/O Adenocarcinoma of the Upper GI/Pancreatobiliary Origin - Pain control - Patient does not have POLST or advanced directive - Requested palliative care consult, Allyssa Le, reyes recs - social work consulted for placement concerns Hx of IDDM2 - ACHS - ISS Regular - Carbohydrate consistent diet Hx of Seizure disorders - Continue with keppra 500 mg bid - Seizure and fall precaution Hx of CAD s/p CABG - continue with Lopressor - continue with Lipitor - Continue home ASA Hx of Peripheral neuropathy - continue with gabapentin Hx of Anxiety - continue xanax 0.5 mg daily prn Prophylactic Care DVT prophylaxis- Xarelto DISPO: Son completed paperwork for [facility]. SW faxed paper work to [facility] with hopes of transferring patient to [facility] on hospice. Case discussed with Dr. José Antonio Rowell Be PGY1 <Heather Chou - Last Filed: 09/09/17 13:28> Objective - Vital Signs/Intake and Output Vital Signs (last 24 hours): Temp Pulse Resp BP Pulse Ox 97.1 F L 60 19 126/80 95 09/09/17 12:00 09/09/17 12:00 09/09/17 12:00 09/09/17 12:00 09/09/17 06:00 Intake and Output: 09/09/17 09/09/17 06:59 18:59 Intake Total 240 Balance 240 - Medications Medications: Current Medications Alprazolam (Xanax) 0.5 mg PO BID PRN; Protocol PRN Reason: Anxiety Last Admin: 09/09/17 12:17 Dose: 0.5 mg Aspirin (Ecotrin) 81 mg PO DAILY [facility] Last Admin: 09/09/17 09:19 Dose: 81 mg Atorvastatin Calcium (Lipitor) 40 mg PO DIN [facility] Last Admin: 09/08/17 16:47 Dose: 40 mg Cephalexin Monohydrate (Keflex) 500 mg PO TID [facility] PRN Reason: Protocol Stop: 09/14/17 10:01 Last Admin: 09/09/17 09:19 Dose: 500 mg Digoxin (Digoxin) 0.125 mg PO 1400 [facility] Last Admin: 09/08/17 14:13 Dose: 0.125 mg Diltiazem HCl (Cardizem Cd) 120 mg PO DAILY [facility] Last Admin: 09/09/17 09:18 Dose: 120 mg Gabapentin (Neurontin) 300 mg PO TID [facility] PRN Reason: Protocol Last Admin: 09/09/17 09:19 Dose: 300 mg Sodium Chloride (Sodium Chloride 0.9%) 1,000 mls @ 80 mls/hr IV .[id number] [facility] Last Admin: 09/09/17 09:54 Dose: Not Given Insulin Human Regular (Humulin R Med) 0 units SC ACHS [facility] PRN Reason: Protocol Last Admin: 09/09/17 12:12 Dose: 1 units Levetiracetam (Keppra) 500 mg PO Q12 [facility] Last Admin: 09/09/17 09:19 Dose: 500 mg Metoprolol Tartrate (Lopressor) 25 mg PO BID [facility] Last Admin: 09/09/17 09:18 Dose: 25 mg Morphine Sulfate (Morphine Extended Release Tab) 30 mg PO Q12 [facility] Last Admin: 09/09/17 09:20 Dose: 30 mg Morphine Sulfate (Morphine) 1 mg IVP Q4H PRN PRN Reason: breakthrough pain Ondansetron HCl (Zofran Inj) 4 mg IVP Q6H PRN PRN Reason: Nausea/Vomiting Paroxetine HCl (Paxil) 10 mg PO HS [facility] Last Admin: 09/08/17 22:02 Dose: 10 mg Rivaroxaban (Xarelto) 15 mg PO DAILY [facility] PRN Reason: Protocol Last Admin: 09/09/17 09:18 Dose: 15 mg Thiamine HCl (Vitamin B1 Tab) 100 mg PO DAILY [facility] Last Admin: 09/09/17 09:18 Dose: 100 mg - Labs Labs: 09/09/17 06:00 09/09/17 06:00 Attending/Attestation - Attestation I have personally seen and examined this patient.: Yes I have fully participated in the care of the patient.: Yes I have reviewed all pertinent clinical information, including history, physical exam and plan: Yes Notes (Text): 09/09/17 13:26 67 year old male with past medical history of afib, hepatitis C, and GI/ pancreatobiliary adenocarcinoma who was admitted for afib with rvr. He was started on cardizem drip now switched to po. He is on digoxin and metoprolol as well. He is on xarelto. His HR has improved. He was also started on IVF for FLOYD which has also improved today. Palliative care consult was appreciated. Meeting was held yesterday between Palliative Care, pediatric social worker and son. home mission worker is currently working on discharging to [facility] hospice. Heather Chou MD Hospitalist.
[2017-09-09] MEDS: Digoxin 125 mcg (0.125 mg) Tab PO SCH (14:52)
[2017-09-10 06:48] LABS: BASO # 0.03 K/mm3 (0.0-2.0); BASO % 0.4 % (0.0-3.0); EOS # 0.2 (0.0-0.7); EOS % 2.1 % (1.5-5.0); GRAN # 5.64 (1.4-6.5); GRAN % 79.4 % (50.0-68.0); HEMOGLOBIN 12.2 g/dL (14.0-18.0); LYMPH # 0.7 (1.2-3.4); LYMPH % 10.1 % (22.0-35.0); MEAN CELL VOLUME 87.6 fl (80.0-105.0); MEAN CORPUSCULAR HEMOGLOBIN 26.6 pg (25.0-35.0); MEAN CORPUSCULAR HGB CONC 30.4 g/dl (31.0-37.0); MONO # 0.6 (0.1-0.6); RBC 4.58 10^6/uL (3.5-6.1); RED CELL DISTRIBUTION WIDTH 15.2 % (11.5-14.5); WHITE BLOOD COUNT 7.1 10^3/ul (4.5-11.0)
[2017-09-10 07:25] LABS: ALBUMIN 2.8 g/dL (3.0-4.8); ALT/SGPT 18 U/L (7-56); AST/SGOT 23 U/L (17-59); BLOOD UREA NITROGEN 31 mg/dL (7-21); CALCIUM 8.5 mg/dL (8.4-10.5); GFR AFRICAN-AMERICAN > 60; GFR NON-AFRICAN AMERICAN 55
[2017-09-10] MEDS: Insulin Reg-MEDIUM-Coverage SC SCH ×4 (08:11→21:31)
[2017-09-10] MEDS: diltiaZEM 120 mg/24 Hours CD Cap PO SCH (09:02)
[2017-09-10] MEDS: Morphine 30 mg SR Tab PO SCH ×3 (09:02→21:31)
[2017-09-10] MEDS: Sodium Chloride 0.9% 1,000 ML IV SCH (12:17)
--- NOTE | 2017-09-10 14:27 | CP.PCM.PN ---
<Sorin Lr - Last Filed: 09/10/17 14:11> Subjective - Date & Time of Evaluation Date of Evaluation: 09/10/17 Time of Evaluation: 07:50 - Subjective Subjective: PGY1 Medicine Note for Dr. Chou Patient seen and examined this morning at bedside. Patient was very lethargic yesterday after receiving his xanax. Today he is much more alert and awake. He states he is feeling well. His pain has been well controlled. Nurse reported patient vomited once after breakfast. Patient was able to take his medications after he vomited without incident. He states he is not nauseous and did not feel nauseous prior to vomiting. "I felt fine. I threw up then felt fine again. " Denies fevers, chills, diarrhea, constipation, chest pain, shortness of breath , palpitations or abdominal pain. Objective - Vital Signs/Intake and Output Vital Signs (last 24 hours): Temp Pulse Resp BP Pulse Ox 97.6 F 86 18 122/81 96 09/10/17 12:00 09/10/17 12:00 09/10/17 12:00 09/10/17 12:00 09/10/17 06:00 Intake and Output: 09/10/17 09/10/17 06:59 18:59 Intake Total 2120 Output Total 650 Balance 1470 - Medications Medications: Current Medications Alprazolam (Xanax) 0.25 mg PO BID PRN; Protocol PRN Reason: Anxiety Aspirin (Ecotrin) 81 mg PO DAILY [facility] Last Admin: 09/10/17 09:03 Dose: 81 mg Atorvastatin Calcium (Lipitor) 40 mg PO DIN [facility] Last Admin: 09/09/17 17:13 Dose: Not Given Digoxin (Digoxin) 0.125 mg PO 1400 [facility] Last Admin: 09/09/17 14:52 Dose: Not Given Diltiazem HCl (Cardizem Cd) 120 mg PO DAILY [facility] Last Admin: 09/10/17 09:02 Dose: 120 mg Gabapentin (Neurontin) 300 mg PO TID [facility] PRN Reason: Protocol Last Admin: 09/10/17 09:01 Dose: 300 mg Sodium Chloride (Sodium Chloride 0.9%) 1,000 mls @ 80 mls/hr IV .[id number] [facility] Last Admin: 09/10/17 12:17 Dose: 80 mls/hr Insulin Human Regular (Humulin R Med) 0 units SC ACHS [facility] PRN Reason: Protocol Last Admin: 09/10/17 12:13 Dose: 1 units Levetiracetam (Keppra) 500 mg PO Q12 [facility] Last Admin: 09/10/17 09:01 Dose: 500 mg Metoprolol Tartrate (Lopressor) 25 mg PO BID [facility] Morphine Sulfate (Morphine Extended Release Tab) 30 mg PO Q12 [facility] Last Admin: 09/10/17 09:02 Dose: 30 mg Morphine Sulfate (Morphine) 1 mg IVP Q4H PRN PRN Reason: breakthrough pain Ondansetron HCl (Zofran Inj) 4 mg IVP Q6H PRN PRN Reason: Nausea/Vomiting Paroxetine HCl (Paxil) 10 mg PO HS [facility] Last Admin: 09/09/17 21:16 Dose: 10 mg Rivaroxaban (Xarelto) 15 mg PO DAILY [facility] PRN Reason: Protocol Last Admin: 09/10/17 09:03 Dose: 15 mg Thiamine HCl (Vitamin B1 Tab) 100 mg PO DAILY [facility] Last Admin: 09/10/17 09:02 Dose: 100 mg - Labs Labs: 09/10/17 06:30 09/10/17 06:30 - Constitutional Appears: No Acute Distress, Chronically Ill - Head Exam Head Exam: ATRAUMATIC, NORMOCEPHALIC - Eye Exam Eye Exam: EOMI, Normal appearance, PERRL Pupil Exam: NORMAL ACCOMODATION - ENT Exam ENT Exam: Mucous Membranes Moist - Neck Exam Neck Exam: absent: Lymphadenopathy - Respiratory Exam Respiratory Exam: Clear to Ausculation Bilateral, NORMAL BREATHING PATTERN. absent: Accessory Muscle Use, Rales, Rhonchi, Wheezes, Respiratory Distress - Cardiovascular Exam Cardiovascular Exam: REGULAR RHYTHM, +S1, +S2 - GI/Abdominal Exam GI & Abdominal Exam: Soft, Normal Bowel Sounds. absent: Distended, Firm, Guarding, Rigid, Tenderness - Extremities Exam Extremities Exam: absent: Calf Tenderness, Pedal Edema - Neurological Exam Neurological Exam: Alert, Awake, CN II-XII Intact, Oriented x3 - Psychiatric Exam Psychiatric exam: Normal Affect (baseline), Normal Mood (baseline) - Skin Skin Exam: Dry, Warm Assessment and Plan - Assessment and Plan (Free Text) Assessment: 67 year old male with PMHx of Afib, Hep C, seizure, DVT, and hepatic carcinoma, Diabetes who was admitted for atrial fibrillation with rapid ventricular response. Plan: Atrial fibriallation with rapid ventricular response - EKG initially showed afib and tachycardia, irregular rhythm - PO cardizem - Continue home xarelto - continue home metroprolol - patient given an extra dose of metoprolol 25mg due to elevated HR on tele of 120's this morning. Per nursing note, patient had a 2.41 sec pause but patient was asymptomatic. Patient's HR has been much more controlled in 60-80's since with no more pauses. Will continue patient's regular metoprolol dose of 25mg PO BID. - continue home digoxin - digoxin level 0.7 (low) - Kidney function showing dehydration which may have precipitated RVR, started on fluids - EKG shows no acute ischemic changed compared to baseline; troponins .04 twice - telemetry monitoring - patient has been stable throughout day, will d/c tele and transfer patient to med-surg H/O Adenocarcinoma of the Upper GI/Pancreatobiliary Origin - Pain control - Patient does not have POLST or advanced directive - Requested palliative care consult, Allyssa Le, follow recs - social work consulted for placement concerns Hx of IDDM2 - ACHS - ISS Regular - Carbohydrate consistent diet Hx of Seizure disorders - Continue with keppra 500 mg bid - Seizure and fall precaution Hx of CAD s/p CABG - continue with Lopressor - continue with Lipitor - Continue home ASA Hx of Peripheral neuropathy - continue with gabapentin Hx of Anxiety - decreased xanax 0.5 mg BID prn to 0.25mg BID prn Prophylactic Care DVT prophylaxis- Xarelto DISPO: Son completed paperwork for [place] [facility]. SW faxed paper work to [place]. Patient medically cleared to be transferred to inpatient [place] [facility]ice. Hopeful transfer tomorrow, September 11, 2017. Case discussed with Dr. José Antonio Rowell Be PGY1 <Heather Chou - Last Filed: 09/10/17 15:27> Objective - Vital Signs/Intake and Output Vital Signs (last 24 hours): Temp Pulse Resp BP Pulse Ox 97.6 F 86 18 122/81 96 09/10/17 12:00 09/10/17 12:00 09/10/17 12:00 09/10/17 12:00 09/10/17 06:00 Intake and Output: 09/10/17 09/10/17 06:59 18:59 Intake Total 2120 180 Output Total 650 300 Balance 1470 -120 - Medications Medications: Current Medications Alprazolam (Xanax) 0.25 mg PO BID PRN; Protocol PRN Reason: Anxiety Aspirin (Ecotrin) 81 mg PO DAILY [facility] Last Admin: 09/10/17 09:03 Dose: 81 mg Atorvastatin Calcium (Lipitor) 40 mg PO DIN [facility] Last Admin: 09/09/17 17:13 Dose: Not Given Digoxin (Digoxin) 0.125 mg PO 1400 [facility] Last Admin: 09/10/17 14:46 Dose: Not Given Diltiazem HCl (Cardizem Cd) 120 mg PO DAILY [facility] Last Admin: 09/10/17 09:02 Dose: 120 mg Gabapentin (Neurontin) 300 mg PO TID [facility] PRN Reason: Protocol Last Admin: 09/10/17 14:47 Dose: Not Given Sodium Chloride (Sodium Chloride 0.9%) 1,000 mls @ 80 mls/hr IV .[id number] [facility] Last Admin: 09/10/17 12:17 Dose: 80 mls/hr Insulin Human Regular (Humulin R Med) 0 units SC ACHS [facility] PRN Reason: Protocol Last Admin: 09/10/17 12:13 Dose: 1 units Levetiracetam (Keppra) 500 mg PO Q12 [facility] Last Admin: 09/10/17 09:01 Dose: 500 mg Metoprolol Tartrate (Lopressor) 25 mg PO BID [facility] Morphine Sulfate (Morphine Extended Release Tab) 30 mg PO Q12 [facility] Last Admin: 09/10/17 09:02 Dose: 30 mg Morphine Sulfate (Morphine) 1 mg IVP Q4H PRN PRN Reason: breakthrough pain Ondansetron HCl (Zofran Inj) 4 mg IVP Q6H PRN PRN Reason: Nausea/Vomiting Paroxetine HCl (Paxil) 10 mg PO HS [facility] Last Admin: 09/09/17 21:16 Dose: 10 mg Rivaroxaban (Xarelto) 15 mg PO DAILY [facility] PRN Reason: Protocol Last Admin: 09/10/17 09:03 Dose: 15 mg Thiamine HCl (Vitamin B1 Tab) 100 mg PO DAILY [facility] Last Admin: 09/10/17 09:02 Dose: 100 mg - Labs Labs: 09/10/17 06:30 09/10/17 06:30 Attending/Attestation - Attestation I have personally seen and examined this patient.: Yes I have fully participated in the care of the patient.: Yes I have reviewed all pertinent clinical information, including history, physical exam and plan: Yes Notes (Text): 09/10/17 15:19 67 year old male with past medical history of afib, hepatitis C, and GI/ pancreatobiliary adenocarcinoma who was admitted for afib with rvr. He was started on cardizem drip now switched to po. He is currently on cardizem , digoxin and metoprolol as well. He is on xarelto. He was also started on IVF for FLOYD which has also improved. Palliative care consult was appreciated. 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 Heather Chou MD Hospitalist.
[2017-09-10] MEDS: Digoxin 125 mcg (0.125 mg) Tab PO SCH (14:46)
--- NOTE | 2017-09-10 21:44 | CP.PCM.PCO ---
<Taisha Suero - Last Filed: 09/10/17 22:32> Physician Communication Note - Physician Communication Note Physician Communication Note: Patient was unable to swallow Keppra 500 mg PO tablet. IV equivalent was Additional Comments - Additional Comments Additional Comments: ordered. Patient is on aspiration and seizure precautions. <Lukas Christie - Last Filed: 09/11/17 07:01> Attending/Attestation - Attestation I have personally seen and examined this patient.: No I have fully participated in the care of the patient.: Yes I have reviewed all pertinent clinical information: Yes
[2017-09-10] MEDS ORDERED: levETIRAcetam 500 MG in Sodium Chloride 0.9% 100 ML IV SCH (22:00)
[2017-09-10] MEDS ORDERED: levETIRAcetam 500mg IVPB 500 MG/100 ML BAG IVPB SCH (22:00)
[2017-09-11 06:46] LABS: BASO # 0.01 K/mm3 (0.0-2.0); BASO % 0.2 % (0.0-3.0); EOS # 0.1 (0.0-0.7); EOS % 2.2 % (1.5-5.0); GRAN # 4.79 (1.4-6.5); GRAN % 82.6 % (50.0-68.0); HEMOGLOBIN 11.5 g/dL (14.0-18.0); LYMPH # 0.5 (1.2-3.4); LYMPH % 8.8 % (22.0-35.0); MEAN CELL VOLUME 87.4 fl (80.0-105.0); MEAN CORPUSCULAR HEMOGLOBIN 26.4 pg (25.0-35.0); MEAN CORPUSCULAR HGB CONC 30.3 g/dl (31.0-37.0); MEAN PLATELET VOLUME 10.6 fl (7.0-11.0); MONO # 0.4 (0.1-0.6); MONO % 6.2 % (1.0-6.0); RBC 4.35 10^6/uL (3.5-6.1); RED CELL DISTRIBUTION WIDTH 15.2 % (11.5-14.5); WHITE BLOOD COUNT 5.8 10^3/ul (4.5-11.0)
[2017-09-11 07:32] LABS: ALB/GLOB RATIO 0.9 (1.1-1.8); ALBUMIN 2.7 g/dL (3.0-4.8); ALT/SGPT 22 U/L (7-56); AST/SGOT 25 U/L (17-59); BLOOD UREA NITROGEN 26 mg/dL (7-21); CALCIUM 8.5 mg/dL (8.4-10.5); GFR AFRICAN-AMERICAN > 60; GFR NON-AFRICAN AMERICAN > 60
[2017-09-11] MEDS: Insulin Reg-MEDIUM-Coverage SC SCH ×4 (07:56→22:52)
[2017-09-11] MEDS: diltiaZEM 120 mg/24 Hours CD Cap PO SCH (09:45)
[2017-09-11] MEDS: Morphine 30 mg SR Tab PO SCH ×2 (09:45→21:40)
[2017-09-11] MEDS: Digoxin 125 mcg (0.125 mg) Tab PO SCH (13:40)
--- NOTE | 2017-09-11 13:44 | CP.PCM.PN ---
<Sorin Lr - Last Filed: 09/11/17 13:40> Subjective - Date & Time of Evaluation Date of Evaluation: 09/11/17 Time of Evaluation: 07:45 - Subjective Subjective: PGY1 Medicine Note for Dr. Chou Patient seen and examined this morning at bedside. No acute events overnight. Patient is awake and alert, resting comfortably in his bed. Patient is tolerating his diet without any more incidents of vomiting. He reports he is doing well and is wondering when he will be moving over to the [place] hospice. His pain has been well controlled and currently has no complaints. Denies fevers, chills, nausea, vomiting, diarrhea, constipation, chest pain, shortness of breath, palpitations or abdominal pain. Objective - Vital Signs/Intake and Output Vital Signs (last 24 hours): Temp Pulse Resp BP Pulse Ox 97.6 F 74 21 110/62 96 09/11/17 08:19 09/11/17 09:45 09/11/17 08:19 09/11/17 09:45 09/11/17 08:19 Intake and Output: 09/11/17 09/11/17 06:59 18:59 Intake Total 120 Output Total 625 Balance -505 - Medications Medications: Current Medications Alprazolam (Xanax) 0.25 mg PO BID PRN; Protocol PRN Reason: Anxiety Aspirin (Ecotrin) 81 mg PO DAILY [facility] Last Admin: 09/11/17 09:44 Dose: 81 mg Atorvastatin Calcium (Lipitor) 40 mg PO DIN [facility] Last Admin: 09/10/17 17:26 Dose: Not Given Digoxin (Digoxin) 0.125 mg PO 1400 [facility] Last Admin: 09/10/17 14:46 Dose: Not Given Diltiazem HCl (Cardizem Cd) 120 mg PO DAILY [facility] Last Admin: 09/11/17 09:45 Dose: 120 mg Gabapentin (Neurontin) 300 mg PO TID [facility] PRN Reason: Protocol Last Admin: 09/11/17 09:43 Dose: 300 mg Sodium Chloride (Sodium Chloride 0.9%) 1,000 mls @ 80 mls/hr IV .[id number] [facility] Last Admin: 09/10/17 12:17 Dose: 80 mls/hr Insulin Human Regular (Humulin R Med) 0 units SC ACHS [facility] PRN Reason: Protocol Last Admin: 09/11/17 11:40 Dose: 1 units Levetiracetam (Keppra) 500 mg PO Q12 [facility] Last Admin: 09/11/17 09:42 Dose: 500 mg Metoprolol Tartrate (Lopressor) 25 mg PO BID [facility] Last Admin: 09/11/17 09:44 Dose: 25 mg Morphine Sulfate (Morphine Extended Release Tab) 30 mg PO Q12 [facility] Last Admin: 09/11/17 09:45 Dose: 30 mg Morphine Sulfate (Morphine) 1 mg IVP Q4H PRN PRN Reason: breakthrough pain Ondansetron HCl (Zofran Inj) 4 mg IVP Q6H PRN PRN Reason: Nausea/Vomiting Paroxetine HCl (Paxil) 10 mg PO HS [facility] Last Admin: 09/10/17 21:33 Dose: Not Given Rivaroxaban (Xarelto) 15 mg PO DAILY [facility] PRN Reason: Protocol Last Admin: 09/11/17 09:44 Dose: 15 mg Thiamine HCl (Vitamin B1 Tab) 100 mg PO DAILY [facility] Last Admin: 09/11/17 09:45 Dose: 100 mg - Labs Labs: 09/11/17 06:00 09/11/17 06:00 - Constitutional Appears: Non-toxic, No Acute Distress, Chronically Ill - Head Exam Head Exam: ATRAUMATIC, NORMOCEPHALIC - Eye Exam Eye Exam: EOMI, Normal appearance - ENT Exam ENT Exam: Mucous Membranes Moist - Respiratory Exam Respiratory Exam: Clear to Ausculation Bilateral, NORMAL BREATHING PATTERN. absent: Accessory Muscle Use, Rales, Rhonchi, Wheezes, Respiratory Distress - Cardiovascular Exam Cardiovascular Exam: REGULAR RHYTHM, +S1, +S2 - GI/Abdominal Exam GI & Abdominal Exam: Soft, Normal Bowel Sounds. absent: Distended, Firm, Guarding, Rigid, Tenderness - Extremities Exam Extremities Exam: Pedal Edema (right leg). absent: Calf Tenderness - Neurological Exam Neurological Exam: Alert, Awake, CN II-XII Intact, Oriented x3 - Psychiatric Exam Psychiatric exam: Normal Affect (baseline), Normal Mood (baseline) - Skin Skin Exam: Dry, Warm Assessment and Plan - Assessment and Plan (Free Text) Assessment: 67 year old male with PMHx of Afib, Hep C, seizure, DVT, and hepatic carcinoma, Diabetes who was admitted for atrial fibrillation with rapid ventricular response. Plan: Atrial fibriallation with rapid ventricular response - EKG initially showed afib and tachycardia, irregular rhythm - PO cardizem - Continue home xarelto - continue home metroprolol 25mg PO BID - continue home digoxin - digoxin level 0.7 (low) - Kidney function showing dehydration which may have precipitated RVR, started on fluids - EKG shows no acute ischemic changed compared to baseline; troponins .04 twice - telemetry monitoring - patient has been stable throughout day, will d/c tele and transfer patient to med-surg - Patient heart rate has been much more controlled with HR in high 60's/low 70' s today H/O Adenocarcinoma of the Upper GI/Pancreatobiliary Origin - Pain control - Patient does not have POLST or advanced directive - Requested palliative care consult, Allyssa Le, reyes recs - social work consulted for placement concerns Hx of IDDM2 - ACHS - ISS Regular - Carbohydrate consistent diet Hx of Seizure disorders - Continue with keppra 500 mg bid - Seizure and fall precaution Hx of CAD s/p CABG - continue with Lopressor - continue with Lipitor - Continue home ASA Hx of Peripheral neuropathy - continue with gabapentin Hx of Anxiety - decreased xanax 0.5 mg BID prn to 0.25mg BID prn Prophylactic Care DVT prophylaxis- Xarelto DISPO: Son completed paperwork for [place] [facility]. SW faxed paper work to [place]. Patient medically cleared to be transferred to inpatient [place] hospice. Patient currently waiting for a bed at the [place] hospice, which is currently full. Case discussed with Dr. José Antonio Rowell Be PGY1 <Heather Chou - Last Filed: 09/11/17 13:59> Objective - Vital Signs/Intake and Output Vital Signs (last 24 hours): Temp Pulse Resp BP Pulse Ox 97.6 F 74 21 110/62 96 09/11/17 08:19 09/11/17 09:45 09/11/17 08:19 09/11/17 09:45 09/11/17 08:19 Intake and Output: 09/11/17 09/11/17 06:59 18:59 Intake Total 120 Output Total 625 Balance -505 - Medications Medications: Current Medications Alprazolam (Xanax) 0.25 mg PO BID PRN; Protocol PRN Reason: Anxiety Aspirin (Ecotrin) 81 mg PO DAILY [facility] Last Admin: 09/11/17 09:44 Dose: 81 mg Atorvastatin Calcium (Lipitor) 40 mg PO DIN [facility] Last Admin: 09/10/17 17:26 Dose: Not Given Digoxin (Digoxin) 0.125 mg PO 1400 [facility] Last Admin: 09/11/17 13:40 Dose: 0.125 mg Diltiazem HCl (Cardizem Cd) 120 mg PO DAILY [facility] Last Admin: 09/11/17 09:45 Dose: 120 mg Gabapentin (Neurontin) 300 mg PO TID [facility] PRN Reason: Protocol Last Admin: 09/11/17 13:40 Dose: 300 mg Sodium Chloride (Sodium Chloride 0.9%) 1,000 mls @ 80 mls/hr IV .[id number] [facility] Last Admin: 09/10/17 12:17 Dose: 80 mls/hr Insulin Human Regular (Humulin R Med) 0 units SC ACHS [facility] PRN Reason: Protocol Last Admin: 09/11/17 11:40 Dose: 1 units Levetiracetam (Keppra) 500 mg PO Q12 [facility] Last Admin: 09/11/17 09:42 Dose: 500 mg Metoprolol Tartrate (Lopressor) 25 mg PO BID [facility] Last Admin: 09/11/17 09:44 Dose: 25 mg Morphine Sulfate (Morphine Extended Release Tab) 30 mg PO Q12 [facility] Last Admin: 09/11/17 09:45 Dose: 30 mg Morphine Sulfate (Morphine) 1 mg IVP Q4H PRN PRN Reason: breakthrough pain Ondansetron HCl (Zofran Inj) 4 mg IVP Q6H PRN PRN Reason: Nausea/Vomiting Paroxetine HCl (Paxil) 10 mg PO HS [facility] Last Admin: 09/10/17 21:33 Dose: Not Given Rivaroxaban (Xarelto) 15 mg PO DAILY [facility] PRN Reason: Protocol Last Admin: 09/11/17 09:44 Dose: 15 mg Thiamine HCl (Vitamin B1 Tab) 100 mg PO DAILY [facility] Last Admin: 09/11/17 09:45 Dose: 100 mg - Labs Labs: 09/11/17 06:00 09/11/17 06:00 Attending/Attestation - Attestation I have personally seen and examined this patient.: Yes I have fully participated in the care of the patient.: Yes I have reviewed all pertinent clinical information, including history, physical exam and plan: Yes Notes (Text): 09/11/17 13:58 67 year old male with past medical history of afib, hepatitis C, and GI/ pancreatobiliary adenocarcinoma who was admitted for afib with rvr. He was started on cardizem drip now switched to po. He is currently on cardizem, digoxin and metoprolol as well. He is on xarelto. He was also started on IVF for FLOYD which has resolved. Palliative care consult was appreciated. 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 Heather Chou MD Hospitalist.
--- NOTE | 2017-09-11 13:46 | CP.PCM.PN ---
Subjective - Date & Time of Evaluation Date of Evaluation: 09/11/17 Time of Evaluation: 12:00 - Subjective Subjective: Pleasantly confused. Offers no complaints Objective - Vital Signs/Intake and Output Vital Signs (last 24 hours): Temp Pulse Resp BP Pulse Ox 97.6 F 74 21 110/62 96 09/11/17 08:19 09/11/17 09:45 09/11/17 08:19 09/11/17 09:45 09/11/17 08:19 Intake and Output: 09/11/17 09/11/17 06:59 18:59 Intake Total 120 Output Total 625 Balance -505 - Medications Medications: Current Medications Alprazolam (Xanax) 0.25 mg PO BID PRN; Protocol PRN Reason: Anxiety Aspirin (Ecotrin) 81 mg PO DAILY [facility] Last Admin: 09/11/17 09:44 Dose: 81 mg Atorvastatin Calcium (Lipitor) 40 mg PO DIN [facility] Last Admin: 09/10/17 17:26 Dose: Not Given Digoxin (Digoxin) 0.125 mg PO 1400 [facility] Last Admin: 09/10/17 14:46 Dose: Not Given Diltiazem HCl (Cardizem Cd) 120 mg PO DAILY [facility] Last Admin: 09/11/17 09:45 Dose: 120 mg Gabapentin (Neurontin) 300 mg PO TID [facility] PRN Reason: Protocol Last Admin: 09/11/17 09:43 Dose: 300 mg Sodium Chloride (Sodium Chloride 0.9%) 1,000 mls @ 80 mls/hr IV .[id number] [facility] Last Admin: 09/10/17 12:17 Dose: 80 mls/hr Insulin Human Regular (Humulin R Med) 0 units SC ACHS [facility] PRN Reason: Protocol Last Admin: 09/11/17 11:40 Dose: 1 units Levetiracetam (Keppra) 500 mg PO Q12 [facility] Last Admin: 09/11/17 09:42 Dose: 500 mg Metoprolol Tartrate (Lopressor) 25 mg PO BID [facility] Last Admin: 09/11/17 09:44 Dose: 25 mg Morphine Sulfate (Morphine Extended Release Tab) 30 mg PO Q12 [facility] Last Admin: 09/11/17 09:45 Dose: 30 mg Morphine Sulfate (Morphine) 1 mg IVP Q4H PRN PRN Reason: breakthrough pain Ondansetron HCl (Zofran Inj) 4 mg IVP Q6H PRN PRN Reason: Nausea/Vomiting Paroxetine HCl (Paxil) 10 mg PO HS [facility] Last Admin: 09/10/17 21:33 Dose: Not Given Rivaroxaban (Xarelto) 15 mg PO DAILY [facility] PRN Reason: Protocol Last Admin: 09/11/17 09:44 Dose: 15 mg Thiamine HCl (Vitamin B1 Tab) 100 mg PO DAILY [facility] Last Admin: 09/11/17 09:45 Dose: 100 mg - Labs Labs: 09/11/17 06:00 09/11/17 06:00 - Constitutional Appears: Cachectic, Chronically Ill - Eye Exam Eye Exam: Normal appearance, PERRL - ENT Exam ENT Exam: Mucous Membranes Moist - Respiratory Exam Respiratory Exam: Decreased Breath Sounds, NORMAL BREATHING PATTERN - Cardiovascular Exam Cardiovascular Exam: REGULAR RHYTHM, +S1, +S2 - GI/Abdominal Exam GI & Abdominal Exam: Distended, Soft, Normal Bowel Sounds - Extremities Exam Extremities Exam: Normal Capillary Refill, Pedal Edema - Back Exam Back Exam: NORMAL INSPECTION - Skin Skin Exam: Dry, Warm Assessment and Plan - Assessment and Plan (Free Text) Assessment: 67 year old male with history of DM, HTN ,atrial fibrillation, pancreatic cancer who is admitted with weakness,fatigue and atrial fibrillation. The patient is alert, pleasantly confused. Denies pain. VM message left for patient's son Graeme. Resuscitation status was discussed with Graeme in past meeting.Today's call was to have Graeme complete DNR/DNI directive. Plan: Patient awaiting hospice bed [place] skilled nursing Advance care planning
[2017-09-12 06:35] LABS: BASO # 0.02 K/mm3 (0.0-2.0); BASO % 0.3 % (0.0-3.0); EOS # 0.1 (0.0-0.7); EOS % 1.7 % (1.5-5.0); GRAN # 5.27 (1.4-6.5); GRAN % 82.2 % (50.0-68.0); HEMOGLOBIN 10.9 g/dL (14.0-18.0); LYMPH # 0.5 (1.2-3.4); LYMPH % 7.2 % (22.0-35.0); MEAN CELL VOLUME 86.4 fl (80.0-105.0); MEAN CORPUSCULAR HEMOGLOBIN 26.5 pg (25.0-35.0); MEAN CORPUSCULAR HGB CONC 30.6 g/dl (31.0-37.0); MEAN PLATELET VOLUME 10.8 fl (7.0-11.0); MONO # 0.6 (0.1-0.6); MONO % 8.6 % (1.0-6.0); RBC 4.12 10^6/uL (3.5-6.1); RED CELL DISTRIBUTION WIDTH 15.1 % (11.5-14.5); WHITE BLOOD COUNT 6.4 10^3/ul (4.5-11.0)
[2017-09-12 06:54] LABS: ALB/GLOB RATIO 0.9 (1.1-1.8); ALBUMIN 2.3 g/dL (3.0-4.8); ALT/SGPT 21 U/L (7-56); AST/SGOT 21 U/L (17-59); BLOOD UREA NITROGEN 21 mg/dL (7-21); CALCIUM 8.3 mg/dL (8.4-10.5); GFR AFRICAN-AMERICAN > 60; GFR NON-AFRICAN AMERICAN > 60
[2017-09-12] MEDS: diltiaZEM 120 mg/24 Hours CD Cap PO SCH (09:32)
[2017-09-12] MEDS: Insulin Reg-MEDIUM-Coverage SC SCH ×4 (09:33→22:30)
[2017-09-12] MEDS: Morphine 30 mg SR Tab PO SCH ×2 (09:33→23:47)
[2017-09-12] MEDS ORDERED: Morphine 2 mg/2 mL syringe IVP PRN (13:54)
[2017-09-12] MEDS: Digoxin 125 mcg (0.125 mg) Tab PO SCH (14:11)
--- NOTE | 2017-09-12 15:01 | CP.PCM.PN ---
<Sorin Lr - Last Filed: 09/12/17 14:55> Subjective - Date & Time of Evaluation Date of Evaluation: 09/12/17 Time of Evaluation: 08:00 - Subjective Subjective: PGY1 Medicine Note for Dr. Chou Patient seen and examined this morning at bedside. No acute events overnight. Patient is awake and alert, resting comfortably in his bed. Patient reports that he is feeling well and that his pain has been well tolerated. He was able to sleep throughout the night. He is tolerating his diet without nausea or vomiting. He reports he is doing well and is wondering when he will be moving over to the [place] hospice. His pain has been well controlled and currently has no complaints. Denies fevers, chills, nausea, vomiting, diarrhea, constipation, chest pain, shortness of breath, palpitations or abdominal pain. Objective - Vital Signs/Intake and Output Vital Signs (last 24 hours): Temp Pulse Resp BP Pulse Ox 98.3 F 86 20 124/88 99 09/12/17 08:21 09/12/17 09:33 09/12/17 08:21 09/12/17 09:33 09/12/17 08:21 Intake and Output: 09/12/17 09/12/17 06:59 18:59 Intake Total 60 240 Output Total 150 350 Balance -90 -110 - Medications Medications: Current Medications Alprazolam (Xanax) 0.25 mg PO BID PRN; Protocol PRN Reason: Anxiety Aspirin (Ecotrin) 81 mg PO DAILY [facility] Last Admin: 09/12/17 09:32 Dose: 81 mg Atorvastatin Calcium (Lipitor) 40 mg PO DIN [facility] Last Admin: 09/11/17 17:53 Dose: 40 mg Digoxin (Digoxin) 0.125 mg PO 1400 [facility] Last Admin: 09/12/17 14:11 Dose: 0.125 mg Diltiazem HCl (Cardizem Cd) 120 mg PO DAILY [facility] Last Admin: 09/12/17 09:32 Dose: 120 mg Gabapentin (Neurontin) 300 mg PO TID [facility] PRN Reason: Protocol Last Admin: 09/12/17 14:09 Dose: 300 mg Sodium Chloride (Sodium Chloride 0.9%) 1,000 mls @ 80 mls/hr IV .[id number] [facility] Last Admin: 09/10/17 12:17 Dose: 80 mls/hr Insulin Human Regular (Humulin R Med) 0 units SC ACHS [facility] PRN Reason: Protocol Last Admin: 09/12/17 11:32 Dose: 1 units Levetiracetam (Keppra) 500 mg PO Q12 [facility] Last Admin: 09/12/17 09:32 Dose: 500 mg Metoprolol Tartrate (Lopressor) 25 mg PO BID [facility] Last Admin: 09/12/17 09:33 Dose: 25 mg Morphine Sulfate (Morphine Extended Release Tab) 30 mg PO Q12 [facility] Last Admin: 09/12/17 09:33 Dose: 30 mg Morphine Sulfate (Morphine) 1 mg IVP Q4H PRN PRN Reason: Pain, severe (8-10) -breakthru Ondansetron HCl (Zofran Inj) 4 mg IVP Q6H PRN PRN Reason: Nausea/Vomiting Paroxetine HCl (Paxil) 10 mg PO HS [facility] Last Admin: 09/11/17 21:40 Dose: 10 mg Rivaroxaban (Xarelto) 15 mg PO DAILY [facility] PRN Reason: Protocol Last Admin: 09/12/17 09:33 Dose: 15 mg Thiamine HCl (Vitamin B1 Tab) 100 mg PO DAILY [facility] Last Admin: 09/12/17 09:32 Dose: 100 mg - Labs Labs: 09/12/17 06:00 09/12/17 06:00 - Constitutional Appears: Non-toxic, No Acute Distress - Head Exam Head Exam: ATRAUMATIC, NORMOCEPHALIC - Eye Exam Eye Exam: EOMI, Normal appearance - ENT Exam ENT Exam: Mucous Membranes Moist - Neck Exam Neck Exam: absent: Lymphadenopathy - Respiratory Exam Respiratory Exam: Clear to Ausculation Bilateral, NORMAL BREATHING PATTERN. absent: Accessory Muscle Use, Rales, Rhonchi, Wheezes, Respiratory Distress - Cardiovascular Exam Cardiovascular Exam: REGULAR RHYTHM, +S1, +S2 - GI/Abdominal Exam GI & Abdominal Exam: Soft, Normal Bowel Sounds. absent: Distended, Firm, Guarding, Rigid, Tenderness - Extremities Exam Extremities Exam: Pedal Edema (Right>Left ). absent: Calf Tenderness - Neurological Exam Neurological Exam: Alert, Awake, CN II-XII Intact. absent: Oriented x3 - Psychiatric Exam Psychiatric exam: Normal Affect (baseline), Normal Mood (baseline) - Skin Skin Exam: Dry, Warm Assessment and Plan - Assessment and Plan (Free Text) Assessment: 67 year old male with PMHx of Afib, Hep C, seizure, DVT, and hepatic carcinoma, Diabetes who was admitted for atrial fibrillation with rapid ventricular response. Plan: Atrial fibriallation with rapid ventricular response - EKG initially showed afib and tachycardia, irregular rhythm - PO cardizem - Continue home xarelto - continue home metroprolol 25mg PO BID - continue home digoxin - digoxin level 0.7 (low) - Kidney function showing dehydration which may have precipitated RVR, started on fluids - EKG shows no acute ischemic changed compared to baseline; troponins .04 twice - telemetry monitoring - patient has been stable throughout day, will d/c tele and transfer patient to med-surg - Patient heart rate has been much more controlled with HR in high 60's/low 70' s today H/O Adenocarcinoma of the Upper GI/Pancreatobiliary Origin - Pain control - Patient does not have POLST or advanced directive - Requested palliative care consult, Allyssa Le, follow recs - social work consulted for placement concerns Hx of IDDM2 - ACHS - ISS Regular - Carbohydrate consistent diet Hx of Seizure disorders - Continue with keppra 500 mg bid - Seizure and fall precaution Hx of CAD s/p CABG - continue with Lopressor - continue with Lipitor - Continue home ASA Hx of Peripheral neuropathy - continue with gabapentin Hx of Anxiety - xanax 0.25mg BID prn Prophylactic Care DVT prophylaxis- Xarelto DISPO: Son completed paperwork for [place]. Patient is unable to be discharged back to his house for home hospice because he lives with his daughter who is unreliable and unable to care for patient. ISABEL faxed paper work to [place]. Patient medically cleared to be transferred to inpatient [place] hosp[place]. Patient currently waiting for a bed at the [place] hospice, which is currently full. Per ISABEL note, isabel spoke with patient's son ghazala on the phone. isabel advised that patient has been accepted at [facility] for hospice as long as income is turned over to facility. son is refusing to turn income over to facility stating [facility] Case discussed with Dr. José Antonio Lr PGY1 <Heather Chou - Last Filed: 09/12/17 15:42> Objective - Vital Signs/Intake and Output Vital Signs (last 24 hours): Temp Pulse Resp BP Pulse Ox 98.3 F 86 20 124/88 99 09/12/17 08:21 09/12/17 09:33 09/12/17 08:21 09/12/17 09:33 09/12/17 08:21 Intake and Output: 09/12/17 09/12/17 06:59 18:59 Intake Total 60 240 Output Total 150 350 Balance -90 -110 - Medications Medications: Current Medications Alprazolam (Xanax) 0.25 mg PO BID PRN; Protocol PRN Reason: Anxiety Aspirin (Ecotrin) 81 mg PO DAILY [facility] Last Admin: 09/12/17 09:32 Dose: 81 mg Atorvastatin Calcium (Lipitor) 40 mg PO DIN [facility] Last Admin: 09/11/17 17:53 Dose: 40 mg Digoxin (Digoxin) 0.125 mg PO 1400 [facility] Last Admin: 09/12/17 14:11 Dose: 0.125 mg Diltiazem HCl (Cardizem Cd) 120 mg PO DAILY [facility] Last Admin: 09/12/17 09:32 Dose: 120 mg Gabapentin (Neurontin) 300 mg PO TID [facility] PRN Reason: Protocol Last Admin: 09/12/17 14:09 Dose: 300 mg Sodium Chloride (Sodium Chloride 0.9%) 1,000 mls @ 80 mls/hr IV .[id number] [facility] Last Admin: 09/10/17 12:17 Dose: 80 mls/hr Insulin Human Regular (Humulin R Med) 0 units SC ACHS [facility] PRN Reason: Protocol Last Admin: 09/12/17 11:32 Dose: 1 units Levetiracetam (Keppra) 500 mg PO Q12 [facility] Last Admin: 09/12/17 09:32 Dose: 500 mg Metoprolol Tartrate (Lopressor) 25 mg PO BID [facility] Last Admin: 09/12/17 09:33 Dose: 25 mg Morphine Sulfate (Morphine Extended Release Tab) 30 mg PO Q12 [facility] Last Admin: 09/12/17 09:33 Dose: 30 mg Morphine Sulfate (Morphine) 1 mg IVP Q4H PRN PRN Reason: Pain, severe (8-10) -breakthru Ondansetron HCl (Zofran Inj) 4 mg IVP Q6H PRN PRN Reason: Nausea/Vomiting Paroxetine HCl (Paxil) 10 mg PO HS [facility] Last Admin: 09/11/17 21:40 Dose: 10 mg Rivaroxaban (Xarelto) 15 mg PO DAILY [facility] PRN Reason: Protocol Last Admin: 09/12/17 09:33 Dose: 15 mg Thiamine HCl (Vitamin B1 Tab) 100 mg PO DAILY [facility] Last Admin: 09/12/17 09:32 Dose: 100 mg - Labs Labs: 09/12/17 06:00 09/12/17 06:00 Attending/Attestation - Attestation I have personally seen and examined this patient.: Yes I have fully participated in the care of the patient.: Yes I have reviewed all pertinent clinical information, including history, physical exam and plan: Yes Notes (Text): 09/12/17 15:41 67 year old male with past medical history of afib, hepatitis C, and GI/ pancreatobiliary adenocarcinoma who was admitted for afib with rvr. He was started on cardizem drip now switched to po. He is currently on cardizem, digoxin and metoprolol. He is on xarelto. He was also started on IVF for FLOYD which has resolved. Palliative care consult was appreciated. Son has signed DNR/DNI form today. 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 Heatehr Chou MD Hospitalist.
[2017-09-13] MEDS: Morphine 2 mg/2 mL syringe IVP PRN ×2 (06:32→18:20)
[2017-09-13 06:42] LABS: BASO # 0.01 K/mm3 (0.0-2.0); BASO % 0.1 % (0.0-3.0); EOS % 0.5 % (1.5-5.0); GRAN # 6.68 (1.4-6.5); GRAN % 87.8 % (50.0-68.0); HEMOGLOBIN 11.6 g/dL (14.0-18.0); LYMPH # 0.4 (1.2-3.4); LYMPH % 5.7 % (22.0-35.0); MEAN CELL VOLUME 87.6 fl (80.0-105.0); MEAN CORPUSCULAR HEMOGLOBIN 26.6 pg (25.0-35.0); MEAN CORPUSCULAR HGB CONC 30.4 g/dl (31.0-37.0); MEAN PLATELET VOLUME 10.5 fl (7.0-11.0); MONO # 0.5 (0.1-0.6); MONO % 5.9 % (1.0-6.0); RBC 4.36 10^6/uL (3.5-6.1); RED CELL DISTRIBUTION WIDTH 15.4 % (11.5-14.5); WHITE BLOOD COUNT 7.6 10^3/ul (4.5-11.0)
[2017-09-13 06:51] LABS: ALB/GLOB RATIO 0.9 (1.1-1.8); ALBUMIN 2.7 g/dL (3.0-4.8); ALT/SGPT 23 U/L (7-56); AST/SGOT 21 U/L (17-59); BLOOD UREA NITROGEN 23 mg/dL (7-21); CALCIUM 8.7 mg/dL (8.4-10.5); GFR AFRICAN-AMERICAN > 60; GFR NON-AFRICAN AMERICAN > 60
[2017-09-13] MEDS: Insulin Reg-MEDIUM-Coverage SC SCH ×4 (07:48→23:12)
[2017-09-13] MEDS: diltiaZEM 120 mg/24 Hours CD Cap PO SCH (09:34)
[2017-09-13] MEDS: Morphine 30 mg SR Tab PO SCH ×2 (09:34→23:15)
--- NOTE | 2017-09-13 12:07 | CP.PCM.PN ---
<Cam Valdez - Last Filed: 09/13/17 12:10> Subjective - Date & Time of Evaluation Date of Evaluation: 09/13/17 Time of Evaluation: 07:00 - Subjective Subjective: Patient seen and examined bedside. NO acute issues. Patient says he is doing well and has no complaints at this time. Denies chest pain, SOB, abdominal pain , or any other complaints. Objective - Vital Signs/Intake and Output Vital Signs (last 24 hours): Temp Pulse Resp BP Pulse Ox 97.7 F 91 H 20 125/72 94 L 09/13/17 06:00 09/13/17 06:00 09/13/17 06:00 09/13/17 06:00 09/13/17 06:00 Intake and Output: 09/13/17 09/13/17 06:59 18:59 Intake Total 1080 Output Total 225 Balance 855 - Medications Medications: Current Medications Alprazolam (Xanax) 0.25 mg PO BID PRN; Protocol PRN Reason: Anxiety Aspirin (Ecotrin) 81 mg PO DAILY [facility] Last Admin: 09/13/17 09:34 Dose: 81 mg Atorvastatin Calcium (Lipitor) 40 mg PO DIN [facility] Last Admin: 09/12/17 17:54 Dose: Not Given Digoxin (Digoxin) 0.125 mg PO 1400 [facility] Last Admin: 09/12/17 14:11 Dose: 0.125 mg Diltiazem HCl (Cardizem Cd) 120 mg PO DAILY [facility] Last Admin: 09/13/17 09:34 Dose: 120 mg Gabapentin (Neurontin) 300 mg PO TID [facility] PRN Reason: Protocol Last Admin: 09/13/17 09:34 Dose: 300 mg Sodium Chloride (Sodium Chloride 0.9%) 1,000 mls @ 80 mls/hr IV .[id number] [facility] Last Admin: 09/10/17 12:17 Dose: 80 mls/hr Insulin Human Regular (Humulin R Med) 0 units SC ACHS [facility] PRN Reason: Protocol Last Admin: 09/13/17 11:45 Dose: Not Given Levetiracetam (Keppra) 500 mg PO Q12 [facility] Last Admin: 09/13/17 09:34 Dose: 500 mg Metoprolol Tartrate (Lopressor) 25 mg PO BID [facility] Last Admin: 09/13/17 09:34 Dose: 25 mg Morphine Sulfate (Morphine Extended Release Tab) 30 mg PO Q12 [facility] Last Admin: 09/13/17 09:34 Dose: 30 mg Morphine Sulfate (Morphine) 1 mg IVP Q4H PRN PRN Reason: Pain, severe (8-10) -breakthru Last Admin: 09/13/17 06:32 Dose: 1 mg Ondansetron HCl (Zofran Inj) 4 mg IVP Q6H PRN PRN Reason: Nausea/Vomiting Paroxetine HCl (Paxil) 10 mg PO HS [facility] Last Admin: 09/12/17 23:47 Dose: Not Given Rivaroxaban (Xarelto) 15 mg PO DAILY [facility] PRN Reason: Protocol Last Admin: 09/13/17 09:34 Dose: 15 mg Thiamine HCl (Vitamin B1 Tab) 100 mg PO DAILY [facility] Last Admin: 09/13/17 09:34 Dose: 100 mg - Labs Labs: 09/13/17 06:00 09/13/17 06:00 - Constitutional Appears: Non-toxic, No Acute Distress - Head Exam Head Exam: ATRAUMATIC, NORMAL INSPECTION, NORMOCEPHALIC - Eye Exam Eye Exam: EOMI, Normal appearance - ENT Exam ENT Exam: Mucous Membranes Moist - Respiratory Exam Respiratory Exam: Clear to Ausculation Bilateral, NORMAL BREATHING PATTERN - Cardiovascular Exam Cardiovascular Exam: Irregular Rhythm, +S1, +S2 - Extremities Exam Extremities Exam: Pedal Edema - Neurological Exam Neurological Exam: Alert, Awake. absent: Oriented x3 Assessment and Plan - Assessment and Plan (Free Text) Assessment: 67 year old male with PMHx of Afib, Hep C, seizure, DVT, and hepatic carcinoma, Diabetes who was admitted for atrial fibrillation with rapid ventricular response. Plan: Atrial fibriallation with rapid ventricular response - EKG initially showed afib and tachycardia, irregular rhythm - PO cardizem - Continue home xarelto - continue home metroprolol 25mg PO BID - continue home digoxin - digoxin level 0.7 (low) - Kidney function showed dehydration which may have precipitated RVR, was given fluids H/O Adenocarcinoma of the Upper GI/Pancreatobiliary Origin - Pain control - Patient does not have POLST or advanced directive - Requested palliative care consult, Allyssa Le, follow recs - social work consulted for placement concerns Hx of IDDM2 - ACHS - ISS Regular - Carbohydrate consistent diet Hx of Seizure disorders - Continue with keppra 500 mg bid - Seizure and fall precaution Hx of CAD s/p CABG - continue with Lopressor - continue with Lipitor - Continue home ASA Hx of Peripheral neuropathy - continue with gabapentin Hx of Anxiety - xanax 0.25mg BID prn Prophylactic Care DVT prophylaxis- Xarelto DISPO: Son completed paperwork for [place] alf/hospice. Patient is unable to be discharged back to his house for home hospice because he lives with his daughter who is unreliable and unable to care for patient. ISABEL faxed paper work to [place]. Patient medically cleared to be transferred to inpatient [place] hospice. Patient currently waiting for a bed at the [place] hospice, which is currently full. Per ISABEL note, isabel spoke with patient's son ghazala on the phone. isabel advised that patient has been accepted at [facility] for hospice as long as income is turned over to facility. son is refusing to turn income over to facility stating he wants to wait for a bed at the [place] facility. <Heather Chou - Last Filed: 09/13/17 12:14> Objective - Vital Signs/Intake and Output Vital Signs (last 24 hours): Temp Pulse Resp BP Pulse Ox 97.7 F 91 H 20 125/72 94 L 09/13/17 06:00 09/13/17 06:00 09/13/17 06:00 09/13/17 06:00 09/13/17 06:00 Intake and Output: 09/13/17 09/13/17 06:59 18:59 Intake Total 1080 Output Total 225 Balance 855 - Medications Medications: Current Medications Alprazolam (Xanax) 0.25 mg PO BID PRN; Protocol PRN Reason: Anxiety Aspirin (Ecotrin) 81 mg PO DAILY [facility] Last Admin: 09/13/17 09:34 Dose: 81 mg Atorvastatin Calcium (Lipitor) 40 mg PO DIN [facility] Last Admin: 09/12/17 17:54 Dose: Not Given Digoxin (Digoxin) 0.125 mg PO 1400 [facility] Last Admin: 09/12/17 14:11 Dose: 0.125 mg Diltiazem HCl (Cardizem Cd) 120 mg PO DAILY [facility] Last Admin: 09/13/17 09:34 Dose: 120 mg Gabapentin (Neurontin) 300 mg PO TID [facility] PRN Reason: Protocol Last Admin: 09/13/17 09:34 Dose: 300 mg Sodium Chloride (Sodium Chloride 0.9%) 1,000 mls @ 80 mls/hr IV .[id number] [facility] Last Admin: 09/10/17 12:17 Dose: 80 mls/hr Insulin Human Regular (Humulin R Med) 0 units SC ACHS [facility] PRN Reason: Protocol Last Admin: 09/13/17 11:45 Dose: Not Given Levetiracetam (Keppra) 500 mg PO Q12 [facility] Last Admin: 09/13/17 09:34 Dose: 500 mg Metoprolol Tartrate (Lopressor) 25 mg PO BID [facility] Last Admin: 09/13/17 09:34 Dose: 25 mg Morphine Sulfate (Morphine Extended Release Tab) 30 mg PO Q12 [facility] Last Admin: 09/13/17 09:34 Dose: 30 mg Morphine Sulfate (Morphine) 1 mg IVP Q4H PRN PRN Reason: Pain, severe (8-10) -breakthru Last Admin: 09/13/17 06:32 Dose: 1 mg Ondansetron HCl (Zofran Inj) 4 mg IVP Q6H PRN PRN Reason: Nausea/Vomiting Paroxetine HCl (Paxil) 10 mg PO HS [facility] Last Admin: 09/12/17 23:47 Dose: Not Given Rivaroxaban (Xarelto) 15 mg PO DAILY [facility] PRN Reason: Protocol Last Admin: 09/13/17 09:34 Dose: 15 mg Thiamine HCl (Vitamin B1 Tab) 100 mg PO DAILY [facility] Last Admin: 09/13/17 09:34 Dose: 100 mg - Labs Labs: 09/13/17 06:00 09/13/17 06:00 Attending/Attestation - Attestation I have personally seen and examined this patient.: Yes I have fully participated in the care of the patient.: Yes I have reviewed all pertinent clinical information, including history, physical exam and plan: Yes Notes (Text): 09/13/17 12:13 67 year old male with past medical history of afib, hepatitis C, and GI/ pancreatobiliary adenocarcinoma who was admitted for afib with rvr. He was started on cardizem drip now switched to po. He is currently on cardizem, digoxin and metoprolol. He is on xarelto. He was also started on IVF for FLOYD which has resolved. Palliative care consult was appreciated. Patient is DNR/DNI. 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 Heather Chou MD Hospitalist.
[2017-09-13] MEDS: Digoxin 125 mcg (0.125 mg) Tab PO SCH (14:08)
[2017-09-14 07:15] LABS: BASO # 0.02 K/mm3 (0.0-2.0); BASO % 0.3 % (0.0-3.0); EOS # 0.1 (0.0-0.7); EOS % 1.8 % (1.5-5.0); GRAN # 5.96 (1.4-6.5); GRAN % 83.8 % (50.0-68.0); HEMOGLOBIN 11.1 g/dL (14.0-18.0); LYMPH # 0.6 (1.2-3.4); LYMPH % 8.1 % (22.0-35.0); MEAN CORPUSCULAR HEMOGLOBIN 26.2 pg (25.0-35.0); MEAN CORPUSCULAR HGB CONC 30.2 g/dl (31.0-37.0); MEAN PLATELET VOLUME 10.6 fl (7.0-11.0); MONO # 0.4 (0.1-0.6); RBC 4.23 10^6/uL (3.5-6.1); RED CELL DISTRIBUTION WIDTH 15.6 % (11.5-14.5); WHITE BLOOD COUNT 7.1 10^3/ul (4.5-11.0)
[2017-09-14 07:26] LABS: ALB/GLOB RATIO 0.9 (1.1-1.8); ALBUMIN 2.4 g/dL (3.0-4.8); ALT/SGPT 26 U/L (7-56); AST/SGOT 23 U/L (17-59); BLOOD UREA NITROGEN 20 mg/dL (7-21); CALCIUM 8.5 mg/dL (8.4-10.5); GFR AFRICAN-AMERICAN > 60; GFR NON-AFRICAN AMERICAN > 60
[2017-09-14] MEDS: Insulin Reg-MEDIUM-Coverage SC SCH ×4 (08:08→22:05)
[2017-09-14] MEDS ORDERED: Sodium Chloride 0.9% 1,000 ML IV SCH (10:06)
--- NOTE | 2017-09-14 10:09 | CP.PCM.PN ---
<Cam Valdez - Last Filed: 09/14/17 10:07> Subjective - Date & Time of Evaluation Date of Evaluation: 09/14/17 Time of Evaluation: 10:07 - Subjective Subjective: Patient seen and evaluated bedside. No acute issues overnight. patient says he feels okay and not hungry. Denies chest pain, SOB, abdominal pain or any other complaints at this time. Objective - Vital Signs/Intake and Output Vital Signs (last 24 hours): Temp Pulse Resp BP Pulse Ox 97.4 F L 92 H 17 139/95 H 99 09/14/17 06:00 09/14/17 06:00 09/14/17 06:00 09/14/17 06:00 09/14/17 06:00 Intake and Output: 09/14/17 09/14/17 06:59 18:59 Intake Total 240 Output Total 400 Balance -160 - Medications Medications: Current Medications Alprazolam (Xanax) 0.25 mg PO BID PRN; Protocol PRN Reason: Anxiety Aspirin (Ecotrin) 81 mg PO DAILY [facility] Last Admin: 09/13/17 09:34 Dose: 81 mg Atorvastatin Calcium (Lipitor) 40 mg PO DIN [facility] Last Admin: 09/13/17 17:39 Dose: 40 mg Digoxin (Digoxin) 0.125 mg PO 1400 [facility] Last Admin: 09/13/17 14:08 Dose: 0.125 mg Diltiazem HCl (Cardizem Cd) 120 mg PO DAILY [facility] Last Admin: 09/13/17 09:34 Dose: 120 mg Gabapentin (Neurontin) 300 mg PO TID [facility] PRN Reason: Protocol Last Admin: 09/13/17 17:39 Dose: 300 mg Sodium Chloride (Sodium Chloride 0.9%) 1,000 mls @ 40 mls/hr IV .Q24H [facility] Insulin Human Regular (Humulin R Med) 0 units SC ACHS [facility] PRN Reason: Protocol Last Admin: 09/14/17 08:08 Dose: 2 units Levetiracetam (Keppra) 500 mg PO Q12 [facility] Last Admin: 09/13/17 23:14 Dose: 500 mg Metoprolol Tartrate (Lopressor) 25 mg PO BID [facility] Last Admin: 09/13/17 17:39 Dose: 25 mg Morphine Sulfate (Morphine Extended Release Tab) 30 mg PO Q12 [facility] Last Admin: 09/13/17 23:15 Dose: 30 mg Morphine Sulfate (Morphine) 1 mg IVP Q4H PRN PRN Reason: Pain, severe (8-10) -breakthru Last Admin: 09/13/17 18:20 Dose: 1 mg Ondansetron HCl (Zofran Inj) 4 mg IVP Q6H PRN PRN Reason: Nausea/Vomiting Paroxetine HCl (Paxil) 10 mg PO HS [facility] Last Admin: 09/13/17 23:14 Dose: 10 mg Rivaroxaban (Xarelto) 15 mg PO DAILY [facility] PRN Reason: Protocol Last Admin: 09/13/17 09:34 Dose: 15 mg Thiamine HCl (Vitamin B1 Tab) 100 mg PO DAILY [facility] Last Admin: 09/13/17 09:34 Dose: 100 mg - Labs Labs: 09/14/17 06:30 09/14/17 06:30 - Constitutional Appears: Non-toxic, No Acute Distress, Older Than Stated Age - Head Exam Head Exam: ATRAUMATIC, NORMAL INSPECTION, NORMOCEPHALIC - Eye Exam Eye Exam: Normal appearance - ENT Exam ENT Exam: Mucous Membranes Moist - Respiratory Exam Respiratory Exam: Clear to Ausculation Bilateral, NORMAL BREATHING PATTERN - Cardiovascular Exam Cardiovascular Exam: Irregular Rhythm - GI/Abdominal Exam GI & Abdominal Exam: Soft. absent: Tenderness - Neurological Exam Neurological Exam: Alert, Awake. absent: Oriented x3 Assessment and Plan - Assessment and Plan (Free Text) Assessment: 67 year old male with PMHx of Afib, Hep C, seizure, DVT, and hepatic carcinoma, Diabetes who was admitted for atrial fibrillation with rapid ventricular response. Plan: Atrial fibriallation with rapid ventricular response - EKG initially showed afib and tachycardia, irregular rhythm - PO cardizem - Continue home xarelto - continue home metroprolol 25mg PO BID - continue home digoxin - digoxin level 0.7 (low) - Kidney function showed dehydration which may have precipitated RVR, was given fluids - NS@40 H/O Adenocarcinoma of the Upper GI/Pancreatobiliary Origin - Pain control - Patient does not have POLST or advanced directive - Requested palliative care consult, Allyssa Le, follow recs - social work consulted for placement concerns Hx of IDDM2 - ACHS - ISS Regular - Carbohydrate consistent diet Hx of Seizure disorders - Continue with keppra 500 mg bid - Seizure and fall precaution Hx of CAD s/p CABG - continue with Lopressor - continue with Lipitor - Continue home ASA Hx of Peripheral neuropathy - continue with gabapentin Hx of Anxiety - xanax 0.25mg BID prn Prophylactic Care DVT prophylaxis- Xarelto DISPO: Son completed paperwork for [place] care [facility]/hospice. Patient is unable to be discharged back to his house for home hospice because he lives with his daughter who is unreliable and unable to care for patient. ISABEL faxed paper work to [place]. Patient medically cleared to be transferred to inpatient [place] [facility]ice. Patient currently waiting for a bed at the [place] hospice, which is currently full. Per ISABEL note, isabel spoke with patient's son ghazala on the phone. isabel advised that patient has been accepted at [facility] for hospice as long as income is turned over to facility. son is refusing to turn income over to facility stating he wants to wait for a bed at the [place] facility. <Heather Chou - Last Filed: 09/14/17 10:19> Objective - Vital Signs/Intake and Output Vital Signs (last 24 hours): Temp Pulse Resp BP Pulse Ox 97.4 F L 92 H 17 139/95 H 99 09/14/17 06:00 09/14/17 06:00 09/14/17 06:00 09/14/17 06:00 09/14/17 06:00 Intake and Output: 09/14/17 09/14/17 06:59 18:59 Intake Total 240 Output Total 400 Balance -160 - Medications Medications: Current Medications Alprazolam (Xanax) 0.25 mg PO BID PRN; Protocol PRN Reason: Anxiety Aspirin (Ecotrin) 81 mg PO DAILY [facility] Last Admin: 09/13/17 09:34 Dose: 81 mg Atorvastatin Calcium (Lipitor) 40 mg PO DIN [facility] Last Admin: 09/13/17 17:39 Dose: 40 mg Digoxin (Digoxin) 0.125 mg PO 1400 [facility] Last Admin: 09/13/17 14:08 Dose: 0.125 mg Diltiazem HCl (Cardizem Cd) 120 mg PO DAILY [facility] Last Admin: 09/13/17 09:34 Dose: 120 mg Gabapentin (Neurontin) 300 mg PO TID [facility] PRN Reason: Protocol Last Admin: 09/13/17 17:39 Dose: 300 mg Sodium Chloride (Sodium Chloride 0.9%) 1,000 mls @ 40 mls/hr IV .Q24H [facility] Insulin Human Regular (Humulin R Med) 0 units SC ACHS [facility] PRN Reason: Protocol Last Admin: 09/14/17 08:08 Dose: 2 units Levetiracetam (Keppra) 500 mg PO Q12 [facility] Last Admin: 09/13/17 23:14 Dose: 500 mg Metoprolol Tartrate (Lopressor) 25 mg PO BID [facility] Last Admin: 09/13/17 17:39 Dose: 25 mg Morphine Sulfate (Morphine Extended Release Tab) 30 mg PO Q12 [facility] Last Admin: 09/13/17 23:15 Dose: 30 mg Morphine Sulfate (Morphine) 1 mg IVP Q4H PRN PRN Reason: Pain, severe (8-10) -breakthru Last Admin: 09/13/17 18:20 Dose: 1 mg Ondansetron HCl (Zofran Inj) 4 mg IVP Q6H PRN PRN Reason: Nausea/Vomiting Paroxetine HCl (Paxil) 10 mg PO HS [facility] Last Admin: 09/13/17 23:14 Dose: 10 mg Rivaroxaban (Xarelto) 15 mg PO DAILY [facility] PRN Reason: Protocol Last Admin: 09/13/17 09:34 Dose: 15 mg Thiamine HCl (Vitamin B1 Tab) 100 mg PO DAILY [facility] Last Admin: 09/13/17 09:34 Dose: 100 mg - Labs Labs: 09/14/17 06:30 09/14/17 06:30 Attending/Attestation - Attestation I have personally seen and examined this patient.: Yes I have fully participated in the care of the patient.: Yes I have reviewed all pertinent clinical information, including history, physical exam and plan: Yes Notes (Text): 09/14/17 10:18 67 year old male with past medical history of afib, hepatitis C, and GI/ pancreatobiliary adenocarcinoma who was admitted for afib with rvr. He was started on cardizem drip now switched to po once his heart rate improved. He is currently on cardizem, digoxin and metoprolol. He is on xarelto. He was also started on IVF for FLOYD which has resolved. Can decrease or discontinue fluids if patient is eating. Palliative care consult was appreciated. Patient is DNR/DNI. 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 Heather Chou MD Hospitalist.
[2017-09-14] MEDS: Morphine 2 mg/2 mL syringe IVP PRN (10:21)
[2017-09-14] MEDS: diltiaZEM 120 mg/24 Hours CD Cap PO SCH (10:21)
[2017-09-14] MEDS: Morphine 30 mg SR Tab PO SCH ×2 (10:21→21:35)
[2017-09-14] MEDS: Digoxin 125 mcg (0.125 mg) Tab PO SCH (13:11)
[2017-09-15] MEDS: Insulin Reg-MEDIUM-Coverage SC SCH ×4 (07:30→21:39)
[2017-09-15 07:33] LABS: ALBUMIN 2.6 g/dL (3.0-4.8); ALT/SGPT 24 U/L (7-56); AST/SGOT 25 U/L (17-59); BASO # 0.02 K/mm3 (0.0-2.0); BASO % 0.2 % (0.0-3.0); BLOOD UREA NITROGEN 18 mg/dL (7-21); CALCIUM 8.8 mg/dL (8.4-10.5); EOS % 0.5 % (1.5-5.0); GFR AFRICAN-AMERICAN > 60; GFR NON-AFRICAN AMERICAN > 60; GRAN # 7.44 (1.4-6.5); GRAN % 87.1 % (50.0-68.0); HEMOGLOBIN 11.7 g/dL (14.0-18.0); LYMPH # 0.5 (1.2-3.4); LYMPH % 5.7 % (22.0-35.0); MEAN CELL VOLUME 86.3 fl (80.0-105.0); MEAN CORPUSCULAR HEMOGLOBIN 26.3 pg (25.0-35.0); MEAN CORPUSCULAR HGB CONC 30.5 g/dl (31.0-37.0); MEAN PLATELET VOLUME 10.6 fl (7.0-11.0); MONO # 0.6 (0.1-0.6); MONO % 6.5 % (1.0-6.0); RBC 4.45 10^6/uL (3.5-6.1); RED CELL DISTRIBUTION WIDTH 15.6 % (11.5-14.5); WHITE BLOOD COUNT 8.6 10^3/ul (4.5-11.0)
[2017-09-15] MEDS ORDERED: Morphine 4 mg/ml ISec IVP PRN (07:55)
--- NOTE | 2017-09-15 10:15 | CP.PCM.PN ---
<Sorin Lr - Last Filed: 09/15/17 10:12> Subjective - Date & Time of Evaluation Date of Evaluation: 09/15/17 Time of Evaluation: 10:12 - Subjective Subjective: PGY1 Medicine Note for Dr. Tim Patient seen and examined this morning at bedside. No acute events overnight. Patient is awake and alert, but continually asking when he is going to be leaving. He states he wants to go home and does not want to be in the hospital anymore. Denies fevers, chills, nausea, vomiting, diarrhea, constipation, chest pain, shortness of breath, palpitations or abdominal pain. Objective - Vital Signs/Intake and Output Vital Signs (last 24 hours): Temp Pulse Resp BP Pulse Ox 97.7 F 65 20 136/79 95 09/15/17 06:00 09/15/17 06:00 09/15/17 06:00 09/15/17 06:00 09/15/17 06:00 Intake and Output: 09/15/17 09/15/17 06:59 18:59 Intake Total 600 Output Total 400 Balance 200 - Medications Medications: Current Medications Alprazolam (Xanax) 0.25 mg PO BID PRN; Protocol PRN Reason: Anxiety Last Admin: 09/14/17 21:39 Dose: 0.25 mg Aspirin (Ecotrin) 81 mg PO DAILY [facility] Last Admin: 09/14/17 10:21 Dose: 81 mg Atorvastatin Calcium (Lipitor) 40 mg PO DIN [facility] Last Admin: 09/14/17 17:37 Dose: Not Given Digoxin (Digoxin) 0.125 mg PO 1400 [facility] Last Admin: 09/14/17 13:11 Dose: Not Given Diltiazem HCl (Cardizem Cd) 120 mg PO DAILY [facility] Last Admin: 09/14/17 10:21 Dose: 120 mg Gabapentin (Neurontin) 300 mg PO TID [facility] PRN Reason: Protocol Last Admin: 09/14/17 17:38 Dose: Not Given Sodium Chloride (Sodium Chloride 0.9%) 1,000 mls @ 40 mls/hr IV .Q24H [facility] Insulin Human Regular (Humulin R Med) 0 units SC ACHS [facility] PRN Reason: Protocol Last Admin: 09/14/17 22:05 Dose: Not Given Levetiracetam (Keppra) 500 mg PO Q12 [facility] Last Admin: 09/14/17 21:35 Dose: 500 mg Metoprolol Tartrate (Lopressor) 25 mg PO BID [facility] Last Admin: 09/14/17 17:38 Dose: Not Given Morphine Sulfate (Morphine Extended Release Tab) 30 mg PO Q12 [facility] Last Admin: 09/14/17 21:35 Dose: 30 mg Morphine Sulfate (Morphine) 1 mg IVP Q4H PRN PRN Reason: Pain, severe (8-10) -breakthru Ondansetron HCl (Zofran Inj) 4 mg IVP Q6H PRN PRN Reason: Nausea/Vomiting Paroxetine HCl (Paxil) 10 mg PO HS [facility] Last Admin: 09/14/17 21:36 Dose: 10 mg Rivaroxaban (Xarelto) 15 mg PO DAILY [facility] PRN Reason: Protocol Last Admin: 09/14/17 10:21 Dose: 15 mg Thiamine HCl (Vitamin B1 Tab) 100 mg PO DAILY [facility] Last Admin: 09/14/17 10:21 Dose: 100 mg - Labs Labs: 09/15/17 06:00 09/15/17 06:00 - Constitutional Appears: No Acute Distress, Chronically Ill - Head Exam Head Exam: ATRAUMATIC, NORMOCEPHALIC - Eye Exam Eye Exam: Normal appearance - ENT Exam ENT Exam: Mucous Membranes Moist - Neck Exam Neck Exam: absent: Lymphadenopathy - Respiratory Exam Respiratory Exam: Clear to Ausculation Bilateral, NORMAL BREATHING PATTERN. absent: Accessory Muscle Use, Rhonchi, Wheezes, Respiratory Distress - Cardiovascular Exam Cardiovascular Exam: Irregular Rhythm - GI/Abdominal Exam GI & Abdominal Exam: Soft. absent: Distended, Firm, Guarding, Rigid, Tenderness - Extremities Exam Extremities Exam: Pedal Edema (R>L). absent: Calf Tenderness, Full ROM - Neurological Exam Neurological Exam: Alert, Awake. absent: Oriented x3 - Skin Skin Exam: Dry, Warm Assessment and Plan - Assessment and Plan (Free Text) Assessment: 67 year old male with PMHx of Afib, Hep C, seizure, DVT, and hepatic carcinoma, Diabetes who was admitted for atrial fibrillation with rapid ventricular response. Plan: Atrial fibriallation with rapid ventricular response - EKG initially showed afib and tachycardia, irregular rhythm - Cardizem 120mg PO daily - Continue home xarelto 15mg PO daily - continue home metroprolol 25mg PO BID - continue home digoxin 0.125mg PO daily - digoxin level 0.7 (low) - Kidney function showed dehydration which may have precipitated RVR, was given fluids - NS@40 H/O Adenocarcinoma of the Upper GI/Pancreatobiliary Origin - Pain control * Morphine ER 30mg PO q12h * Morphine 1mg IVP q4h - Patient does not have POLST or advanced directive - Requested palliative care consult, Allyssa Le, reyes recs - social work consulted for placement concerns Hx of IDDM2 - ACHS - ISS Regular - Carbohydrate consistent diet Hx of Seizure disorders - Continue with keppra 500 mg bid - Seizure and fall precaution Hx of CAD s/p CABG - continue with Lopressor 25mg PO daily - continue with Lipitor 40 mg PO daily - Continue home ASA 81mg PO daily Hx of Peripheral neuropathy - continue with gabapentin 300mg PO TID Hx of Anxiety - xanax 0.25mg BID prn - Paroxetine 10mg PO HS Prophylactic Care DVT prophylaxis- Xarelto 15mg PO daily DISPO: Son completed paperwork for [place] [facility]. Patient is unable to be discharged back to his house for home hospice because he lives with his daughter who is unreliable and unable to care for patient. SW faxed paper work to [place]. Patient medically cleared to be transferred to inpatient [place] hospice. Patient currently waiting for a bed at the [place] hospice, which is currently full. Per ISABEL note, isabel spoke with patient's son ghazala on the phone. isabel advised that patient has been accepted at [facility] for hospice as long as income is turned over to facility. son is refusing to turn income over to facility stating [facility] No update at this time. Case discussed with Dr. Meeta Rowell Be PGY1 <Germain Tim - Last Filed: 09/15/17 13:40> Objective - Vital Signs/Intake and Output Vital Signs (last 24 hours): Temp Pulse Resp BP Pulse Ox 97.7 F 65 20 136/79 95 09/15/17 06:00 09/15/17 10:28 09/15/17 06:00 09/15/17 10:28 09/15/17 06:00 Intake and Output: 09/15/17 09/15/17 06:59 18:59 Intake Total 600 Output Total 400 Balance 200 - Medications Medications: Current Medications Alprazolam (Xanax) 0.25 mg PO BID PRN; Protocol PRN Reason: Anxiety Last Admin: 09/14/17 21:39 Dose: 0.25 mg Aspirin (Ecotrin) 81 mg PO DAILY [facility] Last Admin: 09/15/17 10:28 Dose: 81 mg Atorvastatin Calcium (Lipitor) 40 mg PO DIN [facility] Last Admin: 09/14/17 17:37 Dose: Not Given Digoxin (Digoxin) 0.125 mg PO 1400 [facility] Last Admin: 09/14/17 13:11 Dose: Not Given Diltiazem HCl (Cardizem Cd) 120 mg PO DAILY [facility] Last Admin: 09/15/17 10:28 Dose: 120 mg Gabapentin (Neurontin) 300 mg PO TID [facility] PRN Reason: Protocol Last Admin: 09/15/17 10:27 Dose: 300 mg Sodium Chloride (Sodium Chloride 0.9%) 1,000 mls @ 40 mls/hr IV .Q24H [facility] Insulin Human Regular (Humulin R Med) 0 units SC ACHS [facility] PRN Reason: Protocol Last Admin: 09/15/17 07:30 Dose: Not Given Levetiracetam (Keppra) 500 mg PO Q12 [facility] Last Admin: 09/15/17 10:28 Dose: 500 mg Metoprolol Tartrate (Lopressor) 25 mg PO BID [facility] Last Admin: 09/15/17 10:28 Dose: 25 mg Morphine Sulfate (Morphine Extended Release Tab) 30 mg PO Q12 [facility] Last Admin: 09/15/17 10:27 Dose: 30 mg Morphine Sulfate (Morphine) 1 mg IVP Q4H PRN PRN Reason: Pain, severe (8-10) -breakthru Ondansetron HCl (Zofran Inj) 4 mg IVP Q6H PRN PRN Reason: Nausea/Vomiting Paroxetine HCl (Paxil) 10 mg PO HS [facility] Last Admin: 09/14/17 21:36 Dose: 10 mg Rivaroxaban (Xarelto) 15 mg PO DAILY [facility] PRN Reason: Protocol Last Admin: 09/15/17 10:27 Dose: 15 mg Thiamine HCl (Vitamin B1 Tab) 100 mg PO DAILY [facility] Last Admin: 09/15/17 10:27 Dose: 100 mg - Labs Labs: 09/15/17 06:00 09/15/17 06:00 Attending/Attestation - Attestation I have personally seen and examined this patient.: Yes I have fully participated in the care of the patient.: Yes I have reviewed all pertinent clinical information, including history, physical exam and plan: Yes Notes (Text): 09/15/17 13:37 Attending note; Patient seen and examined with resident. Patient is a 67 year old male with past medical history of afib, hepatitis C, and GI/pancreatobiliary adenocarcinoma who was admitted for afib with RVR. He was initially treated with IV cardizem drip now switched to po since his heart rate improved. He is currently on cardizem, digoxin and metoprolol. He is on xarelto. Acute kidney injury resolved. Palliative care consult was appreciated. Patient is DNR/DNI. wet room worker is currently working on discharging to [place] hospice. Awaiting bed availability.
[2017-09-15] MEDS: Morphine 30 mg SR Tab PO SCH ×2 (10:27→22:17)
[2017-09-15] MEDS: diltiaZEM 120 mg/24 Hours CD Cap PO SCH (10:28)
[2017-09-15] MEDS: Digoxin 125 mcg (0.125 mg) Tab PO SCH (14:55)
[2017-09-15 14:56] VITALS: PULSE 75
[2017-09-15] MEDS ORDERED: levETIRAcetam 500mg IVPB 500 MG/100 ML BAG IVPB STA (22:15)
[2017-09-16] MEDS: Insulin Reg-MEDIUM-Coverage SC SCH ×4 (08:31→22:53)
[2017-09-16] MEDS ORDERED: Morphine 4 mg/ml ISec IVP PRN (09:23)
[2017-09-16] MEDS: levETIRAcetam 500mg IVPB 500 MG/100 ML BAG IV SCH ×2 (10:00→22:52)
[2017-09-16] MEDS: diltiaZEM 120 mg/24 Hours CD Cap PO SCH (10:00)
[2017-09-16] MEDS ORDERED: Tuberculin 5 Units/0.1 ml Inj ID ONE (11:42)
--- NOTE | 2017-09-16 13:34 | CP.PCM.PN ---
Subjective - Date & Time of Evaluation Date of Evaluation: 09/16/17 Time of Evaluation: 10:00 - Subjective Subjective: Intermittent nausea,one episode of vomiting this morning. Objective - Vital Signs/Intake and Output Vital Signs (last 24 hours): Temp Pulse Resp BP Pulse Ox 99 F 70 20 128/83 97 09/16/17 08:42 09/16/17 08:42 09/16/17 08:42 09/16/17 08:42 09/16/17 08:42 Intake and Output: 09/16/17 09/16/17 06:59 18:59 Intake Total 0 Output Total 400 Balance -400 - Medications Medications: Current Medications Digoxin (Digoxin) 0.125 mg PO 1400 [facility] Last Admin: 09/15/17 14:55 Dose: 0.125 mg Diltiazem HCl (Cardizem Cd) 120 mg PO DAILY [facility] Last Admin: 09/15/17 10:28 Dose: 120 mg Levetiracetam (Keppra 500mg Ivpb) 500 mg in 100 mls @ 400 mls/hr IV Q12 [facility] Insulin Human Regular (Humulin R Med) 0 units SC ACHS [facility] PRN Reason: Protocol Last Admin: 09/16/17 08:31 Dose: 3 units Lorazepam (Ativan) 0.5 mg IVP Q6H PRN; Protocol PRN Reason: Agitation Metoprolol Tartrate (Lopressor) 25 mg PO BID [facility] Last Admin: 09/15/17 18:01 Dose: 25 mg Morphine Sulfate (Morphine) 2 mg IVP Q4H PRN PRN Reason: Pain, severe (8-10) -breakthru Ondansetron HCl (Zofran Inj) 4 mg IVP Q6H PRN PRN Reason: Nausea/Vomiting Last Admin: 09/16/17 09:20 Dose: 4 mg Rivaroxaban (Xarelto) 15 mg PO DAILY [facility] PRN Reason: Protocol Last Admin: 09/15/17 10:27 Dose: 15 mg - Labs Labs: 09/15/17 06:00 09/15/17 06:00 - Constitutional Appears: Cachectic, Chronically Ill - Head Exam Head Exam: NORMAL INSPECTION - Eye Exam Eye Exam: Scleral icterus - ENT Exam ENT Exam: Mucous Membranes Moist - Respiratory Exam Respiratory Exam: Decreased Breath Sounds - Cardiovascular Exam Cardiovascular Exam: REGULAR RHYTHM, +S1, +S2 - GI/Abdominal Exam GI & Abdominal Exam: Distended, Soft, Hypoactive Bowel Sounds - Extremities Exam Additional comments: bilateral lower extremity edema R> L - Neurological Exam Neurological Exam: Altered Additional comments: restless - Psychiatric Exam Psychiatric exam: Agitated - Skin Skin Exam: Dry, Pallor Assessment and Plan - Assessment and Plan (Free Text) Assessment: 67 year old male with history of metastatic pancreatic cancer, DM, HTN, ascites who is admitted with altered mental status, intermittent vomiting, ascites, anemia,anorexia and deconditioning. The patient is restless/agitated. Ativan 0.5 mg IV now. The patient has intermittent vomiting. Zofran IV now. The patient denies pain. Last BM 09/09/17, abdomen soft/ distended, rectal exam > small amount of soft brown stool The patient is awaiting bed at [facility]. The patient has also been evaluated by [facility] for GIP services. Patient's son Graeme called and notified that his dad may be eligible for GIP services under [facility]. Graeme was asked to come to hospital to meet with hospice and to sign consent forms. Graeme states that he is able to come after 5 pm tonight. Plan: Constipation: Ducolax RC now. Pain: [place] ER on hold. Morphine 2mg IVP every 4 hours as needed. Restlessness/agitation: Ativan 0.5mg IV every 6 hours as needed. Nausea/ vomiting: Zofran as needed. Clear liquid diet. Goals of care/ end of life counseling: Hospice eval for [place] GIP services
[2017-09-16] MEDS: Digoxin 125 mcg (0.125 mg) Tab PO SCH (14:00)
[2017-09-16] MEDS ORDERED: Morphine 2 mg/2 mL syringe IVP PRN (16:57)
--- NOTE | 2017-09-16 17:43 | CP.PCM.PN ---
<Sorin Lr - Last Filed: 09/16/17 17:38> Subjective - Date & Time of Evaluation Date of Evaluation: 09/16/17 Time of Evaluation: 07:25 - Subjective Subjective: PGY1 Medicine Note for Dr. Tim Patient seen and examined at bedside this morning. Patient experienced vomitingx2 throughout the night. He was still nauseous and vomiting this morning. He was made NPO. Patient is experiencing visual hallucinations stating that there is a body in the corner of the room. Patient is repeatedly stating that he wants to be allowed to go home. ROS unreliable due to patient's mental status. Objective - Vital Signs/Intake and Output Vital Signs (last 24 hours): Temp Pulse Resp BP Pulse Ox 99 F 70 20 128/83 97 09/16/17 08:42 09/16/17 08:42 09/16/17 08:42 09/16/17 08:42 09/16/17 08:42 Intake and Output: 09/16/17 09/16/17 06:59 18:59 Intake Total 0 Output Total 400 Balance -400 - Medications Medications: Current Medications Digoxin (Digoxin) 0.125 mg PO 1400 [facility] Last Admin: 09/16/17 14:00 Dose: Not Given Diltiazem HCl (Cardizem Cd) 120 mg PO DAILY [facility] Last Admin: 09/16/17 10:00 Dose: Not Given Levetiracetam (Keppra 500mg Ivpb) 500 mg in 100 mls @ 400 mls/hr IV Q12 [facility] Insulin Human Regular (Humulin R Med) 0 units SC ACHS [facility] PRN Reason: Protocol Last Admin: 09/16/17 08:31 Dose: 3 units Lorazepam (Ativan) 0.5 mg IVP Q6H PRN; Protocol PRN Reason: Agitation Metoprolol Tartrate (Lopressor) 25 mg PO BID [facility] Last Admin: 09/16/17 10:00 Dose: Not Given Morphine Sulfate (Morphine) 2 mg IVP Q4H PRN PRN Reason: Pain, severe (8-10) -breakthru Ondansetron HCl (Zofran Inj) 4 mg IVP Q6H PRN PRN Reason: Nausea/Vomiting Last Admin: 09/16/17 09:20 Dose: 4 mg Rivaroxaban (Xarelto) 15 mg PO DAILY [facility] PRN Reason: Protocol Last Admin: 09/16/17 10:00 Dose: Not Given Sodium Phosphate (Fleet Enema) 135 ml RC ONCE ONE Stop: 09/16/17 20:01 - Labs Labs: 09/15/17 06:00 09/15/17 06:00 - Constitutional Appears: No Acute Distress, Confused, Chronically Ill - Eye Exam Eye Exam: Normal appearance - ENT Exam ENT Exam: Mucous Membranes Moist - Neck Exam Neck Exam: absent: Lymphadenopathy - Respiratory Exam Respiratory Exam: Clear to Ausculation Bilateral, NORMAL BREATHING PATTERN. absent: Accessory Muscle Use, Rales, Rhonchi, Wheezes, Respiratory Distress - Cardiovascular Exam Cardiovascular Exam: Irregular Rhythm, +S1, +S2 - GI/Abdominal Exam GI & Abdominal Exam: Distended, Soft. absent: Firm, Guarding, Rigid, Tenderness - Extremities Exam Extremities Exam: Pedal Edema (R>L). absent: Calf Tenderness - Neurological Exam Neurological Exam: Alert, Awake. absent: Oriented x3 - Psychiatric Exam Additional comments: confused - Skin Skin Exam: Dry, Warm Assessment and Plan - Assessment and Plan (Free Text) Assessment: 67 year old male with PMHx of Afib, Hep C, seizure, DVT, and hepatic carcinoma, Diabetes who was admitted for atrial fibrillation with rapid ventricular response. Plan: Atrial fibriallation with rapid ventricular response - EKG initially showed afib and tachycardia, irregular rhythm - Cardizem 120mg PO daily - Continue home xarelto 15mg PO daily - continue home metroprolol 25mg PO BID - continue home digoxin 0.125mg PO daily - digoxin level 0.7 (low) - Kidney function showed dehydration which may have precipitated RVR, was given fluids - NS@40 H/O Adenocarcinoma of the Upper GI/Pancreatobiliary Origin - Pain control * Morphine ER 30mg PO q12h * Morphine 1mg IVP q4h - Patient does not have POLST or advanced directive - Requested palliative care consult, Allyssa Le, reyes recs - social work consulted for placement concerns Hx of IDDM2 - ACHS - ISS Regular - Carbohydrate consistent diet Hx of Seizure disorders - Continue with keppra 500 mg bid - Seizure and fall precaution Hx of CAD s/p CABG - continue with Lopressor 25mg PO daily - continue with Lipitor 40 mg PO daily - Continue home ASA 81mg PO daily Hx of Peripheral neuropathy - continue with gabapentin 300mg PO TID Hx of Anxiety - xanax 0.25mg BID prn - Paroxetine 10mg PO HS Prophylactic Care DVT prophylaxis- Xarelto 15mg PO daily DISPO: Patient is unable to be discharged back to his house for home hospice because he lived with his daughter who is unreliable and unable to care for patient. Patient medically cleared to be transferred to inpatient [facility] hospice. Patient currently waiting for a bed at the [facility]. Patient is to be transferred to [facility] hospice tomorrow. Case discussed with Dr. Meeta Rowell Be PGY1 <Germain Tim - Last Filed: 09/17/17 12:28> Objective - Vital Signs/Intake and Output Vital Signs (last 24 hours): Temp Pulse Resp BP Pulse Ox 98.1 F 62 18 121/93 H 91 L 09/17/17 06:00 09/17/17 06:00 09/17/17 06:00 09/17/17 06:00 09/17/17 06:00 Intake and Output: 09/17/17 09/17/17 06:59 18:59 Intake Total 360 Output Total 200 Balance 160 - Labs Labs: 09/15/17 06:00 09/15/17 06:00 Attending/Attestation - Attestation I have personally seen and examined this patient.: Yes I have fully participated in the care of the patient.: Yes I have reviewed all pertinent clinical information, including history, physical exam and plan: Yes Notes (Text): 09/17/17 12:27 Attending note; Patient seen and examined with resident. Patient is a 67 year old male with past medical history of afib, hepatitis C, and GI/pancreatobiliary adenocarcinoma who was admitted for afib with RVR. He was initially treated with IV cardizem drip now switched to po since his heart rate improved. He is currently on cardizem, digoxin and metoprolol. He is on xarelto. Acute kidney injury resolved. Patient had an episode of vomiting. Nothing by mouth. Constipation; got Dulcolax suppository. fleet enema ordered. Case discussed with Dr. Bal at [facility]. Transferred to hospice care tomorrow at the [facility]. chute worker is arranging for transportation. Palliative care consult was appreciated. Patient is DNR/DNI. Patient will be placed on hospice care at [facility].
[2017-09-16 19:31] VITALS: RESP 18
[2017-09-17 08:30] VITALS: BP 121/93; PULSE 62; TEMP 98.1; O2SAT 91
[2017-09-17] MEDS: Insulin Reg-MEDIUM-Coverage SC SCH (08:48)
[2017-09-17] MEDS ORDERED: Morphine 30 mg SR Tab PO SCH (10:00)
--- NOTE | 2017-09-17 21:35 | CP.PCM.DIS ---
<Sorin Lr - Last Filed: 09/18/17 05:38> Provider - Provider Date of Admission: 09/08/17 16:18 Attending physician: Germain Tim MD Primary care physician: NO PRIMARY CARE PROVIDER Time Spent in preparation of Discharge (in minutes): 120 Diagnosis - Discharge Diagnosis (1) Atrial fibrillation with RVR Status: Resolved (2) Metastases to the liver Status: Chronic Priority: High (3) Pancreatic mass Status: Chronic Priority: High Hospital Course - Lab Results Lab Results: Micro Results 09/09/17 21:13 Urine,Barrios Urine Culture - Final No Growth (<1,000 CFU/ML) Most Recent Lab Values WBC 8.6 10^3/ul (4.5-11.0) D 09/15/17 06:00 RBC 4.45 10^6/uL (3.5-6.1) 09/15/17 06:00 Hgb 11.7 g/dL (14.0-18.0) L 09/15/17 06:00 Hct 38.4 % (42.0-52.0) L 09/15/17 06:00 MCV 86.3 fl (80.0-105.0) 09/15/17 06:00 MCH 26.3 pg (25.0-35.0) 09/15/17 06:00 MCHC 30.5 g/dl (31.0-37.0) L 09/15/17 06:00 RDW 15.6 % (11.5-14.5) H 09/15/17 06:00 Plt Count 240 10^3/uL (120.0-450.0) 09/15/17 06:00 MPV 10.6 fl (7.0-11.0) 09/15/17 06:00 Gran % 87.1 % (50.0-68.0) H 09/15/17 06:00 Lymph % (Auto) 5.7 % (22.0-35.0) L 09/15/17 06:00 [place] % (Auto) 6.5 % (1.0-6.0) H 09/15/17 06:00 Eos % (Auto) 0.5 % (1.5-5.0) L 09/15/17 06:00 Baso % (Auto) 0.2 % (0.0-3.0) 09/15/17 06:00 Gran # 7.44 (1.4-6.5) H 09/15/17 06:00 Lymph # (Auto) 0.5 (1.2-3.4) L 09/15/17 06:00 [place] # (Auto) 0.6 (0.1-0.6) 09/15/17 06:00 Eos # (Auto) 0.0 (0.0-0.7) 09/15/17 06:00 Baso # (Auto) 0.02 K/mm3 (0.0-2.0) 09/15/17 06:00 Sodium 145 mmol/L (132-148) 09/15/17 06:00 Potassium 4.4 mmol/L (3.6-5.0) 09/15/17 06:00 Chloride 108 mmol/L (98-107) H 09/15/17 06:00 Carbon Dioxide 22 mmol/L (21-33) 09/15/17 06:00 Anion Gap 20 (10-20) 09/15/17 06:00 BUN 18 mg/dL (7-21) 09/15/17 06:00 Creatinine 0.8 mg/dl (0.8-1.5) 09/15/17 06:00 Est GFR ( Amer) > 60 09/15/17 06:00 Est GFR (Non-Af Amer) > 60 09/15/17 06:00 POC Glucose (mg/dL) 221 mg/dL (65-110) H 09/17/17 07:28 Random Glucose 244 mg/dL (70-110) H 09/15/17 06:00 Calcium 8.8 mg/dL (8.4-10.5) 09/15/17 06:00 Phosphorus 5.0 mg/dL (2.5-4.5) H 09/08/17 06:00 Magnesium 2.3 mg/dL (1.7-2.2) H 09/08/17 06:00 Total Bilirubin 0.6 mg/dL (0.2-1.3) 09/15/17 06:00 AST 25 U/L (17-59) 09/15/17 06:00 ALT 24 U/L (7-56) 09/15/17 06:00 Alkaline Phosphatase 79 U/L (38-126) 09/15/17 06:00 Troponin I 0.04 ng/mL 09/08/17 08:00 Total Protein 5.4 g/dL (5.8-8.3) L 09/15/17 06:00 Albumin 2.6 g/dL (3.0-4.8) L 09/15/17 06:00 Globulin 2.7 gm/dL 09/15/17 06:00 Albumin/Globulin Ratio 1.0 (1.1-1.8) L 09/15/17 06:00 Digoxin 0.7 ng/mL (0.8-2.0) L 09/08/17 11:00 Urine Opiates Screen Positive (NEGATIVE) H 09/07/17 13:00 Urine Methadone Screen Negative (NEGATIVE) 09/07/17 13:00 Ur Barbiturates Screen Negative (NEGATIVE) 09/07/17 13:00 Ur Phencyclidine Scrn Negative (NEGATIVE) 09/07/17 13:00 Ur Amphetamines Screen Negative (NEGATIVE) 09/07/17 13:00 U Benzodiazepines Scrn Positive (NEGATIVE) 09/07/17 13:00 U Oth Cocaine Metabols Negative (NEGATIVE) 09/07/17 13:00 U Cannabinoids Screen Positive (NEGATIVE) H 09/07/17 13:00 - Hospital Course Hospital Course: As per admission documentation 67 yo M with PMHx of Afib, Hep C, seizure, DVT, IDDM who presents to the ER immediately after discharge after being seen for a leg laceration, unable to return home because no one is home to help him, and was also found to have tachycardia. Patient has known afib. He denies any chest pain, shortness of breath, abdominal pain, nausea, vomiting, diarrhea, constipation, fever, chills , palpitations, headache, cough. Patient had fallen, earlier today and came to the ER for laceration of his leg which was sutured. He was discharged home with PO antibiotics, but then was unable to go home because no one was there to help him, and so he promptly returned to the ER. Patient has altered mental status at baseline, and is oriented to person and place, but not to time. ROS is limited by his mental status. Hospital Course Patient was admitted to telemetry for afib RVR. Patient was started on a Cardizem drip and his home medications were resumed. The patient's rate improved and he was transitioned back to oral Cardizem after one day. Patient was initially set up on home hospice but due to his home living situation, patient could not be discharged home safely. Patient's son, Graeme, agreed and filled out paperwork to transfer patient to inpatient hospice at [facility] in [place]. Inpatient hospice was initially full so transfer to [facility] had to be delayed. Patient was also accepted at [facility] for hospice as long as income was turned over to facility but the patient's son is refused to turn income over and stated he wants to wait for a bed at the [facility] facility. Dr. Tim discussed patient's case with Dr. Bal at [facility]. Patient was transferred to inpatient hospice at the [facility] on 09/17. Discharge Instructions Patient is to be transferred to inpatient hospice at the [facility] in [place], [place]. Continue medications as directed. This is just a brief summary of the patient's hospital course. Please see EMR for full detail. Discharge Exam - Head Exam Head Exam: NORMAL INSPECTION - Eye Exam Eye Exam: Normal appearance - ENT Exam ENT Exam: Mucous Membranes Moist - Respiratory Exam Respiratory Exam: Clear to PA & Lateral, NORMAL BREATHING PATTERN. absent: Accessory Muscle Use, Rhonchi, Wheezes, Respiratory Distress - Cardiovascular Exam Cardiovascular Exam: Irregular Rhythm, +S1 - Extremities Exam Extremities exam: pedal edema - Neurological Exam Neurological exam: Alert Additional comments: Orientated to self but not place or time. - Psychiatric Exam Psychiatric exam: Flat Affect Additional comments: confused - easily reoriented. visual hallucinations ("there is a mariel in the corner"). Continually asking to be sent home because he does not want to be in the hospital any longer. - Skin Skin Exam: Dry, Warm Discharge Plan - Follow Up Plan Condition: FAIR Disposition: HOSPICE - MEDICAL FACILITY Instructions: Atrial Fibrillation, Preventing Falls in the Older Adult, Pancreatic Cancer (DC), Palliative Care Additional Instructions: Patient is to be transferred to inpatient hospice at [facility] in [place], [place]. Continue medications as directed. Referrals: PCP,NO [Primary Care Provider] - <Germain Tim - Last Filed: 09/18/17 15:00> Provider - Provider Date of Admission: 09/08/17 16:18 Attending physician: Germain Tim MD Primary care physician: NO PRIMARY CARE PROVIDER Hospital Course - Lab Results Lab Results: Micro Results 09/09/17 21:13 Urine,Barrios Urine Culture - Final No Growth (<1,000 CFU/ML) Most Recent Lab Values WBC 8.6 10^3/ul (4.5-11.0) D 09/15/17 06:00 RBC 4.45 10^6/uL (3.5-6.1) 09/15/17 06:00 Hgb 11.7 g/dL (14.0-18.0) L 09/15/17 06:00 Hct 38.4 % (42.0-52.0) L 09/15/17 06:00 MCV 86.3 fl (80.0-105.0) 09/15/17 06:00 MCH 26.3 pg (25.0-35.0) 09/15/17 06:00 MCHC 30.5 g/dl (31.0-37.0) L 09/15/17 06:00 RDW 15.6 % (11.5-14.5) H 09/15/17 06:00 Plt Count 240 10^3/uL (120.0-450.0) 09/15/17 06:00 MPV 10.6 fl (7.0-11.0) 09/15/17 06:00 Gran % 87.1 % (50.0-68.0) H 09/15/17 06:00 Lymph % (Auto) 5.7 % (22.0-35.0) L 09/15/17 06:00 [place] % (Auto) 6.5 % (1.0-6.0) H 09/15/17 06:00 Eos % (Auto) 0.5 % (1.5-5.0) L 09/15/17 06:00 Baso % (Auto) 0.2 % (0.0-3.0) 09/15/17 06:00 Gran # 7.44 (1.4-6.5) H 09/15/17 06:00 Lymph # (Auto) 0.5 (1.2-3.4) L 09/15/17 06:00 [place] # (Auto) 0.6 (0.1-0.6) 09/15/17 06:00 Eos # (Auto) 0.0 (0.0-0.7) 09/15/17 06:00 Baso # (Auto) 0.02 K/mm3 (0.0-2.0) 09/15/17 06:00 Sodium 145 mmol/L (132-148) 09/15/17 06:00 Potassium 4.4 mmol/L (3.6-5.0) 09/15/17 06:00 Chloride 108 mmol/L (98-107) H 09/15/17 06:00 Carbon Dioxide 22 mmol/L (21-33) 09/15/17 06:00 Anion Gap 20 (10-20) 09/15/17 06:00 BUN 18 mg/dL (7-21) 09/15/17 06:00 Creatinine 0.8 mg/dl (0.8-1.5) 09/15/17 06:00 Est GFR ( Amer) > 60 09/15/17 06:00 Est GFR (Non-Af Amer) > 60 09/15/17 06:00 POC Glucose (mg/dL) 221 mg/dL (65-110) H 09/17/17 07:28 Random Glucose 244 mg/dL (70-110) H 09/15/17 06:00 Calcium 8.8 mg/dL (8.4-10.5) 09/15/17 06:00 Phosphorus 5.0 mg/dL (2.5-4.5) H 09/08/17 06:00 Magnesium 2.3 mg/dL (1.7-2.2) H 09/08/17 06:00 Total Bilirubin 0.6 mg/dL (0.2-1.3) 09/15/17 06:00 AST 25 U/L (17-59) 09/15/17 06:00 ALT 24 U/L (7-56) 09/15/17 06:00 Alkaline Phosphatase 79 U/L (38-126) 09/15/17 06:00 Troponin I 0.04 ng/mL 09/08/17 08:00 Total Protein 5.4 g/dL (5.8-8.3) L 09/15/17 06:00 Albumin 2.6 g/dL (3.0-4.8) L 09/15/17 06:00 Globulin 2.7 gm/dL 09/15/17 06:00 Albumin/Globulin Ratio 1.0 (1.1-1.8) L 09/15/17 06:00 Digoxin 0.7 ng/mL (0.8-2.0) L 09/08/17 11:00 Urine Opiates Screen Positive (NEGATIVE) H 09/07/17 13:00 Urine Methadone Screen Negative (NEGATIVE) 09/07/17 13:00 Ur Barbiturates Screen Negative (NEGATIVE) 09/07/17 13:00 Ur Phencyclidine Scrn Negative (NEGATIVE) 09/07/17 13:00 Ur Amphetamines Screen Negative (NEGATIVE) 09/07/17 13:00 U Benzodiazepines Scrn Positive (NEGATIVE) 09/07/17 13:00 U Oth Cocaine Metabols Negative (NEGATIVE) 09/07/17 13:00 U Cannabinoids Screen Positive (NEGATIVE) H 09/07/17 13:00 Attending/Attestation - Attestation I have personally seen and examined this patient.: Yes I have fully participated in the care of the patient.: Yes I have reviewed all pertinent clinical information, including history, physical exam and plan: Yes Notes (Text): 09/18/17 14:59 Attending note; Patient seen and examined with resident. Patient is a 67 year old male with past medical history of afib, hepatitis C, and GI/pancreatobiliary adenocarcinoma who was admitted for afib with RVR. He was initially treated with IV cardizem drip now switched to po since his heart rate improved. He is currently on cardizem, digoxin and metoprolol. He is on xarelto. Acute kidney injury resolved. Patient had an episode of vomiting. Nothing by mouth. Constipation; got Dulcolax suppository. fleet enema ordered. Case discussed with Dr. Bal at [facility]. Transferred to hospice care at [facility] today. Patient's son was informed by social science teacher yesterday. Patient's daughter also visited the patient last night. Patient is DNR/DNI. Patient will be placed on hospice care at [facility].
== END 2017-09-17 10:50 | disposition hospice, inpatient (51) | DRG 309 ==
LOC: ED 02:40 → ERH 03:37 → 2RSO 04:40 → OBSVTOIN 09-08 16:18 → 3RSO 09-10 17:39
PROVIDERS: ADMIT Internal Medicine; ATTEND Internal Medicine
DX: I48.91 Unspecified atrial fibrillation (principal); C78.7 Secondary malignant neoplasm of liver and intrahepatic bile duct; C25.9 Malignant neoplasm of pancreas, unspecified; N17.9 Acute kidney failure, unspecified; R18.8 Other ascites; B19.20 Unspecified viral hepatitis C without hepatic coma; I25.10 Atherosclerotic heart disease of native coronary artery without angina pectoris; E11.42 Type 2 diabetes mellitus with diabetic polyneuropathy; F12.90 Cannabis use, unspecified, uncomplicated; J44.9 Chronic obstructive pulmonary disease, unspecified; G40.909 Epilepsy, unspecified, not intractable, without status epilepticus; R29.6 Repeated falls; E86.0 Dehydration; Z66 Do not resuscitate; K59.00 Constipation, unspecified; D64.9 Anemia, unspecified; I10 Essential (primary) hypertension; H54.62 Unqualified visual loss, left eye, normal vision right eye; Z51.5 Encounter for palliative care; Z79.01 Long term (current) use of anticoagulants; Z95.1 Presence of aortocoronary bypass graft; Z79.4 Long term (current) use of insulin; Z95.5 Presence of coronary angioplasty implant and graft; Z87.891 Personal history of nicotine dependence